=== PATIENT | male | born 1960 | race Caucasian/White ===

== ENCOUNTER 2023-12-15 14:43 | Outpatient (OUT) | payer BC, SELFPAY ==
--- NOTE | 2023-12-15 07:51 | CA_ITS ---
Patient Name: REECE HOGUE MR#: [id number] : 1960 Exam Date: 12/15/2023 Ordering Doctor: JOSE E WOO ECHOCARDIOGRAM REPORT PROCEDURE: CA ECHO DOPPLER COMPLETE INDICATIONS: Hypertensive heart disease without heart failure, Abn EKG COMPARISON: None. DESCRIPTION: COMPLETE ECHOCARDIOGRAM Real-time transthoracic echocardiography with 2D, M-mode, spectral and color flow Doppler performed. QUALITY: Technical quality was adequate. LEFT VENTRICLE: Normal chamber size. Moderate concentric left ventricular hypertrophy. LV EF: Global left ventricular systolic function is normal. Calculated left ventricular ejection fraction is 55% DIASTOLIC: Not adequately assessed due to heart rhythm. ATRIAL SEPTUM: Inadequately seen. LEFT ATRIUM: Severe dilatation. RIGHT ATRIUM: Moderate dilatation. RIGHT VENTRICLE: Mild dilatation. Normal right ventricular systolic function. TRICUSPID VALVE: Normal mobility and thickness. No stenosis with trivial regurgitation. Moderate pulmonary hypertension. RVSP 46mmHg MITRAL VALVE: Normal mobility and thickness. No evidence of mitral valve stenosis. There is no mitral annular calcification. Mild mitral regurgitation. AORTIC VALVE: Normal trileaflet appearance. No visible sclerosis. Normal leaflet mobility. No evidence of aortic valve stenosis. Trivial aortic regurgitation. AORTIC ROOT: Normal diameter and appearance. PULMONIC VALVE: Normal thickness and mobility. No stenosis. Trivial regurgitation. PERICARDIUM: Trivial pericardial effusion. IVC: Collapses with inspirations. Mild dilatation measuring 2.2cm. CONCLUSION: 1. Global left ventricular systolic function is normal; visually estimated ejection is 55 to 60% 2. Moderately increased left ventricular wall thickness 3. The right ventricle is mildly dilated with normal systolic function 4. Biatrial enlargement 5. Moderately increased right ventricular systolic pressure; RVSP 46 mmHg 6. Mild mitral regurgitation 7. Trivial pericardial effusion Adult Echocardiography Procedure Report Left Ventricle LVEDD (3.7 - 5.6 cm): 4.92 cm LVESD (2.2 - 4.0 cm): 3.44 cm LVIVS thickness (0.6 - 1.2 cm): 1.27 cm LVPW thickness (0.5 - 1.0 cm): 1.37 cm e': 0.17 m/s E - e': 4.20 LVOT Max Gradient: 3.17 mm[Hg] LVOT Area (cm2): 0.89 m/s Peak Velocity (LVOT): 0.89 m/s Mean Velocity (LVOT): 0.61 m/s LVOT Diameter 2.34 cm Left Ventricular Ejection Fraction: 55.08 % Left Atrium LA Volume Index (2D A2C): 67.76 ml/m2 Left Atrium Systolic Dimension: 3.87 cm Mitral Valve MV E to A Ratio: 122.69 Mitral Valve A-Wave Peak Velocity: 0.01 m/s Mitral Valve E-Wave Peak Velocity: 0.72 m/s Right Ventricle RV Internal Diastolic Dimension: 4.24 cm Aorta AO Root Diam: 3.60 cm Ascending Ao Diam: 3.30 cm Aortic Valve AoV Area (Peak Carlos): 3.29 cm2, 3.29 cm2 AoV Area (VTI): 3.58 cm2, 3.58 cm2 Peak Velocity(Antegrade Flow): 1.16 m/s Peak Gradient(Antegrade Flow): 5.38 mm[Hg] Mean Velocity(Antegrade Flow): 0.81 m/s Mean Gradient(Antegrade Flow): 3.02 mm[Hg] Velocity Time Integral: 23.39 cm Tricuspid Valve Peak Velocity (Regurgitant Flow): 2.37 m/s, 2.42 m/s, 3.08 m/s Pulmonic Valve Mean Gradient: 2.17 mm[Hg] Mean Velocity: 0.65 m/s Peak Velocity: 1.21 m/s, 1.21 m/s Peak Gradient: 5.83 mm[Hg], 5.83 mm[Hg] Right Atrium Right Atrium Systolic Pressure: 104.78 ml, 104.78 ml Dictated by: Lauro Covarrubias M.D. on 12/17/2023 at 12:56 Approved by: Lauro Covarrubias M.D. on 12/17/2023 at 13:03
== END 2023-12-15 14:44 | disposition home or self-care (01) ==
LOC: CARD 14:44
PROVIDERS: PCP Family Medicine; Visit Provider Internal Medicine Cardiovascular Disease
DX: I11.9 Hypertensive heart disease without heart failure (principal); R94.31 Abnormal electrocardiogram [ECG] [EKG]
CPT/HCPCS: 93306

== ENCOUNTER 2024-01-15 09:32 | Outpatient (REF) | payer BC, OTHER, SELFPAY ==
--- OUTSIDE RECORDS SUMMARY | 2024-01-15 09:37 | XMS_ITS | CCD ---
Author Name Unknown Address [address] [facility] [address] [place] [address] Organization [facility] Care Team Providers Care Patient Accounts Coordinator Name Role Phone PHYSICIAN, DEFAULT Unavailable Unavailable PHYSICIAN, DEFAULT Unavailable Unavailable CHLOÉ, HANI Unavailable Unavailable YURY FUNEZ AM Unavailable Unavailable KACY JACOBSON Unavailable Unavailable PRIMO GLASER Unavailable Unavailable [place] Unavailable Unavailable UNKNOWN, PROVIDER Unavailable Unavailable PHYSICIAN, DEFAULT Unavailable Unavailable PHYSICIAN, DEFAULT Unavailable Unavailable KACY JACOBSON Unavailable Unavailable HAROLDO, RENU Consulting Unavailable HOY ., DR WOODRUFF Primary Care Unavailable HAROLDO, RENU Admitting Unavailable HAROLDO, RENU Attending Unavailable HAROLDO, RENU Attending Unavailable HAROLDO, RENU Consulting Unavailable HOY ., DR WOODRUFF Primary Care Unavailable HAROLDO, RENU Admitting Unavailable HAROLDO, RENU Consulting Unavailable HAROLDO, RENU Admitting Unavailable HOY ., DR WOODRUFF Primary Care Unavailable HAROLDO, RENU Attending Unavailable HAROLDO, RENU Admitting Unavailable HAROLDO, RENU Consulting Unavailable HOY .DR WOODRUFF Primary Care Unavailable HAROLDO, RENU Attending Unavailable HAROLDO, RENU Attending Unavailable HAROLDO, RENU Consulting Unavailable HOY .DR WOODRUFF Primary Care Unavailable HAROLDO, RENU Admitting Unavailable HOY .DR WOODRUFF Primary Care Unavailable HOY ., DR WOODRUFF Admitting Unavailable HOY ., DR WOODRUFF Attending Unavailable HOY ., DR WOODRUFF Consulting Unavailable HOY ., DR WOODRUFF Primary Care Unavailable HOY ., DR WOODRUFF Admitting Unavailable HOY ., DR WOODRUFF Attending Unavailable HOY ., DR WOODRUFF Consulting Unavailable ZIEBER, DR JO Brody Consulting Unavailable Ellie Rodríguez Unavailable Unavailable Luke Reinoso Unavailable Unavailable UNKNOWN, PCP Primary Care Unavailable Luke Reinoso Attending Unavailable UNKNOWN, UNKNOWN Referring Unavailable UNKNOWN, PCP Primary Care Unavailable Dr. Randy Khanna Referring Unavail able Luke Reinoso Attending Unavailable UNKNOWN, PCP Primary Care Unavailable Jaimee Negrete Attending Unavailable Luke Reinoso Referring Unavailable MD Sher Whitfield Attending Provider MD Kacy Jacobson Primary Care Provider Sher Whitfield Unavailable Sher Whitfield Attending Unavailable Sher Whitfield Admitting Unavailable Kacy Jacobson Primary Care Unavailable KATHE DE DIOS Attending Unavailable RANDY CARRANZA Attending Unavailable Allergies Allergy Classification Reported Allergen(s) Allergy Type Date of Onset Reaction(s) Facility (1 source) No Alert Propensity to adverse reactions to drug 3 [facility] Medications Current Medications Medication Drug Class(es) Dates Sig (Normalized) Sig (Original) diclofenac 18 mg oral capsule (1 source) Nonsteroidal Anti-inflammatory Drug take 1 capsule by mouth three times daily as needed Diclofenac 18 MG 1 capsule as needed Orally Three times a day Active lisinopril 10 mg oral tablet (1 source) Angiotensin Converting Enzyme Inhibitor take 1 tablet by mouth every twenty-four hours Lisinopril 10 MG 1 tablet Orally Once a day Active metoprolol tartrate 75 mg oral tablet (1 source) beta-Adrenergic Mehreen take 1 tablet by mouth every twelve hours Metoprolol Tartrate 75 MG 1 tablet with food Orally Twice a day Active rivaroxaban 20 mg oral tablet (1 source) Factor Xa Inhibitor take 1 tablet by mouth every twenty-four hours Xarelto 20 MG 1 tablet with food Orally Once a day Active traZODone hydrochloride 50 mg oral tablet (1 source) Serotonin Reuptake Inhibitor take 1 tablet by mouth every twenty-four hours traZODone HCl 50 MG 1 tablet at bedtime as needed Orally Once a day Active (4 sources) Problems Problem Classification Problem Date Documented Da te Episodic/Chronic Cardiac dysrhythmias (3 sources) Unspecified atrial fibrillation; 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: [Paroxysmal atrial fibrillation] Onset: 09-10-2018 Chronic Hypertension with complications and secondary hypertension (3 sources) Hypertensive heart disease without heart failure; 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: [HTN HEART DISEASE W/O HEART FAIL] Onset: 09-10-2022 Chronic Other aftercare (1 source) 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; 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: [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] Onset: 09-10-2018 Episodic Other aftercare (2 sources) Encounter for removal of sutures Onset: 03-18-2023 Episodic Other connective tissue disease (1 source) Pain in right leg Episodic Other connective tissue disease (1 source) Pain in left leg Episodic Other nervous system disorders (4 sources) Anesthesia of skin; 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: [ANESTHESIA OF SKIN] Onset: 02-18-2023 Episodic Other screening for suspected conditions (not mental disorders or infectious disease) (1 source) Encounter for screening for malignant neoplasm of prostate; 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: [ENC SCREEN MALIG NEOPLASM PROSTATE] Onset: 01-26-2023 Episodic Residual codes; unclassified (4 sources) Obstructive sleep apnea (adult) (pediatric); 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: [OBSTRUCTIVE SLEEP APNEA] Onset: 12-09-2022 Chronic Residual codes; unclassified (2 sources) No current problems or disability; 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: [Other specified conditions influencing health status] Onset: 03-02-2023 Episodic Spondylosis; intervertebral disc disorders; other back problems (1 source) Spinal stenosis, lumbar region without neurogenic claudication Episodic Unclassified (2 sources) Unknown / UNK(Unknown) Onset: 09-10-2018 Unclassified (6 sources) Permanent atrial fibrillation; 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: [PERMANENT ATRIAL FIBRILLATION] Onset: 08-19-2022 Unclassified (6 sources) Chronic atrial fibrillation, unspecified; 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: [CHRONIC ATRIAL FIBRILLATION UNSPEC] Onset: 09-24-2022 Unclassified (1 source) Low back pain, unspecified; 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: [Low back pain, unspecified] Onset: 10-01-2023 Results Test Name Value Interpretation Reference Range Facility Office Visiton 11-10-2023 Follow-up visit [id number] Susanna Hogue 1960 M Date Provider Department Center 11/10/2023 RANDY JOHNSTON BRITNEY [facility] Family History Problem Relation Age of Onset Heart attack Maternal Grandfather Family Status - Relation Status Age at Maternal Grandfather Level of Service:31942 [place] OFFICE/OUTPATIENT ESTABLISHED LOW MDM 20 MIN Normal [facility] Orders Onlyon 11-10-2023 Orders Only [id number] Susanna Hogue D 1960 M Date Provider Department Center 11/10/2023 CRISTINO AYALA BRITNEY Luis Family History Problem Relation Age of Onset Heart attack Maternal Grandfather Family Status - Relation Status Age at Maternal Grandfather [facility] XR lumbar spine 6V w bending on 10-01-2023 XR lumbar spine 6V w bending [facility] [place] [address] [place], [place] [id number] XRay Report Signed Patient: Reece Hogue MR#: [id number] : 1960 Acct:[id number] Age/Sex: 63 / M ADM Date: 10/01/23 Loc: XD Room: Type: [facility] Attending Dr: Sher Whitfield MD Copies to: Sher Whitfield MD Ordering Provider: Sher Whitfield MD Date of Service: 10/01/23 XR/XR lumbar spine 6V w bending: M54.50 LUMBAR SPINE WITH FLEXION, EXTENSION AND BENDING VIEWS - 6 views: CLINICAL HISTORY: Numbness and tingling at the legs. Back pain. COMPARISON: MRI 02/18/2023 Standing AP neutral, right and left bending as well as lateral views in neutral, flexion and extension were obtained. There is osteopenia. There is redemonstration of retrolisthesis of L2 on L3, L3 on L4 and L5 on S1. Alignment does not change significantly with flexion or extension. There are no acute fractures. There is multilevel disc space narrowing, endplate spurring and facet disease. The SI joints show mild sclerosis. There are no paraspinal soft tissue abnormalities. XR/XR lumbar spine 6V w bending IMPRESSION: MULTILEVEL DEGENERATIVE CHANGES. Impression dictated by: Nila Christensen M.D.10/01/2023 12:35 PM Dictation Location: [place] [address] Transcribed By: [facility] 10/01/23 1235 Dictated By: Nila Christensen MD 10/01/23 1226 Signed By: 10/01/23 1235 [facility] Office Visiton 04-01-2023 Follow-up visit [id number] Susanna Hogue Dionicio 1960 M Date Provider Department Center 04/01/2023 KATHE POLLACK Family History Problem Relation Age of Onset Heart attack Maternal Grandfather Family Status - Relation Status Age at Maternal Grandfather Level of Service:52375 [place] OFFICE/OUTPATIENT ESTABLISHED MOD MDM 30-39 MIN Reason for Visit and Comments: Atrial Fibrillation [80] Hypertension [299800] Normal [facility] Dermatopathologyon 3 Dermatopathology Name: REECE HOGUE Pathologist: JAIMEE NEGRETE MD Date of Procedure: 02/24/2023 Date Received: 02/24/2023 Date Reported 02/25/2023 Submitting Physician: LUKE REINOSO MD, Location: [facility] Copy To/Referring/Attending: MD KAUR PERDOMO FINAL DIAGNOSIS 4 SLIDES, [facility], #[id number] (BX: 02/03/2023) SKIN, LEFT NASAL SIDEWALL, SHAVE BIOPSY: MALIGNANT MELANOMA, BRESLOW THICKNESS AT LEAST 0.5 MM, PRESENT ON THE DEEP AND PERIPHERAL MARGIN, SEE NOTE. Note: Microscopic examination reveals a specimen that extends into the mid reticular dermis. There is dense solar elastosis and there is an asymmetric proliferation of nested and single atypical melanocytes along the dermal-epidermal junction and involving follicular epithelium. There is an area of single atypical hyperchromatic cells in the dermis that stain with antibodies against SOX-10 and PRAME. The melanocytes in the epidermis stain weakly with antibodies against Melan-A. Electronically Signed Out by JAIMEE NEGRETE M.D. CANCER SUMMARY REPORT A. 4 SLIDES, [facility], #[id number] (BX: 02/03/2023): SPECIMEN Procedure: Biopsy, shave Specimen Laterality: Left TUMOR Tumor Site: Skin of other and unspecified parts of face: Left nasal sidewall Histologic Type: Lentigo maligna melanoma Maximum Tumor (Breslow) Thickness (Millimeters): At least: 0.5 mm Focally transected on the deep margin. Ulceration: Not identified Anatomic (Tee) Level: At least level: III Focally transected on the deep margin. Mitotic Rate: None identified Microsatellite(s): Not identified Lymphovascular Invasion: Not identified Neurotropism: Not identified Tumor-Infiltrating Lymphocytes: Not identified Tumor Regression: Not identified MARGINS Margin Status for Invasive Melanoma: Invasive melanoma present at margin Margin(s) Involved by Invasive Melanoma: Deep Margin Status for Melanoma in situ: Melanoma in situ present at margin Margin(s) Involved by Melanoma in Situ: Peripheral Deep: At the periphery PATHOLOGIC STAGE CLASSIFICATION (pTNM, AJCC 8th Edition) Reporting of pT categories is based on information available to the pathologist at the time the report is issued. As per the AJCC (Chapter 1, 8th Ed.) it is the managing physician?s responsibility to establish the final pathologic stage based upon all pertinent information, including but potentially not limited to this pathology report. pT Category: pT1a ADDITIONAL FINDINGS Additional Findings: None ADDITIONAL TESTING Wax Pumper Blocks: Normal Block: None Tumor Block: A1 Electronically Signed Out By JAIMEE NEGRETE MD/MARISSA Diagnostic interpretation performed at [facility] [address] [facility], [facility] [address] Clinical History: 8 MM, NEOPLASM OF UNSPECIFIED BEHAVIOR VS. LENTIGO Specimens Submitted As: A: 4 SLIDES, [facility], #[id number] (BX: 02/03/2023) Gross Description: Received for consultation from [facility] are four slides labeled [id number] (BX: 02/03/2023) along with the corresponding pathology report. Slide/Block Description 4 SLIDES, [id number]. Keep Slides: N Slides Returned: N Personal Consult: N [facility] Comment on above: Performed By: #### D #### Dermatopathology MRI LSPINE WO CONon 02-19-20 23 MRI LSPINE WO CON EXAMINATION: MRI LSP INE WO CON HISTORY: Numbness ; chronic numbness and tingling in both legs COMPARISON: No relevant comparison available. TECHNIQUE: A variety of imaging planes and parameters were utilized for visualization of suspected pathology. FINDINGS: For the purposes of numbering, sagittal T2 image # 8 extends from the T11 vertebral body superiorly to the S3 level inferiorly. PARASPINAL AREA: Normal with no visible mass. BONES: No fracture, pars defect, or osseous lesion. CORD/CAUDA EQUINA: Normal caliber, contour, and signal intensity. DISC LEVELS: 12-L1: Moderate degenerative disc disease is present without visible neural impingement. L1-L2: Moderate degenerative disc disease is present without visible neural impingement. L2-L3: Marked central canal narrowing with moderate-marked foramen narrowing bilaterally. Moderate diffuse disc bulging with moderate-marked disc height reduction. Mild degenerative facet arthropathy. L3-L4: Moderate central canal and bilateral foramen narrowing. Mild diffuse disc bulging with moderate disc height reduction. Moderate degenerative facet arthropathy and ligamentum flavum thickening. L4-L5: Marked central canal narrowing. Moderate foramen narrowing bilaterally. Moderate diffuse disc bulging with posterior disc-osteophyte complex. Moderate disc height reduction and marked right, moderate left degenerative facet arthropathy. L5-S1: Mild central canal, moderate right, marked left foramen narrowing. Moderate diffuse disc bulging with mild disc at reduction. Moderate degenerative facet arthropathy bilaterally. IMPRESSION: 1. Marked central canal narrowing L2-L3, L4-L5. Moderate at L3-L4. 2. Multilevel moderate to marked foraminal narrowing secondary to degenerative disc disease and facet arthropathy. Electronically authenticated by: JO RUSSELL Date: 2023-02-18 14:29 Normal [facility] INSULINon 01-23-2023 Insulin 7.9 uIU/mL Normal 2.6-24.9 [facility] Comment on above: Performed By: #### T 7, URIC, TSH, CMP, LIPID #### [facility] [address] [place] [address] [address] Ayush Sorto CBC AUTO DIFFon 01-22-2023 BASO # 0.0 103/ul Normal 0.0-0.1 [facility] Comment on above: Performed By: #### C BC #### [facility] [address] [address] [address] Ayush Sorto Basophils/100 WBC (Bld) 0.6 % Normal 0.2-2.0 [facility] Comment on above: Performed By: #### C BC #### [facility] [address] [address] [address] Ayush Sorto EO # 0.2 103/ul Normal 0.0-0.7 [facility] Comment on above: Performed By: #### C BC #### [facility] [address] [place] [address] Dr. Ayush Sorto Eosinophils/100 WBC (Bld) 2.3 % Normal 0.9-7.0 [facility] Comment on above: Performed By: #### C BC #### [facility] [address] [place] [address] Dr. Ayuhs Sorto Erythrocyte distribution width (RBC) [Ratio] 13.2 % Normal 11.0-15.0 [facility] Comment on above: Performed By: #### C BC #### [facility] [address] [place] [address] Dr. Ayush Sorto Hematocrit (Bld) [Volume fraction] 48.6 % Normal 42.0-54.0 [facility] Comment on above: Performed By: #### C BC #### [facility] [address] [place] [address] Dr. Ayush Sorto Hemoglobin (Bld) [Mass/Vol] 16.4 g/dL Normal 14.0-18.0 [facility] Comment on above: Performed By: #### C BC #### [facility] [address] [place] [address] Dr. Ayush Sorto IG # 0.02 10e3/ul Normal 0.00-0.03 [facility] Comment on above: Performed By: #### C BC #### [facility] [address] [place] [address] Dr. Ayush Sorto IG % 0.3 % Normal 0.0-0.5 [facility] Comment on above: Performed By: #### C BC #### [facility] [address] [place] [address] Dr. Ayush Sorto LYMPH # 1.6 103/ul Normal 1.2-3.8 [facility] Comment on above: Performed By: #### C BC #### [facility] [address] [place] [address] Dr. Ayush Sorto Lymphocytes/100 WBC (Bld) 24.7 % Normal 20.5-60.0 [facility] Comment on above: Performed By: #### C BC #### [facility] [address] [place] [address] Dr. Ayush Sorto MANUAL DIFF REQ NO Normal [facility] Comment on above: Performed By: #### C BC #### [facility] [address] [address] [address] Ayush Sorto MCH (RBC) [Entitic mass] 30.0 pg Normal 25.9-34.0 [facility] Comment on above: Performed By: #### C BC #### [facility] [address] [place] [address] Dr. Ayush Sorto MCHC (RBC) [Mass/Vol] 33.7 g/dL Normal 29.9-35.2 [facility] Comment on above: Performed By: #### C BC #### [facility] [address] [place] [address] Dr. Ayush Sorto MCV (RBC) [Entitic vol] 89.0 fL Normal 80.0-94.0 [facility] Comment on above: Performed By: #### C BC #### [facility] [address] [place] [address] Dr. Ayush Sorto MONO # 0.7 103/ul Normal 0.3-0.8 [facility] Comment on above: Performed By: #### C BC #### [facility] [address] [place] [address] Dr. Ayush Sorto Monocytes/100 WBC (Bld) 10.1 % Normal 1.7-12.0 [facility] Comment on above: Performed By: #### C BC #### [facility] [address] [place] [address] Dr. Ayush Sorto NEUT # 4.1 103/ul Normal 1.4-6.5 [facility] Comment on above: Performed By: #### C BC #### [facility] [address] [place] [address] Dr. Ayush Sorto Neutrophils/100 WBC (Bld) 62.0 % Normal 43.0-75.0 [facility] Comment on above: Performed By: #### C BC #### [facility] [address] [place] [address] Dr. Ayush Sorto Platelet mean volume (Bld) [Entitic vol] 8.6 fL Critically low 9.5-13.5 [facility] Comment on above: Performed By: #### C BC #### [facility] [address] [address] [address] Ayush Sorto PLT 248 103/ul Normal 150-450 [facility] Comment on above: Performed By: #### C BC #### [facility] [address] [place] [address] Dr. Ayush Sorto RBC 5.46 106/ul Normal 4.70-6.10 [facility] Comment on above: Performed By: #### C BC #### [facility] [address] [address] [address] Ayush Sorto WBC 6.6 103/ul Normal 4.0-11.0 [facility] Comment on above: Performed By: #### C BC #### [facility] [address] [place] [address] Dr. Ayush Sorto FREE THYROXINE INDEX T7on FTI 3.31 Normal 1.30-4.50 [facility] Comment on above: Performed By: #### T 7, URIC, TSH, CMP, LIPID #### [facility] [address] [place] [address] Dr. Ayush Sorto T3U 36.0 % Normal 33.0-40.0 [facility] Comment on above: Performed By: #### T 7, URIC, TSH, CMP, LIPID #### [facility] [address] [place] [address] Dr. Ayush Sorto T4 [Mass/Vol] 9.20 ug/dL Normal 4.50-12.10 [facility] Comment on above: Performed By: #### T 7, URIC, TSH, CMP, LIPID #### [facility] [address] [place] [address] Dr. Ayush Sorto GLYCOHEMOGLOBIN A1Con 2022 ADA RECOMMENDATION SEE BELOW Normal [facility] Comment on above: Result Comment: ADA RECOMMENDED LIMIT 4.0 - 6.0 ADA THERAPEUTIC TARGET < 7.0 ACTION SUGGESTED > 7.0 Performed By: #### T 7, URIC, TSH, CMP, LIPID #### [facility] [address] [place] [address] Dr. Ayush Sorto Glucose [Mass/Vol] 117 mg/dL Normal [facility] Comment on above: Performed By: #### T 7, URIC, TSH, CMP, LIPID #### [facility] [address] [address] [address] Ayush Sorto HbA1c (Bld) [Mass fraction] 5.7 % Normal 4.5-6.2 [facility] Comment on above: Performed By: #### T 7, URIC, TSH, CMP, LIPID #### [facility] [address] [address] [address] Ayush Sorot LIPID PROFILEon 01-22-2023 CHOL-HDL RATIO NORM SEE BELOW Normal [facility] Comment on above: Result Comment: 3.3 - 4.4 LOW RISK 4.4 - 7.1 AVERAGE RISK 7.1 - 11.0 MODERATE RISK >11.0 HIGH RISK Performed By: #### T 7, URIC, TSH, CMP, LIPID #### [facility] [address] [place] [address] Dr. Ayush Sorto Cholesterol [Mass/Vol] 216 mg/dL Critically high <=200 [facility] Comment on above: Performed By: #### T 7, URIC, TSH, CMP, LIPID #### [facility] [address] [place] [address] Dr. Ayush Sorto Cholesterol in HDL [Mass/Vol] 68 mg/dL Critically high 40-60 [facility] Comment on above: Performed By: #### T 7, URIC, TSH, CMP, LIPID #### [facility] [address] [place] [address] Dr. Ayush Sorto Cholesterol in LDL [Mass/Vol] 136.6 mg/dL Normal [facility] Comment on above: Performed By: #### T 7, URIC, TSH, CMP, LIPID #### [facility] [address] [place] [address] Dr. Ayush Sorto Cholesterol.total/C holesterol in HDL [Mass ratio] 3.2 {ratio} Normal [facility] Comment on above: Performed By: #### T 7, URIC, TSH, CMP, LIPID #### [facility] [address] [place] [address] Dr. Ayush Sorto HDL NORMAL > or = 60 mg/dl - LO W CARDIOVASCULAR RISK <40 mg/dl - HIGH CARDIOVASCULAR RISK Normal [facility] Comment on above: Performed By: #### T 7, URIC, TSH, CMP, LIPID #### [facility] [address] [place] [address] Dr. Ayush Sorto LDL CALC NORMAL SEE BELOW Normal [facility] Comment on above: Result Comment: <100 mg/dl OPTIMAL 100 - 129 mg/dl NEAR OR ABOVE OPTIMAL 130 - 159 mg/dl BORDERLINE HIGH 160 - 189 mg/dl HIGH >190 mg/dl VERY HIGH Performed By: #### T 7, URIC, TSH, CMP, LIPID #### [facility] [address] [address] [address] Ayush Sorto Triglyceride [Mass/Vol] 57 mg/dL Normal <=150 [facility] Comment on above: Performed By: #### T 7, URIC, TSH, CMP, LIPID #### [facility] [address] [place] [address] Dr. Ayush Sorto VLDL CALC 11.4 mg/dL Normal [facility] Comment on above: Performed By: #### T 7, URIC, TSH, CMP, LIPID #### [facility] [address] [place] [address] Dr. Ayush Sorto PROF 14(COMP METB)on 023 Albumin [Mass/Vol] 4.0 g/dL Normal 3.4-5.0 [facility] Comment on above: Performed By: #### T 7, URIC, TSH, CMP, LIPID #### [facility] [address] [place] [address] Dr. Ayush Sorto Albumin/Globulin [Mass ratio] 1.2 {ratio} Normal [facility] Comment on above: Performed By: #### T 7, URIC, TSH, CMP, LIPID #### [facility] [address] [place] [address] Dr. Ayush Sorto ALP [Catalytic activity/Vol] 85 U/L Normal 46-116 [facility] Comment on above: Performed By: #### T 7, URIC, TSH, CMP, LIPID #### [facility] [address] [address] [address] Ayush Sorto ALT [Catalytic activity/Vol] 28 U/L Normal 16-63 [facility] Comment on above: Performed By: #### T 7, URIC, TSH, CMP, LIPID #### [facility] [address] [address] [address] Ayush Sorto Anion gap [Moles/Vol] 12.9 mmol/L Normal [facility] Comment on above: Performed By: #### T 7, URIC, TSH, CMP, LIPID #### [facility] [address] [address] [address] Ayush Sorto AST [Catalytic activity/Vol] 23 U/L Normal 15-37 [facility] Comment on above: Performed By: #### T 7, URIC, TSH, CMP, LIPID #### [facility] [address] [place] [address] Dr. Ayush Sorto Bilirubin [Mass/Vol] 1.1 mg/dL Critically high 0.2-1.0 [facility] Comment on above: Performed By: #### T 7, URIC, TSH, CMP, LIPID #### [facility] [address] [address] [address] Ayush Sorto Calcium [Mass/Vol] 9.2 mg/dL Normal 8.5-10.1 [facility] Comment on above: Performed By: #### T 7, URIC, TSH, CMP, LIPID #### [facility] [address] [address] [address] Ayush Sorto Chloride [Moles/Vol] 103 mmol/L Normal 98-107 [facility] Comment on above: Performed By: #### T 7, URIC, TSH, CMP, LIPID #### [facility] [address] [address] [address] Ayush Sorto CO2 [Moles/Vol] 27.9 mmol/L Normal 21.0-32.0 [facility] Comment on above: Performed By: #### T 7, URIC, TSH, CMP, LIPID #### [facility] [address] [address] [address] Ayush Sorto Creatinine [Mass/Vol] 0.88 mg/dL Normal 0.70-1.30 [facility] Comment on above: Performed By: #### T 7, URIC, TSH, CMP, LIPID #### [facility] [address] [place] [address] Dr. Ayush Sorto EGFR-AF MONTENEGRIN >60 Normal >=60 [facility] Comment on above: Performed By: #### T 7, URIC, TSH, CMP, LIPID #### [facility] [address] [address] [address] Ayush Sorto EGFR-NON AF MONTENEGRIN >60 Normal >=60 [facility] Comment on above: Performed By: #### T 7, URIC, TSH, CMP, LIPID #### [facility] [address] [place] [address] Dr. Ayush Sorto Globulin (S) [Mass/Vol] 3.4 g/dL Normal [facility] Comment on above: Performed By: #### T 7, URIC, TSH, CMP, LIPID #### [facility] [address] [place] [address] Dr. Ayush Sorto Glucose [Mass/Vol] 93 mg/dL Normal 74-106 [facility] Comment on above: Performed By: #### T 7, URIC, TSH, CMP, LIPID #### [facility] [address] [place] [address] Dr. Ayush Sorto Potassium [Moles/Vol] 4.8 mmol/L Normal 3.5-5.1 [facility] Comment on above: Performed By: #### T 7, URIC, TSH, CMP, LIPID #### [facility] [address] [place] [address] Dr. Ayush Sorto Protein [Mass/Vol] 7.4 g/dL Normal 6.4-8.2 [facility] Comment on above: Performed By: #### T 7, URIC, TSH, CMP, LIPID #### [facility] [address] [place] [address] Dr. Ayush Sorto Sodium [Moles/Vol] 139 mmol/L Normal 136-145 [facility] Comment on above: Performed By: #### T 7, URIC, TSH, CMP, LIPID #### [facility] [address] [place] [address] Dr. Ayush Sorto Urea nitrogen [Mass/Vol] 23.0 mg/dL Critically high 7.0-18.0 [facility] Comment on above: Performed By: #### T 7, URIC, TSH, CMP, LIPID #### [facility] [address] [place] [address] Dr. Ayush Sorto Urea nitrogen/Creatinine [Mass ratio] 26.1 mg/mg Normal [facility] Comment on above: Performed By: #### T 7, URIC, TSH, CMP, LIPID #### [facility] [address] [place] [address] Dr. Ayush Sorto TSHon 01-22-2023 TSH 1.145 uIU/mL Normal 0.358-3.74 0 [facility] Comment on above: Performed By: #### T 7, URIC, TSH, CMP, LIPID #### [facility] [address] [place] [address] Dr. Ayush Sorto URIC ACID SERUMon 01-22-2023 Urate [Mass/Vol] 6.8 mg/dL Normal 3.5-7.2 [facility] Comment on above: Performed By: #### T 7, URIC, TSH, CMP, LIPID #### [facility] [address] [place] [address] Dr. Ayush Sorto VITAMIN D 25 OHon 01-22-2023 VIT D 25-OH 72.7 ng/mL Normal [facility] Comment on above: Performed By: #### V PLACIDO, PSASC #### [facility] [address] [place] [address] Dr. Ayush Sorto VIT D RANGES SEE BELOW Normal [facility] Comment on above: Result Comment: <20 ng/mL Vit D deficient 20 - <30 ng/mL Vit D insufficient 30 - 100 ng/mL Vit D sufficient >100 ng/mL Potential Toxicity Performed By: #### V PLACIDO, PSASC #### [facility] [address] [place] [address] Dr. Ayush Sorto PROF CHEM 8 (BAS METB)on Anion gap [Moles/Vol] 10.1 mmol/L Normal [facility] Comment on above: Performed By: #### T 7, URIC, TSH, CMP, LIPID #### [facility] [address] [place] [address] Dr. Ayush Sorto Calcium [Mass/Vol] 9.3 mg/dL Normal 8.5-10.1 [facility] Comment on above: Performed By: #### T 7, URIC, TSH, CMP, LIPID #### [facility] [address] [place] [address] Dr. Ayush Sorto Chloride [Moles/Vol] 102 mmol/L Normal 98-107 [facility] Comment on above: Performed By: #### T 7, URIC, TSH, CMP, LIPID #### [facility] [address] [place] [address] Dr. Ayush Sorto CO2 [Moles/Vol] 31.8 mmol/L Normal 21.0-32.0 [facility] Comment on above: Performed By: #### T 7, URIC, TSH, CMP, LIPID #### [facility] [address] [place] [address] Dr. Ayush Sorto Creatinine [Mass/Vol] 1.03 mg/dL Normal 0.70-1.30 [facility] Comment on above: Performed By: #### T 7, URIC, TSH, CMP, LIPID #### [facility] [address] [place] [address] Dr. Ayush Sorto EGFR-AF MONTENEGRIN >60 Normal >=60 [facility] Comment on above: Performed By: #### T 7, URIC, TSH, CMP, LIPID #### [facility] [address] [place] [address] Dr. Ayush Sorto EGFR-NON AF MONTENEGRIN >60 Normal >=60 [facility] Comment on above: Performed By: #### T 7, URIC, TSH, CMP, LIPID #### [facility] [address] [place] [address] Dr. Ayush Sorto Glucose [Mass/Vol] 121 mg/dL Critically high 74-106 [facility] Comment on above: Performed By: #### T 7, URIC, TSH, CMP, LIPID #### [facility] [address] [address] [address] Ayush Sorto Potassium [Moles/Vol] 4.9 mmol/L Normal 3.5-5.1 [facility] Comment on above: Performed By: #### T 7, URIC, TSH, CMP, LIPID #### [facility] [address] [address] [address] Ayush Sorto Sodium [Moles/Vol] 139 mmol/L Normal 136-145 [facility] Comment on above: Performed By: #### T 7, URIC, TSH, CMP, LIPID #### [facility] [address] [address] [address] Ayush Sorto Urea nitrogen [Mass/Vol] 15.0 mg/dL Normal 7.0-18.0 [facility] Comment on above: Performed By: #### T 7, URIC, TSH, CMP, LIPID #### [facility] [address] [address] [address] Ayush Sorto Urea nitrogen/Creatinine [Mass ratio] 14.6 mg/mg Normal [facility] Comment on above: Performed By: #### T 7, URIC, TSH, CMP, LIPID #### [facility] [address] [place] [address] Dr. Ayush Sorto ECHOCARDIO M/2D COMPLETEon 1 11-24-2021 ECHOCARDIO M/2D COMPLETE Patient: REECE HOGUE Exam Date: 09/24/2022 : 1960 Gender:M Ordering : RENU ZARCO [facility] Admission #: [id number] Family : DR KACY JACOBSON . Order #: [id number] CLICK HERE TO VIEW EXAM ECHOCARDIOGRAM REPORT PROCEDURE: CARDIO PULMONARY ECHOCARDIO M/2D COMP INDICATIONS: Chronic atrial fibrillation, hypertension COMPARISON: None. DESCRIPTION: COMPLETE ECHOCARDIOGRAM Real-time transthoracic echocardiography with 2D, M-mode, spectral and color flow Doppler performed. QUALITY: Technical quality was good. 76 225# BP 168/96 LEFT VENTRICLE: Normal chamber size. Mild concentric left ventricular hypertrophy. LV EF: Normal left ventricular ejection fraction, (>55%). DIASTOLIC: Not adequately assessed due to heart rhythm. ATRIAL SEPTUM: Visually appears intact. LEFT ATRIUM: Moderate dilatation. RIGHT ATRIUM: Moderate dilatation. RIGHT VENTRICLE: Moderate dilatation. Systolic function appears preserved. TRICUSPID VALVE: Normal mobility and thickness. No stenosis with trivial regurgitation. Doppler studies reveal mildly (35-45) elevated right sided pressures. RVSP 40 mmHg MITRAL VALVE: Normal mobility and thickness. No evidence of mitral valve stenosis. There is no mitral annular calcification. Mild mitral regurgitation. AORTIC VALVE: Normal trileaflet appearance. No visible sclerosis. Normal leaflet mobility. No evidence of aortic valve stenosis. No aortic regurgitation. AORTIC ROOT: Normal diameter and appearance. PULMONIC VALVE: Normal thickness and mobility. No stenosis. Trivial regurgitation. PERICARDIUM: No evidence of pericardial effusion. IVC: Collapses with inspirations. IVC is dilated (2.5 cm). PLEURA: CONCLUSION: 1. Mild concentric left ventricular hypertrophy. Normal left ventricular systolic function. LVEF is 55 to 60%. 2. Moderately dilated right ventricle with preserved systolic function. 3. Moderate biatrial dilatation. 4. No significant valvular dysfunction. 5. Mildly elevated right-sided pressures. 6. No pericardial effusion. Adult Echocardiography Procedure Report Left Ventricle Left Atrium Mitral Valve Right Ventricle Aorta Aortic Valve Tricuspid Valve Pulmonic Valve Right Atrium Dictated by: Lizette Haines M.D. on 09/24/2022 at 16:20 Approved by: Lizette Haines M.D. on 09/24/2022 at 16:24 Normal [facility] CBC AUTO DIFFon 09-10-2022 BASO # 0.1 103/ul Normal 0.0-0.1 [facility] Comment on above: Performed By: #### C BC #### [facility] [address] [place] [address] Dr. Ayush Sorto Basophils/100 WBC (Bld) 0.8 % Normal 0.2-2.0 [facility] Comment on above: Performed By: #### C BC #### [facility] [address] [address] [address] Ayush Sorto EO # 0.1 103/ul Normal 0.0-0.7 [facility] Comment on above: Performed By: #### C BC #### [facility] [address] [place] [address] Dr. Ayush Sorto Eosinophils/100 WBC (Bld) 1.3 % Normal 0.9-7.0 [facility] Comment on above: Performed By: #### C BC #### [facility] [address] [place] [address] Dr. Ayush Sorto Erythrocyte distribution width (RBC) [Ratio] 12.8 % Normal 11.0-15.0 [facility] Comment on above: Performed By: #### C BC #### [facility] [address] [place] [address] Dr. Ayush Sorto Hematocrit (Bld) [Volume fraction] 48.5 % Normal 42.0-54.0 [facility] Comment on above: Performed By: #### C BC #### [facility] [address] [place] [address] Dr. Ayush Sorto Hemoglobin (Bld) [Mass/Vol] 16.2 g/dL Normal 14.0-18.0 [facility] Comment on above: Performed By: #### C BC #### [facility] [address] [place] [address] Dr. Ayush Sorto IG # 0.01 10e3/ul Normal 0.00-0.03 [facility] Comment on above: Performed By: #### C BC #### [facility] [address] [place] [address] Dr. Ayush Sorto IG % 0.2 % Normal 0.0-0.5 [facility] Comment on above: Performed By: #### C BC #### [facility] [address] [place] [address] Dr. Ayush Sorto LYMPH # 1.0 103/ul Critically low 1.2-3.8 [facility] Comment on above: Performed By: #### C BC #### [facility] [address] [place] [address] Dr. Ayush Sorto Lymphocytes/100 WBC (Bld) 15.6 % Critically low 20.5-60.0 [facility] Comment on above: Performed By: #### C BC #### [facility] [address] [place] [address] Dr. Ayush Sorto MANUAL DIFF REQ NO Normal [facility] Comment on above: Performed By: #### C BC #### [facility] [address] [place] [address] Dr. Ayush Sorto MCH (RBC) [Entitic mass] 30.5 pg Normal 25.9-34.0 [facility] Comment on above: Performed By: #### C BC #### [facility] [address] [place] [address] Dr. Ayush Sorto MCHC (RBC) [Mass/Vol] 33.4 g/dL Normal 29.9-35.2 [facility] Comment on above: Performed By: #### C BC #### [facility] [address] [place] [address] Dr. Ayush Sorto MCV (RBC) [Entitic vol] 91.3 fL Normal 80.0-94.0 [facility] Comment on above: Performed By: #### C BC #### [facility] [address] [place] [address] Dr. Ayush Sorto MONO # 0.6 103/ul Normal 0.3-0.8 [facility] Comment on above: Performed By: #### C BC #### [facility] [address] [place] [address] Dr. Ayush Sorto Monocytes/100 WBC (Bld) 9.2 % Normal 1.7-12.0 [facility] Comment on above: Performed By: #### C BC #### [facility] [address] [place] [address] Dr. Ayush Sorto NEUT # 4.5 103/ul Normal 1.4-6.5 [facility] Comment on above: Performed By: #### C BC #### [facility] [address] [place] [address] Dr. Ayush Sorto Neutrophils/100 WBC (Bld) 72.9 % Normal 43.0-75.0 [facility] Comment on above: Performed By: #### C BC #### [facility] [address] [place] [address] Dr. Ayush Sorto Platelet mean volume (Bld) [Entitic vol] 8.9 fL Critically low 9.5-13.5 [facility] Comment on above: Performed By: #### C BC #### [facility] [address] [address] [address] Ayush Sorto PLT 226 103/ul Normal 150-450 [facility] Comment on above: Performed By: #### C BC #### [facility] [address] [address] [address] Ayush Sorto RBC 5.31 106/ul Normal 4.70-6.10 [facility] Comment on above: Performed By: #### C BC #### [facility] [address] [address] [address] Ayush Sorto WBC 6.2 103/ul Normal 4.0-11.0 [facility] Comment on above: Performed By: #### C BC #### [facility] [address] [place] [address] Dr. Ayush Sorto LIPID PROFILEon 09-10-2022 CHOL-HDL RATIO NORM SEE BELOW Normal [facility] Comment on above: Result Comment: 3.3 - 4.4 LOW RISK 4.4 - 7.1 AVERAGE RISK 7.1 - 11.0 MODERATE RISK >11.0 HIGH RISK Performed By: #### T 7, URIC, TSH, CMP, LIPID #### [facility] [address] [place] [address] Dr. Ayush Sorto Cholesterol [Mass/Vol] 206 mg/dL Critically high <=200 [facility] Comment on above: Performed By: #### T 7, URIC, TSH, CMP, LIPID #### [facility] [address] [address] [address] Ayush Sorto Cholesterol in HDL [Mass/Vol] 73 mg/dL Critically high 40-60 [facility] Comment on above: Performed By: #### T 7, URIC, TSH, CMP, LIPID #### [facility] [address] [address] [address] Ayush Sorto Cholesterol in LDL [Mass/Vol] 123.2 mg/dL Normal [facility] Comment on above: Performed By: #### T 7, URIC, TSH, CMP, LIPID #### [facility] [address] [address] [address] Ayush Sorto Cholesterol.total/C holesterol in HDL [Mass ratio] 2.8 {ratio} Normal [facility] Comment on above: Performed By: #### T 7, URIC, TSH, CMP, LIPID #### [facility] [address] [address] [address] Ayush Sorto HDL NORMAL > or = 60 mg/dl - LO W CARDIOVASCULAR RISK <40 mg/dl - HIGH CARDIOVASCULAR RISK Normal [facility] Comment on above: Performed By: #### T 7, URIC, TSH, CMP, LIPID #### [facility] [address] [address] [address] Ayush Sorto LDL CALC NORMAL SEE BELOW Normal [facility] Comment on above: Result Comment: <100 mg/dl OPTIMAL 100 - 129 mg/dl NEAR OR ABOVE OPTIMAL 130 - 159 mg/dl BORDERLINE HIGH 160 - 189 mg/dl HIGH >190 mg/dl VERY HIGH Performed By: #### T 7, URIC, TSH, CMP, LIPID #### [facility] [address] [address] [address] Ayush Sorto Triglyceride [Mass/Vol] 49 mg/dL Normal <=150 [facility] Comment on above: Performed By: #### T 7, URIC, TSH, CMP, LIPID #### [facility] [address] [address] [address] Ayush Sorto VLDL CALC 9.8 mg/dL Normal [facility] Comment on above: Performed By: #### T 7, URIC, TSH, CMP, LIPID #### [facility] [address] [address] [address] Ayush Sorto PROF 14(COMP METB)on 022 Albumin [Mass/Vol] 4.0 g/dL Normal 3.4-5.0 [facility] Comment on above: Performed By: #### T 7, URIC, TSH, CMP, LIPID #### [facility] [address] [address] [address] Ayush Sorto Albumin/Globulin [Mass ratio] 1.2 {ratio} Normal [facility] Comment on above: Performed By: #### T 7, URIC, TSH, CMP, LIPID #### [facility] [address] [place] [address] Dr. Ayush Sorto ALP [Catalytic activity/Vol] 83 U/L Normal 46-116 [facility] Comment on above: Performed By: #### T 7, URIC, TSH, CMP, LIPID #### [facility] [address] [place] [address] Dr. Ayush Sorto ALT [Catalytic activity/Vol] 35 U/L Normal 16-63 [facility] Comment on above: Performed By: #### T 7, URIC, TSH, CMP, LIPID #### [facility] [address] [place] [address] Dr. Ayush Sorto Anion gap [Moles/Vol] 9.0 mmol/L Normal [facility] Comment on above: Performed By: #### T 7, URIC, TSH, CMP, LIPID #### [facility] [address] [place] [address] Dr. Ayush Sorto AST [Catalytic activity/Vol] 26 U/L Normal 15-37 [facility] Comment on above: Performed By: #### T 7, URIC, TSH, CMP, LIPID #### [facility] [address] [place] [address] Dr. Ayush Sorto Bilirubin [Mass/Vol] 1.0 mg/dL Normal 0.2-1.0 [facility] Comment on above: Performed By: #### T 7, URIC, TSH, CMP, LIPID #### [facility] [address] [place] [address] Dr. Ayush Sorto Calcium [Mass/Vol] 9.5 mg/dL Normal 8.5-10.1 [facility] Comment on above: Performed By: #### T 7, URIC, TSH, CMP, LIPID #### [facility] [address] [place] [address] Dr. Ayush Sorot Chloride [Moles/Vol] 105 mmol/L Normal 98-107 [facility] Comment on above: Performed By: #### T 7, URIC, TSH, CMP, LIPID #### [facility] [address] [address] [address] Ayush Sorto CO2 [Moles/Vol] 27.7 mmol/L Normal 21.0-32.0 [facility] Comment on above: Performed By: #### T 7, URIC, TSH, CMP, LIPID #### [facility] [address] [place] [address] Dr. Ayush Sorto Creatinine [Mass/Vol] 0.90 mg/dL Normal 0.70-1.30 [facility] Comment on above: Performed By: #### T 7, URIC, TSH, CMP, LIPID #### [facility] [address] [place] [address] Dr. Ayush Sorto EGFR-AF MONTENEGRIN >60 Normal >=60 [facility] Comment on above: Performed By: #### T 7, URIC, TSH, CMP, LIPID #### [facility] [address] [place] [address] Dr. Ayush Sorto EGFR-NON AF MONTENEGRIN >60 Normal >=60 [facility] Comment on above: Performed By: #### T 7, URIC, TSH, CMP, LIPID #### [facility] [address] [place] [address] Dr. Ayush Sorto Globulin (S) [Mass/Vol] 3.3 g/dL Normal [facility] Comment on above: Performed By: #### T 7, URIC, TSH, CMP, LIPID #### [facility] [address] [place] [address] Dr. Ayush Sorto Glucose [Mass/Vol] 105 mg/dL Normal 74-106 [facility] Comment on above: Performed By: #### T 7, URIC, TSH, CMP, LIPID #### [facility] [address] [place] [address] Dr. Ayush Sorto Potassium [Moles/Vol] 4.7 mmol/L Normal 3.5-5.1 [facility] Comment on above: Performed By: #### T 7, URIC, TSH, CMP, LIPID #### [facility] [address] [place] [address] Dr. Ayush Sorto Protein [Mass/Vol] 7.3 g/dL Normal 6.4-8.2 [facility] Comment on above: Performed By: #### T 7, URIC, TSH, CMP, LIPID #### [facility] [address] [address] [address] Ayush Sorto Sodium [Moles/Vol] 137 mmol/L Normal 136-145 [facility] Comment on above: Performed By: #### T 7, URIC, TSH, CMP, LIPID #### [facility] [address] [address] [address] Ayush Sorto Urea nitrogen [Mass/Vol] 19.0 mg/dL Critically high 7.0-18.0 [facility] Comment on above: Performed By: #### T 7, URIC, TSH, CMP, LIPID #### [facility] [address] [address] [address] Ayush Sorto Urea nitrogen/Creatinine [Mass ratio] 21.1 mg/mg Normal [facility] Comment on above: Performed By: #### T 7, URIC, TSH, CMP, LIPID #### [facility] [address] [address] [address] Ayush Sorto BASIC METABOLIC PANELon 10-2 Calcium mass conc 9.3 mg/dL Normal 8.6-10.3 [facility] Comment on above: Order Comment: No: D o not add to previous draw Performed By: #### 0 [id number], [id number], [id number] ####[facility] [place] [address], [facility] Chloride molar conc 102 mmol/L Normal 98-107 [facility] Comment on above: Order Comment: No: D o not add to previous draw Performed By: #### 0 [id number], [id number], [id number] ####[facility] [place] [address], [facility] CO2 molar conc 27 mmol/L Normal 21-31 [facility] Comment on above: Order Comment: No: D o not add to previous draw Performed By: #### 0 0121, [id number], [id number] ####[facility] [place] [address], [facility] Creatinine mass conc 0.73 mg/dL Normal 0.70-1.30 [facility] Comment on above: Order Comment: No: D o not add to previous draw Performed By: #### 0 0121, [id number], [id number] ####[facility] [place] [address], [facility] GFR/1.73 sq M predicted among blacks MDRD vol rate/area (S/P/Bld) mL/min/{1.73_m2} Normal >60 [facility] Comment on above: Order Comment: No: D o not add to previous draw Performed By: #### 0 0121, 73890, 88277 ####[facility] [address], [facility] GFR/1.73 sq M predicted among non-blacks MDRD vol rate/area (S/P/Bld) mL/min/{1.73_m2} Normal >60 [facility] Comment on above: Order Comment: No: D o not add to previous draw Performed By: #### 0 0121, 98385, 07602 ####[facility] [address], [facility] Glucose mass conc 109 mg/dL High 70-100 [facility] Comment on above: Order Comment: No: D o not add to previous draw Performed By: #### 0 0121, 44490, 96561 ####[facility] [address], [facility] Potassium molar conc 4.1 mmol/L Normal 3.5-5.1 [facility] Comment on above: Order Comment: No: D o not add to previous draw Performed By: #### 0 0121, 62847, 03813 ####[facility] [address], [place] Sodium molar conc 136 mmol/L Normal 136-145 [facility] Comment on above: Order Comment: No: D o not add to previous draw Performed By: #### 0 0121, 46123, 54516 ####[facility] Urea nitrogen mass conc 10 mg/dL Normal 7-25 [facility] Comment on above: Order Comment: No: D o not add to previous draw Performed By: #### 0 0121, 39826, 25414 ####[facility] CBC COMPLETE BLOOD COUNTon Erythrocyte distribution width Auto Ratio (RBC) 12.8 % Normal 11.5-15.0 [facility] Comment on above: Order Comment: No: D o not add to previous draw Performed By: #### 0 0121, 76409, 74683 ####[facility] Hematocrit Auto Volume Fraction (Bld) 45.7 % Normal 39.0-50.0 [facility] Comment on above: Order Comment: No: D o not add to previous draw Performed By: #### 0 0121, 64996, 55314 ####[facility] Hemoglobin mass conc (Bld) 15.6 g/dL Normal 13.0-17.0 [facility] Comment on above: Order Comment: No: D o not add to previous draw Performed By: #### 0 0121, 67756, 93076 ####[facility] MCH Auto Entitic mass (RBC) 30.4 pg Normal 27.0-33.0 [facility] Comment on above: Order Comment: No: D o not add to previous draw Performed By: #### 0 0121, 78079, 92685 ####[facility] MCHC Auto mass conc (RBC) 34.1 g/dL Normal 32.0-35.0 [facility] Comment on above: Order Comment: No: D o not add to previous draw Performed By: #### 0 0121, 80841, 71372 ####[facility] MCV Auto Entitic volume (RBC) 89.1 fL Normal 82.0-98.0 [facility] Comment on above: Order Comment: No: D o not add to previous draw Performed By: #### 0 0121, 08911, 28418 ####[facility] [facility].[address] Nucleated RBC/100 WBC Ratio (Bld) 0 % Normal 0-0 [facility] Comment on above: Order Comment: No: D o not add to previous draw Performed By: #### 0 0121, 58584, 79824 ####[facility].[address] PLAT CNT 218 10*3/uL Normal 150-400 [facility] Comment on above: Order Comment: No: D o not add to previous draw Performed By: #### 0 0121, 69324, 76852 ####[facility].[address] RBC Auto #/vol (Bld) 5.13 10*6/uL Normal 4.20-5.70 [facility] Comment on above: Order Comment: No: D o not add to previous draw Performed By: #### 0 0121, 87458, 89623 ####[facility] [facility] [place] [address], [facility] WBC Auto #/vol (Bld) 6.96 10*3/uL Normal 4.00-10.60 [facility] Comment on above: Order Comment: No: D o not add to previous draw Performed By: #### 0 0121, 17095, 05419 ####[facility] Cardiovascular Lab Reporton 09-14-2018 Cardiovascular Lab Report [facility] MR #: [id number] Physician: Lizette Montano M.D.Medicine Service Date: 09/13/2018Division of Birthdate: 1960Cardiology Room #: 3CD [id number] CardiovascularServicesUnivers[facility] CenterBvfqviiDkhbky[address] [place], [place] [address]Zpwlj Fax Cardiovascular Laboratory ReportPROCEDURE: Transesophageal echocardiogram and cardioversion.INDICATION: Atrial fibrillation.FELLOW: Tanya Botello M.D.PROCEDURE IN DETAIL: An informed consent was obtained from the patientafter explaining indications, risks, and benefits, and alternatives. Thepatient understood and agreed and signed the consent form. The patient wasbrought to the biological lab technician and MOJGAN was performed under conscious sedation. Thepatient obtained a total of 10 mg of Versed and 100 mcg of fentanyl duringthe procedure. The transesophageal echocardiogram did not show anythrombus in the left atrial appendage. Full MOJGAN report is [facility]. After the transesophageal echocardiogram, synchronized biphasiccardioversion was done with 300 joules of energy. The patient successfullyconverted to sinus rhythm as evidenced by the EKG done postprocedure. Nocomplications throughout the procedure.Electronically Signed by:Lizette Haines M.D. 09/19/2018 08:34 P Lizette Haines M.D. I was present for the entire procedure. Date Dict: 09/13/2018/11:49 A/Al Brownlee Trans: 09/14/2018 06:55 A/Marguerite_JN:[id number]: Kacy Jacobson M.D. [address] [place] [address] Yury Funez M.D. [address] [facility] [address] [address] Normal [facility] APTTon 09-13-2018 aPTT Coag time (Bld) 86.4 s Critically high 25.0-35.0 [facility] Comment on above: Order Comment: No: D o not add to previous draw Result Comment: ALL RESULTS MUST BE INTERPRETED WITH RESPECT TO BLOOD DRAWING ARTIFACTOR DILUTION ERROR OF ANTICOAGULANT AT THE TIME OF SAMPLING.THE APTT SHOULD NOT BE USED TO MONITOR UNFRACTIONATED HEPARIN THERAPY, THIS LABORATORY NO LONGER HAS AN ESTABLISHED THERAPEUTIC RANGE BASEDON THE APTT. IT IS RECOMMENDED THAT THE UFH - HEPARIN ASSAY (ANTI-XAACTIVITY) BE USED FOR THIS PURPOSE.RESULT CALLED TO ADRIEL BALDWIN RN [id number] SIGNIFICANCE OF THE PTT RESULT IS QUESTIONABLE IN THE PRESENCEOF HEPARIN. Performed By: #### 0 0121, 88879, 66562 ####[facility] [facility].[address] aPTT Coag time (Bld) 41.4 s High 25.0-35.0 [facility] Comment on above: Result Comment: ALL RESULTS MUST BE INTERPRETED WITH RESPECT TO BLOOD DRAWING ARTIFACTOR DILUTION ERROR OF ANTICOAGULANT AT THE TIME OF SAMPLING.THE APTT SHOULD NOT BE USED TO MONITOR UNFRACTIONATED HEPARIN THERAPY, THIS LABORATORY NO LONGER HAS AN ESTABLISHED THERAPEUTIC RANGE BASEDON THE APTT. IT IS RECOMMENDED THAT THE UFH - HEPARIN ASSAY (ANTI-XAACTIVITY) BE USED FOR THIS PURPOSE. Performed By: #### 0 0121, 67080, 09320 ####[facility] [facility].[address] UFH HEPARIN ASSAYon 09-13-20 18 UNFRACTIONATED HEPARIN 0.64 IU/mL Normal 0.30-0.70 [facility] Comment on above: Result Comment: [place] roxaban and Apixaban will interfere with the anti Xa assay used tomonitor UFH and LMWH. Performed By: #### 0 0121, 59826, 98150 ####[facility] [facility].[address] UNFRACTIONATED HEPARIN 0.25 IU/mL Low 0.30-0.70 [facility] Comment on above: Result Comment: [place] roxaban and Apixaban will interfere with the anti Xa assay used tomonitor UFH and LMWH. Performed By: #### 0 0121, 53673, 95588 ####[facility].[address] BASIC METABOLIC PANELon 10-2 Calcium mass conc 8.6 mg/dL Normal 8.6-10.3 [facility] Comment on above: Order Comment: No: D o not add to previous draw Performed By: #### 0 0121, 41750, 36009 ####[place] [address] [facility].[address] Chloride molar conc 106 mmol/L Normal 98-107 [facility] Comment on above: Order Comment: No: D o not add to previous draw Performed By: #### 0 0121, 22761, 53324 ####[place] [address] [facility].[address] CO2 molar conc 25 mmol/L Normal 21-31 [facility] Comment on above: Order Comment: No: D o not add to previous draw Performed By: #### 0 0121, 61400, 71379 ####[place] [address] [facility].[address] Creatinine mass conc 0.64 mg/dL Low 0.70-1.30 [facility] Comment on above: Order Comment: No: D o not add to previous draw Performed By: #### 0 0121, 25855, 83879 ####[place] [address] [facility].[address] GFR/1.73 sq M predicted among blacks MDRD vol rate/area (S/P/Bld) mL/min/{1.73_m2} Normal >60 [facility] Comment on above: Order Comment: No: D o not add to previous draw Performed By: #### 0 0121, 10144, 54360 ####[facility] [address], [facility] GFR/1.73 sq M predicted among non-blacks MDRD vol rate/area (S/P/Bld) mL/min/{1.73_m2} Normal >60 [facility] Comment on above: Order Comment: No: D o not add to previous draw Performed By: #### 0 0121, 57162, 51613 ####[facility] [address], [facility] Glucose mass conc 100 mg/dL Normal 70-100 [facility] Comment on above: Order Comment: No: D o not add to previous draw Performed By: #### 0 0121, 91598, 00509 ####[facility] [address], [facility] Potassium molar conc 4.0 mmol/L Normal 3.5-5.1 [facility] Comment on above: Order Comment: No: D o not add to previous draw Performed By: #### 0 0121, 07346, 49041 ####[facility] [address], [facility] Sodium molar conc 137 mmol/L Normal 136-145 [facility] Comment on above: Order Comment: No: D o not add to previous draw Performed By: #### 0 0121, 70382, 37243 ####[facility] [address], [facility] Urea nitrogen mass conc 14 mg/dL Normal 7-25 [facility] Comment on above: Order Comment: No: D o not add to previous draw Performed By: #### 0 0121, 92713, 06078 ####[facility] [address], [facility] CBC W/DIFFon 09-12-2018 ABS BASOPHILS 0.0 10*3/uL Normal 0.0-0.2 [facility] Comment on above: Order Comment: No: D o not add to previous draw Performed By: #### 0 0121, 45839, 99556 ####[facility].[address] ABS IMM GRANS 0.0 10*3/uL Normal 0.0-0.2 [facility] Comment on above: Order Comment: No: D o not add to previous draw Performed By: #### 0 0121, 85445, 61690 ####[facility] ABS NEUTROPHILS 3.1 10*3/uL Normal 1.6-7.6 [facility] Comment on above: Order Comment: No: D o not add to previous draw Performed By: #### 0 0121, , 89902 ####[facility] Basophils Auto #/vol (Bld) 0.7 % Normal 0.0-1.0 [facility] Comment on above: Order Comment: No: D o not add to previous draw Performed By: #### 0 0121, 72286, 45209 ####[facility] Eosinophils Auto #/vol (Bld) 0.2 10*3/uL Normal 0.0-0.5 [facility] Comment on above: Order Comment: No: D o not add to previous draw Performed By: #### 0 0121, 58353, 36732 ####[facility].[address] Eosinophils/100 WBC Auto (Bld) 3.6 % Normal 0.0-6.0 [facility] Comment on above: Order Comment: No: D o not add to previous draw Performed By: #### 0 0121, 08075, 49179 ####[facility].[address] Erythrocyte distribution width Auto Ratio (RBC) 12.7 % Normal 11.5-15.0 [facility] Comment on above: Order Comment: No: D o not add to previous draw Performed By: #### 0 0121, 14973, 93092 ####[facility] [facility] Hematocrit Auto Volume Fraction (Bld) 45.5 % Normal 39.0-50.0 [facility] Comment on above: Order Comment: No: D o not add to previous draw Performed By: #### 0 0121, 86816, 64494 ####[facility].[address] Hemoglobin mass conc (Bld) 15.2 g/dL Normal 13.0-17.0 [facility] Comment on above: Order Comment: No: D o not add to previous draw Performed By: #### 0 0121, , 00549 ####[facility].[address] IMMATURE GRANS 0.4 % Normal 0.0-1.0 [facility] Comment on above: Order Comment: No: D o not add to previous draw Performed By: #### 0 0121, , 63594 ####[facility].[address] Lymphocytes Auto #/vol (Bld) 1.5 10*3/uL Normal 1.2-4.0 [facility] Comment on above: Order Comment: No: D o not add to previous draw Performed By: #### 0 0121, 42535, 80226 ####[facility] Lymphocytes/100 WBC Auto (Bld) 27.8 % Normal 20.0-45.0 [facility] Comment on above: Order Comment: No: D o not add to previous draw Performed By: #### 0 0121, 10153, 30398 ####[facility].[address] MCH Auto Entitic mass (RBC) 30.0 pg Normal 27.0-33.0 [facility] Comment on above: Order Comment: No: D o not add to previous draw Performed By: #### 0 0121, 20088, 91536 ####[facility] MCHC Auto mass conc (RBC) 33.4 g/dL Normal 32.0-35.0 [facility] Comment on above: Order Comment: No: D o not add to previous draw Performed By: #### 0 0121, 76304, 14045 ####[facility] MCV Auto Entitic volume (RBC) 89.9 fL Normal 82.0-98.0 [facility] Comment on above: Order Comment: No: D o not add to previous draw Performed By: #### 0 0121, 56305, 34950 ####[facility] Monocytes Auto #/vol (Bld) 0.6 10*3/uL Normal 0.1-1.0 [facility] Comment on above: Order Comment: No: D o not add to previous draw Performed By: #### 0 0121, 45326, 03149 ####[facility].[address] MONOS 11.4 % Normal 5.0-12.0 [facility] Comment on above: Order Comment: No: D o not add to previous draw Performed By: #### 0 0121, 05848, 34573 ####[facility] Neutrophils/100 WBC Auto (Bld) 56.1 % Normal 40.0-72.0 [facility] Comment on above: Order Comment: No: D o not add to previous draw Performed By: #### 0 0121, 57987, 73600 ####[facility].[address] Nucleated RBC/100 WBC Ratio (Bld) 0 % Normal 0-0 [facility] Comment on above: Order Comment: No: D o not add to previous draw Performed By: #### 0 0121, 09018, 03277 ####[facility] [place] [address], [facility] PLAT CNT 188 10*3/uL Normal 150-400 [facility] Comment on above: Order Comment: No: D o not add to previous draw Performed By: #### 0 0121, 32784, 99306 ####[facility].[address] RBC Auto #/vol (Bld) 5.06 10*6/uL Normal 4.20-5.70 [facility] Comment on above: Order Comment: No: D o not add to previous draw Performed By: #### 0 0121, 32490, 50993 ####[facility].[address] WBC Auto #/vol (Bld) 5.54 10*3/uL Normal 4.00-10.60 [facility] Comment on above: Order Comment: No: D o not add to previous draw Performed By: #### 0 0121, 72827, 88218 ####[facility] [place] [address], [facility] MAGNESIUM BLOODon 09-12-2018 Magnesium mass conc 1.9 mg/dL Normal 1.9-2.7 [facility] Comment on above: Order Comment: No: D o not add to previous draw Performed By: #### 0 0121, 46991, 56068 ####[facility] UFH HEPARIN ASSAYon 09-12-20 UNFRACTIONATED HEPARIN 0.26 IU/mL Low 0.30-0.70 [facility] Comment on above: Result Comment: [place] roxaban and Apixaban will interfere with the anti Xa assay used tomonitor UFH and LMWH. Performed By: #### 0 0121, 01462, 85776 ####[facility] UNFRACTIONATED HEPARIN 0.72 IU/mL High 0.30-0.70 [facility] Comment on above: Result Comment: [place] roxaban and Apixaban will interfere with the anti Xa assay used tomonitor UFH and LMWH. Performed By: #### 0 0121, 26399, 61952 ####[facility] UNFRACTIONATED HEPARIN 0.49 IU/mL Normal 0.30-0.70 [facility] Comment on above: Result Comment: [place] roxaban and Apixaban will interfere with the anti Xa assay used tomonitor UFH and LMWH. Performed By: #### 0 0121, 70348, 45939 ####[facility] APTTon 09-11-2018 aPTT Coag time (Bld) 101.0 s Critically high 25.0-35.0 [facility] Comment on above: Order Comment: No: D o not add to previous draw Result Comment: ALL RESULTS MUST BE INTERPRETED WITH RESPECT TO BLOOD DRAWING ARTIFACTOR DILUTION ERROR OF ANTICOAGULANT AT THE TIME OF SAMPLING.THE APTT SHOULD NOT BE USED TO MONITOR UNFRACTIONATED HEPARIN THERAPY, THIS LABORATORY NO LONGER HAS AN ESTABLISHED THERAPEUTIC RANGE BASEDON THE APTT. IT IS RECOMMENDED THAT THE UFH - HEPARIN ASSAY (ANTI-XAACTIVITY) BE USED FOR THIS PURPOSE.CLINICAL SIGNIFICANCE OF THE PTT RESULT IS QUESTIONABLE IN THE PRESENCEOF HEPARIN.RESULTS CHECKED AND CALLED. ACCURATELY READ BACK BY AUBRIE HINOJOSA RNAT 615 Performed By: #### 0 0121, 61010, 25738 ####[facility] [address], [facility] BASIC METABOLIC PANELon 10-2 Calcium mass conc 8.9 mg/dL Normal 8.6-10.3 [facility] Comment on above: Order Comment: No: D o not add to previous draw Performed By: #### 0 0121, 77384, 64229 ####[facility] [address], [facility] Chloride molar conc 106 mmol/L Normal 98-107 [facility] Comment on above: Order Comment: No: D o not add to previous draw Performed By: #### 0 0121, 36659, 55838 ####[facility] [address], [facility] CO2 molar conc 25 mmol/L Normal 21-31 [facility] Comment on above: Order Comment: No: D o not add to previous draw Performed By: #### 0 0121, 82399, 21980 ####[facility] [address], [facility] Creatinine mass conc 0.84 mg/dL Normal 0.70-1.30 [facility] Comment on above: Order Comment: No: D o not add to previous draw Performed By: #### 0 0121, 72307, 32267 ####[facility] [address], [place] GFR/1.73 sq M predicted among blacks MDRD vol rate/area (S/P/Bld) mL/min/{1.73_m2} Normal >60 [facility] Comment on above: Order Comment: No: D o not add to previous draw Performed By: #### 0 0121, 42739, 36285 ####[facility] GFR/1.73 sq M predicted among non-blacks MDRD vol rate/area (S/P/Bld) mL/min/{1.73_m2} Normal >60 [facility] Comment on above: Order Comment: No: D o not add to previous draw Performed By: #### 0 0121, 21581, 75512 ####[facility] [address], [facility] Glucose mass conc 103 mg/dL High 70-100 [facility] Comment on above: Order Comment: No: D o not add to previous draw Performed By: #### 0 0121, 80495, 51615 ####[facility].[address] Potassium molar conc 4.0 mmol/L Normal 3.5-5.1 [facility] Comment on above: Order Comment: No: D o not add to previous draw Performed By: #### 0 0121, 68226, 44516 ####[facility] Sodium molar conc 138 mmol/L Normal 136-145 [facility] Comment on above: Order Comment: No: D o not add to previous draw Performed By: #### 0 0121, 32077, 39621 ####[facility].[address] Urea nitrogen mass conc 20 mg/dL Normal 7-25 [facility] Comment on above: Order Comment: No: D o not add to previous draw Performed By: #### 0 0121, 93631, 03928 ####[facility] [place] [address], [facility] CBC W/DIFFon 09-11-2018 ABS BASOPHILS 0.0 10*3/uL Normal 0.0-0.2 [facility] Comment on above: Order Comment: No: D o not add to previous draw Performed By: #### 5 0103 ####[facility] [address] ABS IMM GRANS 0.0 10*3/uL Normal 0.0-0.2 [facility] Comment on above: Order Comment: No: D o not add to previous draw Performed By: #### 5 0103 ####[facility] [place] [address], [facility] ABS NEUTROPHILS 3.1 10*3/uL Normal 1.6-7.6 [facility] Comment on above: Order Comment: No: D o not add to previous draw Performed By: #### 5 3 ####[facility] [address] Basophils Auto #/vol (Bld) 0.8 % Normal 0.0-1.0 [facility] Comment on above: Order Comment: No: D o not add to previous draw Performed By: #### 5 3 ####[facility] [address] Eosinophils Auto #/vol (Bld) 0.2 10*3/uL Normal 0.0-0.5 [facility] Comment on above: Order Comment: No: D o not add to previous draw Performed By: #### 3 ####[facility] [address] Eosinophils/100 WBC Auto (Bld) 3.5 % Normal 0.0-6.0 [facility] Comment on above: Order Comment: No: D o not add to previous draw Performed By: #### 5 0103 ####[facility] [address] Erythrocyte distribution width Auto Ratio (RBC) 12.8 % Normal 11.5-15.0 [facility] Comment on above: Order Comment: No: D o not add to previous draw Performed By: #### 5 3 ####[facility].[address] Hematocrit Auto Volume Fraction (Bld) 45.3 % Normal 39.0-50.0 [facility] Comment on above: Order Comment: No: D o not add to previous draw Performed By: #### 5 0103 ####[facility] Hemoglobin mass conc (Bld) 15.3 g/dL Normal 13.0-17.0 [facility] Comment on above: Order Comment: No: D o not add to previous draw Performed By: #### 5 0103 ####[facility].[address] IMMATURE GRANS 0.4 % Normal 0.0-1.0 [facility] Comment on above: Order Comment: No: D o not add to previous draw Performed By: #### 5 0103 ####[facility].[address] Lymphocytes Auto #/vol (Bld) 1.4 10*3/uL Normal 1.2-4.0 [facility] Comment on above: Order Comment: No: D o not add to previous draw Performed By: #### 5 0103 ####[facility].[address] Lymphocytes/100 WBC Auto (Bld) 25.9 % Normal 20.0-45.0 [facility] Comment on above: Order Comment: No: D o not add to previous draw Performed By: #### 5 0103 ####[facility] [place] [address], [facility] MCH Auto Entitic mass (RBC) 30.5 pg Normal 27.0-33.0 [facility] Comment on above: Order Comment: No: D o not add to previous draw Performed By: #### 5 0103 ####[facility].[address] MCHC Auto mass conc (RBC) 33.8 g/dL Normal 32.0-35.0 [facility] Comment on above: Order Comment: No: D o not add to previous draw Performed By: #### 5 0103 ####[facility].[address] MCV Auto Entitic volume (RBC) 90.2 fL Normal 82.0-98.0 [facility] Comment on above: Order Comment: No: D o not add to previous draw Performed By: #### 5 3 ####[place] [id number] [facility].[address] Monocytes Auto #/vol (Bld) 0.5 10*3/uL Normal 0.1-1.0 [facility] Comment on above: Order Comment: No: D o not add to previous draw Performed By: #### 5 0103 ####[facility].[address] MONOS 10.2 % Normal 5.0-12.0 [facility] Comment on above: Order Comment: No: D o not add to previous draw Performed By: #### 5 3 ####[address] Neutrophils/100 WBC Auto (Bld) 59.2 % Normal 40.0-72.0 [facility] Comment on above: Order Comment: No: D o not add to previous draw Performed By: #### 5 3 ####[facility].[address] Nucleated RBC/100 WBC Ratio (Bld) 0 % Normal 0-0 [facility] Comment on above: Order Comment: No: D o not add to previous draw Performed By: #### 5 3 ####[facility] PLAT CNT 226 10*3/uL Normal 150-400 [facility] Comment on above: Order Comment: No: D o not add to previous draw Performed By: #### 5 0103 ####[facility] [place] [place].[address] RBC Auto #/vol (Bld) 5.02 10*6/uL Normal 4.20-5.70 [facility] Comment on above: Order Comment: No: D o not add to previous draw Performed By: #### 5 0103 ####[facility].[address] WBC Auto #/vol (Bld) 5.21 10*3/uL Normal 4.00-10.60 [facility] Comment on above: Order Comment: No: D o not add to previous draw Performed By: #### 5 0103 ####[facility] [place] [facility].[address] MAGNESIUM BLOODon 09-11-2018 Magnesium mass conc 1.8 mg/dL Low 1.9-2.7 [facility] Comment on above: Order Comment: No: D o not add to previous draw Performed By: #### 0 0121, 02804, 20533 ####[facility] [place] [facility].[address] PHOSPHORUS BLOODon 8 Phosphate mass conc 3.0 mg/dL Normal 2.5-5.0 [facility] Comment on above: Order Comment: No: D o not add to previous draw Performed By: #### 0 0121, 72616, 41316 ####[facility] PROTHROMBIN TIMEon 8 INR Coag RelTime (PPP) 1.01 {INR} Normal 0.91-1.16 [facility] Comment on above: Order Comment: No: D o not add to previous draw Result Comment: ACCC P RECOMMENDED INR FOR WARFARIN THERAPY CONDITION INRPROPHYLAXIS OF VENOUS THROMBOSIS 2-3(HIGH-RISK SURGERY)TREATMENT OF VENOUS THROMBOSIS 2-3TREATMENT OF PULMONARY EMBOLISM 2-3PREVENTION OF SYSTEMIC EMBOLISM: 2-3 ACUTE MYOCARDIAL INFARCTION TISSUE HEART VALVES VALVULAR HEART DISEASE ATRIAL FIBRILLATION RECURRENT SYSTEMIC EMBOLISMMECHANICAL HEART VALVE 2.5-3.5 FROM: ORAL ANTICOAGULANTS. MECHANISM OF ACTION, CLINICALEFFECTIVENESS, AND OPTIMAL THERAPEUTIC RANGE. [id number];108:231S-246S. Performed By: #### 0 0121, 48697, 79776 ####[facility] [place] [address], [facility] Prothrombin time (PT) Coag time (PPP) 13.3 s Normal 12.3-14.8 [facility] Comment on above: Order Comment: No: D o not add to previous draw Result Comment: ALL RESULTS MUST BE INTERPRETED WITH RESPECT TO BLOOD DRAWING ARTIFACTOR DILUTION ERROR OF ANTICOAGULANT AT THE TIME OF SAMPLING. Performed By: #### 0 0121, 08255, 07417 ####[facility] [place] [address], [facility] TROPONIN-Ion 09-11-2018 Troponin I.cardiac mass conc 0.00 ng/mL Normal 0.00-0.04 [facility] Comment on above: Order Comment: No: D o not add to previous draw Result Comment: REFE RENCE RANGES: 0.00 - 0.14 ng/ml NEGATIVE 0.15 - 0.25 ng/ml INDETERMINATE > 0.25 ng/ml INDICATIVE OF AN M.I. Performed By: #### 3 9910 ####[facility] [place] [address], [facility] UFH HEPARIN ASSAYon 09-11-20 18 UNFRACTIONATED HEPARIN 0.40 IU/mL Normal 0.30-0.70 [facility] Comment on above: Result Comment: [place] roxaban and Apixaban will interfere with the anti Xa assay used tomonitor UFH and LMWH. Performed By: #### 0 0121, 90582, 52448 ####[facility] UNFRACTIONATED HEPARIN 0.39 IU/mL Normal 0.30-0.70 [facility] Comment on above: Result Comment: Lisa roxaban and Apixaban will interfere with the anti Xa assay used tomonitor UFH and LMWH. Performed By: #### 0 0121, 13743, 86441 ####[facility] UNFRACTIONATED HEPARIN 0.70 IU/mL Normal 0.30-0.70 [facility] Comment on above: Result Comment: [place] roxaban and Apixaban will interfere with the anti Xa assay used tomonitor UFH and LMWH. Performed By: #### 0 0121, 69475, 26289 ####[facility] UNFRACTIONATED HEPARIN 0.49 IU/mL Normal 0.30-0.70 [facility] Comment on above: Result Comment: Lisa roxaban and Apixaban will interfere with the anti Xa assay used tomonitor UFH and LMWH. Performed By: #### 3 0477 ####[facility] APTTon 09-10-2018 aPTT Coag time (Bld) 26.2 s Normal 25.0-35.0 [facility] Comment on above: Result Comment: ALL RESULTS MUST BE INTERPRETED WITH RESPECT TO BLOOD DRAWING ARTIFACTOR DILUTION ERROR OF ANTICOAGULANT AT THE TIME OF SAMPLING.THE APTT SHOULD NOT BE USED TO MONITOR UNFRACTIONATED HEPARIN THERAPY, THIS LABORATORY NO LONGER HAS AN ESTABLISHED THERAPEUTIC RANGE BASEDON THE APTT. IT IS RECOMMENDED THAT THE UFH - HEPARIN ASSAY (ANTI-XAACTIVITY) BE USED FOR THIS PURPOSE. Performed By: #### 5 6101, 31375 ####[facility].[address] CBC W/DIFFon 09-10-2018 ABS BASOPHILS 0.0 10*3/uL Normal 0.0-0.2 [facility] Comment on above: Order Comment: No: D o not add to previous draw Performed By: #### 5 0103 ####[address] ABS IMM GRANS 0.0 10*3/uL Normal 0.0-0.2 [facility] Comment on above: Order Comment: No: D o not add to previous draw Performed By: #### 5 0103 ####[facility].[address] ABS NEUTROPHILS 6.0 10*3/uL Normal 1.6-7.6 [facility] Comment on above: Order Comment: No: D o not add to previous draw Performed By: #### 5 0103 ####[place] [address] [facility].[address] Basophils Auto #/vol (Bld) 0.4 % Normal 0.0-1.0 [facility] Comment on above: Order Comment: No: D o not add to previous draw Performed By: #### 5 0103 ####[address] Eosinophils Auto #/vol (Bld) 0.1 10*3/uL Normal 0.0-0.5 [facility] Comment on above: Order Comment: No: D o not add to previous draw Performed By: #### 5 0103 ####[address] Eosinophils/100 WBC Auto (Bld) 1.1 % Normal 0.0-6.0 [facility] Comment on above: Order Comment: No: D o not add to previous draw Performed By: #### 5 0103 ####[facility].[address] Erythrocyte distribution width Auto Ratio (RBC) 12.5 % Normal 11.5-15.0 [facility] Comment on above: Order Comment: No: D o not add to previous draw Performed By: #### 5 0103 ####[facility].[address] Hematocrit Auto Volume Fraction (Bld) 48.8 % Normal 39.0-50.0 [facility] Comment on above: Order Comment: No: D o not add to previous draw Performed By: #### 5 0103 ####[facility].[address] Hemoglobin mass conc (Bld) 16.6 g/dL Normal 13.0-17.0 [facility] Comment on above: Order Comment: No: D o not add to previous draw Performed By: #### 5 0103 ####[facility] IMMATURE GRANS 0.3 % Normal 0.0-1.0 [facility] Comment on above: Order Comment: No: D o not add to previous draw Performed By: #### 5 0103 ####[facility].[address] Lymphocytes Auto #/vol (Bld) 1.2 10*3/uL Normal 1.2-4.0 [facility] Comment on above: Order Comment: No: D o not add to previous draw Performed By: #### 5 0103 ####[facility] Lymphocytes/100 WBC Auto (Bld) 14.7 % Low 20.0-45.0 [facility] Comment on above: Order Comment: No: D o not add to previous draw Performed By: #### 5 0103 ####[facility] MCH Auto Entitic mass (RBC) 30.3 pg Normal 27.0-33.0 [facility] Comment on above: Order Comment: No: D o not add to previous draw Performed By: #### 5 3 ####[facility] [address] MCHC Auto mass conc (RBC) 34.0 g/dL Normal 32.0-35.0 [facility] Comment on above: Order Comment: No: D o not add to previous draw Performed By: #### 5 3 ####[facility] [address] MCV Auto Entitic volume (RBC) 89.2 fL Normal 82.0-98.0 [facility] Comment on above: Order Comment: No: D o not add to previous draw Performed By: #### 5 102 ####[facility] [address] Monocytes Auto #/vol (Bld) 0.6 10*3/uL Normal 0.1-1.0 [facility] Comment on above: Order Comment: No: D o not add to previous draw Performed By: #### 5 3 ####[facility] [address] MONOS 7.9 % Normal 5.0-12.0 [facility] Comment on above: Order Comment: No: D o not add to previous draw Performed By: #### 5 3 ####[facility] [address] Neutrophils/100 WBC Auto (Bld) 75.6 % High 40.0-72.0 [facility] Comment on above: Order Comment: No: D o not add to previous draw Performed By: #### 5 0103 ####[facility] [address], [facility] Nucleated RBC/100 WBC Ratio (Bld) 0 % Normal 0-0 [facility] Comment on above: Order Comment: No: D o not add to previous draw Performed By: #### 5 0103 ####[facility] [address], [facility] PLAT CNT 243 10*3/uL Normal 150-400 [facility] Comment on above: Order Comment: No: D o not add to previous draw Performed By: #### 5 0103 ####[facility] [address], [facility] RBC Auto #/vol (Bld) 5.47 10*6/uL Normal 4.20-5.70 [facility] Comment on above: Order Comment: No: D o not add to previous draw Performed By: #### 5 0103 ####[facility] [address], [facility] WBC Auto #/vol (Bld) 7.87 10*3/uL Normal 4.00-10.60 [facility] Comment on above: Order Comment: No: D o not add to previous draw Performed By: #### 5 0103 ####[facility] [address], [facility] COMP METABOLIC PANELon 09-10 Albumin mass conc 4.0 g/dL Normal 3.5-5.7 [facility] Comment on above: Order Comment: No: D o not add to previous draw Performed By: #### 0 0121, 33629, 81117 ####[facility] [id number], [facility] ALKALINE PHOSPH 59 IU/L Normal 34-104 [facility] Comment on above: Order Comment: No: D o not add to previous draw Performed By: #### 0 0121, 88110, 58485 ####[facility] [address], [place] ALT enzyme act/vol 22 U/L Normal 7-52 [facility] Comment on above: Order Comment: No: D o not add to previous draw Performed By: #### 0 0121, 65572, 48118 ####[facility] [address], [place] AST enzyme act/vol 20 U/L Normal 13-39 [facility] Comment on above: Order Comment: No: D o not add to previous draw Performed By: #### 0 0121, 61168, 58681 ####[facility] [place] [address], [facility] Bilirubin mass conc 0.8 mg/dL Normal 0.3-1.0 [facility] Comment on above: Order Comment: No: D o not add to previous draw Performed By: #### 0 0121, 65493, 70059 ####[facility] [address], [place] Calcium mass conc 8.8 mg/dL Normal 8.6-10.3 [facility] Comment on above: Order Comment: No: D o not add to previous draw Performed By: #### 0 0121, 25119, 85675 ####[facility] [address], [place] Chloride molar conc 103 mmol/L Normal 98-107 [facility] Comment on above: Order Comment: No: D o not add to previous draw Performed By: #### 0 0121, 62522, 90966 ####[facility] [address], [place] CO2 molar conc 28 mmol/L Normal 21-31 [facility] Comment on above: Order Comment: No: D o not add to previous draw Performed By: #### 0 0121, 54029, 53885 ####[facility] [place] [address], [facility] Creatinine mass conc 0.93 mg/dL Normal 0.70-1.30 [facility] Comment on above: Order Comment: No: D o not add to previous draw Performed By: #### 0 0121, 99889, 54418 ####[facility] [place] [address], [facility] GFR/1.73 sq M predicted among blacks MDRD vol rate/area (S/P/Bld) mL/min/{1.73_m2} Normal >60 [facility] Comment on above: Order Comment: No: D o not add to previous draw Performed By: #### 0 0121, 29755, 11942 ####[facility] [place] [address], [facility] GFR/1.73 sq M predicted among non-blacks MDRD vol rate/area (S/P/Bld) mL/min/{1.73_m2} Normal >60 [facility] Comment on above: Order Comment: No: D o not add to previous draw Performed By: #### 0 0121, 99334, 89622 ####[facility] [place] [address], [facility] Glucose mass conc 94 mg/dL Normal 70-100 [facility] Comment on above: Order Comment: No: D o not add to previous draw Performed By: #### 0 0121, 98923, 89996 ####[facility] [place] [address], [facility] Potassium molar conc 4.0 mmol/L Normal 3.5-5.1 [facility] Comment on above: Order Comment: No: D o not add to previous draw Performed By: #### 0 0121, 67746, 39242 ####[facility] Protein mass conc 6.8 g/dL Normal 6.0-8.3 [facility] Comment on above: Order Comment: No: D o not add to previous draw Performed By: #### 0 0121, 34837, 84874 ####[facility].[address] Sodium molar conc 140 mmol/L Normal 136-145 [facility] Comment on above: Order Comment: No: D o not add to previous draw Performed By: #### 0 0121, 88098, 21302 ####[facility].[address] Urea nitrogen mass conc 19 mg/dL Normal 7-25 [facility] Comment on above: Order Comment: No: D o not add to previous draw Performed By: #### 0 0121, 02649, 48139 ####[facility].[address] PROTHROMBIN TIMEon 8 INR Coag RelTime (PPP) 0.93 {INR} Normal 0.91-1.16 [facility] Comment on above: Result Comment: ACC[facility] P RECOMMENDED INR FOR WARFARIN THERAPY CONDITION INRPROPHYLAXIS OF VENOUS THROMBOSIS 2-3(HIGH-RISK SURGERY)TREATMENT OF VENOUS THROMBOSIS 2-3TREATMENT OF PULMONARY EMBOLISM 2-3PREVENTION OF SYSTEMIC EMBOLISM: 2-3 ACUTE MYOCARDIAL INFARCTION TISSUE HEART VALVES VALVULAR HEART DISEASE ATRIAL FIBRILLATION RECURRENT SYSTEMIC EMBOLISMMECHANICAL HEART VALVE 2.5-3.5 FROM: ORAL ANTICOAGULANTS. MECHANISM OF ACTION, CLINICALEFFECTIVENESS, AND OPTIMAL THERAPEUTIC RANGE. [id number];108:231S-246S. Performed By: #### 5 6101, 38255 ####[facility].[address] Prothrombin time (PT) Coag time (PPP) 12.5 s Normal 12.3-14.8 [facility] Comment on above: Result Comment: ALL RESULTS MUST BE INTERPRETED WITH RESPECT TO BLOOD DRAWING ARTIFACTOR DILUTION ERROR OF ANTICOAGULANT AT THE TIME OF SAMPLING. Performed By: #### 5 6101, 29266 ####[facility].[address] TROPONIN-Ion 09-10-2018 Troponin I.cardiac mass conc 0.00 ng/mL Normal 0.00-0.04 [facility] Comment on above: Order Comment: No: D o not add to previous draw Result Comment: REFE RENCE RANGES: 0.00 - 0.14 ng/ml NEGATIVE 0.15 - 0.25 ng/ml INDETERMINATE > 0.25 ng/ml INDICATIVE OF AN M.I. Performed By: #### 3 5200 ####[facility].[address] Troponin I.cardiac mass conc 0.00 ng/mL Normal 0.00-0.04 [facility] Comment on above: Result Comment: REFE RENCE RANGES: 0.00 - 0.14 ng/ml NEGATIVE 0.15 - 0.25 ng/ml INDETERMINATE > 0.25 ng/ml INDICATIVE OF AN M.I. Performed By: #### [id number] ####[facility] [place] [address], [facility] TSH3on 09-10-2018 TSH 3RD GENERATION 1.05 uIU/mL Normal 0.34-5.60 [facility] Comment on above: Performed By: #### [id number], [id number] ####[facility] [address] Vital Signs Date Time Vital Sign Value Performing Clinician Shashank linn 10-01-2023 08:20-0500 Body height 193.04 cm Sher Nahid Other [facility] Other 10-01-2023 08:20-0500 Body mass index (BMI) [Ratio] 27.75 kg/m2 Sher Whitfield Other [facility] Other 10-01-2023 08:20-0500 Body weight 103.42 kg Sherjamie Whitfield Other [facility] Other 1960 23:00-0500 >na< Ellie Rodríguez Dept. of Dermato logy Encounters Encounter Date Encounter Type Care Provider Facility Start: 11-10-2023 End: 11-10-2023 ambulatory [facility] Start: 10-01-2023 Office outpatient ne w 30 minutes Sher Whitfield [facility] Neurosurgery Start: 10-01-2023 End: 10-01-2023 ambulatory Sher Whitfield Facility:[facility] Start: 10-01-2023 End: 10-01-2023 ambulatory MD Kacy Jacobson Work Phone: [facility] Work Phone: Start: 10-01-2023 End: 10-01-2023 Patient encounter procedure MD Kacy Jacobson Work Phone: [facility] Work Phone: Start: 04-01-2023 End: 04-01-2023 ambulatory KATHE [facility] Start: 03-24-2023 Luke Reinoso Dept. of Dermatology Start: 03-24-2023 ambulatory PCP UNKNOWN Facility:[id number] Start: 03-24-2023 Ellie Rodríguez Dept. of D ermatology Start: 03-24-2023 Postop follow up vis it related to original px Luke Reinoso Dept. of Dermatology Start: 03-18-2023 ambulatory PCP UNKNOWN Facility:[id number] Start: 03-02-2023 Ellie Rodríguez Dept. of D ermatology Start: 02-24-2023 ambulatory PCP UNKNOWN Facility:[id number] Start: 02-18-2023 End: 02-19-[address] KACY JACOBSON . Facility:[facility]1 Start: 01-26-2023 Encounter for genera l adult medical examination without abnormal findings DR KACY JACOBSON . [facility] Start: 01-22-2023 End: 01-23-[address] KACY JACOBSON . Facility:[facility] Start: 01-22-2023 End: 01-23-2023 Encounter for general adult medical examination without abnormal findings DR KACY JACOBSON . Facility:[facility] Start: 12-09-2022 End: 12-10-2022 ambulatory RENU HAROLDO Facility:[facility] Start: 10-27-2022 End: 10-28-2022 ambulatory RENU BERRIOSER Facility:[facility] Start: 10-08-2022 End: 10-09-2022 ambulatory RENU ZARCO Facility:[facility] Start: 09-24-2022 End: 09-25-2022 [facility] Start: 09-10-2022 End: 09-11-2022 ambulatory RENU HAROLDO Facility:[facility]1 Start: 09-13-2018 End: 09-14-2018 Patient encounter procedure DEFAULT PHYSICIAN Facility:[facility] Start: 09-10-2018 End: 09-14-2018 Evaluation and management of inpatient AVE LUEVANO Facility:[facility] Start: 08-25-2018 End: 08-26-2018 Patient encounter procedure DEFAULT PHYSICIAN Facility:[facility] Procedures Date Procedure Procedure Detail Performing Clinician Start: 10-01-2023 X-ray of lumbar spin e, six views including bending views MD Kacy Jacobson Work Phone: Start: 03-24-2023 Ellie arita Start: 03-18-2023 [facility] micrographic h/n/h/f/g 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 Ayush Sorto Start: 09-13-2018 [facility] of Cardi ac Rhythm, Single LIZETTE V MOUKARBEL Immunizations Immunization Date Immunization Notes Care Provider Fa cility 1960 pneumococcal conjuga te vaccine, 7 valent Ellie Rodríguez Dept. of Dermatology Payers Date Payer Category Payer Self-pay 2006 Private Health Insurance [id number] 1960 Unknown [id number] 1960 Unknown [id number] 2.16.8 [id number] 1960 Unknown [id number] 2.16.8 [id number] 1959 Unknown [id number] 2.16.8 40.1.132974.3.579.2.647 1959 Unknown [id number] 2.16.84 [id number] 1959 Unknown [id number] 2.16.84 0.1.488139.3.579.2.593 1959 Unknown [id number] 2.16.84 0.1.890493.3.579.2.593 1959 Unknown [id number] 2.16.84 0.1.583683.3.579.2.593 1959 Unknown [id number] 2.16.84 0.1.168488.3.579.2.593 1959 Unknown [id number] 2.16.84 0.1.594880.3.579.2.593 1959 Unknown [id number] 2.16.84 0.1.189250.3.579.2.593 1959 Unknown [id number] 2.16. [id number] 1959 Unknown [id number] 2.16. [id number] 1959 Unknown [id number] 2.16. [id number] Unknown Unknown [id number] 2.16.8 [id number] Social History Date Type Detail Facility Start: 03-02-2023 Dept. of D ermatology Start: 1960 End: 1960 Sex Assigned At Male [facility] Sex Assigned At Sex Assigned At Bir th [facility] Other Goals Date Patient Goal Desired Activity /State Clinical Notes 04-01-2023 to 11-10-2023 Note Date & Type Note Facility 11-10-2023 Note [facility] Electrophysiology Consult Note Reason for visit: afib 11/10/23 patient continues to be asymptomatic with no new issues. he is due for an echocardiogram but otherwise does not endorse any challenges with anticoagulation. blood pressure is slightly elevated today. HPI: Reece Hogue is a 63 y.o. year old with past medical history of htn, afib s/p DCCV which was initially successful with amiodarone on board but soon after reverted to af - slow VR with hx bradycardia. Per pulse check he is in afib. He continues to be asymptomatic and exercises regularly with no concerns for CP, SOB/BENITES. HE denies orthopnea, LE edema. He continues to xarelto with no concerns for bleeding or intolerance ---- -- Per Dr. Carranza 02/04/2022 CC: Afib HPI: 60-year-old male with a history of atrial fibrillation/ HTN and no other cardiac history was recently cardioverted by me at [facility] to SR . He states no significantly better to make a huge difference as he was unaware of his A. fib in the past. He states that on the other hand his brother who also have diagnosis of A. fib is markedly symptomatic. He continues to walk and is active. He has never been evaluated for sleep apnea. Currently his blood pressure is markedly high despite his metoprolol being increased from 50 to 75 mg twice daily. Denies chest pain, shortness of breath, orthopnea, or tachycardia. States he feels like he goes in and out of a fib occasionally. Denies lightheadedness or dizziness, weakness or vision changes. Denies any bleeding tendencies. States he is very active and does regular exercise regimen every day he walks 6 miles on treadmill. EKG 02/04/22 Afib with VR in 40;s Patient underwent cardioversion on 11/20/2021 after he was loaded with amiodarone. Echocardiogram 12/11/2021 shows ejection fraction of 59% with a severely dilated left atrium and right atrium with moderate dilatation of the RV with underlying RVSP of 35 mmHg, mild MR MOJGNA performed on 09/13/2018 shows normal LV size and systolic function with an RV that appears enlarged in the left atrium that appears enlarged with no thrombus. We will do cardioversion was performed at that time to converted to sinus rhythm Echocardiogram on 09/11/2018 showed EF of 60% with left atrium that appears enlarged is mildly enlarged. EKG on 11/20/2021 shows sinus rhythm post cardioversion PMH: Past Medical History: Diagnosis Date Abnormal ECG Arrhythmia Cancer (CMS/HCC) Chronic atrial fibrillation (CMS/HCC) HTN (hypertension) Sleep apnea PSH: Past Surgical History: Procedure Laterality Date ABLATION OF DYSRHYTHMIC FOCUS CARDIOVERSION SH: Social Determinants of Health Tobacco Use: Low Risk (04/01/2023) Patient History Smoking Tobacco Use: Never Smokeless Tobacco Use: Never Passive Exposure: Not on file Alcohol Use: Not on file Financial Resource Strain: Not on file Food Insecurity: Not on file Transportation Needs: Not on file Physical Activity: Not on file Stress: Not on file Social Connections: Not on file Intimate Partner Violence: Not on file Depression: Not on file Housing Stability: Not on file Allergies: No Known Allergies Weight: 103kg Visit Vitals BP (!) 148/92 (BP Location: Left arm, Patient Position: Sitting) Pulse 65 Ht 1.93 m (6' 4 ) Wt 103 kg (226 lb) SpO2 96% BMI 27.51 kg/m??? Smoking Status Never BSA 2.35 m??? Meds: Current Outpatient Medications on File Prior to Visit Medication Sig Dispense Refill lisinopril 10 mg tablet Take 1 tablet (10 mg) by mouth in the morning. 90 tablet 3 metoprolol tartrate 75 mg tablet Take 1 tablet (75 mg) by mouth in the morning and at bedtime. 180 tablet 3 rivaroxaban (Xarelto) 20 mg tablet Take 1 tablet (20 mg) by mouth in the morning. 90 tablet 3 spironolactone (Aldactone) 25 mg tablet Take 1 tablet (25 mg) by mouth in the morning. 90 tablet 3 No current facility-administered medications on file prior to visit. ROS: Review of Systems Musculoskeletal: Positive for myalgias. All other systems reviewed and are negative. Physical Exam: Constitutional General Appearance: well-nourished, well-developed, appears stated age Level of Distress: comfortable Psychiatric Mental Status: alert, normal affect Orientation: oriented to time, place, and person Insight: good judgement Eyes Lids and Conjunctivae: non-injected, no xanthelasma ENMT Ears: no lesions on external ear Nose: no lesions on external nose Oropharynx: no cyanosis, no pallor Neck Neck: supple, trachea midline Carotid Arteries: bilateral normal upstroke, no bruits Jugular Veins: normal jugular venous pressure Thyroid: not enlarged Lungs Respiratory Effort: unlabored Chest Exam: normal curvature, no thoracic deformity Auscultation: clear, no wheezing, no rales, no rhonchi Cardiovascular Rat (more content not included)... [facility] 11-10-2023 Note Patient here for 6 m o follow up chronic afib. No recent labs or imaging. Denies chest pain, SOB, palpitations, lightheadedness/syncope, and bleeding on Xarelto. BP at home when checked averages around 120/80. Review of Systems Musculoskeletal: Positive for myalgias. All other systems reviewed and are negative. [facility] 10-01-2023 Evaluation note Encounter Date Diagnosis Assessment Notes Sep, Lumbar stenosis without neurogenic claudication (ICD-10 - M48.061) Independently looked at the MRI of the lumbar spine and the plain x-ray of the lumbar spine and reports. The patient has no instability with flexion and extension. He has a very spondylitic canal that may be almost completely ankylosed at L4-5 he has a moderate stenosis possibly moderate severe. He has a synovial cyst on the right. Yet this patient is able to walk 5 miles a day he has no true radicular pain and the walking of 5 miles does not cause the pain to occur. This is not a surgical entity in my opinion I think this patient does more than the average at his age. He has no back pain whatsoever. I just do not believe that any surgical intervention will make a difference at this point the patient understands and agrees. Sep, Pain in right leg (ICD-10 - M79.604) Sep, Pain in left leg (ICD-10 - M79.605) [employer] Other [id number] Note-[facility]-BP controlled -ct medications: lisinopril 10mg every day, toprol tartrate 75mg bid, xarelto 20mg, aldactone 25mg qdUnWay[facility]05-17-2023 Note [id number] 1 for htn, will ct xarelto -DCCV x3 with amio, still has afib controlled rate and known hx of slow VR int0 40bpm -surgical ablation was mentioned as an option for ablation vs PPM with AVN ablation, patient does not want to consider at this time -will have him follow up [facility] [address] [facility] NotePatient here for 6 mo follow up persistent afib and hypertension. Had melanoma removed from his nose 2 weeks ago. Didn't have much bleeding he said. Denies chest pain, SOB, palpitations, and bleeding on Xarelto. Had routine labs back in January 2023. Doing great. He did have sleep study and is not able to tolerate machine. He would like to discuss alternatives with someone if possible. Review of Systems Musculoskeletal: Positive for myalgias. All other systems reviewed and are negative.[facility] 04-01-2023 NoteUT Electrophysiology Consult Note Reason for visit: 6 month follow up , afib HPI: Reece Hogue is a 63 y.o. year old with past medical history of htn, afib s/p DCCV which was initially successful with amiodarone on board but soon after reverted to af - slow VR with hx bradycardia. Per pulse check he is in afib. He continues to be asymptomatic and exercises regularly with no concerns for CP, SOB/BENITES. HE denies orthopnea, LE edema. He continues to xarelto with no concerns for bleeding or intolerance -- Per Dr. Carranza 02/04/2022 CC: Afib HPI: 60-year-old male with a history of atrial fibrillation/ HTN and no other cardiac history was recently cardioverted by me at [facility] to SR . He states no significantly better to make a huge difference as he was unaware of his A. fib in the past. He states that on the other hand his brother who also have diagnosis of A. fib is markedly symptomatic. He continues to walk and is active. He has never been evaluated for sleep apnea. Currently his blood pressure is markedly high despite his metoprolol being increased from 50 to 75 mg twice daily. Denies chest pain, shortness of breath, orthopnea, or tachycardia. States he feels like he goes in and out of a fib occasionally. Denies lightheadedness or dizziness, weakness or vision changes. Denies any bleeding tendencies. States he is very active and does regular exercise regimen every day he walks 6 miles on treadmill. EKG 02/04/22 Afib with VR in 40;s Patient underwent cardioversion on 11/20/2021 after he was loaded with amiodarone. Echocardiogram 12/11/2021 shows ejection fraction of 59% with a severely dilated left atrium and right atrium with moderate dilatation of the RV with underlying RVSP of 35 mmHg, mild MR MOJGAN performed on 09/13/2018 shows normal LV size and systolic function with an RV that appears enlarged in the left atrium that appears enlarged with no thrombus. We will do cardioversion was performed at that time to converted to sinus rhythm Echocardiogram on 09/11/2018 showed EF of 60% with left atrium that appears enlarged is mildly enlarged. EKG on 11/20/2021 shows sinus rhythm post cardioversion PMH: Past Medical History: Diagnosis Date Abnormal ECG Arrhythmia Cancer (CMS/HCC) Chronic atrial fibrillation (CMS/HCC) HTN (hypertension) Sleep apnea PSH: Past Surgical History: Procedure Laterality Date ABLATION OF DYSRHYTHMIC FOCUS CARDIOVERSION SH: Social Determinants of Health Tobacco Use: Low Risk Smoking Tobacco Use: Never Smokeless Tobacco Use: Never Passive Exposure: Not on file Alcohol Use: Not on file Financial Resource Strain: Not on file Food Insecurity: Not on file Transportation Needs: Not on file Physical Activity: Not on file Stress: Not on file Social Connections: Not on file Intimate Partner Violence: Not on file Depression: Not on file Housing Stability: Not on file Allergies: No Known Allergies Weight: 104kg Visit Vitals BP 123/80 (BP Location: Left arm, Patient Position: Sitting) Pulse 72 Ht 1.93 m (6' 4 ) Wt 104 kg (230 lb) SpO2 98% BMI 28.00 kg/m??? Smoking Status Never BSA 2.36 m??? Meds: Current Outpatient Medications on File Prior to Visit Medication Sig Dispense Refill lisinopril 10 mg tablet Take 1 tablet (10 mg) by mouth in the morning. 90 tablet 3 metoprolol tartrate 75 mg tablet Take 1 tablet (75 mg) by mouth in the morning and at bedtime. 180 tablet 3 rivaroxaban (Xarelto) 20 mg tablet Take 1 tablet (20 mg) by mouth in the morning. 90 tablet 3 spironolactone (Aldactone) 25 mg tablet Take 1 tablet (25 mg) by mouth in the morning. 90 tablet 3 No current facility-administered medications on file prior to visit. ROS: Cardio Basic Cardiovascular Symptoms: no lightheadedness, no leg edema, no syncope, no orthopnea, no PND, no claudication, Constitutional Constitutional: no fever, no night sweats, no significant weight gain, no significant weight loss, no exercise intolerance Eyes Eyes: no dry eyes, no irritation, no vision change ENMT Ears: no difficulty hearing, no ear pain Nose: no frequent nosebleeds, Mouth/Throat: no sore throat, no bleeding gums, no snoring, no dry mouth, no mouth ulcers, no oral abnormalities, no teeth problems Respiratory Respiratory: no cough, no wheezing, no coughing up blood, no sleep apnea Musculoskeletal Musculoskeletal: no muscle aches, no muscle weakness, joint pain+, no back pain, no swelling in the extremities Integumentary Skin no rash, no ulcer, no varicosities, no discoloration, no pruritus Neurologic Neurologic: no loss of consciousness, no weakness, no numbness, no seizures, no dizziness, no headaches Psychiatric Psych: no depression, feeling safe in relationship, no alcohol abuse, Hematologic/Lymphatic Hematologic/Lymphatic no swoll (more content not included)...[facility] note[facility]/ADept. of Dermatology Evaluation noteNo assessment information available [facility] Work Phone: History general Narrative - Reported* Type Description Date Medical History heart disease Medical History melanoma Surgical History melanoma excision Hospitalization History see above [facility] Other reason for referral (narrative)* Name Reason for referral NA JULIETH Dept. of Dermatology Summary Purpose Family History No Family History Records FoundNo Family History Records FoundNo Family History Records FoundNo Family History Records FoundNo Family History Records Found Advance Directives No Advanced Directives Records Found Advance Directive Response Recorded Date/ Time Advance Directives No October 01, 2023 7:32am Hospital Course Note MR[id number]ogue Admitted: 09/10/2018 Discharged: 09/14/2018 Date of : 1960 Physician: Primo Glaser MD DISCHARGE SUMMARYDISCHARGE ATTENDING PHYSICIAN: Primo Glaser [facility] PHYSICIAN: Dr. Jacobson at [phone].PRINCIPAL DIAGNOSIS: Atrial fibrillation/flutter, status post TEEconversion currently in sinus rate.CONSULTATION: Cardiology consulted during hospice.PROCEDURE: The patient had MOJGAN conversion completed on Thursday, September 13.PHYSICAL EXAMINATION: Today:GENERAL: Alert, awake, oriented x3.HEENT: PERRLA.NECK: Supple.CHEST: S1 and S2. No murmur.RESPIRATORY: Lung sounds clear. No wheeze. Nonlabored.ABDOMEN: soft.EXTREMITIES: No edema. The patient moves all 4 extremities.SKIN: Warm and dry.HOSPITAL COURSE: A 58-year-old male, admitted from cardiology officebecause of atrial fibrillation. The patient has history of atrialfibrillation and was taking Xarelto. The patient admitted from 's of (more content not included)... Chief Complaint and Reason for Visit Chief Complaint m54.50 Additional Source Comments (unrecognized sect ion and content) No Status Records FoundNo Status Records FoundNo Status Records FoundNo Status Records FoundNo Status Records Found INFORMATION SOURCE (unrecogn ized section and content) DATE CREATED AUTHOR 10/23/2018 [facility] DATE CREATED AUTHOR AUTHOR'S ORGANIZ ATION 02/27/2023 [facility] DATE CREATED AUTHOR AUTHOR'S ORGANIZ ATION 03/25/2023 [facility] DATE CREATED AUTHOR AUTHOR'S ORGANIZ ATION 10/09/2023 [facility] DATE CREATED AUTHOR AUTHOR'S ORGANIZ ATION 11/18/2023 [facility] Care Teams (unrecognized sec tion and content) Team Status: Active Member Role Status Dates Kacy Jacobson MD Primary Care Provider Active Team Status: Inactive Member Role Status Dates Sher Whitfield MD Attending Provider Active Kacy Jacobson MD Primary Care Provider Active Goals (unrecognized section and content) Goals may be documented in a n alternate sectionNo Information REASON FOR VISIT (unrecogniz ed section and content) referred by Dr. Jacobson lumbar r adiculopathy FOR RECORDS PERTAINING TO PATIENTS WHO ARE OR HAVE BEEN ENROLLED IN A CHEMICAL DEPENDENCY/SUBSTANCEABUSE PROGRAM, SOME INFORMATION MAY BE OMITTED. This clinical summary was aggregated from multiple sources. Caution should be exercised in using it in the provision of clinical care. This summary normalizes information from multiple sources, and as a consequence, information in this document may materially change the coding, format and clinical context of patient data. In addition, data may be omitted in some cases. CLINICAL DECISIONS SHOULD BE BASED ON THE PRIMARY CLINICAL RECORDS. [facility]. provides no warranty or guarantee of the accuracy or completeness of information in this document.
[2024-01-15 11:47] LABS: Influenza Virus A Antigen Negative; Influenza Virus B Antigen Negative; Internal Control Within Normal Limits; SARS-CoV-2 Ag NEGATIVE (NEGATIVE)
[2024-01-15 16:03] LABS: SARS-CoV-2 NAA NOT DETECTED (NOT DETECTE)
== END 2024-01-15 09:33 | disposition home or self-care (01) ==
LOC: LAB 09:32
PROVIDERS: PCP Family Medicine; Visit Provider Family Medicine
DX: J01.90 Acute sinusitis, unspecified (principal)
CPT/HCPCS: 87635; 87804; 87811

== ENCOUNTER 2024-01-20 16:22 | Outpatient (RCR) | payer BC, OTHER, SELFPAY | END 2024-02-12 11:48 | disposition home or self-care (01) | LOC: PT 16:22 | PROVIDERS: PCP Family Medicine; Visit Provider Psychiatry & Neurology Neurology | DX: M54.18 Radiculopathy, sacral and sacrococcygeal region (principal) | CPT/HCPCS: 97110; 97162 ==

== ENCOUNTER 2024-03-11 08:53 | Outpatient (OUT) | payer OTHER, SELFPAY ==
--- NOTE | 2024-03-11 09:00 | CA_ITS ---
[facility] Test Date: 2024-03-11 Pat Name: REECE HOGUE Department: Room: - Gender: Male [employer]: : 1960 Requested By: KACY MUHAMMAD Order Number: [id number] Reading MD: MEME ANDUJAR Interpretive Statements Biphasic doppler waveforms. PVR waveforms with normal upstroke, amplitude and dicrotic notch. Right: - no significant pressure gradient between cuffs - normal EUGENE Left: - no significant pressure gradient between cuffs - normal EUGENE Impression: Normal arterial evaluation of the lower extremities without hemodynamic impairment of the B/L lower extremities at rest (right EUGENE 1.21, left EUGENE 1.10) Electronically Signed On 03-11-2024 17:56:09 EDT by MEME ANDUJAR
--- OUTSIDE RECORDS SUMMARY | 2024-03-11 09:05 | XMS_ITS | CCD ---
Author Organization [facility] Care Team Providers Care [facility] Name Role Phone PHYSICIAN, DEFAULT Unavailable Unavailable PHYSICIAN, DEFAULT Unavailable Unavailable CHLOÉ, HANI Unavailable Unavailable YURY FUNEZ AM Unavailable Unavailable KACY JACOBSON Unavailable Unavailable RODOLFO, VERAS R Unavailable Unavailable CO Unavailable Unavailable UNKNOWN, PROVIDER Unavailable Unavailable PHYSICIAN, DEFAULT Unavailable Unavailable PHYSICIAN, DEFAULT Unavailable Unavailable SABINA KACY Unavailable Unavailable HAROLDO, RENU Consulting Unavailable HOY [...] Admitting Unavailable HAROLDO, RENU Consulting Unavailable HOY ., DR WOODRUFF Primary Care Unavailable HAROLDO, RENU Attending Unavailable HAROLDO, RENU Attending Unavailable HAROLDO, RENU Consulting Unavailable HOY .DR WOODRUFF Primary Care Unavailable HAROLDO, RENU Admitting Unavailable HOY ., DR WOODRUFF Primary Care Unavailable HOY .DR WOODRUFF Admitting Unavailable HOY ., DR WOODRUFF Attending Unavailable HOY ., DR WOODRUFF Consulting Unavailable HOY ., DR WOODRUFF Primary Care Unavailable HOY ., DR WOODRUFF Admitting Unavailable HOY ., DR WOODRUFF Attending Unavailable HOY ., DR WOODRUFF Consulting Unavailable ZIEBERDR JO Consulting Unavailable Marcos, Ellie Unavailable Unavailable Luke Reinoso Unavailable Unavailable UNKNOWN, PCP Primary Care Unavailable Luke Reinoso Attending Unavailable UNKNOWN, UNKNOWN Referring Unavailable UNKNOWN, PCP [facility] 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; 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: [CORRECTION (CURRENT) USE OF ANTICOAGULANTS] Onset: 09-10-2018 Episodic [...] Range Facility Office Visiton 11-10-2023 Follow-up visit [id number] Susanna Hogue D 1960 M Date Provider Department Center 11/10/2023 RANDY JOHNSTON BRITNEY Luis Family History Problem Relation Age of Onset Heart attack Maternal Grandfather Family Status - Relation Status Age at Maternal Grandfather Level of Service:58452 CO OFFICE/OUTPATIENT ESTABLISHED LOW MDM 20 MIN Normal [facility] Orders Onlyon 11-10-2023 Orders Only [id number] Susanna Hogue D 1960 M Date Provider Department Center 11/10/2023 CRISTINO AYALA BRITNEY Luis Family History Problem Relation Age of Onset Heart attack Maternal Grandfather Family Status - Relation Status Age at Maternal Grandfather [facility] XR lumbar spine 6V w bending on 10-01-2023 XR lumbar spine 6V w bending [facility] [place] [address] [place], [place] [id number] XRay Report Signed Patient: Reece Hogue MR#: [id number] : 1960 Acct:[id number] Age/Sex: 63 / M ADM Date: 10/01/23 Loc: XD Room: Type: [facility] Attending Dr: Sher Whitfield MD Copies to: [...] Nila Christensen M.D.10/01/2023 12:35 PM Dictation Location: [place] [address] Transcribed By: [facility] 10/01/23 1235 Dictated By: Nila Christensen MD 10/01/23 1226 Signed By: 10/01/23 1235 [facility] Office Visiton 04-01-2023 Follow-up visit [id number] Susanna Hogue Dionicio 1960 M Date Provider Department Center 04/01/2023 Joseph-KATHE DE DIOS CARD [facility] Family History Problem Relation Age of Onset Heart attack Maternal Grandfather Family Status - Relation Status Age at Maternal Grandfather Level of Service:26321 CO OFFICE/OUTPATIENT ESTABLISHED MOD MDM 30-39 MIN Reason for Visit and Comments: Atrial Fibrillation [80] Hypertension [465646] Normal [facility] Dermatopathologyon 3 Dermatopathology Name: REECE HOGUE Pathologist: JAIMEE NEGRETE MD Date of Procedure: 02/24/2023 Date Received: 02/24/2023 Date Reported 02/25/2023 Submitting Physician: LUKE REINOSO MD, Location: [facility] Copy To/Referring/Attending: MD KAUR PERDOMO FINAL DIAGNOSIS 4 SLIDES, [facility], #[id number] (BX: 02/03/2023) SKIN, LEFT NASAL SIDEWALL, SHAVE [...] REPORT A. 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 Slide/Block Description 4 SLIDES, [id number]. Keep Slides: N Slides Returned: N Personal Consult: N Normal [facility] Comment on above: Performed By: #### D #### Dermatopathology MRI LSPINE WO CONon 02-19-20 MRI LSPINE WO CON EXAMINATION: MRI LSP [...] JO RUSSELL Date: 2023-02-18 14:29 Normal [facility] INSULINon 01-23-2023 Insulin 7.9 uIU/mL Normal 2.6-24.9 [facility] Comment on above: Performed By: #### T 7, URIC, TSH, CMP, LIPID #### [facility] [address] [place] [address] Dr. Ayush Sorto CBC AUTO DIFFon 01-22-2023 BASO # 0.0 103/ul Normal 0.0-0.1 [facility] Comment on above: Performed By: #### C BC #### [facility] [address] [place] [address] Dr. Ayush Sorto Basophils/100 WBC (Bld) 0.6 % Normal 0.2-2.0 [facility] Comment on above: Performed By: #### C BC #### [facility] [address] [place] [address] Dr. Ayush Sorto EO # 0.2 103/ul Normal 0.0-0.7 [facility] Comment on above: Performed By: #### C BC #### [facility] [address] [place] [address] Dr. Ayush Sorto Eosinophils/100 WBC (Bld) 2.3 % Normal 0.9-7.0 [facility] Comment on above: Performed By: #### C BC #### [facility] [address] [place] [address] Dr. Ayush Sorto Erythrocyte distribution width (RBC) [Ratio] 13.2 % Normal 11.0-15.0 [facility] Comment on above: Performed By: #### C BC #### [facility] [address] [place] [address] Dr. Ayush Sorto Hematocrit (Bld) [Volume fraction] 48.6 % Normal 42.0-54.0 [facility] Comment on above: Performed By: #### C BC #### [facility] [address] [place] [address] Dr. Ayush Sorto Hemoglobin (Bld) [Mass/Vol] 16.4 g/dL Normal 14.0-18.0 [facility] Comment on above: Performed By: #### C BC #### [facility] [address] [place] [address] Dr. Ayush Sorto IG # 0.02 10e3/ul Normal 0.00-0.03 [facility] Comment on above: Performed By: #### C BC #### [facility] [address] [place] [address] Dr. Ayush Sorto IG % 0.3 % Normal 0.0-0.5 [facility] Comment on above: Performed By: #### C BC #### [facility] [address] [place] [address] Dr. Ayush Sorto LYMPH # 1.6 103/ul Normal 1.2-3.8 [facility] Comment on above: Performed By: #### C BC #### [facility] [address] [place] [address] Dr. Ayush Sorto Lymphocytes/100 WBC (Bld) 24.7 % Normal 20.5-60.0 [facility] Comment on above: Performed By: #### C BC #### [facility] [address] [place] [address] Dr. Ayush Sorto MANUAL DIFF REQ NO Normal [facility] Comment on above: Performed By: #### C BC #### [facility] [address] [place] [address] Dr. Ayush Sorto MCH (RBC) [Entitic mass] 30.0 pg Normal 25.9-34.0 [facility] Comment on above: Performed By: #### C BC #### [facility] [address] [place] [address] Dr. Aysuh Sorto MCHC (RBC) [Mass/Vol] 33.7 g/dL Normal 29.9-35.2 [facility] Comment on above: Performed By: #### C BC #### [facility] [address] [place] [address] Dr. Ayush Sorto MCV (RBC) [Entitic vol] 89.0 fL Normal 80.0-94.0 [facility] Comment on above: Performed By: #### C BC #### [facility] [address] [place] [address] Dr. Ayush Sorto MONO # 0.7 103/ul Normal 0.3-0.8 [facility] Comment on above: Performed By: #### C BC #### [facility] [address] [place] [address] Dr. Ayush Sorto Monocytes/100 WBC (Bld) 10.1 % Normal 1.7-12.0 [facility] Comment on above: Performed By: #### C BC #### [facility] [address] [place] [address] Dr. Ayush Sorto NEUT # 4.1 103/ul Normal 1.4-6.5 [facility] Comment on above: Performed By: #### C BC #### [facility] [address] [place] [address] Dr. Ayush Sorto Neutrophils/100 WBC (Bld) 62.0 % Normal 43.0-75.0 [facility] Comment on above: Performed By: #### C BC #### [facility] [address] [place] [address] Dr. Ayush Sorto Platelet mean volume (Bld) [Entitic vol] 8.6 fL Critically low 9.5-13.5 [facility] Comment on above: Performed By: #### C BC #### [facility] [address] [place] [address] Dr. Ayush Sorto PLT 248 103/ul Normal 150-450 [facility] Comment on above: Performed By: #### C BC #### [facility] [address] [place] [address] Dr. Ayush Sorto RBC 5.46 106/ul Normal 4.70-6.10 [facility] Comment on above: Performed By: #### C BC #### [facility] [address] [place] [address] Dr. Ayush Sorto WBC 6.6 103/ul Normal 4.0-11.0 [facility] Comment on above: Performed By: #### C BC #### [facility] [address] [place] [address] Dr. Ayush Sorto FREE THYROXINE INDEX T7on FTI 3.31 Normal 1.30-4.50 [facility] Comment on above: Performed By: #### T 7, URIC, TSH, CMP, LIPID #### [facility] [address] [place] [address] Dr. Ayush Sorto T3U 36.0 % Normal 33.0-40.0 [facility] Comment on above: Performed By: #### T 7, URIC, TSH, CMP, LIPID #### [facility] [address] [place] [address] Dr. Ayush Sorto T4 [Mass/Vol] 9.20 ug/dL Normal 4.50-12.10 [facility] Comment on above: Performed By: #### T 7, URIC, TSH, CMP, LIPID #### [facility] [address] [place] [address] Dr. Ayush Sorto GLYCOHEMOGLOBIN A1Con 2022 ADA RECOMMENDATION SEE BELOW Normal [facility] Comment on above: Result Comment: ADA RECOMMENDED LIMIT 4.0 - 6.0 ADA THERAPEUTIC TARGET < 7.0 ACTION SUGGESTED > 7.0 Performed By: #### T 7, URIC, TSH, CMP, LIPID #### [facility] [address] [place] [address] Dr. Ayush Sorto Glucose [Mass/Vol] 117 mg/dL Normal [facility] Comment on above: Performed By: #### T 7, URIC, TSH, CMP, LIPID #### [facility] [address] [place] [address] [address] Ayush Sorto HbA1c (Bld) [Mass fraction] 5.7 % Normal 4.5-6.2 [facility] Comment on above: Performed By: #### T 7, URIC, TSH, CMP, LIPID #### [facility] [address] [place] [address] [address] Ayush Sorto LIPID PROFILEon 01-22-2023 CHOL-HDL RATIO NORM SEE BELOW Normal [facility] Comment on above: Result Comment: 3.3 - 4.4 LOW RISK 4.4 - 7.1 AVERAGE RISK 7.1 - 11.0 MODERATE RISK >11.0 HIGH RISK Performed By: #### T 7, URIC, TSH, CMP, LIPID #### [facility] [address] [place] [address] [address] Ayush Sorto Cholesterol [Mass/Vol] 216 mg/dL Critically high <=200 [facility] Comment on above: Performed By: #### T 7, URIC, TSH, CMP, LIPID #### [facility] [address] [place] [address] [address] Ayush Sorto Cholesterol in HDL [Mass/Vol] 68 mg/dL Critically high 40-60 [facility] Comment on above: Performed By: #### T 7, URIC, TSH, CMP, LIPID #### [facility] [address] [place] [address] [address] Ayush Sorto Cholesterol in LDL [Mass/Vol] 136.6 mg/dL Normal [facility] Comment on above: Performed By: #### T 7, URIC, TSH, CMP, LIPID #### [facility] [address] [place] [address] [address] Ayush Sorto Cholesterol.total/C holesterol in HDL [Mass ratio] 3.2 {ratio} Normal [facility] Comment on above: Performed By: #### T 7, URIC, TSH, CMP, LIPID #### [facility] [address] [place] [address] [address] Ayush Sorto HDL NORMAL > or = 60 mg/dl - LO W CARDIOVASCULAR RISK <40 mg/dl - HIGH CARDIOVASCULAR RISK Normal [facility] Comment on above: Performed By: #### T 7, URIC, TSH, CMP, LIPID #### [facility] [address] [place] [address] Dr. Ayush Sorto LDL CALC NORMAL SEE BELOW Normal [facility] Comment on above: Result Comment: <100 mg/dl OPTIMAL 100 - 129 mg/dl NEAR OR ABOVE OPTIMAL 130 - 159 mg/dl BORDERLINE HIGH 160 - 189 mg/dl HIGH >190 mg/dl VERY HIGH Performed By: #### T 7, URIC, TSH, CMP, LIPID #### [facility] [address] [place] [address] [address] Ayush Sorto Triglyceride [Mass/Vol] 57 mg/dL Normal <=150 [facility] Comment on above: Performed By: #### T 7, URIC, TSH, CMP, LIPID #### [facility] [address] [place] [address] Dr. Ayush Sorto VLDL CALC 11.4 mg/dL Normal [facility] Comment on above: Performed By: #### T 7, URIC, TSH, CMP, LIPID #### [facility] [address] [place] [address] Dr. Ayush Sorto PROF 14(COMP METB)on 023 Albumin [Mass/Vol] 4.0 g/dL Normal 3.4-5.0 [facility] Comment on above: Performed By: #### T 7, URIC, TSH, CMP, LIPID #### [facility] [address] [place] [address] Dr. Ayush Sorto Albumin/Globulin [Mass ratio] 1.2 {ratio} Normal [facility] Comment on above: Performed By: #### T 7, URIC, TSH, CMP, LIPID #### [facility] [address] [place] [address] [address] Ayush Sorto ALP [Catalytic activity/Vol] 85 U/L Normal 46-116 [facility] Comment on above: Performed By: #### T 7, URIC, TSH, CMP, LIPID #### [facility] [address] [place] [address] [address] Ayush Sorto ALT [Catalytic activity/Vol] 28 U/L Normal 16-63 [facility] Comment on above: Performed By: #### T 7, URIC, TSH, CMP, LIPID #### [facility] [address] [place] [address] Dr. Ayush Sorto Anion gap [Moles/Vol] 12.9 mmol/L Normal [facility] Comment on above: Performed By: #### T 7, URIC, TSH, CMP, LIPID #### [facility] [address] [place] [address] Dr. Ayush Sorto AST [Catalytic activity/Vol] 23 U/L Normal 15-37 [facility] Comment on above: Performed By: #### T 7, URIC, TSH, CMP, LIPID #### [facility] [address] [place] [address] Dr. Ayush Sorto Bilirubin [Mass/Vol] 1.1 mg/dL Critically high 0.2-1.0 [facility] Comment on above: Performed By: #### T 7, URIC, TSH, CMP, LIPID #### [facility] [address] [place] [address] Dr. Ayush Sorto Calcium [Mass/Vol] 9.2 mg/dL Normal 8.5-10.1 [facility] Comment on above: Performed By: #### T 7, URIC, TSH, CMP, LIPID #### [facility] [address] [place] [address] Dr. Ayush Sorto Chloride [Moles/Vol] 103 mmol/L Normal 98-107 [facility] Comment on above: Performed By: #### T 7, URIC, TSH, CMP, LIPID #### [facility] [address] [place] [address] Dr. Ayush Sorto CO2 [Moles/Vol] 27.9 mmol/L Normal 21.0-32.0 [facility] Comment on above: Performed By: #### T 7, URIC, TSH, CMP, LIPID #### [facility] [address] [place] [address] Dr. Ayush Sorto Creatinine [Mass/Vol] 0.88 mg/dL Normal 0.70-1.30 [facility] Comment on above: Performed By: #### T 7, URIC, TSH, CMP, LIPID #### [facility] [address] [place] [address] [address] Ayush Sorto EGFR-AF MACANESE >60 Normal >=60 [facility] Comment on above: Performed By: #### T 7, URIC, TSH, CMP, LIPID #### [facility] [address] [place] [address] [address] Ayush Sorto EGFR-NON AF MACANESE >60 Normal >=60 [facility] Comment on above: Performed By: #### T 7, URIC, TSH, CMP, LIPID #### [facility] [address] [place] [address] [address] Ayush Sorto Globulin (S) [Mass/Vol] 3.4 g/dL Normal [facility] Comment on above: Performed By: #### T 7, URIC, TSH, CMP, LIPID #### [facility] [address] [place] [address] Dr. Ayush Sorto Glucose [Mass/Vol] 93 mg/dL Normal 74-106 [facility] Comment on above: Performed By: #### T 7, URIC, TSH, CMP, LIPID #### [facility] [address] [place] [address] [address] Ayush Sorto Potassium [Moles/Vol] 4.8 mmol/L Normal 3.5-5.1 [facility] Comment on above: Performed By: #### T 7, URIC, TSH, CMP, LIPID #### [facility] [address] [place] [address] [address] Ayush Sorto Protein [Mass/Vol] 7.4 g/dL Normal 6.4-8.2 [facility] Comment on above: Performed By: #### T 7, URIC, TSH, CMP, LIPID #### [facility] [address] [place] [address] Dr. Ayush Sorto Sodium [Moles/Vol] 139 mmol/L Normal 136-145 [facility] Comment on above: Performed By: #### T 7, URIC, TSH, CMP, LIPID #### [facility] [address] [place] [address] Dr. Ayush Sorto Urea nitrogen [Mass/Vol] 23.0 mg/dL Critically high 7.0-18.0 [facility] Comment on above: Performed By: #### T 7, URIC, TSH, CMP, LIPID #### [facility] [address] [place] [address] Dr. Ayush Sorto Urea nitrogen/Creatinine [Mass ratio] 26.1 mg/mg Normal [facility] Comment on above: Performed By: #### T 7, URIC, TSH, CMP, LIPID #### [facility] [address] [place] [address] Dr. Ayush Sorto TSHon 01-22-2023 TSH 1.145 uIU/mL Normal 0.358-3.74 0 [facility] Comment on above: Performed By: #### T 7, URIC, TSH, CMP, LIPID #### [facility] [address] [place] [address] Dr. Ayush Sorto URIC ACID SERUMon 01-22-2023 Urate [Mass/Vol] 6.8 mg/dL Normal 3.5-7.2 [facility] Comment on above: Performed By: #### T 7, URIC, TSH, CMP, LIPID #### [facility] [address] [place] [address] Dr. Ayush Sorto VITAMIN D 25 OHon 01-22-2023 VIT D 25-OH 72.7 ng/mL Normal [facility] Comment on above: Performed By: #### V PLACIDO PSASC #### [facility] [address] [place] [address] Dr. Ayush Sorto VIT D RANGES SEE BELOW Normal [facility] Comment on above: Result Comment: <20 ng/mL Vit D deficient 20 - <30 ng/mL Vit D insufficient 30 - 100 ng/mL Vit D sufficient >100 ng/mL Potential Toxicity Performed By: #### V PLACIDO PSASC #### [facility] [address] [place] [address] Dr. Ayush Sorto PROF CHEM 8 (BAS METB)on Anion gap [Moles/Vol] 10.1 mmol/L Normal [facility] Comment on above: Performed By: #### T 7, URIC, TSH, CMP, LIPID #### [facility] [address] [place] [address] [address] Ayush Sorto Calcium [Mass/Vol] 9.3 mg/dL Normal 8.5-10.1 [facility] Comment on above: Performed By: #### T 7, URIC, TSH, CMP, LIPID #### [facility] [address] [place] [address] [address] Ayush Sorto Chloride [Moles/Vol] 102 mmol/L Normal 98-107 [facility] Comment on above: Performed By: #### T 7, URIC, TSH, CMP, LIPID #### [facility] [address] [place] [address] Dr. Ayush Sorto CO2 [Moles/Vol] 31.8 mmol/L Normal 21.0-32.0 [facility] Comment on above: Performed By: #### T 7, URIC, TSH, CMP, LIPID #### [facility] [address] [place] [address] Dr. Ayush Sorto Creatinine [Mass/Vol] 1.03 mg/dL Normal 0.70-1.30 [facility] Comment on above: Performed By: #### T 7, URIC, TSH, CMP, LIPID #### [facility] [address] [place] [address] Dr. Ayush Sorto EGFR-AF MACANESE >60 Normal >=60 [facility] Comment on above: Performed By: #### T 7, URIC, TSH, CMP, LIPID #### [facility] [address] [place] [address] Dr. Ayush Sorto EGFR-NON AF MACANESE >60 Normal >=60 [facility] Comment on above: Performed By: #### T 7, URIC, TSH, CMP, LIPID #### [facility] [address] [place] [address] Dr. Ayush Sorto Glucose [Mass/Vol] 121 mg/dL Critically high 74-106 [facility] Comment on above: Performed By: #### T 7, URIC, TSH, CMP, LIPID #### [facility] [address] [address] [address] Ayush Sorto Potassium [Moles/Vol] 4.9 mmol/L Normal 3.5-5.1 [facility] Comment on above: Performed By: #### T 7, URIC, TSH, CMP, LIPID #### [facility] [address] [place] [address] [address] Ayush Sorto Sodium [Moles/Vol] 139 mmol/L Normal 136-145 [facility] Comment on above: Performed By: #### T 7, URIC, TSH, CMP, LIPID #### [facility] [address] [address] [address] Ayush Sorto Urea nitrogen [Mass/Vol] 15.0 mg/dL Normal 7.0-18.0 [facility] Comment on above: Performed By: #### T 7, URIC, TSH, CMP, LIPID #### [facility] [address] [place] [address] [address] Ayush Sorto Urea nitrogen/Creatinine [Mass ratio] 14.6 mg/mg Normal [facility] Comment on above: Performed By: #### T 7, URIC, TSH, CMP, LIPID #### [facility] [address] [address] [address] Ayush Sorto ECHOCARDIO M/2D COMPLETEon 1 11-24-2021 ECHOCARDIO M/2D COMPLETE Patient: REECE HOGUE Exam Date: 09/24/2022 : 1960 Gender:M Ordering : RENU ZARCO [facility] Admission #: [id number] Family : DR KACY JACOBSON . Order #: [id number] CLICK HERE TO VIEW EXAM ECHOCARDIOGRAM REPORT [...] M.D. on 09/24/2022 at 16:24 Normal [facility] CBC AUTO DIFFon 09-10-2022 BASO # 0.1 103/ul Normal 0.0-0.1 [facility] Comment on above: Performed By: #### C BC #### [facility] [address] [address] [address] Ayush Sorto Basophils/100 WBC (Bld) 0.8 % Normal 0.2-2.0 [facility] Comment on above: Performed By: #### C BC #### [facility] [address] [address] [address] Ayush Sorto EO # 0.1 103/ul Normal 0.0-0.7 [facility] Comment on above: Performed By: #### C BC #### [facility] [address] [address] [address] Ayush Sorto Eosinophils/100 WBC (Bld) 1.3 % Normal 0.9-7.0 [facility] Comment on above: Performed By: #### C BC #### [facility] [address] [place] [address] Dr. Ayush Sorto Erythrocyte distribution width (RBC) [Ratio] 12.8 % Normal 11.0-15.0 [facility] Comment on above: Performed By: #### C BC #### [facility] [address] [place] [address] Dr. Ayush Sorto Hematocrit (Bld) [Volume fraction] 48.5 % Normal 42.0-54.0 [facility] Comment on above: Performed By: #### C BC #### [facility] [address] [place] [address] Dr. Ayush Sorto Hemoglobin (Bld) [Mass/Vol] 16.2 g/dL Normal 14.0-18.0 [facility] Comment on above: Performed By: #### C BC #### [facility] [address] [place] [address] Dr. Ayush Sorto IG # 0.01 10e3/ul Normal 0.00-0.03 [facility] Comment on above: Performed By: #### C BC #### [facility] [address] [place] [address] Dr. Ayush Sorto IG % 0.2 % Normal 0.0-0.5 [facility] Comment on above: Performed By: #### C BC #### [facility] [address] [place] [address] Dr. Ayush Sorto LYMPH # 1.0 103/ul Critically low 1.2-3.8 [facility] Comment on above: Performed By: #### C BC #### [facility] [address] [place] [address] Dr. Ayush Sorto Lymphocytes/100 WBC (Bld) 15.6 % Critically low 20.5-60.0 [facility] Comment on above: Performed By: #### C BC #### [facility] [address] [place] [address] Dr. Ayush Sorto MANUAL DIFF REQ NO Normal [facility] Comment on above: Performed By: #### C BC #### [facility] [address] [address] [address] Ayush Sorto MCH (RBC) [Entitic mass] 30.5 pg Normal 25.9-34.0 [facility] Comment on above: Performed By: #### C BC #### [facility] [address] [place] [address] Dr. Ayush Sorto MCHC (RBC) [Mass/Vol] 33.4 g/dL Normal 29.9-35.2 [facility] Comment on above: Performed By: #### C BC #### [facility] [address] [place] [address] Dr. Ayush Sorto MCV (RBC) [Entitic vol] 91.3 fL Normal 80.0-94.0 [facility] Comment on above: Performed By: #### C BC #### [facility] [address] [place] [address] Dr. Ayush Sorto MONO # 0.6 103/ul Normal 0.3-0.8 [facility] Comment on above: Performed By: #### C BC #### [facility] [address] [place] [address] Dr. Ayush Sorto Monocytes/100 WBC (Bld) 9.2 % Normal 1.7-12.0 [facility] Comment on above: Performed By: #### C BC #### [facility] [address] [place] [address] Dr. Ayush Sorto NEUT # 4.5 103/ul Normal 1.4-6.5 [facility] Comment on above: Performed By: #### C BC #### [facility] [address] [place] [address] Dr. Ayush Sorto Neutrophils/100 WBC (Bld) 72.9 % Normal 43.0-75.0 [facility] Comment on above: Performed By: #### C BC #### [facility] [address] [place] [address] Dr. Ayush Sorto Platelet mean volume (Bld) [Entitic vol] 8.9 fL Critically low 9.5-13.5 [facility] Comment on above: Performed By: #### C BC #### [facility] [address] [address] [address] Ayush Sorto PLT 226 103/ul Normal 150-450 [facility] Comment on above: Performed By: #### C BC #### [facility] [address] [address] [address] Ayush Sorto RBC 5.31 106/ul Normal 4.70-6.10 [facility] Comment on above: Performed By: #### C BC #### [facility] [address] [address] [address] Ayush Sorto WBC 6.2 103/ul Normal 4.0-11.0 [facility] Comment on above: Performed By: #### C BC #### [facility] [address] [place] [address] Dr. Ayush Sorto LIPID PROFILEon 09-10-2022 CHOL-HDL RATIO NORM SEE BELOW Normal [facility] Comment on above: Result Comment: 3.3 - 4.4 LOW RISK 4.4 - 7.1 AVERAGE RISK 7.1 - 11.0 MODERATE RISK >11.0 HIGH RISK Performed By: #### T 7, URIC, TSH, CMP, LIPID #### [facility] [address] [place] [address] Dr. Ayush Sorto Cholesterol [Mass/Vol] 206 mg/dL Critically high <=200 [facility] Comment on above: Performed By: #### T 7, URIC, TSH, CMP, LIPID #### [facility] [address] [address] [address] Ayush Sorto Cholesterol in HDL [Mass/Vol] 73 mg/dL Critically high 40-60 [facility] Comment on above: Performed By: #### T 7, URIC, TSH, CMP, LIPID #### [facility] [address] [place] [address] Dr. Ayush Sorto Cholesterol in LDL [Mass/Vol] 123.2 mg/dL Normal [facility] Comment on above: Performed By: #### T 7, URIC, TSH, CMP, LIPID #### [facility] [address] [address] [address] Ayush Sorto Cholesterol.total/C holesterol in HDL [Mass ratio] 2.8 {ratio} Normal [facility] Comment on above: Performed By: #### T 7, URIC, TSH, CMP, LIPID #### [facility] [address] [address] [address] Ayush Sorto HDL NORMAL > or = 60 mg/dl - LO W CARDIOVASCULAR RISK <40 mg/dl - HIGH CARDIOVASCULAR RISK Normal [facility] Comment on above: Performed By: #### T 7, URIC, TSH, CMP, LIPID #### [facility] [address] [address] [address] Ayush Sorto LDL CALC NORMAL SEE BELOW Normal [facility] Comment on above: Result Comment: <100 mg/dl OPTIMAL 100 - 129 mg/dl NEAR OR ABOVE OPTIMAL 130 - 159 mg/dl BORDERLINE HIGH 160 - 189 mg/dl HIGH >190 mg/dl VERY HIGH Performed By: #### T 7, URIC, TSH, CMP, LIPID #### [facility] [address] [address] [address] Ayush Sorto Triglyceride [Mass/Vol] 49 mg/dL Normal <=150 [facility] Comment on above: Performed By: #### T 7, URIC, TSH, CMP, LIPID #### [facility] [address] [address] [address] Ayush Sorot VLDL CALC 9.8 mg/dL Normal [facility] Comment on above: Performed By: #### T 7, URIC, TSH, CMP, LIPID #### [facility] [address] [place] [address] Dr. Ayush Sorto PROF 14(COMP METB)on 022 Albumin [Mass/Vol] 4.0 g/dL Normal 3.4-5.0 [facility] Comment on above: Performed By: #### T 7, URIC, TSH, CMP, LIPID #### [facility] [address] [place] [address] Dr. Ayush Sorto Albumin/Globulin [Mass ratio] 1.2 {ratio} Normal [facility] Comment on above: Performed By: #### T 7, URIC, TSH, CMP, LIPID #### [facility] [address] [place] [address] Dr. Ayush Sorto ALP [Catalytic activity/Vol] 83 U/L Normal 46-116 [facility] Comment on above: Performed By: #### T 7, URIC, TSH, CMP, LIPID #### [facility] [address] [place] [address] Dr. Ayush Sorto ALT [Catalytic activity/Vol] 35 U/L Normal 16-63 [facility] Comment on above: Performed By: #### T 7, URIC, TSH, CMP, LIPID #### [facility] [address] [place] [address] Dr. Ayush Sorto Anion gap [Moles/Vol] 9.0 mmol/L Normal [facility] Comment on above: Performed By: #### T 7, URIC, TSH, CMP, LIPID #### [facility] [address] [place] [address] Dr. Ayush Sorto AST [Catalytic activity/Vol] 26 U/L Normal 15-37 [facility] Comment on above: Performed By: #### T 7, URIC, TSH, CMP, LIPID #### [facility] [address] [place] [address] Dr. Ayush Sorto Bilirubin [Mass/Vol] 1.0 mg/dL Normal 0.2-1.0 [facility] Comment on above: Performed By: #### T 7, URIC, TSH, CMP, LIPID #### [facility] [address] [place] [address] Dr. Ayush Sorto Calcium [Mass/Vol] 9.5 mg/dL Normal 8.5-10.1 [facility] Comment on above: Performed By: #### T 7, URIC, TSH, CMP, LIPID #### [facility] [address] [place] [address] Dr. Ayush Sorto Chloride [Moles/Vol] 105 mmol/L Normal 98-107 [facility] Comment on above: Performed By: #### T 7, URIC, TSH, CMP, LIPID #### [facility] [address] [place] [address] Dr. Ayush Sorto CO2 [Moles/Vol] 27.7 mmol/L Normal 21.0-32.0 [facility] Comment on above: Performed By: #### T 7, URIC, TSH, CMP, LIPID #### [facility] [address] [place] [address] Dr. Ayush Sorto Creatinine [Mass/Vol] 0.90 mg/dL Normal 0.70-1.30 [facility] Comment on above: Performed By: #### T 7, URIC, TSH, CMP, LIPID #### [facility] [address] [place] [address] Dr. Ayush Sorto EGFR-AF MACANESE >60 Normal >=60 [facility] Comment on above: Performed By: #### T 7, URIC, TSH, CMP, LIPID #### [facility] [address] [place] [address] Dr. Ayush Sorto EGFR-NON AF MACANESE >60 Normal >=60 [facility] Comment on above: Performed By: #### T 7, URIC, TSH, CMP, LIPID #### [facility] [address] [place] [address] Dr. Ayush Sorto Globulin (S) [Mass/Vol] 3.3 g/dL Normal [facility] Comment on above: Performed By: #### T 7, URIC, TSH, CMP, LIPID #### [facility] [address] [place] [address] Dr. Ayush Sorto Glucose [Mass/Vol] 105 mg/dL Normal 74-106 [facility] Comment on above: Performed By: #### T 7, URIC, TSH, CMP, LIPID #### [facility] [address] [place] [address] Dr. Ayush Sorto Potassium [Moles/Vol] 4.7 mmol/L Normal 3.5-5.1 [facility] Comment on above: Performed By: #### T 7, URIC, TSH, CMP, LIPID #### [facility] [address] [place] [address] Dr. Ayush Sorto Protein [Mass/Vol] 7.3 g/dL Normal 6.4-8.2 [facility] Comment on above: Performed By: #### T 7, URIC, TSH, CMP, LIPID #### [facility] [address] [address] [address] Ayush Sorto Sodium [Moles/Vol] 137 mmol/L Normal 136-145 [facility] Comment on above: Performed By: #### T 7, URIC, TSH, CMP, LIPID #### [facility] [address] [address] [address] Ayush Sorto Urea nitrogen [Mass/Vol] 19.0 mg/dL Critically high 7.0-18.0 [facility] Comment on above: Performed By: #### T 7, URIC, TSH, CMP, LIPID #### [facility] [address] [address] [address] Ayush Sorto Urea nitrogen/Creatinine [Mass ratio] 21.1 mg/mg Normal [facility] Comment on above: Performed By: #### T 7, URIC, TSH, CMP, LIPID #### [facility] [address] [address] [address] Ayush Sorto BASIC METABOLIC PANELon 10-2 Calcium mass conc 9.3 mg/dL Normal 8.6-10.3 [facility] Comment on above: Order Comment: No: D o not add to previous draw Performed By: #### 0 0121, 25521, 77277 ####[facility] [facility] [place] [address], [facility] Chloride molar conc 102 mmol/L Normal 98-107 [facility] Comment on above: Order Comment: No: D o not add to previous draw Performed By: #### 0 0121, 26239, 62855 ####[facility] [address], [place] CO2 molar conc 27 mmol/L Normal 21-31 [facility] Comment on above: Order Comment: No: D o not add to previous draw Performed By: #### 0 0121, 12865, 00371 ####[facility] [place] [address], [place] Creatinine mass conc 0.73 mg/dL Normal 0.70-1.30 [facility] Comment on above: Order Comment: No: D o not add to previous draw Performed By: #### 0 0121, 91516, 74160 ####[facility] [id number], [facility] GFR/1.73 sq M predicted among blacks MDRD vol rate/area (S/P/Bld) mL/min/{1.73_m2} Normal >60 [facility] Comment on above: Order Comment: No: D o not add to previous draw Performed By: #### 0 0121, 20285, 99748 ####[facility] [place] [address], [facility] GFR/1.73 sq M predicted among non-blacks MDRD vol rate/area (S/P/Bld) mL/min/{1.73_m2} Normal >60 [facility] Comment on above: Order Comment: No: D o not add to previous draw Performed By: #### 0 0121, 15563, 47070 ####[facility] [address], [facility] Glucose mass conc 109 mg/dL High 70-100 [facility] Comment on above: Order Comment: No: D o not add to previous draw Performed By: #### 0 0121, 06623, 54279 ####[facility] [address], [facility] Potassium molar conc 4.1 mmol/L Normal 3.5-5.1 [facility] Comment on above: Order Comment: No: D o not add to previous draw Performed By: #### 0 0121, 61148, 26495 ####[facility] [address], [place] Sodium molar conc 136 mmol/L Normal 136-145 [facility] Comment on above: Order Comment: No: D o not add to previous draw Performed By: #### 0 0121, 50428, 20916 ####[facility] Urea nitrogen mass conc 10 mg/dL Normal 7-25 [facility] Comment on above: Order Comment: No: D o not add to previous draw Performed By: #### 0 0121, 31628, 79033 ####[facility] CBC COMPLETE BLOOD COUNTon Erythrocyte distribution width Auto Ratio (RBC) 12.8 % Normal 11.5-15.0 [facility] Comment on above: Order Comment: No: D o not add to previous draw Performed By: #### 0 0121, 77995, 63500 ####[facility] Hematocrit Auto Volume Fraction (Bld) 45.7 % Normal 39.0-50.0 [facility] Comment on above: Order Comment: No: D o not add to previous draw Performed By: #### 0 0121, 51180, 92624 ####[facility] Hemoglobin mass conc (Bld) 15.6 g/dL Normal 13.0-17.0 [facility] Comment on above: Order Comment: No: D o not add to previous draw Performed By: #### 0 0121, 41190, 64103 ####[facility] [address], [facility] MCH Auto Entitic mass (RBC) 30.4 pg Normal 27.0-33.0 [facility] Comment on above: Order Comment: No: D o not add to previous draw Performed By: #### 0 0121, 60239, 71015 ####[facility] [address], [facility] MCHC Auto mass conc (RBC) 34.1 g/dL Normal 32.0-35.0 [facility] Comment on above: Order Comment: No: D o not add to previous draw Performed By: #### 0 0121, 90552, 68316 ####[facility] MCV Auto Entitic volume (RBC) 89.1 fL Normal 82.0-98.0 [facility] Comment on above: Order Comment: No: D o not add to previous draw Performed By: #### 0 0121, 70178, 61067 ####[facility] Nucleated RBC/100 WBC Ratio (Bld) 0 % Normal 0-0 [facility] Comment on above: Order Comment: No: D o not add to previous draw Performed By: #### 0 0121, 45143, 65298 ####[facility] PLAT CNT 218 10*3/uL Normal 150-400 [facility] Comment on above: Order Comment: No: D o not add to previous draw Performed By: #### 0 0121, 56208, 05193 ####[facility] RBC Auto #/vol (Bld) 5.13 10*6/uL Normal 4.20-5.70 [facility] Comment on above: Order Comment: No: D o not add to previous draw Performed By: #### 0 0121, 43901, 22125 ####[facility] WBC Auto #/vol (Bld) 6.96 10*3/uL Normal 4.00-10.60 [facility] Comment on above: Order Comment: No: D o not add to previous draw Performed By: #### 0 0121, 26385, 56293 ####[facility] Cardiovascular Lab Reporton 09-14-2018 Cardiovascular Lab Report [facility] MR #: [id number] Physician: Lizette Montano M.D.Medicine Service Date: 09/13/2018Division of Birthdate: 1960Cardiology Room #: [facility] [id number] [facility] [address] [address] Cardiovascular Laboratory ReportPROCEDURE: Transesophageal echocardiogram and cardioversion.INDICATION: Atrial fibrillation.FELLOW: Tanya Botello M.D.PROCEDURE IN DETAIL: An informed consent was obtained from the patientafter explaining indications, risks, and benefits, and alternatives. Thepatient understood and agreed and signed the consent form. The patient wasbrought to the electronic lab technician and MOJGAN was performed under conscious sedation. Thepatient obtained a total of 10 mg of Versed and 100 mcg of fentanyl duringthe procedure. The transesophageal echocardiogram did not show anythrombus in the left atrial appendage. Full MOJGAN report is [facility]. After the transesophageal echocardiogram, synchronized biphasiccardioversion was done with 300 joules of energy. The patient successfullyconverted to sinus rhythm as evidenced by the EKG done postprocedure. Nocomplications throughout the procedure.Electronically Signed by:Lizette Haines M.D. 09/19/2018 08:34 P Lizette Haines M.D. I was present for the entire procedure. Date Dict: 09/13/2018/11:49 A/Al Brownlee Trans: 09/14/2018 06:55 A/Marguerite_JN:[id number]: Kacy Jacobson M.D. [address] [facility] [address] Yury Funez M.D. [address] [facility] [address] [address] Normal [facility] APTTon 09-13-2018 aPTT Coag time (Bld) 86.4 s Critically high 25.0-35.0 [facility] Comment on above: Order Comment: [...] PRESENCEOF HEPARIN. Performed By: #### 0 0121, 58998, 52586 ####[facility] [facility].[address] aPTT Coag time (Bld) 41.4 s High 25.0-35.0 [facility] Comment on above: Result Comment: [...] THIS PURPOSE. Performed By: #### 0 0121, 89382, 79921 ####[facility] [facility].[address] UFH HEPARIN ASSAYon 09-13-20 18 UNFRACTIONATED HEPARIN 0.64 IU/mL Normal 0.30-0.70 [facility] Comment on above: Result Comment: [place] roxaban and Apixaban will interfere with the anti Xa assay used tomonitor UFH and LMWH. Performed By: #### 0 0121, 43944, 50642 ####[facility] [facility] [place] [address], [facility] UNFRACTIONATED HEPARIN 0.25 IU/mL Low 0.30-0.70 [facility] Comment on above: Result Comment: [place] roxaban and Apixaban will interfere with the anti Xa assay used tomonitor UFH and LMWH. Performed By: #### 0 0121, 05042, 39347 ####[facility] [place] [address], [facility] BASIC METABOLIC PANELon 10-2 Calcium mass conc 8.6 mg/dL Normal 8.6-10.3 [facility] Comment on above: Order Comment: No: D o not add to previous draw Performed By: #### 0 0121, 98271, 59070 ####[facility] [facility] [address], [facility] Chloride molar conc 106 mmol/L Normal 98-107 [facility] Comment on above: Order Comment: No: D o not add to previous draw Performed By: #### 0 0121, 97448, 27706 ####[facility] [address], [facility] CO2 molar conc 25 mmol/L Normal 21-31 [facility] Comment on above: Order Comment: No: D o not add to previous draw Performed By: #### 0 0121, 80428, 80632 ####[facility] [place] [address], [facility] Creatinine mass conc 0.64 mg/dL Low 0.70-1.30 [facility] Comment on above: Order Comment: No: D o not add to previous draw Performed By: #### 0 0121, 90141, 66154 ####[facility] [place] [address], [facility] GFR/1.73 sq M predicted among blacks MDRD vol rate/area (S/P/Bld) mL/min/{1.73_m2} Normal >60 [facility] Comment on above: Order Comment: No: D o not add to previous draw Performed By: #### 0 0121, 46754, 56227 ####[facility] [facility] [address], [facility] GFR/1.73 sq M predicted among non-blacks MDRD vol rate/area (S/P/Bld) mL/min/{1.73_m2} Normal >60 [facility] Comment on above: Order Comment: No: D o not add to previous draw Performed By: #### 0 0121, 46717, 25812 ####[facility] Glucose mass conc 100 mg/dL Normal 70-100 [facility] Comment on above: Order Comment: No: D o not add to previous draw Performed By: #### 0 0121, 43699, 77286 ####[facility] [facility].[address] Potassium molar conc 4.0 mmol/L Normal 3.5-5.1 [facility] Comment on above: Order Comment: No: D o not add to previous draw Performed By: #### 0 0121, 48520, 53512 ####[facility] [facility] [address], [facility] Sodium molar conc 137 mmol/L Normal 136-145 [facility] Comment on above: Order Comment: No: D o not add to previous draw Performed By: #### 0 0121, 41724, 56613 ####[facility] [facility] [address], [facility] Urea nitrogen mass conc 14 mg/dL Normal 7-25 [facility] Comment on above: Order Comment: No: D o not add to previous draw Performed By: #### 0 0121, 26861, 34290 ####[facility] [place] [address], [facility] CBC W/DIFFon 09-12-2018 ABS BASOPHILS 0.0 10*3/uL Normal 0.0-0.2 [facility] Comment on above: Order Comment: No: D o not add to previous draw Performed By: #### 0 0121, 52639, 96814 ####[facility] [facility].[address] ABS IMM GRANS 0.0 10*3/uL Normal 0.0-0.2 [facility] Comment on above: Order Comment: No: D o not add to previous draw Performed By: #### 0 0121, 76430, 74067 ####[facility] [facility] [place] [address], [facility] ABS NEUTROPHILS 3.1 10*3/uL Normal 1.6-7.6 [facility] Comment on above: Order Comment: No: D o not add to previous draw Performed By: #### 0 0121, 05374, 87359 ####[facility] [facility].[address] Basophils Auto #/vol (Bld) 0.7 % Normal 0.0-1.0 [facility] Comment on above: Order Comment: No: D o not add to previous draw Performed By: #### 0 0121, 92867, 54156 ####[facility] [facility].[address] Eosinophils Auto #/vol (Bld) 0.2 10*3/uL Normal 0.0-0.5 [facility] Comment on above: Order Comment: No: D o not add to previous draw Performed By: #### 0 0121, 71907, 88696 ####[facility] [facility] [place] [address], [facility] Eosinophils/100 WBC Auto (Bld) 3.6 % Normal 0.0-6.0 [facility] Comment on above: Order Comment: No: D o not add to previous draw Performed By: #### 0 0121, 55320, 40199 ####[facility] Erythrocyte distribution width Auto Ratio (RBC) 12.7 % Normal 11.5-15.0 [facility] Comment on above: Order Comment: No: D o not add to previous draw Performed By: #### 0 0121, 12790, 75655 ####[facility] Hematocrit Auto Volume Fraction (Bld) 45.5 % Normal 39.0-50.0 [facility] Comment on above: Order Comment: No: D o not add to previous draw Performed By: #### 0 0121, 50452, 38440 ####[facility] Hemoglobin mass conc (Bld) 15.2 g/dL Normal 13.0-17.0 [facility] Comment on above: Order Comment: No: D o not add to previous draw Performed By: #### 0 0121, 82860, 13644 ####[facility] IMMATURE GRANS 0.4 % Normal 0.0-1.0 [facility] Comment on above: Order Comment: No: D o not add to previous draw Performed By: #### 0 0121, 33024, 68305 ####[facility] Lymphocytes Auto #/vol (Bld) 1.5 10*3/uL Normal 1.2-4.0 [facility] Comment on above: Order Comment: No: D o not add to previous draw Performed By: #### 0 0121, 17705, 07933 ####[facility] Lymphocytes/100 WBC Auto (Bld) 27.8 % Normal 20.0-45.0 [facility] Comment on above: Order Comment: No: D o not add to previous draw Performed By: #### 0 0121, 53896, 92708 ####[facility] MCH Auto Entitic mass (RBC) 30.0 pg Normal 27.0-33.0 [facility] Comment on above: Order Comment: No: D o not add to previous draw Performed By: #### 0 0121, 86546, 93924 ####[facility] MCHC Auto mass conc (RBC) 33.4 g/dL Normal 32.0-35.0 [facility] Comment on above: Order Comment: No: D o not add to previous draw Performed By: #### 0 0121, 84796, 82386 ####[facility] [facility] MCV Auto Entitic volume (RBC) 89.9 fL Normal 82.0-98.0 [facility] Comment on above: Order Comment: No: D o not add to previous draw Performed By: #### 0 0121, , 33515 ####[facility] [facility] Monocytes Auto #/vol (Bld) 0.6 10*3/uL Normal 0.1-1.0 [facility] Comment on above: Order Comment: No: D o not add to previous draw Performed By: #### 0 0121, 60602, 79056 ####[facility] MONOS 11.4 % Normal 5.0-12.0 [facility] Comment on above: Order Comment: No: D o not add to previous draw Performed By: #### 0 0121, 81786, 02917 ####[facility] Neutrophils/100 WBC Auto (Bld) 56.1 % Normal 40.0-72.0 [facility] Comment on above: Order Comment: No: D o not add to previous draw Performed By: #### 0 0121, 45412, 94198 ####[facility] [facility].[address] Nucleated RBC/100 WBC Ratio (Bld) 0 % Normal 0-0 [facility] Comment on above: Order Comment: No: D o not add to previous draw Performed By: #### 0 0121, 04707, 28057 ####[facility]3000 [facility].[address] PLAT CNT 188 10*3/uL Normal 150-400 [facility] Comment on above: Order Comment: No: D o not add to previous draw Performed By: #### 0 0121, 61787, 40186 ####[facility]3000 [facility].[address] RBC Auto #/vol (Bld) 5.06 10*6/uL Normal 4.20-5.70 [facility] Comment on above: Order Comment: No: D o not add to previous draw Performed By: #### 0 0121, 57156, 49601 ####[facility] WBC Auto #/vol (Bld) 5.54 10*3/uL Normal 4.00-10.60 [facility] Comment on above: Order Comment: No: D o not add to previous draw Performed By: #### 0 0121, 77322, 23702 ####[facility] MAGNESIUM BLOODon 09-12-2018 Magnesium mass conc 1.9 mg/dL Normal 1.9-2.7 [facility] Comment on above: Order Comment: No: D o not add to previous draw Performed By: #### 0 0121, 84993, 69915 ####[facility] [facility] UFH HEPARIN ASSAYon 09-12-20 UNFRACTIONATED HEPARIN 0.26 IU/mL Low 0.30-0.70 [facility] Comment on above: Result Comment: [place] roxaban and Apixaban will interfere with the anti Xa assay used tomonitor UFH and LMWH. Performed By: #### 0 0121, 97649, 44963 ####[facility] UNFRACTIONATED HEPARIN 0.72 IU/mL High 0.30-0.70 [facility] Comment on above: Result Comment: [place] roxaban and Apixaban will interfere with the anti Xa assay used tomonitor UFH and LMWH. Performed By: #### 0 0121, 26349, 79619 ####[place] [id number] [facility].[address] UNFRACTIONATED HEPARIN 0.49 IU/mL Normal 0.30-0.70 [facility] Comment on above: Result Comment: [place] roxaban and Apixaban will interfere with the anti Xa assay used tomonitor UFH and LMWH. Performed By: #### 0 0121, 74021, 00140 ####[facility]3000 [facility].[address] APTTon 09-11-2018 aPTT Coag time (Bld) 101.0 s Critically high 25.0-35.0 [facility] Comment on above: Order Comment: [...] RNAT 615 Performed By: #### 0 0121, 95855, 01347 ####[facility] [address], [facility] BASIC METABOLIC PANELon 10-2 Calcium mass conc 8.9 mg/dL Normal 8.6-10.3 [facility] Comment on above: Order Comment: No: D o not add to previous draw Performed By: #### 0 0121, 61645, 85475 ####[facility] [address], [facility] Chloride molar conc 106 mmol/L Normal 98-107 [facility] Comment on above: Order Comment: No: D o not add to previous draw Performed By: #### 0 0121, 96548, 17640 ####[facility] [address], [facility] CO2 molar conc 25 mmol/L Normal 21-31 [facility] Comment on above: Order Comment: No: D o not add to previous draw Performed By: #### 0 0121, 18064, 85749 ####[facility] [address], [facility] Creatinine mass conc 0.84 mg/dL Normal 0.70-1.30 [facility] Comment on above: Order Comment: No: D o not add to previous draw Performed By: #### 0 0121, 03134, 15742 ####[facility] [address], [place] GFR/1.73 sq M predicted among blacks MDRD vol rate/area (S/P/Bld) mL/min/{1.73_m2} Normal >60 [facility] Comment on above: Order Comment: No: D o not add to previous draw Performed By: #### 0 0121, 47157, 30141 ####[facility] [address], [place] GFR/1.73 sq M predicted among non-blacks MDRD vol rate/area (S/P/Bld) mL/min/{1.73_m2} Normal >60 [facility] Comment on above: Order Comment: No: D o not add to previous draw Performed By: #### 0 0121, 29402, 67189 ####[facility] [address], [facility] Glucose mass conc 103 mg/dL High 70-100 [facility] Comment on above: Order Comment: No: D o not add to previous draw Performed By: #### 0 0121, 03820, 16692 ####[facility] [address], [facility] Potassium molar conc 4.0 mmol/L Normal 3.5-5.1 [facility] Comment on above: Order Comment: No: D o not add to previous draw Performed By: #### 0 0121, 65491, 19734 ####[facility] [address], [facility] Sodium molar conc 138 mmol/L Normal 136-145 [facility] Comment on above: Order Comment: No: D o not add to previous draw Performed By: #### 0 0121, 76146, 43685 ####[facility] [address], [facility] Urea nitrogen mass conc 20 mg/dL Normal 7-25 [facility] Comment on above: Order Comment: No: D o not add to previous draw Performed By: #### 0 0121, 80639, 82713 ####[facility] [address], [facility] CBC W/DIFFon 09-11-2018 ABS BASOPHILS 0.0 10*3/uL Normal 0.0-0.2 [facility] Comment on above: Order Comment: No: D o not add to previous draw Performed By: #### 5 0103 ####[facility] [address], [facility] ABS IMM GRANS 0.0 10*3/uL Normal 0.0-0.2 [facility] Comment on above: Order Comment: No: D o not add to previous draw Performed By: #### 5 0103 ####[facility] ABS NEUTROPHILS 3.1 10*3/uL Normal 1.6-7.6 [facility] Comment on above: Order Comment: No: D o not add to previous draw Performed By: #### 5 0103 ####[facility]3000 [facility].[address] Basophils Auto #/vol (Bld) 0.8 % Normal 0.0-1.0 [facility] Comment on above: Order Comment: No: D o not add to previous draw Performed By: #### 5 0103 ####[facility]3000 [facility].[address] Eosinophils Auto #/vol (Bld) 0.2 10*3/uL Normal 0.0-0.5 [facility] Comment on above: Order Comment: No: D o not add to previous draw Performed By: #### 5 0103 ####[facility]3000 [facility].[address] Eosinophils/100 WBC Auto (Bld) 3.5 % Normal 0.0-6.0 [facility] Comment on above: Order Comment: No: D o not add to previous draw Performed By: #### 5 0103 ####[facility]3000 [facility].[address] Erythrocyte distribution width Auto Ratio (RBC) 12.8 % Normal 11.5-15.0 [facility] Comment on above: Order Comment: No: D o not add to previous draw Performed By: #### 5 3 ####[facility]3000 [facility].[address] Hematocrit Auto Volume Fraction (Bld) 45.3 % Normal 39.0-50.0 [facility] Comment on above: Order Comment: No: D o not add to previous draw Performed By: #### 5 0103 ####[facility]3000 [facility].[address] Hemoglobin mass conc (Bld) 15.3 g/dL Normal 13.0-17.0 [facility] Comment on above: Order Comment: No: D o not add to previous draw Performed By: #### 5 0103 ####[facility]3000 [facility].[address] IMMATURE GRANS 0.4 % Normal 0.0-1.0 [facility] Comment on above: Order Comment: No: D o not add to previous draw Performed By: #### 5 3 ####[facility]3000 [facility].[address] Lymphocytes Auto #/vol (Bld) 1.4 10*3/uL Normal 1.2-4.0 [facility] Comment on above: Order Comment: No: D o not add to previous draw Performed By: #### 5 0103 ####[facility]3000 [facility].[address] Lymphocytes/100 WBC Auto (Bld) 25.9 % Normal 20.0-45.0 [facility] Comment on above: Order Comment: No: D o not add to previous draw Performed By: #### 5 0103 ####[facility]3000 [facility].[address] MCH Auto Entitic mass (RBC) 30.5 pg Normal 27.0-33.0 [facility] Comment on above: Order Comment: No: D o not add to previous draw Performed By: #### 5 3 ####[facility]3000 [facility].[address] MCHC Auto mass conc (RBC) 33.8 g/dL Normal 32.0-35.0 [facility] Comment on above: Order Comment: No: D o not add to previous draw Performed By: #### 5 0103 ####[facility]3000 [facility].[address] MCV Auto Entitic volume (RBC) 90.2 fL Normal 82.0-98.0 [facility] Comment on above: Order Comment: No: D o not add to previous draw Performed By: #### 5 3 ####[facility]3000 [facility].[address] Monocytes Auto #/vol (Bld) 0.5 10*3/uL Normal 0.1-1.0 [facility] Comment on above: Order Comment: No: D o not add to previous draw Performed By: #### 5 3 ####[facility]3000 [facility].[address] MONOS 10.2 % Normal 5.0-12.0 [facility] Comment on above: Order Comment: No: D o not add to previous draw Performed By: #### 5 3 ####[facility]3000 [facility].[address] Neutrophils/100 WBC Auto (Bld) 59.2 % Normal 40.0-72.0 [facility] Comment on above: Order Comment: No: D o not add to previous draw Performed By: #### 5 3 ####[facility]3000 [facility].[address] Nucleated RBC/100 WBC Ratio (Bld) 0 % Normal 0-0 [facility] Comment on above: Order Comment: No: D o not add to previous draw Performed By: #### 5 3 ####[facility]3000 [facility] [place] [address], [facility] PLAT CNT 226 10*3/uL Normal 150-400 [facility] Comment on above: Order Comment: No: D o not add to previous draw Performed By: #### 5 0103 ####[facility] RBC Auto #/vol (Bld) 5.02 10*6/uL Normal 4.20-5.70 [facility] Comment on above: Order Comment: No: D o not add to previous draw Performed By: #### 5 0103 ####[facility]3000 [facility] [place] [address], [facility] WBC Auto #/vol (Bld) 5.21 10*3/uL Normal 4.00-10.60 [facility] Comment on above: Order Comment: No: D o not add to previous draw Performed By: #### 5 0103 ####[facility]3000 [facility].[address] MAGNESIUM BLOODon 09-11-2018 Magnesium mass conc 1.8 mg/dL Low 1.9-2.7 [facility] Comment on above: Order Comment: No: D o not add to previous draw Performed By: #### 0 0121, 62159, 89669 ####[facility]3000 [facility].[address] PHOSPHORUS BLOODon 8 Phosphate mass conc 3.0 mg/dL Normal 2.5-5.0 [facility] Comment on above: Order Comment: No: D o not add to previous draw Performed By: #### 0 0121, 16337, 44410 ####[facility]3000 [facility].[address] PROTHROMBIN TIMEon 8 INR Coag RelTime (PPP) 1.01 {INR} Normal 0.91-1.16 [facility] Comment on above: Order Comment: [...] OF ACTION, CLINICALEFFECTIVENESS, AND OPTIMAL THERAPEUTIC RANGE. [id number]. Performed By: #### 0 0121, 83431, 67691 ####[facility] Prothrombin time (PT) Coag time (PPP) 13.3 s Normal 12.3-14.8 [facility] Comment on above: Order Comment: No: D o not add to previous draw Result Comment: ALL RESULTS MUST BE INTERPRETED WITH RESPECT TO BLOOD DRAWING ARTIFACTOR DILUTION ERROR OF ANTICOAGULANT AT THE TIME OF SAMPLING. Performed By: #### 0 0121, 94846, 46666 ####[facility] TROPONIN-Ion 09-11-2018 Troponin I.cardiac mass conc 0.00 ng/mL Normal 0.00-0.04 [facility] Comment on above: Order Comment: No: D o not add to previous draw Result Comment: REFE RENCE RANGES: 0.00 - 0.14 ng/ml NEGATIVE 0.15 - 0.25 ng/ml INDETERMINATE > 0.25 ng/ml INDICATIVE OF AN M.I. Performed By: #### 3 4110 ####[facility] UFH HEPARIN ASSAYon 09-11-20 18 UNFRACTIONATED HEPARIN 0.40 IU/mL Normal 0.30-0.70 [facility] Comment on above: Result Comment: [place] roxaban and Apixaban will interfere with the anti Xa assay used tomonitor UFH and LMWH. Performed By: #### 0 0121, 43847, 68132 ####[facility] UNFRACTIONATED HEPARIN 0.39 IU/mL Normal 0.30-0.70 [facility] Comment on above: Result Comment: [place] roxaban and Apixaban will interfere with the anti Xa assay used tomonitor UFH and LMWH. Performed By: #### 0 0121, 20660, 01080 ####[facility] UNFRACTIONATED HEPARIN 0.70 IU/mL Normal 0.30-0.70 [facility] Comment on above: Result Comment: [place] roxaban and Apixaban will interfere with the anti Xa assay used tomonitor UFH and LMWH. Performed By: #### 0 0121, 19652, 93011 ####[facility] UNFRACTIONATED HEPARIN 0.49 IU/mL Normal 0.30-0.70 [facility] Comment on above: Result Comment: [place] roxaban and Apixaban will interfere with the anti Xa assay used tomonitor UFH and LMWH. Performed By: #### 3 0477 ####[facility] APTTon 09-10-2018 aPTT Coag time (Bld) 26.2 s Normal 25.0-35.0 [facility] Comment on above: Result Comment: [...] THIS PURPOSE. Performed By: #### 5 6101, 01048 ####[address] CBC W/DIFFon 09-10-2018 ABS BASOPHILS 0.0 10*3/uL Normal 0.0-0.2 [facility] Comment on above: Order Comment: No: D o not add to previous draw Performed By: #### 5 0103 ####[facility] ABS IMM GRANS 0.0 10*3/uL Normal 0.0-0.2 [facility] Comment on above: Order Comment: No: D o not add to previous draw Performed By: #### 5 0103 ####[address] ABS NEUTROPHILS 6.0 10*3/uL Normal 1.6-7.6 [facility] Comment on above: Order Comment: No: D o not add to previous draw Performed By: #### 5 0103 ####[address] Basophils Auto #/vol (Bld) 0.4 % Normal 0.0-1.0 [facility] Comment on above: Order Comment: No: D o not add to previous draw Performed By: #### 5 0103 ####[place] [id number] Eosinophils Auto #/vol (Bld) 0.1 10*3/uL Normal 0.0-0.5 [facility] Comment on above: Order Comment: No: D o not add to previous draw Performed By: #### 5 3 ####[address] Eosinophils/100 WBC Auto (Bld) 1.1 % Normal 0.0-6.0 [facility] Comment on above: Order Comment: No: D o not add to previous draw Performed By: #### 5 0103 ####[facility]3000 [facility].[address] Erythrocyte distribution width Auto Ratio (RBC) 12.5 % Normal 11.5-15.0 [facility] Comment on above: Order Comment: No: D o not add to previous draw Performed By: #### 5 0103 ####[facility] Hematocrit Auto Volume Fraction (Bld) 48.8 % Normal 39.0-50.0 [facility] Comment on above: Order Comment: No: D o not add to previous draw Performed By: #### 5 3 ####[facility] Hemoglobin mass conc (Bld) 16.6 g/dL Normal 13.0-17.0 [facility] Comment on above: Order Comment: No: D o not add to previous draw Performed By: #### 5 0103 ####[facility] IMMATURE GRANS 0.3 % Normal 0.0-1.0 [facility] Comment on above: Order Comment: No: D o not add to previous draw Performed By: #### 5 0103 ####[facility]3000 [facility].[address] Lymphocytes Auto #/vol (Bld) 1.2 10*3/uL Normal 1.2-4.0 [facility] Comment on above: Order Comment: No: D o not add to previous draw Performed By: #### 5 0103 ####[facility] Lymphocytes/100 WBC Auto (Bld) 14.7 % Low 20.0-45.0 [facility] Comment on above: Order Comment: No: D o not add to previous draw Performed By: #### 5 0103 ####[facility] MCH Auto Entitic mass (RBC) 30.3 pg Normal 27.0-33.0 [facility] Comment on above: Order Comment: No: D o not add to previous draw Performed By: #### 5 0103 ####[facility] MCHC Auto mass conc (RBC) 34.0 g/dL Normal 32.0-35.0 [facility] Comment on above: Order Comment: No: D o not add to previous draw Performed By: #### 5 3 ####[facility] MCV Auto Entitic volume (RBC) 89.2 fL Normal 82.0-98.0 [facility] Comment on above: Order Comment: No: D o not add to previous draw Performed By: #### 5 3 ####[facility] Monocytes Auto #/vol (Bld) 0.6 10*3/uL Normal 0.1-1.0 [facility] Comment on above: Order Comment: No: D o not add to previous draw Performed By: #### 5 3 ####[facility] MONOS 7.9 % Normal 5.0-12.0 [facility] Comment on above: Order Comment: No: D o not add to previous draw Performed By: #### 5 3 ####[facility] Neutrophils/100 WBC Auto (Bld) 75.6 % High 40.0-72.0 [facility] Comment on above: Order Comment: No: D o not add to previous draw Performed By: #### 5 0103 ####[facility]3000 [facility].[address] Nucleated RBC/100 WBC Ratio (Bld) 0 % Normal 0-0 [facility] Comment on above: Order Comment: No: D o not add to previous draw Performed By: #### 5 0103 ####[facility]3000 [facility] [place] [address], [facility] PLAT CNT 243 10*3/uL Normal 150-400 [facility] Comment on above: Order Comment: No: D o not add to previous draw Performed By: #### 5 0103 ####[facility]3000 [facility].[address] RBC Auto #/vol (Bld) 5.47 10*6/uL Normal 4.20-5.70 [facility] Comment on above: Order Comment: No: D o not add to previous draw Performed By: #### 5 0103 ####[facility]3000 [facility] [place] [address], [facility] WBC Auto #/vol (Bld) 7.87 10*3/uL Normal 4.00-10.60 [facility] Comment on above: Order Comment: No: D o not add to previous draw Performed By: #### 5 0103 ####[facility]3000 [facility].[address] COMP METABOLIC PANELon 09-10 Albumin mass conc 4.0 g/dL Normal 3.5-5.7 [facility] Comment on above: Order Comment: No: D o not add to previous draw Performed By: #### 0 0121, 21545, 85375 ####[facility]3000 [facility] [place] [address], [facility] ALKALINE PHOSPH 59 IU/L Normal 34-104 [facility] Comment on above: Order Comment: No: D o not add to previous draw Performed By: #### 0 0121, 78998, 05059 ####[facility] [address], [place] ALT enzyme act/vol 22 U/L Normal 7-52 [facility] Comment on above: Order Comment: No: D o not add to previous draw Performed By: #### 0 0121, 36865, 79718 ####[facility] [address], [place] AST enzyme act/vol 20 U/L Normal 13-39 [facility] Comment on above: Order Comment: No: D o not add to previous draw Performed By: #### 0 0121, 60958, 63384 ####[facility] [address], [place] Bilirubin mass conc 0.8 mg/dL Normal 0.3-1.0 [facility] Comment on above: Order Comment: No: D o not add to previous draw Performed By: #### 0 0121, 03867, 56567 ####[facility] [address], [place] Calcium mass conc 8.8 mg/dL Normal 8.6-10.3 [facility] Comment on above: Order Comment: No: D o not add to previous draw Performed By: #### 0 0121, 84640, 92439 ####[facility] [address], [place] Chloride molar conc 103 mmol/L Normal 98-107 [facility] Comment on above: Order Comment: No: D o not add to previous draw Performed By: #### 0 0121, 15222, 53104 ####[facility] [address], [place] CO2 molar conc 28 mmol/L Normal 21-31 [facility] Comment on above: Order Comment: No: D o not add to previous draw Performed By: #### 0 0121, 79053, 96511 ####[facility] [address], [facility] Creatinine mass conc 0.93 mg/dL Normal 0.70-1.30 [facility] Comment on above: Order Comment: No: D o not add to previous draw Performed By: #### 0 0121, 97338, 84049 ####[facility] [address], [facility] GFR/1.73 sq M predicted among blacks MDRD vol rate/area (S/P/Bld) mL/min/{1.73_m2} Normal >60 [facility] Comment on above: Order Comment: No: D o not add to previous draw Performed By: #### 0 0121, 89806, 93790 ####[facility] [facility] [address], [facility] GFR/1.73 sq M predicted among non-blacks MDRD vol rate/area (S/P/Bld) mL/min/{1.73_m2} Normal >60 [facility] Comment on above: Order Comment: No: D o not add to previous draw Performed By: #### 0 0121, 56789, 97439 ####[facility] [facility] [address], [facility] Glucose mass conc 94 mg/dL Normal 70-100 [facility] Comment on above: Order Comment: No: D o not add to previous draw Performed By: #### 0 0121, 03311, 12581 ####[facility] [facility] [address], [facility] Potassium molar conc 4.0 mmol/L Normal 3.5-5.1 [facility] Comment on above: Order Comment: No: D o not add to previous draw Performed By: #### 0 0121, 06008, 64779 ####[facility] Protein mass conc 6.8 g/dL Normal 6.0-8.3 [facility] Comment on above: Order Comment: No: D o not add to previous draw Performed By: #### 0 0121, [id number], [id number] ####[facility] Sodium molar conc 140 mmol/L Normal 136-145 [facility] Comment on above: Order Comment: No: D o not add to previous draw Performed By: #### 0 0121, [id number], [id number] ####[facility] Urea nitrogen mass conc 19 mg/dL Normal 7-25 [facility] Comment on above: Order Comment: No: D o not add to previous draw Performed By: #### 0 0121, [id number], [id number] ####[facility] PROTHROMBIN TIMEon 10-19-201 8 INR Coag RelTime (PPP) 0.93 {INR} Normal 0.91-1.16 [facility] Comment on above: Result Comment: ACCC P RECOMMENDED INR FOR WARFARIN THERAPY CONDITION INRPROPHYLAXIS OF VENOUS THROMBOSIS 2-3(HIGH-RISK SURGERY)TREATMENT OF VENOUS THROMBOSIS 2-3TREATMENT OF PULMONARY EMBOLISM 2-3PREVENTION OF SYSTEMIC EMBOLISM: 2-3 ACUTE MYOCARDIAL INFARCTION TISSUE HEART VALVES VALVULAR HEART DISEASE ATRIAL FIBRILLATION RECURRENT SYSTEMIC EMBOLISMMECHANICAL HEART VALVE 2.5-3.5 FROM: ORAL ANTICOAGULANTS. MECHANISM OF ACTION, CLINICALEFFECTIVENESS, AND OPTIMAL THERAPEUTIC RANGE. [id number];108:231S-246S. Performed By: #### 5 6101, [id number] ####[facility]3000 [facility].[address] Prothrombin time (PT) Coag time (PPP) 12.5 s Normal 12.3-14.8 [facility] Comment on above: Result Comment: ALL RESULTS MUST BE INTERPRETED WITH RESPECT TO BLOOD DRAWING ARTIFACTOR DILUTION ERROR OF ANTICOAGULANT AT THE TIME OF SAMPLING. Performed By: #### 5 6101, 06005 ####[facility]3000 [facility].[address] TROPONIN-Ion 09-10-2018 Troponin I.cardiac mass conc 0.00 ng/mL Normal 0.00-0.04 [facility] Comment on above: Order Comment: No: D o not add to previous draw Result Comment: REFE RENCE RANGES: 0.00 - 0.14 ng/ml NEGATIVE 0.15 - 0.25 ng/ml INDETERMINATE > 0.25 ng/ml INDICATIVE OF AN M.I. Performed By: #### 3 5200 ####[place] [id number] [facility].[address] Troponin I.cardiac mass conc 0.00 ng/mL Normal 0.00-0.04 [facility] Comment on above: Result Comment: REFE RENCE RANGES: 0.00 - 0.14 ng/ml NEGATIVE 0.15 - 0.25 ng/ml INDETERMINATE > 0.25 ng/ml INDICATIVE OF AN M.I. Performed By: #### 0 0121, 75719, 06258 ####[facility]3000 [facility] [place] [address], [facility] TSH3on 09-10-2018 TSH 3RD GENERATION 1.05 uIU/mL Normal 0.34-5.60 [facility] Comment on above: Performed By: #### 0 0121, 57633, 91219 ####[facility] Vital Signs Date Time Vital Sign Value Performing Clinician Shashanki kaveh 10-01-2023 08:20-0500 Body height 193.04 cm Sher Nahid Other [facility] [employer] Other 10-01-2023 08:20-0500 Body mass index (BMI) [Ratio] 27.75 kg/m2 Sher Nahid Other [facility] [employer] Other 10-01-2023 08:20-0500 Body weight 103.42 kg Sher Nahid Other [facility] [employer] Other 1960 23:00-0500 >na< Ellie Rodríguez Dept. of Dermato logy Encounters Encounter Date Encounter Type Care Provider Facility Start: 11-10-2023 End: 11-10-2023 ambulatory [facility] Start: 10-01-2023 Office outpatient ne w 30 minutes Sher [facility] Start: 10-01-2023 End: 10-01-2023 ambulatory Sher [facility]field Facility:[place] Start: 10-01-2023 End: 10-01-2023 ambulatory MD Kacy Jacobson Work Phone: [facility] Work Phone: Start: 10-01-2023 End: 10-01-2023 Patient encounter procedure MD Kacy Jacobson Work Phone: [facility] Work Phone: Start: 04-01-2023 End: 04-01-2023 ambulatory [facility] Start: 03-24-2023 Luke Reinoso Dept. of Dermatology [...] without abnormal findings DR KACY JACOBSON . [facility] Start: 01-22-2023 End: 01-23-[address] KACY JACOBSON . Facility:[facility] Start: 01-22-2023 End: 01-23-2023 Encounter for general adult medical examination without abnormal findings DR KACY JACOBSON . Facility:[facility] Start: 12-09-2022 End: 12-10-2022 ambulatory RENUAnna ZARCO Facility:[facility] Start: 10-27-2022 End: 10-28-2022 ambulatory RENU ZARCO Facility:[facility] Start: 10-08-2022 End: 10-09-2022 ambulatory RENU ZARCO Facility:[facility] Start: 09-24-2022 End: 09-25-2022 ambulatory RENU ZARCO Facility:[facility] Start: 09-10-2022 End: 09-11-2022 ambulatory RENU HAROLDO Facility:[facility] Start: 09-13-2018 End: 09-14-2018 Patient encounter procedure DEFAULT PHYSICIAN Facility:[facility] Start: 09-10-2018 End: 09-14-2018 Evaluation and management of inpatient HANI CHLOÉ Facility:[facility] Start: 08-25-2018 End: 08-26-2018 Patient encounter procedure DEFAULT PHYSICIAN Facility:[facility] Procedures Date Procedure Procedure Detail Performing Clinician Start: 10-01-2023 X-ray of lumbar spin e, six views including bending views MD Kacy Jacobson Work Phone: Start: 03-24-2023 Ellie arita Start: 03-18-2023 Mohs micrographic h/n/h/f/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 Ayush Sorto Start: 09-13-2018 [facility], Single LIZETTE V MOUKARBEL Immunizations Immunization Date Immunization Notes Care Provider Fa [facility] 1960 pneumococcal conjuga te vaccine, 7 valent Ellie Rodríguez Dept. of Dermatology Payers Date Payer Category Payer Self-pay 2006 Private Health Insurance [id number] 1960 Unknown [id number] 1960 Unknown [id number] 2.16.8 [id number] 1960 Unknown [id number] 2.16.8 40.1.441440.3.579.2.647 1959 Unknown [id number] 2.16.8 40.1.259678.3.579.2.647 1959 Unknown [id number] 2.16.84 0.1.321887.3.579.2.593 1959 Unknown [id number] 2.16.84 0.1.422077.3.579.2.593 1959 Unknown [id number] 2.16.84 0.1.452907.3.579.2.593 1959 Unknown [id number] 2.16.84 0.1.236646.3.579.2.593 1959 Unknown [id number] 2.16.84 0.1.422644.3.579.2.593 1959 Unknown [id number] 2.16.84 0.1.755484.3.579.2.593 1959 Unknown [id number] 2.16.84 0.1.045222.3.579.2.593 1959 Unknown [id number] 2.16. 840.1.378683.3.579.2.356 1959 Unknown [id number] 2.16. 840.1.996458.3.579.2.356 1959 Unknown [id number] 2.16. 840.1.052618.3.579.2.356 Unknown Unknown [id number] 2.16.8 40.1.988220.3.579.2.531 Social History Date Type Detail Facility Start: 03-02-2023 Dept. of D ermatology Start: 1960 End: 1960 Sex Assigned At Male [place] Sex Assigned At Sex Assigned At Bir th [place] [employer] Other Goals Date Patient Goal Desired Activity /State Clinical Notes 04-01-2023 to 11-10-2023 Note Date & Type Note Facility 11-10-2023 Note [facility] Consult Note Reason for visit: afib [...] history was recently cardioverted by me at [facility] to SR . He states no [...] rhonchi Cardiovascular Rat (more content not included)... [facility] 11-10-2023 Note Patient here for 6 m o follow up chronic afib. No recent labs or imaging. Denies chest pain, SOB, palpitations, lightheadedness/syncope, and bleeding on Xarelto. BP at home when checked averages around 120/80. Review of Systems Musculoskeletal: Positive for myalgias. All other systems reviewed and are negative. [facility] 10-01-2023 Evaluation note Encounter Date [...] Pain in left leg (ICD-10 - M79.605) [facility] Other [id number] Note-advised to maintian compliance with [facility]-BP controlled -ct medications: lisinopril 10mg every day, toprol tartrate 75mg bid, xarelto 20mg, aldactone 25mg qdUnJoint Township [facility]05-17-2023 Note [id number] 1 for htn, will ct xarelto -DCCV x3 with amio, still has afib controlled rate and known hx of slow VR int0 40bpm -surgical ablation was mentioned as an option for ablation vs PPM with AVN ablation, patient does not want to consider at this time -will have him follow up [place] [address] [facility] NotePatient here for 6 mo follow [...] myalgias. All other systems reviewed and are negative.[facility] 04-01-2023 NoteUT Electrophysiology Consult Note [...] history was recently cardioverted by me at [facility] to SR . He states no [...] Hematologic/Lymphatic Hematologic/Lymphatic no swoll (more content not included)...[facility] note[facility]/ADept. of Dermatology Evaluation noteNo assessment information available [facility] Work Phone: History general Narrative - Reported* Type Description Date Medical History heart disease Medical History melanoma Surgical History melanoma excision Hospitalization History see above [facility] Other reason for referral (narrative)* Name Reason [...] 2023 7:32am Hospital Course Note MR[id number] Admitted: 09/10/2018 Discharged: 09/14/2018 Date of : 1960 Physician: Primo Glaser MD DISCHARGE SUMMARYDISCHARGE ATTENDING PHYSICIAN: Primo Glaser [facility] PHYSICIAN: Dr. Jacobson at [phone].PRINCIPAL DIAGNOSIS: Atrial fibrillation/flutter, status post TEEconversion currently [...] section and content) DATE CREATED AUTHOR 10/23/2018 [facility] DATE CREATED AUTHOR AUTHOR'S ORGANIZ ATION 02/27/2023 [facility] DATE CREATED AUTHOR AUTHOR'S ORGANIZ ATION 03/25/2023 [facility] DATE CREATED AUTHOR AUTHOR'S ORGANIZ ATION 10/09/2023 [facility] DATE CREATED AUTHOR AUTHOR'S ORGANIZ ATION 11/18/2023 [facility] [place] Care Teams (unrecognized sec tion and content) [...] BE BASED ON THE PRIMARY CLINICAL RECORDS. [facility] [employer] [facility]. provides no warranty or guarantee of the accuracy or completeness of information in this document.
== END 2024-03-11 08:54 | disposition home or self-care (01) ==
LOC: CARD 08:54
PROVIDERS: PCP Family Medicine; Visit Provider Family Medicine
DX: I73.9 Peripheral vascular disease, unspecified (principal); M79.606 Pain in leg, unspecified
CPT/HCPCS: 93923

== ENCOUNTER 2024-04-22 07:31 | Outpatient (OUT) | payer OTHER, SELFPAY ==
--- OUTSIDE RECORDS SUMMARY | 2024-04-22 07:33 | XMS_ITS | CCD ---
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 Name Role Phone PHYSICIAN, DEFAULT Unavailable Unavailable PHYSICIAN, DEFAULT Unavailable Unavailable CHLOÉ, HANI Unavailable Unavailable YURY FUNEZ AM Unavailable Unavailable KACY JACOBSON Unavailable Unavailable RODOLFO, VERAS R Unavailable Unavailable DC Unavailable Unavailable UNKNOWN, PROVIDER Unavailable Unavailable PHYSICIAN, DEFAULT Unavailable Unavailable PHYSICIAN, DEFAULT Unavailable Unavailable KACY JACOBSON Unavailable Unavailable HAROLDO, RENU Consulting Unavailable HOY ., DR WOODRUFF Primary Care Unavailable HAROLDO, RENU Admitting Unavailable HAROLDO, RENU Attending Unavailable RENU ZARCO Attending Unavailable HAROLDO, RENU Consulting Unavailable HOY [...] HOY .DR WOODRUFF Primary Care Unavailable HOY .DR WOODRUFF Admitting Unavailable HOY ., DR WOODRUFF Attending Unavailable HOY ., DR WOODRUFF Consulting Unavailable HOY ., DR WOODRUFF Primary Care Unavailable HOY ., DR WOODRUFF Admitting Unavailable HOY ., DR WOODRUFF Attending Unavailable HOY ., DR WOODRUFF Consulting Unavailable ZIEBDR JO MATSON Consulting Unavailable Rodríguez, Ellie Unavailable Unavailable Luke Reinoso Unavailable Unavailable UNKNOWN, PCP Primary Care Unavailable Luke Reinoso Attending Unavailable UNKNOWN, UNKNOWN Referring Unavailable UNKNOWN, PCP [facility] Dr. 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] Onset: 09-10-2018 Episodic [...] Range Facility Office Visiton 11-10-2023 Follow-up visit [id number] Susanna Hogue D 1960 M Date Provider Department Center 11/10/2023 RANDY JOHNSTON BRITNEY Luis Family History Problem Relation Age of Onset Heart attack Maternal Grandfather Family Status - Relation Status Age at Maternal Grandfather Level of Service:74104 DC OFFICE/OUTPATIENT ESTABLISHED LOW MDM 20 MIN [facility] Orders Onlyon 11-10-2023 Orders Only [id number] Susanna Hogue D 1960 M Date Provider Department Center 11/10/2023 CRISTINO AYALA BRITNEY [facility] Family History Problem Relation Age of Onset Heart attack Maternal Grandfather Family Status - Relation Status Age at Maternal Grandfather [facility] XR lumbar spine 6V w bending on 10-01-2023 XR lumbar spine 6V w bending [facility] [place] [address] [place] [id number] XRay Report Signed Patient: Reece Hogue MR#: [id number] : 1960 Acct:[id number] Age/Sex: 63 / M ADM Date: 10/01/23 Loc: XD Room: Type: [facility] Attending Dr: Sher Whitfield MD Copies to: [...] Nila Christensen M.D.10/01/2023 12:35 PM Dictation Location: [place] [address] Transcribed By: [facility] 10/01/23 1235 Dictated By: Nila Christensen MD 10/01/23 1226 Signed By: 10/01/23 1235 [facility] Office Visiton 04-01-2023 Follow-up visit [id number] Susanna Hogue Dionicio 1960 M Date Provider Department Center 04/01/2023 Joseph-KATHE DE DIOS [facility] Family History Problem Relation Age of Onset Heart attack Maternal Grandfather Family Status - Relation Status Age at Maternal Grandfather Level of Service:18303 DC OFFICE/OUTPATIENT ESTABLISHED MOD MDM 30-39 MIN Reason for Visit and Comments: Atrial Fibrillation [80] Hypertension [003770] [facility] Dermatopathologyon 3 Dermatopathology Name: REECE HOGUE Pathologist: JAIMEE NEGRETE MD Date of Procedure: 02/24/2023 Date Received: 02/24/2023 Date Reported 02/25/2023 Submitting Physician: LUKE REINOSO MD, Location: [facility] Copy To/Referring/Attending: MD KAUR PERDOMO FINAL DIAGNOSIS 4 SLIDES, [facility], #[id number] (BX: 02/03/2023) SKIN, LEFT NASAL SIDEWALL, SHAVE [...] REPORT A. 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 Slide/Block Description 4 SLIDES, [id number]. Keep Slides: N Slides Returned: N Personal Consult: N Normal [facility] Comment on above: Performed By: #### [...] JO RUSSELL Date: 2023-02-18 14:29 Normal [facility] INSULINon 01-23-2023 Insulin 7.9 uIU/mL Normal 2.6-24.9 [facility] Comment on above: Performed By: #### T 7, URIC, TSH, CMP, LIPID #### [facility] [address] [address] [address] Ayush Sorto CBC AUTO DIFFon 01-22-2023 BASO # 0.0 103/ul Normal 0.0-0.1 [facility] Comment on above: Performed By: #### C BC #### [facility] [address] [address] [address] Ayush Sorto Basophils/100 WBC (Bld) 0.6 % Normal 0.2-2.0 [facility] Comment on above: Performed By: #### C BC #### [facility] [address] [place] [address] Dr. Ayush Sorto EO # 0.2 103/ul Normal 0.0-0.7 [facility] Comment on above: Performed By: #### C BC #### [facility] [address] [address] [address] Ayush Sorto Eosinophils/100 WBC (Bld) 2.3 % Normal 0.9-7.0 [facility] Comment on above: Performed By: #### C BC #### [facility] [address] [place] [address] Dr. Ayush Sorto Erythrocyte distribution width (RBC) [Ratio] 13.2 % Normal 11.0-15.0 [facility] Comment on above: Performed By: #### C BC #### [facility] [address] [place] [address] Dr. Ayush Sorto Hematocrit (Bld) [Volume fraction] 48.6 % Normal 42.0-54.0 [facility] Comment on above: Performed By: #### C BC #### [facility] [address] [place] [address] Dr. Ayush Sorto Hemoglobin (Bld) [Mass/Vol] 16.4 g/dL Normal 14.0-18.0 [facility] Comment on above: Performed By: #### C BC #### [facility] [address] [place] [address] Dr. Ayush Sorto IG # 0.02 10e3/ul Normal 0.00-0.03 [facility] Comment on above: Performed By: #### C BC #### [facility] [address] [place] [address] Dr. Ayush Sorto IG % 0.3 % Normal 0.0-0.5 [facility] Comment on above: Performed By: #### C BC #### [facility] [address] [place] [address] Dr. Ayush Sorto LYMPH # 1.6 103/ul Normal 1.2-3.8 [facility] Comment on above: Performed By: #### C BC #### [facility] [address] [place] [address] Dr. Ayush Sorto Lymphocytes/100 WBC (Bld) 24.7 % Normal 20.5-60.0 [facility] Comment on above: Performed By: #### C BC #### [facility] [address] [place] [address] Dr. Ayush Sorto MANUAL DIFF REQ NO Normal [facility] Comment on above: Performed By: #### C BC #### [facility] [address] [place] [address] Dr. Ayush Sorto MCH (RBC) [Entitic mass] 30.0 pg Normal 25.9-34.0 [facility] Comment on above: Performed By: #### C BC #### [facility] [address] [place] [address] Dr. Ayush Sorto MCHC (RBC) [Mass/Vol] 33.7 g/dL Normal 29.9-35.2 [facility] Comment on above: Performed By: #### C BC #### [facility] [address] [place] [address] Dr. Ayush Sorto MCV (RBC) [Entitic vol] 89.0 fL Normal 80.0-94.0 [facility] Comment on above: Performed By: #### C BC #### [facility] [address] [place] [address] Dr. Ayush Sorto MONO # 0.7 103/ul Normal 0.3-0.8 [facility] Comment on above: Performed By: #### C BC #### [facility] [address] [place] [address] Dr. Ayush Sorto Monocytes/100 WBC (Bld) 10.1 % Normal 1.7-12.0 [facility] Comment on above: Performed By: #### C BC #### [facility] [address] [place] [address] Dr. Ayush Sorto NEUT # 4.1 103/ul Normal 1.4-6.5 [facility] Comment on above: Performed By: #### C BC #### [facility] [address] [place] [address] Dr. Ayush Sorto Neutrophils/100 WBC (Bld) 62.0 % Normal 43.0-75.0 [facility] Comment on above: Performed By: #### C BC #### [facility] [address] [place] [address] Dr. Ayush Sorto Platelet mean volume (Bld) [Entitic vol] 8.6 fL Critically low 9.5-13.5 [facility] Comment on above: Performed By: #### C BC #### [facility] [address] [place] [address] Dr. Ayush Sorto PLT 248 103/ul Normal 150-450 [facility] Comment on above: Performed By: #### C BC #### [facility] [address] [place] [address] Dr. Ayush Sorto RBC 5.46 106/ul Normal 4.70-6.10 [facility] Comment on above: Performed By: #### C BC #### [facility] [address] [place] [address] Dr. Ayush Sorto WBC 6.6 103/ul Normal 4.0-11.0 [facility] Comment on above: Performed By: #### C BC #### [facility] [address] [place] [address] Dr. Ayush Sorto FREE THYROXINE INDEX T7on FTI 3.31 Normal 1.30-4.50 [facility] Comment on above: Performed By: #### T 7, URIC, TSH, CMP, LIPID #### [facility] [address] [place] [address] Dr. Ayush Sorto T3U 36.0 % Normal 33.0-40.0 [facility] Comment on above: Performed By: #### T 7, URIC, TSH, CMP, LIPID #### [facility] [address] [place] [address] Dr. Ayush Sorto T4 [Mass/Vol] 9.20 ug/dL Normal 4.50-12.10 [facility] Comment on above: Performed By: #### T 7, URIC, TSH, CMP, LIPID #### [facility] [address] [place] [address] Dr. Ayush Sorto GLYCOHEMOGLOBIN A1Con 2022 ADA RECOMMENDATION SEE BELOW Normal [facility] Comment on above: Result Comment: ADA RECOMMENDED LIMIT 4.0 - 6.0 ADA THERAPEUTIC TARGET < 7.0 ACTION SUGGESTED > 7.0 Performed By: #### T 7, URIC, TSH, CMP, LIPID #### [facility] [address] [place] [address] Dr. Ayush Sorto Glucose [Mass/Vol] 117 mg/dL Normal [facility] Comment on above: Performed By: #### T 7, URIC, TSH, CMP, LIPID #### [facility] [address] [address] [address] Ayush Sorto HbA1c (Bld) [Mass fraction] 5.7 % Normal 4.5-6.2 [facility] Comment on above: Performed By: #### T 7, URIC, TSH, CMP, LIPID #### [facility] [address] [address] [address] Ayush Sorto LIPID PROFILEon 01-22-2023 CHOL-HDL RATIO NORM SEE BELOW Normal [facility] Comment on above: Result Comment: 3.3 - 4.4 LOW RISK 4.4 - 7.1 AVERAGE RISK 7.1 - 11.0 MODERATE RISK >11.0 HIGH RISK Performed By: #### T 7, URIC, TSH, CMP, LIPID #### [facility] [address] [address] [address] Ayush Sorto Cholesterol [Mass/Vol] 216 mg/dL Critically high <=200 [facility] Comment on above: Performed By: #### T 7, URIC, TSH, CMP, LIPID #### [facility] [address] [address] [address] Ayush Sorto Cholesterol in HDL [Mass/Vol] 68 mg/dL Critically high 40-60 [facility] Comment on above: Performed By: #### T 7, URIC, TSH, CMP, LIPID #### [facility] [address] [address] [address] Ayush Sorto Cholesterol in LDL [Mass/Vol] 136.6 mg/dL Normal [facility] Comment on above: Performed By: #### T 7, URIC, TSH, CMP, LIPID #### [facility] [address] [address] [address] Ayush Sorto Cholesterol.total/C holesterol in HDL [Mass ratio] 3.2 {ratio} Normal [facility] Comment on above: Performed By: #### T 7, URIC, TSH, CMP, LIPID #### [facility] [address] [address] [address] Ayush Sorto HDL NORMAL > or = 60 mg/dl - LO W CARDIOVASCULAR RISK <40 mg/dl - HIGH CARDIOVASCULAR RISK Normal [facility] Comment on above: Performed By: #### T 7, URIC, TSH, CMP, LIPID #### [facility] [address] [place] [address] Dr. Ayush Sorto LDL CALC NORMAL SEE BELOW Normal [facility] Comment on above: Result Comment: <100 mg/dl OPTIMAL 100 - 129 mg/dl NEAR OR ABOVE OPTIMAL 130 - 159 mg/dl BORDERLINE HIGH 160 - 189 mg/dl HIGH >190 mg/dl VERY HIGH Performed By: #### T 7, URIC, TSH, CMP, LIPID #### [facility] [address] [place] [address] Dr. Ayush Sorto Triglyceride [Mass/Vol] 57 mg/dL Normal <=150 [facility] Comment on above: Performed By: #### T 7, URIC, TSH, CMP, LIPID #### [facility] [address] [place] [address] Dr. Ayush Sorto VLDL CALC 11.4 mg/dL Normal [facility] Comment on above: Performed By: #### T 7, URIC, TSH, CMP, LIPID #### [facility] [address] [place] [address] Dr. Ayush Sorto PROF 14(COMP METB)on 023 Albumin [Mass/Vol] 4.0 g/dL Normal 3.4-5.0 [facility] Comment on above: Performed By: #### T 7, URIC, TSH, CMP, LIPID #### [facility] [address] [place] [address] Dr. Ayush Sorto Albumin/Globulin [Mass ratio] 1.2 {ratio} Normal [facility] Comment on above: Performed By: #### T 7, URIC, TSH, CMP, LIPID #### [facility] [address] [place] [address] Dr. Ayush Sorto ALP [Catalytic activity/Vol] 85 U/L Normal 46-116 [facility] Comment on above: Performed By: #### T 7, URIC, TSH, CMP, LIPID #### [facility] [address] [place] [address] Dr. Ayush Sorto ALT [Catalytic activity/Vol] 28 U/L Normal 16-63 [facility] Comment on above: Performed By: #### T 7, URIC, TSH, CMP, LIPID #### [facility] [address] [address] [address] Ayush Sorto Anion gap [Moles/Vol] 12.9 mmol/L Normal [facility] Comment on above: Performed By: #### T 7, URIC, TSH, CMP, LIPID #### [facility] [address] [address] [address] Ayush Sorto AST [Catalytic activity/Vol] 23 U/L Normal 15-37 [facility] Comment on above: Performed By: #### T 7, URIC, TSH, CMP, LIPID #### [facility] [address] [place] [address] Dr. Ayush Sorto Bilirubin [Mass/Vol] 1.1 mg/dL Critically high 0.2-1.0 [facility] Comment on above: Performed By: #### T 7, URIC, TSH, CMP, LIPID #### [facility] [address] [place] [address] Dr. Ayush Sorto Calcium [Mass/Vol] 9.2 mg/dL Normal 8.5-10.1 [facility] Comment on above: Performed By: #### T 7, URIC, TSH, CMP, LIPID #### [facility] [address] [place] [address] Dr. Ayush Sorto Chloride [Moles/Vol] 103 mmol/L Normal 98-107 [facility] Comment on above: Performed By: #### T 7, URIC, TSH, CMP, LIPID #### [facility] [address] [place] [address] Dr. Ayush Sorto CO2 [Moles/Vol] 27.9 mmol/L Normal 21.0-32.0 [facility] Comment on above: Performed By: #### T 7, URIC, TSH, CMP, LIPID #### [facility] [address] [place] [address] Dr. Ayush Sorto Creatinine [Mass/Vol] 0.88 mg/dL Normal 0.70-1.30 [facility] Comment on above: Performed By: #### T 7, URIC, TSH, CMP, LIPID #### [facility] [address] [address] [address] Ayush Sorto EGFR-AF [place]OU[place]ORE[place] >60 Normal >=60 [facility] Comment on above: Performed By: #### T 7, URIC, TSH, CMP, LIPID #### [facility] [address] [address] [address] Ayush Sorto EGFR-NON AF [place] >60 Normal >=60 [facility] Comment on above: Performed By: #### T 7, URIC, TSH, CMP, LIPID #### [facility] [address] [place] [address] Dr. Ayush Sorto Globulin (S) [Mass/Vol] 3.4 g/dL Normal [facility] Comment on above: Performed By: #### T 7, URIC, TSH, CMP, LIPID #### [facility] [address] [place] [address] Dr. Ayush Sorto Glucose [Mass/Vol] 93 mg/dL Normal 74-106 [facility] Comment on above: Performed By: #### T 7, URIC, TSH, CMP, LIPID #### [facility] [address] [place] [address] Dr. Ayush Sorto Potassium [Moles/Vol] 4.8 mmol/L Normal 3.5-5.1 [facility] Comment on above: Performed By: #### T 7, URIC, TSH, CMP, LIPID #### [facility] [address] [place] [address] Dr. Ayush Sorto Protein [Mass/Vol] 7.4 g/dL Normal 6.4-8.2 [facility] Comment on above: Performed By: #### T 7, URIC, TSH, CMP, LIPID #### [facility] [address] [place] [address] Dr. Ayush Sorto Sodium [Moles/Vol] 139 mmol/L Normal 136-145 [facility] Comment on above: Performed By: #### T 7, URIC, TSH, CMP, LIPID #### [facility] [address] [address] [address] Ayush Sorto Urea nitrogen [Mass/Vol] 23.0 mg/dL Critically high 7.0-18.0 [facility] Comment on above: Performed By: #### T 7, URIC, TSH, CMP, LIPID #### [facility] [address] [place] [address] Dr. Ayush Sorto Urea nitrogen/Creatinine [Mass ratio] 26.1 mg/mg Normal [facility] Comment on above: Performed By: #### T 7, URIC, TSH, CMP, LIPID #### [facility] [address] [place] [address] Dr. Ayush Sorto TSHon 01-22-2023 TSH 1.145 uIU/mL Normal 0.358-3.74 0 [facility] Comment on above: Performed By: #### T 7, URIC, TSH, CMP, LIPID #### [facility] [address] [place] [address] Dr. Ayush Sorto URIC ACID SERUMon 01-22-2023 Urate [Mass/Vol] 6.8 mg/dL Normal 3.5-7.2 [facility] Comment on above: Performed By: #### T 7, URIC, TSH, CMP, LIPID #### [facility] [address] [place] [address] Dr. Ayush Sorto VITAMIN D 25 OHon 01-22-2023 VIT D 25-OH 72.7 ng/mL Normal [facility] Comment on above: Performed By: #### V PLACIDO PSASC #### [facility] [address] [place] [address] Dr. Ayush Sorto VIT D RANGES SEE BELOW Normal [facility] Comment on above: Result Comment: <20 ng/mL Vit D deficient 20 - <30 ng/mL Vit D insufficient 30 - 100 ng/mL Vit D sufficient >100 ng/mL Potential Toxicity Performed By: #### Efrain CUMMINS, PSASC #### [facility] [address] [place] [address] Dr. Ayush Sorto PROF CHEM 8 (BAS METB)on Anion gap [Moles/Vol] 10.1 mmol/L Normal [facility] Comment on above: Performed By: #### T 7, URIC, TSH, CMP, LIPID #### [facility] [address] [place] [address] Dr. Ayush Sorto Calcium [Mass/Vol] 9.3 mg/dL Normal 8.5-10.1 [facility] Comment on above: Performed By: #### T 7, URIC, TSH, CMP, LIPID #### [facility] [address] [place] [address] Dr. Ayush Sorto Chloride [Moles/Vol] 102 mmol/L Normal 98-107 [facility] Comment on above: Performed By: #### T 7, URIC, TSH, CMP, LIPID #### [facility] [address] [place] [address] Dr. yAush Sorto CO2 [Moles/Vol] 31.8 mmol/L Normal 21.0-32.0 [facility] Comment on above: Performed By: #### T 7, URIC, TSH, CMP, LIPID #### [facility] [address] [place] [address] Dr. Ayush Sorto Creatinine [Mass/Vol] 1.03 mg/dL Normal 0.70-1.30 [facility] Comment on above: Performed By: #### T 7, URIC, TSH, CMP, LIPID #### [facility] [address] [place] [address] Dr. Ayush Sorto EGFR-AF [place] >60 Normal >=60 [facility] Comment on above: Performed By: #### T 7, URIC, TSH, CMP, LIPID #### [facility] [address] [place] [address] Dr. Ayush Sorto EGFR-NON AF [place] >60 Normal >=60 [facility] Comment on above: Performed By: #### T 7, URIC, TSH, CMP, LIPID #### [facility] [address] [place] [address] Dr. Ayush Sorto Glucose [Mass/Vol] 121 mg/dL Critically high 74-106 [facility] Comment on above: Performed By: #### T 7, URIC, TSH, CMP, LIPID #### [facility] [address] [address] [address] Ayush Sorto Potassium [Moles/Vol] 4.9 mmol/L Normal 3.5-5.1 [facility] Comment on above: Performed By: #### T 7, URIC, TSH, CMP, LIPID #### [facility] [address] [address] [address] Ayush Sorto Sodium [Moles/Vol] 139 mmol/L Normal 136-145 [facility] Comment on above: Performed By: #### T 7, URIC, TSH, CMP, LIPID #### [facility] [address] [address] [address] Ayush Sorto Urea nitrogen [Mass/Vol] 15.0 mg/dL Normal 7.0-18.0 [facility] Comment on above: Performed By: #### T 7, URIC, TSH, CMP, LIPID #### [facility] [address] [address] [address] Ayush Sorto Urea nitrogen/Creatinine [Mass ratio] 14.6 mg/mg Normal [facility] Comment on above: Performed By: #### T 7, URIC, TSH, CMP, LIPID #### [facility] [address] [address] [address] Ayush Sorto ECHOCARDIO M/2D COMPLETEon 1 11-24-2021 ECHOCARDIO M/2D COMPLETE Patient: REECE HOGUE Exam Date: 09/24/2022 : 1960 Gender:M Ordering : RENU ZARCO [facility] Admission #: [id number] Family : DR KACY JACOBSON . Order #: [id number] CLICK HERE TO VIEW EXAM ECHOCARDIOGRAM REPORT [...] M.D. on 09/24/2022 at 16:24 Normal [facility] CBC AUTO DIFFon 09-10-2022 BASO # 0.1 103/ul Normal 0.0-0.1 [facility] Comment on above: Performed By: #### C BC #### [facility] [address] [place] [address] Dr. Ayush Sorto Basophils/100 WBC (Bld) 0.8 % Normal 0.2-2.0 [facility] Comment on above: Performed By: #### C BC #### [facility] [address] [address] [address] Ayush Sorto EO # 0.1 103/ul Normal 0.0-0.7 [facility] Comment on above: Performed By: #### C BC #### [facility] [address] [address] [address] Ayush Sorto Eosinophils/100 WBC (Bld) 1.3 % Normal 0.9-7.0 [facility] Comment on above: Performed By: #### C BC #### [facility] [address] [place] [address] Dr. Ayush Sorto Erythrocyte distribution width (RBC) [Ratio] 12.8 % Normal 11.0-15.0 [facility] Comment on above: Performed By: #### C BC #### [facility] [address] [place] [address] Dr. Ayush Sorto Hematocrit (Bld) [Volume fraction] 48.5 % Normal 42.0-54.0 [facility] Comment on above: Performed By: #### C BC #### [facility] [address] [place] [address] Dr. Ayush Sorto Hemoglobin (Bld) [Mass/Vol] 16.2 g/dL Normal 14.0-18.0 [facility] Comment on above: Performed By: #### C BC #### [facility] [address] [place] [address] Dr. Ayush Sorto IG # 0.01 10e3/ul Normal 0.00-0.03 [facility] Comment on above: Performed By: #### C BC #### [facility] [address] [place] [address] Dr. Ayush Sorto IG % 0.2 % Normal 0.0-0.5 [facility] Comment on above: Performed By: #### C BC #### [facility] [address] [place] [address] Dr. Ayush Sorto LYMPH # 1.0 103/ul Critically low 1.2-3.8 [facility] Comment on above: Performed By: #### C BC #### [facility] [address] [place] [address] Dr. Ayush Sorto Lymphocytes/100 WBC (Bld) 15.6 % Critically low 20.5-60.0 [facility] Comment on above: Performed By: #### C BC #### [facility] [address] [place] [address] Dr. Ayush Sorto MANUAL DIFF REQ NO Normal [facility] Comment on above: Performed By: #### C BC #### [facility] [address] [address] [address] Ayush Sorto MCH (RBC) [Entitic mass] 30.5 pg Normal 25.9-34.0 [facility] Comment on above: Performed By: #### C BC #### [facility] [address] [place] [address] Dr. Ayush Sorto MCHC (RBC) [Mass/Vol] 33.4 g/dL Normal 29.9-35.2 [facility] Comment on above: Performed By: #### C BC #### [facility] [address] [place] [address] Dr. Ayush Sorto MCV (RBC) [Entitic vol] 91.3 fL Normal 80.0-94.0 [facility] Comment on above: Performed By: #### C BC #### [facility] [address] [place] [address] Dr. Ayush Sorto MONO # 0.6 103/ul Normal 0.3-0.8 [facility] Comment on above: Performed By: #### C BC #### [facility] [address] [place] [address] Dr. Ayush Sorto Monocytes/100 WBC (Bld) 9.2 % Normal 1.7-12.0 [facility] Comment on above: Performed By: #### C BC #### [facility] [address] [place] [address] Dr. Ayush Sorto NEUT # 4.5 103/ul Normal 1.4-6.5 [facility] Comment on above: Performed By: #### C BC #### [facility] [address] [place] [address] Dr. Ayush Sorto Neutrophils/100 WBC (Bld) 72.9 % Normal 43.0-75.0 [facility] Comment on above: Performed By: #### C BC #### [facility] [address] [place] [address] Dr. Ayush Sorto Platelet mean volume (Bld) [Entitic vol] 8.9 fL Critically low 9.5-13.5 [facility] Comment on above: Performed By: #### C BC #### [facility] [address] [address] [address] Ayush Sorto PLT 226 103/ul Normal 150-450 [facility] Comment on above: Performed By: #### C BC #### [facility] [address] [place] [address] Dr. Ayush Sorto RBC 5.31 106/ul Normal 4.70-6.10 [facility] Comment on above: Performed By: #### C BC #### [facility] [address] [place] [address] Dr. Ayush Sorto WBC 6.2 103/ul Normal 4.0-11.0 [facility] Comment on above: Performed By: #### C BC #### [facility] [address] [place] [address] Dr. Ayush Sorto LIPID PROFILEon 09-10-2022 CHOL-HDL RATIO NORM SEE BELOW Normal [facility] Comment on above: Result Comment: 3.3 - 4.4 LOW RISK 4.4 - 7.1 AVERAGE RISK 7.1 - 11.0 MODERATE RISK >11.0 HIGH RISK Performed By: #### T 7, URIC, TSH, CMP, LIPID #### [facility] [address] [place] [address] Dr. Ayush Sorto Cholesterol [Mass/Vol] 206 mg/dL Critically high <=200 [facility] Comment on above: Performed By: #### T 7, URIC, TSH, CMP, LIPID #### [facility] [address] [place] [address] Dr. Ayush Sorto Cholesterol in HDL [Mass/Vol] 73 mg/dL Critically high 40-60 [facility] Comment on above: Performed By: #### T 7, URIC, TSH, CMP, LIPID #### [facility] [address] [place] [address] Dr. Ayush Sorto Cholesterol in LDL [Mass/Vol] 123.2 mg/dL Normal [facility] Comment on above: Performed By: #### T 7, URIC, TSH, CMP, LIPID #### [facility] [address] [address] [address] Ayush Sorto Cholesterol.total/C holesterol in HDL [Mass ratio] 2.8 {ratio} Normal [facility] Comment on above: Performed By: #### T 7, URIC, TSH, CMP, LIPID #### [facility] [address] [address] [address] Ayush Sorto HDL NORMAL > or = 60 mg/dl - LO W CARDIOVASCULAR RISK <40 mg/dl - HIGH CARDIOVASCULAR RISK Normal [facility] Comment on above: Performed By: #### T 7, URIC, TSH, CMP, LIPID #### [facility] [address] [address] [address] Ayush Sorto LDL CALC NORMAL SEE BELOW Normal [facility] Comment on above: Result Comment: <100 mg/dl OPTIMAL 100 - 129 mg/dl NEAR OR ABOVE OPTIMAL 130 - 159 mg/dl BORDERLINE HIGH 160 - 189 mg/dl HIGH >190 mg/dl VERY HIGH Performed By: #### T 7, URIC, TSH, CMP, LIPID #### [facility] [address] [address] [address] Ayush Sorto Triglyceride [Mass/Vol] 49 mg/dL Normal <=150 [facility] Comment on above: Performed By: #### T 7, URIC, TSH, CMP, LIPID #### [facility] [address] [address] [address] Ayush Sorto VLDL CALC 9.8 mg/dL Normal [facility] Comment on above: Performed By: #### T 7, URIC, TSH, CMP, LIPID #### [facility] [address] [address] [address] Ayush Sorto PROF 14(COMP METB)on 022 Albumin [Mass/Vol] 4.0 g/dL Normal 3.4-5.0 [facility] Comment on above: Performed By: #### T 7, URIC, TSH, CMP, LIPID #### [facility] [address] [address] [address] Ayush Sorto Albumin/Globulin [Mass ratio] 1.2 {ratio} Normal [facility] Comment on above: Performed By: #### T 7, URIC, TSH, CMP, LIPID #### [facility] [address] [place] [address] Dr. Ayush Sorto ALP [Catalytic activity/Vol] 83 U/L Normal 46-116 [facility] Comment on above: Performed By: #### T 7, URIC, TSH, CMP, LIPID #### [facility] [address] [place] [address] Dr. Ayush Sorto ALT [Catalytic activity/Vol] 35 U/L Normal 16-63 [facility] Comment on above: Performed By: #### T 7, URIC, TSH, CMP, LIPID #### [facility] [address] [place] [address] Dr. Ayush Sorto Anion gap [Moles/Vol] 9.0 mmol/L Normal [facility] Comment on above: Performed By: #### T 7, URIC, TSH, CMP, LIPID #### [facility] [address] [place] [address] Dr. Ayush Sorto AST [Catalytic activity/Vol] 26 U/L Normal 15-37 [facility] Comment on above: Performed By: #### T 7, URIC, TSH, CMP, LIPID #### [facility] [address] [place] [address] Dr. Ayush Sorto Bilirubin [Mass/Vol] 1.0 mg/dL Normal 0.2-1.0 [facility] Comment on above: Performed By: #### T 7, URIC, TSH, CMP, LIPID #### [facility] [address] [place] [address] Dr. Ayush Sorto Calcium [Mass/Vol] 9.5 mg/dL Normal 8.5-10.1 [facility] Comment on above: Performed By: #### T 7, URIC, TSH, CMP, LIPID #### [facility] [address] [place] [address] Dr. Ayush Sorto Chloride [Moles/Vol] 105 mmol/L Normal 98-107 [facility] Comment on above: Performed By: #### T 7, URIC, TSH, CMP, LIPID #### [facility] [address] [place] [address] Dr. Ayush Sorto CO2 [Moles/Vol] 27.7 mmol/L Normal 21.0-32.0 [facility] Comment on above: Performed By: #### T 7, URIC, TSH, CMP, LIPID #### [facility] [address] [address] [address] Ayush Sorto Creatinine [Mass/Vol] 0.90 mg/dL Normal 0.70-1.30 [facility] Comment on above: Performed By: #### T 7, URIC, TSH, CMP, LIPID #### [facility] [address] [address] [address] Ayush Sorto EGFR-AF [place]OU[place]ORE[place] >60 Normal >=60 [facility] Comment on above: Performed By: #### T 7, URIC, TSH, CMP, LIPID #### [facility] [address] [address] [address] Ayush Sorto EGFR-NON AF [place] >60 Normal >=60 [facility] Comment on above: Performed By: #### T 7, URIC, TSH, CMP, LIPID #### [facility] [address] [address] [address] Ayush Sorto Globulin (S) [Mass/Vol] 3.3 g/dL Normal [facility] Comment on above: Performed By: #### T 7, URIC, TSH, CMP, LIPID #### [facility] [address] [address] [address] Ayush Sorto Glucose [Mass/Vol] 105 mg/dL Normal 74-106 [facility] Comment on above: Performed By: #### T 7, URIC, TSH, CMP, LIPID #### [facility] [address] [address] [address] Ayush Sorto Potassium [Moles/Vol] 4.7 mmol/L Normal 3.5-5.1 [facility] Comment on above: Performed By: #### T 7, URIC, TSH, CMP, LIPID #### [facility] [address] [address] [address] Ayush Sorto Protein [Mass/Vol] 7.3 g/dL Normal 6.4-8.2 [facility] Comment on above: Performed By: #### T 7, URIC, TSH, CMP, LIPID #### [facility] [address] [address] [address] Ayush Sorto Sodium [Moles/Vol] 137 mmol/L Normal 136-145 [facility] Comment on above: Performed By: #### T 7, URIC, TSH, CMP, LIPID #### [facility] [address] [address] [address] Ayush Sorto Urea nitrogen [Mass/Vol] 19.0 mg/dL Critically high 7.0-18.0 [facility] Comment on above: Performed By: #### T 7, URIC, TSH, CMP, LIPID #### [facility] [address] [address] [address] Ayush Sorto Urea nitrogen/Creatinine [Mass ratio] 21.1 mg/mg Normal [facility] Comment on above: Performed By: #### T 7, URIC, TSH, CMP, LIPID #### [facility] [address] [place] [address] Dr. Ayush Sorto BASIC METABOLIC PANELon 10-2 Calcium mass conc 9.3 mg/dL Normal 8.6-10.3 [facility] Comment on above: Order Comment: No: D o not add to previous draw Performed By: #### 0 0121, 28108, 45202 ####[facility] [facility] [place] [address], [facility] Chloride molar conc 102 mmol/L Normal 98-107 [facility] Comment on above: Order Comment: No: D o not add to previous draw Performed By: #### 0 0121, 37765, 55280 ####[facility] [facility].[address] [place] [id number], [facility] CO2 molar conc 27 mmol/L Normal 21-31 [facility] Comment on above: Order Comment: No: D o not add to previous draw Performed By: #### 0 0121, 98168, 14675 ####[facility] [facility] [place] [address], [facility] Creatinine mass conc 0.73 mg/dL Normal 0.70-1.30 [facility] Comment on above: Order Comment: No: D o not add to previous draw Performed By: #### 0 0121, 65682, 08042 ####[facility] [place] [address], [facility] GFR/1.73 sq M predicted among blacks MDRD vol rate/area (S/P/Bld) mL/min/{1.73_m2} Normal >60 [facility] Comment on above: Order Comment: No: D o not add to previous draw Performed By: #### 0 0121, 58457, 75376 ####[facility] [facility] [place] [address], [facility] GFR/1.73 sq M predicted among non-blacks MDRD vol rate/area (S/P/Bld) mL/min/{1.73_m2} Normal >60 [facility] Comment on above: Order Comment: No: D o not add to previous draw Performed By: #### 0 0121, 53173, 54273 ####[facility] [facility] [place] [address], [facility] Glucose mass conc 109 mg/dL High 70-100 [facility] Comment on above: Order Comment: No: D o not add to previous draw Performed By: #### 0 0121, 08851, 82589 ####[facility] [place] [address], [facility] Potassium molar conc 4.1 mmol/L Normal 3.5-5.1 [facility] Comment on above: Order Comment: No: D o not add to previous draw Performed By: #### 0 0121, 72676, 59340 ####[facility] [place] [address], [place] Sodium molar conc 136 mmol/L Normal 136-145 [facility] Comment on above: Order Comment: No: D o not add to previous draw Performed By: #### 0 0121, 19625, 07748 ####[facility] [facility].[address] Urea nitrogen mass conc 10 mg/dL Normal 7-25 [facility] Comment on above: Order Comment: No: D o not add to previous draw Performed By: #### 0 0121, 65106, 71281 ####[facility] [facility].[address] CBC COMPLETE BLOOD COUNTon 1 - Erythrocyte distribution width Auto Ratio (RBC) 12.8 % Normal 11.5-15.0 [facility] Comment on above: Order Comment: No: D o not add to previous draw Performed By: #### 0 0121, 01563, 97246 ####[facility] [facility].[address] Hematocrit Auto Volume Fraction (Bld) 45.7 % Normal 39.0-50.0 [facility] Comment on above: Order Comment: No: D o not add to previous draw Performed By: #### 0 0121, 79273, 65217 ####[facility] [facility].[address] Hemoglobin mass conc (Bld) 15.6 g/dL Normal 13.0-17.0 [facility] Comment on above: Order Comment: No: D o not add to previous draw Performed By: #### 0 0121, 30943, 19945 ####[facility] [facility].[address] MCH Auto Entitic mass (RBC) 30.4 pg Normal 27.0-33.0 [facility] Comment on above: Order Comment: No: D o not add to previous draw Performed By: #### 0 0121, 91724, 59110 ####[facility] [facility] [place] [address], [facility] MCHC Auto mass conc (RBC) 34.1 g/dL Normal 32.0-35.0 [facility] Comment on above: Order Comment: No: D o not add to previous draw Performed By: #### 0 0121, 86545, 29625 ####[facility] [facility].[address] MCV Auto Entitic volume (RBC) 89.1 fL Normal 82.0-98.0 [facility] Comment on above: Order Comment: No: D o not add to previous draw Performed By: #### 0 0121, 65211, 51707 ####[facility] [facility].[address] Nucleated RBC/100 WBC Ratio (Bld) 0 % Normal 0-0 [facility] Comment on above: Order Comment: No: D o not add to previous draw Performed By: #### 0 0121, 63226, 98234 ####[facility] [facility].[address] PLAT CNT 218 10*3/uL Normal 150-400 [facility] Comment on above: Order Comment: No: D o not add to previous draw Performed By: #### 0 0121, 45224, 93340 ####[facility] [facility].[address] RBC Auto #/vol (Bld) 5.13 10*6/uL Normal 4.20-5.70 [facility] Comment on above: Order Comment: No: D o not add to previous draw Performed By: #### 0 0121, 85655, 44921 ####[facility] [facility] [place] [address], [facility] WBC Auto #/vol (Bld) 6.96 10*3/uL Normal 4.00-10.60 [facility] Comment on above: Order Comment: No: D o not add to previous draw Performed By: #### 0 0121, 03449, 14394 ####[facility] [facility].[place], [place] [id number] [place] [address] Cardiovascular Lab Reporton 09-14-2018 Cardiovascular Lab Report [facility] Patient [facility] MR #: [id number] Physician: Lizette Montano M.D.Medicine Service Date: 09/13/2018Division of Birthdate: 1960Cardiology Room #: 3CD [id number] CardiovascularServicesUniversi [facility], KnoxvilleSrzztlrUhygyu[address] [place], [place] [address]Sjmce Fax Cardiovascular Laboratory ReportPROCEDURE: Transesophageal echocardiogram and cardioversion.INDICATION: Atrial fibrillation.FELLOW: aTnya Botello M.D.PROCEDURE IN DETAIL: An informed consent was obtained from the patientafter explaining indications, risks, and benefits, and alternatives. Thepatient understood and agreed and signed the consent form. The patient wasbrought to the cardiac cath lab manager and MOJGAN was performed under conscious sedation. Thepatient obtained a total of 10 mg of Versed and 100 mcg of fentanyl duringthe procedure. The transesophageal echocardiogram did not show anythrombus in the left atrial appendage. Full MOJGAN report is dictatedelsohiohealth [facility]. After the transesophageal echocardiogram, synchronized biphasiccardioversion was done with 300 joules of energy. The patient successfullyconverted to sinus rhythm as evidenced by the EKG done postprocedure. Nocomplications throughout the procedure.Electronically Signed by:Lizette Haines M.D. 09/19/2018 08:34 P Lizette Haines M.D. I was present for the entire procedure. Date Dict: 09/13/2018/11:49 A/Al Brownlee Trans: 09/14/2018 06:55 A/Marguerite_JN:[id number]: Kacy Jacobson M.D. [address], [facility] [address] Yury Funez M.D. [address] [facility] [address] [address] Normal [facility] APTTon 09-13-2018 aPTT Coag time (Bld) 86.4 s Critically high 25.0-35.0 [facility] Comment on above: Order Comment: No: [...] PRESENCEOF HEPARIN. Performed By: #### 0 0121, 54021, 52770 ####[facility] [facility].[address] aPTT Coag time (Bld) 41.4 s High 25.0-35.0 [facility] Comment on above: Result Comment: ALL [...] THIS PURPOSE. Performed By: #### 0 0121, 24511, 84951 ####[facility] [facility].[address] UFH HEPARIN ASSAYon 09-13-20 18 UNFRACTIONATED HEPARIN 0.64 IU/mL Normal 0.30-0.70 [facility] Comment on above: Result Comment: Lisa roxaban and Apixaban will interfere with the anti Xa assay used tomonitor UFH and LMWH. Performed By: #### 0 0121, 96776, 83270 ####[facility] [facility] [place] [address], [facility] UNFRACTIONATED HEPARIN 0.25 IU/mL Low 0.30-0.70 [facility] Comment on above: Result Comment: [place] roxaban and Apixaban will interfere with the anti Xa assay used tomonitor UFH and LMWH. Performed By: #### 0 0121, 98937, 99547 ####[facility] BASIC METABOLIC PANELon 10-2 Calcium mass conc 8.6 mg/dL Normal 8.6-10.3 [facility] Comment on above: Order Comment: No: D o not add to previous draw Performed By: #### 0 0121, 48909, 74679 ####[facility] [facility] [place] [address], [facility] Chloride molar conc 106 mmol/L Normal 98-107 [facility] Comment on above: Order Comment: No: D o not add to previous draw Performed By: #### 0 0121, 47542, 88376 ####[facility] [facility] [place] [address], [facility] CO2 molar conc 25 mmol/L Normal 21-31 [facility] Comment on above: Order Comment: No: D o not add to previous draw Performed By: #### 0 0121, 51274, 26136 ####[facility] [place] [address], [facility] Creatinine mass conc 0.64 mg/dL Low 0.70-1.30 [facility] Comment on above: Order Comment: No: D o not add to previous draw Performed By: #### 0 0121, 46643, 93031 ####[facility] [place] [address], [facility] GFR/1.73 sq M predicted among blacks MDRD vol rate/area (S/P/Bld) mL/min/{1.73_m2} Normal >60 [facility] Comment on above: Order Comment: No: D o not add to previous draw Performed By: #### 0 0121, 62860, 37376 ####[facility] [place] [address], [facility] GFR/1.73 sq M predicted among non-blacks MDRD vol rate/area (S/P/Bld) mL/min/{1.73_m2} Normal >60 [facility] Comment on above: Order Comment: No: D o not add to previous draw Performed By: #### 0 0121, 27579, 63246 ####[facility] [place] [address], [facility] Glucose mass conc 100 mg/dL Normal 70-100 [facility] Comment on above: Order Comment: No: D o not add to previous draw Performed By: #### 0 0121, 30753, 53614 ####[facility] [facility] [place] [address], [facility] Potassium molar conc 4.0 mmol/L Normal 3.5-5.1 [facility] Comment on above: Order Comment: No: D o not add to previous draw Performed By: #### 0 0121, 47970, 87312 ####[facility] [facility] [place] [address], [facility] Sodium molar conc 137 mmol/L Normal 136-145 [facility] Comment on above: Order Comment: No: D o not add to previous draw Performed By: #### 0 0121, 60088, 53328 ####[facility] [facility] [place] [address], [facility] Urea nitrogen mass conc 14 mg/dL Normal 7-25 [facility] Comment on above: Order Comment: No: D o not add to previous draw Performed By: #### 0 0121, 42207, 98758 ####[facility] [place] [address], [facility] CBC W/DIFFon 09-12-2018 ABS BASOPHILS 0.0 10*3/uL Normal 0.0-0.2 [facility] Comment on above: Order Comment: No: D o not add to previous draw Performed By: #### 0 0121, 66173, 95507 ####[facility] ABS IMM GRANS 0.0 10*3/uL Normal 0.0-0.2 [facility] Comment on above: Order Comment: No: D o not add to previous draw Performed By: #### 0 0121, 72804, 92777 ####[facility] ABS NEUTROPHILS 3.1 10*3/uL Normal 1.6-7.6 [facility] Comment on above: Order Comment: No: D o not add to previous draw Performed By: #### 0 0121, , 00682 ####[facility] Basophils Auto #/vol (Bld) 0.7 % Normal 0.0-1.0 [facility] Comment on above: Order Comment: No: D o not add to previous draw Performed By: #### 0 0121, 56706, 81862 ####[place] [id number] [address] Eosinophils Auto #/vol (Bld) 0.2 10*3/uL Normal 0.0-0.5 [facility] Comment on above: Order Comment: No: D o not add to previous draw Performed By: #### 0 0121, 44712, 46525 ####[facility] Eosinophils/100 WBC Auto (Bld) 3.6 % Normal 0.0-6.0 [facility] Comment on above: Order Comment: No: D o not add to previous draw Performed By: #### 0 0121, 30199, 02045 ####[facility] Erythrocyte distribution width Auto Ratio (RBC) 12.7 % Normal 11.5-15.0 [facility] Comment on above: Order Comment: No: D o not add to previous draw Performed By: #### 0 0121, 05711, 77785 ####[facility] Hematocrit Auto Volume Fraction (Bld) 45.5 % Normal 39.0-50.0 [facility] Comment on above: Order Comment: No: D o not add to previous draw Performed By: #### 0 0121, 84293, 71225 ####[address] Hemoglobin mass conc (Bld) 15.2 g/dL Normal 13.0-17.0 [facility] Comment on above: Order Comment: No: D o not add to previous draw Performed By: #### 0 0121, 38739, 87301 ####[place] [address] [address] IMMATURE GRANS 0.4 % Normal 0.0-1.0 [facility] Comment on above: Order Comment: No: D o not add to previous draw Performed By: #### 0 0121, 21246, 94568 ####[address] Lymphocytes Auto #/vol (Bld) 1.5 10*3/uL Normal 1.2-4.0 [facility] Comment on above: Order Comment: No: D o not add to previous draw Performed By: #### 0 0121, 89281, 11466 ####[address] Lymphocytes/100 WBC Auto (Bld) 27.8 % Normal 20.0-45.0 [facility] Comment on above: Order Comment: No: D o not add to previous draw Performed By: #### 0 0121, 69555, 18533 ####[facility]3000 [facility].[address] MCH Auto Entitic mass (RBC) 30.0 pg Normal 27.0-33.0 [facility] Comment on above: Order Comment: No: D o not add to previous draw Performed By: #### 0 0121, , 56509 ####[facility]3000 [facility].[address] MCHC Auto mass conc (RBC) 33.4 g/dL Normal 32.0-35.0 [facility] Comment on above: Order Comment: No: D o not add to previous draw Performed By: #### 0 0121, , 35732 ####[facility]3000 [facility].[address] MCV Auto Entitic volume (RBC) 89.9 fL Normal 82.0-98.0 [facility] Comment on above: Order Comment: No: D o not add to previous draw Performed By: #### 0 0121, , 26012 ####[facility]3000 [facility].[address] Monocytes Auto #/vol (Bld) 0.6 10*3/uL Normal 0.1-1.0 [facility] Comment on above: Order Comment: No: D o not add to previous draw Performed By: #### 0 0121, , 53233 ####[facility]3000 [facility].[address] MONOS 11.4 % Normal 5.0-12.0 [facility] Comment on above: Order Comment: No: D o not add to previous draw Performed By: #### 0 0121, 27592, 32843 ####[facility]3000 [facility].[address] Neutrophils/100 WBC Auto (Bld) 56.1 % Normal 40.0-72.0 [facility] Comment on above: Order Comment: No: D o not add to previous draw Performed By: #### 0 0121, 51581, 92143 ####[facility] Nucleated RBC/100 WBC Ratio (Bld) 0 % Normal 0-0 [facility] Comment on above: Order Comment: No: D o not add to previous draw Performed By: #### 0 0121, 45605, 95939 ####[facility]3000 [facility] [place] [address], [facility] PLAT CNT 188 10*3/uL Normal 150-400 [facility] Comment on above: Order Comment: No: D o not add to previous draw Performed By: #### 0 0121, 48869, 11108 ####[facility]3000 [facility].[address] RBC Auto #/vol (Bld) 5.06 10*6/uL Normal 4.20-5.70 [facility] Comment on above: Order Comment: No: D o not add to previous draw Performed By: #### 0 0121, 30820, 64799 ####[facility]3000 [facility] [place] [address], [facility] WBC Auto #/vol (Bld) 5.54 10*3/uL Normal 4.00-10.60 [facility] Comment on above: Order Comment: No: D o not add to previous draw Performed By: #### 0 0121, 04297, 16965 ####[facility]3000 [facility] [place] [address], [facility] MAGNESIUM BLOODon 09-12-2018 Magnesium mass conc 1.9 mg/dL Normal 1.9-2.7 [facility] Comment on above: Order Comment: No: D o not add to previous draw Performed By: #### 0 0121, 50830, 43251 ####[facility] UFH HEPARIN ASSAYon 09-12-20 UNFRACTIONATED HEPARIN 0.26 IU/mL Low 0.30-0.70 [facility] Comment on above: Result Comment: Lisa roxaban and Apixaban will interfere with the anti Xa assay used tomonitor UFH and LMWH. Performed By: #### 0 0121, 87664, 18088 ####[facility] UNFRACTIONATED HEPARIN 0.72 IU/mL High 0.30-0.70 [facility] Comment on above: Result Comment: [place] roxaban and Apixaban will interfere with the anti Xa assay used tomonitor UFH and LMWH. Performed By: #### 0 0121, 21890, 36117 ####[facility] UNFRACTIONATED HEPARIN 0.49 IU/mL Normal 0.30-0.70 [facility] Comment on above: Result Comment: [place] roxaban and Apixaban will interfere with the anti Xa assay used tomonitor UFH and LMWH. Performed By: #### 0 0121, 67985, 28969 ####[facility] APTTon 09-11-2018 aPTT Coag time (Bld) 101.0 s Critically high 25.0-35.0 [facility] Comment on above: Order Comment: No: [...] RNAT 615 Performed By: #### 0 0121, 68809, 00995 ####[facility] [place] [address], [facility] BASIC METABOLIC PANELon 10-2 Calcium mass conc 8.9 mg/dL Normal 8.6-10.3 [facility] Comment on above: Order Comment: No: D o not add to previous draw Performed By: #### 0 0121, 93466, 60535 ####[facility] [place] [address], [facility] Chloride molar conc 106 mmol/L Normal 98-107 [facility] Comment on above: Order Comment: No: D o not add to previous draw Performed By: #### 0 0121, 87341, 94512 ####[facility] [place] [address], [facility] CO2 molar conc 25 mmol/L Normal 21-31 [facility] Comment on above: Order Comment: No: D o not add to previous draw Performed By: #### 0 0121, 59194, 18750 ####[facility] [address], [facility] Creatinine mass conc 0.84 mg/dL Normal 0.70-1.30 [facility] Comment on above: Order Comment: No: D o not add to previous draw Performed By: #### 0 0121, 30202, 43750 ####[facility] [address], [place] GFR/1.73 sq M predicted among blacks MDRD vol rate/area (S/P/Bld) mL/min/{1.73_m2} Normal >60 [facility] Comment on above: Order Comment: No: D o not add to previous draw Performed By: #### 0 0121, 80893, 48670 ####[facility] [place] [address], [place] GFR/1.73 sq M predicted among non-blacks MDRD vol rate/area (S/P/Bld) mL/min/{1.73_m2} Normal >60 [facility] Comment on above: Order Comment: No: D o not add to previous draw Performed By: #### 0 0121, 84256, 49231 ####[facility] [place] [address], [facility] Glucose mass conc 103 mg/dL High 70-100 [facility] Comment on above: Order Comment: No: D o not add to previous draw Performed By: #### 0 0121, 75647, 06560 ####[facility] [address], [facility] Potassium molar conc 4.0 mmol/L Normal 3.5-5.1 [facility] Comment on above: Order Comment: No: D o not add to previous draw Performed By: #### 0 0121, 55329, 47630 ####[facility] [place] [address], [facility] Sodium molar conc 138 mmol/L Normal 136-145 [facility] Comment on above: Order Comment: No: D o not add to previous draw Performed By: #### 0 0121, 50674, 88382 ####[facility] [address], [facility] Urea nitrogen mass conc 20 mg/dL Normal 7-25 [facility] Comment on above: Order Comment: No: D o not add to previous draw Performed By: #### 0 0121, 23009, 10948 ####[facility] [place] [address], [facility] CBC W/DIFFon 09-11-2018 ABS BASOPHILS 0.0 10*3/uL Normal 0.0-0.2 [facility] Comment on above: Order Comment: No: D o not add to previous draw Performed By: #### 5 0103 ####[facility] ABS IMM GRANS 0.0 10*3/uL Normal 0.0-0.2 [facility] Comment on above: Order Comment: No: D o not add to previous draw Performed By: #### 5 0103 ####[facility] ABS NEUTROPHILS 3.1 10*3/uL Normal 1.6-7.6 [facility] Comment on above: Order Comment: No: D o not add to previous draw Performed By: #### 5 0103 ####[facility] Basophils Auto #/vol (Bld) 0.8 % Normal 0.0-1.0 [facility] Comment on above: Order Comment: No: D o not add to previous draw Performed By: #### 5 0103 ####[facility]3000 [facility].[address] Eosinophils Auto #/vol (Bld) 0.2 10*3/uL Normal 0.0-0.5 [facility] Comment on above: Order Comment: No: D o not add to previous draw Performed By: #### 5 0103 ####[facility] Eosinophils/100 WBC Auto (Bld) 3.5 % Normal 0.0-6.0 [facility] Comment on above: Order Comment: No: D o not add to previous draw Performed By: #### 5 3 ####[facility] Erythrocyte distribution width Auto Ratio (RBC) 12.8 % Normal 11.5-15.0 [facility] Comment on above: Order Comment: No: D o not add to previous draw Performed By: #### 5 3 ####[facility] Hematocrit Auto Volume Fraction (Bld) 45.3 % Normal 39.0-50.0 [facility] Comment on above: Order Comment: No: D o not add to previous draw Performed By: #### 5 0103 ####[facility]3000 [facility].[address] Hemoglobin mass conc (Bld) 15.3 g/dL Normal 13.0-17.0 [facility] Comment on above: Order Comment: No: D o not add to previous draw Performed By: #### 5 0103 ####[facility] IMMATURE GRANS 0.4 % Normal 0.0-1.0 [facility] Comment on above: Order Comment: No: D o not add to previous draw Performed By: #### 5 3 ####[facility]3000 [facility].[address] Lymphocytes Auto #/vol (Bld) 1.4 10*3/uL Normal 1.2-4.0 [facility] Comment on above: Order Comment: No: D o not add to previous draw Performed By: #### 5 0103 ####[facility] Lymphocytes/100 WBC Auto (Bld) 25.9 % Normal 20.0-45.0 [facility] Comment on above: Order Comment: No: D o not add to previous draw Performed By: #### 5 0103 ####[facility]3000 [facility].[address] MCH Auto Entitic mass (RBC) 30.5 pg Normal 27.0-33.0 [facility] Comment on above: Order Comment: No: D o not add to previous draw Performed By: #### 5 3 ####[facility]3000 [facility].[address] MCHC Auto mass conc (RBC) 33.8 g/dL Normal 32.0-35.0 [facility] Comment on above: Order Comment: No: D o not add to previous draw Performed By: #### 5 0103 ####[facility] MCV Auto Entitic volume (RBC) 90.2 fL Normal 82.0-98.0 [facility] Comment on above: Order Comment: No: D o not add to previous draw Performed By: #### 5 0103 ####[facility]3000 [facility].[address] Monocytes Auto #/vol (Bld) 0.5 10*3/uL Normal 0.1-1.0 [facility] Comment on above: Order Comment: No: D o not add to previous draw Performed By: #### 5 0103 ####[facility]3000 [facility].[address] MONOS 10.2 % Normal 5.0-12.0 [facility] Comment on above: Order Comment: No: D o not add to previous draw Performed By: #### 5 0103 ####[facility]3000 [facility].[address] Neutrophils/100 WBC Auto (Bld) 59.2 % Normal 40.0-72.0 [facility] Comment on above: Order Comment: No: D o not add to previous draw Performed By: #### 5 0103 ####[facility]3000 [facility].[address] Nucleated RBC/100 WBC Ratio (Bld) 0 % Normal 0-0 [facility] Comment on above: Order Comment: No: D o not add to previous draw Performed By: #### 5 0103 ####[facility] [place] [address], [facility] PLAT CNT 226 10*3/uL Normal 150-400 [facility] Comment on above: Order Comment: No: D o not add to previous draw Performed By: #### 5 0103 ####[facility] RBC Auto #/vol (Bld) 5.02 10*6/uL Normal 4.20-5.70 [facility] Comment on above: Order Comment: No: D o not add to previous draw Performed By: #### 5 0103 ####[facility] WBC Auto #/vol (Bld) 5.21 10*3/uL Normal 4.00-10.60 [facility] Comment on above: Order Comment: No: D o not add to previous draw Performed By: #### 5 0103 ####[facility] MAGNESIUM BLOODon 09-11-2018 Magnesium mass conc 1.8 mg/dL Low 1.9-2.7 [facility] Comment on above: Order Comment: No: D o not add to previous draw Performed By: #### 0 0121, 98798, 79026 ####[facility] PHOSPHORUS BLOODon 8 Phosphate mass conc 3.0 mg/dL Normal 2.5-5.0 [facility] Comment on above: Order Comment: No: D o not add to previous draw Performed By: #### 0 0121, 21318, 24453 ####[facility] PROTHROMBIN TIMEon 8 INR Coag RelTime (PPP) 1.01 {INR} Normal 0.91-1.16 [facility] Comment on above: Order Comment: No: [...] OF ACTION, CLINICALEFFECTIVENESS, AND OPTIMAL THERAPEUTIC RANGE. [id number]. Performed By: #### 0 0121, 76491, 30950 ####[facility] Prothrombin time (PT) Coag time (PPP) 13.3 s Normal 12.3-14.8 [facility] Comment on above: Order Comment: No: D o not add to previous draw Result Comment: ALL RESULTS MUST BE INTERPRETED WITH RESPECT TO BLOOD DRAWING ARTIFACTOR DILUTION ERROR OF ANTICOAGULANT AT THE TIME OF SAMPLING. Performed By: #### 0 0121, 66046, 01803 ####[facility] TROPONIN-Ion 09-11-2018 Troponin I.cardiac mass conc 0.00 ng/mL Normal 0.00-0.04 [facility] Comment on above: Order Comment: No: D o not add to previous draw Result Comment: REFE RENCE RANGES: 0.00 - 0.14 ng/ml NEGATIVE 0.15 - 0.25 ng/ml INDETERMINATE > 0.25 ng/ml INDICATIVE OF AN M.I. Performed By: #### 3 3990 ####[facility] UFH HEPARIN ASSAYon 09-11-20 18 UNFRACTIONATED HEPARIN 0.40 IU/mL Normal 0.30-0.70 [facility] Comment on above: Result Comment: Lisa roxaban and Apixaban will interfere with the anti Xa assay used tomonitor UFH and LMWH. Performed By: #### 0 0121, 59959, 76374 ####[facility] UNFRACTIONATED HEPARIN 0.39 IU/mL Normal 0.30-0.70 [facility] Comment on above: Result Comment: Lisa roxaban and Apixaban will interfere with the anti Xa assay used tomonitor UFH and LMWH. Performed By: #### 0 0121, 03710, 69439 ####[facility] UNFRACTIONATED HEPARIN 0.70 IU/mL Normal 0.30-0.70 [facility] Comment on above: Result Comment: [place] roxaban and Apixaban will interfere with the anti Xa assay used tomonitor UFH and LMWH. Performed By: #### 0 0121, 09476, 49027 ####[facility] UNFRACTIONATED HEPARIN 0.49 IU/mL Normal 0.30-0.70 [facility] Comment on above: Result Comment: [place] roxaban and Apixaban will interfere with the anti Xa assay used tomonitor UFH and LMWH. Performed By: #### 3 0477 ####[facility] APTTon 09-10-2018 aPTT Coag time (Bld) 26.2 s Normal 25.0-35.0 [facility] Comment on above: Result Comment: ALL [...] THIS PURPOSE. Performed By: #### 5 6101, 72893 ####[facility] CBC W/DIFFon 09-10-2018 ABS BASOPHILS 0.0 10*3/uL Normal 0.0-0.2 [facility] Comment on above: Order Comment: No: D o not add to previous draw Performed By: #### 5 0103 ####[facility] ABS IMM GRANS 0.0 10*3/uL Normal 0.0-0.2 [facility] Comment on above: Order Comment: No: D o not add to previous draw Performed By: #### 5 0103 ####[place] [address] [address] ABS NEUTROPHILS 6.0 10*3/uL Normal 1.6-7.6 [facility] Comment on above: Order Comment: No: D o not add to previous draw Performed By: #### 5 0103 ####[place] [address] Basophils Auto #/vol (Bld) 0.4 % Normal 0.0-1.0 [facility] Comment on above: Order Comment: No: D o not add to previous draw Performed By: #### 5 0103 ####[place] [address] Eosinophils Auto #/vol (Bld) 0.1 10*3/uL Normal 0.0-0.5 [facility] Comment on above: Order Comment: No: D o not add to previous draw Performed By: #### 5 0103 ####[place] [address] Eosinophils/100 WBC Auto (Bld) 1.1 % Normal 0.0-6.0 [facility] Comment on above: Order Comment: No: D o not add to previous draw Performed By: #### 5 0103 ####[facility] Erythrocyte distribution width Auto Ratio (RBC) 12.5 % Normal 11.5-15.0 [facility] Comment on above: Order Comment: No: D o not add to previous draw Performed By: #### 5 0103 ####[facility]3000 [facility].[address] Hematocrit Auto Volume Fraction (Bld) 48.8 % Normal 39.0-50.0 [facility] Comment on above: Order Comment: No: D o not add to previous draw Performed By: #### 5 3 ####[facility]3000 [facility].[address] Hemoglobin mass conc (Bld) 16.6 g/dL Normal 13.0-17.0 [facility] Comment on above: Order Comment: No: D o not add to previous draw Performed By: #### 5 0103 ####[facility]3000 [facility].[address] IMMATURE GRANS 0.3 % Normal 0.0-1.0 [facility] Comment on above: Order Comment: No: D o not add to previous draw Performed By: #### 5 0103 ####[facility] Lymphocytes Auto #/vol (Bld) 1.2 10*3/uL Normal 1.2-4.0 [facility] Comment on above: Order Comment: No: D o not add to previous draw Performed By: #### 5 0103 ####[facility] Lymphocytes/100 WBC Auto (Bld) 14.7 % Low 20.0-45.0 [facility] Comment on above: Order Comment: No: D o not add to previous draw Performed By: #### 5 0103 ####[facility]3000 [facility].[address] MCH Auto Entitic mass (RBC) 30.3 pg Normal 27.0-33.0 [facility] Comment on above: Order Comment: No: D o not add to previous draw Performed By: #### 5 0103 ####[facility]3000 [facility].[address] MCHC Auto mass conc (RBC) 34.0 g/dL Normal 32.0-35.0 [facility] Comment on above: Order Comment: No: D o not add to previous draw Performed By: #### 5 0103 ####[facility]3000 [facility].[address] MCV Auto Entitic volume (RBC) 89.2 fL Normal 82.0-98.0 [facility] Comment on above: Order Comment: No: D o not add to previous draw Performed By: #### 5 0103 ####[facility] Monocytes Auto #/vol (Bld) 0.6 10*3/uL Normal 0.1-1.0 [facility] Comment on above: Order Comment: No: D o not add to previous draw Performed By: #### 5 0103 ####[facility]3000 [facility].[address] MONOS 7.9 % Normal 5.0-12.0 [facility] Comment on above: Order Comment: No: D o not add to previous draw Performed By: #### 5 0103 ####[facility] Neutrophils/100 WBC Auto (Bld) 75.6 % High 40.0-72.0 [facility] Comment on above: Order Comment: No: D o not add to previous draw Performed By: #### 5 0103 ####[facility] Nucleated RBC/100 WBC Ratio (Bld) 0 % Normal 0-0 [facility] Comment on above: Order Comment: No: D o not add to previous draw Performed By: #### 5 0103 ####[facility] PLAT CNT 243 10*3/uL Normal 150-400 [facility] Comment on above: Order Comment: No: D o not add to previous draw Performed By: #### 5 0103 ####[facility]3000 [facility].[address] RBC Auto #/vol (Bld) 5.47 10*6/uL Normal 4.20-5.70 [facility] Comment on above: Order Comment: No: D o not add to previous draw Performed By: #### 5 0103 ####[facility] WBC Auto #/vol (Bld) 7.87 10*3/uL Normal 4.00-10.60 [facility] Comment on above: Order Comment: No: D o not add to previous draw Performed By: #### 5 0103 ####[facility] COMP METABOLIC PANELon 09-10 Albumin mass conc 4.0 g/dL Normal 3.5-5.7 [facility] Comment on above: Order Comment: No: D o not add to previous draw Performed By: #### 0 0121, 79568, 09975 ####[facility] ALKALINE PHOSPH 59 IU/L Normal 34-104 [facility] Comment on above: Order Comment: No: D o not add to previous draw Performed By: #### 0 0121, 49597, 36981 ####[facility] [address], [place] ALT enzyme act/vol 22 U/L Normal 7-52 [facility] Comment on above: Order Comment: No: D o not add to previous draw Performed By: #### 0 0121, 31556, 96903 ####[facility] [place] [address], [place] AST enzyme act/vol 20 U/L Normal 13-39 [facility] Comment on above: Order Comment: No: D o not add to previous draw Performed By: #### 0 0121, [id number], [id number] ####[facility] [place] [address], [place] Bilirubin mass conc 0.8 mg/dL Normal 0.3-1.0 [facility] Comment on above: Order Comment: No: D o not add to previous draw Performed By: #### 0 0121, 37717, 20775 ####[facility] [place] [address], [place] Calcium mass conc 8.8 mg/dL Normal 8.6-10.3 [facility] Comment on above: Order Comment: No: D o not add to previous draw Performed By: #### 0 0121, [id number], [id number] ####[facility] [place] [address], [place] Chloride molar conc 103 mmol/L Normal 98-107 [facility] Comment on above: Order Comment: No: D o not add to previous draw Performed By: #### 0 0121, 04459, 95432 ####[facility] [place] [address], [place] CO2 molar conc 28 mmol/L Normal 21-31 [facility] Comment on above: Order Comment: No: D o not add to previous draw Performed By: #### 0 0121, 68458, 55555 ####[facility] [facility] [place] [address], [facility] Creatinine mass conc 0.93 mg/dL Normal 0.70-1.30 [facility] Comment on above: Order Comment: No: D o not add to previous draw Performed By: #### 0 0121, 02844, 82565 ####[facility] [place] [address], [facility] GFR/1.73 sq M predicted among blacks MDRD vol rate/area (S/P/Bld) mL/min/{1.73_m2} Normal >60 [facility] Comment on above: Order Comment: No: D o not add to previous draw Performed By: #### 0 0121, 26660, 39902 ####[facility] [facility] [place] [address], [facility] GFR/1.73 sq M predicted among non-blacks MDRD vol rate/area (S/P/Bld) mL/min/{1.73_m2} Normal >60 [facility] Comment on above: Order Comment: No: D o not add to previous draw Performed By: #### 0 0121, 04474, 39383 ####[place] [address] [facility] [place] [address], [facility] Glucose mass conc 94 mg/dL Normal 70-100 [facility] Comment on above: Order Comment: No: D o not add to previous draw Performed By: #### 0 0121, 25276, 95167 ####[place] [address] [facility] [place] [address], [facility] Potassium molar conc 4.0 mmol/L Normal 3.5-5.1 [facility] Comment on above: Order Comment: No: D o not add to previous draw Performed By: #### 0 0121, 32886, 93008 ####[facility] [facility] Protein mass conc 6.8 g/dL Normal 6.0-8.3 [facility] Comment on above: Order Comment: No: D o not add to previous draw Performed By: #### 0 0121, 62786, 35423 ####[facility] [facility].[address] Sodium molar conc 140 mmol/L Normal 136-145 [facility] Comment on above: Order Comment: No: D o not add to previous draw Performed By: #### 0 0121, 89080, 27494 ####[facility] [facility].[address] Urea nitrogen mass conc 19 mg/dL Normal 7-25 [facility] Comment on above: Order Comment: No: D o not add to previous draw Performed By: #### 0 0121, 45914, 11531 ####[facility] [facility].[address] PROTHROMBIN TIMEon 8 INR Coag RelTime (PPP) 0.93 {INR} Normal 0.91-1.16 [facility] Comment on above: Result Comment: ACCC P RECOMMENDED INR FOR WARFARIN THERAPY CONDITION INRPROPHYLAXIS OF VENOUS THROMBOSIS 2-3(HIGH-RISK SURGERY)TREATMENT OF VENOUS THROMBOSIS 2-3TREATMENT OF PULMONARY EMBOLISM 2-3PREVENTION OF SYSTEMIC EMBOLISM: 2-3 ACUTE MYOCARDIAL INFARCTION TISSUE HEART VALVES VALVULAR HEART DISEASE ATRIAL FIBRILLATION RECURRENT SYSTEMIC EMBOLISMMECHANICAL HEART VALVE 2.5-3.5 FROM: ORAL ANTICOAGULANTS. MECHANISM OF ACTION, CLINICALEFFECTIVENESS, AND OPTIMAL THERAPEUTIC RANGE. [id number]. Performed By: #### 5 6101, 55795 ####[facility] [facility].[address] Prothrombin time (PT) Coag time (PPP) 12.5 s Normal 12.3-14.8 [facility] Comment on above: Result Comment: ALL RESULTS MUST BE INTERPRETED WITH RESPECT TO BLOOD DRAWING ARTIFACTOR DILUTION ERROR OF ANTICOAGULANT AT THE TIME OF SAMPLING. Performed By: #### 5 6101, 09790 ####[facility] [facility].[address] TROPONIN-Ion 09-10-2018 Troponin I.cardiac mass conc 0.00 ng/mL Normal 0.00-0.04 [facility] Comment on above: Order Comment: No: D o not add to previous draw Result Comment: REFE RENCE RANGES: 0.00 - 0.14 ng/ml NEGATIVE 0.15 - 0.25 ng/ml INDETERMINATE > 0.25 ng/ml INDICATIVE OF AN M.I. Performed By: #### 3 5200 ####[place] [address] [facility].[address] Troponin I.cardiac mass conc 0.00 ng/mL Normal 0.00-0.04 [facility] Comment on above: Result Comment: REFE RENCE RANGES: 0.00 - 0.14 ng/ml NEGATIVE 0.15 - 0.25 ng/ml INDETERMINATE > 0.25 ng/ml INDICATIVE OF AN M.I. Performed By: #### 0 0121, 15715, 11892 ####[facility] [facility].[address] TSH3on 09-10-2018 TSH 3RD GENERATION 1.05 uIU/mL Normal 0.34-5.60 [facility] Comment on above: Performed By: #### 0 0121, 26972, 12494 ####[facility] Vital Signs Date Time Vital Sign Value Performing Clinician Shashank linn 10-01-2023 08:20-0500 Body height 193.04 cm Sher Nahid Other [facility] [employer] Other 10-01-2023 08:20-0500 Body mass index (BMI) [Ratio] 27.75 kg/m2 Sher Whitfield Other [facility] [employer] Other 10-01-2023 08:20-0500 Body weight 103.42 kg Sher Whitfield Other [facility] [employer] Other 1960 23:00-0500 >na< Ellie Rodríguez Dept. of Dermato logy Encounters Encounter Date Encounter Type Care Provider Facility Start: 11-10-2023 End: 11-10-2023 ambulatory [facility] Start: 10-01-2023 Office outpatient ne w 30 minutes Sher Whitfield [facility] Start: 10-01-2023 End: 10-01-2023 ambulatory Sher Whitfield Facility:[facility] Start: 10-01-2023 End: 10-01-2023 ambulatory MD Kacy Jacobson Work Phone: [facility] Work Phone: Start: 10-01-2023 End: 10-01-2023 Patient encounter procedure MD Kacy Jacobson Work Phone: [facility] [place] Work Phone: Start: 04-01-2023 End: 04-01-2023 ambulatory [facility] Start: 03-24-2023 Luke Reinoso Dept. of Dermatology [...] without abnormal findings DR KACY JACOBSON . [facility] Start: 01-22-2023 End: 01-23-[address] KACY JACOBSON . Facility:[facility] Start: 01-22-2023 End: 01-23-2023 Encounter for general adult medical examination without abnormal findings DR KACY JACOBSON . Facility:[facility] Start: 12-09-2022 End: 12-10-2022 ambulatory RENUAnna ZARCO Facility:[facility] Start: 10-27-2022 End: [facility] Start: 10-08-2022 End: 10-09-2022 ambulatory [facility] Facility:[facility] Start: 09-24-2022 End: 09-25-2022 ambulatory [facility] Facility:[facility] Start: 09-10-2022 End: 09-11-2022 ambulatory [facility] Facility:[facility] Start: 09-13-2018 End: 09-14-2018 Patient encounter procedure DEFAULT PHYSICIAN Facility:[facility] Start: 09-10-2018 End: 09-14-2018 Evaluation and management of inpatient HANI CHLOÉ Facility:[facility] Start: 08-25-2018 End: 08-26-2018 Patient encounter procedure DEFAULT PHYSICIAN Facility:[facility] Procedures Date Procedure Procedure Detail Performing Clinician Start: 10-01-2023 X-ray of lumbar spin e, six views including bending views MD Kacy Jacobson Work Phone: Start: 03-24-2023 Ellie arita Start: 03-18-2023 [facility] h/n/h/f/g 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 Ayush Sorto Start: 09-13-2018 [facility] Cardi ac Rhythm, Single LIZETTE V MOUKARBEL Immunizations Immunization Date Immunization Notes Care Provider Fa cility 1960 pneumococcal conjuga te vaccine, 7 valent Ellie Rodríguez Dept. of Dermatology Payers Date Payer Category Payer Self-pay 2006 Private Health Insurance [id number] 1960 Unknown [id number] 1960 Unknown [id number] 2.16.8 [id number] 1960 Unknown [id number] 2.16.8 40.1.321037.3.579.2.647 1959 Unknown [id number] 2.16.8 40.1.221880.3.579.2.647 1959 Unknown [id number] 2.16.84 0.1.905344.3.579.2.593 1959 Unknown [id number] 2.16.84 0.1.264489.3.579.2.593 1959 Unknown [id number] 2.16.84 0.1.398182.3.579.2.593 1959 Unknown [id number] 2.16.84 0.1.121400.3.579.2.593 1959 Unknown [id number] 2.16.84 0.1.545063.3.579.2.593 1959 Unknown [id number] 2.16.84 0.1.736041.3.579.2.593 1959 Unknown [id number] 2.16.84 0.1.085247.3.579.2.593 1959 Unknown [id number] 2.16. 840.1.551430.3.579.2.356 1959 Unknown [id number] 2.16. 840.1.053404.3.579.2.356 1959 Unknown [id number] 2.16. 840.1.382146.3.579.2.356 Unknown Unknown [id number] 2.16.8 40.1.723376.3.579.2.531 Social History Date Type Detail Facility Start: 03-02-2023 Dept. of D ermatology Start: 1960 End: 1960 Sex Assigned At Male [facility] Sex Assigned At Sex Assigned At Bir th [facility] [employer] Other Goals Date Patient Goal Desired Activity /State Clinical Notes 04-01-2023 to 11-10-2023 Note Date & Type Note Facility 11-10-2023 Note [place] Electrophysiology Consult Note Reason for visit: afib [...] history was recently cardioverted by me at [facility] to SR . He states no significantly [...] rhonchi Cardiovascular Rat (more content not included)... [facility] 11-10-2023 Note Patient here for 6 m o follow up chronic afib. No recent labs or imaging. Denies chest pain, SOB, palpitations, lightheadedness/syncope, and bleeding on Xarelto. BP at home when checked averages around 120/80. Review of Systems Musculoskeletal: Positive for myalgias. All other systems reviewed and are negative. [facility] 10-01-2023 Evaluation note Encounter Date Diagnosis Assessment [...] Pain in left leg (ICD-10 - M79.605) Familio Other [id number] Note-advised to maintian compliance with [facility] Note-BP controlled -ct medications: lisinopril 10mg every day, toprol tartrate 75mg bid, xarelto 20mg, aldactone 25mg qdUnSumma Health [facility]05-17-2023 Note [id number] 1 for htn, will ct xarelto -DCCV x3 with amio, still has afib controlled rate and known hx of slow VR int0 40bpm -surgical ablation was mentioned as an option for ablation vs PPM with AVN ablation, patient does not want to consider at this time -will have him follow up in [address] [facility]-10-2023 NotePatient here for 6 mo follow up [...] myalgias. All other systems reviewed and are negative.[facility] 04-01-2023 NoteUT Electrophysiology Consult Note Reason for [...] history was recently cardioverted by me at [facility] to SR . He states no significantly [...] Hematologic/Lymphatic Hematologic/Lymphatic no swoll (more content not included)...[facility]/ADept. of Dermatology Evaluation noteNo assessment information available [facility] Work Phone: History general Narrative - Reported* Type Description Date Medical History heart disease Medical History melanoma Surgical History melanoma excision Hospitalization History see above Familio Other reason for referral (narrative)* Name Reason [...] 2023 7:32am Hospital Course Note MR[id number] [facility] Reece [facility]ogue Admitted: 09/10/2018 Discharged: 09/14/2018 Date of : 1960 Physician: Primo Glaser MD DISCHARGE SUMMARYDISCHARGE ATTENDING PHYSICIAN: Primo Glaser [facility] CARE PHYSICIAN: Dr. Jacobson at [phone].PRINCIPAL DIAGNOSIS: Atrial fibrillation/flutter, status post TEEconversion currently [...] section and content) DATE CREATED AUTHOR 10/23/2018 [facility] DATE CREATED AUTHOR AUTHOR'S ORGANIZ ATION 02/27/2023 [facility] DATE CREATED AUTHOR AUTHOR'S ORGANIZ ATION 03/25/2023 [facility] DATE CREATED AUTHOR AUTHOR'S ORGANIZ ATION 10/09/2023 [facility] DATE CREATED AUTHOR AUTHOR'S ORGANIZ ATION 11/18/2023 [facility] Care Teams (unrecognized sec tion and content) Team Status: Active Member Role Status Dates Kacy Jacobson MD Primary Care Provider Active Team Status: Inactive Member Role Status Dates Sher Whtifield MD Attending Provider Active Kacy Jacobson MD [...] BE BASED ON THE PRIMARY CLINICAL RECORDS. [facility]. provides no warranty or guarantee of the accuracy or completeness of information in this document.
--- NOTE | 2024-04-22 07:34 | MR_ITS ---
[place] [id number] Patient Name: REECE HOGUE MRN: [id number] date: 1960 Sex: M Assigned Patient Location: MRI Current Patient Location: Accession/Order Number: [id number] Exam Date: 04/22/2024 07:48 Report Date: 04/25/2024 07:04 At the request of: KACY MUHAMMAD Procedure: MR lumbar spine wo con EXAMINATION: MR lumbar spine wo con HISTORY: Spinal Stenosis Lumbar Region M48.061 ; chronic lumbar pain with pain radiating into bilateral lower legs, weakness COMPARISON: MRI L-spine 02/18/2023 TECHNIQUE: A variety of imaging planes and parameters were utilized for visualization of suspected pathology. FINDINGS: For the purposes of numbering, sagittal T2 image # 8 extends from the T12 vertebral body superiorly to the S2 level inferiorly. PARASPINAL AREA: Normal with no visible mass. BONES: No fracture, pars defect, or osseous lesion. CORD/CAUDA EQUINA: Normal caliber, contour, and signal intensity. DISC LEVELS: 12-L1: Moderate degenerative disc disease is present without visible neural impingement. L1-L2: Moderate central canal and moderate-marked left foramen narrowing. Mild right foramen narrowing. Moderate disc height reduction without significant disc bulging. Left facet moderate degenerative arthropathy. L2-L3: Marked central canal and moderate-marked bilateral foramen narrowing. Marked diffuse disc bulging with moderate disc height reduction. Moderate degenerative facet arthropathy bilaterally. L3-L4: Marked central canal and moderate-marked bilateral foramen narrowing. Marked diffuse disc bulging with moderate disc height reduction. Marked bilateral facet arthropathy. L4-L5: Marked central canal and mild bilateral foramen narrowing. Large posterior disc osteophyte complex with moderate disc height reduction. Moderate-marked bilateral facet arthropathy. L5-S1: Mild central canal and moderate-marked bilateral foramen narrowing. Moderate diffuse disc bulging with mild disc at reduction. Moderate degenerative facet arthropathy. MR/MR lumbar spine wo con IMPRESSION: 1. Marked central canal narrowing L2-3, L3-4, L4-5 with multilevel moderate-marked foramen narrowing. 2. Findings are stable to minimally progressed. No specific site of progression to account for change in patient's symptoms. Electronically authenticated by: JO RUSSELL Date: 04/25/2024 07:04
== END 2024-04-22 07:32 | disposition home or self-care (01) ==
LOC: MRI 07:31
PROVIDERS: PCP Family Medicine; Visit Provider Family Medicine
DX: M48.061 Spinal stenosis, lumbar region without neurogenic claudication (principal)
CPT/HCPCS: 72148

== ENCOUNTER 2024-05-02 12:29 | Outpatient (OUT) | payer OTHER, SELFPAY ==
--- NOTE | 2024-05-02 13:06 | P.CN_ITS ---
Consult Note: HPI Data of Consult Patient: new to practice Consult date: 05/02/24 Requesting Physician: Gold Choi MD Primary Care Provider: Ross Jacobson MD Consult Narrative Reason for consult: low back, bilateral lower extremity pain Narrative: 64yom who presents for evaluation. longstanding low back, bilateral lower extremity pain. worsened in past several months. used to walk long distances, now has significant trouble with ambulation. lumbar mri reviewed, significant for severe stenosis at l2-3, l3-4, l4-5. significant facet arthropathy at multiple lumbar levels. engaged in chiropractic therapy >6 weeks, without relief. uses tizanidine and advil. denies adverse med side effects. cc:: CC: Gold Choi MD Review of Systems ROS Status of ROS 10 or more systems reviewed and unremark able except as noted in history and below Meds Home Medications and Allergies Home Medications ?Medication ?Instructions ?Recorded ?Confirmed ?Type lisinopril 10 mg tablet mg 05/02/24 History metoprolol tartrate 75 mg tablet mg 05/02/24 History multivitamin 1 tab PO DAILY 05/02/24 05/02/24 History omega 7-xmk-usb-fish oil 1,000 mg 1 cap PO DAILY 05/02/24 05/02/24 History (120 mg-180 mg) capsule (Fish Oil) rivaroxaban 20 mg tablet (Xarelto) mg 05/02/24 History spironolactone 25 mg tablet mg 05/02/24 History Allergies Allergy/AdvReac Type Severity Reaction Status Date / Time No Known Drug Allergies Allergy Verified 05/02/24 13:03 Exam Narrative Exam Narrative: Psych-alert and oriented x 3. Attentive and appropriate, constitutionally normal, displays normal mood and affect per situation. There are no obvious deficits in memory, reasoning, or intellect.? Skin-no obvious rashes, bruising, erythema noted to the patient's area of pain.? Extremities- extremities are warm with minimal edema and palpable pulses. Lumbar-tenderness to palpation noted in the lumbar spine and paraspinal musculature. Pain is elicited with flexion, extension, and lateral rotation of the lumbar spine. Range of motion is diminished with these motions. Facet loading maneuvers are positive.? Strength-noted to be unremarkable with the exception of decreased strength rated at 4 out of 5 in bilateral quadriceps femoris, anterior tibialis. Sensory-no notable sensory deficits in the bilateral lower extremities to touch or pinprick in all dermatomal distributions with the exception to decreased sensation to the bilateral L2, 3, 4, 5 dermatomal distribution Coordination remains intact.? Gait remains non-antalgic. Assessment and Plan Assessment and Plan (1) Lumbar stenosis with neurogenic claudication: (2) Lumbar spondylosis: Plan 64yom who presents for evaluation. failed conservative measures, as noted. imaging reviewed, as noted. given symptoms and imaging, prudent to attempt bilateral l4-5 tfesi under fluoroscopic guidance. may even benefit from bilateral l3-4 tfesi under fluoroscopic guidance. he is in agreement. meds reviewed, instructed him to discontinue tizanidine since this was not helping. no additional meds. follow up after procedure.
== END 2024-05-02 12:30 | disposition home or self-care (01) ==
LOC: PM 12:29
PROVIDERS: PCP Family Medicine; Visit Provider Anesthesiology
DX: M48.062 Spinal stenosis, lumbar region with neurogenic claudication (principal); M47.816 Spondylosis without myelopathy or radiculopathy, lumbar region
CPT/HCPCS: G0463

== ENCOUNTER 2024-05-09 10:09 | Day surgery (SDC) | payer OTHER, SELFPAY ==
[2024-05-09 10:31] VITALS: BP 145/89; PULSE 74; TEMP 36.2; O2SAT 96
[2024-05-09] MEDS: 0.9 % SODIUM CHLORIDE 10 ML SYRINGE - SALINE FLUSH INJ (10:56)
[2024-05-09] MEDS: TRIAMCINOLONE ACETONIDE 40 MG/ML VIAL INJ (10:57)
[2024-05-09] MEDS: BUPIVACAINE HCL 0.25% PF 25 MG/10 ML VIAL INJ (10:57)
[2024-05-09] MEDS: IOHEXOL 240 MG/ML - 10 ML VIAL INJ (10:58)
[2024-05-09] MEDS: LIDOCAINE HCL 2% PF 100 MG/5 ML VIAL INJ (10:59)
[2024-05-09 11:01] VITALS: BP 142/90; BP 163/82; PULSE 60; PULSE 64; O2SAT 95; O2SAT 96
--- NOTE | 2024-05-09 11:01 | W.PM.PROCNOT ---
Date of procedure: 05/09/24 Pre-op diagnosis: Pain due to lumbar stenosis with neurogenic claudication Post-op diagnosis: same as pre-op Procedure: Procedure: Bilateral L4-5 transforaminal epidural steroid injection Medications: Bupivacaine 0.25% 2cc, lidocaine 2% 1cc, kenalog 80mg The patient was seen and examined in the preoperative holding area.? Informed consent was obtained and placed on the chart.? Patient was brought to the medical procedure unit and placed in the prone position where a timeout was completed verifying the correct patient, procedure site, position, and planned special equipment using sterile aseptic technique.? Under direct fluoroscopic visualization a 25-gauge Quincke tipped spinal needle was advanced at level left L4-5 to the designated neural foramen where contrast dye was injected to show adequate spread.? There was no evidence of vascular or adverse uptake.? Epidural spread was appreciated.? The above-mentioned injectate was then placed in a 1.5 mL aliquot preceded by negative aspiration.? The needle was removed. The same procedure, at the same level, was completed on the opposite side. ? Patient was taken to the postprocedural recovery area and monitored for an appropriate length of time before found suitable for discharge in the accompaniment of a responsible adult. Anesthesia: Local Surgeon: Gold Choi Pathology: none sent Condition: stable Disposition: no change
== END 2024-05-09 11:04 | disposition home or self-care (01) ==
LOC: SURGOUT 10:10
PROVIDERS: PCP Family Medicine; Visit Provider Anesthesiology
DX: M48.062 Spinal stenosis, lumbar region with neurogenic claudication (principal)
CPT/HCPCS: 64483; J0665; J3301; Q9966

== ENCOUNTER 2024-05-23 09:54 | Day surgery (SDC) | payer OTHER, SELFPAY ==
[2024-05-23 10:10] VITALS: BP 155/95; PULSE 64; TEMP 36.3; O2SAT 99
--- OUTSIDE RECORDS SUMMARY | 2024-05-23 10:14 | XMS_ITS | CCD ---
Author Organization [facility] Care Team Providers Care Manager Floor Name Role Phone PHYSICIAN, DEFAULT Unavailable Unavailable PHYSICIAN, DEFAULT Unavailable Unavailable CHLOÉ, HANI Unavailable Unavailable YURY FUNEZ AM Unavailable Unavailable KACY JACOBSON Unavailable Unavailable RODOLFOPRIMO COLLAZO R Unavailable Unavailable ME Unavailable Unavailable UNKNOWN, PROVIDER Unavailable Unavailable PHYSICIAN, DEFAULT Unavailable Unavailable PHYSICIAN, DEFAULT Unavailable Unavailable SABINA KACY Unavailable Unavailable ASHLEIGH ZARCOA Consulting Unavailable HOY ., DR WOODRUFF Primary Care Unavailable HAROLDO, RENU Admitting Unavailable HAROLDOASHLEIGHA Attending Unavailable RENU ZARCO Attending Unavailable HAROLDO, [...] Unavailable ZIEBER, DR JO Brody Consulting Unavailable Rodríguez, Ellie Unavailable Unavailable Luke Reinoso Unavailable Unavailable UNKNOWN, PCP Primary Care Unavailable Luke Reinoso Attending Unavailable UNKNOWN, UNKNOWN Referring Unavailable UNKNOWN, PCP Primary Care Unavailable Bedocs, Dr. Randy Paige Referring Unavail able Luke Reinoso Attending Unavailable UNKNOWN, PCP Primary Care Unavailable Jaimee Negrete Attending Unavailable Luke Reinoso Referring Unavailable MD Sher Whitfield Attending Provider MD Kacy Jacobson Primary Care Provider [phone] Sher Whitfield Unavailable Sher Whitfield Attending Unavailable Sher Whitfield Admitting Unavailable Kacy Jacobson Primary Care Unavailable KATHE DE DIOS Attending Unavailable RANDY CARRANZA Attending Unavailable Steph ENGEL, Gold Boles Attending Unavailable Steph ENGEL, Gold Boles Attending Unavailable Allergies Allergy Classification Reported Allergen(s) [...] Onset: 09-10-2022 Chronic Other aftercare (1 source) [facility] (current) use of anticoagulants; 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: [RESIDENTIAL (CURRENT) USE OF ANTICOAGULANTS] Onset: 09-10-2018 Episodic [...] Range Facility Office Visiton 11-10-2023 Follow-up visit [id number] Susanna Hogue D 1960 M Date Provider Department Center 11/10/2023 RANDY [facility] Family History Problem Relation Age of Onset Heart attack Maternal Grandfather Family Status - Relation Status Age at Maternal Grandfather Level of Service:19630 ME OFFICE/OUTPATIENT ESTABLISHED LOW MDM 20 MIN Normal [facility] Orders Onlyon 11-10-2023 Orders Only [id number] Susanna Hogue D 1960 M Date Provider Department Center 11/10/2023 CRISTINO AYALA [facility] Family History Problem Relation Age of Onset Heart attack Maternal Grandfather Family Status - Relation Status Age at Maternal Grandfather [facility] XR lumbar spine 6V w bending on 10-01-2023 XR lumbar spine 6V w bending [facility] [place] [address] [place] [address] XRay Report Signed Patient: Reece Hogue MR#: [id number] : 1960 Acct:[id number] Age/Sex: 63 / M ADM Date: 10/01/23 Loc: XD Room: Type: [facility] Attending Dr: Sher Whitfield MD Copies to: [...] Nila Christensen M.D.10/01/2023 12:35 PM Dictation Location: [place] [address] Transcribed By: [facility] 10/01/23 1235 Dictated By: Nila Christensen MD 10/01/23 1226 Signed By: 10/01/23 1235 [facility] Office Visiton 04-01-2023 Follow-up visit [id number] Susanna Hogue naldo Greenberg 1960 M Date Provider Department Center 04/01/2023 1596-KATHE DE DIOS BH CARD [facility] Family History Problem Relation Age of Onset Heart attack Maternal Grandfather Family Status - Relation Status Age at Maternal Grandfather Level of Service:96353 ME OFFICE/OUTPATIENT ESTABLISHED MOD MDM 30-39 MIN Reason for Visit and Comments: Atrial Fibrillation [80] Hypertension [149930] Normal [facility] Dermatopathologyon 3 Dermatopathology Name: REECE HOGUE Pathologist: JAIMEE NEGRETE MD Date of Procedure: 02/24/2023 Date Received: 02/24/2023 Date Reported 02/25/2023 Submitting Physician: LUKE REINOSO MD, Location: [facility] Copy To/Referring/Attending: MD KAUR PERDOMO FINAL DIAGNOSIS 4 SLIDES, [facility], #[id number] (BX: 02/03/2023) SKIN, LEFT NASAL SIDEWALL, SHAVE [...] REPORT A. 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 Slide/Block Description 4 SLIDES, [id number]. Keep Slides: N Slides Returned: N Personal Consult: N Normal [facility] Comment on above: Performed By: #### D [...] JO RUSSELL Date: 2023-02-18 14:29 Normal [facility] INSULINon 01-23-2023 Insulin 7.9 uIU/mL Normal 2.6-24.9 [facility] Comment on above: Performed By: #### T 7, URIC, TSH, CMP, LIPID #### [facility] [address] [place] [address] [address] Ayush Sorto CBC AUTO DIFFon 01-22-2023 BASO # 0.0 103/ul Normal 0.0-0.1 [facility] Comment on above: Performed By: #### C BC #### [facility] [address] [place] [address] [address] Ayush Sorto Basophils/100 WBC (Bld) 0.6 % Normal 0.2-2.0 [facility] Comment on above: Performed By: #### C BC #### [facility] [address] [place] [address] [address] Ayush Sorto EO # 0.2 103/ul Normal 0.0-0.7 [facility] Comment on above: Performed By: #### C BC #### [facility] [address] [address] [address] Ayush Sorto Eosinophils/100 WBC (Bld) 2.3 % Normal 0.9-7.0 [facility] Comment on above: Performed By: #### C BC #### [facility] [address] [place] [address] Dr. Ayush Sorto Erythrocyte distribution width (RBC) [Ratio] 13.2 % Normal 11.0-15.0 [facility] Comment on above: Performed By: #### C BC #### [facility] [address] [place] [address] Dr. Ayush Sorto Hematocrit (Bld) [Volume fraction] 48.6 % Normal 42.0-54.0 [facility] Comment on above: Performed By: #### C BC #### [facility] [address] [place] [address] Dr. Ayush Sorto Hemoglobin (Bld) [Mass/Vol] 16.4 g/dL Normal 14.0-18.0 [facility] Comment on above: Performed By: #### C BC #### [facility] [address] [place] [address] Dr. Ayush Sorto IG # 0.02 10e3/ul Normal 0.00-0.03 [facility] Comment on above: Performed By: #### C BC #### [facility] [address] [place] [address] Dr. Ayush Sorto IG % 0.3 % Normal 0.0-0.5 [facility] Comment on above: Performed By: #### C BC #### [facility] [address] [place] [address] Dr. Ayush Sorto LYMPH # 1.6 103/ul Normal 1.2-3.8 [facility] Comment on above: Performed By: #### C BC #### [facility] [address] [place] [address] Dr. Ayush Sorto Lymphocytes/100 WBC (Bld) 24.7 % Normal 20.5-60.0 [facility] Comment on above: Performed By: #### C BC #### [facility] [address] [place] [address] Dr. Ayush Sorto MANUAL DIFF REQ NO Normal [facility] Comment on above: Performed By: #### C BC #### [facility] [address] [address] [address] Ayush Sorto MCH (RBC) [Entitic mass] 30.0 pg Normal 25.9-34.0 [facility] Comment on above: Performed By: #### C BC #### [facility] [address] [place] [address] Dr. Ayush Sorto MCHC (RBC) [Mass/Vol] 33.7 g/dL Normal 29.9-35.2 [facility] Comment on above: Performed By: #### C BC #### [facility] [address] [place] [address] Dr. Ayush Sorto MCV (RBC) [Entitic vol] 89.0 fL Normal 80.0-94.0 [facility] Comment on above: Performed By: #### C BC #### [facility] [address] [place] [address] Dr. Ayush Sorto MONO # 0.7 103/ul Normal 0.3-0.8 [facility] Comment on above: Performed By: #### C BC #### [facility] [address] [place] [address] Dr. Ayush Sorto Monocytes/100 WBC (Bld) 10.1 % Normal 1.7-12.0 [facility] Comment on above: Performed By: #### C BC #### [facility] [address] [place] [address] Dr. Ayush Sorto NEUT # 4.1 103/ul Normal 1.4-6.5 [facility] Comment on above: Performed By: #### C BC #### [facility] [address] [place] [address] Dr. Ayush Sorto Neutrophils/100 WBC (Bld) 62.0 % Normal 43.0-75.0 [facility] Comment on above: Performed By: #### C BC #### [facility] [address] [place] [address] Dr. Ayush Sorto Platelet mean volume (Bld) [Entitic vol] 8.6 fL Critically low 9.5-13.5 [facility] Comment on above: Performed By: #### C BC #### [facility] [address] [address] [address] Ayush Sorto PLT 248 103/ul Normal 150-450 [facility] Comment on above: Performed By: #### C BC #### [facility] [address] [address] [address] Ayush Sorto RBC 5.46 106/ul Normal 4.70-6.10 [facility] Comment on above: Performed By: #### C BC #### [facility] [address] [address] [address] Ayush Sorto WBC 6.6 103/ul Normal 4.0-11.0 [facility] Comment on above: Performed By: #### C BC #### [facility] [address] [place] [address] Dr. Ayush Sorto FREE THYROXINE INDEX T7on FTI 3.31 Normal 1.30-4.50 [facility] Comment on above: Performed By: #### T 7, URIC, TSH, CMP, LIPID #### [facility] [address] [place] [address] Dr. Ayush Sorto T3U 36.0 % Normal 33.0-40.0 [facility] Comment on above: Performed By: #### T 7, URIC, TSH, CMP, LIPID #### [facility] [address] [place] [address] Dr. Ayush Sorto T4 [Mass/Vol] 9.20 ug/dL Normal 4.50-12.10 [facility] Comment on above: Performed By: #### T 7, URIC, TSH, CMP, LIPID #### [facility] [address] [place] [address] Dr. Ayush Sorto GLYCOHEMOGLOBIN A1Con 2022 ADA RECOMMENDATION SEE BELOW Normal [facility] Comment on above: Result Comment: ADA RECOMMENDED LIMIT 4.0 - 6.0 ADA THERAPEUTIC TARGET < 7.0 ACTION SUGGESTED > 7.0 Performed By: #### T 7, URIC, TSH, CMP, LIPID #### [facility] [address] [address] [address] Ayush Sorto Glucose [Mass/Vol] 117 mg/dL Normal [facility] Comment on above: Performed By: #### T 7, URIC, TSH, CMP, LIPID #### [facility] [address] [place] [address] Dr. Ayush Sorto HbA1c (Bld) [Mass fraction] 5.7 % Normal 4.5-6.2 [facility] Comment on above: Performed By: #### T 7, URIC, TSH, CMP, LIPID #### [facility] [address] [place] [address] Dr. Ayush Sorto LIPID PROFILEon 01-22-2023 CHOL-HDL RATIO NORM SEE BELOW Normal [facility] Comment on above: Result Comment: 3.3 - 4.4 LOW RISK 4.4 - 7.1 AVERAGE RISK 7.1 - 11.0 MODERATE RISK >11.0 HIGH RISK Performed By: #### T 7, URIC, TSH, CMP, LIPID #### [facility] [address] [place] [address] Dr. Ayush Sorto Cholesterol [Mass/Vol] 216 mg/dL Critically high <=200 [facility] Comment on above: Performed By: #### T 7, URIC, TSH, CMP, LIPID #### [facility] [address] [place] [address] Dr. Ayush Sorto Cholesterol in HDL [Mass/Vol] 68 mg/dL Critically high 40-60 [facility] Comment on above: Performed By: #### T 7, URIC, TSH, CMP, LIPID #### [facility] [address] [place] [address] Dr. Ayush Sorto Cholesterol in LDL [Mass/Vol] 136.6 mg/dL Normal [facility] Comment on above: Performed By: #### T 7, URIC, TSH, CMP, LIPID #### [facility] [address] [place] [address] Dr. Ayush Sorto Cholesterol.total/C holesterol in HDL [Mass ratio] 3.2 {ratio} Normal [facility] Comment on above: Performed By: #### T 7, URIC, TSH, CMP, LIPID #### [facility] [address] [address] [address] Ayush Sorto HDL NORMAL > or = 60 mg/dl - LO W CARDIOVASCULAR RISK <40 mg/dl - HIGH CARDIOVASCULAR RISK Normal [facility] Comment on above: Performed By: #### T 7, URIC, TSH, CMP, LIPID #### [facility] [address] [address] [address] Ayush Sorto LDL CALC NORMAL SEE BELOW Normal [facility] Comment on above: Result Comment: <100 mg/dl OPTIMAL 100 - 129 mg/dl NEAR OR ABOVE OPTIMAL 130 - 159 mg/dl BORDERLINE HIGH 160 - 189 mg/dl HIGH >190 mg/dl VERY HIGH Performed By: #### T 7, URIC, TSH, CMP, LIPID #### [facility] [address] [address] [address] Ayush Sorto Triglyceride [Mass/Vol] 57 mg/dL Normal <=150 [facility] Comment on above: Performed By: #### T 7, URIC, TSH, CMP, LIPID #### [facility] [address] [place] [address] Dr. Ayush Sorto VLDL CALC 11.4 mg/dL Normal [facility] Comment on above: Performed By: #### T 7, URIC, TSH, CMP, LIPID #### [facility] [address] [place] [address] Dr. Ayush Sorto PROF 14(COMP METB)on 023 Albumin [Mass/Vol] 4.0 g/dL Normal 3.4-5.0 [facility] Comment on above: Performed By: #### T 7, URIC, TSH, CMP, LIPID #### [facility] [address] [place] [address] Dr. Ayush Sorto Albumin/Globulin [Mass ratio] 1.2 {ratio} Normal [facility] Comment on above: Performed By: #### T 7, URIC, TSH, CMP, LIPID #### [facility] [address] [place] [address] Dr. Ayush Sorto ALP [Catalytic activity/Vol] 85 U/L Normal 46-116 [facility] Comment on above: Performed By: #### T 7, URIC, TSH, CMP, LIPID #### [facility] [address] [address] [address] Ayush Sorto ALT [Catalytic activity/Vol] 28 U/L Normal 16-63 [facility] Comment on above: Performed By: #### T 7, URIC, TSH, CMP, LIPID #### [facility] [address] [place] [address] Dr. Ayush Sorto Anion gap [Moles/Vol] 12.9 mmol/L Normal [facility] Comment on above: Performed By: #### T 7, URIC, TSH, CMP, LIPID #### [facility] [address] [place] [address] Dr. Ayush Sorto AST [Catalytic activity/Vol] 23 U/L Normal 15-37 [facility] Comment on above: Performed By: #### T 7, URIC, TSH, CMP, LIPID #### [facility] [address] [place] [address] Dr. Ayush Sorto Bilirubin [Mass/Vol] 1.1 mg/dL Critically high 0.2-1.0 [facility] Comment on above: Performed By: #### T 7, URIC, TSH, CMP, LIPID #### [facility] [address] [place] [address] Dr. Ayush Sorto Calcium [Mass/Vol] 9.2 mg/dL Normal 8.5-10.1 [facility] Comment on above: Performed By: #### T 7, URIC, TSH, CMP, LIPID #### [facility] [address] [place] [address] Dr. Ayush Sorto Chloride [Moles/Vol] 103 mmol/L Normal 98-107 [facility] Comment on above: Performed By: #### T 7, URIC, TSH, CMP, LIPID #### [facility] [address] [place] [address] Dr. Ayush Sorto CO2 [Moles/Vol] 27.9 mmol/L Normal 21.0-32.0 [facility] Comment on above: Performed By: #### T 7, URIC, TSH, CMP, LIPID #### [facility] [address] [address] [address] Ayush Sorto Creatinine [Mass/Vol] 0.88 mg/dL Normal 0.70-1.30 [facility] Comment on above: Performed By: #### T 7, URIC, TSH, CMP, LIPID #### [facility] [address] [address] [address] Ayush Sorto EGFR-AF KENYAN >60 Normal >=60 [facility] Comment on above: Performed By: #### T 7, URIC, TSH, CMP, LIPID #### [facility] [address] [address] [address] Ayush Sorto EGFR-NON AF KENYAN >60 Normal >=60 [facility] Comment on above: Performed By: #### T 7, URIC, TSH, CMP, LIPID #### [facility] [address] [place] [address] Dr. Ayush Sorto Globulin (S) [Mass/Vol] 3.4 g/dL Normal [facility] Comment on above: Performed By: #### T 7, URIC, TSH, CMP, LIPID #### [facility] [address] [address] [address] Ayush Sorto Glucose [Mass/Vol] 93 mg/dL Normal 74-106 [facility] Comment on above: Performed By: #### T 7, URIC, TSH, CMP, LIPID #### [facility] [address] [place] [address] Dr. Ayush Sorto Potassium [Moles/Vol] 4.8 mmol/L Normal 3.5-5.1 [facility] Comment on above: Performed By: #### T 7, URIC, TSH, CMP, LIPID #### [facility] [address] [place] [address] Dr. Ayush Sorto Protein [Mass/Vol] 7.4 g/dL Normal 6.4-8.2 [facility] Comment on above: Performed By: #### T 7, URIC, TSH, CMP, LIPID #### [facility] [address] [place] [address] Dr. Ayush Sorto Sodium [Moles/Vol] 139 mmol/L Normal 136-145 [facility] Comment on above: Performed By: #### T 7, URIC, TSH, CMP, LIPID #### [facility] [address] [place] [address] Dr. Ayush Sorto Urea nitrogen [Mass/Vol] 23.0 mg/dL Critically high 7.0-18.0 [facility] Comment on above: Performed By: #### T 7, URIC, TSH, CMP, LIPID #### [facility] [address] [place] [address] Dr. Ayush Sorto Urea nitrogen/Creatinine [Mass ratio] 26.1 mg/mg Normal [facility] Comment on above: Performed By: #### T 7, URIC, TSH, CMP, LIPID #### [facility] [address] [place] [address] Dr. Ayush Sorto TSHon 01-22-2023 TSH 1.145 uIU/mL Normal 0.358-3.74 0 [facility] Comment on above: Performed By: #### T 7, URIC, TSH, CMP, LIPID #### [facility] [address] [place] [address] Dr. Ayush Sorto URIC ACID SERUMon 01-22-2023 Urate [Mass/Vol] 6.8 mg/dL Normal 3.5-7.2 [facility] Comment on above: Performed By: #### T 7, URIC, TSH, CMP, LIPID #### [facility] [address] [place] [address] Dr. Ayush Sorto VITAMIN D 25 OHon 01-22-2023 VIT D 25-OH 72.7 ng/mL Normal [facility] Comment on above: Performed By: #### V ITAD, PSASC #### [facility] [address] [place] [address] Dr. Ayush Sorto VIT D RANGES SEE BELOW Normal [facility] Comment on above: Result Comment: <20 ng/mL Vit D deficient 20 - <30 ng/mL Vit D insufficient 30 - 100 ng/mL Vit D sufficient >100 ng/mL Potential Toxicity Performed By: #### V ITAD, PSASC #### [facility] [address] [place] [address] Dr. Ayush Sorto PROF CHEM 8 (BAS METB)on Anion gap [Moles/Vol] 10.1 mmol/L Normal [facility] Comment on above: Performed By: #### T 7, URIC, TSH, CMP, LIPID #### [facility] [address] [place] [address] Dr. Ayush Sorto Calcium [Mass/Vol] 9.3 mg/dL Normal 8.5-10.1 [facility] Comment on above: Performed By: #### T 7, URIC, TSH, CMP, LIPID #### [facility] [address] [place] [address] Dr. Ayush Sorto Chloride [Moles/Vol] 102 mmol/L Normal 98-107 [facility] Comment on above: Performed By: #### T 7, URIC, TSH, CMP, LIPID #### [facility] [address] [place] [address] Dr. Ayush Sorto CO2 [Moles/Vol] 31.8 mmol/L Normal 21.0-32.0 [facility] Comment on above: Performed By: #### T 7, URIC, TSH, CMP, LIPID #### [facility] [address] [place] [address] Dr. Ayush Sorto Creatinine [Mass/Vol] 1.03 mg/dL Normal 0.70-1.30 [facility] Comment on above: Performed By: #### T 7, URIC, TSH, CMP, LIPID #### [facility] [address] [place] [address] Dr. Ayush Sorto EGFR-AF KENYAN >60 Normal >=60 [facility] Comment on above: Performed By: #### T 7, URIC, TSH, CMP, LIPID #### [facility] [address] [place] [address] Dr. Ayush Sorto EGFR-NON AF KENYAN >60 Normal >=60 [facility] Comment on above: Performed By: #### T 7, URIC, TSH, CMP, LIPID #### [facility] [address] [place] [address] Dr. Ayush Sorto Glucose [Mass/Vol] 121 mg/dL Critically high 74-106 [facility] Comment on above: Performed By: #### T 7, URIC, TSH, CMP, LIPID #### [facility] [address] [address] [address] Ayush Sorto Potassium [Moles/Vol] 4.9 mmol/L Normal 3.5-5.1 [facility] Comment on above: Performed By: #### T 7, URIC, TSH, CMP, LIPID #### [facility] [address] [address] [address] Ayush Sorto Sodium [Moles/Vol] 139 mmol/L Normal 136-145 [facility] Comment on above: Performed By: #### T 7, URIC, TSH, CMP, LIPID #### [facility] [address] [place] [address] Dr. Ayush Sorto Urea nitrogen [Mass/Vol] 15.0 mg/dL Normal 7.0-18.0 [facility] Comment on above: Performed By: #### T 7, URIC, TSH, CMP, LIPID #### [facility] [address] [place] [address] Dr. Ayush Sorto Urea nitrogen/Creatinine [Mass ratio] 14.6 mg/mg Normal [facility] Comment on above: Performed By: #### T 7, URIC, TSH, CMP, LIPID #### [facility] [address] [place] [address] Dr. Ayush Sorto ECHOCARDIO M/2D COMPLETEon 1 11-24-2021 ECHOCARDIO M/2D COMPLETE Patient: REECE HOGUE Exam Date: 09/24/2022 : 1960 Gender:M Ordering : RENU ZARCO [facility] Admission #: [id number] Family : DR KACY JACOBSON . Order #: [id number] CLICK HERE TO VIEW EXAM ECHOCARDIOGRAM REPORT [...] M.D. on 09/24/2022 at 16:24 Normal [facility] CBC AUTO DIFFon 09-10-2022 BASO # 0.1 103/ul Normal 0.0-0.1 [facility] Comment on above: Performed By: #### C BC #### [facility] [address] [address] [address] Ayush Sorto Basophils/100 WBC (Bld) 0.8 % Normal 0.2-2.0 [facility] Comment on above: Performed By: #### C BC #### [facility] [address] [address] [address] Ayush Sorto EO # 0.1 103/ul Normal 0.0-0.7 [facility] Comment on above: Performed By: #### C BC #### [facility] [address] [place] [address] Dr. Ayush Sorto Eosinophils/100 WBC (Bld) 1.3 % Normal 0.9-7.0 [facility] Comment on above: Performed By: #### C BC #### [facility] [address] [place] [address] Dr. Ayush Sorto Erythrocyte distribution width (RBC) [Ratio] 12.8 % Normal 11.0-15.0 [facility] Comment on above: Performed By: #### C BC #### [facility] [address] [place] [address] Dr. Ayush Sorto Hematocrit (Bld) [Volume fraction] 48.5 % Normal 42.0-54.0 [facility] Comment on above: Performed By: #### C BC #### [facility] [address] [place] [address] Dr. Ayush Sorto Hemoglobin (Bld) [Mass/Vol] 16.2 g/dL Normal 14.0-18.0 [facility] Comment on above: Performed By: #### C BC #### [facility] [address] [place] [address] Dr. Ayush Sorto IG # 0.01 10e3/ul Normal 0.00-0.03 [facility] Comment on above: Performed By: #### C BC #### [facility] [address] [place] [address] Dr. Ayush Sorto IG % 0.2 % Normal 0.0-0.5 [facility] Comment on above: Performed By: #### C BC #### [facility] [address] [place] [address] Dr. Ayush Sorto LYMPH # 1.0 103/ul Critically low 1.2-3.8 [facility] Comment on above: Performed By: #### C BC #### [facility] [address] [place] [address] Dr. Ayush Sorto Lymphocytes/100 WBC (Bld) 15.6 % Critically low 20.5-60.0 [facility] Comment on above: Performed By: #### C BC #### [facility] [address] [place] [address] Dr. Ayush Sorto MANUAL DIFF REQ NO Normal [facility] Comment on above: Performed By: #### C BC #### [facility] [address] [place] [address] Dr. Ayush Sorto MCH (RBC) [Entitic mass] 30.5 pg Normal 25.9-34.0 [facility] Comment on above: Performed By: #### C BC #### [facility] [address] [place] [address] Dr. Ayush Sorto MCHC (RBC) [Mass/Vol] 33.4 g/dL Normal 29.9-35.2 [facility] Comment on above: Performed By: #### C BC #### [facility] [address] [place] [address] Dr. Ayush Sorto MCV (RBC) [Entitic vol] 91.3 fL Normal 80.0-94.0 [facility] Comment on above: Performed By: #### C BC #### [facility] [address] [place] [address] Dr. Ayush Sorto MONO # 0.6 103/ul Normal 0.3-0.8 [facility] Comment on above: Performed By: #### C BC #### [facility] [address] [place] [address] Dr. Ayush Sorto Monocytes/100 WBC (Bld) 9.2 % Normal 1.7-12.0 [facility] Comment on above: Performed By: #### C BC #### [facility] [address] [place] [address] Dr. Ayush Sorto NEUT # 4.5 103/ul Normal 1.4-6.5 [facility] Comment on above: Performed By: #### C BC #### [facility] [address] [place] [address] Dr. Ayush Sroto Neutrophils/100 WBC (Bld) 72.9 % Normal 43.0-75.0 [facility] Comment on above: Performed By: #### C BC #### [facility] [address] [address] [address] Ayush Sorto Platelet mean volume (Bld) [Entitic vol] 8.9 fL Critically low 9.5-13.5 [facility] Comment on above: Performed By: #### C BC #### [facility] [address] [address] [address] Ayush Sorto PLT 226 103/ul Normal 150-450 [facility] Comment on above: Performed By: #### C BC #### [facility] [address] [address] [address] Ayush Sorto RBC 5.31 106/ul Normal 4.70-6.10 [facility] Comment on above: Performed By: #### C BC #### [facility] [address] [address] [address] Ayush Sorto WBC 6.2 103/ul Normal 4.0-11.0 [facility] Comment on above: Performed By: #### C BC #### [facility] [address] [address] [address] Ayush Sorto LIPID PROFILEon 09-10-2022 CHOL-HDL RATIO NORM SEE BELOW Normal [facility] Comment on above: Result Comment: 3.3 - 4.4 LOW RISK 4.4 - 7.1 AVERAGE RISK 7.1 - 11.0 MODERATE RISK >11.0 HIGH RISK Performed By: #### T 7, URIC, TSH, CMP, LIPID #### [facility] [address] [address] [address] Ayush Sorto Cholesterol [Mass/Vol] 206 mg/dL Critically high <=200 [facility] Comment on above: Performed By: #### T 7, URIC, TSH, CMP, LIPID #### [facility] [address] [address] [address] Ayush Sorto Cholesterol in HDL [Mass/Vol] 73 mg/dL Critically high 40-60 [facility] Comment on above: Performed By: #### T 7, URIC, TSH, CMP, LIPID #### [facility] [address] [address] [address] Ayush Sorto Cholesterol in LDL [Mass/Vol] 123.2 mg/dL Normal [facility] Comment on above: Performed By: #### T 7, URIC, TSH, CMP, LIPID #### [facility] [address] [address] [address] Ayush Sorto Cholesterol.total/C holesterol in HDL [Mass ratio] 2.8 {ratio} Normal [facility] Comment on above: Performed By: #### T 7, URIC, TSH, CMP, LIPID #### [facility] [address] [address] [address] Ayush Sorto HDL NORMAL > or = 60 mg/dl - LO W CARDIOVASCULAR RISK <40 mg/dl - HIGH CARDIOVASCULAR RISK Normal [facility] Comment on above: Performed By: #### T 7, URIC, TSH, CMP, LIPID #### [facility] [address] [place] [address] Dr. Ayush Sorto LDL CALC NORMAL SEE BELOW Normal [facility] Comment on above: Result Comment: <100 mg/dl OPTIMAL 100 - 129 mg/dl NEAR OR ABOVE OPTIMAL 130 - 159 mg/dl BORDERLINE HIGH 160 - 189 mg/dl HIGH >190 mg/dl VERY HIGH Performed By: #### T 7, URIC, TSH, CMP, LIPID #### [facility] [address] [place] [address] Dr. Ayush Sorto Triglyceride [Mass/Vol] 49 mg/dL Normal <=150 [facility] Comment on above: Performed By: #### T 7, URIC, TSH, CMP, LIPID #### [facility] [address] [place] [address] Dr. Ayush Sorto VLDL CALC 9.8 mg/dL Normal [facility] Comment on above: Performed By: #### T 7, URIC, TSH, CMP, LIPID #### [facility] [address] [address] [address] Ayush Sorto PROF 14(COMP METB)on 022 Albumin [Mass/Vol] 4.0 g/dL Normal 3.4-5.0 [facility] Comment on above: Performed By: #### T 7, URIC, TSH, CMP, LIPID #### [facility] [address] [place] [address] Dr. Ayush Sorto Albumin/Globulin [Mass ratio] 1.2 {ratio} Normal [facility] Comment on above: Performed By: #### T 7, URIC, TSH, CMP, LIPID #### [facility] [address] [place] [address] Dr. Ayush Sorto ALP [Catalytic activity/Vol] 83 U/L Normal 46-116 [facility] Comment on above: Performed By: #### T 7, URIC, TSH, CMP, LIPID #### [facility] [address] [place] [address] Dr. Ayush Sorto ALT [Catalytic activity/Vol] 35 U/L Normal 16-63 [facility] Comment on above: Performed By: #### T 7, URIC, TSH, CMP, LIPID #### [facility] [address] [place] [address] Dr. Ayush Sorto Anion gap [Moles/Vol] 9.0 mmol/L Normal [facility] Comment on above: Performed By: #### T 7, URIC, TSH, CMP, LIPID #### [facility] [address] [place] [address] Dr. Ayush Sorto AST [Catalytic activity/Vol] 26 U/L Normal 15-37 [facility] Comment on above: Performed By: #### T 7, URIC, TSH, CMP, LIPID #### [facility] [address] [place] [address] Dr. Ayush Sorto Bilirubin [Mass/Vol] 1.0 mg/dL Normal 0.2-1.0 [facility] Comment on above: Performed By: #### T 7, URIC, TSH, CMP, LIPID #### [facility] [address] [place] [address] Dr. Ayush Sorto Calcium [Mass/Vol] 9.5 mg/dL Normal 8.5-10.1 [facility] Comment on above: Performed By: #### T 7, URIC, TSH, CMP, LIPID #### [facility] [address] [place] [address] Dr. Ayush Sorto Chloride [Moles/Vol] 105 mmol/L Normal 98-107 [facility] Comment on above: Performed By: #### T 7, URIC, TSH, CMP, LIPID #### [facility] [address] [address] [address] Ayush Sorto CO2 [Moles/Vol] 27.7 mmol/L Normal 21.0-32.0 [facility] Comment on above: Performed By: #### T 7, URIC, TSH, CMP, LIPID #### [facility] [address] [place] [address] Dr. Ayush Sorto Creatinine [Mass/Vol] 0.90 mg/dL Normal 0.70-1.30 [facility] Comment on above: Performed By: #### T 7, URIC, TSH, CMP, LIPID #### [facility] [address] [place] [address] Dr. Ayush Sorto EGFR-AF KENYAN >60 Normal >=60 [facility] Comment on above: Performed By: #### T 7, URIC, TSH, CMP, LIPID #### [facility] [address] [place] [address] Dr. Ayush Sorto EGFR-NON AF KENYAN >60 Normal >=60 [facility] Comment on above: Performed By: #### T 7, URIC, TSH, CMP, LIPID #### [facility] [address] [place] [address] Dr. Ayush Sorto Globulin (S) [Mass/Vol] 3.3 g/dL Normal [facility] Comment on above: Performed By: #### T 7, URIC, TSH, CMP, LIPID #### [facility] [address] [place] [address] Dr. Ayush Sorto Glucose [Mass/Vol] 105 mg/dL Normal 74-106 [facility] Comment on above: Performed By: #### T 7, URIC, TSH, CMP, LIPID #### [facility] [address] [place] [address] Dr. Ayush Sorto Potassium [Moles/Vol] 4.7 mmol/L Normal 3.5-5.1 [facility] Comment on above: Performed By: #### T 7, URIC, TSH, CMP, LIPID #### [facility] [address] [address] [address] Ayuhs Sorot Protein [Mass/Vol] 7.3 g/dL Normal 6.4-8.2 [facility] Comment on above: Performed By: #### T 7, URIC, TSH, CMP, LIPID #### [facility] [address] [address] [address] Ayush Sorto Sodium [Moles/Vol] 137 mmol/L Normal 136-145 [facility] Comment on above: Performed By: #### T 7, URIC, TSH, CMP, LIPID #### [facility] [address] [address] [address] Ayush Sorto Urea nitrogen [Mass/Vol] 19.0 mg/dL Critically high 7.0-18.0 [facility] Comment on above: Performed By: #### T 7, URIC, TSH, CMP, LIPID #### [facility] [address] [address] [address] Ayush Sorto Urea nitrogen/Creatinine [Mass ratio] 21.1 mg/mg Normal [facility] Comment on above: Performed By: #### T 7, URIC, TSH, CMP, LIPID #### [facility] [address] [address] [address] Ayush Sorto BASIC METABOLIC PANELon 10-2 Calcium mass conc 9.3 mg/dL Normal 8.6-10.3 [facility] Comment on above: Order Comment: No: D o not add to previous draw Performed By: #### 0 0121, 41463, 06670 ####[facility] [facility] [place] [address], [facility] Chloride molar conc 102 mmol/L Normal 98-107 [facility] Comment on above: Order Comment: No: D o not add to previous draw Performed By: #### 0 0121, 22321, 80696 ####[facility] [place] [address], [place] CO2 molar conc 27 mmol/L Normal 21-31 [facility] Comment on above: Order Comment: No: D o not add to previous draw Performed By: #### 0 0121, 50343, 39325 ####[facility] [address], [facility] Creatinine mass conc 0.73 mg/dL Normal 0.70-1.30 [facility] Comment on above: Order Comment: No: D o not add to previous draw Performed By: #### 0 0121, 75452, 33155 ####[facility] [address], [facility] GFR/1.73 sq M predicted among blacks MDRD vol rate/area (S/P/Bld) mL/min/{1.73_m2} Normal >60 [facility] Comment on above: Order Comment: No: D o not add to previous draw Performed By: #### 0 0121, 47225, 72009 ####[facility] [place] [address], [facility] GFR/1.73 sq M predicted among non-blacks MDRD vol rate/area (S/P/Bld) mL/min/{1.73_m2} Normal >60 [facility] Comment on above: Order Comment: No: D o not add to previous draw Performed By: #### 0 0121, 69992, 22519 ####[facility] [address], [facility] Glucose mass conc 109 mg/dL High 70-100 [facility] Comment on above: Order Comment: No: D o not add to previous draw Performed By: #### 0 0121, 21119, 91919 ####[facility] [address], [facility] Potassium molar conc 4.1 mmol/L Normal 3.5-5.1 [facility] Comment on above: Order Comment: No: D o not add to previous draw Performed By: #### 0 0121, 02262, 39526 ####[facility] Sodium molar conc 136 mmol/L Normal 136-145 [facility] Comment on above: Order Comment: No: D o not add to previous draw Performed By: #### 0 0121, 20410, 76556 ####[facility] Urea nitrogen mass conc 10 mg/dL Normal 7-25 [facility] Comment on above: Order Comment: No: D o not add to previous draw Performed By: #### 0 0121, 82835, 49082 ####[facility] [facility] CBC COMPLETE BLOOD COUNTon Erythrocyte distribution width Auto Ratio (RBC) 12.8 % Normal 11.5-15.0 [facility] Comment on above: Order Comment: No: D o not add to previous draw Performed By: #### 0 0121, 89015, 34833 ####[facility] [facility] Hematocrit Auto Volume Fraction (Bld) 45.7 % Normal 39.0-50.0 [facility] Comment on above: Order Comment: No: D o not add to previous draw Performed By: #### 0 0121, 41319, 77853 ####[facility] [facility] Hemoglobin mass conc (Bld) 15.6 g/dL Normal 13.0-17.0 [facility] Comment on above: Order Comment: No: D o not add to previous draw Performed By: #### 0 0121, 39793, 36850 ####[facility] [address], [facility] MCH Auto Entitic mass (RBC) 30.4 pg Normal 27.0-33.0 [facility] Comment on above: Order Comment: No: D o not add to previous draw Performed By: #### 0 0121, 24912, 40186 ####[facility] MCHC Auto mass conc (RBC) 34.1 g/dL Normal 32.0-35.0 [facility] Comment on above: Order Comment: No: D o not add to previous draw Performed By: #### 0 0121, 69923, 60148 ####[facility] MCV Auto Entitic volume (RBC) 89.1 fL Normal 82.0-98.0 [facility] Comment on above: Order Comment: No: D o not add to previous draw Performed By: #### 0 0121, 34676, 12069 ####[facility] [facility] Nucleated RBC/100 WBC Ratio (Bld) 0 % Normal 0-0 [facility] Comment on above: Order Comment: No: D o not add to previous draw Performed By: #### 0 0121, 76689, 22066 ####[facility] [facility].[address] PLAT CNT 218 10*3/uL Normal 150-400 [facility] Comment on above: Order Comment: No: D o not add to previous draw Performed By: #### 0 0121, 29841, 44095 ####[facility] RBC Auto #/vol (Bld) 5.13 10*6/uL Normal 4.20-5.70 [facility] Comment on above: Order Comment: No: D o not add to previous draw Performed By: #### 0 0121, 20081, 74687 ####[facility] WBC Auto #/vol (Bld) 6.96 10*3/uL Normal 4.00-10.60 [facility] Comment on above: Order Comment: No: D o not add to previous draw Performed By: #### 0 0121, 58886, 71219 ####[facility] [place], [place] [address] [place] [address] Cardiovascular Lab Reporton 09-14-2018 Cardiovascular Lab Report [place] [facility]: [id number] Physician: Lizette Montano M.D.Medicine Service Date: 09/13/2018Division of Birthdate: 1960Cardiology Room #: 3CD [id number] CardiovascularServicesUniversi [facility] CityEtqvtaxBpcpsw[address] [place], [place] [address]Svzuz Fax Cardiovascular Laboratory ReportPROCEDURE: Transesophageal echocardiogram and cardioversion.INDICATION: Atrial fibrillation.FELLOW: Tanya Botello M.D.PROCEDURE IN DETAIL: An informed consent was obtained from the patientafter explaining indications, risks, and benefits, and alternatives. Thepatient understood and agreed and signed the consent form. The patient wasbrought to the animal laboratory technician and MOJGAN was performed under conscious sedation. Thepatient obtained a total of 10 mg of Versed and 100 mcg of fentanyl duringthe procedure. The transesophageal echocardiogram did not show anythrombus in the left atrial appendage. Full MOJGAN report is [facility]elsewfayette [facility]. After the transesophageal echocardiogram, synchronized biphasiccardioversion was done with 300 joules of energy. The patient successfullyconverted to sinus rhythm as evidenced by the EKG done postprocedure. Nocomplications throughout the procedure.Electronically Signed by:Lizette Haines M.D. 09/19/2018 08:34 P Lizette Haines M.D. I was present for the entire procedure. Date Dict: 09/13/2018/11:49 A/Al Brownlee Trans: 09/14/2018 06:55 A/Marguerite_JN:[id number]: Kacy Jacobson M.D. [id number] [facility] [place] [address] Yury Funez M.D. [address] [place] [address] Normal [facility] APTTon 09-13-2018 aPTT Coag time (Bld) 86.4 s Critically high 25.0-35.0 [facility] Comment on above: Order Comment: No: D [...] BE USED FOR THIS PURPOSE.RESULT CALLED TO ADIREL BALDWIN RN 1408CLINICAL SIGNIFICANCE OF THE PTT RESULT IS QUESTIONABLE IN THE PRESENCEOF HEPARIN. Performed By: #### 0 0121, 45023, 73406 ####[facility] [facility].[address] aPTT Coag time (Bld) 41.4 s High 25.0-35.0 [facility] Comment on above: Result Comment: ALL RESULTS [...] THIS PURPOSE. Performed By: #### 0 0121, 19331, 52703 ####[facility] [facility].[address] UFH HEPARIN ASSAYon 09-13-20 18 UNFRACTIONATED HEPARIN 0.64 IU/mL Normal 0.30-0.70 [facility] Comment on above: Result Comment: Lisa roxaban and Apixaban will interfere with the anti Xa assay used tomonitor UFH and LMWH. Performed By: #### 0 0121, 29831, 00677 ####[facility] [facility] UNFRACTIONATED HEPARIN 0.25 IU/mL Low 0.30-0.70 [facility] Comment on above: Result Comment: Bruno roxaban and Apixaban will interfere with the anti Xa assay used tomonitor UFH and LMWH. Performed By: #### 0 0121, 19906, 39760 ####[facility] [facility].[address] BASIC METABOLIC PANELon 10-2 Calcium mass conc 8.6 mg/dL Normal 8.6-10.3 [facility] Comment on above: Order Comment: No: D o not add to previous draw Performed By: #### 0 0121, 12292, 22984 ####[address] [place] [facility] [place] [address], [facility] Chloride molar conc 106 mmol/L Normal 98-107 [facility] Comment on above: Order Comment: No: D o not add to previous draw Performed By: #### 0 0121, 88162, 37540 ####[facility] [facility] [place] [address], [facility] CO2 molar conc 25 mmol/L Normal 21-31 [facility] Comment on above: Order Comment: No: D o not add to previous draw Performed By: #### 0 0121, 68353, 87087 ####[facility] [facility] [place] [address], [facility] Creatinine mass conc 0.64 mg/dL Low 0.70-1.30 [facility] Comment on above: Order Comment: No: D o not add to previous draw Performed By: #### 0 0121, 70099, 72922 ####[facility] [facility] [place] [address], [facility] GFR/1.73 sq M predicted among blacks MDRD vol rate/area (S/P/Bld) mL/min/{1.73_m2} Normal >60 [facility] Comment on above: Order Comment: No: D o not add to previous draw Performed By: #### 0 0121, 64312, 85689 ####[facility] [address], [facility] GFR/1.73 sq M predicted among non-blacks MDRD vol rate/area (S/P/Bld) mL/min/{1.73_m2} Normal >60 [facility] Comment on above: Order Comment: No: D o not add to previous draw Performed By: #### 0 0121, 93513, 53681 ####[facility] [address], [facility] Glucose mass conc 100 mg/dL Normal 70-100 [facility] Comment on above: Order Comment: No: D o not add to previous draw Performed By: #### 0 0121, 13599, 14071 ####[facility] [address], [facility] Potassium molar conc 4.0 mmol/L Normal 3.5-5.1 [facility] Comment on above: Order Comment: No: D o not add to previous draw Performed By: #### 0 0121, 03118, 60609 ####[facility] [address], [place] Sodium molar conc 137 mmol/L Normal 136-145 [facility] Comment on above: Order Comment: No: D o not add to previous draw Performed By: #### 0 0121, 75071, 98901 ####[facility] [address], [facility] Urea nitrogen mass conc 14 mg/dL Normal 7-25 [facility] Comment on above: Order Comment: No: D o not add to previous draw Performed By: #### 0 0121, 04464, 98995 ####[facility] CBC W/DIFFon 09-12-2018 ABS BASOPHILS 0.0 10*3/uL Normal 0.0-0.2 [facility] Comment on above: Order Comment: No: D o not add to previous draw Performed By: #### 0 0121, 87925, 90652 ####[facility] [place] [address] ABS IMM GRANS 0.0 10*3/uL Normal 0.0-0.2 [facility] Comment on above: Order Comment: No: D o not add to previous draw Performed By: #### 0 0121, 96628, 32617 ####[address] ABS NEUTROPHILS 3.1 10*3/uL Normal 1.6-7.6 [facility] Comment on above: Order Comment: No: D o not add to previous draw Performed By: #### 0 0121, 83260, 26837 ####[address] Basophils Auto #/vol (Bld) 0.7 % Normal 0.0-1.0 [facility] Comment on above: Order Comment: No: D o not add to previous draw Performed By: #### 0 0121, 71509, 10558 ####[address] Eosinophils Auto #/vol (Bld) 0.2 10*3/uL Normal 0.0-0.5 [facility] Comment on above: Order Comment: No: D o not add to previous draw Performed By: #### 0 0121, 71571, 59712 ####[place] [address], [facility] Eosinophils/100 WBC Auto (Bld) 3.6 % Normal 0.0-6.0 [facility] Comment on above: Order Comment: No: D o not add to previous draw Performed By: #### 0 0121, 95653, 44683 ####[facility] [facility].[address] Erythrocyte distribution width Auto Ratio (RBC) 12.7 % Normal 11.5-15.0 [facility] Comment on above: Order Comment: No: D o not add to previous draw Performed By: #### 0 0121, 14739, 32694 ####[facility] [facility].[address] Hematocrit Auto Volume Fraction (Bld) 45.5 % Normal 39.0-50.0 [facility] Comment on above: Order Comment: No: D o not add to previous draw Performed By: #### 0 0121, 32928, 93254 ####[facility] [facility].[address] Hemoglobin mass conc (Bld) 15.2 g/dL Normal 13.0-17.0 [facility] Comment on above: Order Comment: No: D o not add to previous draw Performed By: #### 0 0121, 87868, 41559 ####[facility]3000 [facility].[address] IMMATURE GRANS 0.4 % Normal 0.0-1.0 [facility] Comment on above: Order Comment: No: D o not add to previous draw Performed By: #### 0 0121, 93654, 84651 ####[facility]3000 [facility].[address] Lymphocytes Auto #/vol (Bld) 1.5 10*3/uL Normal 1.2-4.0 [facility] Comment on above: Order Comment: No: D o not add to previous draw Performed By: #### 0 0121, 60563, 90179 ####[facility] [place] [address], [facility] Lymphocytes/100 WBC Auto (Bld) 27.8 % Normal 20.0-45.0 [facility] Comment on above: Order Comment: No: D o not add to previous draw Performed By: #### 0 0121, 35258, 12180 ####[facility] MCH Auto Entitic mass (RBC) 30.0 pg Normal 27.0-33.0 [facility] Comment on above: Order Comment: No: D o not add to previous draw Performed By: #### 0 0121, , 86541 ####[facility] MCHC Auto mass conc (RBC) 33.4 g/dL Normal 32.0-35.0 [facility] Comment on above: Order Comment: No: D o not add to previous draw Performed By: #### 0 0121, , 88018 ####[facility] MCV Auto Entitic volume (RBC) 89.9 fL Normal 82.0-98.0 [facility] Comment on above: Order Comment: No: D o not add to previous draw Performed By: #### 0 0121, , 21094 ####[facility] Monocytes Auto #/vol (Bld) 0.6 10*3/uL Normal 0.1-1.0 [facility] Comment on above: Order Comment: No: D o not add to previous draw Performed By: #### 0 0121, 11449, 77938 ####[facility] MONOS 11.4 % Normal 5.0-12.0 [facility] Comment on above: Order Comment: No: D o not add to previous draw Performed By: #### 0 0121, , 51324 ####[facility] [address], [facility] Neutrophils/100 WBC Auto (Bld) 56.1 % Normal 40.0-72.0 [facility] Comment on above: Order Comment: No: D o not add to previous draw Performed By: #### 0 0121, 88676, 47961 ####[facility].[address] Nucleated RBC/100 WBC Ratio (Bld) 0 % Normal 0-0 [facility] Comment on above: Order Comment: No: D o not add to previous draw Performed By: #### 0 0121, 06201, 96314 ####[facility] [facility] [place] [address], [facility] PLAT CNT 188 10*3/uL Normal 150-400 [facility] Comment on above: Order Comment: No: D o not add to previous draw Performed By: #### 0 0121, 49374, 76162 ####[facility]3000 [facility].[address] RBC Auto #/vol (Bld) 5.06 10*6/uL Normal 4.20-5.70 [facility] Comment on above: Order Comment: No: D o not add to previous draw Performed By: #### 0 0121, 61211, 86125 ####[facility] [place] [address], [facility] WBC Auto #/vol (Bld) 5.54 10*3/uL Normal 4.00-10.60 [facility] Comment on above: Order Comment: No: D o not add to previous draw Performed By: #### 0 0121, 41848, 40878 ####[facility] [address], [facility] MAGNESIUM BLOODon 09-12-2018 Magnesium mass conc 1.9 mg/dL Normal 1.9-2.7 [facility] Comment on above: Order Comment: No: D o not add to previous draw Performed By: #### 0 0121, 28505, 80824 ####[facility].[address] UFH HEPARIN ASSAYon 09-12-20 UNFRACTIONATED HEPARIN 0.26 IU/mL Low 0.30-0.70 [facility] Comment on above: Result Comment: Bruno roxaban and Apixaban will interfere with the anti Xa assay used tomonitor UFH and LMWH. Performed By: #### 0 0121, 51098, 31949 ####[facility].[address] UNFRACTIONATED HEPARIN 0.72 IU/mL High 0.30-0.70 [facility] Comment on above: Result Comment: Bruno roxaban and Apixaban will interfere with the anti Xa assay used tomonitor UFH and LMWH. Performed By: #### 0 0121, 90572, 62861 ####[facility]3000 [facility].[address] UNFRACTIONATED HEPARIN 0.49 IU/mL Normal 0.30-0.70 [facility] Comment on above: Result Comment: Lisa roxaban and Apixaban will interfere with the anti Xa assay used tomonitor UFH and LMWH. Performed By: #### 0 0121, 14087, 81007 ####[facility]3000 [facility].[address] APTTon 09-11-2018 aPTT Coag time (Bld) 101.0 s Critically high 25.0-35.0 [facility] Comment on above: Order Comment: No: D [...] RNAT 615 Performed By: #### 0 0121, 47845, 37203 ####[facility] [address], [facility] BASIC METABOLIC PANELon 10-2 Calcium mass conc 8.9 mg/dL Normal 8.6-10.3 [facility] Comment on above: Order Comment: No: D o not add to previous draw Performed By: #### 0 0121, 95191, 84179 ####[facility] [address], [facility] Chloride molar conc 106 mmol/L Normal 98-107 [facility] Comment on above: Order Comment: No: D o not add to previous draw Performed By: #### 0 0121, 28091, 30771 ####[facility] [address], [facility] CO2 molar conc 25 mmol/L Normal 21-31 [facility] Comment on above: Order Comment: No: D o not add to previous draw Performed By: #### 0 0121, 16793, 63775 ####[facility] [address], [facility] Creatinine mass conc 0.84 mg/dL Normal 0.70-1.30 [facility] Comment on above: Order Comment: No: D o not add to previous draw Performed By: #### 0 0121, 62210, 76540 ####[facility] [address], [facility] GFR/1.73 sq M predicted among blacks MDRD vol rate/area (S/P/Bld) mL/min/{1.73_m2} Normal >60 [facility] Comment on above: Order Comment: No: D o not add to previous draw Performed By: #### 0 0121, 51222, 36332 ####[facility] GFR/1.73 sq M predicted among non-blacks MDRD vol rate/area (S/P/Bld) mL/min/{1.73_m2} Normal >60 [facility] Comment on above: Order Comment: No: D o not add to previous draw Performed By: #### 0 0121, 58726, 77144 ####[facility].[address] Glucose mass conc 103 mg/dL High 70-100 [facility] Comment on above: Order Comment: No: D o not add to previous draw Performed By: #### 0 0121, 75010, 09781 ####[facility].[address] Potassium molar conc 4.0 mmol/L Normal 3.5-5.1 [facility] Comment on above: Order Comment: No: D o not add to previous draw Performed By: #### 0 0121, 02336, 80982 ####[facility] [facility].[address] Sodium molar conc 138 mmol/L Normal 136-145 [facility] Comment on above: Order Comment: No: D o not add to previous draw Performed By: #### 0 0121, 63796, 63316 ####[facility] [facility].[address] Urea nitrogen mass conc 20 mg/dL Normal 7-25 [facility] Comment on above: Order Comment: No: D o not add to previous draw Performed By: #### 0 0121, 65794, 38660 ####[facility] [facility] [place] [address], [facility] CBC W/DIFFon 09-11-2018 ABS BASOPHILS 0.0 10*3/uL Normal 0.0-0.2 [facility] Comment on above: Order Comment: No: D o not add to previous draw Performed By: #### 5 0103 ####[facility] [facility].[address] ABS IMM GRANS 0.0 10*3/uL Normal 0.0-0.2 [facility] Comment on above: Order Comment: No: D o not add to previous draw Performed By: #### 5 0103 ####[facility].[address] ABS NEUTROPHILS 3.1 10*3/uL Normal 1.6-7.6 [facility] Comment on above: Order Comment: No: D o not add to previous draw Performed By: #### 5 0103 ####[facility] Basophils Auto #/vol (Bld) 0.8 % Normal 0.0-1.0 [facility] Comment on above: Order Comment: No: D o not add to previous draw Performed By: #### 5 0103 ####[facility] Eosinophils Auto #/vol (Bld) 0.2 10*3/uL Normal 0.0-0.5 [facility] Comment on above: Order Comment: No: D o not add to previous draw Performed By: #### 5 0103 ####[facility] Eosinophils/100 WBC Auto (Bld) 3.5 % Normal 0.0-6.0 [facility] Comment on above: Order Comment: No: D o not add to previous draw Performed By: #### 5 0103 ####[facility] Erythrocyte distribution width Auto Ratio (RBC) 12.8 % Normal 11.5-15.0 [facility] Comment on above: Order Comment: No: D o not add to previous draw Performed By: #### 5 0103 ####[facility].[address] Hematocrit Auto Volume Fraction (Bld) 45.3 % Normal 39.0-50.0 [facility] Comment on above: Order Comment: No: D o not add to previous draw Performed By: #### 5 0103 ####[facility].[address] Hemoglobin mass conc (Bld) 15.3 g/dL Normal 13.0-17.0 [facility] Comment on above: Order Comment: No: D o not add to previous draw Performed By: #### 5 0103 ####[facility].[address] IMMATURE GRANS 0.4 % Normal 0.0-1.0 [facility] Comment on above: Order Comment: No: D o not add to previous draw Performed By: #### 5 0103 ####[facility] [facility].[address] Lymphocytes Auto #/vol (Bld) 1.4 10*3/uL Normal 1.2-4.0 [facility] Comment on above: Order Comment: No: D o not add to previous draw Performed By: #### 5 0103 ####[facility].[address] Lymphocytes/100 WBC Auto (Bld) 25.9 % Normal 20.0-45.0 [facility] Comment on above: Order Comment: No: D o not add to previous draw Performed By: #### 5 0103 ####[facility] [place] [address], [facility] MCH Auto Entitic mass (RBC) 30.5 pg Normal 27.0-33.0 [facility] Comment on above: Order Comment: No: D o not add to previous draw Performed By: #### 5 0103 ####[facility]3000 [facility].[address] MCHC Auto mass conc (RBC) 33.8 g/dL Normal 32.0-35.0 [facility] Comment on above: Order Comment: No: D o not add to previous draw Performed By: #### 5 0103 ####[facility]3000 [facility].[address] MCV Auto Entitic volume (RBC) 90.2 fL Normal 82.0-98.0 [facility] Comment on above: Order Comment: No: D o not add to previous draw Performed By: #### 5 3 ####[facility] Monocytes Auto #/vol (Bld) 0.5 10*3/uL Normal 0.1-1.0 [facility] Comment on above: Order Comment: No: D o not add to previous draw Performed By: #### 5 3 ####[facility] MONOS 10.2 % Normal 5.0-12.0 [facility] Comment on above: Order Comment: No: D o not add to previous draw Performed By: #### 3 ####[facility]3000 [facility].[address] Neutrophils/100 WBC Auto (Bld) 59.2 % Normal 40.0-72.0 [facility] Comment on above: Order Comment: No: D o not add to previous draw Performed By: #### 5 3 ####[facility] Nucleated RBC/100 WBC Ratio (Bld) 0 % Normal 0-0 [facility] Comment on above: Order Comment: No: D o not add to previous draw Performed By: #### 5 3 ####[facility] [address], [facility] PLAT CNT 226 10*3/uL Normal 150-400 [facility] Comment on above: Order Comment: No: D o not add to previous draw Performed By: #### 5 0103 ####[facility] [facility] [place] [address], [facility] RBC Auto #/vol (Bld) 5.02 10*6/uL Normal 4.20-5.70 [facility] Comment on above: Order Comment: No: D o not add to previous draw Performed By: #### 5 0103 ####[facility] [facility] [place] [address], [facility] WBC Auto #/vol (Bld) 5.21 10*3/uL Normal 4.00-10.60 [facility] Comment on above: Order Comment: No: D o not add to previous draw Performed By: #### 5 0103 ####[facility]3000 [facility].[address] MAGNESIUM BLOODon 09-11-2018 Magnesium mass conc 1.8 mg/dL Low 1.9-2.7 [facility] Comment on above: Order Comment: No: D o not add to previous draw Performed By: #### 0 0121, 30340, 54153 ####[facility] [place] [address], [facility] PHOSPHORUS BLOODon 8 Phosphate mass conc 3.0 mg/dL Normal 2.5-5.0 [facility] Comment on above: Order Comment: No: D o not add to previous draw Performed By: #### 0 0121, 53135, 95538 ####[facility] [address], [facility] PROTHROMBIN TIMEon 8 INR Coag RelTime (PPP) 1.01 {INR} Normal 0.91-1.16 [facility] Comment on above: Order Comment: No: D [...] OF ACTION, CLINICALEFFECTIVENESS, AND OPTIMAL THERAPEUTIC RANGE. [id number]. Performed By: #### 0 0121, 38003, 12498 ####[facility]3000 [facility].[address] Prothrombin time (PT) Coag time (PPP) 13.3 s Normal 12.3-14.8 [facility] Comment on above: Order Comment: No: D o not add to previous draw Result Comment: ALL RESULTS MUST BE INTERPRETED WITH RESPECT TO BLOOD DRAWING ARTIFACTOR DILUTION ERROR OF ANTICOAGULANT AT THE TIME OF SAMPLING. Performed By: #### 0 0121, 86435, 90169 ####[facility]3000 [facility].[address] TROPONIN-Ion 09-11-2018 Troponin I.cardiac mass conc 0.00 ng/mL Normal 0.00-0.04 [facility] Comment on above: Order Comment: No: D o not add to previous draw Result Comment: REFE RENCE RANGES: 0.00 - 0.14 ng/ml NEGATIVE 0.15 - 0.25 ng/ml INDETERMINATE > 0.25 ng/ml INDICATIVE OF AN M.I. Performed By: #### 3 5200 ####[facility].[address] UFH HEPARIN ASSAYon 09-11-20 18 UNFRACTIONATED HEPARIN 0.40 IU/mL Normal 0.30-0.70 [facility] Comment on above: Result Comment: Bruno roxaban and Apixaban will interfere with the anti Xa assay used tomonitor UFH and LMWH. Performed By: #### 0 0121, 06573, 60023 ####[facility].[address] UNFRACTIONATED HEPARIN 0.39 IU/mL Normal 0.30-0.70 [facility] Comment on above: Result Comment: Bruno roxaban and Apixaban will interfere with the anti Xa assay used tomonitor UFH and LMWH. Performed By: #### 0 0121, 06333, 74724 ####[facility]3000 [facility].[address] UNFRACTIONATED HEPARIN 0.70 IU/mL Normal 0.30-0.70 [facility] Comment on above: Result Comment: Bruno roxaban and Apixaban will interfere with the anti Xa assay used tomonitor UFH and LMWH. Performed By: #### 0 0121, 93537, 46954 ####[facility]3000 [facility].[address] UNFRACTIONATED HEPARIN 0.49 IU/mL Normal 0.30-0.70 [facility] Comment on above: Result Comment: Lisa roxaban and Apixaban will interfere with the anti Xa assay used tomonitor UFH and LMWH. Performed By: #### 3 0477 ####[facility] APTTon 09-10-2018 aPTT Coag time (Bld) 26.2 s Normal 25.0-35.0 [facility] Comment on above: Result Comment: ALL RESULTS [...] THIS PURPOSE. Performed By: #### 5 6101, 90915 ####[facility] CBC W/DIFFon 09-10-2018 ABS BASOPHILS 0.0 10*3/uL Normal 0.0-0.2 [facility] Comment on above: Order Comment: No: D o not add to previous draw Performed By: #### 5 0103 ####[address] ABS IMM GRANS 0.0 10*3/uL Normal 0.0-0.2 [facility] Comment on above: Order Comment: No: D o not add to previous draw Performed By: #### 5 0103 ####[facility] ABS NEUTROPHILS 6.0 10*3/uL Normal 1.6-7.6 [facility] Comment on above: Order Comment: No: D o not add to previous draw Performed By: #### 5 0103 ####[place] [id number] [address] Basophils Auto #/vol (Bld) 0.4 % Normal 0.0-1.0 [facility] Comment on above: Order Comment: No: D o not add to previous draw Performed By: #### 5 0103 ####[address] Eosinophils Auto #/vol (Bld) 0.1 10*3/uL Normal 0.0-0.5 [facility] Comment on above: Order Comment: No: D o not add to previous draw Performed By: #### 5 0103 ####[facility]3000 [facility].[address] Eosinophils/100 WBC Auto (Bld) 1.1 % Normal 0.0-6.0 [facility] Comment on above: Order Comment: No: D o not add to previous draw Performed By: #### 5 0103 ####[facility]3000 [facility].[address] Erythrocyte distribution width Auto Ratio (RBC) 12.5 % Normal 11.5-15.0 [facility] Comment on above: Order Comment: No: D o not add to previous draw Performed By: #### 5 0103 ####[facility]3000 [facility].[address] Hematocrit Auto Volume Fraction (Bld) 48.8 % Normal 39.0-50.0 [facility] Comment on above: Order Comment: No: D o not add to previous draw Performed By: #### 5 0103 ####[facility]3000 [facility].[address] Hemoglobin mass conc (Bld) 16.6 g/dL Normal 13.0-17.0 [facility] Comment on above: Order Comment: No: D o not add to previous draw Performed By: #### 5 3 ####[facility]3000 [facility].[address] IMMATURE GRANS 0.3 % Normal 0.0-1.0 [facility] Comment on above: Order Comment: No: D o not add to previous draw Performed By: #### 5 0103 ####[facility]3000 [facility].[address] Lymphocytes Auto #/vol (Bld) 1.2 10*3/uL Normal 1.2-4.0 [facility] Comment on above: Order Comment: No: D o not add to previous draw Performed By: #### 5 0103 ####[facility] Lymphocytes/100 WBC Auto (Bld) 14.7 % Low 20.0-45.0 [facility] Comment on above: Order Comment: No: D o not add to previous draw Performed By: #### 5 3 ####[facility] MCH Auto Entitic mass (RBC) 30.3 pg Normal 27.0-33.0 [facility] Comment on above: Order Comment: No: D o not add to previous draw Performed By: #### 5 3 ####[facility] MCHC Auto mass conc (RBC) 34.0 g/dL Normal 32.0-35.0 [facility] Comment on above: Order Comment: No: D o not add to previous draw Performed By: #### 5 3 ####[facility] MCV Auto Entitic volume (RBC) 89.2 fL Normal 82.0-98.0 [facility] Comment on above: Order Comment: No: D o not add to previous draw Performed By: #### 102 ####[facility] Monocytes Auto #/vol (Bld) 0.6 10*3/uL Normal 0.1-1.0 [facility] Comment on above: Order Comment: No: D o not add to previous draw Performed By: #### 5 3 ####[facility] MONOS 7.9 % Normal 5.0-12.0 [facility] Comment on above: Order Comment: No: D o not add to previous draw Performed By: #### 3 ####[facility] [address], [facility] Neutrophils/100 WBC Auto (Bld) 75.6 % High 40.0-72.0 [facility] Comment on above: Order Comment: No: D o not add to previous draw Performed By: #### 5 0103 ####[facility]3000 [facility].[address] Nucleated RBC/100 WBC Ratio (Bld) 0 % Normal 0-0 [facility] Comment on above: Order Comment: No: D o not add to previous draw Performed By: #### 5 0103 ####[facility] [facility] [place] [address], [facility] PLAT CNT 243 10*3/uL Normal 150-400 [facility] Comment on above: Order Comment: No: D o not add to previous draw Performed By: #### 5 0103 ####[facility]3000 [facility].[address] RBC Auto #/vol (Bld) 5.47 10*6/uL Normal 4.20-5.70 [facility] Comment on above: Order Comment: No: D o not add to previous draw Performed By: #### 5 3 ####[facility] [place] [address], [facility] WBC Auto #/vol (Bld) 7.87 10*3/uL Normal 4.00-10.60 [facility] Comment on above: Order Comment: No: D o not add to previous draw Performed By: #### 5 3 ####[facility] [place] [address], [facility] COMP METABOLIC PANELon 09-10 Albumin mass conc 4.0 g/dL Normal 3.5-5.7 [facility] Comment on above: Order Comment: No: D o not add to previous draw Performed By: #### 0 0121, 60011, 67042 ####[facility] [address], [facility] ALKALINE PHOSPH 59 IU/L Normal 34-104 [facility] Comment on above: Order Comment: No: D o not add to previous draw Performed By: #### 0 0121, 57714, 45265 ####[facility] [address], [facility] ALT enzyme act/vol 22 U/L Normal 7-52 [facility] Comment on above: Order Comment: No: D o not add to previous draw Performed By: #### 0 0121, 90614, 38116 ####[facility] [address], [facility] AST enzyme act/vol 20 U/L Normal 13-39 [facility] Comment on above: Order Comment: No: D o not add to previous draw Performed By: #### 0 0121, 40558, 12005 ####[facility] [address], [facility] Bilirubin mass conc 0.8 mg/dL Normal 0.3-1.0 [facility] Comment on above: Order Comment: No: D o not add to previous draw Performed By: #### 0 0121, 79314, 86923 ####[facility] [address], [facility] Calcium mass conc 8.8 mg/dL Normal 8.6-10.3 [facility] Comment on above: Order Comment: No: D o not add to previous draw Performed By: #### 0 0121, 01435, 26548 ####[facility] [address], [facility] Chloride molar conc 103 mmol/L Normal 98-107 [facility] Comment on above: Order Comment: No: D o not add to previous draw Performed By: #### 0 0121, 42911, 33111 ####[facility] [address], [place] CO2 molar conc 28 mmol/L Normal 21-31 [facility] Comment on above: Order Comment: No: D o not add to previous draw Performed By: #### 0 0121, 60322, 34560 ####[facility] [address], [place] Creatinine mass conc 0.93 mg/dL Normal 0.70-1.30 [facility] Comment on above: Order Comment: No: D o not add to previous draw Performed By: #### 0 0121, 92199, 72188 ####[facility] [place] [address], [facility] GFR/1.73 sq M predicted among blacks MDRD vol rate/area (S/P/Bld) mL/min/{1.73_m2} Normal >60 [facility] Comment on above: Order Comment: No: D o not add to previous draw Performed By: #### 0 0121, 11556, 94108 ####[facility] [place] [address], [place] GFR/1.73 sq M predicted among non-blacks MDRD vol rate/area (S/P/Bld) mL/min/{1.73_m2} Normal >60 [facility] Comment on above: Order Comment: No: D o not add to previous draw Performed By: #### 0 0121, 76102, 26943 ####[facility] [address], [place] Glucose mass conc 94 mg/dL Normal 70-100 [facility] Comment on above: Order Comment: No: D o not add to previous draw Performed By: #### 0 0121, 81500, 24313 ####[facility] [facility] [address], [place] Potassium molar conc 4.0 mmol/L Normal 3.5-5.1 [facility] Comment on above: Order Comment: No: D o not add to previous draw Performed By: #### 0 0121, [id number], [id number] ####[facility] Protein mass conc 6.8 g/dL Normal 6.0-8.3 [facility] Comment on above: Order Comment: No: D o not add to previous draw Performed By: #### 0 0121, [id number], 04005 ####[facility] Sodium molar conc 140 mmol/L Normal 136-145 [facility] Comment on above: Order Comment: No: D o not add to previous draw Performed By: #### 0 0121, 63639, [id number] ####[facility] Urea nitrogen mass conc 19 mg/dL Normal 7-25 [facility] Comment on above: Order Comment: No: D o not add to previous draw Performed By: #### 0 0121, 04997, [id number] ####[facility] PROTHROMBIN TIMEon 8 INR Coag RelTime (PPP) 0.93 {INR} Normal 0.91-1.16 [facility] Comment on above: Result Comment: ACCC P RECOMMENDED INR FOR WARFARIN THERAPY CONDITION INRPROPHYLAXIS OF VENOUS THROMBOSIS 2-3(HIGH-RISK SURGERY)TREATMENT OF VENOUS THROMBOSIS 2-3TREATMENT OF PULMONARY EMBOLISM 2-3PREVENTION OF SYSTEMIC EMBOLISM: 2-3 ACUTE MYOCARDIAL INFARCTION TISSUE HEART VALVES VALVULAR HEART DISEASE ATRIAL FIBRILLATION RECURRENT SYSTEMIC EMBOLISMMECHANICAL HEART VALVE 2.5-3.5 FROM: ORAL ANTICOAGULANTS. MECHANISM OF ACTION, CLINICALEFFECTIVENESS, AND OPTIMAL THERAPEUTIC RANGE. [id number]. Performed By: #### 5 6101, 10162 ####[facility].[address] Prothrombin time (PT) Coag time (PPP) 12.5 s Normal 12.3-14.8 [facility] Comment on above: Result Comment: ALL RESULTS MUST BE INTERPRETED WITH RESPECT TO BLOOD DRAWING ARTIFACTOR DILUTION ERROR OF ANTICOAGULANT AT THE TIME OF SAMPLING. Performed By: #### 5 6101, [id number] ####[facility] [place] [address], [facility] TROPONIN-Ion 09-10-2018 Troponin I.cardiac mass conc 0.00 ng/mL Normal 0.00-0.04 [facility] Comment on above: Order Comment: No: D o not add to previous draw Result Comment: REFE RENCE RANGES: 0.00 - 0.14 ng/ml NEGATIVE 0.15 - 0.25 ng/ml INDETERMINATE > 0.25 ng/ml INDICATIVE OF AN M.I. Performed By: #### 3 5200 ####[facility].[address] Troponin I.cardiac mass conc 0.00 ng/mL Normal 0.00-0.04 [facility] Comment on above: Result Comment: REFE RENCE RANGES: 0.00 - 0.14 ng/ml NEGATIVE 0.15 - 0.25 ng/ml INDETERMINATE > 0.25 ng/ml INDICATIVE OF AN M.I. Performed By: #### 0 0121, 27037, [id number] ####[facility] [place] [address], [facility] TSH3on 09-10-2018 TSH 3RD GENERATION 1.05 uIU/mL Normal 0.34-5.60 [facility] Comment on above: Performed By: #### 0 0121, 63286, 72744 ####[facility] Vital Signs Date Time Vital Sign Value Performing Clinician Faci lity 10-01-2023 08:20-0500 Body height 193.04 cm Sher Whitfield Other [facility] [place] Other 10-01-2023 08:20-0500 Body mass index (BMI) [Ratio] 27.75 kg/m2 Sher Whitfield Other [facility] Other 10-01-2023 08:20-0500 Body weight 103.42 kg Sher Whitfield Other [employer] Other 1960 23:00-0500 >na< Ellie Rodríguez Dept. of Dermato logy Encounters Encounter Date Encounter Type Care Provider Facility Start: 05-09-2024 End: 05-09-2024 ambulatory Andrius Efrainytautsonia Villatoroitis Facility: [facility] Start: 05-02-2024 End: 05-02-2024 ambulatory Gold Villatoroitis Facility: [facility] Start: 11-10-2023 End: 11-10-2023 ambulatory RANDY CARRANZA [facility] Start: 10-01-2023 Office outpatient ne w 30 minutes Sher Whitfield [facility] Start: 10-01-2023 End: 10-01-2023 ambulatory Sher Whitfield Facility:[facility] Start: 10-01-2023 End: 10-01-2023 ambulatory MD Kacy Jacobson Work Phone: [facility] Work Phone: Start: 10-01-2023 End: 10-01-2023 Patient encounter procedure MD Kacy Jacobson Work Phone: [facility] Work Phone: Start: 04-01-2023 End: 04-01-2023 ambulatory KATHE [facility] Start: 03-24-2023 Luke Reinoso Dept. of [...] without abnormal findings DR KACY JACOBSON . [facility] Start: 01-22-2023 End: 01-23-[address] KACY JACOBSON . Facility:[facility] Start: 01-22-2023 End: 01-23-2023 Encounter for general adult medical examination without abnormal findings DR KACY JACOBSON . Facility:[facility] Start: 12-09-2022 End: 12-10-2022 ambulatory RENU ZARCO Facility:[facility] Start: 10-27-2022 End: 10-28-2022 ambulatory RENU ZARCO Facility:[facility] Start: 10-08-2022 End: 10-09-2022 ambulatory RENU HAROLDO Facility:[facility] Start: 09-24-2022 End: 09-25-2022 ambulatory RENU HAROLDO Facility:[facility] Start: 09-10-2022 End: 09-11-2022 ambulatory RENU HAROLDO Facility:[facility] Start: 09-13-2018 End: 09-14-2018 Patient encounter procedure DEFAULT PHYSICIAN Facility:[facility] Start: 09-10-2018 End: 09-14-2018 Evaluation and management of inpatient AVE LUEVANO Facility:[facility] Start: 08-25-2018 End: 08-26-2018 Patient encounter procedure DEFAULT PHYSICIAN Facility:[facility] Procedures Date Procedure Procedure [...] T 7, URIC, TSH, CMP, LIPID #### [facility] [address] [place] [address] Dr. Ayush Sorto Start: 09-13-2018 [facility] ac Rhythm, Single LIZETTE V MOUKARBEL Immunizations Immunization Date Immunization Notes Care Provider Taylor madrid 1960 pneumococcal conjuga te vaccine, 7 valent Ellie Rodríguez Dept. of Dermatology Payers Date Payer Category Payer Medicare 2023 Self-pay 2006 Private Health Insurance [id number] 1960 Unknown [id number] 1960 Unknown [id number] 2.16.8 40.1.836485.3.579.2.647 1960 Unknown [id number] 2.16.8 40.1.490983.3.579.2.647 1959 Unknown [id number] 2.16.8 40.1.504721.3.579.2.647 1959 Unknown [id number] 2.16.84 0.1.498657.3.579.2.593 1959 Unknown [id number] 2.16.84 0.1.995020.3.579.2.593 1959 Unknown [id number] 2.16.84 0.1.847832.3.579.2.593 1959 Unknown [id number] 2.16.84 0.1.342662.3.579.2.593 1959 Unknown [id number] 2.16.84 0.1.938706.3.579.2.593 1959 Unknown [id number] 2.16.84 0.1.651889.3.579.2.593 1959 Unknown [id number] 2.16.84 0.1.431653.3.579.2.593 1959 Unknown [id number] 2.16. 840.1.422068.3.579.2.356 1959 Unknown [id number] 2.16. 840.1.679302.3.579.2.356 1959 Unknown [id number] 2.16. 840.1.356935.3.579.2.356 1959 Unknown [id number] 2.16. 840.1.027176.3.579.2.196 1959 Unknown [id number] 2.16. 840.1.018484.3.579.2.196 Unknown Unknown [id number] 2.16.8 40.1.369534.3.579.2.531 Social History Date Type Detail Facility Start: 03-02-2023 Dept. of D ermatology Start: 1960 End: 1960 Sex Assigned At Male [facility] Sex Assigned At Sex Assigned At [facility] [employer] Other Goals Date Patient Goal Desired Activity [...] history was recently cardioverted by me at [facility] to SR . He states no significantly [...] rhonchi Cardiovascular Rat (more content not included)... [facility] 11-10-2023 Note Patient here for 6 m o follow up chronic afib. No recent labs or imaging. Denies chest pain, SOB, palpitations, lightheadedness/syncope, and bleeding on Xarelto. BP at home when checked averages around 120/80. Review of Systems Musculoskeletal: Positive for myalgias. All other systems reviewed and are negative. [facility] 10-01-2023 Evaluation note Encounter Date Diagnosis Assessment [...] Pain in left leg (ICD-10 - M79.605) [employer] Other 05-17-2023 Note-advised to [facility]ian [facility]-BP controlled -ct medications: lisinopril 10mg every day, toprol tartrate 75mg bid, xarelto 20mg, aldactone 25mg qdUnSamaritan [facility] Health Center05-17-2023 Note [id number] 1 for htn, will ct xarelto -DCCV x3 with amio, still has afib controlled rate and known hx of slow VR int0 40bpm -surgical ablation was mentioned as an option for ablation vs PPM with AVN ablation, patient does not want to consider at this time -will have him follow up [place] [address] [facility]23 NotePatient here for 6 mo follow up [...] myalgias. All other systems reviewed and are negative.[facility] 04-01-2023 NoteUT Electrophysiology Consult Note Reason for [...] history was recently cardioverted by me at [facility] to . He states no significantly better to [...] Hematologic/Lymphatic Hematologic/Lymphatic no swoll (more content not included)...[facility]ADept. [facility] Dermatology Evaluation noteNo assessment information available [facility] Work Phone: History general Narrative - Reported* Type Description Date Medical History heart disease Medical History melanoma Surgical History melanoma excision Hospitalization History see above [employer] Other reason for referral (narrative)* Name Reason for referral JULIETH CLANCY Dept. of Dermatology Summary Purpose Family History No Family History Records FoundNo Family History Records FoundNo Family History Records FoundNo Family History Records FoundNo Family History Records FoundNo Family History Records Found Advance Directives No Advanced Directives Records Found Advance Directive Response Recorded Date/ Time Advance Directives No October 01, 2023 7:32am Hospital Course Note [id number] Admitted: 09/10/2018 Discharged: 09/14/2018 Date of : 1960 Physician: Primo Glaser MD DISCHARGE SUMMARYDISCHARGE ATTENDING PHYSICIAN: Primo Glaser [facility] CARE PHYSICIAN: Dr. Jacobson at [phone].PRINCIPAL DIAGNOSIS: Atrial fibrillation/flutter, status post TEEconversion currently in sinus rate.CONSULTATION: Cardiology consulted during hospice.PROCEDURE: The patient had MOJGAN conversion completed on Thursday, August.PHYSICAL EXAMINATION: Today:GENERAL: Alert, awake, oriented x3.HEENT: PERRLA.NECK: [...] and content) DATE CREATED AUTHOR 10/23/2018 [facility] DATE CREATED AUTHOR AUTHOR'S ORGANIZ ATION 02/27/2023 [facility] DATE CREATED AUTHOR AUTHOR'S ORGANIZ ATION 03/25/2023 [facility] DATE CREATED AUTHOR AUTHOR'S ORGANIZ ATION 10/09/2023 [facility] DATE CREATED AUTHOR AUTHOR'S ORGANIZ ATION 11/18/2023 [facility] DATE CREATED AUTHOR AUTHOR'S ORGANIZ ATION 05/15/2024 [facility] Care Teams (unrecognized sec tion and [...] BE BASED ON THE PRIMARY CLINICAL RECORDS. [employer] provides no warranty or guarantee of the accuracy or completeness of information in this document.
[2024-05-23 10:48] VITALS: BP 155/91; PULSE 58; O2SAT 93
[2024-05-23 10:49] VITALS: BP 136/85; PULSE 55; O2SAT 97
[2024-05-23] MEDS: 0.9 % SODIUM CHLORIDE 10 ML SYRINGE - SALINE FLUSH INJ (10:50)
[2024-05-23] MEDS: BUPIVACAINE HCL 0.25% PF 25 MG/10 ML VIAL INJ (10:50)
[2024-05-23] MEDS: DEXAMETHASONE SOD PHOS 10 MG/ML VIAL INJ (10:51)
[2024-05-23] MEDS: LIDOCAINE HCL 2% 400 MG/20 ML MDV 3 ML INJ (10:51)
[2024-05-23] MEDS: IOHEXOL 240 MG/ML - 10 ML VIAL INJ (10:51)
--- NOTE | 2024-05-23 10:53 | W.PM.PROCNOT ---
Date of procedure: 05/23/24 Pre-op diagnosis: Pain due to lumbar stenosis with neurogenic claudication Post-op diagnosis: same as pre-op Procedure: Procedure: Bilateral L3-4 transforaminal epidural steroid injection Medications: Bupivacaine 0.25% 2cc, lidocaine 2% 1cc, dexamethasone 10mg The patient was seen and examined in the preoperative holding area.? Informed consent was obtained and placed on the chart.? Patient was brought to the medical procedure unit and placed in the prone position where a timeout was completed verifying the correct patient, procedure site, position, and planned special equipment using sterile aseptic technique.? Under direct fluoroscopic visualization a 25-gauge Quincke tipped spinal needle was advanced at level left L3-4 to the designated neural foramen where contrast dye was injected to show adequate spread.? There was no evidence of vascular or adverse uptake.? Epidural spread was appreciated.? The above-mentioned injectate was then placed in a 1.5 mL aliquot preceded by negative aspiration.? The needle was removed. The same procedure, at the same level, was completed on the opposite side. ? Patient was taken to the postprocedural recovery area and monitored for an appropriate length of time before found suitable for discharge in the accompaniment of a responsible adult. Anesthesia: Local Surgeon: Gold Choi Pathology: none sent Condition: stable Disposition: no change
== END 2024-05-23 10:55 | disposition home or self-care (01) ==
LOC: SURGOUT 09:55
PROVIDERS: PCP Family Medicine; Visit Provider Anesthesiology
DX: M48.062 Spinal stenosis, lumbar region with neurogenic claudication (principal)
CPT/HCPCS: 64483; J0665; J1100; Q9966

== ENCOUNTER 2024-06-02 07:55 | Outpatient (OUT) | payer OTHER, SELFPAY ==
--- NOTE | 2024-06-02 08:26 | P.CN_ITS ---
Consult Note: HPI Data of Consult Patient: known to practice within the last 3 years Consult date: 05/02/24 Requesting Physician: Shannan Gautam NP Primary Care Provider: Ross Jacobson MD Consult Narrative Reason for consult: low back, bilateral lower extremity pain Narrative: 64yom who presents for evaluation. longstanding low back, bilateral lower extremity pain. worsened in past several months. used to walk long distances, now has significant trouble with ambulation. lumbar mri reviewed, significant for severe stenosis at l2-3, l3-4, l4-5. significant facet arthropathy at multiple lumbar levels. engaged in chiropractic therapy >6 weeks, without relief. uses advil. denies adverse med side effects. on xarelto, should avoid all NSAIDs. Recent bilateral L3/4 TFESI and bilateral L4/5 TFESI provided 90% improvement in pain and functional ability overall, pain 1-2/- WESLEY 2%. Noticing significant improvement in ability to stand and walk. cc:: CC: Shannan Gautam NP Review of Systems ROS Status of ROS 10 or more systems reviewed and unremark able except as noted in history and below Musculoskeletal Reports: back pain PFSH PFS Medical History (Updated 05/09/24 @ 10:40 by Mouna Del Rio) Melanoma ?C43.9 - Malignant melanoma of skin, unspecified (ICD-10) Low back pain ?M54.50 - Low back pain, unspecified (ICD-10) Sleep apnea ?G47.30 - Sleep apnea, unspecified (ICD-10) Afib ?I48.91 - Unspecified atrial fibrillation (ICD-10) Surgical History H/O knee surgery ?Z98.890 - Other specified postprocedural states (ICD-10) Meds Home Medications and Allergies Home Medications ?Medication ?Instructions ?Recorded ?Confirmed ?Type lisinopril 10 mg tablet mg 05/02/24 History metoprolol tartrate 75 mg tablet mg 05/02/24 History multivitamin 1 tab PO DAILY 05/02/24 05/23/24 History omega 0-qbi-wxk-fish oil 1,000 mg 1 cap PO DAILY 05/02/24 05/23/24 History (120 mg-180 mg) capsule (Fish Oil) rivaroxaban 20 mg tablet (Xarelto) mg 05/02/24 History spironolactone 25 mg tablet mg 05/02/24 History Allergies Allergy/AdvReac Type Severity Reaction Status Date / Time No Known Drug Allergies Allergy Verified 05/23/24 10:14 Exam Narrative Exam Narrative: Psych-alert and oriented x 3. Attentive and appropriate, constitutionally normal, displays normal mood and affect per situation. There are no obvious deficits in memory, reasoning, or intellect.? Skin-no obvious rashes, bruising, erythema noted to the patient's area of pain.? Extremities- extremities are warm with minimal edema and palpable pulses. Lumbar-tenderness to palpation noted in the lumbar spine and paraspinal musculature. Pain is elicited with flexion, extension, and lateral rotation of the lumbar spine. Range of motion is diminished with these motions. Facet loading maneuvers are mildly positive.? Strength-noted to be unremarkable Sensory-no notable sensory deficits in the bilateral lower extremities to touch or pinprick in all dermatomal distributions Coordination remains intact.? Gait remains non-antalgic. Constitutional Documenting provider has reviewed patient's vital signs: yes Common normals: no apparent distress, oriented x3, healthy appearing, alert and well nourished General appearance: cooperative HENND Common normals: normocephalic, hearing grossly normal bilaterally and moist oral mucous membranes Head and scalp: normocephalic Eye Common normals: PERRL Pupil: PERRL Neck & C-Spine Common normals: full ROM General: normal visual inspection Chest Common normals: inspection of chest normal Respiratory Common normals: normal respiratory effort, no retractions and no use of accessory muscles Neuro Common normals: oriented x3, CN's II-XII intact bilaterally, moves all extremities, no focal motor deficits, no sensory deficits noted and deep tendon reflexes 2+ bilaterally Sensorium/orientation: alert Motor exam: strength 5/5 throughout and no movement abnormalities noted Psych Common normals: mental status grossly normal, thought process normal, c ooperative, affect normal, speech normal and activity/motor behavior normal Speech: normal speech Thought process: normal thought process Results Additional Findings Additional findings: If on a controlled substance or opioids, I have checked an [place]AR[place] report on this patient and there are no aberrancies noted in the prescribing history.??If on a controlled substance or opioid a drug screen was completed and reviewed within the last year, and if there has not been a drug screen completed we ordered one today to monitor higher risk, state monitored pain medication use. As part of providing excellent, safe, comprehensive care, the following was completed at our patient's visit: 1. A medication reconciliation and review to ensure accurate knowledge of current/active medications, including asking our patients to inform us about any bytv-xxs-dhwexwf medications or herbal remedies/nutritional supplements/alternative remedies. 2. A review to specifically ensure our patients have had annual screening for screening for depression, screening for tobacco use, and screening for unhealthy alcohol use. For concerning screenings had a discussion with the patient, provided patient education, and recommended follow-up with primary care provider when appropriate. If patient noted with a risk of falling, they received education on strength, gait, and balance training to prevent future risk of falling. Assessment and Plan Assessment and Plan (1) Lumbar stenosis with neurogenic claudication: (2) Lumbar spondylosis: Plan continue HEP as tolerated f/u 3 months, sooner if needed
== END 2024-06-02 07:56 | disposition home or self-care (01) ==
LOC: PM 07:56
PROVIDERS: PCP Family Medicine; Visit Provider Nurse Practitioner
DX: M47.816 Spondylosis without myelopathy or radiculopathy, lumbar region (principal); M48.062 Spinal stenosis, lumbar region with neurogenic claudication
CPT/HCPCS: G0463

== ENCOUNTER 2024-08-31 08:09 | Outpatient (OUT) | payer OTHER, SELFPAY ==
--- OUTSIDE RECORDS SUMMARY | 2024-08-31 08:12 | XMS_ITS | CCD ---
Author Organization [facility] Care Team Providers Care Supervisor Pressing Department Name Role Phone PHYSICIAN, DEFAULT Unavailable Unavailable PHYSICIAN, DEFAULT Unavailable Unavailable CHLOÉ, HANI Unavailable Unavailable YURY FUNEZ AM Unavailable Unavailable KACY JACOBSON Unavailable Unavailable RODOLFOPRIMO COLLAZO R Unavailable Unavailable SD Unavailable Unavailable UNKNOWN, PROVIDER Unavailable Unavailable PHYSICIAN, DEFAULT Unavailable Unavailable PHYSICIAN, DEFAULT Unavailable Unavailable INDIRA KACY Unavailable Unavailable RENU ZARCO Consulting Unavailable HOY ., DR WOODRUFF Primary Care Unavailable HAROLDO, RENU Admitting Unavailable RENU ZARCO Attending Unavailable RENU ZARCO Attending Unavailable HAROLDO, RENU Consulting Unavailable HOY ., DR WOODRUFF Primary Care Unavailable HAROLDO, RENU Admitting Unavailable HAROLDO, RENU Consulting Unavailable HAROLDO, RENU Admitting Unavailable HOY .DR [...] PCP Primary Care Unavailable Bedocs, Dr. 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] Onset: 09-10-2018 Episodic [...] Range Facility Office Visiton 11-10-2023 Follow-up visit [id number] Susanna Hogue 1960 M Date Provider Department Center 11/10/2023 RANDY JOHNSTON BRITNEY [facility] Family History Problem Relation Age of Onset Heart attack Maternal Grandfather Family Status - Relation Status Age at Maternal Grandfather Level of Service:85427 SD OFFICE/OUTPATIENT ESTABLISHED LOW MDM 20 MIN Normal [facility] Orders Onlyon 11-10-2023 Orders Only [id number] Susanna Hogue naldo Greenberg 1960 M Date Provider Department Center 11/10/2023 CRISTINO AYALA Jesse Janelle Family History Problem Relation Age of Onset Heart attack Maternal Grandfather Family Status - Relation Status Age at Maternal Grandfather [facility] XR lumbar spine 6V w bending on 10-01-2023 XR lumbar spine 6V w bending [facility] [place] [address] [place] [address] XRay Report Signed Patient: eRece Hogue MR#: [id number] : 1960 Acct:[id number] Age/Sex: 63 / M ADM Date: 10/01/23 Loc: XD Room: Type: [facility] Attending Dr: Sher Whitfield MD Copies to: [...] Nila Christensen M.D.10/01/2023 12:35 PM Dictation Location: [place] [address] Transcribed By: [facility] 10/01/23 1235 Dictated By: Nila Christensen MD 10/01/23 1226 Signed By: 10/01/23 1235 [facility] Office Visiton 04-01-2023 Follow-up visit [id number] Susanna Hogue naldo Greenberg 1960 M Date Provider Department Center 04/01/2023 1596-KATHE DE DIOS BH CARD [facility] Family History Problem Relation Age of Onset Heart attack Maternal Grandfather Family Status - Relation Status Age at Maternal Grandfather Level of Service:81580 SD OFFICE/OUTPATIENT ESTABLISHED MOD MDM 30-39 MIN Reason for Visit and Comments: Atrial Fibrillation [80] Hypertension [426868] Normal [facility] Dermatopathologyon 3 Dermatopathology Name: REECE HOGUEMayank Pathologist: JAIMEE NEGRETE MD Date of Procedure: 02/24/2023 Date Received: 02/24/2023 Date Reported 02/25/2023 Submitting Physician: LUKE REINOSO MD, Location: [facility] Copy To/Referring/Attending: MD KAUR PERDOMO FINAL DIAGNOSIS 4 SLIDES, [facility], #[id number] (BX: 02/03/2023) SKIN, LEFT NASAL SIDEWALL, SHAVE [...] REPORT A. 4 SLIDES, [facility], #[id number] (BX: 02/03/2023): SPECIMEN Procedure: Biopsy, shave Specimen [...] ADDITIONAL FINDINGS Additional Findings: None ADDITIONAL TESTING Lease Administration Analyst Blocks: Normal Block: None Tumor Block: A1 Electronically Signed Out By JAIMEE NEGRETE MD/[facility] Diagnostic interpretation performed at [facility] [address] 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 LENTIGO Specimens Submitted As: A: 4 SLIDES, [facility], #[id number] (BX: 02/03/2023) Gross Description: Received for consultation from [facility] are four slides labeled [id number] (BX: 02/03/2023) along with the corresponding pathology report. Slide/Block Description 4 SLIDES, [id number]. Keep Slides: N Slides Returned: N Personal Consult: N Normal [facility] Comment on above: Performed By: #### D [...] JO RUSSELL Date: 2023-02-18 14:29 Normal [facility] INSULINon 01-23-2023 Insulin 7.9 uIU/mL Normal 2.6-24.9 [facility] Comment on above: Performed By: #### T 7, URIC, TSH, CMP, LIPID #### [facility] [address] [place] [address] Dr. Ayush Sorto CBC AUTO DIFFon 01-22-2023 BASO # 0.0 103/ul Normal 0.0-0.1 [facility] Comment on above: Performed By: #### C BC #### [facility] [address] [place] [address] Dr. Ayush Sorto Basophils/100 WBC (Bld) 0.6 % Normal 0.2-2.0 [facility] Comment on above: Performed By: #### C BC #### [facility] [address] [place] [address] Dr. Ayush Sorto EO # 0.2 103/ul Normal 0.0-0.7 [facility] Comment on above: Performed By: #### C BC #### [facility] [address] [place] [address] Dr. Ayush Sorto Eosinophils/100 WBC (Bld) 2.3 % Normal 0.9-7.0 [facility] Comment on above: Performed By: #### C BC #### [facility] [address] [place] [address] Dr. Ayush Sorto Erythrocyte distribution width (RBC) [Ratio] 13.2 % Normal 11.0-15.0 [facility] Comment on above: Performed By: #### C BC #### [facility] [address] [place] [address] Dr. Ayush Sorto Hematocrit (Bld) [Volume fraction] 48.6 % Normal 42.0-54.0 [facility] Comment on above: Performed By: #### C BC #### [facility] [address] [place] [address] Dr. Ayush Sorto Hemoglobin (Bld) [Mass/Vol] 16.4 g/dL Normal 14.0-18.0 [facility] Comment on above: Performed By: #### C BC #### [facility] [address] [place] [address] Dr. Ayush Sorto IG # 0.02 10e3/ul Normal 0.00-0.03 [facility] Comment on above: Performed By: #### C BC #### [facility] [address] [place] [address] Dr. Ayush Sorto IG % 0.3 % Normal 0.0-0.5 [facility] Comment on above: Performed By: #### C BC #### [facility] [address] [place] [address] Dr. Ayush Sorto LYMPH # 1.6 103/ul Normal 1.2-3.8 [facility] Comment on above: Performed By: #### C BC #### [facility] [address] [place] [address] Dr. Ayush Sorto Lymphocytes/100 WBC (Bld) 24.7 % Normal 20.5-60.0 [facility] Comment on above: Performed By: #### C BC #### [facility] [address] [place] [address] Dr. Ayush Sorto MANUAL DIFF REQ NO Normal [facility] Comment on above: Performed By: #### C BC #### [facility] [address] [place] [address] Dr. Ayush Sorto MCH (RBC) [Entitic mass] 30.0 pg Normal 25.9-34.0 [facility] Comment on above: Performed By: #### C BC #### [facility] [address] [place] [address] Dr. Ayush Sorto MCHC (RBC) [Mass/Vol] 33.7 g/dL Normal 29.9-35.2 [facility] Comment on above: Performed By: #### C BC #### [facility] [address] [place] [address] Dr. Ayush Sorto MCV (RBC) [Entitic vol] 89.0 fL Normal 80.0-94.0 [facility] Comment on above: Performed By: #### C BC #### [facility] [address] [place] [address] Dr. Ayush Sorto MONO # 0.7 103/ul Normal 0.3-0.8 [facility] Comment on above: Performed By: #### C BC #### [facility] [address] [place] [address] Dr. Ayush Sorto Monocytes/100 WBC (Bld) 10.1 % Normal 1.7-12.0 [facility] Comment on above: Performed By: #### C BC #### [facility] [address] [place] [address] Dr. Ayush Sorto NEUT # 4.1 103/ul Normal 1.4-6.5 [facility] Comment on above: Performed By: #### C BC #### [facility] [address] [place] [address] Dr. Ayush Sorto Neutrophils/100 WBC (Bld) 62.0 % Normal 43.0-75.0 [facility] Comment on above: Performed By: #### C BC #### [facility] [address] [place] [address] Dr. Ayush Sorto Platelet mean volume (Bld) [Entitic vol] 8.6 fL Critically low 9.5-13.5 [facility] Comment on above: Performed By: #### C BC #### [facility] [address] [place] [address] Dr. Ayush Sorto PLT 248 103/ul Normal 150-450 [facility] Comment on above: Performed By: #### C BC #### [facility] [address] [place] [address] Dr. Ayush Sorto RBC 5.46 106/ul Normal 4.70-6.10 [facility] Comment on above: Performed By: #### C BC #### [facility] [address] [place] [address] Dr. Ayush Sorto WBC 6.6 103/ul Normal 4.0-11.0 [facility] Comment on above: Performed By: #### C BC #### [facility] [address] [place] [address] Dr. Ayush Sorto FREE THYROXINE INDEX T7on FTI 3.31 Normal 1.30-4.50 [facility] Comment on above: Performed By: #### T 7, URIC, TSH, CMP, LIPID #### [facility] [address] [place] [address] Dr. Ayush Sorto T3U 36.0 % Normal 33.0-40.0 [facility] Comment on above: Performed By: #### T 7, URIC, TSH, CMP, LIPID #### [facility] [address] [place] [address] Dr. Ayush Sorto T4 [Mass/Vol] 9.20 ug/dL Normal 4.50-12.10 [facility] Comment on above: Performed By: #### T 7, URIC, TSH, CMP, LIPID #### [facility] [address] [place] [address] Dr. Ayush Sorto GLYCOHEMOGLOBIN A1Con 2022 ADA RECOMMENDATION SEE BELOW Normal [facility] Comment on above: Result Comment: ADA RECOMMENDED LIMIT 4.0 - 6.0 ADA THERAPEUTIC TARGET < 7.0 ACTION SUGGESTED > 7.0 Performed By: #### T 7, URIC, TSH, CMP, LIPID #### [facility] [address] [place] [address] [address] Ayush Sorto Glucose [Mass/Vol] 117 mg/dL Normal [facility] Comment on above: Performed By: #### T 7, URIC, TSH, CMP, LIPID #### [facility] [address] [place] [address] [address] Ayush Sorto HbA1c (Bld) [Mass fraction] 5.7 % Normal 4.5-6.2 [facility] Comment on above: Performed By: #### T 7, URIC, TSH, CMP, LIPID #### [facility] [address] [place] [address] [address] Ayush Sorto LIPID PROFILEon 01-22-2023 CHOL-HDL RATIO NORM SEE BELOW Normal [facility] Comment on above: Result Comment: 3.3 - 4.4 LOW RISK 4.4 - 7.1 AVERAGE RISK 7.1 - 11.0 MODERATE RISK >11.0 HIGH RISK Performed By: #### T 7, URIC, TSH, CMP, LIPID #### [facility] [address] [place] [address] [address] Ayush Sorto Cholesterol [Mass/Vol] 216 mg/dL Critically high <=200 [facility] Comment on above: Performed By: #### T 7, URIC, TSH, CMP, LIPID #### [facility] [address] [place] [address] [address] Ayush Sorto Cholesterol in HDL [Mass/Vol] 68 mg/dL Critically high 40-60 [facility] Comment on above: Performed By: #### T 7, URIC, TSH, CMP, LIPID #### [facility] [address] [place] [address] [address] Ayush Sorto Cholesterol in LDL [Mass/Vol] 136.6 mg/dL Normal [facility] Comment on above: Performed By: #### T 7, URIC, TSH, CMP, LIPID #### [facility] [address] [place] [address] [address] Ayush Sorto Cholesterol.total/C holesterol in HDL [Mass ratio] 3.2 {ratio} Normal [facility] Comment on above: Performed By: #### T 7, URIC, TSH, CMP, LIPID #### [facility] [address] [place] [address] [address] Ayush Sorto HDL NORMAL > or = 60 mg/dl - LO W CARDIOVASCULAR RISK <40 mg/dl - HIGH CARDIOVASCULAR RISK Normal [facility] Comment on above: Performed By: #### T 7, URIC, TSH, CMP, LIPID #### [facility] [address] [place] [address] [address] Ayush Sorto LDL CALC NORMAL SEE BELOW Normal [facility] Comment on above: Result Comment: <100 mg/dl OPTIMAL 100 - 129 mg/dl NEAR OR ABOVE OPTIMAL 130 - 159 mg/dl BORDERLINE HIGH 160 - 189 mg/dl HIGH >190 mg/dl VERY HIGH Performed By: #### T 7, URIC, TSH, CMP, LIPID #### [facility] [address] [place] [address] [address] Ayush Sorto Triglyceride [Mass/Vol] 57 mg/dL Normal <=150 [facility] Comment on above: Performed By: #### T 7, URIC, TSH, CMP, LIPID #### [facility] [address] [place] [address] [address] Ayush Sorto VLDL CALC 11.4 mg/dL Normal [facility] Comment on above: Performed By: #### T 7, URIC, TSH, CMP, LIPID #### [facility] [address] [place] [address] [address] Ayush Sorto PROF 14(COMP METB)on 023 Albumin [Mass/Vol] 4.0 g/dL Normal 3.4-5.0 [facility] Comment on above: Performed By: #### T 7, URIC, TSH, CMP, LIPID #### [facility] [address] [place] [address] [address] Ayush Sorto Albumin/Globulin [Mass ratio] 1.2 {ratio} Normal [facility] Comment on above: Performed By: #### T 7, URIC, TSH, CMP, LIPID #### [facility] [address] [place] [address] [address] Ayush Sorto ALP [Catalytic activity/Vol] 85 U/L Normal 46-116 [facility] Comment on above: Performed By: #### T 7, URIC, TSH, CMP, LIPID #### [facility] [address] [place] [address] Dr. Ayush Sorto ALT [Catalytic activity/Vol] 28 U/L Normal 16-63 [facility] Comment on above: Performed By: #### T 7, URIC, TSH, CMP, LIPID #### [facility] [address] [place] [address] Dr. Ayush Sorto Anion gap [Moles/Vol] 12.9 mmol/L Normal [facility] Comment on above: Performed By: #### T 7, URIC, TSH, CMP, LIPID #### [facility] [address] [place] [address] Dr. Ayush Sorto AST [Catalytic activity/Vol] 23 U/L Normal 15-37 [facility] Comment on above: Performed By: #### T 7, URIC, TSH, CMP, LIPID #### [facility] [address] [place] [address] Dr. Ayush Sorto Bilirubin [Mass/Vol] 1.1 mg/dL Critically high 0.2-1.0 [facility] Comment on above: Performed By: #### T 7, URIC, TSH, CMP, LIPID #### [facility] [address] [place] [address] Dr. Ayush Sorto Calcium [Mass/Vol] 9.2 mg/dL Normal 8.5-10.1 [facility] Comment on above: Performed By: #### T 7, URIC, TSH, CMP, LIPID #### [facility] [address] [place] [address] Dr. Ayush Sorto Chloride [Moles/Vol] 103 mmol/L Normal 98-107 [facility] Comment on above: Performed By: #### T 7, URIC, TSH, CMP, LIPID #### [facility] [address] [place] [address] Dr. Ayush Sorto CO2 [Moles/Vol] 27.9 mmol/L Normal 21.0-32.0 [facility] Comment on above: Performed By: #### T 7, URIC, TSH, CMP, LIPID #### [facility] [address] [place] [address] [address] Ayush Sorto Creatinine [Mass/Vol] 0.88 mg/dL Normal 0.70-1.30 [facility] Comment on above: Performed By: #### T 7, URIC, TSH, CMP, LIPID #### [facility] [address] [place] [address] Dr. Ayush Sorto EGFR-AF YEMENI >60 Normal >=60 [facility] Comment on above: Performed By: #### T 7, URIC, TSH, CMP, LIPID #### [facility] [address] [place] [address] Dr. Ayush Sorto EGFR-NON AF YEMENI >60 Normal >=60 [facility] Comment on above: Performed By: #### T 7, URIC, TSH, CMP, LIPID #### [facility] [address] [place] [address] Dr. Ayush Sorto Globulin (S) [Mass/Vol] 3.4 g/dL Normal [facility] Comment on above: Performed By: #### T 7, URIC, TSH, CMP, LIPID #### [facility] [address] [place] [address] Dr. Ayush Sorto Glucose [Mass/Vol] 93 mg/dL Normal 74-106 [facility] Comment on above: Performed By: #### T 7, URIC, TSH, CMP, LIPID #### [facility] [address] [place] [address] Dr. Ayush Sorto Potassium [Moles/Vol] 4.8 mmol/L Normal 3.5-5.1 [facility] Comment on above: Performed By: #### T 7, URIC, TSH, CMP, LIPID #### [facility] [address] [place] [address] Dr. Ayush Sorto Protein [Mass/Vol] 7.4 g/dL Normal 6.4-8.2 [facility] Comment on above: Performed By: #### T 7, URIC, TSH, CMP, LIPID #### [facility] [address] [place] [address] Dr. Ayush Sorto Sodium [Moles/Vol] 139 mmol/L Normal 136-145 [facility] Comment on above: Performed By: #### T 7, URIC, TSH, CMP, LIPID #### [facility] [address] [place] [address] Dr. Ayush Sorto Urea nitrogen [Mass/Vol] 23.0 mg/dL Critically high 7.0-18.0 [facility] Comment on above: Performed By: #### T 7, URIC, TSH, CMP, LIPID #### [facility] [address] [place] [address] Dr. Ayush Sorto Urea nitrogen/Creatinine [Mass ratio] 26.1 mg/mg Normal [facility] Comment on above: Performed By: #### T 7, URIC, TSH, CMP, LIPID #### [facility] [address] [place] [address] Dr. Ayush Sorto TSHon 01-22-2023 TSH 1.145 uIU/mL Normal 0.358-3.[address] [facility] Comment on above: Performed By: #### T 7, URIC, TSH, CMP, LIPID #### [facility] [address] [place] [address] Dr. Ayush Sorto URIC ACID SERUMon 01-22-2023 Urate [Mass/Vol] 6.8 mg/dL Normal 3.5-7.2 [facility] Comment on above: Performed By: #### T 7, URIC, TSH, CMP, LIPID #### [facility] [address] [place] [address] Dr. Ayush Sorto VITAMIN D 25 OHon 01-22-2023 VIT D 25-OH 72.7 ng/mL Normal [facility] Comment on above: Performed By: #### V ITAD, PSASC #### [facility] [address] [place] [address] Dr. Ayush Sorto VIT D RANGES SEE BELOW Normal [facility] Comment on above: Result Comment: <20 ng/mL Vit D deficient 20 - <30 ng/mL Vit D insufficient 30 - 100 ng/mL Vit D sufficient >100 ng/mL Potential Toxicity Performed By: #### V ITAD, PSASC #### [facility] [address] [place] [address] Dr. Ayush Sorto PROF CHEM 8 (BAS METB)on Anion gap [Moles/Vol] 10.1 mmol/L Normal [facility] Comment on above: Performed By: #### T 7, URIC, TSH, CMP, LIPID #### [facility] [address] [place] [address] Dr. Ayush Sorto Calcium [Mass/Vol] 9.3 mg/dL Normal 8.5-10.1 [facility] Comment on above: Performed By: #### T 7, URIC, TSH, CMP, LIPID #### [facility] [address] [place] [address] Dr. Ayush Sorto Chloride [Moles/Vol] 102 mmol/L Normal 98-107 [facility] Comment on above: Performed By: #### T 7, URIC, TSH, CMP, LIPID #### [facility] [address] [place] [address] Dr. Ayush Sorto CO2 [Moles/Vol] 31.8 mmol/L Normal 21.0-32.0 [facility] Comment on above: Performed By: #### T 7, URIC, TSH, CMP, LIPID #### [facility] [address] [place] [address] Dr. Ayush Sorto Creatinine [Mass/Vol] 1.03 mg/dL Normal 0.70-1.30 [facility] Comment on above: Performed By: #### T 7, URIC, TSH, CMP, LIPID #### [facility] [address] [place] [address] Dr. Ayush Sorto EGFR-AF YEMENI >60 Normal >=60 [facility] Comment on above: Performed By: #### T 7, URIC, TSH, CMP, LIPID #### [facility] [address] [place] [address] Dr. Ayush Sorto EGFR-NON AF YEMENI >60 Normal >=60 [facility] Comment on above: Performed By: #### T 7, URIC, TSH, CMP, LIPID #### [facility] [address] [place] [address] Dr. Ayush Sorto Glucose [Mass/Vol] 121 mg/dL Critically high 74-106 [facility] Comment on above: Performed By: #### T 7, URIC, TSH, CMP, LIPID #### [facility] [address] [address] [address] Ayush Sorto Potassium [Moles/Vol] 4.9 mmol/L Normal 3.5-5.1 [facility] Comment on above: Performed By: #### T 7, URIC, TSH, CMP, LIPID #### [facility] [address] [address] [address] Ayush Sorto Sodium [Moles/Vol] 139 mmol/L Normal 136-145 [facility] Comment on above: Performed By: #### T 7, URIC, TSH, CMP, LIPID #### [facility] [address] [place] [address] Dr. Ayush Sorto Urea nitrogen [Mass/Vol] 15.0 mg/dL Normal 7.0-18.0 [facility] Comment on above: Performed By: #### T 7, URIC, TSH, CMP, LIPID #### [facility] [address] [place] [address] Dr. Ayush Sorto Urea nitrogen/Creatinine [Mass ratio] 14.6 mg/mg Normal [facility] Comment on above: Performed By: #### T 7, URIC, TSH, CMP, LIPID #### [facility] [address] [place] [address] Dr. Ayush Sorto ECHOCARDIO M/2D COMPLETEon 1 11-24-2021 ECHOCARDIO M/2D COMPLETE Patient: REECE HOGUE Exam Date: 09/24/2022 : 1960 Gender:M Ordering : RENU ZARCO [facility] Admission #: [id number] Family : DR KACY JACOBSON . Order #: [id number] CLICK HERE TO VIEW EXAM ECHOCARDIOGRAM REPORT [...] M.D. on 09/24/2022 at 16:24 Normal [facility] CBC AUTO DIFFon 09-10-2022 BASO # 0.1 103/ul Normal 0.0-0.1 [facility] Comment on above: Performed By: #### C BC #### [facility] [address] [address] [address] Ayush Sorto Basophils/100 WBC (Bld) 0.8 % Normal 0.2-2.0 [facility] Comment on above: Performed By: #### C BC #### [facility] [address] [address] [address] Ayush Sorto EO # 0.1 103/ul Normal 0.0-0.7 [facility] Comment on above: Performed By: #### C BC #### [facility] [address] [place] [address] Dr. Ayush Sorto Eosinophils/100 WBC (Bld) 1.3 % Normal 0.9-7.0 [facility] Comment on above: Performed By: #### C BC #### [facility] [address] [place] [address] Dr. Ayush Sorto Erythrocyte distribution width (RBC) [Ratio] 12.8 % Normal 11.0-15.0 [facility] Comment on above: Performed By: #### C BC #### [facility] [address] [place] [address] Dr. Ayush Sorto Hematocrit (Bld) [Volume fraction] 48.5 % Normal 42.0-54.0 [facility] Comment on above: Performed By: #### C BC #### [facility] [address] [place] [address] Dr. Ayush Sorto Hemoglobin (Bld) [Mass/Vol] 16.2 g/dL Normal 14.0-18.0 [facility] Comment on above: Performed By: #### C BC #### [facility] [address] [place] [address] Dr. Ayush Sorto IG # 0.01 10e3/ul Normal 0.00-0.03 [facility] Comment on above: Performed By: #### C BC #### [facility] [address] [place] [address] Dr. Ayush Sorto IG % 0.2 % Normal 0.0-0.5 [facility] Comment on above: Performed By: #### C BC #### [facility] [address] [place] [address] Dr. Ayush Sorto LYMPH # 1.0 103/ul Critically low 1.2-3.8 [facility] Comment on above: Performed By: #### C BC #### [facility] [address] [place] [address] Dr. Ayush Sorto Lymphocytes/100 WBC (Bld) 15.6 % Critically low 20.5-60.0 [facility] Comment on above: Performed By: #### C BC #### [facility] [address] [place] [address] Dr. Ayush Sorto MANUAL DIFF REQ NO Normal [facility] Comment on above: Performed By: #### C BC #### [facility] [address] [place] [address] Dr. Ayush Sorto MCH (RBC) [Entitic mass] 30.5 pg Normal 25.9-34.0 [facility] Comment on above: Performed By: #### C BC #### [facility] [address] [place] [address] Dr. Ayush Sorto MCHC (RBC) [Mass/Vol] 33.4 g/dL Normal 29.9-35.2 [facility] Comment on above: Performed By: #### C BC #### [facility] [address] [place] [address] Dr. Ayush Sorto MCV (RBC) [Entitic vol] 91.3 fL Normal 80.0-94.0 [facility] Comment on above: Performed By: #### C BC #### [facility] [address] [place] [address] Dr. Ayush Sorto MONO # 0.6 103/ul Normal 0.3-0.8 [facility] Comment on above: Performed By: #### C BC #### [facility] [address] [place] [address] Dr. Ayush Sorto Monocytes/100 WBC (Bld) 9.2 % Normal 1.7-12.0 [facility] Comment on above: Performed By: #### C BC #### [facility] [address] [place] [address] Dr. Ayush Sorto NEUT # 4.5 103/ul Normal 1.4-6.5 [facility] Comment on above: Performed By: #### C BC #### [facility] [address] [place] [address] Dr. Ayush Sorto Neutrophils/100 WBC (Bld) 72.9 % Normal 43.0-75.0 [facility] Comment on above: Performed By: #### C BC #### [facility] [address] [address] [address] Ayush Sorto Platelet mean volume (Bld) [Entitic vol] 8.9 fL Critically low 9.5-13.5 [facility] Comment on above: Performed By: #### C BC #### [facility] [address] [address] [address] Ayush Sorto PLT 226 103/ul Normal 150-450 [facility] Comment on above: Performed By: #### C BC #### [facility] [address] [address] [address] Ayush Sorto RBC 5.31 106/ul Normal 4.70-6.10 [facility] Comment on above: Performed By: #### C BC #### [facility] [address] [place] [address] Dr. Ayush Sorto WBC 6.2 103/ul Normal 4.0-11.0 [facility] Comment on above: Performed By: #### C BC #### [facility] [address] [place] [address] Dr. Ayush Sorto LIPID PROFILEon 09-10-2022 CHOL-HDL RATIO NORM SEE BELOW Normal [facility] Comment on above: Result Comment: 3.3 - 4.4 LOW RISK 4.4 - 7.1 AVERAGE RISK 7.1 - 11.0 MODERATE RISK >11.0 HIGH RISK Performed By: #### T 7, URIC, TSH, CMP, LIPID #### [facility] [address] [place] [address] Dr. Ayush Sorto Cholesterol [Mass/Vol] 206 mg/dL Critically high <=200 [facility] Comment on above: Performed By: #### T 7, URIC, TSH, CMP, LIPID #### [facility] [address] [place] [address] Dr. Ayush Sorto Cholesterol in HDL [Mass/Vol] 73 mg/dL Critically high 40-60 [facility] Comment on above: Performed By: #### T 7, URIC, TSH, CMP, LIPID #### [facility] [address] [place] [address] Dr. Ayush Sorto Cholesterol in LDL [Mass/Vol] 123.2 mg/dL Normal [facility] Comment on above: Performed By: #### T 7, URIC, TSH, CMP, LIPID #### [facility] [address] [place] [address] Dr. Ayush Sorto Cholesterol.total/C holesterol in HDL [Mass ratio] 2.8 {ratio} Normal [facility] Comment on above: Performed By: #### T 7, URIC, TSH, CMP, LIPID #### [facility] [address] [place] [address] Dr. Ayush Sorto HDL NORMAL > or = 60 mg/dl - LO W CARDIOVASCULAR RISK <40 mg/dl - HIGH CARDIOVASCULAR RISK Normal [facility] Comment on above: Performed By: #### T 7, URIC, TSH, CMP, LIPID #### [facility] [address] [place] [address] Dr. Ayush Sorto LDL CALC NORMAL SEE BELOW Normal [facility] Comment on above: Result Comment: <100 mg/dl OPTIMAL 100 - 129 mg/dl NEAR OR ABOVE OPTIMAL 130 - 159 mg/dl BORDERLINE HIGH 160 - 189 mg/dl HIGH >190 mg/dl VERY HIGH Performed By: #### T 7, URIC, TSH, CMP, LIPID #### [facility] [address] [place] [address] Dr. Ayush Sorto Triglyceride [Mass/Vol] 49 mg/dL Normal <=150 [facility] Comment on above: Performed By: #### T 7, URIC, TSH, CMP, LIPID #### [facility] [address] [place] [address] Dr. Ayush Sorto VLDL CALC 9.8 mg/dL Normal [facility] Comment on above: Performed By: #### T 7, URIC, TSH, CMP, LIPID #### [facility] [address] [place] [address] Dr. Ayush Sorto PROF 14(COMP METB)on 022 Albumin [Mass/Vol] 4.0 g/dL Normal 3.4-5.0 [facility] Comment on above: Performed By: #### T 7, URIC, TSH, CMP, LIPID #### [facility] [address] [address] [address] Ayush Sorto Albumin/Globulin [Mass ratio] 1.2 {ratio} Normal [facility] Comment on above: Performed By: #### T 7, URIC, TSH, CMP, LIPID #### [facility] [address] [address] [address] Ayush Sorto ALP [Catalytic activity/Vol] 83 U/L Normal 46-116 [facility] Comment on above: Performed By: #### T 7, URIC, TSH, CMP, LIPID #### [facility] [address] [address] [address] Ayush Sorto ALT [Catalytic activity/Vol] 35 U/L Normal 16-63 [facility] Comment on above: Performed By: #### T 7, URIC, TSH, CMP, LIPID #### [facility] [address] [place] [address] Dr. Ayush Sorto Anion gap [Moles/Vol] 9.0 mmol/L Normal [facility] Comment on above: Performed By: #### T 7, URIC, TSH, CMP, LIPID #### [facility] [address] [address] [address] Ayush Sorto AST [Catalytic activity/Vol] 26 U/L Normal 15-37 [facility] Comment on above: Performed By: #### T 7, URIC, TSH, CMP, LIPID #### [facility] [address] [address] [address] Ayush Sorto Bilirubin [Mass/Vol] 1.0 mg/dL Normal 0.2-1.0 [facility] Comment on above: Performed By: #### T 7, URIC, TSH, CMP, LIPID #### [facility] [address] [address] [address] Ayush Sorto Calcium [Mass/Vol] 9.5 mg/dL Normal 8.5-10.1 [facility] Comment on above: Performed By: #### T 7, URIC, TSH, CMP, LIPID #### [facility] [address] [address] [address] Ayush Sorto Chloride [Moles/Vol] 105 mmol/L Normal 98-107 [facility] Comment on above: Performed By: #### T 7, URIC, TSH, CMP, LIPID #### [facility] [address] [place] [address] Dr. Ayush Sorot CO2 [Moles/Vol] 27.7 mmol/L Normal 21.0-32.0 [facility] Comment on above: Performed By: #### T 7, URIC, TSH, CMP, LIPID #### [facility] [address] [address] [address] Ayush Sorto Creatinine [Mass/Vol] 0.90 mg/dL Normal 0.70-1.30 [facility] Comment on above: Performed By: #### T 7, URIC, TSH, CMP, LIPID #### [facility] [address] [place] [address] Dr. Ayush Sorto EGFR-AF YEMENI >60 Normal >=60 [facility] Comment on above: Performed By: #### T 7, URIC, TSH, CMP, LIPID #### [facility] [address] [place] [address] Dr. Ayush Sorto EGFR-NON AF YEMENI >60 Normal >=60 [facility] Comment on above: Performed By: #### T 7, URIC, TSH, CMP, LIPID #### [facility] [address] [place] [address] Dr. Ayush Sorto Globulin (S) [Mass/Vol] 3.3 g/dL Normal [facility] Comment on above: Performed By: #### T 7, URIC, TSH, CMP, LIPID #### [facility] [address] [place] [address] Dr. Ayush Sorto Glucose [Mass/Vol] 105 mg/dL Normal 74-106 [facility] Comment on above: Performed By: #### T 7, URIC, TSH, CMP, LIPID #### [facility] [address] [place] [address] Dr. Ayush Sorto Potassium [Moles/Vol] 4.7 mmol/L Normal 3.5-5.1 [facility] Comment on above: Performed By: #### T 7, URIC, TSH, CMP, LIPID #### [facility] [address] [address] [address] Ayush Sorto Protein [Mass/Vol] 7.3 g/dL Normal 6.4-8.2 [facility] Comment on above: Performed By: #### T 7, URIC, TSH, CMP, LIPID #### [facility] [address] [address] [address] Ayush Sorto Sodium [Moles/Vol] 137 mmol/L Normal 136-145 [facility] Comment on above: Performed By: #### T 7, URIC, TSH, CMP, LIPID #### [facility] [address] [address] [address] Ayush Sorto Urea nitrogen [Mass/Vol] 19.0 mg/dL Critically high 7.0-18.0 [facility] Comment on above: Performed By: #### T 7, URIC, TSH, CMP, LIPID #### [facility] [address] [address] [address] Ayush Sorto Urea nitrogen/Creatinine [Mass ratio] 21.1 mg/mg Normal [facility] Comment on above: Performed By: #### T 7, URIC, TSH, CMP, LIPID #### [facility] [address] [address] [address] Ayush Sorto BASIC METABOLIC PANELon 10-2 Calcium mass conc 9.3 mg/dL Normal 8.6-10.3 [facility] Comment on above: Order Comment: No: D o not add to previous draw Performed By: #### 0 0121, 84745, 22547 ####[facility] [facility] [place] [address], [place] Chloride molar conc 102 mmol/L Normal 98-107 [facility] Comment on above: Order Comment: No: D o not add to previous draw Performed By: #### 0 0121, 59739, 78743 ####[facility] [place] [address], [place] CO2 molar conc 27 mmol/L Normal 21-31 [facility] Comment on above: Order Comment: No: D o not add to previous draw Performed By: #### 0 0121, 03719, 23935 ####[facility] [facility] [place] [place] [address], [facility] Creatinine mass conc 0.73 mg/dL Normal 0.70-1.30 [facility] Comment on above: Order Comment: No: D o not add to previous draw Performed By: #### 0 0121, 43580, 10339 ####[facility] [facility] [place] [place] [address], [facility] GFR/1.73 sq M predicted among blacks MDRD vol rate/area (S/P/Bld) mL/min/{1.73_m2} Normal >60 [facility] Comment on above: Order Comment: No: D o not add to previous draw Performed By: #### 0 0121, 71154, 80382 ####[facility] [facility] [place] [address], [facility] GFR/1.73 sq M predicted among non-blacks MDRD vol rate/area (S/P/Bld) mL/min/{1.73_m2} Normal >60 [facility] Comment on above: Order Comment: No: D o not add to previous draw Performed By: #### 0 0121, 47875, 14249 ####[address] [facility] [place] [address], [facility] Glucose mass conc 109 mg/dL High 70-100 [facility] Comment on above: Order Comment: No: D o not add to previous draw Performed By: #### 0 0121, 48326, 13666 ####[address] [facility] [place] [address], [facility] Potassium molar conc 4.1 mmol/L Normal 3.5-5.1 [facility] Comment on above: Order Comment: No: D o not add to previous draw Performed By: #### 0 0121, 80876, 02607 ####[facility] Sodium molar conc 136 mmol/L Normal 136-145 [facility] Comment on above: Order Comment: No: D o not add to previous draw Performed By: #### 0 0121, 29444, 81549 ####[facility] Urea nitrogen mass conc 10 mg/dL Normal 7-25 [facility] Comment on above: Order Comment: No: D o not add to previous draw Performed By: #### 0 0121, 18165, 66557 ####[facility] [facility] CBC COMPLETE BLOOD COUNTon Erythrocyte distribution width Auto Ratio (RBC) 12.8 % Normal 11.5-15.0 [facility] Comment on above: Order Comment: No: D o not add to previous draw Performed By: #### 0 0121, 63328, 79354 ####[facility] [facility] Hematocrit Auto Volume Fraction (Bld) 45.7 % Normal 39.0-50.0 [facility] Comment on above: Order Comment: No: D o not add to previous draw Performed By: #### 0 0121, 88703, 42918 ####[facility] [place] [address], [facility] Hemoglobin mass conc (Bld) 15.6 g/dL Normal 13.0-17.0 [facility] Comment on above: Order Comment: No: D o not add to previous draw Performed By: #### 0 0121, 41961, 30969 ####[facility] [address], [facility] MCH Auto Entitic mass (RBC) 30.4 pg Normal 27.0-33.0 [facility] Comment on above: Order Comment: No: D o not add to previous draw Performed By: #### 0 0121, 47045, 32707 ####[facility] [facility].[address] MCHC Auto mass conc (RBC) 34.1 g/dL Normal 32.0-35.0 [facility] Comment on above: Order Comment: No: D o not add to previous draw Performed By: #### 0 0121, 08466, 16523 ####[facility] [facility].[address] MCV Auto Entitic volume (RBC) 89.1 fL Normal 82.0-98.0 [facility] Comment on above: Order Comment: No: D o not add to previous draw Performed By: #### 0 0121, 69814, 58702 ####[address] [facility].[address] Nucleated RBC/100 WBC Ratio (Bld) 0 % Normal 0-0 [facility] Comment on above: Order Comment: No: D o not add to previous draw Performed By: #### 0 0121, 22478, 99092 ####[facility] [facility].[address] PLAT CNT 218 10*3/uL Normal 150-400 [facility] Comment on above: Order Comment: No: D o not add to previous draw Performed By: #### 0 0121, 79328, 32136 ####[facility] [facility].[address] RBC Auto #/vol (Bld) 5.13 10*6/uL Normal 4.20-5.70 [facility] Comment on above: Order Comment: No: D o not add to previous draw Performed By: #### 0 0121, 96423, 42831 ####[facility] [facility].[address] WBC Auto #/vol (Bld) 6.96 10*3/uL Normal 4.00-10.60 [facility] Comment on above: Order Comment: No: D o not add to previous draw Performed By: #### 0 0121, 38498, 03682 ####[facility] Cardiovascular Lab Reporton 09-14-2018 Cardiovascular Lab Report [facility] MR #: [id number] Physician: Lizette Montano M.D.Medicine Service Date: 09/13/2018Division of Birthdate: 1960Cardiology Room #: [id number] CardiovascularServicesUniversi [facility] [place] by [facility]HcyjgvkRjgfng[address], [place] [address]Uitmg Fax Cardiovascular Laboratory ReportPROCEDURE: Transesophageal echocardiogram and cardioversion.INDICATION: Atrial fibrillation.FELLOW: Tanya Botello M.D.PROCEDURE IN DETAIL: An informed consent was obtained from the patientafter explaining indications, risks, and benefits, and alternatives. Thepatient understood and agreed and signed the consent form. The patient wasbrought to the manager cath lab and MOJGAN was performed under conscious sedation. Thepatient obtained a total of 10 mg of Versed and 100 mcg of fentanyl duringthe procedure. The transesophageal echocardiogram did not show anythrombus in the left atrial appendage. Full MOJGAN report is [facility]el[facility]oledo [facility]. After the transesophageal echocardiogram, synchronized biphasiccardioversion was done with 300 joules of energy. The patient successfullyconverted to sinus rhythm as evidenced by the EKG done postprocedure. Nocomplications throughout the procedure.Electronically Signed by:Lizette Haines M.D. 09/19/2018 08:34 P Lizette Haines M.D. I was present for the entire procedure. Date Dict: 09/13/2018/11:49 A/Al Brownlee Trans: 09/14/2018 06:55 A/Marguerite_JN:[id number]: Kacy Jacobson M.D. [address] [facility] [place] [address] Yury Funez M.D. [address] [place] [address] [place], [place] [id number] Normal [facility] APTTon 09-13-2018 aPTT Coag time (Bld) 86.4 s Critically high 25.0-35.0 [facility] Comment on above: Order Comment: No: [...] PRESENCEOF HEPARIN. Performed By: #### 0 0121, 60433, 31180 ####[facility] [facility].[address] aPTT Coag time (Bld) 41.4 s High 25.0-35.0 [facility] Comment on above: Result Comment: ALL [...] THIS PURPOSE. Performed By: #### 0 0121, 99488, 09347 ####[facility] UFH HEPARIN ASSAYon 09-13-20 18 UNFRACTIONATED HEPARIN 0.64 IU/mL Normal 0.30-0.70 [facility] Comment on above: Result Comment: Baring roxaban and Apixaban will interfere with the anti Xa assay used tomonitor UFH and LMWH. Performed By: #### 0 0121, 76275, 04290 ####[facility] [address], [facility] UNFRACTIONATED HEPARIN 0.25 IU/mL Low 0.30-0.70 [facility] Comment on above: Result Comment: Lisa roxaban and Apixaban will interfere with the anti Xa assay used tomonitor UFH and LMWH. Performed By: #### 0 0121, 97774, 38764 ####[facility] [address], [facility] BASIC METABOLIC PANELon 10-2 Calcium mass conc 8.6 mg/dL Normal 8.6-10.3 [facility] Comment on above: Order Comment: No: D o not add to previous draw Performed By: #### 0 0121, 70328, 41209 ####[facility] [place] [address], [facility] Chloride molar conc 106 mmol/L Normal 98-107 [facility] Comment on above: Order Comment: No: D o not add to previous draw Performed By: #### 0 0121, 28013, 89546 ####[facility] [place] [address], [facility] CO2 molar conc 25 mmol/L Normal 21-31 [facility] Comment on above: Order Comment: No: D o not add to previous draw Performed By: #### 0 0121, 17561, 59980 ####[facility] [address], [facility] Creatinine mass conc 0.64 mg/dL Low 0.70-1.30 [facility] Comment on above: Order Comment: No: D o not add to previous draw Performed By: #### 0 0121, 55324, 13578 ####[facility] [address], [facility] GFR/1.73 sq M predicted among blacks MDRD vol rate/area (S/P/Bld) mL/min/{1.73_m2} Normal >60 [facility] Comment on above: Order Comment: No: D o not add to previous draw Performed By: #### 0 0121, 98438, 78891 ####[facility] [address], [facility] GFR/1.73 sq M predicted among non-blacks MDRD vol rate/area (S/P/Bld) mL/min/{1.73_m2} Normal >60 [facility] Comment on above: Order Comment: No: D o not add to previous draw Performed By: #### 0 0121, 47822, 37050 ####[facility] [address], [facility] Glucose mass conc 100 mg/dL Normal 70-100 [facility] Comment on above: Order Comment: No: D o not add to previous draw Performed By: #### 0 0121, 69287, 57378 ####[facility] [address], [facility] Potassium molar conc 4.0 mmol/L Normal 3.5-5.1 [facility] Comment on above: Order Comment: No: D o not add to previous draw Performed By: #### 0 0121, 70806, 83066 ####[facility] [address], [facility] Sodium molar conc 137 mmol/L Normal 136-145 [facility] Comment on above: Order Comment: No: D o not add to previous draw Performed By: #### 0 0121, 79706, 63717 ####[facility] [address], [facility] Urea nitrogen mass conc 14 mg/dL Normal 7-25 [facility] Comment on above: Order Comment: No: D o not add to previous draw Performed By: #### 0 0121, 54029, 34274 ####[facility] [facility].[address] CBC W/DIFFon 09-12-2018 ABS BASOPHILS 0.0 10*3/uL Normal 0.0-0.2 [facility] Comment on above: Order Comment: No: D o not add to previous draw Performed By: #### 0 0121, 90452, 27061 ####[facility] [facility] [place] [place] [address], [facility] ABS IMM GRANS 0.0 10*3/uL Normal 0.0-0.2 [facility] Comment on above: Order Comment: No: D o not add to previous draw Performed By: #### 0 0121, 80694, 06735 ####[facility] [facility].[address] ABS NEUTROPHILS 3.1 10*3/uL Normal 1.6-7.6 [facility] Comment on above: Order Comment: No: D o not add to previous draw Performed By: #### 0 0121, 87043, 04280 ####[facility] [facility].[address] Basophils Auto #/vol (Bld) 0.7 % Normal 0.0-1.0 [facility] Comment on above: Order Comment: No: D o not add to previous draw Performed By: #### 0 0121, 66710, 24428 ####[facility] [facility] [place] [address], [facility] Eosinophils Auto #/vol (Bld) 0.2 10*3/uL Normal 0.0-0.5 [facility] Comment on above: Order Comment: No: D o not add to previous draw Performed By: #### 0 0121, 01996, 37348 ####[place] [address], [facility] Eosinophils/100 WBC Auto (Bld) 3.6 % Normal 0.0-6.0 [facility] Comment on above: Order Comment: No: D o not add to previous draw Performed By: #### 0 0121, 18770, 54276 ####[facility] Erythrocyte distribution width Auto Ratio (RBC) 12.7 % Normal 11.5-15.0 [facility] Comment on above: Order Comment: No: D o not add to previous draw Performed By: #### 0 0121, 71666, 92439 ####[facility] Hematocrit Auto Volume Fraction (Bld) 45.5 % Normal 39.0-50.0 [facility] Comment on above: Order Comment: No: D o not add to previous draw Performed By: #### 0 0121, 86836, 41827 ####[facility] Hemoglobin mass conc (Bld) 15.2 g/dL Normal 13.0-17.0 [facility] Comment on above: Order Comment: No: D o not add to previous draw Performed By: #### 0 0121, 73790, 14560 ####[facility] IMMATURE GRANS 0.4 % Normal 0.0-1.0 [facility] Comment on above: Order Comment: No: D o not add to previous draw Performed By: #### 0 0121, 07141, 34594 ####[facility] Lymphocytes Auto #/vol (Bld) 1.5 10*3/uL Normal 1.2-4.0 [facility] Comment on above: Order Comment: No: D o not add to previous draw Performed By: #### 0 0121, 15504, 49350 ####[facility] Lymphocytes/100 WBC Auto (Bld) 27.8 % Normal 20.0-45.0 [facility] Comment on above: Order Comment: No: D o not add to previous draw Performed By: #### 0 0121, 46466, 98079 ####[facility] MCH Auto Entitic mass (RBC) 30.0 pg Normal 27.0-33.0 [facility] Comment on above: Order Comment: No: D o not add to previous draw Performed By: #### 0 0121, 82525, 24963 ####[facility] MCHC Auto mass conc (RBC) 33.4 g/dL Normal 32.0-35.0 [facility] Comment on above: Order Comment: No: D o not add to previous draw Performed By: #### 0 0121, 57263, 85562 ####[facility] MCV Auto Entitic volume (RBC) 89.9 fL Normal 82.0-98.0 [facility] Comment on above: Order Comment: No: D o not add to previous draw Performed By: #### 0 0121, 23035, 19126 ####[facility] Monocytes Auto #/vol (Bld) 0.6 10*3/uL Normal 0.1-1.0 [facility] Comment on above: Order Comment: No: D o not add to previous draw Performed By: #### 0 0121, 58330, 90120 ####[facility] MONOS 11.4 % Normal 5.0-12.0 [facility] Comment on above: Order Comment: No: D o not add to previous draw Performed By: #### 0 0121, 04878, 59000 ####[facility] [address], [facility] Neutrophils/100 WBC Auto (Bld) 56.1 % Normal 40.0-72.0 [facility] Comment on above: Order Comment: No: D o not add to previous draw Performed By: #### 0 0121, 60297, 47689 ####[facility] Nucleated RBC/100 WBC Ratio (Bld) 0 % Normal 0-0 [facility] Comment on above: Order Comment: No: D o not add to previous draw Performed By: #### 0 0121, 82680, 41722 ####[facility] [facility].[address] PLAT CNT 188 10*3/uL Normal 150-400 [facility] Comment on above: Order Comment: No: D o not add to previous draw Performed By: #### 0 0121, 97765, 66192 ####[facility] [facility].[address] RBC Auto #/vol (Bld) 5.06 10*6/uL Normal 4.20-5.70 [facility] Comment on above: Order Comment: No: D o not add to previous draw Performed By: #### 0 0121, 56713, 24290 ####[facility]3000 [facility] [place] [address], [facility] WBC Auto #/vol (Bld) 5.54 10*3/uL Normal 4.00-10.60 [facility] Comment on above: Order Comment: No: D o not add to previous draw Performed By: #### 0 0121, 70585, 32976 ####[facility] [place] [address], [facility] MAGNESIUM BLOODon 09-12-2018 Magnesium mass conc 1.9 mg/dL Normal 1.9-2.7 [facility] Comment on above: Order Comment: No: D o not add to previous draw Performed By: #### 0 0121, 19382, 17290 ####[facility] [facility].[address] UFH HEPARIN ASSAYon 09-12-20 UNFRACTIONATED HEPARIN 0.26 IU/mL Low 0.30-0.70 [facility] Comment on above: Result Comment: Baring roxaban and Apixaban will interfere with the anti Xa assay used tomonitor UFH and LMWH. Performed By: #### 0 0121, 48784, 27156 ####[facility] [facility].[address] UNFRACTIONATED HEPARIN 0.72 IU/mL High 0.30-0.70 [facility] Comment on above: Result Comment: Lisa roxaban and Apixaban will interfere with the anti Xa assay used tomonitor UFH and LMWH. Performed By: #### 0 0121, 15207, 08349 ####[facility] [facility].[address] UNFRACTIONATED HEPARIN 0.49 IU/mL Normal 0.30-0.70 [facility] Comment on above: Result Comment: Lisa roxaban and Apixaban will interfere with the anti Xa assay used tomonitor UFH and LMWH. Performed By: #### 0 0121, 14363, 96679 ####[facility]3000 [facility].[address] APTTon 09-11-2018 aPTT Coag time (Bld) 101.0 s Critically high 25.0-35.0 [facility] Comment on above: Order Comment: No: [...] RNAT 615 Performed By: #### 0 0121, 41496, 42022 ####[facility] [address], [facility] BASIC METABOLIC PANELon 10-2 Calcium mass conc 8.9 mg/dL Normal 8.6-10.3 [facility] Comment on above: Order Comment: No: D o not add to previous draw Performed By: #### 0 0121, 99409, 23214 ####[facility] [address], [facility] Chloride molar conc 106 mmol/L Normal 98-107 [facility] Comment on above: Order Comment: No: D o not add to previous draw Performed By: #### 0 0121, 61485, 99294 ####[facility] [address], [facility] CO2 molar conc 25 mmol/L Normal 21-31 [facility] Comment on above: Order Comment: No: D o not add to previous draw Performed By: #### 0 0121, 36966, 45615 ####[place] [address] [address], [facility] Creatinine mass conc 0.84 mg/dL Normal 0.70-1.30 [facility] Comment on above: Order Comment: No: D o not add to previous draw Performed By: #### 0 0121, 90730, 56075 ####[facility] [address], [facility] GFR/1.73 sq M predicted among blacks MDRD vol rate/area (S/P/Bld) mL/min/{1.73_m2} Normal >60 [facility] Comment on above: Order Comment: No: D o not add to previous draw Performed By: #### 0 0121, 18709, 87319 ####[facility] [facility] [place] [address], [facility] GFR/1.73 sq M predicted among non-blacks MDRD vol rate/area (S/P/Bld) mL/min/{1.73_m2} Normal >60 [facility] Comment on above: Order Comment: No: D o not add to previous draw Performed By: #### 0 0121, 99202, 71020 ####[facility] [facility].[address] Glucose mass conc 103 mg/dL High 70-100 [facility] Comment on above: Order Comment: No: D o not add to previous draw Performed By: #### 0 0121, 91605, 55034 ####[facility] [facility].[address] Potassium molar conc 4.0 mmol/L Normal 3.5-5.1 [facility] Comment on above: Order Comment: No: D o not add to previous draw Performed By: #### 0 0121, 20049, 45758 ####[facility] [facility].[address] Sodium molar conc 138 mmol/L Normal 136-145 [facility] Comment on above: Order Comment: No: D o not add to previous draw Performed By: #### 0 0121, 22657, 11227 ####[facility] [facility].[address] Urea nitrogen mass conc 20 mg/dL Normal 7-25 [facility] Comment on above: Order Comment: No: D o not add to previous draw Performed By: #### 0 0121, 60226, 70282 ####[facility] [place] [address], [facility] CBC W/DIFFon 09-11-2018 ABS BASOPHILS 0.0 10*3/uL Normal 0.0-0.2 [facility] Comment on above: Order Comment: No: D o not add to previous draw Performed By: #### 5 0103 ####[facility] [facility] [place] [address], [facility] ABS IMM GRANS 0.0 10*3/uL Normal 0.0-0.2 [facility] Comment on above: Order Comment: No: D o not add to previous draw Performed By: #### 5 0103 ####[facility] [place] [address], [facility] ABS NEUTROPHILS 3.1 10*3/uL Normal 1.6-7.6 [facility] Comment on above: Order Comment: No: D o not add to previous draw Performed By: #### 5 0103 ####[facility] [place] [address], [facility] Basophils Auto #/vol (Bld) 0.8 % Normal 0.0-1.0 [facility] Comment on above: Order Comment: No: D o not add to previous draw Performed By: #### 5 0103 ####[facility] [facility] [place] [address], [facility] Eosinophils Auto #/vol (Bld) 0.2 10*3/uL Normal 0.0-0.5 [facility] Comment on above: Order Comment: No: D o not add to previous draw Performed By: #### 5 0103 ####[facility] [place] [address], [facility] Eosinophils/100 WBC Auto (Bld) 3.5 % Normal 0.0-6.0 [facility] Comment on above: Order Comment: No: D o not add to previous draw Performed By: #### 5 0103 ####[facility] [place] [address], [facility] Erythrocyte distribution width Auto Ratio (RBC) 12.8 % Normal 11.5-15.0 [facility] Comment on above: Order Comment: No: D o not add to previous draw Performed By: #### 5 0103 ####[facility] Hematocrit Auto Volume Fraction (Bld) 45.3 % Normal 39.0-50.0 [facility] Comment on above: Order Comment: No: D o not add to previous draw Performed By: #### 5 0103 ####[facility] Hemoglobin mass conc (Bld) 15.3 g/dL Normal 13.0-17.0 [facility] Comment on above: Order Comment: No: D o not add to previous draw Performed By: #### 5 0103 ####[facility] IMMATURE GRANS 0.4 % Normal 0.0-1.0 [facility] Comment on above: Order Comment: No: D o not add to previous draw Performed By: #### 5 3 ####[facility] Lymphocytes Auto #/vol (Bld) 1.4 10*3/uL Normal 1.2-4.0 [facility] Comment on above: Order Comment: No: D o not add to previous draw Performed By: #### 5 0103 ####[facility] Lymphocytes/100 WBC Auto (Bld) 25.9 % Normal 20.0-45.0 [facility] Comment on above: Order Comment: No: D o not add to previous draw Performed By: #### 5 0103 ####[facility] MCH Auto Entitic mass (RBC) 30.5 pg Normal 27.0-33.0 [facility] Comment on above: Order Comment: No: D o not add to previous draw Performed By: #### 5 3 ####[facility] MCHC Auto mass conc (RBC) 33.8 g/dL Normal 32.0-35.0 [facility] Comment on above: Order Comment: No: D o not add to previous draw Performed By: #### 5 3 ####[facility] MCV Auto Entitic volume (RBC) 90.2 fL Normal 82.0-98.0 [facility] Comment on above: Order Comment: No: D o not add to previous draw Performed By: #### 5 3 ####[facility] Monocytes Auto #/vol (Bld) 0.5 10*3/uL Normal 0.1-1.0 [facility] Comment on above: Order Comment: No: D o not add to previous draw Performed By: #### 5 3 ####[facility] MONOS 10.2 % Normal 5.0-12.0 [facility] Comment on above: Order Comment: No: D o not add to previous draw Performed By: #### 5 3 ####[facility] Neutrophils/100 WBC Auto (Bld) 59.2 % Normal 40.0-72.0 [facility] Comment on above: Order Comment: No: D o not add to previous draw Performed By: #### 5 3 ####[facility] Nucleated RBC/100 WBC Ratio (Bld) 0 % Normal 0-0 [facility] Comment on above: Order Comment: No: D o not add to previous draw Performed By: #### 5 0103 ####[facility]3000 [facility] [place] [address], [facility] PLAT CNT 226 10*3/uL Normal 150-400 [facility] Comment on above: Order Comment: No: D o not add to previous draw Performed By: #### 5 0103 ####[facility] [facility] [place] [place] [address], [facility] RBC Auto #/vol (Bld) 5.02 10*6/uL Normal 4.20-5.70 [facility] Comment on above: Order Comment: No: D o not add to previous draw Performed By: #### 5 0103 ####[facility] [facility] [place] [place] [address], [facility] WBC Auto #/vol (Bld) 5.21 10*3/uL Normal 4.00-10.60 [facility] Comment on above: Order Comment: No: D o not add to previous draw Performed By: #### 5 3 ####[facility] [facility].[address] MAGNESIUM BLOODon 09-11-2018 Magnesium mass conc 1.8 mg/dL Low 1.9-2.7 [facility] Comment on above: Order Comment: No: D o not add to previous draw Performed By: #### 0 0121, 05849, 64368 ####[facility] PHOSPHORUS BLOODon 8 Phosphate mass conc 3.0 mg/dL Normal 2.5-5.0 [facility] Comment on above: Order Comment: No: D o not add to previous draw Performed By: #### 0 0121, 69279, 05479 ####[facility] PROTHROMBIN TIMEon 8 INR Coag RelTime (PPP) 1.01 {INR} Normal 0.91-1.16 [facility] Comment on above: Order Comment: [...] OF ACTION, CLINICALEFFECTIVENESS, AND OPTIMAL THERAPEUTIC RANGE. [id number]. Performed By: #### 0 0121, 53970, 84136 ####[facility] [facility].[address] Prothrombin time (PT) Coag time (PPP) 13.3 s Normal 12.3-14.8 [facility] Comment on above: Order Comment: No: D o not add to previous draw Result Comment: ALL RESULTS MUST BE INTERPRETED WITH RESPECT TO BLOOD DRAWING ARTIFACTOR DILUTION ERROR OF ANTICOAGULANT AT THE TIME OF SAMPLING. Performed By: #### 0 0121, 06138, 54860 ####[facility] [facility].[address] TROPONIN-Ion 09-11-2018 Troponin I.cardiac mass conc 0.00 ng/mL Normal 0.00-0.04 [facility] Comment on above: Order Comment: No: D o not add to previous draw Result Comment: REFE RENCE RANGES: 0.00 - 0.14 ng/ml NEGATIVE 0.15 - 0.25 ng/ml INDETERMINATE > 0.25 ng/ml INDICATIVE OF AN M.I. Performed By: #### 3 5200 ####[facility] [facility].[address] UFH HEPARIN ASSAYon 09-11-20 18 UNFRACTIONATED HEPARIN 0.40 IU/mL Normal 0.30-0.70 [facility] Comment on above: Result Comment: Lisa roxaban and Apixaban will interfere with the anti Xa assay used tomonitor UFH and LMWH. Performed By: #### 0 0121, 72046, 54179 ####[facility] [facility].[address] UNFRACTIONATED HEPARIN 0.39 IU/mL Normal 0.30-0.70 [facility] Comment on above: Result Comment: Lisa roxaban and Apixaban will interfere with the anti Xa assay used tomonitor UFH and LMWH. Performed By: #### 0 0121, 21997, 07993 ####[facility] [facility].[address] UNFRACTIONATED HEPARIN 0.70 IU/mL Normal 0.30-0.70 [facility] Comment on above: Result Comment: Baring roxaban and Apixaban will interfere with the anti Xa assay used tomonitor UFH and LMWH. Performed By: #### 0 0121, 72856, 98306 ####[facility] [facility].[address] UNFRACTIONATED HEPARIN 0.49 IU/mL Normal 0.30-0.70 [facility] Comment on above: Result Comment: Lisa roxaban and Apixaban will interfere with the anti Xa assay used tomonitor UFH and LMWH. Performed By: #### 3 0477 ####[facility] APTTon 09-10-2018 aPTT Coag time (Bld) 26.2 s Normal 25.0-35.0 [facility] Comment on above: Result Comment: ALL [...] THIS PURPOSE. Performed By: #### 5 6101, 96251 ####[facility] [place] [address] CBC W/DIFFon 09-10-2018 ABS BASOPHILS 0.0 10*3/uL Normal 0.0-0.2 [facility] Comment on above: Order Comment: No: D o not add to previous draw Performed By: #### 5 0103 ####[address] ABS IMM GRANS 0.0 10*3/uL Normal 0.0-0.2 [facility] Comment on above: Order Comment: No: D o not add to previous draw Performed By: #### 5 0103 ####[place] [address] ABS NEUTROPHILS 6.0 10*3/uL Normal 1.6-7.6 [facility] Comment on above: Order Comment: No: D o not add to previous draw Performed By: #### 5 0103 ####[address] Basophils Auto #/vol (Bld) 0.4 % Normal 0.0-1.0 [facility] Comment on above: Order Comment: No: D o not add to previous draw Performed By: #### 5 0103 ####[address] Eosinophils Auto #/vol (Bld) 0.1 10*3/uL Normal 0.0-0.5 [facility] Comment on above: Order Comment: No: D o not add to previous draw Performed By: #### 5 0103 ####[facility] Eosinophils/100 WBC Auto (Bld) 1.1 % Normal 0.0-6.0 [facility] Comment on above: Order Comment: No: D o not add to previous draw Performed By: #### 5 0103 ####[facility] Erythrocyte distribution width Auto Ratio (RBC) 12.5 % Normal 11.5-15.0 [facility] Comment on above: Order Comment: No: D o not add to previous draw Performed By: #### 5 3 ####[facility] Hematocrit Auto Volume Fraction (Bld) 48.8 % Normal 39.0-50.0 [facility] Comment on above: Order Comment: No: D o not add to previous draw Performed By: #### 5 3 ####[facility] Hemoglobin mass conc (Bld) 16.6 g/dL Normal 13.0-17.0 [facility] Comment on above: Order Comment: No: D o not add to previous draw Performed By: #### 5 3 ####[facility] IMMATURE GRANS 0.3 % Normal 0.0-1.0 [facility] Comment on above: Order Comment: No: D o not add to previous draw Performed By: #### 5 0103 ####[facility] Lymphocytes Auto #/vol (Bld) 1.2 10*3/uL Normal 1.2-4.0 [facility] Comment on above: Order Comment: No: D o not add to previous draw Performed By: #### 5 0103 ####[facility] Lymphocytes/100 WBC Auto (Bld) 14.7 % Low 20.0-45.0 [facility] Comment on above: Order Comment: No: D o not add to previous draw Performed By: #### 5 0103 ####[facility] MCH Auto Entitic mass (RBC) 30.3 pg Normal 27.0-33.0 [facility] Comment on above: Order Comment: No: D o not add to previous draw Performed By: #### 5 0103 ####[facility] MCHC Auto mass conc (RBC) 34.0 g/dL Normal 32.0-35.0 [facility] Comment on above: Order Comment: No: D o not add to previous draw Performed By: #### 5 3 ####[facility] MCV Auto Entitic volume (RBC) 89.2 fL Normal 82.0-98.0 [facility] Comment on above: Order Comment: No: D o not add to previous draw Performed By: #### 5 0103 ####[facility] Monocytes Auto #/vol (Bld) 0.6 10*3/uL Normal 0.1-1.0 [facility] Comment on above: Order Comment: No: D o not add to previous draw Performed By: #### 5 0103 ####[facility] MONOS 7.9 % Normal 5.0-12.0 [facility] Comment on above: Order Comment: No: D o not add to previous draw Performed By: #### 5 0103 ####[facility] [address], [facility] Neutrophils/100 WBC Auto (Bld) 75.6 % High 40.0-72.0 [facility] Comment on above: Order Comment: No: D o not add to previous draw Performed By: #### 5 0103 ####[facility] [facility] Nucleated RBC/100 WBC Ratio (Bld) 0 % Normal 0-0 [facility] Comment on above: Order Comment: No: D o not add to previous draw Performed By: #### 5 0103 ####[facility] [facility].[address] PLAT CNT 243 10*3/uL Normal 150-400 [facility] Comment on above: Order Comment: No: D o not add to previous draw Performed By: #### 5 0103 ####[facility] [facility].[address] RBC Auto #/vol (Bld) 5.47 10*6/uL Normal 4.20-5.70 [facility] Comment on above: Order Comment: No: D o not add to previous draw Performed By: #### 5 3 ####[facility] [facility].[address] WBC Auto #/vol (Bld) 7.87 10*3/uL Normal 4.00-10.60 [facility] Comment on above: Order Comment: No: D o not add to previous draw Performed By: #### 5 3 ####[facility] [facility].[address] COMP METABOLIC PANELon 09-10 Albumin mass conc 4.0 g/dL Normal 3.5-5.7 [facility] Comment on above: Order Comment: No: D o not add to previous draw Performed By: #### 0 0121, 69886, 26507 ####[facility] [address], [facility] ALKALINE PHOSPH 59 IU/L Normal 34-104 [facility] Comment on above: Order Comment: No: D o not add to previous draw Performed By: #### 0 0121, 79716, 85923 ####[facility] [address], [facility] ALT enzyme act/vol 22 U/L Normal 7-52 [facility] Comment on above: Order Comment: No: D o not add to previous draw Performed By: #### 0 0121, 18839, 45796 ####[facility] [address], [facility] AST enzyme act/vol 20 U/L Normal 13-39 [facility] Comment on above: Order Comment: No: D o not add to previous draw Performed By: #### 0 0121, 88716, 33298 ####[facility] [place] [address], [facility] Bilirubin mass conc 0.8 mg/dL Normal 0.3-1.0 [facility] Comment on above: Order Comment: No: D o not add to previous draw Performed By: #### 0 0121, 63227, 83440 ####[facility] [place] [address], [facility] Calcium mass conc 8.8 mg/dL Normal 8.6-10.3 [facility] Comment on above: Order Comment: No: D o not add to previous draw Performed By: #### 0 0121, 57728, 11958 ####[facility] [place] [address], [facility] Chloride molar conc 103 mmol/L Normal 98-107 [facility] Comment on above: Order Comment: No: D o not add to previous draw Performed By: #### 0 0121, 21552, 33965 ####[facility] [address], [facility] CO2 molar conc 28 mmol/L Normal 21-31 [facility] Comment on above: Order Comment: No: D o not add to previous draw Performed By: #### 0 0121, 13468, 23812 ####[facility] [address], [place] Creatinine mass conc 0.93 mg/dL Normal 0.70-1.30 [facility] Comment on above: Order Comment: No: D o not add to previous draw Performed By: #### 0 0121, 92222, 55744 ####[facility] [address], [place] GFR/1.73 sq M predicted among blacks MDRD vol rate/area (S/P/Bld) mL/min/{1.73_m2} Normal >60 [facility] Comment on above: Order Comment: No: D o not add to previous draw Performed By: #### 0 0121, 32722, 12529 ####[facility] [address], [facility] GFR/1.73 sq M predicted among non-blacks MDRD vol rate/area (S/P/Bld) mL/min/{1.73_m2} Normal >60 [facility] Comment on above: Order Comment: No: D o not add to previous draw Performed By: #### 0 0121, 95560, 86707 ####[facility] [address], [place] Glucose mass conc 94 mg/dL Normal 70-100 [facility] Comment on above: Order Comment: No: D o not add to previous draw Performed By: #### 0 0121, 92499, 27766 ####[facility] [address], [place] Potassium molar conc 4.0 mmol/L Normal 3.5-5.1 [facility] Comment on above: Order Comment: No: D o not add to previous draw Performed By: #### 0 0121, 37065, 58895 ####[facility] Protein mass conc 6.8 g/dL Normal 6.0-8.3 [facility] Comment on above: Order Comment: No: D o not add to previous draw Performed By: #### 0 0121, 76960, 96071 ####[facility] Sodium molar conc 140 mmol/L Normal 136-145 [facility] Comment on above: Order Comment: No: D o not add to previous draw Performed By: #### 0 0121, 73054, 21149 ####[facility] Urea nitrogen mass conc 19 mg/dL Normal 7-25 [facility] Comment on above: Order Comment: No: D o not add to previous draw Performed By: #### 0 0121, 15629, 89038 ####[facility] PROTHROMBIN TIMEon 10-19-201 8 INR Coag RelTime (PPP) 0.93 {INR} Normal 0.91-1.16 [facility] Comment on above: Result Comment: ACCC P RECOMMENDED INR FOR WARFARIN THERAPY CONDITION INRPROPHYLAXIS OF VENOUS THROMBOSIS 2-3(HIGH-RISK SURGERY)TREATMENT OF VENOUS THROMBOSIS 2-3TREATMENT OF PULMONARY EMBOLISM 2-3PREVENTION OF SYSTEMIC EMBOLISM: 2-3 ACUTE MYOCARDIAL INFARCTION TISSUE HEART VALVES VALVULAR HEART DISEASE ATRIAL FIBRILLATION RECURRENT SYSTEMIC EMBOLISMMECHANICAL HEART VALVE 2.5-3.5 FROM: ORAL ANTICOAGULANTS. MECHANISM OF ACTION, CLINICALEFFECTIVENESS, AND OPTIMAL THERAPEUTIC RANGE. [id number];108:231S-246S. Performed By: #### 5 6101, 94942 ####[facility] Prothrombin time (PT) Coag time (PPP) 12.5 s Normal 12.3-14.8 [facility] Comment on above: Result Comment: ALL RESULTS MUST BE INTERPRETED WITH RESPECT TO BLOOD DRAWING ARTIFACTOR DILUTION ERROR OF ANTICOAGULANT AT THE TIME OF SAMPLING. Performed By: #### 5 6101, 83135 ####[place] [address] [facility].[address] TROPONIN-Ion 09-10-2018 Troponin I.cardiac mass conc 0.00 ng/mL Normal 0.00-0.04 [facility] Comment on above: Order Comment: No: D o not add to previous draw Result Comment: REFE RENCE RANGES: 0.00 - 0.14 ng/ml NEGATIVE 0.15 - 0.25 ng/ml INDETERMINATE > 0.25 ng/ml INDICATIVE OF AN M.I. Performed By: #### 3 5200 ####[place] [address] [facility].[address] Troponin I.cardiac mass conc 0.00 ng/mL Normal 0.00-0.04 [facility] Comment on above: Result Comment: REFE RENCE RANGES: 0.00 - 0.14 ng/ml NEGATIVE 0.15 - 0.25 ng/ml INDETERMINATE > 0.25 ng/ml INDICATIVE OF AN M.I. Performed By: #### 0 0121, 45217, 66025 ####[facility] [facility] [place] [place] [address], [place] TSH3on 09-10-2018 TSH 3RD GENERATION 1.05 uIU/mL Normal 0.34-5.60 [facility] Comment on above: Performed By: #### 0 0121, 51492, 55364 ####[facility] [address] [address], [facility] Vital Signs Date Time Vital Sign Value Performing Clinician Faci lity 10-01-2023 08:20-0500 Body height 193.04 cm Sher Whitfield Other [employer] Other 10-01-2023 08:20-0500 Body mass index (BMI) [Ratio] 27.75 kg/m2 Sher Whitfield Other [employer] Other 10-01-2023 08:20-0500 Body weight 103.42 kg Sher Whitfield Other [employer] Other 1960 23:00-0500 >na< Ellie Rodríguez Dept. of Dermato logy Encounters Encounter Date Encounter Type Care Provider Facility Start: 05-23-2024 End: 05-23-2024 ambulatory Gold Choi MD Facility: [facility] Start: 05-09-2024 End: 05-09-2024 ambulatory Gold Choi MD Facility: [facility] Start: 05-02-2024 End: 05-02-2024 ambulatory Gold Choi MD Facility: [facility] Start: 11-10-2023 End: 11-10-2023 ambulatory RANDY CARRANZA [facility] Start: 10-01-2023 Office outpatient ne w 30 minutes Sher Whitfield [facility] Start: 10-01-2023 End: 10-01-2023 ambulatory Sher Whitfield Facility:[facility] Start: 10-01-2023 End: 10-01-2023 ambulatory MD Kacy Jacobson Work Phone: [facility] Work Phone: Start: 10-01-2023 End: 10-01-2023 Patient encounter procedure MD Kacy Jacobson Work Phone: [facility] Work Phone: Start: 04-01-2023 End: 04-01-2023 ambulatory [facility] Start: 03-24-2023 Luke Reinoso Dept. of [...] abnormal findings DR KACY JACOBSON . [facility] Start: 01-22-2023 End: 01-23-[address] KACY JACOBSON . Facility:[facility] Start: 01-22-2023 End: 01-23-2023 Encounter for general adult medical examination without abnormal findings DR KACY JACOBSON . Facility:[facility] Start: 12-09-2022 End: 12-10-2022 ambulatory RENU HAROLDO Facility:[facility] Start: 10-27-2022 End: 10-28-2022 ambulatory RENU HAROLDO Facility:[facility] Start: 10-08-2022 End: 10-09-2022 ambulatory RENU HAROLDO Facility:[facility] Start: 09-24-2022 End: 09-25-2022 ambulatory RENU HAROLDO Facility:[facility] Start: 09-10-2022 End: 09-11-2022 ambulatory RENU ZARCO Facility: Start: 09-13-2018 End: 09-14-2018 Patient encounter procedure DEFAULT PHYSICIAN Facility:[facility] Start: 09-10-2018 End: 09-14-2018 Evaluation and management of inpatient AEV LUEVANO Facility:[facility] Start: 08-25-2018 End: 08-26-2018 Patient encounter procedure DEFAULT PHYSICIAN Facility:[facility] Procedures Date Procedure Procedure Detail Performing Clinician Start: 10-01-2023 X-ray of lumbar spin e, six views including bending views MD Kacy Jacobson Work Phone: Start: 03-24-2023 Ellie arita Start: 03-18-2023 Mohs micrographic h/n/h/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 Ayush Sorto Start: 09-13-2018 Congregation of Cardi ac Rhythm, Single LIZETTE V MOUKARBEL Immunizations Immunization Date Immunization Notes Care Provider Taylor madrid 1960 pneumococcal conjuga te vaccine, 7 valent Ellie Rodríguez Dept. of Dermatology Payers Date Payer Category Payer Medicare 2023 Self-pay 2006 Private Health Insurance [id number] 1960 Unknown [id number] 1960 Unknown [id number] 2.16.8 40.1.093067.3.579.2.647 1959 Unknown [id number] 2.16.8 40.1.998372.3.579.2.647 1959 Unknown [id number] 2.16.8 40.1.491824.3.579.2.647 1959 Unknown [id number] 2.16.84 0.1.986953.3.579.2.593 1959 Unknown [id number] 2.16.84 0.1.161877.3.579.2.593 1959 Unknown [id number] 2.16.84 0.1.049704.3.579.2.593 1959 Unknown [id number] 2.16.84 0.1.507592.3.579.2.593 1959 Unknown [id number] 2.16.84 0.1.151139.3.579.2.593 1959 Unknown [id number] 2.16.84 0.1.780147.3.579.2.593 1959 Unknown [id number] 2.16.84 0.1.363409.3.579.2.593 1959 Unknown [id number] 2.16. 840.1.275316.3.579.2.356 1959 Unknown [id number] 2.16. 840.1.485067.3.579.2.356 1959 Unknown [id number] 2.16. 840.1.927230.3.579.2.356 1959 Unknown [id number] 2.16. 840.1.116429.3.579.2.196 1959 Unknown [id number] 2.16. 840.1.347480.3.579.2.196 1959 Unknown [id number] 2.16. 840.1.734517.3.579.2.196 Unknown Unknown [id number] 2.16.8 40.1.925866.3.579.2.531 Social History Date Type Detail Facility Start: 03-02-2023 Dept. of D ermatology Start: 1960 End: 1960 Sex Assigned At Male [facility] Sex Assigned At Sex Assigned At Bir [facility] [employer] Other Goals Date Patient Goal Desired Activity /State Clinical Notes 04-01-2023 to 11-10-2023 Note Date & Type Note Facility 11-10-2023 Note [place] Electrophysiology Consult Note Reason for visit: afib [...] history was recently cardioverted by me at [facility] to SR . He states no [...] rhonchi Cardiovascular Rat (more content not included)... [facility] 11-10-2023 Note Patient here for 6 m o follow up chronic afib. No recent labs or imaging. Denies chest pain, SOB, palpitations, lightheadedness/syncope, and bleeding on Xarelto. BP at home when checked averages around 120/80. Review of Systems Musculoskeletal: Positive for myalgias. All other systems reviewed and are negative. [facility] 10-01-2023 Evaluation note Encounter Date Diagnosis [...] Pain in left leg (ICD-10 - M79.605) [employer] Other [id number] Note-advised to maintian compliance with [facility] Note-BP controlled -ct medications: lisinopril 10mg every day, toprol tartrate 75mg bid, xarelto 20mg, aldactone 25mg qdUnDetwiler [facility] Hospital05-17-2023 Note [id number] 1 for htn, will ct xarelto -DCCV x3 with amio, still has afib controlled rate and known hx of slow VR int0 40bpm -surgical ablation was mentioned as an option for ablation vs PPM with AVN ablation, patient does not want to consider at this time -will have him follow up in [address] [facility] NotePatient here for 6 mo [...] myalgias. All other systems reviewed and are negative.[facility] 04-01-2023 NoteUT Electrophysiology Consult Note Reason [...] history was recently cardioverted by me at [facility] to SR . He states no [...] Hematologic/Lymphatic Hematologic/Lymphatic no swoll (more content not included)...[facility]/ADept. of Dermatology Evaluation noteNo assessment information available [facility] Work Phone: History general Narrative - Reported* Type Description Date Medical History heart disease Medical History melanoma Surgical History melanoma excision Hospitalization History see above [employer] Other reason for referral (narrative)* Name Reason [...] 2023 7:32am Hospital Course Note [id number] Admitted: 09/10/2018 Discharged: 09/14/2018 Date of : 1960 Physician: Primo Glaser MD DISCHARGE SUMMARYDISCHARGE ATTENDING PHYSICIAN: Primo Galser [facility] CARE PHYSICIAN: Dr. Jacobson at [phone].PRINCIPAL DIAGNOSIS: Atrial fibrillation/flutter, status post TEEconversion currently [...] and content) DATE CREATED AUTHOR 10/23/2018 [facility] DATE CREATED AUTHOR AUTHOR'S ORGANIZ ATION 02/27/2023 [facility] DATE CREATED AUTHOR AUTHOR'S ORGANIZ ATION 03/25/2023 [facility] DATE CREATED AUTHOR AUTHOR'S ORGANIZ ATION 10/09/2023 [facility] DATE CREATED AUTHOR AUTHOR'S ORGANIZ ATION 11/18/2023 [facility] DATE CREATED AUTHOR AUTHOR'S ORGANIZ ATION 05/26/2024 [facility] Care Teams (unrecognized sec tion and [...] ed section and content) referred by Dr. Indira sanabria r adiculopathy FOR RECORDS PERTAINING TO PATIENTS [...] BE BASED ON THE PRIMARY CLINICAL RECORDS. [facility] [employer] [facility]. provides no warranty or guarantee of the accuracy or completeness of information in this document.
--- NOTE | 2024-08-31 08:34 | P.CN_ITS ---
Consult Note: HPI Data of Consult Patient: known to practice within the last 3 years Consult date: 05/02/24 Requesting Physician: Shannan Gautam NP Primary Care Provider: Ross Jacobson MD Consult Narrative Reason for consult: low back, bilateral lower extremity pain Narrative: 64yom who presents for evaluation. longstanding low back, bilateral lower extremity pain. worsened in past several months. used to walk long distances, now has significant trouble with ambulation. lumbar mri reviewed, significant for severe stenosis at l2-3, l3-4, l4-5. significant facet arthropathy at multiple lumbar levels. engaged in chiropractic therapy >6 weeks, without relief. uses advil. denies adverse med side effects. on xarelto, should avoid all NSAIDs. Previous bilateral L3-4 TFESI and L4-5 TFESI provided >80% improvement for 3 months. patient noticing over the last few weeks symptoms are returning to baseline. cc:: CC: Shannan Gautam NP Review of Systems ROS Status of ROS 10 or more systems reviewed and unremark able except as noted in history and below Musculoskeletal Reports: back pain PFSH PFSH Medical History (Updated 05/09/24 @ 10:40 by Mouna Del Rio) Melanoma ?C43.9 - Malignant melanoma of skin, unspecified (ICD-10) Low back pain ?M54.50 - Low back pain, unspecified (ICD-10) Sleep apnea ?G47.30 - Sleep apnea, unspecified (ICD-10) Afib ?I48.91 - Unspecified atrial fibrillation (ICD-10) Surgical History H/O knee surgery ?Z98.890 - Other specified postprocedural states (ICD-10) Meds Home Medications and Allergies Home Medications ?Medication ?Instructions ?Recorded ?Confirmed ?Type lisinopril 10 mg tablet mg 05/02/24 History metoprolol tartrate 75 mg tablet mg 05/02/24 History multivitamin 1 tab PO DAILY 05/02/24 05/23/24 History omega 7-dkj-ijd-fish oil 1,000 mg 1 cap PO DAILY 05/02/24 05/23/24 History (120 mg-180 mg) capsule (Fish Oil) rivaroxaban 20 mg tablet (Xarelto) mg 05/02/24 History spironolactone 25 mg tablet mg 05/02/24 History Allergies Allergy/AdvReac Type Severity Reaction Status Date / Time No Known Drug Allergies Allergy Verified 05/23/24 10:14 Exam Narrative Exam Narrative: Psych-alert and oriented x 3. Attentive and appropriate, constitutionally normal, displays normal mood and affect per situation. There are no obvious deficits in memory, reasoning, or intellect.? Skin-no obvious rashes, bruising, erythema noted to the patient's area of pain.? Extremities- extremities are warm with minimal edema and palpable pulses. Lumbar-tenderness to palpation noted in the lumbar spine and paraspinal musculature. Pain is elicited with flexion, extension, and lateral rotation of the lumbar spine. Range of motion is diminished with these motions. Facet loading maneuvers are positive.? Strength-noted to be unremarkable with the exception of decreased strength rated at 4 out of 5 in bilateral quadriceps femoris, anterior tibialis. Sensory-no notable sensory deficits in the bilateral lower extremities to touch or pinprick in all dermatomal distributions with the exception to decreased sensation to the bilateral L2, 3, 4, 5 dermatomal distribution Coordination remains intact.? Gait remains non-antalgic. Results Additional Findings Additional findings: If on a controlled substance or opioids, I have checked an [place] report on this patient and there are no aberrancies noted in the prescribing history.??If on a controlled substance or opioid a drug screen was completed and reviewed within the last year, and if there has not been a drug screen completed we ordered one today to monitor higher risk, state monitored pain medication use. As part of providing excellent, safe, comprehensive care, the following was completed at our patient's visit: 1. A medication reconciliation and review to ensure accurate knowledge of current/active medications, including asking our patients to inform us about any [id number] medications or herbal remedies/nutritional supplements/alternative remedies. 2. A review to specifically ensure our patients have had annual screening for screening for depression, screening for tobacco use, and screening for unhealthy alcohol use. For concerning screenings had a discussion with the patient, provided patient education, and recommended follow-up with primary care provider when appropriate. If patient noted with a risk of falling, they received education on strength, gait, and balance training to prevent future risk of falling. Assessment and Plan Assessment and Plan (1) Lumbar stenosis with neurogenic claudication: Plan repeat bilateral L4-5 TFESI under fluoroscopy, risks vs benefits reviewed defer medication management at this time per pt request f/u 2 weeks after repeat TFESI
== END 2024-08-31 08:10 | disposition home or self-care (01) ==
LOC: PM 08:09
PROVIDERS: PCP Family Medicine; Visit Provider Nurse Practitioner
DX: M48.062 Spinal stenosis, lumbar region with neurogenic claudication (principal)
CPT/HCPCS: G0463

== ENCOUNTER 2024-09-12 08:54 | Day surgery (SDC) | payer OTHER, SELFPAY ==
--- OUTSIDE RECORDS SUMMARY | 2024-09-12 09:13 | XMS_ITS | CCD ---
Author Organization [facility] Care Team Providers Care Digital Artist Name Role Phone PHYSICIAN, DEFAULT Unavailable Unavailable PHYSICIAN, DEFAULT Unavailable Unavailable CHLOÉ, HANI Unavailable Unavailable YURY FUNEZ AM Unavailable Unavailable KACY JACOBSON Unavailable Unavailable RODOLFOPRIMO COLLAZO R Unavailable Unavailable OR Unavailable Unavailable UNKNOWN, PROVIDER Unavailable Unavailable PHYSICIAN, [...] Unavailable MD Sher Whitfield Attending Provider MD Kayc Jacobson Primary Care Provider [phone] Sher Whitfield Unavailable Sher Whitfield Attending [...] Onset: 09-10-2022 Chronic Other aftercare (1 source) [facility] (current) use of anticoagulants; 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: [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) USE OF ANTICOAGULANTS] Onset: 09-10-2018 Episodic [...] Range Facility Office Visiton 11-10-2023 Follow-up visit [id number] Susanna Hogue 1960 M Date Provider Department Center 11/10/2023 RANDY JOHNSTON BRITNEY [facility] Family History Problem Relation Age of Onset Heart attack Maternal Grandfather Family Status - Relation Status Age at Maternal Grandfather Level of Service:85030 OR OFFICE/OUTPATIENT ESTABLISHED LOW MDM 20 MIN Normal [facility] Orders Onlyon 11-10-2023 Orders Only [id number] Susanna Hogue naldo Greenberg 1960 M Date Provider Department Center 11/10/2023 CRISTINO AYALA Jesse Janelle Family History Problem Relation Age of Onset Heart attack Maternal Grandfather Family Status - Relation Status Age at Maternal Grandfather [facility] XR lumbar spine 6V w bending on 10-01-2023 XR lumbar spine 6V w bending [facility] [place] [address] [place] [address] XRay Report Signed Patient: Reece Hogue MR#: [id number] : 1960 Acct:[id number] Age/Sex: 63 / M ADM Date: 10/01/23 Loc: XD Room: Type: [facility] Attending Dr: Sher Whitfield MD Copies [...] Nila Christensen M.D.10/01/2023 12:35 PM Dictation Location: [place] [address] Transcribed By: [facility] 10/01/23 1235 Dictated By: Nila Christensen MD 10/01/23 1226 Signed By: 10/01/23 1235 [facility] Office Visiton 04-01-2023 Follow-up visit [id number] Susanna Hogue naldo Greenberg 1960 M Date Provider Department Center 04/01/2023 1596-KATHE DE DIOS [facility] CARD [facility] Family History Problem Relation Age of Onset Heart attack Maternal Grandfather Family Status - Relation Status Age at Maternal Grandfather Level of Service:74104 OR OFFICE/OUTPATIENT ESTABLISHED MOD MDM 30-39 MIN Reason for Visit and Comments: Atrial Fibrillation [80] Hypertension [672557] Normal [facility] Dermatopathologyon 3 Dermatopathology Name: REECE HOGUEMayank Pathologist: JAIMEE NEGRETE MD Date of Procedure: 02/24/2023 Date Received: 02/24/2023 Date Reported 02/25/2023 Submitting Physician: LUKE REINOSO MD, Location: [facility] Copy To/Referring/Attending: MD KAUR PERDOMO FINAL DIAGNOSIS 4 SLIDES, [facility], #[id number] (BX: 02/03/2023) SKIN, LEFT NASAL SIDEWALL, SHAVE [...] REPORT A. 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 Slide/Block Description 4 SLIDES, [id number]. Keep Slides: N Slides Returned: N Personal Consult: N Normal [facility]3] Comment on above: Performed By: #### D [...] JO RUSSELL Date: 2023-02-18 14:29 Normal [facility] INSULINon 01-23-2023 Insulin 7.9 uIU/mL Normal 2.6-24.9 [facility] Comment on above: Performed By: #### T 7, URIC, TSH, CMP, LIPID #### [facility] [address] [place] [address] Dr. Ayush Sorto CBC AUTO DIFFon 01-22-2023 BASO # 0.0 103/ul Normal 0.0-0.1 [facility] Comment on above: Performed By: #### C BC #### [facility] [address] [place] [address] Dr. Ayush Sorto Basophils/100 WBC (Bld) 0.6 % Normal 0.2-2.0 [facility] Comment on above: Performed By: #### C BC #### [facility] [address] [place] [address] Dr. Ayush Sorto EO # 0.2 103/ul Normal 0.0-0.7 [facility] Comment on above: Performed By: #### C BC #### [facility] [address] [place] [address] Dr. Ayush Sorto Eosinophils/100 WBC (Bld) 2.3 % Normal 0.9-7.0 [facility] Comment on above: Performed By: #### C BC #### [facility] [address] [place] [address] Dr. Ayush Sorto Erythrocyte distribution width (RBC) [Ratio] 13.2 % Normal 11.0-15.0 [facility] Comment on above: Performed By: #### C BC #### [facility] [address] [place] [address] Dr. Ayush Sorto Hematocrit (Bld) [Volume fraction] 48.6 % Normal 42.0-54.0 [facility] Comment on above: Performed By: #### C BC #### [facility] [address] [place] [address] Dr. Ayush Sorto Hemoglobin (Bld) [Mass/Vol] 16.4 g/dL Normal 14.0-18.0 [facility] Comment on above: Performed By: #### C BC #### [facility] [address] [place] [address] Dr. Ayush Sorto IG # 0.02 10e3/ul Normal 0.00-0.03 [facility] Comment on above: Performed By: #### C BC #### [facility] [address] [place] [address] Dr. Ayush Sorto IG % 0.3 % Normal 0.0-0.5 [facility] Comment on above: Performed By: #### C BC #### [facility] [address] [place] [address] Dr. Ayush Sorto LYMPH # 1.6 103/ul Normal 1.2-3.8 [facility] Comment on above: Performed By: #### C BC #### [facility] [address] [place] [address] Dr. Ayush Sorto Lymphocytes/100 WBC (Bld) 24.7 % Normal 20.5-60.0 [facility] Comment on above: Performed By: #### C BC #### [facility] [address] [place] [address] Dr. Ayush Sorto MANUAL DIFF REQ NO Normal [facility] Comment on above: Performed By: #### C BC #### [facility] [address] [place] [address] Dr. Ayush Sorto MCH (RBC) [Entitic mass] 30.0 pg Normal 25.9-34.0 [facility] Comment on above: Performed By: #### C BC #### [facility] [address] [place] [address] Dr. Ayush Sorto MCHC (RBC) [Mass/Vol] 33.7 g/dL Normal 29.9-35.2 [facility] Comment on above: Performed By: #### C BC #### [facility] [address] [place] [address] Dr. Ayush Sorto MCV (RBC) [Entitic vol] 89.0 fL Normal 80.0-94.0 [facility] Comment on above: Performed By: #### C BC #### [facility] [address] [place] [address] Dr. Ayush Sorto MONO # 0.7 103/ul Normal 0.3-0.8 [facility] Comment on above: Performed By: #### C BC #### [facility] [address] [place] [address] Dr. Ayush Sorto Monocytes/100 WBC (Bld) 10.1 % Normal 1.7-12.0 [facility] Comment on above: Performed By: #### C BC #### [facility] [address] [place] [address] Dr. Ayush Sorto NEUT # 4.1 103/ul Normal 1.4-6.5 [facility] Comment on above: Performed By: #### C BC #### [facility] [address] [place] [address] Dr. Ayush Sorto Neutrophils/100 WBC (Bld) 62.0 % Normal 43.0-75.0 [facility] Comment on above: Performed By: #### C BC #### [facility] [address] [place] [address] Dr. Ayush Sorto Platelet mean volume (Bld) [Entitic vol] 8.6 fL Critically low 9.5-13.5 [facility] Comment on above: Performed By: #### C BC #### [facility] [address] [place] [address] Dr. Ayush Sorto PLT 248 103/ul Normal 150-450 [facility] Comment on above: Performed By: #### C BC #### [facility] [address] [place] [address] Dr. Ayush Sorto RBC 5.46 106/ul Normal 4.70-6.10 [facility] Comment on above: Performed By: #### C BC #### [facility] [address] [place] [address] Dr. Ayush Sorto WBC 6.6 103/ul Normal 4.0-11.0 [facility] Comment on above: Performed By: #### C BC #### [facility] [address] [place] [address] Dr. Ayush Sorto FREE THYROXINE INDEX T7on FTI 3.31 Normal 1.30-4.50 [facility] Comment on above: Performed By: #### T 7, URIC, TSH, CMP, LIPID #### [facility] [address] [place] [address] Dr. Ayush Sorto T3U 36.0 % Normal 33.0-40.0 [facility] Comment on above: Performed By: #### T 7, URIC, TSH, CMP, LIPID #### [facility] [address] [place] [address] Dr. Ayush Sorto T4 [Mass/Vol] 9.20 ug/dL Normal 4.50-12.10 [facility] Comment on above: Performed By: #### T 7, URIC, TSH, CMP, LIPID #### [facility] [address] [place] [address] Dr. Ayush Sorto GLYCOHEMOGLOBIN A1Con 2022 ADA RECOMMENDATION SEE BELOW Normal [facility] Comment on above: Result Comment: ADA RECOMMENDED LIMIT 4.0 - 6.0 ADA THERAPEUTIC TARGET < 7.0 ACTION SUGGESTED > 7.0 Performed By: #### T 7, URIC, TSH, CMP, LIPID #### [facility] [address] [place] [address] [address] Ayush Sorto Glucose [Mass/Vol] 117 mg/dL Normal [facility] Comment on above: Performed By: #### T 7, URIC, TSH, CMP, LIPID #### [facility] [address] [address] [address] Ayush Sorto HbA1c (Bld) [Mass fraction] 5.7 % Normal 4.5-6.2 [facility] Comment on above: Performed By: #### T 7, URIC, TSH, CMP, LIPID #### [facility] [address] [address] [address] Ayush Sorto LIPID PROFILEon 01-22-2023 CHOL-HDL RATIO NORM SEE BELOW Normal [facility] Comment on above: Result Comment: 3.3 - 4.4 LOW RISK 4.4 - 7.1 AVERAGE RISK 7.1 - 11.0 MODERATE RISK >11.0 HIGH RISK Performed By: #### T 7, URIC, TSH, CMP, LIPID #### [facility] [address] [address] [address] Ayush Sorto Cholesterol [Mass/Vol] 216 mg/dL Critically high <=200 [facility] Comment on above: Performed By: #### T 7, URIC, TSH, CMP, LIPID #### [facility] [address] [address] [address] Ayush Sorto Cholesterol in HDL [Mass/Vol] 68 mg/dL Critically high 40-60 [facility] Comment on above: Performed By: #### T 7, URIC, TSH, CMP, LIPID #### [facility] [address] [address] [address] Ayush Sorto Cholesterol in LDL [Mass/Vol] 136.6 mg/dL Normal [facility] Comment on above: Performed By: #### T 7, URIC, TSH, CMP, LIPID #### [facility] [address] [address] [address] Ayush Sorto Cholesterol.total/C holesterol in HDL [Mass ratio] 3.2 {ratio} Normal [facility] Comment on above: Performed By: #### T 7, URIC, TSH, CMP, LIPID #### [facility] [address] [address] [address] Ayush Sorto HDL NORMAL > or = 60 mg/dl - LO W CARDIOVASCULAR RISK <40 mg/dl - HIGH CARDIOVASCULAR RISK Normal [facility] Comment on above: Performed By: #### T 7, URIC, TSH, CMP, LIPID #### [facility] [address] [address] [address] Ayush Sorto LDL CALC NORMAL SEE BELOW Normal [facility] Comment on above: Result Comment: <100 mg/dl OPTIMAL 100 - 129 mg/dl NEAR OR ABOVE OPTIMAL 130 - 159 mg/dl BORDERLINE HIGH 160 - 189 mg/dl HIGH >190 mg/dl VERY HIGH Performed By: #### T 7, URIC, TSH, CMP, LIPID #### [facility] [address] [address] [address] Ayush Sorto Triglyceride [Mass/Vol] 57 mg/dL Normal <=150 [facility] Comment on above: Performed By: #### T 7, URIC, TSH, CMP, LIPID #### [facility] [address] [address] [address] Ayush Sorto VLDL CALC 11.4 mg/dL Normal [facility] Comment on above: Performed By: #### T 7, URIC, TSH, CMP, LIPID #### [facility] [address] [address] [address] Ayush Sorto PROF 14(COMP METB)on 023 Albumin [Mass/Vol] 4.0 g/dL Normal 3.4-5.0 [facility] Comment on above: Performed By: #### T 7, URIC, TSH, CMP, LIPID #### [facility] [address] [address] [address] Ayush Sorto Albumin/Globulin [Mass ratio] 1.2 {ratio} Normal [facility] Comment on above: Performed By: #### T 7, URIC, TSH, CMP, LIPID #### [facility] [address] [address] [address] Ayush Sorto ALP [Catalytic activity/Vol] 85 U/L Normal 46-116 [facility] Comment on above: Performed By: #### T 7, URIC, TSH, CMP, LIPID #### [facility] [address] [place] [address] Dr. Ayush Sorto ALT [Catalytic activity/Vol] 28 U/L Normal 16-63 [facility] Comment on above: Performed By: #### T 7, URIC, TSH, CMP, LIPID #### [facility] [address] [place] [address] Dr. Ayush Sorto Anion gap [Moles/Vol] 12.9 mmol/L Normal [facility] Comment on above: Performed By: #### T 7, URIC, TSH, CMP, LIPID #### [facility] [address] [place] [address] Dr. Ayush Sorto AST [Catalytic activity/Vol] 23 U/L Normal 15-37 [facility] Comment on above: Performed By: #### T 7, URIC, TSH, CMP, LIPID #### [facility] [address] [place] [address] Dr. Ayush Sorto Bilirubin [Mass/Vol] 1.1 mg/dL Critically high 0.2-1.0 [facility] Comment on above: Performed By: #### T 7, URIC, TSH, CMP, LIPID #### [facility] [address] [place] [address] Dr. Ayush Sorto Calcium [Mass/Vol] 9.2 mg/dL Normal 8.5-10.1 [facility] Comment on above: Performed By: #### T 7, URIC, TSH, CMP, LIPID #### [facility] [address] [place] [address] Dr. Ayush Sorto Chloride [Moles/Vol] 103 mmol/L Normal 98-107 [facility] Comment on above: Performed By: #### T 7, URIC, TSH, CMP, LIPID #### [facility] [address] [place] [address] Dr. Ayush Sorto CO2 [Moles/Vol] 27.9 mmol/L Normal 21.0-32.0 [facility] Comment on above: Performed By: #### T 7, URIC, TSH, CMP, LIPID #### [facility] [address] [address] [address] Ayush Sorto Creatinine [Mass/Vol] 0.88 mg/dL Normal 0.70-1.30 [facility] Comment on above: Performed By: #### T 7, URIC, TSH, CMP, LIPID #### [facility] [address] [place] [address] Dr. Ayush Sorto EGFR-AF [place] >60 Normal >=60 [facility] Comment on above: Performed By: #### T 7, URIC, TSH, CMP, LIPID #### [facility] [address] [place] [address] Dr. Ayush Sorto EGFR-NON AF [place] >60 Normal >=60 [facility] Comment on above: Performed By: #### T 7, URIC, TSH, CMP, LIPID #### [facility] [address] [place] [address] Dr. Ayush Sorto Globulin (S) [Mass/Vol] 3.4 g/dL Normal [facility] Comment on above: Performed By: #### T 7, URIC, TSH, CMP, LIPID #### [facility] [address] [place] [address] Dr. Ayush Sorto Glucose [Mass/Vol] 93 mg/dL Normal 74-106 [facility] Comment on above: Performed By: #### T 7, URIC, TSH, CMP, LIPID #### [facility] [address] [place] [address] Dr. Ayush Sorto Potassium [Moles/Vol] 4.8 mmol/L Normal 3.5-5.1 [facility] Comment on above: Performed By: #### T 7, URIC, TSH, CMP, LIPID #### [facility] [address] [place] [address] Dr. Ayush Sorto Protein [Mass/Vol] 7.4 g/dL Normal 6.4-8.2 [facility] Comment on above: Performed By: #### T 7, URIC, TSH, CMP, LIPID #### [facility] [address] [place] [address] Dr. Ayush Sorto Sodium [Moles/Vol] 139 mmol/L Normal 136-145 [facility] Comment on above: Performed By: #### T 7, URIC, TSH, CMP, LIPID #### [facility] [address] [place] [address] Dr. Ayush Sorto Urea nitrogen [Mass/Vol] 23.0 mg/dL Critically high 7.0-18.0 [facility] Comment on above: Performed By: #### T 7, URIC, TSH, CMP, LIPID #### [facility] [address] [place] [address] Dr. Ayush Sorto Urea nitrogen/Creatinine [Mass ratio] 26.1 mg/mg Normal [facility] Comment on above: Performed By: #### T 7, URIC, TSH, CMP, LIPID #### [facility] [address] [place] [address] Dr. Ayush Sorto TSHon 01-22-2023 TSH 1.145 uIU/mL Normal 0.358-3.74 0 [facility] Comment on above: Performed By: #### T 7, URIC, TSH, CMP, LIPID #### [facility] [address] [place] [address] Dr. Ayush Sorto URIC ACID SERUMon 01-22-2023 Urate [Mass/Vol] 6.8 mg/dL Normal 3.5-7.2 [facility] Comment on above: Performed By: #### T 7, URIC, TSH, CMP, LIPID #### [facility] [address] [place] [address] Dr. Ayush Sorto VITAMIN D 25 OHon 01-22-2023 VIT D 25-OH 72.7 ng/mL Normal [facility] Comment on above: Performed By: #### V ITAD, PSASC #### [facility] [address] [place] [address] Dr. Ayush Sorto VIT D RANGES SEE BELOW Normal [facility] Comment on above: Result Comment: <20 ng/mL Vit D deficient 20 - <30 ng/mL Vit D insufficient 30 - 100 ng/mL Vit D sufficient >100 ng/mL Potential Toxicity Performed By: #### V ITAD, PSASC #### [facility] [address] [place] [address] Dr. Ayush Sotro PROF CHEM 8 (BAS METB)on Anion gap [Moles/Vol] 10.1 mmol/L Normal [facility] Comment on above: Performed By: #### T 7, URIC, TSH, CMP, LIPID #### [facility] [address] [place] [address] Dr. Ayush Sorto Calcium [Mass/Vol] 9.3 mg/dL Normal 8.5-10.1 [facility] Comment on above: Performed By: #### T 7, URIC, TSH, CMP, LIPID #### [facility] [address] [place] [address] Dr. Ayush Sorto Chloride [Moles/Vol] 102 mmol/L Normal 98-107 [facility] Comment on above: Performed By: #### T 7, URIC, TSH, CMP, LIPID #### [facility] [address] [place] [address] Dr. Ayush Sorto CO2 [Moles/Vol] 31.8 mmol/L Normal 21.0-32.0 [facility] Comment on above: Performed By: #### T 7, URIC, TSH, CMP, LIPID #### [facility] [address] [place] [address] Dr. Ayush Sorto Creatinine [Mass/Vol] 1.03 mg/dL Normal 0.70-1.30 [facility] Comment on above: Performed By: #### T 7, URIC, TSH, CMP, LIPID #### [facility] [address] [place] [address] Dr. Ayush Sorto EGFR-AF [place] >60 Normal >=60 [facility] Comment on above: Performed By: #### T 7, URIC, TSH, CMP, LIPID #### [facility] [address] [place] [address] Dr. Ayush Sorto EGFR-NON AF [place] >60 Normal >=60 [facility] Comment on above: Performed By: #### T 7, URIC, TSH, CMP, LIPID #### [facility] [address] [place] [address] Dr. Ayush Sorto Glucose [Mass/Vol] 121 mg/dL Critically high 74-106 [facility] Comment on above: Performed By: #### T 7, URIC, TSH, CMP, LIPID #### [facility] [address] [address] [address] Ayush Sorto Potassium [Moles/Vol] 4.9 mmol/L Normal 3.5-5.1 [facility] Comment on above: Performed By: #### T 7, URIC, TSH, CMP, LIPID #### [facility] [address] [address] [address] Ayush Sorto Sodium [Moles/Vol] 139 mmol/L Normal 136-145 [facility] Comment on above: Performed By: #### T 7, URIC, TSH, CMP, LIPID #### [facility] [address] [place] [address] Dr. Ayush Sorto Urea nitrogen [Mass/Vol] 15.0 mg/dL Normal 7.0-18.0 [facility] Comment on above: Performed By: #### T 7, URIC, TSH, CMP, LIPID #### [facility] [address] [place] [address] Dr. Ayush Sorto Urea nitrogen/Creatinine [Mass ratio] 14.6 mg/mg Normal [facility] Comment on above: Performed By: #### T 7, URIC, TSH, CMP, LIPID #### [facility] [address] [place] [address] Dr. Ayush Sorto ECHOCARDIO M/2D COMPLETEon 1 11-24-2021 ECHOCARDIO M/2D COMPLETE Patient: REECE HOGUE Exam Date: 09/24/2022 : 1960 Gender:M Ordering : [facility] Admission #: [id number] Family : DR KACY JACOBSON . Order #: [id number] CLICK HERE TO VIEW EXAM ECHOCARDIOGRAM REPORT [...] M.D. on 09/24/2022 at 16:24 Normal [facility] CBC AUTO DIFFon 09-10-2022 BASO # 0.1 103/ul Normal 0.0-0.1 [facility] Comment on above: Performed By: #### C BC #### [facility] [address] [address] [address] Ayush Sorto Basophils/100 WBC (Bld) 0.8 % Normal 0.2-2.0 [facility] Comment on above: Performed By: #### C BC #### [facility] [address] [address] [address] Ayush Sorto EO # 0.1 103/ul Normal 0.0-0.7 [facility] Comment on above: Performed By: #### C BC #### [facility] [address] [place] [address] Dr. Ayush Sorto Eosinophils/100 WBC (Bld) 1.3 % Normal 0.9-7.0 [facility] Comment on above: Performed By: #### C BC #### [facility] [address] [place] [address] Dr. Ayush Sorto Erythrocyte distribution width (RBC) [Ratio] 12.8 % Normal 11.0-15.0 [facility] Comment on above: Performed By: #### C BC #### [facility] [address] [place] [address] Dr. Ayush Sorto Hematocrit (Bld) [Volume fraction] 48.5 % Normal 42.0-54.0 [facility] Comment on above: Performed By: #### C BC #### [facility] [address] [place] [address] Dr. Ayush Sorto Hemoglobin (Bld) [Mass/Vol] 16.2 g/dL Normal 14.0-18.0 [facility] Comment on above: Performed By: #### C BC #### [facility] [address] [place] [address] Dr. Ayush Sorto IG # 0.01 10e3/ul Normal 0.00-0.03 [facility] Comment on above: Performed By: #### C BC #### [facility] [address] [place] [address] Dr. Ayush Sorto IG % 0.2 % Normal 0.0-0.5 [facility] Comment on above: Performed By: #### C BC #### [facility] [address] [place] [address] Dr. Ayush Sorto LYMPH # 1.0 103/ul Critically low 1.2-3.8 [facility] Comment on above: Performed By: #### C BC #### [facility] [address] [place] [address] Dr. Ayush Sorto Lymphocytes/100 WBC (Bld) 15.6 % Critically low 20.5-60.0 [facility] Comment on above: Performed By: #### C BC #### [facility] [address] [place] [address] Dr. Ayush Sorto MANUAL DIFF REQ NO Normal [facility] Comment on above: Performed By: #### C BC #### [facility] [address] [place] [address] Dr. Ayush Sorto MCH (RBC) [Entitic mass] 30.5 pg Normal 25.9-34.0 [facility] Comment on above: Performed By: #### C BC #### [facility] [address] [place] [address] Dr. Ayush Sorto MCHC (RBC) [Mass/Vol] 33.4 g/dL Normal 29.9-35.2 [facility] Comment on above: Performed By: #### C BC #### [facility] [address] [place] [address] Dr. Ayush Sorto MCV (RBC) [Entitic vol] 91.3 fL Normal 80.0-94.0 [facility] Comment on above: Performed By: #### C BC #### [facility] [address] [place] [address] Dr. Ayush Sorto MONO # 0.6 103/ul Normal 0.3-0.8 [facility] Comment on above: Performed By: #### C BC #### [facility] [address] [place] [address] Dr. Ayush Sorto Monocytes/100 WBC (Bld) 9.2 % Normal 1.7-12.0 [facility] Comment on above: Performed By: #### C BC #### [facility] [address] [place] [address] Dr. Ayush Sorto NEUT # 4.5 103/ul Normal 1.4-6.5 [facility] Comment on above: Performed By: #### C BC #### [facility] [address] [place] [address] Dr. Ayush Sorto Neutrophils/100 WBC (Bld) 72.9 % Normal 43.0-75.0 [facility] Comment on above: Performed By: #### C BC #### [facility] [address] [address] [address] Ayush Sorto Platelet mean volume (Bld) [Entitic vol] 8.9 fL Critically low 9.5-13.5 [facility] Comment on above: Performed By: #### C BC #### [facility] [address] [address] [address] Ayush Sorto PLT 226 103/ul Normal 150-450 [facility] Comment on above: Performed By: #### C BC #### [facility] [address] [address] [address] Ayush Sorto RBC 5.31 106/ul Normal 4.70-6.10 [facility] Comment on above: Performed By: #### C BC #### [facility] [address] [place] [address] Dr. Ayush Sorto WBC 6.2 103/ul Normal 4.0-11.0 [facility] Comment on above: Performed By: #### C BC #### [facility] [address] [place] [address] Dr. Ayush Sorto LIPID PROFILEon 09-10-2022 CHOL-HDL RATIO NORM SEE BELOW Normal [facility] Comment on above: Result Comment: 3.3 - 4.4 LOW RISK 4.4 - 7.1 AVERAGE RISK 7.1 - 11.0 MODERATE RISK >11.0 HIGH RISK Performed By: #### T 7, URIC, TSH, CMP, LIPID #### [facility] [address] [place] [address] Dr. Ayush Sorto Cholesterol [Mass/Vol] 206 mg/dL Critically high <=200 [facility] Comment on above: Performed By: #### T 7, URIC, TSH, CMP, LIPID #### [facility] [address] [place] [address] Dr. Ayush Sorto Cholesterol in HDL [Mass/Vol] 73 mg/dL Critically high 40-60 [facility] Comment on above: Performed By: #### T 7, URIC, TSH, CMP, LIPID #### [facility] [address] [place] [address] Dr. Ayush Sorto Cholesterol in LDL [Mass/Vol] 123.2 mg/dL Normal [facility] Comment on above: Performed By: #### T 7, URIC, TSH, CMP, LIPID #### [facility] [address] [place] [address] Dr. Ayush Sorto Cholesterol.total/C holesterol in HDL [Mass ratio] 2.8 {ratio} Normal [facility] Comment on above: Performed By: #### T 7, URIC, TSH, CMP, LIPID #### [facility] [address] [place] [address] Dr. yAush Sorto HDL NORMAL > or = 60 mg/dl - LO W CARDIOVASCULAR RISK <40 mg/dl - HIGH CARDIOVASCULAR RISK Normal [facility] Comment on above: Performed By: #### T 7, URIC, TSH, CMP, LIPID #### [facility] [address] [place] [address] Dr. Ayush Sorto LDL CALC NORMAL SEE BELOW Normal [facility] Comment on above: Result Comment: <100 mg/dl OPTIMAL 100 - 129 mg/dl NEAR OR ABOVE OPTIMAL 130 - 159 mg/dl BORDERLINE HIGH 160 - 189 mg/dl HIGH >190 mg/dl VERY HIGH Performed By: #### T 7, URIC, TSH, CMP, LIPID #### [facility] [address] [place] [address] Dr. Ayush Sorto Triglyceride [Mass/Vol] 49 mg/dL Normal <=150 [facility] Comment on above: Performed By: #### T 7, URIC, TSH, CMP, LIPID #### [facility] [address] [place] [address] Dr. Ayush Sorto VLDL CALC 9.8 mg/dL Normal [facility] Comment on above: Performed By: #### T 7, URIC, TSH, CMP, LIPID #### [facility] [address] [place] [address] Dr. Ayush Sorto PROF 14(COMP METB)on 022 Albumin [Mass/Vol] 4.0 g/dL Normal 3.4-5.0 [facility] Comment on above: Performed By: #### T 7, URIC, TSH, CMP, LIPID #### [facility] [address] [address] [address] Ayush Sorto Albumin/Globulin [Mass ratio] 1.2 {ratio} Normal [facility] Comment on above: Performed By: #### T 7, URIC, TSH, CMP, LIPID #### [facility] [address] [address] [address] Ayush Sorto ALP [Catalytic activity/Vol] 83 U/L Normal 46-116 [facility] Comment on above: Performed By: #### T 7, URIC, TSH, CMP, LIPID #### [facility] [address] [address] [address] Ayush Sorto ALT [Catalytic activity/Vol] 35 U/L Normal 16-63 [facility] Comment on above: Performed By: #### T 7, URIC, TSH, CMP, LIPID #### [facility] [address] [place] [address] Dr. Ayush Sorto Anion gap [Moles/Vol] 9.0 mmol/L Normal [facility] Comment on above: Performed By: #### T 7, URIC, TSH, CMP, LIPID #### [facility] [address] [address] [address] Ayush Sorto AST [Catalytic activity/Vol] 26 U/L Normal 15-37 [facility] Comment on above: Performed By: #### T 7, URIC, TSH, CMP, LIPID #### [facility] [address] [address] [address] Ayush Sorto Bilirubin [Mass/Vol] 1.0 mg/dL Normal 0.2-1.0 [facility] Comment on above: Performed By: #### T 7, URIC, TSH, CMP, LIPID #### [facility] [address] [address] [address] Ayush Sorto Calcium [Mass/Vol] 9.5 mg/dL Normal 8.5-10.1 [facility] Comment on above: Performed By: #### T 7, URIC, TSH, CMP, LIPID #### [facility] [address] [address] [address] Ayush Sorto Chloride [Moles/Vol] 105 mmol/L Normal 98-107 [facility] Comment on above: Performed By: #### T 7, URIC, TSH, CMP, LIPID #### [facility] [address] [place] [address] Dr. Ayush Sorto CO2 [Moles/Vol] 27.7 mmol/L Normal 21.0-32.0 [facility] Comment on above: Performed By: #### T 7, URIC, TSH, CMP, LIPID #### [facility] [address] [address] [address] Ayush Sorto Creatinine [Mass/Vol] 0.90 mg/dL Normal 0.70-1.30 [facility] Comment on above: Performed By: #### T 7, URIC, TSH, CMP, LIPID #### [facility] [address] [place] [address] Dr. Ayush Sorto EGFR-AF [place] >60 Normal >=60 [facility] Comment on above: Performed By: #### T 7, URIC, TSH, CMP, LIPID #### [facility] [address] [place] [address] Dr. Ayush Sorto EGFR-NON AF [place] >60 Normal >=60 [facility] Comment on above: Performed By: #### T 7, URIC, TSH, CMP, LIPID #### [facility] [address] [place] [address] Dr. Ayush Sorto Globulin (S) [Mass/Vol] 3.3 g/dL Normal [facility] Comment on above: Performed By: #### T 7, URIC, TSH, CMP, LIPID #### [facility] [address] [place] [address] Dr. Ayush Sorto Glucose [Mass/Vol] 105 mg/dL Normal 74-106 [facility] Comment on above: Performed By: #### T 7, URIC, TSH, CMP, LIPID #### [facility] [address] [place] [address] Dr. Ayush Sorto Potassium [Moles/Vol] 4.7 mmol/L Normal 3.5-5.1 [facility] Comment on above: Performed By: #### T 7, URIC, TSH, CMP, LIPID #### [facility] [address] [address] [address] Ayush Sorto Protein [Mass/Vol] 7.3 g/dL Normal 6.4-8.2 [facility] Comment on above: Performed By: #### T 7, URIC, TSH, CMP, LIPID #### [facility] [address] [address] [address] Ayush Sorto Sodium [Moles/Vol] 137 mmol/L Normal 136-145 [facility] Comment on above: Performed By: #### T 7, URIC, TSH, CMP, LIPID #### [facility] [address] [address] [address] Ayush Sorto Urea nitrogen [Mass/Vol] 19.0 mg/dL Critically high 7.0-18.0 [facility] Comment on above: Performed By: #### T 7, URIC, TSH, CMP, LIPID #### [facility] [address] [address] [address] Ayush Sorto Urea nitrogen/Creatinine [Mass ratio] 21.1 mg/mg Normal [facility] Comment on above: Performed By: #### T 7, URIC, TSH, CMP, LIPID #### [facility] [address] [address] [address] Ayush Sorto BASIC METABOLIC PANELon 10-2 Calcium mass conc 9.3 mg/dL Normal 8.6-10.3 [facility] Comment on above: Order Comment: No: D o not add to previous draw Performed By: #### 0 0121, 76462, 07433 ####[facility] [facility] [place] [address], [place] Chloride molar conc 102 mmol/L Normal 98-107 [facility] Comment on above: Order Comment: No: D o not add to previous draw Performed By: #### 0 0121, 17022, 81438 ####[facility] [place] [address], [place] CO2 molar conc 27 mmol/L Normal 21-31 [facility] Comment on above: Order Comment: No: D o not add to previous draw Performed By: #### 0 0121, 69728, 45622 ####[facility] [facility] [place] [address], [facility] Creatinine mass conc 0.73 mg/dL Normal 0.70-1.30 [facility] Comment on above: Order Comment: No: D o not add to previous draw Performed By: #### 0 0121, 90187, 62384 ####[facility] [facility] [place] [place] [address], [facility] GFR/1.73 sq M predicted among blacks MDRD vol rate/area (S/P/Bld) mL/min/{1.73_m2} Normal >60 [facility] Comment on above: Order Comment: No: D o not add to previous draw Performed By: #### 0 0121, 78854, 37676 ####[facility] [facility] [place] [place] [address], [facility] GFR/1.73 sq M predicted among non-blacks MDRD vol rate/area (S/P/Bld) mL/min/{1.73_m2} Normal >60 [facility] Comment on above: Order Comment: No: D o not add to previous draw Performed By: #### 0 0121, 43432, 75488 ####[address] [facility] [place] [place] [address], [facility] Glucose mass conc 109 mg/dL High 70-100 [facility] Comment on above: Order Comment: No: D o not add to previous draw Performed By: #### 0 0121, 18197, 26477 ####[address] [facility] [place] [place] [address], [facility] Potassium molar conc 4.1 mmol/L Normal 3.5-5.1 [facility] Comment on above: Order Comment: No: D o not add to previous draw Performed By: #### 0 0121, 94300, 35795 ####[facility] Sodium molar conc 136 mmol/L Normal 136-145 [facility] Comment on above: Order Comment: No: D o not add to previous draw Performed By: #### 0 0121, 76495, 46516 ####[facility] Urea nitrogen mass conc 10 mg/dL Normal 7-25 [facility] Comment on above: Order Comment: No: D o not add to previous draw Performed By: #### 0 0121, 96397, 24205 ####[facility] [facility] CBC COMPLETE BLOOD COUNTon Erythrocyte distribution width Auto Ratio (RBC) 12.8 % Normal 11.5-15.0 [facility] Comment on above: Order Comment: No: D o not add to previous draw Performed By: #### 0 0121, 48520, 14621 ####[facility] [facility] Hematocrit Auto Volume Fraction (Bld) 45.7 % Normal 39.0-50.0 [facility] Comment on above: Order Comment: No: D o not add to previous draw Performed By: #### 0 0121, 87390, 97750 ####[facility] [place] [address], [facility] Hemoglobin mass conc (Bld) 15.6 g/dL Normal 13.0-17.0 [facility] Comment on above: Order Comment: No: D o not add to previous draw Performed By: #### 0 0121, 50301, 87448 ####[facility] [place] [address], [facility] MCH Auto Entitic mass (RBC) 30.4 pg Normal 27.0-33.0 [facility] Comment on above: Order Comment: No: D o not add to previous draw Performed By: #### 0 0121, 26719, 68602 ####[facility] [facility].[address] MCHC Auto mass conc (RBC) 34.1 g/dL Normal 32.0-35.0 [facility] Comment on above: Order Comment: No: D o not add to previous draw Performed By: #### 0 0121, 56839, 81052 ####[facility] [facility].[address] MCV Auto Entitic volume (RBC) 89.1 fL Normal 82.0-98.0 [facility] Comment on above: Order Comment: No: D o not add to previous draw Performed By: #### 0 0121, 17764, 02266 ####[address] [facility].[address] Nucleated RBC/100 WBC Ratio (Bld) 0 % Normal 0-0 [facility] Comment on above: Order Comment: No: D o not add to previous draw Performed By: #### 0 0121, 65888, 92835 ####[facility] [facility].[address] PLAT CNT 218 10*3/uL Normal 150-400 [facility] Comment on above: Order Comment: No: D o not add to previous draw Performed By: #### 0 0121, 38729, 63665 ####[facility] [facility].[address] RBC Auto #/vol (Bld) 5.13 10*6/uL Normal 4.20-5.70 [facility] Comment on above: Order Comment: No: D o not add to previous draw Performed By: #### 0 0121, 72995, 75410 ####[facility] [facility].[address] WBC Auto #/vol (Bld) 6.96 10*3/uL Normal 4.00-10.60 [facility] Comment on above: Order Comment: No: D o not add to previous draw Performed By: #### 0 0121, 73348, 44078 ####[facility] Cardiovascular Lab Reporton 09-14-2018 Cardiovascular Lab Report [facility] #: [id number] Physician: Lizette Montano M.D.Medicine Service Date: 09/13/2018Division of Birthdate: 1960Cardiology Room #: 3CD [id number] CardiovascularServicesUniversi [facility] University HospitalLnizttsZplsie[address], [place] [address]Bcwls Fax Cardiovascular Laboratory ReportPROCEDURE: Transesophageal echocardiogram and cardioversion.INDICATION: Atrial fibrillation.FELLOW: Tanya Botello M.D.PROCEDURE IN DETAIL: An informed consent was obtained from the patientafter explaining indications, risks, and benefits, and alternatives. Thepatient understood and agreed and signed the consent form. The patient wasbrought to the nitriles lab technician and MOJGAN was performed under conscious sedation. Thepatient obtained a total of 10 mg of Versed and 100 mcg of fentanyl duringthe procedure. The transesophageal echocardiogram did not show anythrombus in the left atrial appendage. Full MOJGAN [facility] is [facility]. After the transesophageal echocardiogram, synchronized biphasiccardioversion was done with 300 joules of energy. The patient successfullyconverted to sinus rhythm as evidenced by the EKG done postprocedure. Nocomplications throughout the procedure.Electronically Signed by:Lizette Haines M.D. 09/19/2018 08:34 P Lizette Haines M.D. I was present for the entire procedure. Date Dict: 09/13/2018/11:49 A/Al Brownlee Trans: 09/14/2018 06:55 A/Marguerite_JN:[id number]: Kacy Jacobson M.D. [id number] [facility] [place] [address] Yury Funez M.D. [address] [place] [address] [place], [place] [id number] Normal [facility] APTTon 09-13-2018 aPTT Coag time (Bld) 86.4 s Critically high 25.0-35.0 [facility] Comment on above: Order Comment: No: D [...] PRESENCEOF HEPARIN. Performed By: #### 0 0121, 43475, 84559 ####[facility] [facility].[address] aPTT Coag time (Bld) 41.4 s High 25.0-35.0 [facility] Comment on above: Result Comment: ALL RESULTS [...] THIS PURPOSE. Performed By: #### 0 0121, 10489, 66888 ####[facility] UFH HEPARIN ASSAYon 09-13-20 18 UNFRACTIONATED HEPARIN 0.64 IU/mL Normal 0.30-0.70 [facility] Comment on above: Result Comment: Somers roxaban and Apixaban will interfere with the anti Xa assay used tomonitor UFH and LMWH. Performed By: #### 0 0121, 19681, 02139 ####[facility] [place] [address], [facility] UNFRACTIONATED HEPARIN 0.25 IU/mL Low 0.30-0.70 [facility] Comment on above: Result Comment: Somers roxaban and Apixaban will interfere with the anti Xa assay used tomonitor UFH and LMWH. Performed By: #### 0 0121, 13485, 77864 ####[facility] [place] [address], [facility] BASIC METABOLIC PANELon 10-2 Calcium mass conc 8.6 mg/dL Normal 8.6-10.3 [facility] Comment on above: Order Comment: No: D o not add to previous draw Performed By: #### 0 0121, 09327, 92725 ####[facility] [place] [address], [facility] Chloride molar conc 106 mmol/L Normal 98-107 [facility] Comment on above: Order Comment: No: D o not add to previous draw Performed By: #### 0 0121, 30467, 71095 ####[facility] [place] [address], [facility] CO2 molar conc 25 mmol/L Normal 21-31 [facility] Comment on above: Order Comment: No: D o not add to previous draw Performed By: #### 0 0121, 72586, 55981 ####[facility] [place] [address], [facility] Creatinine mass conc 0.64 mg/dL Low 0.70-1.30 [facility] Comment on above: Order Comment: No: D o not add to previous draw Performed By: #### 0 0121, 10959, 83989 ####[facility] [place] [address], [facility] GFR/1.73 sq M predicted among blacks MDRD vol rate/area (S/P/Bld) mL/min/{1.73_m2} Normal >60 [facility] Comment on above: Order Comment: No: D o not add to previous draw Performed By: #### 0 0121, 43402, 59320 ####[facility] [address], [facility] GFR/1.73 sq M predicted among non-blacks MDRD vol rate/area (S/P/Bld) mL/min/{1.73_m2} Normal >60 [facility] Comment on above: Order Comment: No: D o not add to previous draw Performed By: #### 0 0121, 79214, 57418 ####[facility] [place] [address], [facility] Glucose mass conc 100 mg/dL Normal 70-100 [facility] Comment on above: Order Comment: No: D o not add to previous draw Performed By: #### 0 0121, 74194, 42947 ####[facility] [address], [facility] Potassium molar conc 4.0 mmol/L Normal 3.5-5.1 [facility] Comment on above: Order Comment: No: D o not add to previous draw Performed By: #### 0 0121, 35744, 75589 ####[facility] [address], [facility] Sodium molar conc 137 mmol/L Normal 136-145 [facility] Comment on above: Order Comment: No: D o not add to previous draw Performed By: #### 0 0121, 91245, 66190 ####[facility] [address], [facility] Urea nitrogen mass conc 14 mg/dL Normal 7-25 [facility] Comment on above: Order Comment: No: D o not add to previous draw Performed By: #### 0 0121, 07367, 81001 ####[facility] [facility].[address] CBC W/DIFFon 09-12-2018 ABS BASOPHILS 0.0 10*3/uL Normal 0.0-0.2 [facility] Comment on above: Order Comment: No: D o not add to previous draw Performed By: #### 0 0121, 44016, 87939 ####[facility] [facility] [place] [address], [facility] ABS IMM GRANS 0.0 10*3/uL Normal 0.0-0.2 [facility] Comment on above: Order Comment: No: D o not add to previous draw Performed By: #### 0 0121, 14675, 25588 ####[facility] [facility].[address] ABS NEUTROPHILS 3.1 10*3/uL Normal 1.6-7.6 [facility] Comment on above: Order Comment: No: D o not add to previous draw Performed By: #### 0 0121, 75001, 69737 ####[facility] [facility].[address] Basophils Auto #/vol (Bld) 0.7 % Normal 0.0-1.0 [facility] Comment on above: Order Comment: No: D o not add to previous draw Performed By: #### 0 0121, 73418, 61385 ####[facility] [facility] [place] [place] [address], [facility] Eosinophils Auto #/vol (Bld) 0.2 10*3/uL Normal 0.0-0.5 [facility] Comment on above: Order Comment: No: D o not add to previous draw Performed By: #### 0 0121, 34607, 99067 ####[place] [address], [facility] Eosinophils/100 WBC Auto (Bld) 3.6 % Normal 0.0-6.0 [facility] Comment on above: Order Comment: No: D o not add to previous draw Performed By: #### 0 0121, 40273, 77337 ####[facility] Erythrocyte distribution width Auto Ratio (RBC) 12.7 % Normal 11.5-15.0 [facility] Comment on above: Order Comment: No: D o not add to previous draw Performed By: #### 0 0121, 17405, 59312 ####[facility] Hematocrit Auto Volume Fraction (Bld) 45.5 % Normal 39.0-50.0 [facility] Comment on above: Order Comment: No: D o not add to previous draw Performed By: #### 0 0121, 77769, 38120 ####[facility] Hemoglobin mass conc (Bld) 15.2 g/dL Normal 13.0-17.0 [facility] Comment on above: Order Comment: No: D o not add to previous draw Performed By: #### 0 0121, 84899, 99610 ####[facility] IMMATURE GRANS 0.4 % Normal 0.0-1.0 [facility] Comment on above: Order Comment: No: D o not add to previous draw Performed By: #### 0 0121, 97383, 59938 ####[facility] Lymphocytes Auto #/vol (Bld) 1.5 10*3/uL Normal 1.2-4.0 [facility] Comment on above: Order Comment: No: D o not add to previous draw Performed By: #### 0 0121, 75543, 08255 ####[facility] Lymphocytes/100 WBC Auto (Bld) 27.8 % Normal 20.0-45.0 [facility] Comment on above: Order Comment: No: D o not add to previous draw Performed By: #### 0 0121, 45312, 44249 ####[facility] MCH Auto Entitic mass (RBC) 30.0 pg Normal 27.0-33.0 [facility] Comment on above: Order Comment: No: D o not add to previous draw Performed By: #### 0 0121, 24963, 03272 ####[facility] MCHC Auto mass conc (RBC) 33.4 g/dL Normal 32.0-35.0 [facility] Comment on above: Order Comment: No: D o not add to previous draw Performed By: #### 0 0121, 34231, 05840 ####[facility] MCV Auto Entitic volume (RBC) 89.9 fL Normal 82.0-98.0 [facility] Comment on above: Order Comment: No: D o not add to previous draw Performed By: #### 0 0121, 08983, 04222 ####[facility] Monocytes Auto #/vol (Bld) 0.6 10*3/uL Normal 0.1-1.0 [facility] Comment on above: Order Comment: No: D o not add to previous draw Performed By: #### 0 0121, 85667, 12051 ####[facility] MONOS 11.4 % Normal 5.0-12.0 [facility] Comment on above: Order Comment: No: D o not add to previous draw Performed By: #### 0 0121, 03505, 33457 ####[facility] [address], [facility] Neutrophils/100 WBC Auto (Bld) 56.1 % Normal 40.0-72.0 [facility] Comment on above: Order Comment: No: D o not add to previous draw Performed By: #### 0 0121, 62815, 40206 ####[facility] Nucleated RBC/100 WBC Ratio (Bld) 0 % Normal 0-0 [facility] Comment on above: Order Comment: No: D o not add to previous draw Performed By: #### 0 0121, 83975, 65163 ####[facility] [facility].[address] PLAT CNT 188 10*3/uL Normal 150-400 [facility] Comment on above: Order Comment: No: D o not add to previous draw Performed By: #### 0 0121, 12983, 28984 ####[facility] [facility].[address] RBC Auto #/vol (Bld) 5.06 10*6/uL Normal 4.20-5.70 [facility] Comment on above: Order Comment: No: D o not add to previous draw Performed By: #### 0 0121, 70253, 74960 ####[facility] [facility] [place] [address], [facility] WBC Auto #/vol (Bld) 5.54 10*3/uL Normal 4.00-10.60 [facility] Comment on above: Order Comment: No: D o not add to previous draw Performed By: #### 0 0121, 60582, 99307 ####[facility] [place] [address], [facility] MAGNESIUM BLOODon 09-12-2018 Magnesium mass conc 1.9 mg/dL Normal 1.9-2.7 [facility] Comment on above: Order Comment: No: D o not add to previous draw Performed By: #### 0 0121, 65730, 99262 ####[facility] [facility].[address] UFH HEPARIN ASSAYon 09-12-20 UNFRACTIONATED HEPARIN 0.26 IU/mL Low 0.30-0.70 [facility] Comment on above: Result Comment: Somers roxaban and Apixaban will interfere with the anti Xa assay used tomonitor UFH and LMWH. Performed By: #### 0 0121, 33514, 54046 ####[facility] [facility].[address] UNFRACTIONATED HEPARIN 0.72 IU/mL High 0.30-0.70 [facility] Comment on above: Result Comment: Lisa roxaban and Apixaban will interfere with the anti Xa assay used tomonitor UFH and LMWH. Performed By: #### 0 0121, 32853, 33746 ####[facility] [facility].[address] UNFRACTIONATED HEPARIN 0.49 IU/mL Normal 0.30-0.70 [facility] Comment on above: Result Comment: Somers roxaban and Apixaban will interfere with the anti Xa assay used tomonitor UFH and LMWH. Performed By: #### 0 0121, 03383, 89785 ####[facility] [facility].[address] APTTon 09-11-2018 aPTT Coag time (Bld) 101.0 s Critically high 25.0-35.0 [facility] Comment on above: Order Comment: No: D [...] RNAT 615 Performed By: #### 0 0121, 65470, 18298 ####[facility] [address], [facility] BASIC METABOLIC PANELon 10-2 Calcium mass conc 8.9 mg/dL Normal 8.6-10.3 [facility] Comment on above: Order Comment: No: D o not add to previous draw Performed By: #### 0 0121, 96491, 51290 ####[facility] [address], [facility] Chloride molar conc 106 mmol/L Normal 98-107 [facility] Comment on above: Order Comment: No: D o not add to previous draw Performed By: #### 0 0121, 51536, 21398 ####[facility] [address], [facility] CO2 molar conc 25 mmol/L Normal 21-31 [facility] Comment on above: Order Comment: No: D o not add to previous draw Performed By: #### 0 0121, 93381, 14159 ####[place] [address] [address], [facility] Creatinine mass conc 0.84 mg/dL Normal 0.70-1.30 [facility] Comment on above: Order Comment: No: D o not add to previous draw Performed By: #### 0 0121, 53799, 69285 ####[facility] [address], [facility] GFR/1.73 sq M predicted among blacks MDRD vol rate/area (S/P/Bld) mL/min/{1.73_m2} Normal >60 [facility] Comment on above: Order Comment: No: D o not add to previous draw Performed By: #### 0 0121, 13037, 66142 ####[facility] [facility] [place] [address], [facility] GFR/1.73 sq M predicted among non-blacks MDRD vol rate/area (S/P/Bld) mL/min/{1.73_m2} Normal >60 [facility] Comment on above: Order Comment: No: D o not add to previous draw Performed By: #### 0 0121, 20991, 89641 ####[facility] [facility].[address] Glucose mass conc 103 mg/dL High 70-100 [facility] Comment on above: Order Comment: No: D o not add to previous draw Performed By: #### 0 0121, 24932, 70079 ####[facility] [facility].[address] Potassium molar conc 4.0 mmol/L Normal 3.5-5.1 [facility] Comment on above: Order Comment: No: D o not add to previous draw Performed By: #### 0 0121, 89885, 45778 ####[facility] [facility].[address] Sodium molar conc 138 mmol/L Normal 136-145 [facility] Comment on above: Order Comment: No: D o not add to previous draw Performed By: #### 0 0121, 67180, 93128 ####[facility] [facility].[address] Urea nitrogen mass conc 20 mg/dL Normal 7-25 [facility] Comment on above: Order Comment: No: D o not add to previous draw Performed By: #### 0 0121, 07157, 83472 ####[facility] [place] [address], [facility] CBC W/DIFFon 09-11-2018 ABS BASOPHILS 0.0 10*3/uL Normal 0.0-0.2 [facility] Comment on above: Order Comment: No: D o not add to previous draw Performed By: #### 5 0103 ####[facility] [facility] [place] [place] [address], [facility] ABS IMM GRANS 0.0 10*3/uL Normal 0.0-0.2 [facility] Comment on above: Order Comment: No: D o not add to previous draw Performed By: #### 5 0103 ####[facility] [place] [address], [facility] ABS NEUTROPHILS 3.1 10*3/uL Normal 1.6-7.6 [facility] Comment on above: Order Comment: No: D o not add to previous draw Performed By: #### 5 0103 ####[facility] [place] [address], [facility] Basophils Auto #/vol (Bld) 0.8 % Normal 0.0-1.0 [facility] Comment on above: Order Comment: No: D o not add to previous draw Performed By: #### 5 0103 ####[facility] [facility] [place] [place] [address], [facility] Eosinophils Auto #/vol (Bld) 0.2 10*3/uL Normal 0.0-0.5 [facility] Comment on above: Order Comment: No: D o not add to previous draw Performed By: #### 5 0103 ####[facility] [place] [address], [facility] Eosinophils/100 WBC Auto (Bld) 3.5 % Normal 0.0-6.0 [facility] Comment on above: Order Comment: No: D o not add to previous draw Performed By: #### 5 0103 ####[facility] [place] [address], [facility] Erythrocyte distribution width Auto Ratio (RBC) 12.8 % Normal 11.5-15.0 [facility] Comment on above: Order Comment: No: D o not add to previous draw Performed By: #### 5 0103 ####[facility] Hematocrit Auto Volume Fraction (Bld) 45.3 % Normal 39.0-50.0 [facility] Comment on above: Order Comment: No: D o not add to previous draw Performed By: #### 5 0103 ####[facility] Hemoglobin mass conc (Bld) 15.3 g/dL Normal 13.0-17.0 [facility] Comment on above: Order Comment: No: D o not add to previous draw Performed By: #### 5 0103 ####[facility] IMMATURE GRANS 0.4 % Normal 0.0-1.0 [facility] Comment on above: Order Comment: No: D o not add to previous draw Performed By: #### 5 3 ####[facility] Lymphocytes Auto #/vol (Bld) 1.4 10*3/uL Normal 1.2-4.0 [facility] Comment on above: Order Comment: No: D o not add to previous draw Performed By: #### 5 0103 ####[facility] Lymphocytes/100 WBC Auto (Bld) 25.9 % Normal 20.0-45.0 [facility] Comment on above: Order Comment: No: D o not add to previous draw Performed By: #### 5 0103 ####[facility] MCH Auto Entitic mass (RBC) 30.5 pg Normal 27.0-33.0 [facility] Comment on above: Order Comment: No: D o not add to previous draw Performed By: #### 5 3 ####[facility] MCHC Auto mass conc (RBC) 33.8 g/dL Normal 32.0-35.0 [facility] Comment on above: Order Comment: No: D o not add to previous draw Performed By: #### 5 3 ####[facility] MCV Auto Entitic volume (RBC) 90.2 fL Normal 82.0-98.0 [facility] Comment on above: Order Comment: No: D o not add to previous draw Performed By: #### 5 3 ####[facility] Monocytes Auto #/vol (Bld) 0.5 10*3/uL Normal 0.1-1.0 [facility] Comment on above: Order Comment: No: D o not add to previous draw Performed By: #### 5 3 ####[facility] MONOS 10.2 % Normal 5.0-12.0 [facility] Comment on above: Order Comment: No: D o not add to previous draw Performed By: #### 5 3 ####[facility] Neutrophils/100 WBC Auto (Bld) 59.2 % Normal 40.0-72.0 [facility] Comment on above: Order Comment: No: D o not add to previous draw Performed By: #### 5 3 ####[facility] Nucleated RBC/100 WBC Ratio (Bld) 0 % Normal 0-0 [facility] Comment on above: Order Comment: No: D o not add to previous draw Performed By: #### 5 0103 ####[facility] [facility] [place] [address], [facility] PLAT CNT 226 10*3/uL Normal 150-400 [facility] Comment on above: Order Comment: No: D o not add to previous draw Performed By: #### 5 0103 ####[facility] [facility] [place] [place] [address], [facility] RBC Auto #/vol (Bld) 5.02 10*6/uL Normal 4.20-5.70 [facility] Comment on above: Order Comment: No: D o not add to previous draw Performed By: #### 5 0103 ####[facility] [facility] [place] [place] [address], [facility] WBC Auto #/vol (Bld) 5.21 10*3/uL Normal 4.00-10.60 [facility] Comment on above: Order Comment: No: D o not add to previous draw Performed By: #### 5 3 ####[facility]3000 [facility].[address] MAGNESIUM BLOODon 09-11-2018 Magnesium mass conc 1.8 mg/dL Low 1.9-2.7 [facility] Comment on above: Order Comment: No: D o not add to previous draw Performed By: #### 0 0121, 95082, 15159 ####[facility] PHOSPHORUS BLOODon 8 Phosphate mass conc 3.0 mg/dL Normal 2.5-5.0 [facility] Comment on above: Order Comment: No: D o not add to previous draw Performed By: #### 0 0121, 52944, 02360 ####[facility] PROTHROMBIN TIMEon 8 INR Coag RelTime (PPP) 1.01 {INR} Normal 0.91-1.16 [facility] Comment on above: Order Comment: No: [...] OF ACTION, CLINICALEFFECTIVENESS, AND OPTIMAL THERAPEUTIC RANGE. [id number]. Performed By: #### 0 0121, 71012, 82727 ####[facility] [facility].[address] Prothrombin time (PT) Coag time (PPP) 13.3 s Normal 12.3-14.8 [facility] Comment on above: Order Comment: No: D o not add to previous draw Result Comment: ALL RESULTS MUST BE INTERPRETED WITH RESPECT TO BLOOD DRAWING ARTIFACTOR DILUTION ERROR OF ANTICOAGULANT AT THE TIME OF SAMPLING. Performed By: #### 0 0121, 15464, 04551 ####[facility] [facility].[address] TROPONIN-Ion 09-11-2018 Troponin I.cardiac mass conc 0.00 ng/mL Normal 0.00-0.04 [facility] Comment on above: Order Comment: No: D o not add to previous draw Result Comment: REFE RENCE RANGES: 0.00 - 0.14 ng/ml NEGATIVE 0.15 - 0.25 ng/ml INDETERMINATE > 0.25 ng/ml INDICATIVE OF AN M.I. Performed By: #### 3 5200 ####[facility]3000 [facility].[address] UFH HEPARIN ASSAYon 09-11-20 18 UNFRACTIONATED HEPARIN 0.40 IU/mL Normal 0.30-0.70 [facility] Comment on above: Result Comment: Lisa roxaban and Apixaban will interfere with the anti Xa assay used tomonitor UFH and LMWH. Performed By: #### 0 0121, 34422, 74643 ####[facility] [facility].[address] UNFRACTIONATED HEPARIN 0.39 IU/mL Normal 0.30-0.70 [facility] Comment on above: Result Comment: Somers roxaban and Apixaban will interfere with the anti Xa assay used tomonitor UFH and LMWH. Performed By: #### 0 0121, 94745, 25268 ####[facility] [facility].[address] UNFRACTIONATED HEPARIN 0.70 IU/mL Normal 0.30-0.70 [facility] Comment on above: Result Comment: Somers roxaban and Apixaban will interfere with the anti Xa assay used tomonitor UFH and LMWH. Performed By: #### 0 0121, 52251, 24380 ####[facility] [facility].[address] UNFRACTIONATED HEPARIN 0.49 IU/mL Normal 0.30-0.70 [facility] Comment on above: Result Comment: Lisa roxaban and Apixaban will interfere with the anti Xa assay used tomonitor UFH and LMWH. Performed By: #### 3 0477 ####[facility] APTTon 09-10-2018 aPTT Coag time (Bld) 26.2 s Normal 25.0-35.0 [facility] Comment on above: Result Comment: ALL RESULTS [...] THIS PURPOSE. Performed By: #### 5 6101, 49389 ####[facility] [place] [address] CBC W/DIFFon 09-10-2018 ABS BASOPHILS 0.0 10*3/uL Normal 0.0-0.2 [facility] Comment on above: Order Comment: No: D o not add to previous draw Performed By: #### 5 0103 ####[address] ABS IMM GRANS 0.0 10*3/uL Normal 0.0-0.2 [facility] Comment on above: Order Comment: No: D o not add to previous draw Performed By: #### 5 0103 ####[place] [address] ABS NEUTROPHILS 6.0 10*3/uL Normal 1.6-7.6 [facility] Comment on above: Order Comment: No: D o not add to previous draw Performed By: #### 5 0103 ####[address] Basophils Auto #/vol (Bld) 0.4 % Normal 0.0-1.0 [facility] Comment on above: Order Comment: No: D o not add to previous draw Performed By: #### 5 0103 ####[address] Eosinophils Auto #/vol (Bld) 0.1 10*3/uL Normal 0.0-0.5 [facility] Comment on above: Order Comment: No: D o not add to previous draw Performed By: #### 5 0103 ####[facility] Eosinophils/100 WBC Auto (Bld) 1.1 % Normal 0.0-6.0 [facility] Comment on above: Order Comment: No: D o not add to previous draw Performed By: #### 5 0103 ####[facility] Erythrocyte distribution width Auto Ratio (RBC) 12.5 % Normal 11.5-15.0 [facility] Comment on above: Order Comment: No: D o not add to previous draw Performed By: #### 5 3 ####[facility] Hematocrit Auto Volume Fraction (Bld) 48.8 % Normal 39.0-50.0 [facility] Comment on above: Order Comment: No: D o not add to previous draw Performed By: #### 5 3 ####[facility] Hemoglobin mass conc (Bld) 16.6 g/dL Normal 13.0-17.0 [facility] Comment on above: Order Comment: No: D o not add to previous draw Performed By: #### 5 3 ####[facility] IMMATURE GRANS 0.3 % Normal 0.0-1.0 [facility] Comment on above: Order Comment: No: D o not add to previous draw Performed By: #### 5 0103 ####[facility] Lymphocytes Auto #/vol (Bld) 1.2 10*3/uL Normal 1.2-4.0 [facility] Comment on above: Order Comment: No: D o not add to previous draw Performed By: #### 5 0103 ####[facility] Lymphocytes/100 WBC Auto (Bld) 14.7 % Low 20.0-45.0 [facility] Comment on above: Order Comment: No: D o not add to previous draw Performed By: #### 5 0103 ####[facility] MCH Auto Entitic mass (RBC) 30.3 pg Normal 27.0-33.0 [facility] Comment on above: Order Comment: No: D o not add to previous draw Performed By: #### 5 0103 ####[facility] MCHC Auto mass conc (RBC) 34.0 g/dL Normal 32.0-35.0 [facility] Comment on above: Order Comment: No: D o not add to previous draw Performed By: #### 5 3 ####[facility] MCV Auto Entitic volume (RBC) 89.2 fL Normal 82.0-98.0 [facility] Comment on above: Order Comment: No: D o not add to previous draw Performed By: #### 5 0103 ####[facility] Monocytes Auto #/vol (Bld) 0.6 10*3/uL Normal 0.1-1.0 [facility] Comment on above: Order Comment: No: D o not add to previous draw Performed By: #### 5 0103 ####[facility] MONOS 7.9 % Normal 5.0-12.0 [facility] Comment on above: Order Comment: No: D o not add to previous draw Performed By: #### 5 0103 ####[facility] [place] [address], [facility] Neutrophils/100 WBC Auto (Bld) 75.6 % High 40.0-72.0 [facility] Comment on above: Order Comment: No: D o not add to previous draw Performed By: #### 5 0103 ####[facility]3000 [facility] Nucleated RBC/100 WBC Ratio (Bld) 0 % Normal 0-0 [facility] Comment on above: Order Comment: No: D o not add to previous draw Performed By: #### 5 0103 ####[facility]3000 [facility].[address] PLAT CNT 243 10*3/uL Normal 150-400 [facility] Comment on above: Order Comment: No: D o not add to previous draw Performed By: #### 5 0103 ####[facility]3000 [facility].[address] RBC Auto #/vol (Bld) 5.47 10*6/uL Normal 4.20-5.70 [facility] Comment on above: Order Comment: No: D o not add to previous draw Performed By: #### 5 3 ####[facility]3000 [facility].[address] WBC Auto #/vol (Bld) 7.87 10*3/uL Normal 4.00-10.60 [facility] Comment on above: Order Comment: No: D o not add to previous draw Performed By: #### 5 3 ####[facility]3000 [facility].[address] COMP METABOLIC PANELon 09-10 Albumin mass conc 4.0 g/dL Normal 3.5-5.7 [facility] Comment on above: Order Comment: No: D o not add to previous draw Performed By: #### 0 0121, 01644, 96663 ####[facility] [place] [address], [facility] ALKALINE PHOSPH 59 IU/L Normal 34-104 [facility] Comment on above: Order Comment: No: D o not add to previous draw Performed By: #### 0 0121, 52154, 45657 ####[facility] [place] [address], [facility] ALT enzyme act/vol 22 U/L Normal 7-52 [facility] Comment on above: Order Comment: No: D o not add to previous draw Performed By: #### 0 0121, 21081, 37430 ####[facility] [place] [address], [facility] AST enzyme act/vol 20 U/L Normal 13-39 [facility] Comment on above: Order Comment: No: D o not add to previous draw Performed By: #### 0 0121, 25753, 82756 ####[facility] [place] [address], [facility] Bilirubin mass conc 0.8 mg/dL Normal 0.3-1.0 [facility] Comment on above: Order Comment: No: D o not add to previous draw Performed By: #### 0 0121, 31151, 65490 ####[facility] [place] [address], [facility] Calcium mass conc 8.8 mg/dL Normal 8.6-10.3 [facility] Comment on above: Order Comment: No: D o not add to previous draw Performed By: #### 0 0121, 48498, 00786 ####[facility] [place] [address], [facility] Chloride molar conc 103 mmol/L Normal 98-107 [facility] Comment on above: Order Comment: No: D o not add to previous draw Performed By: #### 0 0121, 27798, 81876 ####[facility] [place] [address], [facility] CO2 molar conc 28 mmol/L Normal 21-31 [facility] Comment on above: Order Comment: No: D o not add to previous draw Performed By: #### 0 0121, 07591, 04411 ####[facility] [place] [address], [place] Creatinine mass conc 0.93 mg/dL Normal 0.70-1.30 [facility] Comment on above: Order Comment: No: D o not add to previous draw Performed By: #### 0 0121, 64348, 58053 ####[facility] [place] [address], [place] GFR/1.73 sq M predicted among blacks MDRD vol rate/area (S/P/Bld) mL/min/{1.73_m2} Normal >60 [facility] Comment on above: Order Comment: No: D o not add to previous draw Performed By: #### 0 0121, 96369, 10656 ####[facility] [place] [address], [facility] GFR/1.73 sq M predicted among non-blacks MDRD vol rate/area (S/P/Bld) mL/min/{1.73_m2} Normal >60 [facility] Comment on above: Order Comment: No: D o not add to previous draw Performed By: #### 0 0121, 67386, 87122 ####[facility] [place] [address], [place] Glucose mass conc 94 mg/dL Normal 70-100 [facility] Comment on above: Order Comment: No: D o not add to previous draw Performed By: #### 0 0121, 94291, 22745 ####[facility] [place] [address], [place] Potassium molar conc 4.0 mmol/L Normal 3.5-5.1 [facility] Comment on above: Order Comment: No: D o not add to previous draw Performed By: #### 0 0121, 95358, 33093 ####[facility] Protein mass conc 6.8 g/dL Normal 6.0-8.3 [facility] Comment on above: Order Comment: No: D o not add to previous draw Performed By: #### 0 0121, 27344, 70693 ####[facility] Sodium molar conc 140 mmol/L Normal 136-145 [facility] Comment on above: Order Comment: No: D o not add to previous draw Performed By: #### 0 0121, 59636, 80960 ####[facility] Urea nitrogen mass conc 19 mg/dL Normal 7-25 [facility] Comment on above: Order Comment: No: D o not add to previous draw Performed By: #### 0 0121, 94195, 89507 ####[facility] PROTHROMBIN TIMEon 10-19-201 8 INR Coag RelTime (PPP) 0.93 {INR} Normal 0.91-1.16 [facility] Comment on above: Result Comment: ACCC P RECOMMENDED INR FOR WARFARIN THERAPY CONDITION INRPROPHYLAXIS OF VENOUS THROMBOSIS 2-3(HIGH-RISK SURGERY)TREATMENT OF VENOUS THROMBOSIS 2-3TREATMENT OF PULMONARY EMBOLISM 2-3PREVENTION OF SYSTEMIC EMBOLISM: 2-3 ACUTE MYOCARDIAL INFARCTION TISSUE HEART VALVES VALVULAR HEART DISEASE ATRIAL FIBRILLATION RECURRENT SYSTEMIC EMBOLISMMECHANICAL HEART VALVE 2.5-3.5 FROM: ORAL ANTICOAGULANTS. MECHANISM OF ACTION, CLINICALEFFECTIVENESS, AND OPTIMAL THERAPEUTIC RANGE. [id number]. Performed By: #### 5 6101, 42160 ####[facility] Prothrombin time (PT) Coag time (PPP) 12.5 s Normal 12.3-14.8 [facility] Comment on above: Result Comment: ALL RESULTS MUST BE INTERPRETED WITH RESPECT TO BLOOD DRAWING ARTIFACTOR DILUTION ERROR OF ANTICOAGULANT AT THE TIME OF SAMPLING. Performed By: #### 5 6101, 10756 ####[place] [address] [facility].[address] TROPONIN-Ion 09-10-2018 Troponin I.cardiac mass conc 0.00 ng/mL Normal 0.00-0.04 [facility] Comment on above: Order Comment: No: D o not add to previous draw Result Comment: REFE RENCE RANGES: 0.00 - 0.14 ng/ml NEGATIVE 0.15 - 0.25 ng/ml INDETERMINATE > 0.25 ng/ml INDICATIVE OF AN M.I. Performed By: #### 3 5200 ####[place] [address] [facility].[address] Troponin I.cardiac mass conc 0.00 ng/mL Normal 0.00-0.04 [facility] Comment on above: Result Comment: REFE RENCE RANGES: 0.00 - 0.14 ng/ml NEGATIVE 0.15 - 0.25 ng/ml INDETERMINATE > 0.25 ng/ml INDICATIVE OF AN M.I. Performed By: #### 0 0121, 93864, 96096 ####[facility]3000 [facility] [place] [address], [place] TSH3on 09-10-2018 TSH 3RD GENERATION 1.05 uIU/mL Normal 0.34-5.60 [facility] Comment on above: Performed By: #### 0 0121, 94030, 02978 ####[facility] [address] [address], [facility] Vital Signs Date Time Vital Sign Value Performing Clinician Faci lity 10-01-2023 08:20-0500 Body height 193.04 cm Sher Whitfield Other [employer] Other 10-01-2023 08:20-0500 Body mass index (BMI) [Ratio] 27.75 kg/m2 Sher Whitfield Other [employer] Other 10-01-2023 08:20-0500 Body weight 103.42 kg Sher Whitfield Other [employer] Other 1960 23:00-0500 >na< Ellie Rodríguez Dept. of Dermato logy Encounters Encounter Date Encounter Type Care Provider Facility Start: 05-23-2024 End: 05-23-2024 ambulatory Gold Choi MD Facility: [facility] Start: 05-09-2024 End: 05-09-2024 ambulatory Gold Choi MD Facility: [facility] Start: 05-02-2024 End: 05-02-2024 ambulatory Gold Choi MD Facility: [facility] Start: 11-10-2023 End: 11-10-2023 ambulatory RANDY CARRANZA [facility] Start: 10-01-2023 Office outpatient ne w 30 minutes Sher Whitfield [facility] Neurosurgery Start: 10-01-2023 End: 10-01-2023 ambulatory Sher Whitfield Facility:[facility] Start: 10-01-2023 End: 10-01-2023 ambulatory MD Kacy Jacobson Work Phone: [facility] Work Phone: Start: 10-01-2023 End: 10-01-2023 Patient encounter procedure MD Kacy Jacobson Work Phone: [facility] Work Phone: Start: 04-01-2023 End: 04-01-2023 ambulatory [facility] Start: 03-24-2023 Luke Reinoso Dept. of [...] abnormal findings DR KACY JACOBSON . [facility] Start: 01-22-2023 End: 01-23-2023 ambulatory [...] End: 09-14-2018 Patient encounter procedure DEFAULT PHYSICIAN Facility:[facility] Start: 09-10-2018 End: 09-14-2018 Evaluation and management of inpatient AVE LUEVANO Facility:[facility] Start: 08-25-2018 End: 08-26-2018 Patient encounter procedure DEFAULT PHYSICIAN Facility:[facility] Procedures Date Procedure Procedure Detail Performing [...] T 7, URIC, TSH, CMP, LIPID #### [facility] [address] [place] [address] Dr. Ayush Sorto Start: 09-13-2018 [facility], Single LIZETTE V MOUKARBEL Immunizations Immunization Date Immunization Notes Care Provider Taylor madrid 1960 pneumococcal conjuga te vaccine, 7 valent Ellie Rodríguez Dept. of Dermatology Payers Date Payer Category Payer Medicare 2023 Self-pay 2006 Private Health Insurance [id number] 1960 Unknown [id number] 1960 Unknown [id number] 2.16.8 40.1.038462.3.579.2.647 1959 Unknown [id number] 2.16.8 40.1.292898.3.579.2.647 1959 Unknown [id number] 2.16.8 40.1.698087.3.579.2.647 1959 Unknown [id number] 2.16.84 0.1.948111.3.579.2.593 1959 Unknown [id number] 2.16.84 0.1.184248.3.579.2.593 1959 Unknown [id number] 2.16.84 0.1.245896.3.579.2.593 1959 Unknown [id number] 2.16.84 0.1.282198.3.579.2.593 1959 Unknown [id number] 2.16.84 0.1.640991.3.579.2.593 1959 Unknown [id number] 2.16.84 0.1.520587.3.579.2.593 1959 Unknown [id number] 2.16.84 0.1.413363.3.579.2.593 1959 Unknown [id number] 2.16. 840.1.687357.3.579.2.356 1959 Unknown [id number] 2.16. 840.1.371945.3.579.2.356 1959 Unknown [id number] 2.16. 840.1.887465.3.579.2.356 1959 Unknown [id number] 2.16. 840.1.121902.3.579.2.196 1959 Unknown [id number] 2.16. 840.1.866840.3.579.2.196 1959 Unknown [id number] 2.16. 840.1.252787.3.579.2.196 Unknown Unknown [id number] 2.16.8 40.1.690434.3.579.2.531 Social History Date Type Detail Facility Start: 03-02-2023 Dept. of D ermatology Start: 1960 End: 1960 Sex Assigned At Male [facility] Sex Assigned At Sex Assigned At Bir [facility] [employer] Other Goals Date Patient Goal Desired Activity /State Clinical Notes 04-01-2023 to 11-10-2023 Note Date & Type Note Facility 11-10-2023 Note [facility] Electrophysiology Consult Note Reason for visit: afib [...] history was recently cardioverted by me at [facility] to SR . He states [...] rhonchi Cardiovascular Rat (more content not included)... [facility] 11-10-2023 Note Patient here for 6 m o follow up chronic afib. No recent labs or imaging. Denies chest pain, SOB, palpitations, lightheadedness/syncope, and bleeding on Xarelto. BP at home when checked averages around 120/80. Review of Systems Musculoskeletal: Positive for myalgias. All other systems reviewed and are negative. [facility] 10-01-2023 Evaluation note Encounter Date Diagnosis Assessment [...] Pain in left leg (ICD-10 - M79.605) [employer] Other [id number] Note-advised to [facility]-BP controlled -ct medications: lisinopril 10mg every day, toprol tartrate 75mg bid, xarelto 20mg, aldactone 25mg qdUnBrown [facility]05-17-2023 Note [id number] 1 for htn, will ct xarelto -DCCV x3 with amio, still has afib controlled rate and known hx of slow VR int0 40bpm -surgical ablation was mentioned as an option for ablation vs PPM with AVN ablation, patient does not want to consider at this time -will have him follow up [place] [address] [facility] NotePatient here for 6 mo [...] myalgias. All other systems reviewed and are negative.[facility] 04-01-2023 NoteUT Electrophysiology Consult Note Reason for [...] history was recently cardioverted by me at [facility] to SR . He states [...] Hematologic/Lymphatic Hematologic/Lymphatic no swoll (more content not included)...[facility]/ADept. of Dermatology Evaluation noteNo assessment information available [facility] Work Phone: History general Narrative - Reported* Type Description Date Medical History heart disease Medical History melanoma Surgical History melanoma excision Hospitalization History see above [employer] Other reason for referral (narrative)* Name Reason [...] 2023 7:32am Hospital Course Note [id number] Admitted: 09/10/2018 Discharged: 09/14/2018 Date of : 1960 Physician: Primo Glaser MD DISCHARGE SUMMARYDISCHARGE ATTENDING PHYSICIAN: Primo Glaser [facility] CARE PHYSICIAN: Dr. Jacobson at [phone].PRINCIPAL DIAGNOSIS: Atrial fibrillation/flutter, status post TEEconversion currently [...] AUTHOR AUTHOR'S ORGANIZ ATION 03/25/2023 [facility] DATE CREATED AUTHOR AUTHOR'S ORGANIZ ATION 10/09/2023 [facility] DATE CREATED AUTHOR AUTHOR'S ORGANIZ ATION 11/18/2023 [facility] DATE CREATED AUTHOR AUTHOR'S ORGANIZ ATION 05/26/2024 [facility] Care Teams (unrecognized sec tion and [...] BE BASED ON THE PRIMARY CLINICAL RECORDS. [facility]. provides no warranty or guarantee of the accuracy or completeness of information in this document.
[2024-09-12 09:17] VITALS: BP 145/84; PULSE 55; TEMP 36.1; O2SAT 98
[2024-09-12] MEDS: BUPIVACAINE HCL 0.25% PF 25 MG/10 ML VIAL INJ (09:47)
[2024-09-12] MEDS: IOHEXOL 240 MG/ML - 10 ML VIAL INJ (09:57)
[2024-09-12] MEDS: TRIAMCINOLONE ACETONIDE 40 MG/ML VIAL 80 MG INJ (09:57)
[2024-09-12] MEDS: 0.9 % SODIUM CHLORIDE 10 ML SYRINGE - SALINE FLUSH INJ (09:57)
[2024-09-12] MEDS: LIDOCAINE HCL 2% 400 MG/20 ML MDV 3 ML INJ (09:57)
[2024-09-12 10:00] VITALS: BP 137/81; BP 146/83; PULSE 52; PULSE 66; O2SAT 96
--- NOTE | 2024-09-12 10:02 | W.PM.PROCNOT ---
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 Informed consent was obtained and placed on the chart.? Patient was brought to the medical procedure unit and placed in the prone position where a timeout was completed verifying the correct patient, procedure site, position, and planned special equipment using sterile aseptic technique.? Under direct fluoroscopic visualization a 25-gauge Quincke tipped spinal needle was advanced at level left L4-5 to the designated neural foramen where contrast dye was injected to show adequate spread.? There was no evidence of vascular or adverse uptake.? Epidural spread was appreciated.? The above-mentioned injectate was then placed in a 1.5 mL aliquot preceded by negative aspiration.? The needle was removed. The same procedure, at the same level, was completed on the opposite side. ? Patient was taken to the postprocedural recovery area and monitored for an appropriate length of time before found suitable for discharge in the accompaniment of a responsible adult. Anesthesia: Local Surgeon: Gold Choi Pathology: none sent Condition: stable Disposition: no change
== END 2024-09-12 10:04 | disposition home or self-care (01) ==
LOC: SURGOUT 08:54
PROVIDERS: PCP Family Medicine; Visit Provider Anesthesiology
DX: M48.062 Spinal stenosis, lumbar region with neurogenic claudication (principal)
CPT/HCPCS: 64483; J0665; J3301; Q9966

== ENCOUNTER 2024-09-21 07:59 | Outpatient (OUT) | payer OTHER, SELFPAY ==
--- OUTSIDE RECORDS SUMMARY | 2024-09-21 08:02 | XMS_ITS | CCD ---
Author Organization [facility] Care Team Providers Care Visitor Services Assistant Name Role Phone PHYSICIAN, DEFAULT Unavailable Unavailable PHYSICIAN, DEFAULT Unavailable Unavailable CHLOÉ, HANI Unavailable Unavailable YURY FUNEZ AM Unavailable Unavailable KACY JACOBSON Unavailable Unavailable RODOLFOPRIMO COLLAZO R Unavailable Unavailable [place] Unavailable Unavailable UNKNOWN, PROVIDER Unavailable Unavailable PHYSICIAN, [...] Provider MD Kacy Jacobson Primary Care Provider [phone] Sher Whitfield Unavailable Sher Whitfield Attending Unavailable Sher Whitfield Admitting Unavailable Kacy Jacobson Primary Care Unavailable KATHE DE DIOS Attending Unavailable RANDY CARRANZA Attending Unavailable Stpeh ENGEL, Gold Boles Attending Unavailable Steph ENGEL, [...] Onset: 09-10-2022 Chronic Other aftercare (1 source) skilled nursing (current) use of anticoagulants; 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 Orders Onlyon 11-10-2023 Orders Only [id number] Susanna Hogue naldo Greenberg 1960 M Date Provider Department Center 11/10/2023 CRISTINO AYALA [facility] Family History Problem Relation Age of Onset Heart attack Maternal Grandfather Family Status - Relation Status Age at Maternal Grandfather [facility] XR lumbar spine 6V w bending on 10-01-2023 XR lumbar spine 6V w bending [facility] [place] [address] [place] [address] XRay Report Signed Patient: Reece Hogue MR#: [id number] : 1960 Acct:[id number] Age/Sex: 63 / M ADM Date: 10/01/23 Loc: XD Room: Type: [facility] Attending Dr: Sher Whitfield MD Copies to: [...] Nila Christensen M.D.10/01/2023 12:35 PM Dictation Location: [place] [address] Transcribed By: [facility] 10/01/23 1235 Dictated By: Nila Christensen MD 10/01/23 1226 Signed By: 10/01/23 1235 [facility] Office Visiton 04-01-2023 Follow-up visit [id number] Susanna Hogue naldo Greenberg 1960 M Date Provider Department Center 04/01/2023 1596-KATHE DE DIOS BH C[facility] Family History Problem Relation Age of Onset Heart attack Maternal Grandfather Family Status - Relation Status Age at Maternal Grandfather Level of Service:60230 [place] OFFICE/OUTPATIENT ESTABLISHED MOD MDM 30-39 MIN Reason for Visit and Comments: Atrial Fibrillation [80] Hypertension [148254] Normal [facility] Dermatopathologyon 3 Dermatopathology Name: REECE HOGUEMayank Pathologist: JAIMEE NEGRETE MD Date of Procedure: 02/24/2023 Date Received: 02/24/2023 Date Reported 02/25/2023 Submitting Physician: LUKE REINOSO MD, Location: [facility] Copy To/Referring/Attending: MD KAUR PERDOMO FINAL DIAGNOSIS 4 SLIDES, [facility], #[id number] (BX: 02/03/2023) SKIN, LEFT NASAL SIDEWALL, SHAVE [...] REPORT A. 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 Slide/Block Description 4 SLIDES, [id number]. Keep Slides: N Slides Returned: N Personal Consult: N Normal [facility] Comment on above: Performed By: [...] JO RUSSELL Date: 2023-02-18 14:29 Normal [facility] INSULINon 01-23-2023 Insulin 7.9 uIU/mL Normal 2.6-24.9 [facility] Comment on above: Performed By: #### T 7, URIC, TSH, CMP, LIPID #### [facility] [address] [place] [address] Dr. Ayush Sorto CBC AUTO DIFFon 01-22-2023 BASO # 0.0 103/ul Normal 0.0-0.1 [facility] Comment on above: Performed By: #### C BC #### [facility] [address] [place] [address] Dr. Ayush Sorto Basophils/100 WBC (Bld) 0.6 % Normal 0.2-2.0 [facility] Comment on above: Performed By: #### C BC #### [facility] [address] [place] [address] Dr. Ayush Sorto EO # 0.2 103/ul Normal 0.0-0.7 [facility] Comment on above: Performed By: #### C BC #### [facility] [address] [place] [address] Dr. Ayush Sorto Eosinophils/100 WBC (Bld) 2.3 % Normal 0.9-7.0 [facility] Comment on above: Performed By: #### C BC #### [facility] [address] [place] [address] Dr. Ayush Sorto Erythrocyte distribution width (RBC) [Ratio] 13.2 % Normal 11.0-15.0 [facility] Comment on above: Performed By: #### C BC #### [facility] [address] [place] [address] Dr. Ayush Sorto Hematocrit (Bld) [Volume fraction] 48.6 % Normal 42.0-54.0 [facility] Comment on above: Performed By: #### C BC #### [facility] [address] [place] [address] Dr. Ayush Sorto Hemoglobin (Bld) [Mass/Vol] 16.4 g/dL Normal 14.0-18.0 [facility] Comment on above: Performed By: #### C BC #### [facility] [address] [place] [address] Dr. Ayush Sorto IG # 0.02 10e3/ul Normal 0.00-0.03 [facility] Comment on above: Performed By: #### C BC #### [facility] [address] [place] [address] Dr. Ayush Sorto IG % 0.3 % Normal 0.0-0.5 [facility] Comment on above: Performed By: #### C BC #### [facility] [address] [place] [address] Dr. Ayush Sorto LYMPH # 1.6 103/ul Normal 1.2-3.8 [facility] Comment on above: Performed By: #### C BC #### [facility] [address] [place] [address] Dr. Ayush Sorto Lymphocytes/100 WBC (Bld) 24.7 % Normal 20.5-60.0 [facility] Comment on above: Performed By: #### C BC #### [facility] [address] [place] [address] Dr. Ayush Sorto MANUAL DIFF REQ NO Normal [facility] Comment on above: Performed By: #### C BC #### [facility] [address] [place] [address] Dr. Ayush Sorto MCH (RBC) [Entitic mass] 30.0 pg Normal 25.9-34.0 [facility] Comment on above: Performed By: #### C BC #### [facility] [address] [place] [address] Dr. Ayush Sorto MCHC (RBC) [Mass/Vol] 33.7 g/dL Normal 29.9-35.2 [facility] Comment on above: Performed By: #### C BC #### [facility] [address] [place] [address] Dr. Ayush Sorto MCV (RBC) [Entitic vol] 89.0 fL Normal 80.0-94.0 [facility] Comment on above: Performed By: #### C BC #### [facility] [address] [place] [address] Dr. Ayush Sorto MONO # 0.7 103/ul Normal 0.3-0.8 [facility] Comment on above: Performed By: #### C BC #### [facility] [address] [place] [address] Dr. Ayush Sorto Monocytes/100 WBC (Bld) 10.1 % Normal 1.7-12.0 [facility] Comment on above: Performed By: #### C BC #### [facility] [address] [place] [address] Dr. Ayush Sorto NEUT # 4.1 103/ul Normal 1.4-6.5 [facility] Comment on above: Performed By: #### C BC #### [facility] [address] [place] [address] Dr. Ayush Sorto Neutrophils/100 WBC (Bld) 62.0 % Normal 43.0-75.0 [facility] Comment on above: Performed By: #### C BC #### [facility] [address] [place] [address] Dr. Ayush Sorto Platelet mean volume (Bld) [Entitic vol] 8.6 fL Critically low 9.5-13.5 [facility] Comment on above: Performed By: #### C BC #### [facility] [address] [place] [address] Dr. Ayush Sorto PLT 248 103/ul Normal 150-450 [facility] Comment on above: Performed By: #### C BC #### [facility] [address] [place] [address] Dr. Ayush Sorto RBC 5.46 106/ul Normal 4.70-6.10 [facility] Comment on above: Performed By: #### C BC #### [facility] [address] [place] [address] Dr. Ayush Sorto WBC 6.6 103/ul Normal 4.0-11.0 [facility] Comment on above: Performed By: #### C BC #### [facility] [address] [place] [address] Dr. Ayush Sorto FREE THYROXINE INDEX T7on FTI 3.31 Normal 1.30-4.50 [facility] Comment on above: Performed By: #### T 7, URIC, TSH, CMP, LIPID #### [facility] [address] [place] [address] Dr. Ayush Sorto T3U 36.0 % Normal 33.0-40.0 [facility] Comment on above: Performed By: #### T 7, URIC, TSH, CMP, LIPID #### [facility] [address] [place] [address] Dr. Ayush Sorto T4 [Mass/Vol] 9.20 ug/dL Normal 4.50-12.10 [facility] Comment on above: Performed By: #### T 7, URIC, TSH, CMP, LIPID #### [facility] [address] [place] [address] Dr. Ayush Sorto GLYCOHEMOGLOBIN A1Con 2022 ADA RECOMMENDATION SEE BELOW Normal [facility] Comment on above: Result Comment: ADA RECOMMENDED LIMIT 4.0 - 6.0 ADA THERAPEUTIC TARGET < 7.0 ACTION SUGGESTED > 7.0 Performed By: #### T 7, URIC, TSH, CMP, LIPID #### [facility] [address] [place] [address] [address] Ayush Sorto Glucose [Mass/Vol] 117 mg/dL Normal [facility] Comment on above: Performed By: #### T 7, URIC, TSH, CMP, LIPID #### [facility] [address] [place] [address] [address] Ayush Sorto HbA1c (Bld) [Mass fraction] 5.7 % Normal 4.5-6.2 [facility] Comment on above: Performed By: #### T 7, URIC, TSH, CMP, LIPID #### [facility] [address] [place] [address] [address] Ayush Sorto LIPID PROFILEon 01-22-2023 CHOL-HDL RATIO NORM SEE BELOW Normal [facility] Comment on above: Result Comment: 3.3 - 4.4 LOW RISK 4.4 - 7.1 AVERAGE RISK 7.1 - 11.0 MODERATE RISK >11.0 HIGH RISK Performed By: #### T 7, URIC, TSH, CMP, LIPID #### [facility] [address] [place] [address] [address] Ayush Sorto Cholesterol [Mass/Vol] 216 mg/dL Critically high <=200 [facility] Comment on above: Performed By: #### T 7, URIC, TSH, CMP, LIPID #### [facility] [address] [place] [address] [address] Ayush Sorto Cholesterol in HDL [Mass/Vol] 68 mg/dL Critically high 40-60 [facility] Comment on above: Performed By: #### T 7, URIC, TSH, CMP, LIPID #### [facility] [address] [place] [address] [address] Ayush Sorto Cholesterol in LDL [Mass/Vol] 136.6 mg/dL Normal [facility] Comment on above: Performed By: #### T 7, URIC, TSH, CMP, LIPID #### [facility] [address] [place] [address] [address] Ayush Sorto Cholesterol.total/C holesterol in HDL [Mass ratio] 3.2 {ratio} Normal [facility] Comment on above: Performed By: #### T 7, URIC, TSH, CMP, LIPID #### [facility] [address] [place] [address] [address] Ayush Sorto HDL NORMAL > or = 60 mg/dl - LO W CARDIOVASCULAR RISK <40 mg/dl - HIGH CARDIOVASCULAR RISK Normal [facility] Comment on above: Performed By: #### T 7, URIC, TSH, CMP, LIPID #### [facility] [address] [place] [address] [address] Ayush Sorto LDL CALC NORMAL SEE BELOW Normal [facility] Comment on above: Result Comment: <100 mg/dl OPTIMAL 100 - 129 mg/dl NEAR OR ABOVE OPTIMAL 130 - 159 mg/dl BORDERLINE HIGH 160 - 189 mg/dl HIGH >190 mg/dl VERY HIGH Performed By: #### T 7, URIC, TSH, CMP, LIPID #### [facility] [address] [place] [address] [address] Ayush Sorto Triglyceride [Mass/Vol] 57 mg/dL Normal <=150 [facility] Comment on above: Performed By: #### T 7, URIC, TSH, CMP, LIPID #### [facility] [address] [place] [address] [address] Ayush Sorto VLDL CALC 11.4 mg/dL Normal [facility] Comment on above: Performed By: #### T 7, URIC, TSH, CMP, LIPID #### [facility] [address] [place] [address] [address] Ayush Sorto PROF 14(COMP METB)on 023 Albumin [Mass/Vol] 4.0 g/dL Normal 3.4-5.0 [facility] Comment on above: Performed By: #### T 7, URIC, TSH, CMP, LIPID #### [facility] [address] [place] [address] [address] Ayush Sorto Albumin/Globulin [Mass ratio] 1.2 {ratio} Normal [facility] Comment on above: Performed By: #### T 7, URIC, TSH, CMP, LIPID #### [facility] [address] [place] [address] [address] Ayush Sorto ALP [Catalytic activity/Vol] 85 U/L Normal 46-116 [facility] Comment on above: Performed By: #### T 7, URIC, TSH, CMP, LIPID #### [facility] [address] [place] [address] Dr. Ayush Sorto ALT [Catalytic activity/Vol] 28 U/L Normal 16-63 [facility] Comment on above: Performed By: #### T 7, URIC, TSH, CMP, LIPID #### [facility] [address] [place] [address] Dr. Ayush Sorto Anion gap [Moles/Vol] 12.9 mmol/L Normal [facility] Comment on above: Performed By: #### T 7, URIC, TSH, CMP, LIPID #### [facility] [address] [place] [address] Dr. Ayush Sorto AST [Catalytic activity/Vol] 23 U/L Normal 15-37 [facility] Comment on above: Performed By: #### T 7, URIC, TSH, CMP, LIPID #### [facility] [address] [place] [address] Dr. Ayush Sorto Bilirubin [Mass/Vol] 1.1 mg/dL Critically high 0.2-1.0 [facility] Comment on above: Performed By: #### T 7, URIC, TSH, CMP, LIPID #### [facility] [address] [place] [address] Dr. Ayush Sorto Calcium [Mass/Vol] 9.2 mg/dL Normal 8.5-10.1 [facility] Comment on above: Performed By: #### T 7, URIC, TSH, CMP, LIPID #### [facility] [address] [place] [address] Dr. Ayush Sorto Chloride [Moles/Vol] 103 mmol/L Normal 98-107 [facility] Comment on above: Performed By: #### T 7, URIC, TSH, CMP, LIPID #### [facility] [address] [place] [address] Dr. Ayush Sorto CO2 [Moles/Vol] 27.9 mmol/L Normal 21.0-32.0 [facility] Comment on above: Performed By: #### T 7, URIC, TSH, CMP, LIPID #### [facility] [address] [address] [address] Ayush Sorto Creatinine [Mass/Vol] 0.88 mg/dL Normal 0.70-1.30 [facility] Comment on above: Performed By: #### T 7, URIC, TSH, CMP, LIPID #### [facility] [address] [place] [address] Dr. Ayush Sorto EGFR-AF SAMOAN >60 Normal >=60 [facility] Comment on above: Performed By: #### T 7, URIC, TSH, CMP, LIPID #### [facility] [address] [place] [address] Dr. Ayush Sorto EGFR-NON AF SAMOAN >60 Normal >=60 [facility] Comment on above: Performed By: #### T 7, URIC, TSH, CMP, LIPID #### [facility] [address] [place] [address] Dr. Ayush Sorto Globulin (S) [Mass/Vol] 3.4 g/dL Normal [facility] Comment on above: Performed By: #### T 7, URIC, TSH, CMP, LIPID #### [facility] [address] [place] [address] Dr. Ayush Sorto Glucose [Mass/Vol] 93 mg/dL Normal 74-106 [facility] Comment on above: Performed By: #### T 7, URIC, TSH, CMP, LIPID #### [facility] [address] [place] [address] Dr. Ayush Sorto Potassium [Moles/Vol] 4.8 mmol/L Normal 3.5-5.1 [facility] Comment on above: Performed By: #### T 7, URIC, TSH, CMP, LIPID #### [facility] [address] [place] [address] Dr. Ayush Sorto Protein [Mass/Vol] 7.4 g/dL Normal 6.4-8.2 [facility] Comment on above: Performed By: #### T 7, URIC, TSH, CMP, LIPID #### [facility] [address] [place] [address] Dr. Ayush Sorto Sodium [Moles/Vol] 139 mmol/L Normal 136-145 [facility] Comment on above: Performed By: #### T 7, URIC, TSH, CMP, LIPID #### [facility] [address] [place] [address] Dr. Ayush Sorto Urea nitrogen [Mass/Vol] 23.0 mg/dL Critically high 7.0-18.0 [facility] Comment on above: Performed By: #### T 7, URIC, TSH, CMP, LIPID #### [facility] [address] [place] [address] Dr. Ayush Sorto Urea nitrogen/Creatinine [Mass ratio] 26.1 mg/mg Normal [facility] Comment on above: Performed By: #### T 7, URIC, TSH, CMP, LIPID #### [facility] [address] [place] [address] Dr. Ayush Sorto TSHon 01-22-2023 TSH 1.145 uIU/mL Normal 0.358-3.74 0 [facility] Comment on above: Performed By: #### T 7, URIC, TSH, CMP, LIPID #### [facility] [address] [place] [address] Dr. Ayush Sorto URIC ACID SERUMon 01-22-2023 Urate [Mass/Vol] 6.8 mg/dL Normal 3.5-7.2 [facility] Comment on above: Performed By: #### T 7, URIC, TSH, CMP, LIPID #### [facility] [address] [place] [address] Dr. Ayush Sorto VITAMIN D 25 OHon 01-22-2023 VIT D 25-OH 72.7 ng/mL Normal [facility] Comment on above: Performed By: #### V ITAD, PSASC #### [facility] [address] [place] [address] Dr. Ayush Sorto VIT D RANGES SEE BELOW Normal [facility] Comment on above: Result Comment: <20 ng/mL Vit D deficient 20 - <30 ng/mL Vit D insufficient 30 - 100 ng/mL Vit D sufficient >100 ng/mL Potential Toxicity Performed By: #### V ITAD, PSASC #### [facility] [address] [place] [address] Dr. Ayush Sorto PROF CHEM 8 (BAS METB)on Anion gap [Moles/Vol] 10.1 mmol/L Normal [facility] Comment on above: Performed By: #### T 7, URIC, TSH, CMP, LIPID #### [facility] [address] [place] [address] Dr. Ayush Sorto Calcium [Mass/Vol] 9.3 mg/dL Normal 8.5-10.1 [facility] Comment on above: Performed By: #### T 7, URIC, TSH, CMP, LIPID #### [facility] [address] [place] [address] Dr. Ayush Sorto Chloride [Moles/Vol] 102 mmol/L Normal 98-107 [facility] Comment on above: Performed By: #### T 7, URIC, TSH, CMP, LIPID #### [facility] [address] [place] [address] Dr. Ayush Sorto CO2 [Moles/Vol] 31.8 mmol/L Normal 21.0-32.0 [facility] Comment on above: Performed By: #### T 7, URIC, TSH, CMP, LIPID #### [facility] [address] [place] [address] Dr. Ayush Sorto Creatinine [Mass/Vol] 1.03 mg/dL Normal 0.70-1.30 [facility] Comment on above: Performed By: #### T 7, URIC, TSH, CMP, LIPID #### [facility] [address] [place] [address] Dr. Ayush Sorto EGFR-AF SAMOAN >60 Normal >=60 [facility] Comment on above: Performed By: #### T 7, URIC, TSH, CMP, LIPID #### [facility] [address] [place] [address] Dr. Ayush Sorto EGFR-NON AF SAMOAN >60 Normal >=60 [facility] Comment on above: Performed By: #### T 7, URIC, TSH, CMP, LIPID #### [facility] [address] [place] [address] Dr. Ayush Sorto Glucose [Mass/Vol] 121 mg/dL Critically high 74-106 [facility] Comment on above: Performed By: #### T 7, URIC, TSH, CMP, LIPID #### [facility] [address] [address] [address] Ayush Sorto Potassium [Moles/Vol] 4.9 mmol/L Normal 3.5-5.1 [facility] Comment on above: Performed By: #### T 7, URIC, TSH, CMP, LIPID #### [facility] [address] [address] [address] Ayush Sorto Sodium [Moles/Vol] 139 mmol/L Normal 136-145 [facility] Comment on above: Performed By: #### T 7, URIC, TSH, CMP, LIPID #### [facility] [address] [place] [address] Dr. Ayush Sorto Urea nitrogen [Mass/Vol] 15.0 mg/dL Normal 7.0-18.0 [facility] Comment on above: Performed By: #### T 7, URIC, TSH, CMP, LIPID #### [facility] [address] [place] [address] Dr. Ayush Sorto Urea nitrogen/Creatinine [Mass ratio] 14.6 mg/mg Normal [facility] Comment on above: Performed By: #### T 7, URIC, TSH, CMP, LIPID #### [facility] [address] [place] [address] Dr. Ayush Sorto ECHOCARDIO M/2D COMPLETEon 1 11-24-2021 ECHOCARDIO M/2D COMPLETE Patient: REECE HOGUE Exam Date: 09/24/2022 : 1960 Gender:M Ordering : RENU ZARCO [facility] [place] Admission #: [id number] Family : DR KACY JACOBSON . Order #: [id number] CLICK HERE TO VIEW EXAM ECHOCARDIOGRAM REPORT [...] M.D. on 09/24/2022 at 16:24 Normal [facility] CBC AUTO DIFFon 09-10-2022 BASO # 0.1 103/ul Normal 0.0-0.1 [facility] Comment on above: Performed By: #### C BC #### [facility] Laboratory [address] [address] [address] Ayush Sorto Basophils/100 WBC (Bld) 0.8 % Normal 0.2-2.0 [facility] Comment on above: Performed By: #### C BC #### [facility] [address] [address] [address] Ayush Sorto EO # 0.1 103/ul Normal 0.0-0.7 [facility] Comment on above: Performed By: #### C BC #### [facility] [address] [place] [address] Dr. Ayush Sorto Eosinophils/100 WBC (Bld) 1.3 % Normal 0.9-7.0 [facility] Comment on above: Performed By: #### C BC #### [facility] [address] [place] [address] Dr. Ayush Sorto Erythrocyte distribution width (RBC) [Ratio] 12.8 % Normal 11.0-15.0 [facility] Comment on above: Performed By: #### C BC #### [facility] [address] [place] [address] Dr. Ayush Sorto Hematocrit (Bld) [Volume fraction] 48.5 % Normal 42.0-54.0 [facility] Comment on above: Performed By: #### C BC #### [facility] [address] [place] [address] Dr. Ayush Sorto Hemoglobin (Bld) [Mass/Vol] 16.2 g/dL Normal 14.0-18.0 [facility] Comment on above: Performed By: #### C BC #### [facility] [address] [place] [address] Dr. Ayush Sorto IG # 0.01 10e3/ul Normal 0.00-0.03 [facility] Comment on above: Performed By: #### C BC #### [facility] [address] [place] [address] Dr. Ayush Sorto IG % 0.2 % Normal 0.0-0.5 [facility] Comment on above: Performed By: #### C BC #### [facility] [address] [place] [address] Dr. Ayush Sorto LYMPH # 1.0 103/ul Critically low 1.2-3.8 [facility] Comment on above: Performed By: #### C BC #### [facility] [address] [place] [address] Dr. Ayush Sorto Lymphocytes/100 WBC (Bld) 15.6 % Critically low 20.5-60.0 [facility] Comment on above: Performed By: #### C BC #### [facility] [address] [place] [address] Dr. Ayush Sorto MANUAL DIFF REQ NO Normal [facility] Comment on above: Performed By: #### C BC #### [facility] [address] [place] [address] Dr. Ayush Sorto MCH (RBC) [Entitic mass] 30.5 pg Normal 25.9-34.0 [facility] Comment on above: Performed By: #### C BC #### [facility] [address] [place] [address] Dr. Ayush Sorto MCHC (RBC) [Mass/Vol] 33.4 g/dL Normal 29.9-35.2 [facility] Comment on above: Performed By: #### C BC #### [facility] [address] [place] [address] Dr. Ayush Sorto MCV (RBC) [Entitic vol] 91.3 fL Normal 80.0-94.0 [facility] Comment on above: Performed By: #### C BC #### [facility] [address] [place] [address] Dr. Ayush Sorto MONO # 0.6 103/ul Normal 0.3-0.8 [facility] Comment on above: Performed By: #### C BC #### [facility] [address] [place] [address] Dr. Ayush Sorto Monocytes/100 WBC (Bld) 9.2 % Normal 1.7-12.0 [facility] Comment on above: Performed By: #### C BC #### [facility] [address] [place] [address] Dr. Ayush Sorto NEUT # 4.5 103/ul Normal 1.4-6.5 [facility] Comment on above: Performed By: #### C BC #### [facility] [address] [place] [address] Dr. Ayush Sorto Neutrophils/100 WBC (Bld) 72.9 % Normal 43.0-75.0 [facility] Comment on above: Performed By: #### C BC #### [facility] [address] [address] [address] Ayush Sorto Platelet mean volume (Bld) [Entitic vol] 8.9 fL Critically low 9.5-13.5 [facility] Comment on above: Performed By: #### C BC #### [facility] [address] [address] [address] Ayush Sorto PLT 226 103/ul Normal 150-450 [facility] Comment on above: Performed By: #### C BC #### [facility] [address] [address] [address] Ayush Sorto RBC 5.31 106/ul Normal 4.70-6.10 [facility] Comment on above: Performed By: #### C BC #### [facility] [address] [place] [address] Dr. Ayush Sorto WBC 6.2 103/ul Normal 4.0-11.0 [facility] Comment on above: Performed By: #### C BC #### [facility] [address] [place] [address] Dr. Ayush Sorto LIPID PROFILEon 09-10-2022 CHOL-HDL RATIO NORM SEE BELOW Normal [facility] Comment on above: Result Comment: 3.3 - 4.4 LOW RISK 4.4 - 7.1 AVERAGE RISK 7.1 - 11.0 MODERATE RISK >11.0 HIGH RISK Performed By: #### T 7, URIC, TSH, CMP, LIPID #### [facility] [address] [place] [address] Dr. Ayush Sorto Cholesterol [Mass/Vol] 206 mg/dL Critically high <=200 [facility] Comment on above: Performed By: #### T 7, URIC, TSH, CMP, LIPID #### [facility] [address] [place] [address] Dr. Ayush Sorto Cholesterol in HDL [Mass/Vol] 73 mg/dL Critically high 40-60 [facility] Comment on above: Performed By: #### T 7, URIC, TSH, CMP, LIPID #### [facility] [address] [place] [address] Dr. Ayush Sorto Cholesterol in LDL [Mass/Vol] 123.2 mg/dL Normal [facility] Comment on above: Performed By: #### T 7, URIC, TSH, CMP, LIPID #### [facility] [address] [place] [address] Dr. Ayush Sorto Cholesterol.total/C holesterol in HDL [Mass ratio] 2.8 {ratio} Normal [facility] Comment on above: Performed By: #### T 7, URIC, TSH, CMP, LIPID #### [facility] [address] [place] [address] Dr. Ayush Sorto HDL NORMAL > or = 60 mg/dl - LO W CARDIOVASCULAR RISK <40 mg/dl - HIGH CARDIOVASCULAR RISK Normal [facility] Comment on above: Performed By: #### T 7, URIC, TSH, CMP, LIPID #### [facility] [address] [place] [address] Dr. Ayush Sorto LDL CALC NORMAL SEE BELOW Normal [facility] Comment on above: Result Comment: <100 mg/dl OPTIMAL 100 - 129 mg/dl NEAR OR ABOVE OPTIMAL 130 - 159 mg/dl BORDERLINE HIGH 160 - 189 mg/dl HIGH >190 mg/dl VERY HIGH Performed By: #### T 7, URIC, TSH, CMP, LIPID #### [facility] [address] [place] [address] Dr. Ayush Sorto Triglyceride [Mass/Vol] 49 mg/dL Normal <=150 [facility] Comment on above: Performed By: #### T 7, URIC, TSH, CMP, LIPID #### [facility] [address] [place] [address] Dr. Ayush Sorto VLDL CALC 9.8 mg/dL Normal [facility] Comment on above: Performed By: #### T 7, URIC, TSH, CMP, LIPID #### [facility] [address] [place] [address] Dr. Ayush Sorto PROF 14(COMP METB)on 022 Albumin [Mass/Vol] 4.0 g/dL Normal 3.4-5.0 [facility] Comment on above: Performed By: #### T 7, URIC, TSH, CMP, LIPID #### [facility] [address] [address] [address] Ayush Sorto Albumin/Globulin [Mass ratio] 1.2 {ratio} Normal [facility] Comment on above: Performed By: #### T 7, URIC, TSH, CMP, LIPID #### [facility] [address] [address] [address] Ayush Sorto ALP [Catalytic activity/Vol] 83 U/L Normal 46-116 [facility] Comment on above: Performed By: #### T 7, URIC, TSH, CMP, LIPID #### [facility] [address] [address] [address] Ayush Sorto ALT [Catalytic activity/Vol] 35 U/L Normal 16-63 [facility] Comment on above: Performed By: #### T 7, URIC, TSH, CMP, LIPID #### [facility] [address] [place] [address] Dr. Ayush Sorto Anion gap [Moles/Vol] 9.0 mmol/L Normal [facility] Comment on above: Performed By: #### T 7, URIC, TSH, CMP, LIPID #### [facility] [address] [address] [address] Ayush Sorto AST [Catalytic activity/Vol] 26 U/L Normal 15-37 [facility] Comment on above: Performed By: #### T 7, URIC, TSH, CMP, LIPID #### [facility] [address] [address] [address] Ayush Sorto Bilirubin [Mass/Vol] 1.0 mg/dL Normal 0.2-1.0 [facility] Comment on above: Performed By: #### T 7, URIC, TSH, CMP, LIPID #### [facility] [address] [address] [address] Ayush Sorto Calcium [Mass/Vol] 9.5 mg/dL Normal 8.5-10.1 [facility] Comment on above: Performed By: #### T 7, URIC, TSH, CMP, LIPID #### [facility] [address] [address] [address] Ayush Sorto Chloride [Moles/Vol] 105 mmol/L Normal 98-107 [facility] Comment on above: Performed By: #### T 7, URIC, TSH, CMP, LIPID #### [facility] [address] [place] [address] Dr. Ayush Sorto CO2 [Moles/Vol] 27.7 mmol/L Normal 21.0-32.0 [facility] Comment on above: Performed By: #### T 7, URIC, TSH, CMP, LIPID #### [facility] [address] [address] [address] Ayush Sorto Creatinine [Mass/Vol] 0.90 mg/dL Normal 0.70-1.30 [facility] Comment on above: Performed By: #### T 7, URIC, TSH, CMP, LIPID #### [facility] [address] [place] [address] Dr. Ayush Sorto EGFR-AF SAMOAN >60 Normal >=60 [facility] Comment on above: Performed By: #### T 7, URIC, TSH, CMP, LIPID #### [facility] [address] [place] [address] Dr. Ayush Sorto EGFR-NON AF SAMOAN >60 Normal >=60 [facility] Comment on above: Performed By: #### T 7, URIC, TSH, CMP, LIPID #### [facility] [address] [place] [address] Dr. Ayush Sorto Globulin (S) [Mass/Vol] 3.3 g/dL Normal [facility] Comment on above: Performed By: #### T 7, URIC, TSH, CMP, LIPID #### [facility] [address] [place] [address] Dr. Ayush Sorto Glucose [Mass/Vol] 105 mg/dL Normal 74-106 [facility] Comment on above: Performed By: #### T 7, URIC, TSH, CMP, LIPID #### [facility] [address] [place] [address] Dr. Ayush Sorto Potassium [Moles/Vol] 4.7 mmol/L Normal 3.5-5.1 [facility] Comment on above: Performed By: #### T 7, URIC, TSH, CMP, LIPID #### [facility] [address] [address] [address] Ayush Sorto Protein [Mass/Vol] 7.3 g/dL Normal 6.4-8.2 [facility] Comment on above: Performed By: #### T 7, URIC, TSH, CMP, LIPID #### [facility] [address] [address] [address] Ayush Sorto Sodium [Moles/Vol] 137 mmol/L Normal 136-145 [facility] Comment on above: Performed By: #### T 7, URIC, TSH, CMP, LIPID #### [facility] [address] [address] [address] Ayush Sorto Urea nitrogen [Mass/Vol] 19.0 mg/dL Critically high 7.0-18.0 [facility] Comment on above: Performed By: #### T 7, URIC, TSH, CMP, LIPID #### [facility] [address] [address] [address] Ayush Sorto Urea nitrogen/Creatinine [Mass ratio] 21.1 mg/mg Normal [facility] Comment on above: Performed By: #### T 7, URIC, TSH, CMP, LIPID #### [facility] [address] [address] [address] Ayush Sorto BASIC METABOLIC PANELon 10-2 Calcium mass conc 9.3 mg/dL Normal 8.6-10.[address] [facility] Comment on above: Order Comment: No: D o not add to previous draw Performed By: #### 0 0121, 96419, 38876 ####[facility] [facility] [place] [address], [place] Chloride molar conc 102 mmol/L Normal 98-[address] [facility] Comment on above: Order Comment: No: D o not add to previous draw Performed By: #### 0 0121, 18781, 12617 ####[facility] [place] [address], [place] CO2 molar conc 27 mmol/L Normal 21-[address] [facility] Comment on above: Order Comment: No: D o not add to previous draw Performed By: #### 0 0121, 00234, 63345 ####[facility] [place] [address], [facility] Creatinine mass conc 0.73 mg/dL Normal 0.70-1.[address] [facility] Comment on above: Order Comment: No: D o not add to previous draw Performed By: #### 0 0121, 99684, 90798 ####[facility] [place] [address], [facility] GFR/1.73 sq M predicted among blacks MDRD vol rate/area (S/P/Bld) mL/min/{1.73_m2} Normal >[address] [facility] Comment on above: Order Comment: No: D o not add to previous draw Performed By: #### 0 0121, 17564, 24346 ####[facility] [place] [address], [facility] GFR/1.73 sq M predicted among non-blacks MDRD vol rate/area (S/P/Bld) mL/min/{1.73_m2} Normal >[address] [facility] Comment on above: Order Comment: No: D o not add to previous draw Performed By: #### 0 0121, 20060, 46362 ####[address] [place] [address], [facility] Glucose mass conc 109 mg/dL High 70-[address] [facility] Comment on above: Order Comment: No: D o not add to previous draw Performed By: #### 0 0121, 99394, 90291 ####[address] [place] [address], [facility] Potassium molar conc 4.1 mmol/L Normal 3.5-5.[address] [facility] Comment on above: Order Comment: No: D o not add to previous draw Performed By: #### 0 0121, 70561, 65540 ####[facility] Sodium molar conc 136 mmol/L Normal 136-[address] [facility] Comment on above: Order Comment: No: D o not add to previous draw Performed By: #### 0 0121, 08273, 34952 ####[facility] Urea nitrogen mass conc 10 mg/dL Normal 7-[address] [facility] Comment on above: Order Comment: No: D o not add to previous draw Performed By: #### 0 0121, 65690, 91604 ####[facility] [facility] CBC COMPLETE BLOOD COUNTon Erythrocyte distribution width Auto Ratio (RBC) 12.8 % Normal 11.5-15.[address] [facility] Comment on above: Order Comment: No: D o not add to previous draw Performed By: #### 0 0121, 03645, 10278 ####[facility] [facility] Hematocrit Auto Volume Fraction (Bld) 45.7 % Normal 39.0-50.[address] [facility] Comment on above: Order Comment: No: D o not add to previous draw Performed By: #### 0 0121, 92038, 89386 ####[facility] [place] [address], [facility] Hemoglobin mass conc (Bld) 15.6 g/dL Normal 13.0-17.[address] [facility] Comment on above: Order Comment: No: D o not add to previous draw Performed By: #### 0 0121, 82341, 60475 ####[facility] [place] [address], [facility] MCH Auto Entitic mass (RBC) 30.4 pg Normal 27.0-33.[address] [facility] Comment on above: Order Comment: No: D o not add to previous draw Performed By: #### 0 0121, 75973, 87141 ####[facility] [facility] MCHC Auto mass conc (RBC) 34.1 g/dL Normal 32.0-35.[address] [facility] Comment on above: Order Comment: No: D o not add to previous draw Performed By: #### 0 0121, 79297, 03807 ####[facility] [facility].[address] MCV Auto Entitic volume (RBC) 89.1 fL Normal 82.0-98.[address] [facility] Comment on above: Order Comment: No: D o not add to previous draw Performed By: #### 0 0121, 72802, 33346 ####[address] [facility].[address] Nucleated RBC/100 WBC Ratio (Bld) 0 % Normal 0-[address] [facility] Comment on above: Order Comment: No: D o not add to previous draw Performed By: #### 0 0121, 87088, 38361 ####[facility] [facility].[address] PLAT CNT 218 10*3/uL Normal 150-[address] [facility] Comment on above: Order Comment: No: D o not add to previous draw Performed By: #### 0 0121, 22520, 73486 ####[facility] [facility] RBC Auto #/vol (Bld) 5.13 10*6/uL Normal 4.20-5.[address] [facility] Comment on above: Order Comment: No: D o not add to previous draw Performed By: #### 0 0121, 78836, 10048 ####[facility] [facility].[address] WBC Auto #/vol (Bld) 6.96 10*3/uL Normal 4.00-10.[address] [facility] Comment on above: Order Comment: No: D o not add to previous draw Performed By: #### 0 0121, 65506, 80725 ####[facility] Cardiovascular Lab Reporton 09-14-2018 Cardiovascular Lab Report [facility]: [id number] Physician: Lizette Montano M.D.Medicine Service Date: 09/13/2018Division of Birthdate: 1960Cardiology Room #: 3CD [id number] CardiovascularServicesUniversi [facility] HospitalFoaqddxMbaadz[address], [place] [address]Nmidt Fax Cardiovascular Laboratory ReportPROCEDURE: Transesophageal echocardiogram and cardioversion.INDICATION: Atrial fibrillation.FELLOW: Tanya Botello M.D.PROCEDURE IN DETAIL: An informed consent was obtained from the patientafter explaining indications, risks, and benefits, and alternatives. Thepatient understood and agreed and signed the consent form. The patient wasbrought to the optical laboratory technician and MOJGAN was performed under conscious sedation. Thepatient obtained a total of 10 mg of Versed and 100 mcg of fentanyl duringthe procedure. The transesophageal echocardiogram did not show anythrombus in the left atrial appendage. [facility]. After the transesophageal echocardiogram, synchronized biphasiccardioversion was done with 300 joules of energy. The patient successfullyconverted to sinus rhythm as evidenced by the EKG done postprocedure. Nocomplications throughout the procedure.Electronically Signed by:Lizette Haines M.D. 09/19/2018 08:34 P Lizette Haines M.D. I was present for the entire procedure. Date Dict: 09/13/2018/11:49 A/Al Brownlee Trans: 09/14/2018 06:55 A/Marguerite_JN:[id number]: Kacy Jacobson M.D. [id number] [facility] [place] [address] Yury Funez M.D. [address] [place] [address] [place], [place] [id number] Normal [facility] APTTon 09-13-2018 aPTT Coag time (Bld) 86.4 s Critically high 25.0-35.[address] [facility] Comment on above: Order Comment: [...] PRESENCEOF HEPARIN. Performed By: #### 0 0121, 07764, 45505 ####[facility] [facility].[address] aPTT Coag time (Bld) 41.4 s High 25.0-35.[address] [facility] Comment on above: Result Comment: [...] THIS PURPOSE. Performed By: #### 0 0121, 32826, 09808 ####[facility] UFH HEPARIN ASSAYon 09-13-20 18 UNFRACTIONATED HEPARIN 0.64 IU/mL Normal 0.30-0.[address] [facility] Comment on above: Result Comment: [place] roxaban and Apixaban will interfere with the anti Xa assay used tomonitor UFH and LMWH. Performed By: #### 0 0121, 93327, 42798 ####[facility] [place] [address], [facility] UNFRACTIONATED HEPARIN 0.25 IU/mL Low 0.30-0.[address] [facility] Comment on above: Result Comment: [place] roxaban and Apixaban will interfere with the anti Xa assay used tomonitor UFH and LMWH. Performed By: #### 0 0121, 05396, 64272 ####[facility] [place] [address], [facility] BASIC METABOLIC PANELon 10-2 Calcium mass conc 8.6 mg/dL Normal 8.6-10.[address] [facility] Comment on above: Order Comment: No: D o not add to previous draw Performed By: #### 0 0121, 65709, 26991 ####[facility] [place] [address], [facility] Chloride molar conc 106 mmol/L Normal 98-[address] [facility] Comment on above: Order Comment: No: D o not add to previous draw Performed By: #### 0 0121, 84675, 31684 ####[facility] [place] [address], [facility] CO2 molar conc 25 mmol/L Normal 21-[address] [facility] Comment on above: Order Comment: No: D o not add to previous draw Performed By: #### 0 0121, 32639, 50614 ####[facility] [place] [address], [facility] Creatinine mass conc 0.64 mg/dL Low 0.70-1.[address] [facility] Comment on above: Order Comment: No: D o not add to previous draw Performed By: #### 0 0121, 84905, 10868 ####[facility] [place] [address], [facility] GFR/1.73 sq M predicted among blacks MDRD vol rate/area (S/P/Bld) mL/min/{1.73_m2} Normal >[address] [facility] Comment on above: Order Comment: No: D o not add to previous draw Performed By: #### 0 0121, 62334, 98886 ####[facility] [place] [address], [facility] GFR/1.73 sq M predicted among non-blacks MDRD vol rate/area (S/P/Bld) mL/min/{1.73_m2} Normal >[address] [facility] Comment on above: Order Comment: No: D o not add to previous draw Performed By: #### 0 0121, 51884, 63386 ####[facility] [place] [address], [facility] Glucose mass conc 100 mg/dL Normal 70-[address] [facility] Comment on above: Order Comment: No: D o not add to previous draw Performed By: #### 0 0121, 86059, 31742 ####[facility] [place] [address], [facility] Potassium molar conc 4.0 mmol/L Normal 3.5-5.[address] [facility] Comment on above: Order Comment: No: D o not add to previous draw Performed By: #### 0 0121, 72643, 60559 ####[facility] [address], [facility] Sodium molar conc 137 mmol/L Normal 136-[address] [facility] Comment on above: Order Comment: No: D o not add to previous draw Performed By: #### 0 0121, 08441, 56807 ####[facility] [address], [facility] Urea nitrogen mass conc 14 mg/dL Normal 7-[address] [facility] Comment on above: Order Comment: No: D o not add to previous draw Performed By: #### 0 0121, 03661, 73870 ####[facility] [facility] CBC W/DIFFon 09-12-2018 ABS BASOPHILS 0.0 10*3/uL Normal 0.0-0.[address] [facility] Comment on above: Order Comment: No: D o not add to previous draw Performed By: #### 0 0121, 29071, 16970 ####[facility] [place] [address], [facility] ABS IMM GRANS 0.0 10*3/uL Normal 0.0-0.[address] [facility] Comment on above: Order Comment: No: D o not add to previous draw Performed By: #### 0 0121, 51026, 37339 ####[facility].[address] ABS NEUTROPHILS 3.1 10*3/uL Normal 1.6-7.[address] [facility] Comment on above: Order Comment: No: D o not add to previous draw Performed By: #### 0 0121, 19858, 60686 ####[facility].[address] Basophils Auto #/vol (Bld) 0.7 % Normal 0.0-1.[address] [facility] Comment on above: Order Comment: No: D o not add to previous draw Performed By: #### 0 0121, 61831, 76335 ####[facility] [place] [address], [facility] Eosinophils Auto #/vol (Bld) 0.2 10*3/uL Normal 0.0-0.[address] [facility] Comment on above: Order Comment: No: D o not add to previous draw Performed By: #### 0 0121, 53338, 17876 ####[place] [address], [facility] Eosinophils/100 WBC Auto (Bld) 3.6 % Normal 0.0-6.[address] [facility] Comment on above: Order Comment: No: D o not add to previous draw Performed By: #### 0 0121, 31373, 51535 ####[facility] Erythrocyte distribution width Auto Ratio (RBC) 12.7 % Normal 11.5-15.[address] [facility] Comment on above: Order Comment: No: D o not add to previous draw Performed By: #### 0 0121, 80403, 98966 ####[facility] Hematocrit Auto Volume Fraction (Bld) 45.5 % Normal 39.0-50.[address] [facility] Comment on above: Order Comment: No: D o not add to previous draw Performed By: #### 0 0121, 25930, 98361 ####[facility] Hemoglobin mass conc (Bld) 15.2 g/dL Normal 13.0-17.[address] [facility] Comment on above: Order Comment: No: D o not add to previous draw Performed By: #### 0 0121, 83026, 16691 ####[facility] IMMATURE GRANS 0.4 % Normal 0.0-1.[address] [facility] Comment on above: Order Comment: No: D o not add to previous draw Performed By: #### 0 0121, 54816, 81114 ####[facility] Lymphocytes Auto #/vol (Bld) 1.5 10*3/uL Normal 1.2-4.[address] [facility] Comment on above: Order Comment: No: D o not add to previous draw Performed By: #### 0 0121, 15294, 22434 ####[facility] Lymphocytes/100 WBC Auto (Bld) 27.8 % Normal 20.0-45.[address] [facility] Comment on above: Order Comment: No: D o not add to previous draw Performed By: #### 0 0121, 76437, 55208 ####[facility] MCH Auto Entitic mass (RBC) 30.0 pg Normal 27.0-33.[address] [facility] Comment on above: Order Comment: No: D o not add to previous draw Performed By: #### 0 0121, 34052, 73751 ####[facility] MCHC Auto mass conc (RBC) 33.4 g/dL Normal 32.0-35.[address] [facility] Comment on above: Order Comment: No: D o not add to previous draw Performed By: #### 0 0121, 59369, 41837 ####[facility] MCV Auto Entitic volume (RBC) 89.9 fL Normal 82.0-98.[address] [facility] Comment on above: Order Comment: No: D o not add to previous draw Performed By: #### 0 0121, 00814, 67910 ####[facility] Monocytes Auto #/vol (Bld) 0.6 10*3/uL Normal 0.1-1.[address] [facility] Comment on above: Order Comment: No: D o not add to previous draw Performed By: #### 0 0121, 70791, 39590 ####[facility] MONOS 11.4 % Normal 5.0-12.[address] [facility] Comment on above: Order Comment: No: D o not add to previous draw Performed By: #### 0 0121, 51057, 05018 ####[facility] [address], [facility] Neutrophils/100 WBC Auto (Bld) 56.1 % Normal 40.0-72.[address] [facility] Comment on above: Order Comment: No: D o not add to previous draw Performed By: #### 0 0121, 84711, 08445 ####[facility] Nucleated RBC/100 WBC Ratio (Bld) 0 % Normal 0-[address] [facility] Comment on above: Order Comment: No: D o not add to previous draw Performed By: #### 0 0121, 00791, 58697 ####[facility] [facility].[address] PLAT CNT 188 10*3/uL Normal 150-[address] [facility] Comment on above: Order Comment: No: D o not add to previous draw Performed By: #### 0 0121, 32366, 36551 ####[facility] [facility].[address] RBC Auto #/vol (Bld) 5.06 10*6/uL Normal 4.20-5.[address] [facility] Comment on above: Order Comment: No: D o not add to previous draw Performed By: #### 0 0121, 65489, 61488 ####[facility] [facility] [place] [address], [facility] WBC Auto #/vol (Bld) 5.54 10*3/uL Normal 4.00-10.[address] [facility] Comment on above: Order Comment: No: D o not add to previous draw Performed By: #### 0 0121, 87558, 36844 ####[facility] [place] [address], [facility] MAGNESIUM BLOODon 09-12-2018 Magnesium mass conc 1.9 mg/dL Normal 1.9-2.[address] [facility] Comment on above: Order Comment: No: D o not add to previous draw Performed By: #### 0 0121, 75947, 05990 ####[facility] [facility].[address] UFH HEPARIN ASSAYon 09-12-20 UNFRACTIONATED HEPARIN 0.26 IU/mL Low 0.30-0.[address] [facility] Comment on above: Result Comment: [place] roxaban and Apixaban will interfere with the anti Xa assay used tomonitor UFH and LMWH. Performed By: #### 0 0121, 05011, 89011 ####[facility] [facility].[address] UNFRACTIONATED HEPARIN 0.72 IU/mL High 0.30-0.[address] [facility] Comment on above: Result Comment: Lisa roxaban and Apixaban will interfere with the anti Xa assay used tomonitor UFH and LMWH. Performed By: #### 0 0121, 73117, 01377 ####[facility] [facility].[address] UNFRACTIONATED HEPARIN 0.49 IU/mL Normal 0.30-0.[address] [facility] Comment on above: Result Comment: [place] roxaban and Apixaban will interfere with the anti Xa assay used tomonitor UFH and LMWH. Performed By: #### 0 0121, 26714, 33023 ####[facility] APTTon 09-11-2018 aPTT Coag time (Bld) 101.0 s Critically high 25.0-35.[address] [facility] Comment on above: Order Comment: [...] RNAT 615 Performed By: #### 0 0121, 50575, 43564 ####[facility] [address], [facility] BASIC METABOLIC PANELon 10-2 Calcium mass conc 8.9 mg/dL Normal 8.6-10.[address] [facility] Comment on above: Order Comment: No: D o not add to previous draw Performed By: #### 0 0121, 46077, 09454 ####[facility] [address], [facility] Chloride molar conc 106 mmol/L Normal 98-[address] [facility] Comment on above: Order Comment: No: D o not add to previous draw Performed By: #### 0 0121, 03042, 46905 ####[facility] [address], [facility] CO2 molar conc 25 mmol/L Normal 21-[address] [facility] Comment on above: Order Comment: No: D o not add to previous draw Performed By: #### 0 0121, 74212, 31055 ####[place] [address] [address], [facility] Creatinine mass conc 0.84 mg/dL Normal 0.70-1.[address] [facility] Comment on above: Order Comment: No: D o not add to previous draw Performed By: #### 0 0121, 92451, 60009 ####[facility] [address], [facility] GFR/1.73 sq M predicted among blacks MDRD vol rate/area (S/P/Bld) mL/min/{1.73_m2} Normal >[address] [facility] Comment on above: Order Comment: No: D o not add to previous draw Performed By: #### 0 0121, 32051, 84191 ####[facility] [facility] [place] [address], [facility] GFR/1.73 sq M predicted among non-blacks MDRD vol rate/area (S/P/Bld) mL/min/{1.73_m2} Normal >[address] [facility] Comment on above: Order Comment: No: D o not add to previous draw Performed By: #### 0 0121, 64639, 50464 ####[facility] Glucose mass conc 103 mg/dL High 70-[address] [facility] Comment on above: Order Comment: No: D o not add to previous draw Performed By: #### 0 0121, 01105, 17507 ####[facility] [facility].[address] Potassium molar conc 4.0 mmol/L Normal 3.5-5.[address] [facility] Comment on above: Order Comment: No: D o not add to previous draw Performed By: #### 0 0121, 70722, 19572 ####[facility] [facility].[address] Sodium molar conc 138 mmol/L Normal 136-[address] [facility] Comment on above: Order Comment: No: D o not add to previous draw Performed By: #### 0 0121, 87472, 56217 ####[facility] [facility].[address] Urea nitrogen mass conc 20 mg/dL Normal 7-[address] [facility] Comment on above: Order Comment: No: D o not add to previous draw Performed By: #### 0 0121, 38579, 57277 ####[facility] [place] [address], [facility] CBC W/DIFFon 09-11-2018 ABS BASOPHILS 0.0 10*3/uL Normal 0.0-0.[address] [facility] Comment on above: Order Comment: No: D o not add to previous draw Performed By: #### 5 0103 ####[facility] [place] [address], [facility] ABS IMM GRANS 0.0 10*3/uL Normal 0.0-0.[address] [facility] Comment on above: Order Comment: No: D o not add to previous draw Performed By: #### 5 0103 ####[facility] [place] [address], [facility] ABS NEUTROPHILS 3.1 10*3/uL Normal 1.6-7.[address] [facility] Comment on above: Order Comment: No: D o not add to previous draw Performed By: #### 5 0103 ####[facility] [place] [address], [facility] Basophils Auto #/vol (Bld) 0.8 % Normal 0.0-1.[address] [facility] Comment on above: Order Comment: No: D o not add to previous draw Performed By: #### 5 0103 ####[facility] [place] [address], [facility] Eosinophils Auto #/vol (Bld) 0.2 10*3/uL Normal 0.0-0.[address] [facility] Comment on above: Order Comment: No: D o not add to previous draw Performed By: #### 5 0103 ####[facility] [place] [address], [facility] Eosinophils/100 WBC Auto (Bld) 3.5 % Normal 0.0-6.[address] [facility] Comment on above: Order Comment: No: D o not add to previous draw Performed By: #### 5 0103 ####[facility] [place] [address], [facility] Erythrocyte distribution width Auto Ratio (RBC) 12.8 % Normal 11.5-15.[address] [facility] Comment on above: Order Comment: No: D o not add to previous draw Performed By: #### 5 0103 ####[facility] Hematocrit Auto Volume Fraction (Bld) 45.3 % Normal 39.0-50.[address] [facility] Comment on above: Order Comment: No: D o not add to previous draw Performed By: #### 5 0103 ####[facility] Hemoglobin mass conc (Bld) 15.3 g/dL Normal 13.0-17.[address] [facility] Comment on above: Order Comment: No: D o not add to previous draw Performed By: #### 5 0103 ####[facility] IMMATURE GRANS 0.4 % Normal 0.0-1.[address] [facility] Comment on above: Order Comment: No: D o not add to previous draw Performed By: #### 5 3 ####[facility] Lymphocytes Auto #/vol (Bld) 1.4 10*3/uL Normal 1.2-4.[address] [facility] Comment on above: Order Comment: No: D o not add to previous draw Performed By: #### 5 0103 ####[facility] Lymphocytes/100 WBC Auto (Bld) 25.9 % Normal 20.0-45.[address] [facility] Comment on above: Order Comment: No: D o not add to previous draw Performed By: #### 5 0103 ####[facility] MCH Auto Entitic mass (RBC) 30.5 pg Normal 27.0-33.[address] [facility] Comment on above: Order Comment: No: D o not add to previous draw Performed By: #### 5 3 ####[facility] MCHC Auto mass conc (RBC) 33.8 g/dL Normal 32.0-35.[address] [facility] Comment on above: Order Comment: No: D o not add to previous draw Performed By: #### 5 3 ####[facility] MCV Auto Entitic volume (RBC) 90.2 fL Normal 82.0-98.[address] [facility] Comment on above: Order Comment: No: D o not add to previous draw Performed By: #### 5 3 ####[facility] Monocytes Auto #/vol (Bld) 0.5 10*3/uL Normal 0.1-1.[address] [facility] Comment on above: Order Comment: No: D o not add to previous draw Performed By: #### 5 3 ####[facility] MONOS 10.2 % Normal 5.0-12.[address] [facility] Comment on above: Order Comment: No: D o not add to previous draw Performed By: #### 5 3 ####[facility] Neutrophils/100 WBC Auto (Bld) 59.2 % Normal 40.0-72.[address] [facility] Comment on above: Order Comment: No: D o not add to previous draw Performed By: #### 5 3 ####[facility] Nucleated RBC/100 WBC Ratio (Bld) 0 % Normal 0-[address] [facility] Comment on above: Order Comment: No: D o not add to previous draw Performed By: #### 5 0103 ####[facility] [facility] [address], [facility] PLAT CNT 226 10*3/uL Normal 150-[address] [facility] Comment on above: Order Comment: No: D o not add to previous draw Performed By: #### 5 0103 ####[facility] [place] [address], [facility] RBC Auto #/vol (Bld) 5.02 10*6/uL Normal 4.20-5.[address] [facility] Comment on above: Order Comment: No: D o not add to previous draw Performed By: #### 5 0103 ####[facility] [place] [address], [facility] WBC Auto #/vol (Bld) 5.21 10*3/uL Normal 4.00-10.[address] [facility] Comment on above: Order Comment: No: D o not add to previous draw Performed By: #### 5 3 ####[facility] [facility].[address] MAGNESIUM BLOODon 09-11-2018 Magnesium mass conc 1.8 mg/dL Low 1.9-2.[address] [facility] Comment on above: Order Comment: No: D o not add to previous draw Performed By: #### 0 0121, 05380, 72964 ####[facility] PHOSPHORUS BLOODon 8 Phosphate mass conc 3.0 mg/dL Normal 2.5-5.[address] [facility] Comment on above: Order Comment: No: D o not add to previous draw Performed By: #### 0 0121, 74942, 59488 ####[facility] PROTHROMBIN TIMEon 8 INR Coag RelTime (PPP) 1.01 {INR} Normal 0.91-1.16 [facility] Comment on above: Order Comment: [...] OF ACTION, CLINICALEFFECTIVENESS, AND OPTIMAL THERAPEUTIC RANGE. [id number]. Performed By: #### 0 0121, 82019, 32319 ####[facility] [facility].[address] Prothrombin time (PT) Coag time (PPP) 13.3 s Normal 12.3-14.8 [facility] Comment on above: Order Comment: No: D o not add to previous draw Result Comment: ALL RESULTS MUST BE INTERPRETED WITH RESPECT TO BLOOD DRAWING ARTIFACTOR DILUTION ERROR OF ANTICOAGULANT AT THE TIME OF SAMPLING. Performed By: #### 0 0121, 99461, 97647 ####[facility] [facility].[address] TROPONIN-Ion 09-11-2018 Troponin I.cardiac mass conc 0.00 ng/mL Normal 0.00-0.[address] [facility] Comment on above: Order Comment: No: D o not add to previous draw Result Comment: REFE RENCE RANGES: 0.00 - 0.14 ng/ml NEGATIVE 0.15 - 0.25 ng/ml INDETERMINATE > 0.25 ng/ml INDICATIVE OF AN M.I. Performed By: #### 3 5200 ####[facility] [facility].[address] UFH HEPARIN ASSAYon 09-11-20 18 UNFRACTIONATED HEPARIN 0.40 IU/mL Normal 0.30-0.[address] [facility] Comment on above: Result Comment: Lisa roxaban and Apixaban will interfere with the anti Xa assay used tomonitor UFH and LMWH. Performed By: #### 0 0121, 28452, 48627 ####[facility] [facility].[address] UNFRACTIONATED HEPARIN 0.39 IU/mL Normal 0.30-0.[address] [facility] Comment on above: Result Comment: [place] roxaban and Apixaban will interfere with the anti Xa assay used tomonitor UFH and LMWH. Performed By: #### 0 0121, 16064, 71093 ####[facility] [facility].[address] UNFRACTIONATED HEPARIN 0.70 IU/mL Normal 0.30-0.[address] [facility] Comment on above: Result Comment: [place] roxaban and Apixaban will interfere with the anti Xa assay used tomonitor UFH and LMWH. Performed By: #### 0 0121, 72209, 02455 ####[facility] [facility].[address] UNFRACTIONATED HEPARIN 0.49 IU/mL Normal 0.30-0.[address] [facility] Comment on above: Result Comment: Lisa roxaban and Apixaban will interfere with the anti Xa assay used tomonitor UFH and LMWH. Performed By: #### 3 0477 ####[facility] APTTon 09-10-2018 aPTT Coag time (Bld) 26.2 s Normal 25.0-35.[address] [facility] Comment on above: Result Comment: [...] THIS PURPOSE. Performed By: #### 5 6101, 85305 ####[facility] [place] [address] CBC W/DIFFon 09-10-2018 ABS BASOPHILS 0.0 10*3/uL Normal 0.0-0.[address] [facility] Comment on above: Order Comment: No: D o not add to previous draw Performed By: #### 5 0103 ####[address] ABS IMM GRANS 0.0 10*3/uL Normal 0.0-0.[address] [facility] Comment on above: Order Comment: No: D o not add to previous draw Performed By: #### 5 0103 ####[place] [address] ABS NEUTROPHILS 6.0 10*3/uL Normal 1.6-7.[address] [facility] Comment on above: Order Comment: No: D o not add to previous draw Performed By: #### 5 0103 ####[address] Basophils Auto #/vol (Bld) 0.4 % Normal 0.0-1.[address] [facility] Comment on above: Order Comment: No: D o not add to previous draw Performed By: #### 5 0103 ####[address] Eosinophils Auto #/vol (Bld) 0.1 10*3/uL Normal 0.0-0.[address] [facility] Comment on above: Order Comment: No: D o not add to previous draw Performed By: #### 5 0103 ####[facility] Eosinophils/100 WBC Auto (Bld) 1.1 % Normal 0.0-6.[address] [facility] Comment on above: Order Comment: No: D o not add to previous draw Performed By: #### 5 0103 ####[facility] Erythrocyte distribution width Auto Ratio (RBC) 12.5 % Normal 11.5-15.[address] [facility] Comment on above: Order Comment: No: D o not add to previous draw Performed By: #### 5 3 ####[facility] Hematocrit Auto Volume Fraction (Bld) 48.8 % Normal 39.0-50.[address] [facility] Comment on above: Order Comment: No: D o not add to previous draw Performed By: #### 5 3 ####[facility] Hemoglobin mass conc (Bld) 16.6 g/dL Normal 13.0-17.[address] [facility] Comment on above: Order Comment: No: D o not add to previous draw Performed By: #### 5 3 ####[facility] IMMATURE GRANS 0.3 % Normal 0.0-1.[address] [facility] Comment on above: Order Comment: No: D o not add to previous draw Performed By: #### 5 0103 ####[facility] Lymphocytes Auto #/vol (Bld) 1.2 10*3/uL Normal 1.2-4.[address] [facility] Comment on above: Order Comment: No: D o not add to previous draw Performed By: #### 5 0103 ####[facility] Lymphocytes/100 WBC Auto (Bld) 14.7 % Low 20.0-45.[address] [facility] Comment on above: Order Comment: No: D o not add to previous draw Performed By: #### 5 0103 ####[facility] MCH Auto Entitic mass (RBC) 30.3 pg Normal 27.0-33.[address] [facility] Comment on above: Order Comment: No: D o not add to previous draw Performed By: #### 5 0103 ####[facility] MCHC Auto mass conc (RBC) 34.0 g/dL Normal 32.0-35.[address] [facility] Comment on above: Order Comment: No: D o not add to previous draw Performed By: #### 5 3 ####[facility] MCV Auto Entitic volume (RBC) 89.2 fL Normal 82.0-98.[address] [facility] Comment on above: Order Comment: No: D o not add to previous draw Performed By: #### 5 0103 ####[facility] Monocytes Auto #/vol (Bld) 0.6 10*3/uL Normal 0.1-1.[address] [facility] Comment on above: Order Comment: No: D o not add to previous draw Performed By: #### 5 0103 ####[facility] MONOS 7.9 % Normal 5.0-12.[address] [facility] Comment on above: Order Comment: No: D o not add to previous draw Performed By: #### 5 0103 ####[facility] [address], [facility] Neutrophils/100 WBC Auto (Bld) 75.6 % High 40.0-72.[address] [facility] Comment on above: Order Comment: No: D o not add to previous draw Performed By: #### 5 0103 ####[facility] Nucleated RBC/100 WBC Ratio (Bld) 0 % Normal 0-[address] [facility] Comment on above: Order Comment: No: D o not add to previous draw Performed By: #### 5 0103 ####[facility] [facility].[address] PLAT CNT 243 10*3/uL Normal 150-[address] [facility] Comment on above: Order Comment: No: D o not add to previous draw Performed By: #### 5 0103 ####[facility] [facility].[address] RBC Auto #/vol (Bld) 5.47 10*6/uL Normal 4.20-5.[address] [facility] Comment on above: Order Comment: No: D o not add to previous draw Performed By: #### 5 3 ####[facility] [facility].[address] WBC Auto #/vol (Bld) 7.87 10*3/uL Normal 4.00-10.[address] [facility] Comment on above: Order Comment: No: D o not add to previous draw Performed By: #### 5 3 ####[facility] [facility].[address] COMP METABOLIC PANELon 09-10 Albumin mass conc 4.0 g/dL Normal 3.5-5.[address] [facility] Comment on above: Order Comment: No: D o not add to previous draw Performed By: #### 0 0121, 84278, 79051 ####[facility] [address], [facility] ALKALINE PHOSPH 59 IU/L Normal 34-[address] [facility] Comment on above: Order Comment: No: D o not add to previous draw Performed By: #### 0 0121, 43400, 28770 ####[facility] [address], [facility] ALT enzyme act/vol 22 U/L Normal 7-[address] [facility] Comment on above: Order Comment: No: D o not add to previous draw Performed By: #### 0 0121, 03587, 00433 ####[facility] [address], [facility] AST enzyme act/vol 20 U/L Normal 13-[address] [facility] [facility] Comment on above: Order Comment: No: D o not add to previous draw Performed By: #### 0 0121, [id number], 02016 ####[facility] [place] [address], [facility] Bilirubin mass conc 0.8 mg/dL Normal 0.3-1.[address] [facility] Comment on above: Order Comment: No: D o not add to previous draw Performed By: #### 0 0121, 38166, 02899 ####[facility] [place] [address], [facility] Calcium mass conc 8.8 mg/dL Normal 8.6-10.[address] [facility] Comment on above: Order Comment: No: D o not add to previous draw Performed By: #### 0 0121, 54294, 51258 ####[facility] [place] [address], [facility] Chloride molar conc 103 mmol/L Normal 98-[address] [facility] Comment on above: Order Comment: No: D o not add to previous draw Performed By: #### 0 0121, 04605, 07322 ####[facility] [place] [address], [facility] CO2 molar conc 28 mmol/L Normal 21-[address] [facility] Comment on above: Order Comment: No: D o not add to previous draw Performed By: #### 0 0121, 25059, 39915 ####[facility] [place] [address], [place] Creatinine mass conc 0.93 mg/dL Normal 0.70-1.[address] [facility] Comment on above: Order Comment: No: D o not add to previous draw Performed By: #### 0 0121, 31279, 66367 ####[facility] [place] [address], [place] GFR/1.73 sq M predicted among blacks MDRD vol rate/area (S/P/Bld) mL/min/{1.73_m2} Normal >[address] [facility] Comment on above: Order Comment: No: D o not add to previous draw Performed By: #### 0 0121, 36774, 37223 ####[facility] [place] [address], [facility] GFR/1.73 sq M predicted among non-blacks MDRD vol rate/area (S/P/Bld) mL/min/{1.73_m2} Normal >[address] [facility] Comment on above: Order Comment: No: D o not add to previous draw Performed By: #### 0 0121, 32804, 29820 ####[facility] [place] [address], [place] Glucose mass conc 94 mg/dL Normal 70-[address] [facility] Comment on above: Order Comment: No: D o not add to previous draw Performed By: #### 0 0121, 52414, 76297 ####[facility] [place] [address], [place] Potassium molar conc 4.0 mmol/L Normal 3.5-5.[address] [facility] Comment on above: Order Comment: No: D o not add to previous draw Performed By: #### 0 0121, 81416, 16427 ####[facility] Protein mass conc 6.8 g/dL Normal 6.0-8.[address] [facility] Comment on above: Order Comment: No: D o not add to previous draw Performed By: #### 0 0121, 09405, 00690 ####[facility] Sodium molar conc 140 mmol/L Normal 136-[address] [facility] Comment on above: Order Comment: No: D o not add to previous draw Performed By: #### 0 0121, 36385, 98618 ####[facility] Urea nitrogen mass conc 19 mg/dL Normal 7-[address] [facility] Comment on above: Order Comment: No: D o not add to previous draw Performed By: #### 0 0121, 43793, 39395 ####[facility] PROTHROMBIN TIMEon 10-19-201 8 INR Coag RelTime (PPP) 0.93 {INR} Normal 0.91-1.[address] [facility] Comment on above: Result Comment: ACCC P RECOMMENDED INR FOR WARFARIN THERAPY CONDITION INRPROPHYLAXIS OF VENOUS THROMBOSIS 2-3(HIGH-RISK SURGERY)TREATMENT OF VENOUS THROMBOSIS 2-3TREATMENT OF PULMONARY EMBOLISM 2-3PREVENTION OF SYSTEMIC EMBOLISM: 2-3 ACUTE MYOCARDIAL INFARCTION TISSUE HEART VALVES VALVULAR HEART DISEASE ATRIAL FIBRILLATION RECURRENT SYSTEMIC EMBOLISMMECHANICAL HEART VALVE 2.5-3.5 FROM: ORAL ANTICOAGULANTS. MECHANISM OF ACTION, CLINICALEFFECTIVENESS, AND OPTIMAL THERAPEUTIC RANGE. [id number];108:231S-246S. Performed By: #### 5 6101, 50785 ####[facility] Prothrombin time (PT) Coag time (PPP) 12.5 s Normal 12.3-14.8 [facility] Comment on above: Result Comment: ALL RESULTS MUST BE INTERPRETED WITH RESPECT TO BLOOD DRAWING ARTIFACTOR DILUTION ERROR OF ANTICOAGULANT AT THE TIME OF SAMPLING. Performed By: #### 5 6101, 74768 ####[place] [address] [facility].[address] TROPONIN-Ion 09-10-2018 Troponin I.cardiac mass conc 0.00 ng/mL Normal 0.00-0.04 [facility] Comment on above: Order Comment: No: D o not add to previous draw Result Comment: REFE RENCE RANGES: 0.00 - 0.14 ng/ml NEGATIVE 0.15 - 0.25 ng/ml INDETERMINATE > 0.25 ng/ml INDICATIVE OF AN M.I. Performed By: #### 3 5200 ####[place] [address] [facility].[address] Troponin I.cardiac mass conc 0.00 ng/mL Normal 0.00-0.04 [facility] Comment on above: Result Comment: REFE RENCE RANGES: 0.00 - 0.14 ng/ml NEGATIVE 0.15 - 0.25 ng/ml INDETERMINATE > 0.25 ng/ml INDICATIVE OF AN M.I. Performed By: #### 0 0121, 34373, 76607 ####[facility] [place] [address], [place] TSH3on 09-10-2018 TSH 3RD GENERATION 1.05 uIU/mL Normal 0.34-5.[address] [facility] Comment on above: Performed By: #### 0 0121, 36903, 97152 ####[facility] [address], [facility] Vital Signs Date Time Vital Sign Value Performing Clinician Faci lity 10-01-2023 08:20-0500 Body height 193.04 cm Sher Whitfield Other [facility] Other 10-01-2023 08:20-0500 Body mass index (BMI) [Ratio] 27.75 kg/m2 Sher Whitfield Other [facility] Other 10-01-2023 08:20-0500 Body weight 103.42 kg Sher Whitfield Other SCH[facility] Other 1960 23:00-0500 >na< Ellie Rodríguez Dept. of Dermato logy Encounters Encounter Date Encounter Type Care Provider Facility Start: 05-23-2024 End: 05-23-2024 ambulatory Gold Choi MD Facility: [facility] Start: 05-09-2024 End: 05-09-2024 ambulatory Gold Choi MD Facility: [facility] Start: 05-02-2024 End: 05-02-2024 ambulatory Gold Choi MD Facility: [facility] Start: 11-10-2023 End: 11-10-[address] [facility] Start: 10-01-2023 Office outpatient ne w 30 minutes Sher Whitfield [facility] [place] [facility] Start: 10-01-2023 End: 10-01-2023 ambulatory Sher Whitfield Facility:[facility] Start: 10-01-2023 End: 10-01-2023 ambulatory MD Kacy Jacobson Work Phone: [facility] Work Phone: Start: 10-01-2023 End: 10-01-2023 Patient encounter procedure MD Kacy Jacobson Work Phone: [facility] Work Phone: Start: 04-01-2023 End: 04-01-2023 ambulatory [facility] Start: 03-24-2023 Luke Reinoso Dept. of [...] abnormal findings DR KACY JACOBSON . [facility] Start: 01-22-2023 End: 01-23-2023 ambulatory [...] End: 09-14-2018 Patient encounter procedure DEFAULT PHYSICIAN Facility:[facility] Start: 09-10-2018 End: 09-14-2018 Evaluation and management of inpatient AVE LUEVANO Facility:[facility] Start: 08-25-2018 End: 08-26-2018 Patient encounter procedure DEFAULT PHYSICIAN Facility:[facility] Procedures Date Procedure Procedure Detail Performing [...] T 7, URIC, TSH, CMP, LIPID #### [facility] [address] [place] [address] Dr. Ayush Sorto Start: 09-13-2018 Buddhism of Cardi ac Rhythm, Single LIZETTE V MOUKARBEL Immunizations Immunization Date Immunization Notes Care Provider Taylor madrid 1960 pneumococcal conjuga te vaccine, 7 valent Ellie Rodríguez Dept. of Dermatology Payers Date Payer Category Payer Medicare 2023 Self-pay 2006 Private Health Insurance [id number] 1960 Unknown [id number] 1960 Unknown [id number] 2.16.8 40.1.333525.3.579.2.647 1959 Unknown [id number] 2.16.8 40.1.210702.3.579.2.647 1959 Unknown [id number] 2.16.8 40.1.880897.3.579.2.647 1959 Unknown [id number] 2.16.84 0.1.473460.3.579.2.593 1959 Unknown [id number] 2.16.84 0.1.832788.3.579.2.593 1959 Unknown [id number] 2.16.84 0.1.214498.3.579.2.593 1959 Unknown [id number] 2.16.84 0.1.850082.3.579.2.593 1959 Unknown [id number] 2.16.84 0.1.885965.3.579.2.593 1959 Unknown [id number] 2.16.84 0.1.961405.3.579.2.593 1959 Unknown [id number] 2.16.84 0.1.881416.3.579.2.593 1959 Unknown [id number] 2.16. 840.1.977751.3.579.2.356 1959 Unknown [id number] 2.16. 840.1.496893.3.579.2.356 1959 Unknown [id number] 2.16. 840.1.061977.3.579.2.356 1959 Unknown [id number] 2.16. 840.1.075640.3.579.2.196 1959 Unknown [id number] 2.16. 840.1.221752.3.579.2.196 1959 Unknown [id number] 2.16. 840.1.993364.3.579.2.196 Unknown Unknown [id number] 2.16.8 40.1.042837.3.579.2.531 Social History Date Type Detail Facility Start: 03-02-2023 Dept. of D ermatology Start: 1960 End: 1960 Sex Assigned At Male [facility] Sex Assigned At Sex Assigned At Bir [facility] Other Goals Date Patient Goal Desired Activity /State Clinical Notes 04-01-2023 to 11-10-2023 Note Date & Type Note Facility 11-10-2023 Note [facility] Electrophysiology Consult Note Reason for visit: afib [...] history was recently cardioverted by me at [facility] to SR . He states [...] rhonchi Cardiovascular Rat (more content not included)... [facility] 11-10-2023 Note Patient here for 6 m o follow up chronic afib. No recent labs or imaging. Denies chest pain, SOB, palpitations, lightheadedness/syncope, and bleeding on Xarelto. BP at home when checked averages around 120/80. Review of Systems Musculoskeletal: Positive for myalgias. All other systems reviewed and are negative. [facility] 10-01-2023 Evaluation note Encounter Date [...] Pain in left leg (ICD-10 - M79.605) [facility] Other [id number] Note-advised to [facility]ian [facility]-BP controlled -ct medications: lisinopril 10mg every day, toprol tartrate 75mg bid, xarelto 20mg, aldactone 25mg qdUnMer[facility] Health [facility]05-17-2023 Note [id number] 1 for htn, will ct xarelto -DCCV x3 with amio, still has afib controlled rate and known hx of slow VR int0 40bpm -surgical ablation was mentioned as an option for ablation vs PPM with AVN ablation, patient does not want to consider at this time -will have him follow up in [address] [facility] NotePatient here for 6 mo follow [...] myalgias. All other systems reviewed and are negative.[facility] 04-01-2023 NoteUT Electrophysiology Consult Note [...] history was recently cardioverted by me at [facility] to SR . He states [...] Hematologic/Lymphatic Hematologic/Lymphatic no swoll (more content not included)...[facility]/ADept. of Dermatology Evaluation noteNo assessment information available [facility] Work Phone: History general Narrative - Reported* Type Description Date Medical History heart disease Medical History melanoma Surgical History melanoma excision Hospitalization History see above SCHEDit Other reason for referral (narrative)* Name Reason [...] 2023 7:32am Hospital Course Note [id number] Admitted: 09/10/2018 Discharged: 09/14/2018 Date of : 1960 Physician: Primo Glaser MD DISCHARGE SUMMARYDISCHARGE ATTENDING PHYSICIAN: Primo Glaser [facility] PHYSICIAN: Dr. Jacobson at [phone].PRINCIPAL DIAGNOSIS: Atrial fibrillation/flutter, status post TEEconversion currently [...] DATE CREATED AUTHOR AUTHOR'S ORGANIZ ATION 03/25/2023 [facility] DATE CREATED AUTHOR AUTHOR'S ORGANIZ ATION 10/09/2023 [facility] DATE CREATED AUTHOR AUTHOR'S ORGANIZ ATION 11/18/2023 [facility] DATE CREATED AUTHOR AUTHOR'S ORGANIZ ATION 05/26/2024 [facility] Care Teams (unrecognized sec tion and [...] BE BASED ON THE PRIMARY CLINICAL RECORDS. [facility] [employer] [facility]. provides no warranty or guarantee of the accuracy or completeness of information in this document.
--- NOTE | 2024-09-21 08:04 | P.CN_ITS ---
Consult Note: HPI Data of Consult Patient: known to practice within the last 3 years Consult date: 05/02/24 Requesting Physician: Shannan Gautam NP Primary Care Provider: Ross Jacobson MD Consult Narrative Reason for consult: low back, bilateral lower extremity pain Narrative: 64yom who presents for evaluation. longstanding low back, bilateral lower extremity pain. worsened in past several months. used to walk long distances, now has significant trouble with ambulation. lumbar mri reviewed, significant for severe stenosis at l2-3, l3-4, l4-5. significant facet arthropathy at multiple lumbar levels. engaged in chiropractic therapy >6 weeks, without relief. uses advil. denies adverse med side effects. on xarelto, should avoid all NSAIDs. Previous bilateral L3-4 TFESI and L4-5 TFESI provided >80% improvement for 3 months. patient noticing over the last few weeks symptoms are returning to baseline. recently underwent repeat bilateral L4-5 TFESI with 90% improvement ongoing. pain today 0/10 increasing to 1/10. cc:: CC: Shannan Gautam NP Review of Systems ROS Status of ROS 10 or more systems reviewed and unremark able except as noted in history and below Musculoskeletal Denies: back pain PFSH PFSH Medical History Melanoma ?C43.9 - Malignant melanoma of skin, unspecified (ICD-10) Low back pain ?M54.50 - Low back pain, unspecified (ICD-10) Sleep apnea ?G47.30 - Sleep apnea, unspecified (ICD-10) Afib ?I48.91 - Unspecified atrial fibrillation (ICD-10) Surgical History H/O knee surgery ?Z98.890 - Other specified postprocedural states (ICD-10) Meds Home Medications and Allergies Home Medications ?Medication ?Instructions ?Recorded ?Confirmed ?Type lisinopril 10 mg tablet mg 05/02/24 History metoprolol tartrate 75 mg tablet mg 05/02/24 History multivitamin 1 tab PO DAILY 05/02/24 09/12/24 History omega 1-egu-cti-fish oil 1,000 mg 1 cap PO DAILY 05/02/24 09/12/24 History (120 mg-180 mg) capsule (Fish Oil) rivaroxaban 20 mg tablet (Xarelto) mg 05/02/24 History spironolactone 25 mg tablet mg 05/02/24 History Allergies Allergy/AdvReac Type Severity Reaction Status Date / Time No Known Drug Allergies Allergy Verified 09/12/24 09:22 Exam Narrative Exam Narrative: Psych-alert and oriented x 3. Attentive and appropriate, constitutionally normal, displays normal mood and affect per situation. There are no obvious deficits in memory, reasoning, or intellect.? Skin-no obvious rashes, bruising, erythema noted to the patient's area of pain.? Extremities- extremities are warm with minimal edema and palpable pulses. Lumbar-no tenderness to palpation noted in the lumbar spine and paraspinal musculature. Pain is not elicited with flexion, extension, and lateral rotation of the lumbar spine. Facet loading maneuvers are negative. Strength-noted to be unremarkable Sensory-no notable sensory deficits in the bilateral lower extremities to touch or pinprick in all dermatomal distributions Coordination remains intact.? Gait remains non-antalgic. Results Additional Findings Additional findings: If on a controlled substance or opioids, I have checked an [place] report on this patient and there are no aberrancies noted in the prescribing history.??If on a controlled substance or opioid a drug screen was completed and reviewed within the last year, and if there has not been a drug screen completed we ordered one today to monitor higher risk, state monitored pain medication use. As part of providing excellent, safe, comprehensive care, the following was completed at our patient's visit: 1. A medication reconciliation and review to ensure accurate knowledge of current/active medications, including asking our patients to inform us about any wygz-ryl-[id number] medications or herbal remedies/nutritional supplements/alternative remedies. 2. A review to specifically ensure our patients have had annual screening for screening for depression, screening for tobacco use, and screening for unhealthy alcohol use. For concerning screenings had a discussion with the patient, provided patient education, and recommended follow-up with primary care provider when appropriate. If patient noted with a risk of falling, they received education on strength, gait, and balance training to prevent future risk of falling. Assessment and Plan Assessment and Plan (1) Lumbar stenosis with neurogenic claudication: Plan 90% improvement ongoing from recent repeat bilateral L4-5 TFESI continue HEP as tolerated should not take NSAIDs, on xarelto f/u 3 months, sooner if needed
== END 2024-09-21 08:00 | disposition home or self-care (01) ==
LOC: PM 08:00
PROVIDERS: PCP Family Medicine; Visit Provider Nurse Practitioner
DX: M47.816 Spondylosis without myelopathy or radiculopathy, lumbar region (principal)
CPT/HCPCS: G0463

== ENCOUNTER 2024-11-02 08:29 | Outpatient (OUT) | payer OTHER, SELFPAY ==
--- OUTSIDE RECORDS SUMMARY | 2024-11-02 08:43 | XMS_ITS | CCD ---
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 Role Phone PHYSICIAN, DEFAULT Unavailable Unavailable PHYSICIAN, DEFAULT Unavailable Unavailable CHLOÉ, HANI Unavailable Unavailable YURY FUNEZ AM Unavailable Unavailable KACY JACOBSON Unavailable Unavailable RODOLFOPRIMO COLLAZO R Unavailable Unavailable [place] Unavailable Unavailable UNKNOWN, PROVIDER Unavailable Unavailable PHYSICIAN, [...] RENU Attending Unavailable HAROLDO, RENU Admitting Unavailable AHROLDO, RENU Consulting Unavailable HOY .DR WOODRUFF Primary [...] DR WOODRUFF Consulting Unavailable ZIEBER, DR JO rBody Consulting Unavailable Rodríguez, Ellie Unavailable Unavailable Luke Reinoso Unavailable Unavailable UNKNOWN, PCP Primary Care Unavailable Luke Reinoso Attending Unavailable UNKNOWN, UNKNOWN Referring Unavailable UNKNOWN, PCP Primary Care Unavailable Bedocs, Dr. Randy Paige Referring Unavail able Luke Reinoso Attending Unavailable UNKNOWN, PCP Primary Care Unavailable Jaimee Negrete Attending Unavailable Luke Reinoso Referring Unavailable MD Sher Whitfield Attending Provider [phone] MD Kacy Jacobson Primary Care Provider [phone] Sher Whitfield Unavailable Sher Whitfield Attending Unavailable Sher Whitfield Admitting Unavailable Kacy Jacobson Primary Care Unavailable KATHE DE DIOS Attending Unavailable RANDY CARRANZA Attending Unavailable Steph ENGEL, Gold Boles Attending Unavailable Steph ENGEL, Andjusto Boles Attending Unavailable Steph ENGEL, Gold Boles [...] Onset: 09-10-2022 Chronic 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; 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] Onset: 09-10-2018 Episodic [...] Range Facility Office Visiton 11-10-2023 Follow-up visit [id number] Susanna Hogue 1960 M Date Provider Department Center 11/10/2023 RANDY JOHNSTON BRITNEY [facility] Family History Problem Relation Age of Onset Heart attack Maternal Grandfather Family Status - Relation Status Age at Maternal Grandfather Level of Service:92796 [place] OFFICE/OUTPATIENT ESTABLISHED LOW MDM 20 MIN Normal [facility] Orders Onlyon 11-10-2023 Orders Only [id number] Susanna Hogeu naldo D 1960 M Date Provider Department Center 11/10/2023 CRISTINO AYALA Jesse Janelle Family History Problem Relation Age of Onset Heart attack Maternal Grandfather Family Status - Relation Status Age at Maternal Grandfather [facility] XR lumbar spine 6V w bending on 10-01-2023 XR lumbar spine 6V w bending [facility] [place] [address] XRay Report Signed Patient: Reece Hogue MR#: [id number] : 1960 Acct:[id number] Age/Sex: 63 / M ADM Date: 10/01/23 Loc: XD Room: Type: [facility] Attending Dr: Sher Whitfield MD Copies to: [...] Nila Christensen M.D.10/01/2023 12:35 PM Dictation Location: [place] [address] Transcribed By: [facility] 10/01/23 1235 Dictated By: Nila Christensen MD 10/01/23 1226 Signed By: 10/01/23 1235 [facility] Office Visiton 04-01-2023 Follow-up visit [id number] Susanna Hogue naldo Greenberg 1960 M Date Provider Department Center 04/01/2023 Daljit6-BOONERamonita KATHE ALEXANDREA Luis Family History Problem Relation Age of Onset Heart attack Maternal Grandfather Family Status - Relation Status Age at Maternal Grandfather Level of Service:70248 [place] OFFICE/OUTPATIENT ESTABLISHED MOD MDM 30-39 MIN Reason for Visit and Comments: Atrial Fibrillation [80] Hypertension [699256] Normal [facility] Dermatopathologyon 3 Dermatopathology Name: REECE HOGUE Pathologist: JAIMEE NEGRETE MD Date of Procedure: 02/24/2023 Date Received: 02/24/2023 Date Reported 02/25/2023 Submitting Physician: LUKE REINOSO MD, Location: [facility] Copy To/Referring/Attending: MD KAUR PERDOMO FINAL DIAGNOSIS 4 SLIDES, [facility], #[id number] (BX: 02/03/2023) SKIN, LEFT NASAL SIDEWALL, SHAVE [...] REPORT A. 4 SLIDES, [facility], #[id number] (BX: 02/03/2023): SPECIMEN Procedure: Biopsy, shave Specimen [...] ADDITIONAL FINDINGS Additional Findings: None ADDITIONAL TESTING Slide Machine Tender Blocks: Normal Block: None Tumor Block: A1 Electronically Signed Out By JAIMEE NEGRETE MD/MARISSA Diagnostic interpretation performed at 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 LENTIGO Specimens Submitted As: A: 4 SLIDES, [facility], #[id number] (BX: 02/03/2023) Gross Description: Received for consultation from [facility] are four slides labeled [id number] (BX: 02/03/2023) along with the corresponding pathology report. Slide/Block Description 4 SLIDES, [id number]. Keep Slides: N Slides Returned: N Personal Consult: N Normal [facility] Comment on above: Performed By: [...] JO RUSSELL Date: 2023-02-18 14:29 Normal [facility] INSULINon 01-23-2023 Insulin 7.9 uIU/mL Normal 2.6-24.9 [facility] Comment on above: Performed By: #### T 7, URIC, TSH, CMP, LIPID #### [facility] [address] [place] [address] [address] Ayush Sorto CBC AUTO DIFFon 01-22-2023 BASO # 0.0 103/ul Normal 0.0-0.1 [facility] Comment on above: Performed By: #### C BC #### [facility] [address] [address] [address] Ayush Sorto Basophils/100 WBC (Bld) 0.6 % Normal 0.2-2.0 [facility] Comment on above: Performed By: #### C BC #### [facility] [address] [place] [address] Dr. Ayush Sorto EO # 0.2 103/ul Normal 0.0-0.7 [facility] Comment on above: Performed By: #### C BC #### [facility] [address] [place] [address] Dr. Ayush Sorto Eosinophils/100 WBC (Bld) 2.3 % Normal 0.9-7.0 [facility] Comment on above: Performed By: #### C BC #### [facility] [address] [place] [address] Dr. Ayush Sorto Erythrocyte distribution width (RBC) [Ratio] 13.2 % Normal 11.0-15.0 [facility] Comment on above: Performed By: #### C BC #### [facility] [address] [place] [address] Dr. Ayush Sorto Hematocrit (Bld) [Volume fraction] 48.6 % Normal 42.0-54.0 [facility] Comment on above: Performed By: #### C BC #### [facility] [address] [place] [address] Dr. Ayush Sorto Hemoglobin (Bld) [Mass/Vol] 16.4 g/dL Normal 14.0-18.0 [facility] Comment on above: Performed By: #### C BC #### [facility] [address] [place] [address] Dr. Ayush Sorto IG # 0.02 10e3/ul Normal 0.00-0.03 [facility] Comment on above: Performed By: #### C BC #### [facility] [address] [place] [address] Dr. Ayush Sorto IG % 0.3 % Normal 0.0-0.5 [facility] Comment on above: Performed By: #### C BC #### [facility] [address] [place] [address] Dr. Ayush Sorto LYMPH # 1.6 103/ul Normal 1.2-3.8 [facility] Comment on above: Performed By: #### C BC #### [facility] [address] [place] [address] Dr. Ayush Sorto Lymphocytes/100 WBC (Bld) 24.7 % Normal 20.5-60.0 [facility] Comment on above: Performed By: #### C BC #### [facility] [address] [place] [address] Dr. Ayush Sorto MANUAL DIFF REQ NO Normal [facility] Comment on above: Performed By: #### C BC #### [facility] [address] [place] [address] Dr. Ayush Sorto MCH (RBC) [Entitic mass] 30.0 pg Normal 25.9-34.0 [facility] Comment on above: Performed By: #### C BC #### [facility] [address] [place] [address] Dr. Ayush Sorto MCHC (RBC) [Mass/Vol] 33.7 g/dL Normal 29.9-35.2 [facility] Comment on above: Performed By: #### C BC #### [facility] [address] [place] [address] Dr. Ayush Sorto MCV (RBC) [Entitic vol] 89.0 fL Normal 80.0-94.0 [facility] Comment on above: Performed By: #### C BC #### [facility] [address] [place] [address] Dr. Ayush Sorto MONO # 0.7 103/ul Normal 0.3-0.8 [facility] Comment on above: Performed By: #### C BC #### [facility] [address] [place] [address] Dr. Ayush Sorto Monocytes/100 WBC (Bld) 10.1 % Normal 1.7-12.0 [facility] Comment on above: Performed By: #### C BC #### [facility] [address] [place] [address] Dr. Ayush Sorto NEUT # 4.1 103/ul Normal 1.4-6.5 [facility] Comment on above: Performed By: #### C BC #### [facility] [address] [place] [address] Dr. Ayush Sorto Neutrophils/100 WBC (Bld) 62.0 % Normal 43.0-75.0 [facility] Comment on above: Performed By: #### C BC #### [facility] [address] [place] [address] Dr. Ayush Sorto Platelet mean volume (Bld) [Entitic vol] 8.6 fL Critically low 9.5-13.5 [facility] Comment on above: Performed By: #### C BC #### [facility] [address] [place] [address] Dr. Ayush Sorto PLT 248 103/ul Normal 150-450 [facility] Comment on above: Performed By: #### C BC #### [facility] [address] [place] [address] Dr. Ayush Sorto RBC 5.46 106/ul Normal 4.70-6.10 [facility] Comment on above: Performed By: #### C BC #### [facility] [address] [place] [address] Dr. Ayush Sorto WBC 6.6 103/ul Normal 4.0-11.0 [facility] Comment on above: Performed By: #### C BC #### [facility] [address] [place] [address] Dr. Ayush Sorto FREE THYROXINE INDEX T7on FTI 3.31 Normal 1.30-4.50 [facility] Comment on above: Performed By: #### T 7, URIC, TSH, CMP, LIPID #### [facility] [address] [place] [address] Dr. Ayush Sorto T3U 36.0 % Normal 33.0-40.0 [facility] Comment on above: Performed By: #### T 7, URIC, TSH, CMP, LIPID #### [facility] [address] [place] [address] Dr. Ayush Sorto T4 [Mass/Vol] 9.20 ug/dL Normal 4.50-12.10 [facility] Comment on above: Performed By: #### T 7, URIC, TSH, CMP, LIPID #### [facility] [address] [place] [address] Dr. Ayush Sorto GLYCOHEMOGLOBIN A1Con 2022 ADA RECOMMENDATION SEE BELOW Normal [facility] Comment on above: Result Comment: ADA RECOMMENDED LIMIT 4.0 - 6.0 ADA THERAPEUTIC TARGET < 7.0 ACTION SUGGESTED > 7.0 Performed By: #### T 7, URIC, TSH, CMP, LIPID #### [facility] [address] [address] [address] Ayush Sorto Glucose [Mass/Vol] 117 mg/dL Normal [facility] Comment on above: Performed By: #### T 7, URIC, TSH, CMP, LIPID #### [facility] [address] [address] [address] Ayush Sorto HbA1c (Bld) [Mass fraction] 5.7 % Normal 4.5-6.2 [facility] Comment on above: Performed By: #### T 7, URIC, TSH, CMP, LIPID #### [facility] [address] [address] [address] Ayush Sorto LIPID PROFILEon 01-22-2023 CHOL-HDL RATIO NORM SEE BELOW Normal [facility] Comment on above: Result Comment: 3.3 - 4.4 LOW RISK 4.4 - 7.1 AVERAGE RISK 7.1 - 11.0 MODERATE RISK >11.0 HIGH RISK Performed By: #### T 7, URIC, TSH, CMP, LIPID #### [facility] [address] [address] [address] Ayush Sorto Cholesterol [Mass/Vol] 216 mg/dL Critically high <=200 [facility] Comment on above: Performed By: #### T 7, URIC, TSH, CMP, LIPID #### [facility] [address] [address] [address] Ayush Sorto Cholesterol in HDL [Mass/Vol] 68 mg/dL Critically high 40-60 [facility] Comment on above: Performed By: #### T 7, URIC, TSH, CMP, LIPID #### [facility] [address] [address] [address] Ayush Sorto Cholesterol in LDL [Mass/Vol] 136.6 mg/dL Normal [facility] Comment on above: Performed By: #### T 7, URIC, TSH, CMP, LIPID #### [facility] [address] [address] [address] Ayush Sorto Cholesterol.total/C holesterol in HDL [Mass ratio] 3.2 {ratio} Normal [facility] Comment on above: Performed By: #### T 7, URIC, TSH, CMP, LIPID #### [facility] [address] [address] [address] Ayush Sorto HDL NORMAL > or = 60 mg/dl - LO W CARDIOVASCULAR RISK <40 mg/dl - HIGH CARDIOVASCULAR RISK Normal [facility] Comment on above: Performed By: #### T 7, URIC, TSH, CMP, LIPID #### [facility] [address] [place] [address] Dr. Ayush Sorto LDL CALC NORMAL SEE BELOW Normal [facility] Comment on above: Result Comment: <100 mg/dl OPTIMAL 100 - 129 mg/dl NEAR OR ABOVE OPTIMAL 130 - 159 mg/dl BORDERLINE HIGH 160 - 189 mg/dl HIGH >190 mg/dl VERY HIGH Performed By: #### T 7, URIC, TSH, CMP, LIPID #### [facility] [address] [place] [address] Dr. Ayush Sorto Triglyceride [Mass/Vol] 57 mg/dL Normal <=150 [facility] Comment on above: Performed By: #### T 7, URIC, TSH, CMP, LIPID #### [facility] [address] [place] [address] Dr. Ayush Sorto VLDL CALC 11.4 mg/dL Normal [facility] Comment on above: Performed By: #### T 7, URIC, TSH, CMP, LIPID #### [facility] [address] [place] [address] Dr. Ayush Sorto PROF 14(COMP METB)on 023 Albumin [Mass/Vol] 4.0 g/dL Normal 3.4-5.0 [facility] Comment on above: Performed By: #### T 7, URIC, TSH, CMP, LIPID #### [facility] [address] [place] [address] Dr. Ayush Sorto Albumin/Globulin [Mass ratio] 1.2 {ratio} Normal [facility] Comment on above: Performed By: #### T 7, URIC, TSH, CMP, LIPID #### [facility] [address] [place] [address] Dr. Ayush Sorto ALP [Catalytic activity/Vol] 85 U/L Normal 46-116 [facility] Comment on above: Performed By: #### T 7, URIC, TSH, CMP, LIPID #### [facility] [address] [address] [address] Ayush Sorto ALT [Catalytic activity/Vol] 28 U/L Normal 16-63 [facility] Comment on above: Performed By: #### T 7, URIC, TSH, CMP, LIPID #### [facility] [address] [address] [address] Ayush Sorto Anion gap [Moles/Vol] 12.9 mmol/L Normal [facility] Comment on above: Performed By: #### T 7, URIC, TSH, CMP, LIPID #### [facility] [address] [place] [address] Dr. Ayush Sorto AST [Catalytic activity/Vol] 23 U/L Normal 15-37 [facility] Comment on above: Performed By: #### T 7, URIC, TSH, CMP, LIPID #### [facility] [address] [place] [address] Dr. Ayush Sorto Bilirubin [Mass/Vol] 1.1 mg/dL Critically high 0.2-1.0 [facility] Comment on above: Performed By: #### T 7, URIC, TSH, CMP, LIPID #### [facility] [address] [place] [address] Dr. Ayush Sorto Calcium [Mass/Vol] 9.2 mg/dL Normal 8.5-10.1 [facility] Comment on above: Performed By: #### T 7, URIC, TSH, CMP, LIPID #### [facility] [address] [place] [address] Dr. Ayush Sorto Chloride [Moles/Vol] 103 mmol/L Normal 98-107 [facility] Comment on above: Performed By: #### T 7, URIC, TSH, CMP, LIPID #### [facility] [address] [place] [address] Dr. Ayush Sorto CO2 [Moles/Vol] 27.9 mmol/L Normal 21.0-32.0 [facility] Comment on above: Performed By: #### T 7, URIC, TSH, CMP, LIPID #### [facility] [address] [place] [address] Dr. Ayush Sorto Creatinine [Mass/Vol] 0.88 mg/dL Normal 0.70-1.30 [facility] Comment on above: Performed By: #### T 7, URIC, TSH, CMP, LIPID #### [facility] [address] [place] [address] Dr. Ayush Sorto EGFR-AF RWANDAN >60 Normal >=60 [facility] Comment on above: Performed By: #### T 7, URIC, TSH, CMP, LIPID #### [facility] [address] [place] [address] Dr. Ayush Sorto EGFR-NON AF RWANDAN >60 Normal >=60 [facility] Comment on above: Performed By: #### T 7, URIC, TSH, CMP, LIPID #### [facility] [address] [place] [address] Dr. Ayush Sorto Globulin (S) [Mass/Vol] 3.4 g/dL Normal [facility] Comment on above: Performed By: #### T 7, URIC, TSH, CMP, LIPID #### [facility] [address] [place] [address] Dr. Ayush Sorto Glucose [Mass/Vol] 93 mg/dL Normal 74-106 [facility] Comment on above: Performed By: #### T 7, URIC, TSH, CMP, LIPID #### [facility] [address] [place] [address] Dr. Ayush Sorto Potassium [Moles/Vol] 4.8 mmol/L Normal 3.5-5.1 [facility] Comment on above: Performed By: #### T 7, URIC, TSH, CMP, LIPID #### [facility] [address] [place] [address] Dr. Ayush Sorto Protein [Mass/Vol] 7.4 g/dL Normal 6.4-8.2 [facility] Comment on above: Performed By: #### T 7, URIC, TSH, CMP, LIPID #### [facility] [address] [place] [address] Dr. Ayush Sorto Sodium [Moles/Vol] 139 mmol/L Normal 136-145 [facility] Comment on above: Performed By: #### T 7, URIC, TSH, CMP, LIPID #### [facility] [address] [place] [address] Dr. Ayush Sorto Urea nitrogen [Mass/Vol] 23.0 mg/dL Critically high 7.0-18.0 [facility] Comment on above: Performed By: #### T 7, URIC, TSH, CMP, LIPID #### [facility] [address] [place] [address] Dr. Ayush Sorto Urea nitrogen/Creatinine [Mass ratio] 26.1 mg/mg Normal [facility] Comment on above: Performed By: #### T 7, URIC, TSH, CMP, LIPID #### [facility] [address] [place] [address] Dr. Ayush Sorto TSHon 01-22-2023 TSH 1.145 uIU/mL Normal 0.358-3.74 0 [facility] Comment on above: Performed By: #### T 7, URIC, TSH, CMP, LIPID #### [facility] [address] [place] [address] Dr. Ayuhs Sorto URIC ACID SERUMon 01-22-2023 Urate [Mass/Vol] 6.8 mg/dL Normal 3.5-7.2 [facility] Comment on above: Performed By: #### T 7, URIC, TSH, CMP, LIPID #### [facility] [address] [place] [address] Dr. Ayush Sorto VITAMIN D 25 OHon 01-22-2023 VIT D 25-OH 72.7 ng/mL Normal [facility] Comment on above: Performed By: #### V ITKENIA, PSASC #### [facility] [address] [place] [address] Dr. Ayush Sorto VIT D RANGES SEE BELOW Normal [facility] Comment on above: Result Comment: <20 ng/mL Vit D deficient 20 - <30 ng/mL Vit D insufficient 30 - 100 ng/mL Vit D sufficient >100 ng/mL Potential Toxicity Performed By: #### V ITAD, PSASC #### [facility] [address] [place] [address] Dr. Ayush Sorto PROF CHEM 8 (BAS METB)on Anion gap [Moles/Vol] 10.1 mmol/L Normal [facility] Comment on above: Performed By: #### T 7, URIC, TSH, CMP, LIPID #### [facility] [address] [place] [address] Dr. Ayush Sorto Calcium [Mass/Vol] 9.3 mg/dL Normal 8.5-10.1 [facility] Comment on above: Performed By: #### T 7, URIC, TSH, CMP, LIPID #### [facility] [address] [place] [address] Dr. Ayush Sorto Chloride [Moles/Vol] 102 mmol/L Normal 98-107 [facility] Comment on above: Performed By: #### T 7, URIC, TSH, CMP, LIPID #### [facility] [address] [place] [address] Dr. Ayush Sorto CO2 [Moles/Vol] 31.8 mmol/L Normal 21.0-32.0 [facility] Comment on above: Performed By: #### T 7, URIC, TSH, CMP, LIPID #### [facility] [address] [place] [address] Dr. Ayush Sorto Creatinine [Mass/Vol] 1.03 mg/dL Normal 0.70-1.30 [facility] Comment on above: Performed By: #### T 7, URIC, TSH, CMP, LIPID #### [facility] [address] [place] [address] Dr. Ayush Sorto EGFR-AF RWANDAN >60 Normal >=60 [facility] Comment on above: Performed By: #### T 7, URIC, TSH, CMP, LIPID #### [facility] [address] [place] [address] Dr. Ayush Sorto EGFR-NON AF RWANDAN >60 Normal >=60 [facility] Comment on above: Performed By: #### T 7, URIC, TSH, CMP, LIPID #### [facility] [address] [address] [address] Ayush Sorto Glucose [Mass/Vol] 121 mg/dL Critically high 74-106 [facility] Comment on above: Performed By: #### T 7, URIC, TSH, CMP, LIPID #### [facility] [address] [address] [address] Ayush Sorto Potassium [Moles/Vol] 4.9 mmol/L Normal 3.5-5.1 [facility] Comment on above: Performed By: #### T 7, URIC, TSH, CMP, LIPID #### [facility] [address] [address] [address] Ayush Sorto Sodium [Moles/Vol] 139 mmol/L Normal 136-145 [facility] Comment on above: Performed By: #### T 7, URIC, TSH, CMP, LIPID #### [facility] [address] [place] [address] Dr. Ayush Sorto Urea nitrogen [Mass/Vol] 15.0 mg/dL Normal 7.0-18.0 [facility] Comment on above: Performed By: #### T 7, URIC, TSH, CMP, LIPID #### [facility] [address] [place] [address] Dr. Ayush Sorto Urea nitrogen/Creatinine [Mass ratio] 14.6 mg/mg Normal [facility] Comment on above: Performed By: #### T 7, URIC, TSH, CMP, LIPID #### [facility] [address] [place] [address] Dr. Ayush Sorto ECHOCARDIO M/2D COMPLETEon 1 11-24-2021 ECHOCARDIO M/2D COMPLETE Patient: REECE HOGUE Exam Date: 09/24/2022 : 1960 Gender:M Ordering : RENU ZARCO [facility] Admission #: [id number] Family : DR KACY JACOBSON . Order #: [id number] CLICK HERE TO VIEW EXAM ECHOCARDIOGRAM REPORT [...] M.D. on 09/24/2022 at 16:24 Normal [facility] CBC AUTO DIFFon 09-10-2022 BASO # 0.1 103/ul Normal 0.0-0.1 [facility] Comment on above: Performed By: #### C BC #### [facility] [address] [place] [address] Dr. Ayush Sorto Basophils/100 WBC (Bld) 0.8 % Normal 0.2-2.0 [facility] Comment on above: Performed By: #### C BC #### [facility] [address] [place] [address] Dr. Ayush Sorto EO # 0.1 103/ul Normal 0.0-0.7 [facility] Comment on above: Performed By: #### C BC #### [facility] [address] [place] [address] Dr. Ayush Sorto Eosinophils/100 WBC (Bld) 1.3 % Normal 0.9-7.0 [facility] Comment on above: Performed By: #### C BC #### [facility] [facility] [address] [place] [address] Dr. Ayush Sorto Erythrocyte distribution width (RBC) [Ratio] 12.8 % Normal 11.0-15.0 [facility] Comment on above: Performed By: #### C BC #### [facility] [address] [place] [address] Dr. Ayush Sorto Hematocrit (Bld) [Volume fraction] 48.5 % Normal 42.0-54.0 [facility] Comment on above: Performed By: #### C BC #### [facility] [address] [place] [address] Dr. Ayush Sorto Hemoglobin (Bld) [Mass/Vol] 16.2 g/dL Normal 14.0-18.0 [facility] Comment on above: Performed By: #### C BC #### [facility] [address] [place] [address] Dr. Ayush Sorto IG # 0.01 10e3/ul Normal 0.00-0.03 [facility] Comment on above: Performed By: #### C BC #### [facility] [address] [place] [address] Dr. Ayush Sorto IG % 0.2 % Normal 0.0-0.5 [facility] Comment on above: Performed By: #### C BC #### [facility] [address] [place] [address] Dr. Ayush Sorto LYMPH # 1.0 103/ul Critically low 1.2-3.8 [facility] Comment on above: Performed By: #### C BC #### [facility] [address] [place] [address] Dr. Ayush Sorto Lymphocytes/100 WBC (Bld) 15.6 % Critically low 20.5-60.0 [facility] Comment on above: Performed By: #### C BC #### [facility] [address] [place] [address] Dr. Ayush Sorto MANUAL DIFF REQ NO Normal [facility] Comment on above: Performed By: #### C BC #### [facility] [address] [place] [address] Dr. Ayush Sorto MCH (RBC) [Entitic mass] 30.5 pg Normal 25.9-34.0 [facility] Comment on above: Performed By: #### C BC #### [facility] [address] [place] [address] Dr. Ayush Sorto MCHC (RBC) [Mass/Vol] 33.4 g/dL Normal 29.9-35.2 [facility] Comment on above: Performed By: #### C BC #### [facility] [address] [place] [address] Dr. Ayush Sorto MCV (RBC) [Entitic vol] 91.3 fL Normal 80.0-94.0 [facility] Comment on above: Performed By: #### C BC #### [facility] [address] [place] [address] Dr. Ayush Sorto MONO # 0.6 103/ul Normal 0.3-0.8 [facility] Comment on above: Performed By: #### C BC #### [facility] [address] [place] [address] Dr. Ayush Sorto Monocytes/100 WBC (Bld) 9.2 % Normal 1.7-12.0 [facility] Comment on above: Performed By: #### C BC #### [facility] [address] [place] [address] Dr. Ayush Sorto NEUT # 4.5 103/ul Normal 1.4-6.5 [facility] Comment on above: Performed By: #### C BC #### [facility] [address] [place] [address] Dr. Ayush Sorto Neutrophils/100 WBC (Bld) 72.9 % Normal 43.0-75.0 [facility] Comment on above: Performed By: #### C BC #### [facility] [address] [address] [address] Ayush Sorto Platelet mean volume (Bld) [Entitic vol] 8.9 fL Critically low 9.5-13.5 [facility] Comment on above: Performed By: #### C BC #### [facility] [address] [address] [address] Ayush Sorto PLT 226 103/ul Normal 150-450 [facility] Comment on above: Performed By: #### C BC #### [facility] [address] [place] [address] Dr. Ayush Sorto RBC 5.31 106/ul Normal 4.70-6.10 [facility] Comment on above: Performed By: #### C BC #### [facility] [address] [place] [address] Dr. Ayush Sorto WBC 6.2 103/ul Normal 4.0-11.0 [facility] Comment on above: Performed By: #### C BC #### [facility] [address] [place] [address] Dr. Ayush Sorto LIPID PROFILEon 09-10-2022 CHOL-HDL RATIO NORM SEE BELOW Normal [facility] Comment on above: Result Comment: 3.3 - 4.4 LOW RISK 4.4 - 7.1 AVERAGE RISK 7.1 - 11.0 MODERATE RISK >11.0 HIGH RISK Performed By: #### T 7, URIC, TSH, CMP, LIPID #### [facility] [address] [place] [address] Dr. Ayush Sorto Cholesterol [Mass/Vol] 206 mg/dL Critically high <=200 [facility] Comment on above: Performed By: #### T 7, URIC, TSH, CMP, LIPID #### [facility] [address] [place] [address] Dr. Ayush Sorto Cholesterol in HDL [Mass/Vol] 73 mg/dL Critically high 40-60 [facility] Comment on above: Performed By: #### T 7, URIC, TSH, CMP, LIPID #### [facility] [address] [address] [address] Ayush Sorto Cholesterol in LDL [Mass/Vol] 123.2 mg/dL Normal [facility] Comment on above: Performed By: #### T 7, URIC, TSH, CMP, LIPID #### [facility] [address] [address] [address] Ayush Sorto Cholesterol.total/C holesterol in HDL [Mass ratio] 2.8 {ratio} Normal [facility] Comment on above: Performed By: #### T 7, URIC, TSH, CMP, LIPID #### [facility] [address] [address] [address] Ayush Sorto HDL NORMAL > or = 60 mg/dl - LO W CARDIOVASCULAR RISK <40 mg/dl - HIGH CARDIOVASCULAR RISK Normal [facility] Comment on above: Performed By: #### T 7, URIC, TSH, CMP, LIPID #### [facility] [address] [address] [address] Ayush Sorto LDL CALC NORMAL SEE BELOW Normal [facility] Comment on above: Result Comment: <100 mg/dl OPTIMAL 100 - 129 mg/dl NEAR OR ABOVE OPTIMAL 130 - 159 mg/dl BORDERLINE HIGH 160 - 189 mg/dl HIGH >190 mg/dl VERY HIGH Performed By: #### T 7, URIC, TSH, CMP, LIPID #### [facility] [address] [address] [address] Ayush Sorto Triglyceride [Mass/Vol] 49 mg/dL Normal <=150 [facility] Comment on above: Performed By: #### T 7, URIC, TSH, CMP, LIPID #### [facility] [address] [address] [address] Ayush Sorto VLDL CALC 9.8 mg/dL Normal [facility] Comment on above: Performed By: #### T 7, URIC, TSH, CMP, LIPID #### [facility] [address] [place] [address] Dr. Ayush Sorto PROF 14(COMP METB)on 022 Albumin [Mass/Vol] 4.0 g/dL Normal 3.4-5.0 [facility] Comment on above: Performed By: #### T 7, URIC, TSH, CMP, LIPID #### [facility] [address] [place] [address] Dr. Ayush Sorto Albumin/Globulin [Mass ratio] 1.2 {ratio} Normal [facility] Comment on above: Performed By: #### T 7, URIC, TSH, CMP, LIPID #### [facility] [address] [place] [address] Dr. Ayush Sorto ALP [Catalytic activity/Vol] 83 U/L Normal 46-116 [facility] Comment on above: Performed By: #### T 7, URIC, TSH, CMP, LIPID #### [facility] [address] [place] [address] Dr. Ayush Sorto ALT [Catalytic activity/Vol] 35 U/L Normal 16-63 [facility] Comment on above: Performed By: #### T 7, URIC, TSH, CMP, LIPID #### [facility] [address] [place] [address] Dr. Ayush Sorto Anion gap [Moles/Vol] 9.0 mmol/L Normal [facility] Comment on above: Performed By: #### T 7, URIC, TSH, CMP, LIPID #### [facility] [address] [place] [address] Dr. Ayush Sorto AST [Catalytic activity/Vol] 26 U/L Normal 15-37 [facility] Comment on above: Performed By: #### T 7, URIC, TSH, CMP, LIPID #### [facility] [address] [place] [address] Dr. Ayush Sorto Bilirubin [Mass/Vol] 1.0 mg/dL Normal 0.2-1.0 [facility] Comment on above: Performed By: #### T 7, URIC, TSH, CMP, LIPID #### [facility] [address] [place] [address] Dr. Ayush Sorto Calcium [Mass/Vol] 9.5 mg/dL Normal 8.5-10.1 [facility] Comment on above: Performed By: #### T 7, URIC, TSH, CMP, LIPID #### [facility] [address] [place] [address] Dr. Ayush Sorto Chloride [Moles/Vol] 105 mmol/L Normal 98-107 [facility] Comment on above: Performed By: #### T 7, URIC, TSH, CMP, LIPID #### [facility] [address] [place] [address] Dr. Ayush Sorto CO2 [Moles/Vol] 27.7 mmol/L Normal 21.0-32.0 [facility] Comment on above: Performed By: #### T 7, URIC, TSH, CMP, LIPID #### [facility] [address] [address] [address] Ayush Sorto Creatinine [Mass/Vol] 0.90 mg/dL Normal 0.70-1.30 [facility] Comment on above: Performed By: #### T 7, URIC, TSH, CMP, LIPID #### [facility] [address] [place] [address] Dr. Ayush Sorto EGFR-AF RWANDAN >60 Normal >=60 [facility] Comment on above: Performed By: #### T 7, URIC, TSH, CMP, LIPID #### [facility] [address] [place] [address] Dr. Ayush Sorto EGFR-NON AF RWANDAN >60 Normal >=60 [facility] Comment on above: Performed By: #### T 7, URIC, TSH, CMP, LIPID #### [facility] [address] [place] [address] Dr. Ayush Sorto Globulin (S) [Mass/Vol] 3.3 g/dL Normal [facility] Comment on above: Performed By: #### T 7, URIC, TSH, CMP, LIPID #### [facility] [address] [place] [address] Dr. Ayush Sorto Glucose [Mass/Vol] 105 mg/dL Normal 74-106 [facility] Comment on above: Performed By: #### T 7, URIC, TSH, CMP, LIPID #### [facility] [address] [address] [address] Ayush Sorto Potassium [Moles/Vol] 4.7 mmol/L Normal 3.5-5.1 [facility] Comment on above: Performed By: #### T 7, URIC, TSH, CMP, LIPID #### [facility] [address] [address] [address] Ayush Sorto Protein [Mass/Vol] 7.3 g/dL Normal 6.4-8.2 [facility] Comment on above: Performed By: #### T 7, URIC, TSH, CMP, LIPID #### [facility] [address] [place] [address] Dr. Ayush Sorto Sodium [Moles/Vol] 137 mmol/L Normal 136-145 [facility] Comment on above: Performed By: #### T 7, URIC, TSH, CMP, LIPID #### [facility] [address] [place] [address] Dr. Ayush Sorto Urea nitrogen [Mass/Vol] 19.0 mg/dL Critically high 7.0-18.0 [facility] Comment on above: Performed By: #### T 7, URIC, TSH, CMP, LIPID #### [facility] [address] [place] [address] Dr. Ayush Sorto Urea nitrogen/Creatinine [Mass ratio] 21.1 mg/mg Normal [facility] Comment on above: Performed By: #### T 7, URIC, TSH, CMP, LIPID #### [facility] [address] [place] [address] Dr. Ayush Sorto BASIC METABOLIC PANELon 10-2 Calcium mass conc 9.3 mg/dL Normal 8.6-10.3 [facility] Comment on above: Order Comment: No: D o not add to previous draw Performed By: #### 0 0121, 50191, 24911 ####[facility] [place] [address], [facility] Chloride molar conc 102 mmol/L Normal 98-107 [facility] Comment on above: Order Comment: No: D o not add to previous draw Performed By: #### 0 0121, 39803, 23199 ####[facility] [place] [address], [place] CO2 molar conc 27 mmol/L Normal 21-31 [facility] Comment on above: Order Comment: No: D o not add to previous draw Performed By: #### 0 0121, 51013, 20336 ####[facility] [place] [address], [facility] Creatinine mass conc 0.73 mg/dL Normal 0.70-1.30 [facility] Comment on above: Order Comment: No: D o not add to previous draw Performed By: #### 0 0121, 39920, 14682 ####[facility] [address], [facility] GFR/1.73 sq M predicted among blacks MDRD vol rate/area (S/P/Bld) mL/min/{1.73_m2} Normal >60 [facility] Comment on above: Order Comment: No: D o not add to previous draw Performed By: #### 0 0121, 50207, 18161 ####[facility] [place] [address], [facility] GFR/1.73 sq M predicted among non-blacks MDRD vol rate/area (S/P/Bld) mL/min/{1.73_m2} Normal >60 [facility] Comment on above: Order Comment: No: D o not add to previous draw Performed By: #### 0 0121, 24606, 37334 ####[facility] [place] [address], [facility] Glucose mass conc 109 mg/dL High 70-100 [facility] Comment on above: Order Comment: No: D o not add to previous draw Performed By: #### 0 0121, 68230, 92599 ####[facility] [place] [address], [facility] Potassium molar conc 4.1 mmol/L Normal 3.5-5.1 [facility] Comment on above: Order Comment: No: D o not add to previous draw Performed By: #### 0 0121, 58545, 71542 ####[facility] Sodium molar conc 136 mmol/L Normal 136-145 [facility] Comment on above: Order Comment: No: D o not add to previous draw Performed By: #### 0 0121, 95625, 13163 ####[facility] Urea nitrogen mass conc 10 mg/dL Normal 7-25 [facility] Comment on above: Order Comment: No: D o not add to previous draw Performed By: #### 0 0121, 66089, 16511 ####[facility] CBC COMPLETE BLOOD COUNTon Erythrocyte distribution width Auto Ratio (RBC) 12.8 % Normal 11.5-15.0 [facility] Comment on above: Order Comment: No: D o not add to previous draw Performed By: #### 0 0121, 64814, 21036 ####[facility] [facility] [address] Hematocrit Auto Volume Fraction (Bld) 45.7 % Normal 39.0-50.0 [facility] Comment on above: Order Comment: No: D o not add to previous draw Performed By: #### 0 0121, 11600, 16880 ####[facility] Hemoglobin mass conc (Bld) 15.6 g/dL Normal 13.0-17.0 [facility] Comment on above: Order Comment: No: D o not add to previous draw Performed By: #### 0 0121, 65179, 07803 ####[facility] [place] [address], [facility] MCH Auto Entitic mass (RBC) 30.4 pg Normal 27.0-33.0 [facility] Comment on above: Order Comment: No: D o not add to previous draw Performed By: #### 0 0121, 03534, 11079 ####[facility] [facility] [address] MCHC Auto mass conc (RBC) 34.1 g/dL Normal 32.0-35.0 [facility] Comment on above: Order Comment: No: D o not add to previous draw Performed By: #### 0 0121, 57723, 69041 ####[facility] MCV Auto Entitic volume (RBC) 89.1 fL Normal 82.0-98.0 [facility] Comment on above: Order Comment: No: D o not add to previous draw Performed By: #### 0 0121, 13551, 17152 ####[facility] [facility].[address] Nucleated RBC/100 WBC Ratio (Bld) 0 % Normal 0-0 [facility] Comment on above: Order Comment: No: D o not add to previous draw Performed By: #### 0 0121, 16753, 67869 ####[facility] [facility].[address] PLAT CNT 218 10*3/uL Normal 150-400 [facility] Comment on above: Order Comment: No: D o not add to previous draw Performed By: #### 0 0121, 08402, 24848 ####[facility] [facility].[address] RBC Auto #/vol (Bld) 5.13 10*6/uL Normal 4.20-5.70 [facility] Comment on above: Order Comment: No: D o not add to previous draw Performed By: #### 0 0121, 12627, 72488 ####[facility] [place] [address], [place] WBC Auto #/vol (Bld) 6.96 10*3/uL Normal 4.00-10.60 [facility] Comment on above: Order Comment: No: D o not add to previous draw Performed By: #### 0 0121, 30576, 37524 ####[facility], [place] [address] Cardiovascular Lab Reporton 09-14-[address] [facility]: [id number] Physician: Lizette Montano M.D.Medicine Service Date: 09/13/2018Division of Birthdate: 1960Cardiology Room #: 3CD [id number] CardiovascularServicesUniversi [facility] HospitalSxckpyjCjidko[address], [place] [address] Cardiovascular Laboratory ReportPROCEDURE: Transesophageal echocardiogram and cardioversion.INDICATION: Atrial fibrillation.FELLOW: Tanya Botello M.D.PROCEDURE IN DETAIL: An informed consent was obtained from the patientafter explaining indications, risks, and benefits, and alternatives. Thepatient understood and agreed and signed the consent form. The patient wasbrought to the lab aid and MOJGAN was performed under conscious sedation. Thepatient obtained a total of 10 mg of Versed and 100 mcg of fentanyl duringthe procedure. The transesophageal echocardiogram did not show anythrombus in the left atrial appendage. Full MOJGAN [facility]. After the transesophageal echocardiogram, synchronized biphasiccardioversion was done with 300 joules of energy. The patient successfullyconverted to sinus rhythm as evidenced by the EKG done postprocedure. Nocomplications throughout the procedure.Electronically Signed by:Lizette Haines M.D. 09/19/2018 08:34 P Lizette Haines M.D. I was present for the entire procedure. Date Dict: 09/13/2018/11:49 A/Al Brownlee Trans: 09/14/2018 06:55 [id number]: Kacy Jacobson M.D. [address] [id number] [facility] [place] [address] Yury Funez M.D. [address] [facility] 111[address] [facility] [address] Normal [facility] APTTon 09-13-2018 aPTT Coag time (Bld) 86.4 s Critically high 25.0-35.0 [facility] Comment on above: Order Comment: No: D [...] PRESENCEOF HEPARIN. Performed By: #### 0 0121, 03283, 48354 ####[facility] [facility] aPTT Coag time (Bld) 41.4 s High 25.0-35.0 [facility] Comment on above: Result Comment: ALL RESULTS [...] THIS PURPOSE. Performed By: #### 0 0121, 35692, 65916 ####[facility] UFH HEPARIN ASSAYon 09-13-20 18 UNFRACTIONATED HEPARIN 0.64 IU/mL Normal 0.30-0.70 [facility] Comment on above: Result Comment: Lisa roxaban and Apixaban will interfere with the anti Xa assay used tomonitor UFH and LMWH. Performed By: #### 0 0121, 02571, 75318 ####[facility] UNFRACTIONATED HEPARIN 0.25 IU/mL Low 0.30-0.70 [facility] Comment on above: Result Comment: Seymour roxaban and Apixaban will interfere with the anti Xa assay used tomonitor UFH and LMWH. Performed By: #### 0 0121, 32658, 71237 ####[facility] BASIC METABOLIC PANELon 10-2 Calcium mass conc 8.6 mg/dL Normal 8.6-10.3 [facility] Comment on above: Order Comment: No: D o not add to previous draw Performed By: #### 0 0121, 81249, 97211 ####[facility] [place] [address], [facility] Chloride molar conc 106 mmol/L Normal 98-107 [facility] Comment on above: Order Comment: No: D o not add to previous draw Performed By: #### 0 0121, 12227, 12974 ####[facility] [facility] CO2 molar conc 25 mmol/L Normal 21-31 [facility] Comment on above: Order Comment: No: D o not add to previous draw Performed By: #### 0 0121, 27637, 70904 ####[facility] [place] [address], [facility] Creatinine mass conc 0.64 mg/dL Low 0.70-1.30 [facility] Comment on above: Order Comment: No: D o not add to previous draw Performed By: #### 0 0121, 48864, 01503 ####[facility] [place] [address], [facility] GFR/1.73 sq M predicted among blacks MDRD vol rate/area (S/P/Bld) mL/min/{1.73_m2} Normal >60 [facility] Comment on above: Order Comment: No: D o not add to previous draw Performed By: #### 0 0121, 20823, 66398 ####[facility] [place] [address], [facility] GFR/1.73 sq M predicted among non-blacks MDRD vol rate/area (S/P/Bld) mL/min/{1.73_m2} Normal >60 [facility] Comment on above: Order Comment: No: D o not add to previous draw Performed By: #### 0 0121, 89050, 00384 ####[facility] [place] [address], [facility] Glucose mass conc 100 mg/dL Normal 70-100 [facility] Comment on above: Order Comment: No: D o not add to previous draw Performed By: #### 0 0121, 82181, 83761 ####[facility] [place] [address], [facility] Potassium molar conc 4.0 mmol/L Normal 3.5-5.1 [facility] Comment on above: Order Comment: No: D o not add to previous draw Performed By: #### 0 0121, 79267, 43368 ####[facility] [place] [address], [facility] Sodium molar conc 137 mmol/L Normal 136-145 [facility] Comment on above: Order Comment: No: D o not add to previous draw Performed By: #### 0 0121, 72673, 36305 ####[facility] [place] [address], [facility] Urea nitrogen mass conc 14 mg/dL Normal 7-25 [facility] Comment on above: Order Comment: No: D o not add to previous draw Performed By: #### 0 0121, 91027, 12294 ####[facility] [facility].[address] CBC W/DIFFon 09-12-2018 ABS BASOPHILS 0.0 10*3/uL Normal 0.0-0.2 [facility] Comment on above: Order Comment: No: D o not add to previous draw Performed By: #### 0 0121, 02238, 36444 ####[facility] ABS IMM GRANS 0.0 10*3/uL Normal 0.0-0.2 [facility] [place] Comment on above: Order Comment: No: D o not add to previous draw Performed By: #### 0 0121, 43572, 62807 ####[facility].[address] ABS NEUTROPHILS 3.1 10*3/uL Normal 1.6-7.6 [facility] [place] Comment on above: Order Comment: No: D o not add to previous draw Performed By: #### 0 0121, 70898, 43864 ####[facility].[address] Basophils Auto #/vol (Bld) 0.7 % Normal 0.0-1.0 [facility] [place] Comment on above: Order Comment: No: D o not add to previous draw Performed By: #### 0 0121, 77819, 09021 ####[facility] [place] [address], [facility] Eosinophils Auto #/vol (Bld) 0.2 10*3/uL Normal 0.0-0.5 [facility] [place] Comment on above: Order Comment: No: D o not add to previous draw Performed By: #### 0 0121, 91209, 69021 ####[facility] [place] [address], [facility] Eosinophils/100 WBC Auto (Bld) 3.6 % Normal 0.0-6.0 [facility] [place] Comment on above: Order Comment: No: D o not add to previous draw Performed By: #### 0 0121, 72576, 43611 ####[facility] Erythrocyte distribution width Auto Ratio (RBC) 12.7 % Normal 11.5-15.0 [facility] [place] Comment on above: Order Comment: No: D o not add to previous draw Performed By: #### 0 0121, 72611, 06594 ####[facility] [facility].[address] Hematocrit Auto Volume Fraction (Bld) 45.5 % Normal 39.0-50.0 [facility] [place] Comment on above: Order Comment: No: D o not add to previous draw Performed By: #### 0 0121, , 76777 ####[facility] [facility].[address] Hemoglobin mass conc (Bld) 15.2 g/dL Normal 13.0-17.0 [facility] [place] Comment on above: Order Comment: No: D o not add to previous draw Performed By: #### 0 0121, 03423, 61834 ####[facility] [facility].[address] IMMATURE GRANS 0.4 % Normal 0.0-1.0 [facility] [place] Comment on above: Order Comment: No: D o not add to previous draw Performed By: #### 0 0121, 47649, 41877 ####[facility] [facility].[address] Lymphocytes Auto #/vol (Bld) 1.5 10*3/uL Normal 1.2-4.0 [facility] [place] Comment on above: Order Comment: No: D o not add to previous draw Performed By: #### 0 0121, 77737, 72530 ####[facility] Lymphocytes/100 WBC Auto (Bld) 27.8 % Normal 20.0-45.0 [facility] [place] Comment on above: Order Comment: No: D o not add to previous draw Performed By: #### 0 0121, 78912, 83360 ####[facility] MCH Auto Entitic mass (RBC) 30.0 pg Normal 27.0-33.0 [facility] [place] Comment on above: Order Comment: No: D o not add to previous draw Performed By: #### 0 0121, 26755, 08651 ####[facility] MCHC Auto mass conc (RBC) 33.4 g/dL Normal 32.0-35.0 [facility] [place] Comment on above: Order Comment: No: D o not add to previous draw Performed By: #### 0 0121, 75019, 52245 ####[facility] MCV Auto Entitic volume (RBC) 89.9 fL Normal 82.0-98.0 [facility] [place] Comment on above: Order Comment: No: D o not add to previous draw Performed By: #### 0 0121, 73374, 58022 ####[facility] Monocytes Auto #/vol (Bld) 0.6 10*3/uL Normal 0.1-1.0 [facility] [place] Comment on above: Order Comment: No: D o not add to previous draw Performed By: #### 0 0121, 70889, 21128 ####[facility] MONOS 11.4 % Normal 5.0-12.0 [facility] [place] Comment on above: Order Comment: No: D o not add to previous draw Performed By: #### 0 0121, 62374, 40673 ####[facility] [place] [address], [facility] Neutrophils/100 WBC Auto (Bld) 56.1 % Normal 40.0-72.0 [facility] [place] Comment on above: Order Comment: No: D o not add to previous draw Performed By: #### 0 0121, 70346, 31434 ####[facility] Nucleated RBC/100 WBC Ratio (Bld) 0 % Normal 0-0 [facility] [place] Comment on above: Order Comment: No: D o not add to previous draw Performed By: #### 0 0121, 82103, 97028 ####[facility] [facility].[address] PLAT CNT 188 10*3/uL Normal 150-400 [facility] [place] Comment on above: Order Comment: No: D o not add to previous draw Performed By: #### 0 0121, 84983, 70750 ####[facility] [facility].[address] RBC Auto #/vol (Bld) 5.06 10*6/uL Normal 4.20-5.70 [facility] [place] Comment on above: Order Comment: No: D o not add to previous draw Performed By: #### 0 0121, 07161, 80701 ####[facility] [place] [address], [facility] WBC Auto #/vol (Bld) 5.54 10*3/uL Normal 4.00-10.60 [facility] [place] Comment on above: Order Comment: No: D o not add to previous draw Performed By: #### 0 0121, 00190, 16375 ####[facility] [place] [address], [facility] MAGNESIUM BLOODon 09-12-2018 Magnesium mass conc 1.9 mg/dL Normal 1.9-2.7 [facility] [place] Comment on above: Order Comment: No: D o not add to previous draw Performed By: #### 0 0121, 15504, 18243 ####[facility] [place] [address], [facility] UFH HEPARIN ASSAYon 09-12-20 18 UNFRACTIONATED HEPARIN 0.26 IU/mL Low 0.30-0.70 [facility] [place] Comment on above: Result Comment: Lisa roxaban and Apixaban will interfere with the anti Xa assay used tomonitor UFH and LMWH. Performed By: #### 0 0121, 40869, 15256 ####[facility] UNFRACTIONATED HEPARIN 0.72 IU/mL High 0.30-0.70 [facility] [place] Comment on above: Result Comment: Seymour roxaban and Apixaban will interfere with the anti Xa assay used tomonitor UFH and LMWH. Performed By: #### 0 0121, 22190, 74804 ####[facility] [place] [address], [facility] UNFRACTIONATED HEPARIN 0.49 IU/mL Normal 0.30-0.70 [facility] [place] Comment on above: Result Comment: Seymour roxaban and Apixaban will interfere with the anti Xa assay used tomonitor UFH and LMWH. Performed By: #### 0 0121, 24741, 81490 ####[facility] [place] [address], [facility] APTTon 09-11-2018 aPTT Coag time (Bld) 101.0 s Critically high 25.0-35.0 [facility] [place] Comment on above: Order Comment: No: D [...] RNAT 615 Performed By: #### 0 0121, 49290, 56442 ####[facility] BASIC METABOLIC PANELon 10-2 Calcium mass conc 8.9 mg/dL Normal 8.6-10.3 [facility] [place] Comment on above: Order Comment: No: D o not add to previous draw Performed By: #### 0 0121, 84446, 56084 ####[facility] [place] [address], [facility] Chloride molar conc 106 mmol/L Normal 98-107 [facility] [place] Comment on above: Order Comment: No: D o not add to previous draw Performed By: #### 0 0121, 53423, 41748 ####[facility] [place] [address], [facility] CO2 molar conc 25 mmol/L Normal 21-31 [facility] [place] Comment on above: Order Comment: No: D o not add to previous draw Performed By: #### 0 0121, 26087, 95652 ####[facility] [place] [address], [facility] Creatinine mass conc 0.84 mg/dL Normal 0.70-1.30 [facility] [place] Comment on above: Order Comment: No: D o not add to previous draw Performed By: #### 0 0121, 34752, 36245 ####[facility] [place] [address], [facility] GFR/1.73 sq M predicted among blacks MDRD vol rate/area (S/P/Bld) mL/min/{1.73_m2} Normal >60 [facility] [place] Comment on above: Order Comment: No: D o not add to previous draw Performed By: #### 0 0121, 35665, 69741 ####[facility] [facility] [address], [facility] GFR/1.73 sq M predicted among non-blacks MDRD vol rate/area (S/P/Bld) mL/min/{1.73_m2} Normal >60 [facility] [place] Comment on above: Order Comment: No: D o not add to previous draw Performed By: #### 0 0121, 38057, 46940 ####[facility] [facility] [address], [facility] Glucose mass conc 103 mg/dL High 70-100 [facility] [place] Comment on above: Order Comment: No: D o not add to previous draw Performed By: #### 0 0121, 94549, 19578 ####[facility] [place] [address], [facility] Potassium molar conc 4.0 mmol/L Normal 3.5-5.1 [facility] [place] Comment on above: Order Comment: No: D o not add to previous draw Performed By: #### 0 0121, 54878, 06244 ####[facility] [place] [address], [facility] Sodium molar conc 138 mmol/L Normal 136-145 [facility] [place] Comment on above: Order Comment: No: D o not add to previous draw Performed By: #### 0 0121, 62778, 71291 ####[facility] [place] [address], [facility] Urea nitrogen mass conc 20 mg/dL Normal 7-25 [facility] [place] Comment on above: Order Comment: No: D o not add to previous draw Performed By: #### 0 0121, 40995, 14020 ####[facility] [place] [address], [facility] CBC W/DIFFon 09-11-2018 ABS BASOPHILS 0.0 10*3/uL Normal 0.0-0.2 [facility] [place] Comment on above: Order Comment: No: D o not add to previous draw Performed By: #### 5 0103 ####[facility] ABS IMM GRANS 0.0 10*3/uL Normal 0.0-0.2 [facility] [place] Comment on above: Order Comment: No: D o not add to previous draw Performed By: #### 5 0103 ####[facility] ABS NEUTROPHILS 3.1 10*3/uL Normal 1.6-7.6 [facility] [place] Comment on above: Order Comment: No: D o not add to previous draw Performed By: #### 5 3 ####[facility] Basophils Auto #/vol (Bld) 0.8 % Normal 0.0-1.0 [facility] [place] Comment on above: Order Comment: No: D o not add to previous draw Performed By: #### 5 0103 ####[facility] Eosinophils Auto #/vol (Bld) 0.2 10*3/uL Normal 0.0-0.5 [facility] [place] Comment on above: Order Comment: No: D o not add to previous draw Performed By: #### 5 0103 ####[facility] Eosinophils/100 WBC Auto (Bld) 3.5 % Normal 0.0-6.0 [facility] [place] Comment on above: Order Comment: No: D o not add to previous draw Performed By: #### 5 3 ####[facility] Erythrocyte distribution width Auto Ratio (RBC) 12.8 % Normal 11.5-15.0 [facility] [place] Comment on above: Order Comment: No: D o not add to previous draw Performed By: #### 5 0103 ####[facility] Hematocrit Auto Volume Fraction (Bld) 45.3 % Normal 39.0-50.0 [facility] [place] Comment on above: Order Comment: No: D o not add to previous draw Performed By: #### 5 3 ####[facility] Hemoglobin mass conc (Bld) 15.3 g/dL Normal 13.0-17.0 [facility] [place] Comment on above: Order Comment: No: D o not add to previous draw Performed By: #### 3 ####[facility] IMMATURE GRANS 0.4 % Normal 0.0-1.0 [facility] [place] Comment on above: Order Comment: No: D o not add to previous draw Performed By: #### 5 3 ####[place] [id number] Lymphocytes Auto #/vol (Bld) 1.4 10*3/uL Normal 1.2-4.0 [facility] [place] Comment on above: Order Comment: No: D o not add to previous draw Performed By: #### 5 3 ####[facility] Lymphocytes/100 WBC Auto (Bld) 25.9 % Normal 20.0-45.0 [facility] [place] Comment on above: Order Comment: No: D o not add to previous draw Performed By: #### 5 3 ####[facility] [place] [address] MCH Auto Entitic mass (RBC) 30.5 pg Normal 27.0-33.0 [facility] [place] Comment on above: Order Comment: No: D o not add to previous draw Performed By: #### 5 0103 ####[facility] MCHC Auto mass conc (RBC) 33.8 g/dL Normal 32.0-35.0 [facility] [place] Comment on above: Order Comment: No: D o not add to previous draw Performed By: #### 5 0103 ####[facility] MCV Auto Entitic volume (RBC) 90.2 fL Normal 82.0-98.0 [facility] [place] Comment on above: Order Comment: No: D o not add to previous draw Performed By: #### 5 0103 ####[facility] Monocytes Auto #/vol (Bld) 0.5 10*3/uL Normal 0.1-1.0 [facility] [place] Comment on above: Order Comment: No: D o not add to previous draw Performed By: #### 5 0103 ####[facility] MONOS 10.2 % Normal 5.0-12.0 [facility] [place] Comment on above: Order Comment: No: D o not add to previous draw Performed By: #### 5 0103 ####[facility] Neutrophils/100 WBC Auto (Bld) 59.2 % Normal 40.0-72.0 [facility] [place] Comment on above: Order Comment: No: D o not add to previous draw Performed By: #### 5 3 ####[facility] Nucleated RBC/100 WBC Ratio (Bld) 0 % Normal 0-0 [facility] [place] Comment on above: Order Comment: No: D o not add to previous draw Performed By: #### 5 0103 ####[facility] [place] [address], [facility] PLAT CNT 226 10*3/uL Normal 150-400 [facility] [place] Comment on above: Order Comment: No: D o not add to previous draw Performed By: #### 5 0103 ####[facility] RBC Auto #/vol (Bld) 5.02 10*6/uL Normal 4.20-5.70 [facility] [place] Comment on above: Order Comment: No: D o not add to previous draw Performed By: #### 5 0103 ####[facility] [facility] [place] [address], [facility] WBC Auto #/vol (Bld) 5.21 10*3/uL Normal 4.00-10.60 [facility] [place] Comment on above: Order Comment: No: D o not add to previous draw Performed By: #### 5 0103 ####[facility] MAGNESIUM BLOODon 09-11-2018 Magnesium mass conc 1.8 mg/dL Low 1.9-2.7 [facility] [place] Comment on above: Order Comment: No: D o not add to previous draw Performed By: #### 0 0121, 02173, 54082 ####[facility] [place] [address], [facility] PHOSPHORUS BLOODon 8 Phosphate mass conc 3.0 mg/dL Normal 2.5-5.0 [facility] [place] Comment on above: Order Comment: No: D o not add to previous draw Performed By: #### 0 0121, 59255, 46903 ####[facility] PROTHROMBIN TIMEon 10-20-201 8 INR Coag RelTime (PPP) 1.01 {INR} Normal 0.91-1.16 [facility] [place] Comment on above: Order Comment: No: D [...] OF ACTION, CLINICALEFFECTIVENESS, AND OPTIMAL THERAPEUTIC RANGE. [id number]. Performed By: #### 0 0121, 34307, 93871 ####[facility] [facility].[address] Prothrombin time (PT) Coag time (PPP) 13.3 s Normal 12.3-14.8 [facility] [place] Comment on above: Order Comment: No: D o not add to previous draw Result Comment: ALL RESULTS MUST BE INTERPRETED WITH RESPECT TO BLOOD DRAWING ARTIFACTOR DILUTION ERROR OF ANTICOAGULANT AT THE TIME OF SAMPLING. Performed By: #### 0 0121, 67020, 22128 ####[facility] [facility].[address] TROPONIN-Ion 09-11-2018 Troponin I.cardiac mass conc 0.00 ng/mL Normal 0.00-0.04 [facility] [place] Comment on above: Order Comment: No: D o not add to previous draw Result Comment: REFE RENCE RANGES: 0.00 - 0.14 ng/ml NEGATIVE 0.15 - 0.25 ng/ml INDETERMINATE > 0.25 ng/ml INDICATIVE OF AN M.I. Performed By: #### 3 5200 ####[facility] [place] [address], [facility] UFH HEPARIN ASSAYon 09-11-20 18 UNFRACTIONATED HEPARIN 0.40 IU/mL Normal 0.30-0.70 [facility] [place] Comment on above: Result Comment: Lisa roxaban and Apixaban will interfere with the anti Xa assay used tomonitor UFH and LMWH. Performed By: #### 0 0121, 11606, 47496 ####[facility] [facility] [address], [facility] UNFRACTIONATED HEPARIN 0.39 IU/mL Normal 0.30-0.70 [facility] [place] Comment on above: Result Comment: Lisa roxaban and Apixaban will interfere with the anti Xa assay used tomonitor UFH and LMWH. Performed By: #### 0 0121, 45062, 07692 ####[facility] [place] [address], [facility] UNFRACTIONATED HEPARIN 0.70 IU/mL Normal 0.30-0.70 [facility] [place] Comment on above: Result Comment: Seymour roxaban and Apixaban will interfere with the anti Xa assay used tomonitor UFH and LMWH. Performed By: #### 0 0121, 96414, 62391 ####[facility] [place] [address], [facility] UNFRACTIONATED HEPARIN 0.49 IU/mL Normal 0.30-0.70 [facility] [place] Comment on above: Result Comment: Seymour roxaban and Apixaban will interfere with the anti Xa assay used tomonitor UFH and LMWH. Performed By: #### 3 0477 ####[facility] APTTon 09-10-2018 aPTT Coag time (Bld) 26.2 s Normal 25.0-35.0 [facility] [place] Comment on above: Result Comment: ALL RESULTS [...] THIS PURPOSE. Performed By: #### 5 6101, 01578 ####[facility] CBC W/DIFFon 09-10-2018 ABS BASOPHILS 0.0 10*3/uL Normal 0.0-0.2 [facility] [place] Comment on above: Order Comment: No: D o not add to previous draw Performed By: #### 5 0103 ####[place] [address] ABS IMM GRANS 0.0 10*3/uL Normal 0.0-0.2 [facility] [place] Comment on above: Order Comment: No: D o not add to previous draw Performed By: #### 5 0103 ####[place] [address] ABS NEUTROPHILS 6.0 10*3/uL Normal 1.6-7.6 [facility] [place] Comment on above: Order Comment: No: D o not add to previous draw Performed By: #### 5 0103 ####[facility] Basophils Auto #/vol (Bld) 0.4 % Normal 0.0-1.0 [facility] [place] Comment on above: Order Comment: No: D o not add to previous draw Performed By: #### 5 0103 ####[address] Eosinophils Auto #/vol (Bld) 0.1 10*3/uL Normal 0.0-0.5 [facility] [place] Comment on above: Order Comment: No: D o not add to previous draw Performed By: #### 5 0103 ####[facility] Eosinophils/100 WBC Auto (Bld) 1.1 % Normal 0.0-6.0 [facility] [place] Comment on above: Order Comment: No: D o not add to previous draw Performed By: #### 5 0103 ####[facility] Erythrocyte distribution width Auto Ratio (RBC) 12.5 % Normal 11.5-15.0 [facility] [place] Comment on above: Order Comment: No: D o not add to previous draw Performed By: #### 5 0103 ####[facility] Hematocrit Auto Volume Fraction (Bld) 48.8 % Normal 39.0-50.0 [facility] [place] Comment on above: Order Comment: No: D o not add to previous draw Performed By: #### 5 0103 ####[facility] Hemoglobin mass conc (Bld) 16.6 g/dL Normal 13.0-17.0 [facility] [place] Comment on above: Order Comment: No: D o not add to previous draw Performed By: #### 5 0103 ####[facility] IMMATURE GRANS 0.3 % Normal 0.0-1.0 [facility] [place] Comment on above: Order Comment: No: D o not add to previous draw Performed By: #### 5 0103 ####[facility] Lymphocytes Auto #/vol (Bld) 1.2 10*3/uL Normal 1.2-4.0 [facility] [place] Comment on above: Order Comment: No: D o not add to previous draw Performed By: #### 5 0103 ####[facility] Lymphocytes/100 WBC Auto (Bld) 14.7 % Low 20.0-45.0 [facility] [place] Comment on above: Order Comment: No: D o not add to previous draw Performed By: #### 5 0103 ####[facility] [address] MCH Auto Entitic mass (RBC) 30.3 pg Normal 27.0-33.0 [facility] [place] Comment on above: Order Comment: No: D o not add to previous draw Performed By: #### 5 0103 ####[facility] MCHC Auto mass conc (RBC) 34.0 g/dL Normal 32.0-35.0 [facility] [place] Comment on above: Order Comment: No: D o not add to previous draw Performed By: #### 5 0103 ####[facility] MCV Auto Entitic volume (RBC) 89.2 fL Normal 82.0-98.0 [facility] [place] Comment on above: Order Comment: No: D o not add to previous draw Performed By: #### 5 0103 ####[facility] Monocytes Auto #/vol (Bld) 0.6 10*3/uL Normal 0.1-1.0 [facility] [place] Comment on above: Order Comment: No: D o not add to previous draw Performed By: #### 5 0103 ####[facility] MONOS 7.9 % Normal 5.0-12.0 [facility] [place] Comment on above: Order Comment: No: D o not add to previous draw Performed By: #### 5 0103 ####[facility] [place] [address], [facility] Neutrophils/100 WBC Auto (Bld) 75.6 % High 40.0-72.0 [facility] [place] Comment on above: Order Comment: No: D o not add to previous draw Performed By: #### 5 0103 ####[facility] Nucleated RBC/100 WBC Ratio (Bld) 0 % Normal 0-0 [facility] [place] Comment on above: Order Comment: No: D o not add to previous draw Performed By: #### 5 0103 ####[facility]3000 [facility].[address] PLAT CNT 243 10*3/uL Normal 150-400 [facility] [place] Comment on above: Order Comment: No: D o not add to previous draw Performed By: #### 5 0103 ####[facility] RBC Auto #/vol (Bld) 5.47 10*6/uL Normal 4.20-5.70 [facility] [place] Comment on above: Order Comment: No: D o not add to previous draw Performed By: #### 5 0103 ####[facility] [facility].[address] WBC Auto #/vol (Bld) 7.87 10*3/uL Normal 4.00-10.60 [facility] [place] Comment on above: Order Comment: No: D o not add to previous draw Performed By: #### 5 0103 ####[facility] COMP METABOLIC PANELon 09-10 Albumin mass conc 4.0 g/dL Normal 3.5-5.7 [facility] [place] Comment on above: Order Comment: No: D o not add to previous draw Performed By: #### 0 0121, 77650, 75692 ####[facility] [place] [address], [facility] ALKALINE PHOSPH 59 IU/L Normal 34-104 [facility] [place] Comment on above: Order Comment: No: D o not add to previous draw Performed By: #### 0 0121, 63851, 49750 ####[facility] [place] [address], [facility] ALT enzyme act/vol 22 U/L Normal 7-52 [facility] [place] Comment on above: Order Comment: No: D o not add to previous draw Performed By: #### 0 0121, 35244, 76576 ####[facility] [place] [address], [facility] AST enzyme act/vol 20 U/L Normal 13-39 [facility] [place] Comment on above: Order Comment: No: D o not add to previous draw Performed By: #### 0 0121, 73285, 72375 ####[facility] [place] [address], [facility] Bilirubin mass conc 0.8 mg/dL Normal 0.3-1.0 [facility] [place] Comment on above: Order Comment: No: D o not add to previous draw Performed By: #### 0 0121, 97989, 66504 ####[facility] [place] [address], [facility] Calcium mass conc 8.8 mg/dL Normal 8.6-10.3 [facility] [place] Comment on above: Order Comment: No: D o not add to previous draw Performed By: #### 0 0121, 10129, 28380 ####[facility] [place] [address], [place] Chloride molar conc 103 mmol/L Normal 98-107 [facility] [place] Comment on above: Order Comment: No: D o not add to previous draw Performed By: #### 0 0121, 24405, 86223 ####[facility] [place] [address], [facility] CO2 molar conc 28 mmol/L Normal 21-31 [facility] [place] Comment on above: Order Comment: No: D o not add to previous draw Performed By: #### 0 0121, 58503, 80251 ####[facility] [place] [address], [facility] Creatinine mass conc 0.93 mg/dL Normal 0.70-1.30 [facility] [place] Comment on above: Order Comment: No: D o not add to previous draw Performed By: #### 0 0121, 90276, 33667 ####[facility] [place] [address], [facility] GFR/1.73 sq M predicted among blacks MDRD vol rate/area (S/P/Bld) mL/min/{1.73_m2} Normal >60 The [facility] [place] Comment on above: Order Comment: No: D o not add to previous draw Performed By: #### 0 0121, 09646, 69137 ####[facility] [facility] [address], [facility] GFR/1.73 sq M predicted among non-blacks MDRD vol rate/area (S/P/Bld) mL/min/{1.73_m2} Normal >60 The [facility] [place] Comment on above: Order Comment: No: D o not add to previous draw Performed By: #### 0 0121, 52133, 51365 ####[facility] [place] [address], [facility] Glucose mass conc 94 mg/dL Normal 70-100 [facility] [place] Comment on above: Order Comment: No: D o not add to previous draw Performed By: #### 0 0121, 74567, 67106 ####[facility] Potassium molar conc 4.0 mmol/L Normal 3.5-5.1 [facility] [place] Comment on above: Order Comment: No: D o not add to previous draw Performed By: #### 0 0121, 22168, 63709 ####[facility] Protein mass conc 6.8 g/dL Normal 6.0-8.3 [facility] [place] Comment on above: Order Comment: No: D o not add to previous draw Performed By: #### 0 0121, 08374, 59778 ####[facility]3000 [facility].[address] Sodium molar conc 140 mmol/L Normal 136-145 [facility] [place] Comment on above: Order Comment: No: D o not add to previous draw Performed By: #### 0 0121, 05762, 48070 ####[facility]3000 [facility].[address] Urea nitrogen mass conc 19 mg/dL Normal 7-25 [facility] [place] Comment on above: Order Comment: No: D o not add to previous draw Performed By: #### 0 0121, 20223, 56075 ####[facility]3000 [facility].[address] PROTHROMBIN TIMEon 201 8 INR Coag RelTime (PPP) 0.93 {INR} Normal 0.91-1.16 [facility] [place] Comment on above: Result Comment: ACCC P RECOMMENDED INR FOR WARFARIN THERAPY CONDITION INRPROPHYLAXIS OF VENOUS THROMBOSIS 2-3(HIGH-RISK SURGERY)TREATMENT OF VENOUS THROMBOSIS 2-3TREATMENT OF PULMONARY EMBOLISM 2-3PREVENTION OF SYSTEMIC EMBOLISM: 2-3 ACUTE MYOCARDIAL INFARCTION TISSUE HEART VALVES VALVULAR HEART DISEASE ATRIAL FIBRILLATION RECURRENT SYSTEMIC EMBOLISMMECHANICAL HEART VALVE 2.5-3.5 FROM: ORAL ANTICOAGULANTS. MECHANISM OF ACTION, CLINICALEFFECTIVENESS, AND OPTIMAL THERAPEUTIC RANGE. [id number]. Performed By: #### 5 6101, 88746 ####[facility]3000 [facility].[address] Prothrombin time (PT) Coag time (PPP) 12.5 s Normal 12.3-14.8 [facility] Comment on above: Result Comment: ALL RESULTS MUST BE INTERPRETED WITH RESPECT TO BLOOD DRAWING ARTIFACTOR DILUTION ERROR OF ANTICOAGULANT AT THE TIME OF SAMPLING. Performed By: #### 5 6101, 44197 ####[facility] TROPONIN-Ion 09-10-2018 Troponin I.cardiac mass conc 0.00 ng/mL Normal 0.00-0.04 [facility] Comment on above: Order Comment: No: D o not add to previous draw Result Comment: REFE RENCE RANGES: 0.00 - 0.14 ng/ml NEGATIVE 0.15 - 0.25 ng/ml INDETERMINATE > 0.25 ng/ml INDICATIVE OF AN M.I. Performed By: #### 3 5200 ####[facility] [place] [address], [facility] Troponin I.cardiac mass conc 0.00 ng/mL Normal 0.00-0.04 [facility] [place] Comment on above: Result Comment: REFE RENCE RANGES: 0.00 - 0.14 ng/ml NEGATIVE 0.15 - 0.25 ng/ml INDETERMINATE > 0.25 ng/ml INDICATIVE OF AN M.I. Performed By: #### 0 0121, 82039, 34639 ####[facility] [place] [address], [facility] TSH3on 09-10-2018 TSH 3RD GENERATION 1.05 uIU/mL Normal 0.34-5.60 [facility] [place] Comment on above: Performed By: #### 0 0121, 79071, 68791 ####[facility] [place] [address], [facility] Vital Signs Date Time Vital Sign Value Performing Clinician Faci lity 10-01-2023 08:20-0500 Body height 193.04 cm Sher Whitfield Other [facility] Other 10-01-2023 08:20-0500 Body mass index (BMI) [Ratio] 27.75 kg/m2 Sher Whitfield Other [facility] Other 10-01-2023 08:20-0500 Body weight 103.42 kg Sher Whitfield Other [facility] Other 1960 23:00-0500 >na< Ellie Rodríguez Dept. of Dermato logy Encounters Encounter Date Encounter Type Care Provider Facility Start: 09-12-2024 End: 09-12-2024 ambulatory Gold Villatoroitis Facility: [facility] Start: 05-23-2024 End: 05-23-2024 ambulatory Deonteus Efrainytautsonia Villatoroitis Facility: [facility] Start: 05-09-2024 End: 05-09-2024 ambulatory Deonteus Efrainytautas Shaunaitis Facility: [facility] Start: 05-02-2024 End: 05-02-2024 ambulatory Gold Choi MD Facility: [facility] Start: 11-10-2023 End: 11-10-2023 ambulatory RANDY CARRANZA [facility] [place] Start: 10-01-2023 Office outpatient ne w 30 minutes Sher Whitfield [facility] Start: 10-01-2023 End: 10-01-2023 ambulatory Sher Whitfield Facility:[facility] Start: 10-01-2023 End: 10-01-2023 ambulatory MD Kacy Jacobson Work Phone: [facility] Work Phone: Start: 10-01-2023 End: 10-01-2023 Patient encounter procedure MD Kacy Jacobson Work Phone: [facility] [place] Work Phone: Start: 04-01-2023 End: 04-01-2023 ambulatory [facility] Start: 03-24-2023 Luke Reinoso Dept. of Dermatology [...] abnormal findings DR KACY JACOBSON . [facility] Start: 01-22-2023 End: 01-23-[address] KACY JACOBSON . Facility:[facility] Start: 01-22-2023 End: 01-23-2023 Encounter for general adult medical examination without abnormal findings DR KACY JACOBSON . Facility:[facility] Start: 12-09-2022 End: 12-10-20[facility] Start: 10-27-2022 End: 10-28-2022 ambulatory [facility] Facility:[facility] Start: 10-08-2022 End: 10-09-2022 ambulatory RENU ZARCO Facility:[facility] Start: 09-24-2022 End: 09-25-2022 ambulatory RENUYULY ZARCO Facility:[facility] Start: 09-10-2022 End: 09-11-2022 ambulatory RENU ZARCO Facility:[facility] Start: 09-13-2018 End: 09-14-2018 Patient encounter procedure DEFAULT PHYSICIAN Facility:[facility] Start: 09-10-2018 End: 09-14-2018 Evaluation and management of inpatient AVE LUEVANO Facility:[facility] Start: 08-25-2018 End: 08-26-2018 Patient encounter procedure DEFAULT PHYSICIAN Facility:[facility] Procedures Date Procedure Procedure Detail [...] T 7, URIC, TSH, CMP, LIPID #### [facility] [address] [place] [address] Dr. Ayush Sorto Start: 09-13-2018 Rastafari of Cardi ac Rhythm, Single LIZETTE V MOUKARBEL Immunizations Immunization Date Immunization Notes Care Provider Taylor madrid 1960 pneumococcal conjuga te vaccine, 7 valent Ellie Rodríguez Dept. of Dermatology Payers Date Payer Category Payer Medicare 2023 Self-pay 2006 Private Health Insurance [id number] 1960 Unknown [id number] 1960 Unknown [id number] 2.16.8 40.1.293540.3.579.2.647 1959 Unknown [id number] 2.16.8 40.1.519454.3.579.2.647 1959 Unknown [id number] 2.16.8 40.1.306188.3.579.2.647 1959 Unknown [id number] 2.16.84 0.1.934098.3.579.2.593 1959 Unknown [id number] 2.16.84 0.1.640363.3.579.2.593 1959 Unknown [id number] 2.16.84 0.1.022858.3.579.2.593 1959 Unknown [id number] 2.16.84 0.1.605168.3.579.2.593 1959 Unknown [id number] 2.16.84 0.1.354294.3.579.2.593 1959 Unknown [id number] 2.16.84 0.1.447943.3.579.2.593 1959 Unknown [id number] 2.16.84 0.1.031418.3.579.2.593 1959 Unknown [id number] 2.16. 840.1.741152.3.579.2.356 1959 Unknown [id number] 2.16. 840.1.279622.3.579.2.356 1959 Unknown [id number] 2.16. 840.1.370214.3.579.2.356 1959 Unknown [id number] 2.16. 840.1.293194.3.579.2.196 1959 Unknown [id number] 2.16. 840.1.892779.3.579.2.196 1959 Unknown [id number] 2.16. 840.1.509864.3.579.2.196 1959 Unknown [id number] 2.16. 840.1.493594.3.579.2.196 Unknown Unknown [id number] 2.16.8 40.1.608953.3.579.2.531 Social History Date Type Detail Facility Start: 03-02-2023 Dept. of D ermatology Start: 1960 End: 1960 Sex Assigned At Male [facility] Sex Assigned At Sex Assigned At Bir th [facility] Other Goals Date Patient Goal Desired Activity /State Clinical Notes 04-01-2023 to 11-10-2023 Note Date & Type Note Facility 11-10-2023 Note [place] Electrophysiology Consult Note Reason for visit: afib [...] history was recently cardioverted by me at [facility] to SR . He states no [...] rhonchi Cardiovascular Rat (more content not included)... [facility] 11-10-2023 Note Patient here for 6 m o follow up chronic afib. No recent labs or imaging. Denies chest pain, SOB, palpitations, lightheadedness/syncope, and bleeding on Xarelto. BP at home when checked averages around 120/80. Review of Systems Musculoskeletal: Positive for myalgias. All other systems reviewed and are negative. [facility] 10-01-2023 Evaluation note Encounter Date Diagnosis Assessment [...] Pain in left leg (ICD-10 - M79.605) [facility] Other 05-17-2023 Note-advised to [facility]ian [facility] Note-BP controlled -ct medications: lisinopril 10mg every day, toprol tartrate 75mg bid, xarelto 20mg, aldactone 25mg qdUnMcCullough-[facility]05-17-2023 Note [id number] 1 for htn, will ct xarelto -DCCV x3 with amio, still has afib controlled rate and known hx of slow VR int0 40bpm -surgical ablation was mentioned as an option for ablation vs PPM with AVN ablation, patient does not want to consider at this time -will have him follow up [place] [address] [facility]23 NotePatient here for 6 mo [...] myalgias. All other systems reviewed and are negative.[facility] 04-01-2023 NoteUT Electrophysiology Consult Note Reason for [...] history was recently cardioverted by me at [facility] to SR . He states no [...] Hematologic/Lymphatic Hematologic/Lymphatic no swoll (more content not included)...[facility]/ADept. of Dermatology Evaluation noteNo assessment information available [facility] Work Phone: History general Narrative - Reported* Type Description Date Medical History heart disease Medical History melanoma Surgical History melanoma excision Hospitalization History see above [facility] Other reason for referral (narrative)* Name Reason for referral NA NA Dept. of Dermatology Summary Purpose Family History No Family History Records FoundNo Family History Records FoundNo Family History Records FoundNo Family History Records FoundNo Family History Records FoundNo Family History Records Found Advance Directives No Advanced Directives Records Found Advance Directive Response Recorded Date/ Time Advance Directives No October 01, 2023 7:32am Hospital Course Note MR#: [id number] [facility] Reece Hogue Admitted: 09/10/2018 Discharged: 09/14/2018 Date of : 1960 Physician: Primo Glaser MD DISCHARGE SUMMARYDISCHARGE ATTENDING PHYSICIAN: Primo Glaser [facility] PHYSICIAN: Dr. Jacobson at [phone].PRINCIPAL DIAGNOSIS: Atrial fibrillation/flutter, status post TEEconversion currently [...] section and content) DATE CREATED AUTHOR 10/23/2018 [facility] DATE CREATED AUTHOR AUTHOR'S ORGANIZ ATION 02/27/2023 [facility] DATE CREATED AUTHOR AUTHOR'S ORGANIZ ATION 03/25/2023 [facility] DATE CREATED AUTHOR AUTHOR'S ORGANIZ ATION 10/09/2023 [facility] DATE CREATED AUTHOR AUTHOR'S ORGANIZ ATION 11/18/2023 [facility] DATE CREATED AUTHOR AUTHOR'S ORGANIZ ATION 09/21/2024 [facility] Care Teams (unrecognized sec tion and content) [...] BE BASED ON THE PRIMARY CLINICAL RECORDS. [facility]. provides no warranty or guarantee of the accuracy or completeness of information in this document.
[2024-11-02 08:45] LABS: Basophils Absolute Auto 0.1 10^3/uL (0.0-0.1); Basophils Percent Auto 0.8 % (0.2-2.0); Eosinophils Absolute Auto 0.1 10^3/uL (0.0-0.7); Eosinophils Percent Auto 1.8 % (0.9-7.0); Hematocrit 48.9 % (42.0-54.0); Hemoglobin 16.7 g/dL (14.0-18.0); Immature Granulocytes Abs Auto 0.02 10^3/uL (0.00-0.03); Immature Granulocytes Pct Auto 0.3 % (0.0-0.5); Lymphocytes Absolute Auto 1.6 10^3/uL (1.2-3.8); Lymphocytes Percent Auto 22.4 % (20.5-60.0); Mean Corpuscular HGB Conc 34.2 g/dL (29.9-35.2); Mean Corpuscular Hemoglobin 31.6 pg (25.9-34.0); Mean Corpuscular Volume 92.6 fL (80.0-94.0); Mean Platelet Volume 8.7 fL (9.5-13.5); Monocytes Absolute Auto 0.8 10^3/uL (0.3-0.8); Monocytes Percent Auto 11.7 % (1.7-12.0); Neutrophils Absolute Auto 4.5 10^3/uL (1.4-6.5); Platelet Count 260 10^3/uL (150-450); Red Blood Count 5.28 10^6/uL (4.70-6.10); Red Cell Distribution Width 12.9 % (11.0-15.0); White Blood Count 7.2 10^3/uL (4.0-11.0)
[2024-11-02 11:15] LABS: Alanine Aminotransferase 32 U/L (16-63); Anion Gap 10.9; Aspartate Amino Transferase 24 U/L (15-37); BUN Creatinine Ratio 17.1; Calcium 9.2 mg/dL (8.5-10.1); Carbon Dioxide 29.9 mmol/L (21.0-32.0); Chloride 105 mmol/L (98-107); Chol HDL Ratio 3.1; Cholesterol 220 mg/dL (<=200); Estimated GFR (African America >60 (>=60 mL/min/1.73m^2); Estimated GFR (Non-African Ame >60 (>=60 mL/min/1.73m^2); Glucose 104 mg/dL (74-106); HDL Cholesterol 70 mg/dL (40-60); Potassium 4.8 mmol/L (3.5-5.1); Sodium 141 mmol/L (136-145); Triglycerides 50 mg/dL (<=150)
== END 2024-11-02 08:30 | disposition home or self-care (01) ==
LOC: LAB 08:31
PROVIDERS: PCP Family Medicine; Visit Provider Internal Medicine Cardiovascular Disease
DX: I11.9 Hypertensive heart disease without heart failure (principal); I48.20 Chronic atrial fibrillation, unspecified; Z79.01 Long term (current) use of anticoagulants; E78.5 Hyperlipidemia, unspecified
CPT/HCPCS: 36415; 80048; 80061; 84450; 84460; 85025

== ENCOUNTER 2024-12-21 07:48 | Outpatient (OUT) | payer OTHER, SELFPAY ==
--- OUTSIDE RECORDS SUMMARY | 2024-12-21 07:57 | XMS_ITS | CCD ---
Author Organization [facility] Care Team Providers Care Career Guidance Technician Name Role Phone PHYSICIAN, DEFAULT Unavailable Unavailable PHYSICIAN, DEFAULT Unavailable Unavailable CHLOÉ, HANI Unavailable Unavailable YURY FUNEZ AM Unavailable Unavailable KACY JACOBSON Unavailable Unavailable RODOLFOPRIMO COLLAZO R Unavailable Unavailable ID Unavailable Unavailable UNKNOWN, PROVIDER Unavailable Unavailable PHYSICIAN, DEFAULT Unavailable Unavailable PHYSICIAN, DEFAULT Unavailable Unavailable SABINA KACY Unavailable Unavailable ASHLEIGH ZARCOA Consulting Unavailable HOY ., DR WOODRUFF Primary Care Unavailable HAROLDO, RENU Admitting Unavailable HAROLDORENU Attending Unavailable RENU ZARCO Attending Unavailable HAROLDO, [...] DR WOODRUFF Attending Unavailable HOY ., DR WOODRFUF Consulting Unavailable ZIEBER, DR JO Brody Consulting [...] Provider MD Kacy Jacobson Primary Care Provider [phone] Sher Whitfield Unavailable Sher Whitfield Attending Unavailable Sher Whitfield Admitting Unavailable Kacy Jacobson Primary Care Unavailable Steph ENGEL, Gold Boles Attending Unavailable Steph ENGEL, Andjusto Boles Attending Unavailable Steph ENGEL, Andrius Boles Attending Unavailable Steph ENGEL, Gold Boles Attending Unavailable RANDY CARRANZA Attending Unavailable FILIPE MCNAIR Attending Unavailable Allergies Allergy Classification Reported Allergen(s) [...] Once a day Active (4 sources) Problems Active Problems Problem Classification Problem Date Documented Da te Episodic/Chronic Cardiac dysrhythmias (3 sources) Unspecified atrial fibrillation; 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: [Paroxysmal atrial fibrillation] Onset: 09-10-2018 Chronic Disorders of lipid metabolism (2 sources) Hyperlipidemia, unspecified; 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: [Hyperlipidemia, unspecified] Onset: 10-31-2024 Chronic Hypertension with complications and secondary hypertension (3 sources) Hypertensive heart disease without heart failure; 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: [HTN HEART DISEASE W/O HEART FAIL] Onset: 09-10-2022 Chronic Other aftercare (3 sources) correction (current) use of anticoagulants; 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: [CORRECTION (CURRENT) [...] [ANESTHESIA OF SKIN] Onset: 02-18-2023 Episodic Other nutritional; endocrine; and metabolic disorders (2 sources) Other obesity due to excess calories; 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: [Other obesity due to excess calories] Onset: 10-31-2024 Chronic Other nutritional; endocrine; and metabolic disorders (2 sources) Body mass index (BMI) 32.0-32.9, adult; 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: [Body mass index (BMI) 32.0-32.9, adult] Onset: 10-31-2024 Chronic Other screening for suspected conditions (not mental disorders or infectious disease) (1 source) Encounter for screening for malignant neoplasm of prostate; 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: [ENC SCREEN MALIG NEOPLASM PROSTATE] Onset: 01-26-2023 Episodic Pulmonary heart disease (2 sources) Pulmonary hypertension, unspecified; 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: [Pulmonary hypertension, unspecified] Onset: 10-31-2024 Chronic Residual codes; unclassified (6 sources) Obstructive sleep apnea (adult) (pediatric); 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: [...] atrial fibrillation; 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: [PERMANENT ATRIAL FIBRILLATION] Onset: 10-27-2022 Unclassified (6 sources) Chronic atrial fibrillation, unspecified; 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: [CHRONIC ATRIAL FIBRILLATION UNSPEC] Onset: 09-24-2022 Unclassified (1 source) Low back pain, unspecified; 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: [Low back pain, unspecified] Onset: 10-01-2023 Unclassified (1 source) Obesity, class 1; 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: [Obesity, class 1] Onset: 10-31-2024 Past or Other Problems Problem Classification Problem Date Documented Da te Episodic/Chronic Unclassified (1 source) Obesity, class 1; 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: [Obesity, class 1] Onset: 10-31-2024 Results Test Name Value Interpretation Reference Range Facility Office Visiton 10-31-2024 Follow-up visit [id number] Jaun Hogueyudi hitchcock D 1960 [facility] Provider Department Center 10/31/2024 FILIPE METCALF [facility] Family History Problem Relation Age of Onset Heart attack Maternal Grandfather Family Status - Relation Status Age at Maternal Grandfather Level of Service:47805 ID OFFICE/OUTPATIENT ESTABLISHED MOD MDM 30 MIN Reason for Visit and Comments: Atrial Fibrillation [80] - Denies bleeding on Xarelto and palpitations. Hypertension [707545] - Had echo in Nov 2023 after last apt in Oct 2023. Also had EUGENE's in February 2024. No recent labs. Denies chest pain and SOB. Weight Gain [180] - +38# since last year. He retired in January 2024. He does walk 4 miles a day on his home treadmill. Normal [facility] Office Visiton 11-10-2023 Follow-up visit [id number] JoaoSusanna hitchcock D 1960 M Date Provider Department Center 11/10/2023 RANDY JOHNSTON [facility] Family History Problem Relation Age of Onset Heart attack Maternal Grandfather Family Status - Relation Status Age at Maternal Grandfather Level of Service:06456 ID OFFICE/OUTPATIENT ESTABLISHED LOW MDM 20 MIN Normal [facility] Orders Onlyon 11-10-2023 Orders Only [id number] Jaun Hogueyudi hitchcock D 1960 M Date Provider Department Center 11/10/2023 CRISTINO AYALA [facility] Family History Problem Relation Age of Onset Heart attack Maternal Grandfather Family Status - Relation Status Age at Maternal Grandfather [facility] XR lumbar spine 6V w bending on 10-01-2023 XR lumbar spine 6V w bending [facility] [place] [address] [place], [place] [id number] XRay Report Signed Patient: Reece Hogue MR#: [id number] : 1960 Acct:[id number] Age/Sex: 63 / M ADM Date: 10/01/23 Loc: XD Room: Type: [facility] Attending Dr: Sher Whitfield MD Copies to: [...] Nila Christensen M.D.10/01/2023 12:35 PM Dictation Location: [place] [address] Transcribed By: [facility] 10/01/23 1235 Dictated By: Nila Christensen MD 10/01/23 1226 Signed By: 10/01/23 1235 [facility] Dermatopathologyon 3 Dermatopathology Name: REECE HOGUE Pathologist: JAIMEE NEGRETE MD Date of Procedure: 02/24/2023 Date Received: 02/24/2023 Date Reported 02/25/2023 Submitting Physician: LUKE REINOSO MD, Location: [facility] Copy To/Referring/Attending: MD KAUR PERDOMO FINAL DIAGNOSIS 4 SLIDES, [facility], #[id number] (BX: 02/03/2023) SKIN, LEFT NASAL SIDEWALL, SHAVE [...] A. 4 SLIDES, [facility], #[id number] (BX: 02/03/2023): SPECIMEN Procedure: Biopsy, shave Specimen [...] ADDITIONAL FINDINGS Additional Findings: None ADDITIONAL TESTING Soda Jerker Blocks: Normal Block: None Tumor Block: A1 Electronically Signed Out By JAIMEE NEGRETE MD/MARISSA Diagnostic interpretation performed at [facility] [address] [facility], [facility] [address] Clinical History: 8 MM, NEOPLASM OF UNSPECIFIED BEHAVIOR VS. LENTIGO Specimens Submitted As: A: 4 SLIDES, [facility], #[id number] (BX: 02/03/2023) Gross Description: Received for consultation from [facility] are four slides labeled [id number] (BX: 02/03/2023) along with the corresponding pathology report. Slide/Block Description 4 SLIDES, [id number]. Keep Slides: N Slides Returned: N Personal Consult: N Normal [facility] Comment on above: Performed By: [...] JO RUSSELL Date: 2023-02-18 14:29 Normal [facility] INSULINon 01-23-2023 Insulin 7.9 uIU/mL Normal 2.6-24.9 [facility] Comment on above: Performed By: #### T 7, URIC, TSH, CMP, LIPID #### [facility] [address] [address] [address] Ayush Sorto CBC AUTO DIFFon 01-22-2023 BASO # 0.0 103/ul Normal 0.0-0.1 [facility] Comment on above: Performed By: #### C BC #### [facility] [address] [place] [address] Dr. Ayush Sorto Basophils/100 WBC (Bld) 0.6 % Normal 0.2-2.0 [facility] Comment on above: Performed By: #### C BC #### [facility] [address] [place] [address] Dr. Ayush Sorto EO # 0.2 103/ul Normal 0.0-0.7 [facility] Comment on above: Performed By: #### C BC #### [facility] [address] [place] [address] Dr. Ayush Sorto Eosinophils/100 WBC (Bld) 2.3 % Normal 0.9-7.0 [facility] Comment on above: Performed By: #### C BC #### [facility] [address] [address] [address] Ayush Sorto Erythrocyte distribution width (RBC) [Ratio] 13.2 % Normal 11.0-15.0 [facility] Comment on above: Performed By: #### C BC #### [facility] [address] [place] [address] Dr. Ayush Sorto Hematocrit (Bld) [Volume fraction] 48.6 % Normal 42.0-54.0 [facility] Comment on above: Performed By: #### C BC #### [facility] [address] [place] [address] Dr. Ayush Sorto Hemoglobin (Bld) [Mass/Vol] 16.4 g/dL Normal 14.0-18.0 [facility] Comment on above: Performed By: #### C BC #### [facility] [address] [place] [address] Dr. Ayush Sorto IG # 0.02 10e3/ul Normal 0.00-0.03 [facility] Comment on above: Performed By: #### C BC #### [facility] [address] [place] [address] Dr. Ayush Sorto IG % 0.3 % Normal 0.0-0.5 [facility] Comment on above: Performed By: #### C BC #### [facility] [address] [place] [address] Dr. Ayush Sorto LYMPH # 1.6 103/ul Normal 1.2-3.8 [facility] Comment on above: Performed By: #### C BC #### [facility] [address] [place] [address] Dr. Ayush Sorto Lymphocytes/100 WBC (Bld) 24.7 % Normal 20.5-60.0 [facility] Comment on above: Performed By: #### C BC #### [facility] [address] [place] [address] Dr. Ayush Sorto MANUAL DIFF REQ NO Normal [facility] Comment on above: Performed By: #### C BC #### [facility] [address] [place] [address] Dr. Ayush Sorto MCH (RBC) [Entitic mass] 30.0 pg Normal 25.9-34.0 [facility] Comment on above: Performed By: #### C BC #### [facility] [address] [place] [address] Dr. Ayush Sorto MCHC (RBC) [Mass/Vol] 33.7 g/dL Normal 29.9-35.2 [facility] Comment on above: Performed By: #### C BC #### [facility] [address] [place] [address] Dr. Ayush Sorto MCV (RBC) [Entitic vol] 89.0 fL Normal 80.0-94.0 [facility] Comment on above: Performed By: #### C BC #### [facility] [address] [place] [address] Dr. Ayush Sorto MONO # 0.7 103/ul Normal 0.3-0.8 [facility] Comment on above: Performed By: #### C BC #### [facility] [address] [place] [address] Dr. Ayush Sorto Monocytes/100 WBC (Bld) 10.1 % Normal 1.7-12.0 [facility] Comment on above: Performed By: #### C BC #### [facility] [address] [place] [address] Dr. Ayush Sorto NEUT # 4.1 103/ul Normal 1.4-6.5 [facility] Comment on above: Performed By: #### C BC #### [facility] [address] [place] [address] Dr. Ayush Sorto Neutrophils/100 WBC (Bld) 62.0 % Normal 43.0-75.0 [facility] Comment on above: Performed By: #### C BC #### [facility] [address] [place] [address] Dr. Ayush Sorto Platelet mean volume (Bld) [Entitic vol] 8.6 fL Critically low 9.5-13.5 [facility] Comment on above: Performed By: #### C BC #### [facility] [address] [place] [address] Dr. Ayush Sorto PLT 248 103/ul Normal 150-450 [facility] Comment on above: Performed By: #### C BC #### [facility] [address] [place] [address] Dr. Ayush Sorto RBC 5.46 106/ul Normal 4.70-6.10 [facility] Comment on above: Performed By: #### C BC #### [facility] [address] [place] [address] Dr. Ayush Sorto WBC 6.6 103/ul Normal 4.0-11.0 [facility] Comment on above: Performed By: #### C BC #### [facility] [address] [address] [address] Ayush Sorto FREE THYROXINE INDEX T7on FTI 3.31 Normal 1.30-4.50 [facility] Comment on above: Performed By: #### T 7, URIC, TSH, CMP, LIPID #### [facility] [address] [place] [address] Dr. Ayush Sorto T3U 36.0 % Normal 33.0-40.0 [facility] Comment on above: Performed By: #### T 7, URIC, TSH, CMP, LIPID #### [facility] [address] [place] [address] Dr. Ayush Sorto T4 [Mass/Vol] 9.20 ug/dL Normal 4.50-12.10 [facility] Comment on above: Performed By: #### T 7, URIC, TSH, CMP, LIPID #### [facility] [address] [place] [address] Dr. Ayush Sorto GLYCOHEMOGLOBIN A1Con 2022 ADA RECOMMENDATION SEE BELOW Normal [facility] Comment on above: Result Comment: ADA RECOMMENDED LIMIT 4.0 - 6.0 ADA THERAPEUTIC TARGET < 7.0 ACTION SUGGESTED > 7.0 Performed By: #### T 7, URIC, TSH, CMP, LIPID #### [facility] [address] [place] [address] Dr. Ayush Sorto Glucose [Mass/Vol] 117 mg/dL Normal [facility] Comment on above: Performed By: #### T 7, URIC, TSH, CMP, LIPID #### [facility] [address] [place] [address] Dr. Ayush Sorto HbA1c (Bld) [Mass fraction] 5.7 % Normal 4.5-6.2 [facility] Comment on above: Performed By: #### T 7, URIC, TSH, CMP, LIPID #### [facility] [address] [place] [address] Dr. Ayush Sorto LIPID PROFILEon 01-22-2023 CHOL-HDL RATIO NORM SEE BELOW Normal [facility] Comment on above: Result Comment: 3.3 - 4.4 LOW RISK 4.4 - 7.1 AVERAGE RISK 7.1 - 11.0 MODERATE RISK >11.0 HIGH RISK Performed By: #### T 7, URIC, TSH, CMP, LIPID #### [facility] [address] [place] [address] Dr. Ayush Sorto Cholesterol [Mass/Vol] 216 mg/dL Critically high <=200 [facility] Comment on above: Performed By: #### T 7, URIC, TSH, CMP, LIPID #### [facility] [address] [address] [address] Ayush Sorto Cholesterol in HDL [Mass/Vol] 68 mg/dL Critically high 40-60 [facility] Comment on above: Performed By: #### T 7, URIC, TSH, CMP, LIPID #### [facility] [address] [place] [address] Dr. Ayush Sorto Cholesterol in LDL [Mass/Vol] 136.6 mg/dL Normal [facility] Comment on above: Performed By: #### T 7, URIC, TSH, CMP, LIPID #### [facility] [address] [place] [address] Dr. Ayush Sorto Cholesterol.total/C holesterol in HDL [Mass ratio] 3.2 {ratio} Normal [facility] Comment on above: Performed By: #### T 7, URIC, TSH, CMP, LIPID #### [facility] [address] [place] [address] Dr. Ayush Sorto HDL NORMAL > or = 60 mg/dl - LO W CARDIOVASCULAR RISK <40 mg/dl - HIGH CARDIOVASCULAR RISK Normal [facility] Comment on above: Performed By: #### T 7, URIC, TSH, CMP, LIPID #### [facility] [address] [place] [address] Dr. Ayush Sorto LDL CALC NORMAL SEE BELOW Normal [facility] Comment on above: Result Comment: <100 mg/dl OPTIMAL 100 - 129 mg/dl NEAR OR ABOVE OPTIMAL 130 - 159 mg/dl BORDERLINE HIGH 160 - 189 mg/dl HIGH >190 mg/dl VERY HIGH Performed By: #### T 7, URIC, TSH, CMP, LIPID #### [facility] [address] [address] [address] Ayush Sorto Triglyceride [Mass/Vol] 57 mg/dL Normal <=150 [facility] Comment on above: Performed By: #### T 7, URIC, TSH, CMP, LIPID #### [facility] [address] [address] [address] Ayush Sorto VLDL CALC 11.4 mg/dL Normal [facility] Comment on above: Performed By: #### T 7, URIC, TSH, CMP, LIPID #### [facility] [address] [place] [address] Dr. Ayush Sorto PROF 14(COMP METB)on 023 Albumin [Mass/Vol] 4.0 g/dL Normal 3.4-5.0 [facility] Comment on above: Performed By: #### T 7, URIC, TSH, CMP, LIPID #### [facility] [address] [place] [address] Dr. Ayush Sorto Albumin/Globulin [Mass ratio] 1.2 {ratio} Normal [facility] Comment on above: Performed By: #### T 7, URIC, TSH, CMP, LIPID #### [facility] [address] [place] [address] Dr. Ayush Sorto ALP [Catalytic activity/Vol] 85 U/L Normal 46-116 [facility] Comment on above: Performed By: #### T 7, URIC, TSH, CMP, LIPID #### [facility] [address] [place] [address] Dr. Ayush Sorto ALT [Catalytic activity/Vol] 28 U/L Normal 16-63 [facility] Comment on above: Performed By: #### T 7, URIC, TSH, CMP, LIPID #### [facility] [address] [place] [address] Dr. Ayush Sorto Anion gap [Moles/Vol] 12.9 mmol/L Normal [facility] Comment on above: Performed By: #### T 7, URIC, TSH, CMP, LIPID #### [facility] [address] [place] [address] Dr. Ayush Sorto AST [Catalytic activity/Vol] 23 U/L Normal 15-37 [facility] Comment on above: Performed By: #### T 7, URIC, TSH, CMP, LIPID #### [facility] [address] [address] [address] Ayush Sorto Bilirubin [Mass/Vol] 1.1 mg/dL Critically high 0.2-1.0 [facility] Comment on above: Performed By: #### T 7, URIC, TSH, CMP, LIPID #### [facility] [address] [address] [address] Ayush Sorto Calcium [Mass/Vol] 9.2 mg/dL Normal 8.5-10.1 [facility] Comment on above: Performed By: #### T 7, URIC, TSH, CMP, LIPID #### [facility] [address] [place] [address] Dr. Ayush Sorto Chloride [Moles/Vol] 103 mmol/L Normal 98-107 [facility] Comment on above: Performed By: #### T 7, URIC, TSH, CMP, LIPID #### [facility] [address] [place] [address] Dr. Ayush Sorto CO2 [Moles/Vol] 27.9 mmol/L Normal 21.0-32.0 [facility] Comment on above: Performed By: #### T 7, URIC, TSH, CMP, LIPID #### [facility] [address] [place] [address] Dr. Ayush Sorto Creatinine [Mass/Vol] 0.88 mg/dL Normal 0.70-1.30 [facility] Comment on above: Performed By: #### T 7, URIC, TSH, CMP, LIPID #### [facility] [address] [address] [address] Ayush Sorto EGFR-AF STATELESS >60 Normal >=60 [facility] Comment on above: Performed By: #### T 7, URIC, TSH, CMP, LIPID #### [facility] [address] [place] [address] Dr. Ayush Sorto EGFR-NON AF STATELESS >60 Normal >=60 [facility] Comment on above: Performed By: #### T 7, URIC, TSH, CMP, LIPID #### [facility] [address] [address] [address] Ayush Sorto Globulin (S) [Mass/Vol] 3.4 g/dL Normal [facility] Comment on above: Performed By: #### T 7, URIC, TSH, CMP, LIPID #### [facility] [address] [place] [address] Dr. Ayush Sorto Glucose [Mass/Vol] 93 mg/dL Normal 74-106 [facility] Comment on above: Performed By: #### T 7, URIC, TSH, CMP, LIPID #### [facility] [address] [place] [address] Dr. Ayush Sorto Potassium [Moles/Vol] 4.8 mmol/L Normal 3.5-5.1 [facility] Comment on above: Performed By: #### T 7, URIC, TSH, CMP, LIPID #### [facility] [address] [place] [address] Dr. Ayush Sorto Protein [Mass/Vol] 7.4 g/dL Normal 6.4-8.2 [facility] Comment on above: Performed By: #### T 7, URIC, TSH, CMP, LIPID #### [facility] [address] [place] [address] Dr. Ayush Sorto Sodium [Moles/Vol] 139 mmol/L Normal 136-145 [facility] Comment on above: Performed By: #### T 7, URIC, TSH, CMP, LIPID #### [facility] [address] [place] [address] Dr. Ayush Sorto Urea nitrogen [Mass/Vol] 23.0 mg/dL Critically high 7.0-18.0 [facility] Comment on above: Performed By: #### T 7, URIC, TSH, CMP, LIPID #### [facility] [address] [place] [address] Dr. Ayush Sorto Urea nitrogen/Creatinine [Mass ratio] 26.1 mg/mg Normal [facility] Comment on above: Performed By: #### T 7, URIC, TSH, CMP, LIPID #### [facility] [address] [place] [address] Dr. Ayush Sorto TSHon 01-22-2023 TSH 1.145 uIU/mL Normal 0.358-3.74 0 [facility] Comment on above: Performed By: #### T 7, URIC, TSH, CMP, LIPID #### [facility] [address] [place] [address] Dr. Ayush Sorto URIC ACID SERUMon 01-22-2023 Urate [Mass/Vol] 6.8 mg/dL Normal 3.5-7.2 [facility] Comment on above: Performed By: #### T 7, URIC, TSH, CMP, LIPID #### [facility] [address] [place] [address] Dr. Ayush Sorto VITAMIN D 25 OHon 01-22-2023 VIT D 25-OH 72.7 ng/mL Normal [facility] Comment on above: Performed By: #### V PLACIDO, PSASC #### [facility] [address] [place] [address] Dr. Ayush Sorto VIT D RANGES SEE BELOW Normal [facility] Comment on above: Result Comment: <20 ng/mL Vit D deficient 20 - <30 ng/mL Vit D insufficient 30 - 100 ng/mL Vit D sufficient >100 ng/mL Potential Toxicity Performed By: #### V PLACIDO, PSASC #### [facility] [address] [place] [address] Dr. Ayush Sorto PROF CHEM 8 (BAS METB)on Anion gap [Moles/Vol] 10.1 mmol/L Normal [facility] Comment on above: Performed By: #### T 7, URIC, TSH, CMP, LIPID #### [facility] [address] [place] [address] Dr. Ayush Sorto Calcium [Mass/Vol] 9.3 mg/dL Normal 8.5-10.1 [facility] Comment on above: Performed By: #### T 7, URIC, TSH, CMP, LIPID #### [facility] [address] [place] [address] Dr. Ayush Sorto Chloride [Moles/Vol] 102 mmol/L Normal 98-107 [facility] Comment on above: Performed By: #### T 7, URIC, TSH, CMP, LIPID #### [facility] [address] [address] [address] Ayush Sorto CO2 [Moles/Vol] 31.8 mmol/L Normal 21.0-32.0 [facility] Comment on above: Performed By: #### T 7, URIC, TSH, CMP, LIPID #### [facility] [address] [address] [address] Ayush Sorto Creatinine [Mass/Vol] 1.03 mg/dL Normal 0.70-1.30 [facility] Comment on above: Performed By: #### T 7, URIC, TSH, CMP, LIPID #### [facility] [address] [address] [address] Ayush Sorto EGFR-AF STATELESS >60 Normal >=60 [facility] Comment on above: Performed By: #### T 7, URIC, TSH, CMP, LIPID #### [facility] [address] [address] [address] Ayush Sorto EGFR-NON AF STATELESS >60 Normal >=60 [facility] Comment on above: Performed By: #### T 7, URIC, TSH, CMP, LIPID #### [facility] [address] [address] [address] Ayush Sorto Glucose [Mass/Vol] 121 mg/dL Critically high 74-106 [facility] Comment on above: Performed By: #### T 7, URIC, TSH, CMP, LIPID #### [facility] [address] [address] [address] Ayush Sorto Potassium [Moles/Vol] 4.9 mmol/L Normal 3.5-5.1 [facility] Comment on above: Performed By: #### T 7, URIC, TSH, CMP, LIPID #### [facility] [address] [address] [address] Ayush Sorto Sodium [Moles/Vol] 139 mmol/L Normal 136-145 [facility] Comment on above: Performed By: #### T 7, URIC, TSH, CMP, LIPID #### [facility] [address] [place], [place] [address] Dr. Ayush Sorto Urea nitrogen [Mass/Vol] 15.0 mg/dL Normal 7.0-18.0 [facility] Comment on above: Performed By: #### T 7, URIC, TSH, CMP, LIPID #### [facility] [address] [place], [place] [address] Dr. Ayush Sorto Urea nitrogen/Creatinine [Mass ratio] 14.6 mg/mg Normal [facility] Comment on above: Performed By: #### T 7, URIC, TSH, CMP, LIPID #### [facility] [address] [place], [place] [address] Dr. Ayush Sorto ECHOCARDIO M/2D COMPLETEon 1 11-24-2021 ECHOCARDIO M/2D COMPLETE Patient: REECE HOGUE Exam Date: 09/24/2022 : 1960 Gender:M Ordering : RENU ZARCO [facility] Admission #: [id number] Family : DR KACY JACOBSON . Order #: [id number] CLICK HERE TO VIEW EXAM ECHOCARDIOGRAM REPORT [...] M.D. on 09/24/2022 at 16:24 Normal [facility] CBC AUTO DIFFon 09-10-2022 BASO # 0.1 103/ul Normal 0.0-0.1 [facility] Comment on above: Performed By: #### C BC #### [facility] [address] [place] [address] Dr. Ayush Sorto Basophils/100 WBC (Bld) 0.8 % Normal 0.2-2.0 [facility] Comment on above: Performed By: #### C BC #### [facility] [address] [place] [address] Dr. Ayush Sorto EO # 0.1 103/ul Normal 0.0-0.7 [facility] Comment on above: Performed By: #### C BC #### [facility] [address] [place] [address] Dr. Ayush Sorto Eosinophils/100 WBC (Bld) 1.3 % Normal 0.9-7.0 [facility] Comment on above: Performed By: #### C BC #### [facility] [address] [place] [address] Dr. Ayush Sorto Erythrocyte distribution width (RBC) [Ratio] 12.8 % Normal 11.0-15.0 [facility] Comment on above: Performed By: #### C BC #### [facility] [address] [place] [address] Dr. Ayush Sorto Hematocrit (Bld) [Volume fraction] 48.5 % Normal 42.0-54.0 [facility] Comment on above: Performed By: #### C BC #### [facility] [address] [place] [address] Dr. Ayush Sorto Hemoglobin (Bld) [Mass/Vol] 16.2 g/dL Normal 14.0-18.0 [facility] Comment on above: Performed By: #### C BC #### [facility] [address] [place] [address] Dr. Ayush Sorto IG # 0.01 10e3/ul Normal 0.00-0.03 [facility] Comment on above: Performed By: #### C BC #### [facility] [address] [place] [address] Dr. Ayush Sorto IG % 0.2 % Normal 0.0-0.5 [facility] Comment on above: Performed By: #### C BC #### [facility] [address] [place] [address] Dr. Ayush Sorto LYMPH # 1.0 103/ul Critically low 1.2-3.8 [facility] Comment on above: Performed By: #### C BC #### [facility] [address] [place] [address] Dr. Ayush Sorto Lymphocytes/100 WBC (Bld) 15.6 % Critically low 20.5-60.0 [facility] Comment on above: Performed By: #### C BC #### [facility] [address] [place] [address] Dr. Ayush Sorto MANUAL DIFF REQ NO Normal [facility] Comment on above: Performed By: #### C BC #### [facility] [address] [place] [address] Dr. Ayush Sorto MCH (RBC) [Entitic mass] 30.5 pg Normal 25.9-34.0 [facility] Comment on above: Performed By: #### C BC #### [facility] [address] [place] [address] Dr. Ayush Sorto MCHC (RBC) [Mass/Vol] 33.4 g/dL Normal 29.9-35.2 [facility] Comment on above: Performed By: #### C BC #### [facility] [address] [address] [address] Ayush Sorto MCV (RBC) [Entitic vol] 91.3 fL Normal 80.0-94.0 [facility] Comment on above: Performed By: #### C BC #### [facility] [address] [address] [address] Ayush Sorto MONO # 0.6 103/ul Normal 0.3-0.8 [facility] Comment on above: Performed By: #### C BC #### [facility] [address] [address] [address] Ayush Sorto Monocytes/100 WBC (Bld) 9.2 % Normal 1.7-12.0 [facility] Comment on above: Performed By: #### C BC #### [facility] [address] [place] [address] Dr. Ayush Sorto NEUT # 4.5 103/ul Normal 1.4-6.5 [facility] Comment on above: Performed By: #### C BC #### [facility] [address] [place] [address] Dr. Ayush Sorto Neutrophils/100 WBC (Bld) 72.9 % Normal 43.0-75.0 [facility] Comment on above: Performed By: #### C BC #### [facility] [address] [address] [address] Ayush Sorto Platelet mean volume (Bld) [Entitic vol] 8.9 fL Critically low 9.5-13.5 [facility] Comment on above: Performed By: #### C BC #### [facility] [address] [address] [address] Ayush Sorto PLT 226 103/ul Normal 150-450 [facility] Comment on above: Performed By: #### C BC #### [facility] [address] [address] [address] Ayush Sorto RBC 5.31 106/ul Normal 4.70-6.10 [facility] Comment on above: Performed By: #### C BC #### [facility] [address] [address] [address] Ayush Sorto WBC 6.2 103/ul Normal 4.0-11.0 [facility] Comment on above: Performed By: #### C BC #### [facility] [address] [address] [address] Ayush Sorto LIPID PROFILEon 09-10-2022 CHOL-HDL RATIO NORM SEE BELOW Normal [facility] Comment on above: Result Comment: 3.3 - 4.4 LOW RISK 4.4 - 7.1 AVERAGE RISK 7.1 - 11.0 MODERATE RISK >11.0 HIGH RISK Performed By: #### T 7, URIC, TSH, CMP, LIPID #### [facility] [address] [place] [address] Dr. Ayush Sorto Cholesterol [Mass/Vol] 206 mg/dL Critically high <=200 [facility] Comment on above: Performed By: #### T 7, URIC, TSH, CMP, LIPID #### [facility] [address] [place] [address] Dr. Ayush Sorto Cholesterol in HDL [Mass/Vol] 73 mg/dL Critically high 40-60 [facility] Comment on above: Performed By: #### T 7, URIC, TSH, CMP, LIPID #### [facility] [address] [address] [address] Ayush Sorto Cholesterol in LDL [Mass/Vol] 123.2 mg/dL Normal [facility] Comment on above: Performed By: #### T 7, URIC, TSH, CMP, LIPID #### [facility] [address] [place] [address] Dr. Ayush Sorto Cholesterol.total/C holesterol in HDL [Mass ratio] 2.8 {ratio} Normal [facility] Comment on above: Performed By: #### T 7, URIC, TSH, CMP, LIPID #### [facility] [address] [place] [address] Dr. Ayush Sorto HDL NORMAL > or = 60 mg/dl - LO W CARDIOVASCULAR RISK <40 mg/dl - HIGH CARDIOVASCULAR RISK Normal [facility] Comment on above: Performed By: #### T 7, URIC, TSH, CMP, LIPID #### [facility] [address] [address] [address] Ayush Sorto LDL CALC NORMAL SEE BELOW Normal [facility] Comment on above: Result Comment: <100 mg/dl OPTIMAL 100 - 129 mg/dl NEAR OR ABOVE OPTIMAL 130 - 159 mg/dl BORDERLINE HIGH 160 - 189 mg/dl HIGH >190 mg/dl VERY HIGH Performed By: #### T 7, URIC, TSH, CMP, LIPID #### [facility] [address] [address] [address] Ayush Sorto Triglyceride [Mass/Vol] 49 mg/dL Normal <=150 [facility] Comment on above: Performed By: #### T 7, URIC, TSH, CMP, LIPID #### [facility] [address] [address] [address] Ayush Sorto VLDL CALC 9.8 mg/dL Normal [facility] Comment on above: Performed By: #### T 7, URIC, TSH, CMP, LIPID #### [facility] [address] [place] [address] Dr. Ayush Sorto PROF 14(COMP METB)on 022 Albumin [Mass/Vol] 4.0 g/dL Normal 3.4-5.0 [facility] Comment on above: Performed By: #### T 7, URIC, TSH, CMP, LIPID #### [facility] [address] [address] [address] Ayush Sorto Albumin/Globulin [Mass ratio] 1.2 {ratio} Normal [facility] Comment on above: Performed By: #### T 7, URIC, TSH, CMP, LIPID #### [facility] [address] [address] [address] Ayush Sorto ALP [Catalytic activity/Vol] 83 U/L Normal 46-116 [facility] Comment on above: Performed By: #### T 7, URIC, TSH, CMP, LIPID #### [facility] [address] [address] [address] Ayush Sorto ALT [Catalytic activity/Vol] 35 U/L Normal 16-63 [facility] Comment on above: Performed By: #### T 7, URIC, TSH, CMP, LIPID #### [facility] [address] [address] [address] Ayush Sorto Anion gap [Moles/Vol] 9.0 mmol/L Normal [facility] Comment on above: Performed By: #### T 7, URIC, TSH, CMP, LIPID #### [facility] [address] [place] [address] Dr. Ayush Sorto AST [Catalytic activity/Vol] 26 U/L Normal 15-37 [facility] Comment on above: Performed By: #### T 7, URIC, TSH, CMP, LIPID #### [facility] [address] [place] [address] Dr. Ayush Sorto Bilirubin [Mass/Vol] 1.0 mg/dL Normal 0.2-1.0 [facility] Comment on above: Performed By: #### T 7, URIC, TSH, CMP, LIPID #### [facility] [address] [place] [address] Dr. Ayush Sorto Calcium [Mass/Vol] 9.5 mg/dL Normal 8.5-10.1 [facility] Comment on above: Performed By: #### T 7, URIC, TSH, CMP, LIPID #### [facility] [address] [place] [address] Dr. Ayush Sorto Chloride [Moles/Vol] 105 mmol/L Normal 98-107 [facility] Comment on above: Performed By: #### T 7, URIC, TSH, CMP, LIPID #### [facility] [address] [place] [address] Dr. Ayush Sorto CO2 [Moles/Vol] 27.7 mmol/L Normal 21.0-32.0 [facility] Comment on above: Performed By: #### T 7, URIC, TSH, CMP, LIPID #### [facility] [address] [place] [address] Dr. Ayush Sorto Creatinine [Mass/Vol] 0.90 mg/dL Normal 0.70-1.30 [facility] Comment on above: Performed By: #### T 7, URIC, TSH, CMP, LIPID #### [facility] [address] [address] [address] Ayush Sorto EGFR-AF STATELESS >60 Normal >=60 [facility] Comment on above: Performed By: #### T 7, URIC, TSH, CMP, LIPID #### [facility] [address] [address] [address] Ayush Sorto EGFR-NON AF STATELESS >60 Normal >=60 [facility] Comment on above: Performed By: #### T 7, URIC, TSH, CMP, LIPID #### [facility] [address] [address] [address] Ayush Sorto Globulin (S) [Mass/Vol] 3.3 g/dL Normal [facility] Comment on above: Performed By: #### T 7, URIC, TSH, CMP, LIPID #### [facility] [address] [place] [address] Dr. Ayush Sorto Glucose [Mass/Vol] 105 mg/dL Normal 74-106 [facility] Comment on above: Performed By: #### T 7, URIC, TSH, CMP, LIPID #### [facility] [address] [address] [address] Ayush Sorto Potassium [Moles/Vol] 4.7 mmol/L Normal 3.5-5.1 [facility] Comment on above: Performed By: #### T 7, URIC, TSH, CMP, LIPID #### [facility] [address] [address] [address] Ayush Sorto Protein [Mass/Vol] 7.3 g/dL Normal 6.4-8.2 [facility] Comment on above: Performed By: #### T 7, URIC, TSH, CMP, LIPID #### [facility] [address] [address] [address] Ayush Sorto Sodium [Moles/Vol] 137 mmol/L Normal 136-145 [facility] Comment on above: Performed By: #### T 7, URIC, TSH, CMP, LIPID #### [facility] [address] [address] [address] Ayush Sorto Urea nitrogen [Mass/Vol] 19.0 mg/dL Critically high 7.0-18.0 [facility] Comment on above: Performed By: #### T 7, URIC, TSH, CMP, LIPID #### [facility] [address] [place], [place] [address] Dr. Ayush Sorto Urea nitrogen/Creatinine [Mass ratio] 21.1 mg/mg Normal [facility] Comment on above: Performed By: #### T 7, URIC, TSH, CMP, LIPID #### [facility] [address] [place], [place] [address] Dr. Ayush Sorto BASIC METABOLIC PANELon 10-2 Calcium mass conc 9.3 mg/dL Normal 8.6-10.3 [facility] Comment on above: Order Comment: No: D o not add to previous draw Performed By: #### 0 0121, 66761, 05270 ####[facility] [place] [address], [facility] Chloride molar conc 102 mmol/L Normal 98-107 [facility] Comment on above: Order Comment: No: D o not add to previous draw Performed By: #### 0 0121, 27217, 22852 ####[facility] [address], [facility] CO2 molar conc 27 mmol/L Normal 21-31 [facility] Comment on above: Order Comment: No: D o not add to previous draw Performed By: #### 0 0121, 64026, 72379 ####[facility] [address], [place] Creatinine mass conc 0.73 mg/dL Normal 0.70-1.30 [facility] Comment on above: Order Comment: No: D o not add to previous draw Performed By: #### 0 0121, 17080, 72732 ####[facility] [address], [place] GFR/1.73 sq M predicted among blacks MDRD vol rate/area (S/P/Bld) mL/min/{1.73_m2} Normal >60 [facility] Comment on above: Order Comment: No: D o not add to previous draw Performed By: #### 0 0121, 26782, 14990 ####[facility] [place] [address], [facility] GFR/1.73 sq M predicted among non-blacks MDRD vol rate/area (S/P/Bld) mL/min/{1.73_m2} Normal >60 [facility] Comment on above: Order Comment: No: D o not add to previous draw Performed By: #### 0 0121, 16588, 83363 ####[facility] [place] [address], [facility] Glucose mass conc 109 mg/dL High 70-100 [facility] Comment on above: Order Comment: No: D o not add to previous draw Performed By: #### 0 0121, 33394, 65329 ####[facility] [address], [facility] Potassium molar conc 4.1 mmol/L Normal 3.5-5.1 [facility] Comment on above: Order Comment: No: D o not add to previous draw Performed By: #### 0 0121, 59006, 60636 ####[facility] [address], [facility] Sodium molar conc 136 mmol/L Normal 136-145 [facility] Comment on above: Order Comment: No: D o not add to previous draw Performed By: #### 0 0121, 49054, 20488 ####[facility] [place] [address], [facility] Urea nitrogen mass conc 10 mg/dL Normal 7-25 [facility] Comment on above: Order Comment: No: D o not add to previous draw Performed By: #### 0 0121, 58762, 52155 ####[facility] CBC COMPLETE BLOOD COUNTon 1 - Erythrocyte distribution width Auto Ratio (RBC) 12.8 % Normal 11.5-15.0 [facility] Comment on above: Order Comment: No: D o not add to previous draw Performed By: #### 0 0121, 52925, 92843 ####[facility] [facility] Hematocrit Auto Volume Fraction (Bld) 45.7 % Normal 39.0-50.0 [facility] Comment on above: Order Comment: No: D o not add to previous draw Performed By: #### 0 0121, 87424, 65056 ####[facility] Hemoglobin mass conc (Bld) 15.6 g/dL Normal 13.0-17.0 [facility] Comment on above: Order Comment: No: D o not add to previous draw Performed By: #### 0 0121, 24396, 02122 ####[facility] [facility].[address] MCH Auto Entitic mass (RBC) 30.4 pg Normal 27.0-33.0 [facility] Comment on above: Order Comment: No: D o not add to previous draw Performed By: #### 0 0121, 27891, 29186 ####[facility] [facility].[address] MCHC Auto mass conc (RBC) 34.1 g/dL Normal 32.0-35.0 [facility] Comment on above: Order Comment: No: D o not add to previous draw Performed By: #### 0 0121, 82447, 67779 ####[facility] [facility] MCV Auto Entitic volume (RBC) 89.1 fL Normal 82.0-98.0 [facility] Comment on above: Order Comment: No: D o not add to previous draw Performed By: #### 0 0121, 37915, 77407 ####[facility] [facility].[address] Nucleated RBC/100 WBC Ratio (Bld) 0 % Normal 0-0 [facility] Comment on above: Order Comment: No: D o not add to previous draw Performed By: #### 0 0121, 26218, 37377 ####[facility] [facility].[address] PLAT CNT 218 10*3/uL Normal 150-400 [facility] Comment on above: Order Comment: No: D o not add to previous draw Performed By: #### 0 0121, 79239, 00027 ####[facility] RBC Auto #/vol (Bld) 5.13 10*6/uL Normal 4.20-5.70 [facility] Comment on above: Order Comment: No: D o not add to previous draw Performed By: #### 0 0121, 87973, 14057 ####[facility] [facility].[address] WBC Auto #/vol (Bld) 6.96 10*3/uL Normal 4.00-10.60 [facility] Comment on above: Order Comment: No: D o not add to previous draw Performed By: #### 0 0121, 86244, 51215 ####[facility] [facility].[address] Cardiovascular Lab Reporton 09-14-2018 Cardiovascular Lab Report [facility] #: [id number] Physician: Lizette Montano M.D.Medicine Service Date: 09/13/2018Division of Birthdate: 1960Cardiology Room #: 3CD [id number] CardiovascularServicesUniversi [facility] HospitalNzivalzLvgpsj[address], [place] [address]Spbwo Fax Cardiovascular Laboratory ReportPROCEDURE: Transesophageal echocardiogram and cardioversion.INDICATION: Atrial fibrillation.FELLOW: Tanya Botello M.D.PROCEDURE IN DETAIL: An informed consent was obtained from the patientafter explaining indications, risks, and benefits, and alternatives. Thepatient understood and agreed and signed the consent form. The patient wasbrought to the irrigation laborer and MOJGAN was performed under conscious sedation. Thepatient obtained a total of 10 mg of Versed and 100 mcg of fentanyl duringthe procedure. The transesophageal echocardiogram did not show anythrombus in the left atrial appendage. Full MOJGAN report is dictatedelsewohiohealth [facility]. After the transesophageal echocardiogram, synchronized biphasiccardioversion was done with 300 joules of energy. The patient successfullyconverted to sinus rhythm as evidenced by the EKG done postprocedure. Nocomplications throughout the procedure.Electronically Signed by:Lizette Haines M.D. 09/19/2018 08:34 P Lizette Haines M.D. I was present for the entire procedure. Date Dict: 09/13/2018/11:49 Yudi/Al Brownlee Trans: 09/14/2018 06:55 A/Marguerite_JN:[id number]: Kacy Jacobson M.D. [address] [facility] [id number] Yury Funez M.D. [address] [place] [address] Normal [facility] APTTon 09-13-2018 aPTT Coag time (Bld) 86.4 s Critically high 25.0-35.0 [facility] Comment on above: Order Comment: No: D [...] PRESENCEOF HEPARIN. Performed By: #### 0 0121, 96833, 13536 ####[facility] [facility].[address] aPTT Coag time (Bld) 41.4 s High 25.0-35.0 [facility] Comment on above: Result Comment: ALL RESULTS [...] THIS PURPOSE. Performed By: #### 0 0121, 13595, 00095 ####[facility] [facility].[address] UFH HEPARIN ASSAYon 09-13-20 18 UNFRACTIONATED HEPARIN 0.64 IU/mL Normal 0.30-0.70 The [facility] Comment on above: Result Comment: [place] roxaban and Apixaban will interfere with the anti Xa assay used tomonitor UFH and LMWH. Performed By: #### 0 0121, 62795, 83948 ####[facility] [facility].[address] UNFRACTIONATED HEPARIN 0.25 IU/mL Low 0.30-0.70 The [facility] Comment on above: Result Comment: [place] roxaban and Apixaban will interfere with the anti Xa assay used tomonitor UFH and LMWH. Performed By: #### 0 0121, 31396, 94391 ####[place] [address] [facility].[address] BASIC METABOLIC PANELon 10-2 Calcium mass conc 8.6 mg/dL Normal 8.6-10.3 [facility] Comment on above: Order Comment: No: D o not add to previous draw Performed By: #### 0 0121, 29025, 18213 ####[facility] [id number], [facility] Chloride molar conc 106 mmol/L Normal 98-107 [facility] Comment on above: Order Comment: No: D o not add to previous draw Performed By: #### 0 0121, 38346, 17914 ####[facility] [address], [place] CO2 molar conc 25 mmol/L Normal 21-31 The [facility] Comment on above: Order Comment: No: D o not add to previous draw Performed By: #### 0 0121, 11296, 80137 ####[facility] [place] [address], [place] Creatinine mass conc 0.64 mg/dL Low 0.70-1.30 The [facility] Comment on above: Order Comment: No: D o not add to previous draw Performed By: #### 0 0121, 62170, 81519 ####[facility] [address], [place] GFR/1.73 sq M predicted among blacks MDRD vol rate/area (S/P/Bld) mL/min/{1.73_m2} Normal >60 The [facility] Comment on above: Order Comment: No: D o not add to previous draw Performed By: #### 0 0121, 47363, 77815 ####[facility] [address], [place] GFR/1.73 sq M predicted among non-blacks MDRD vol rate/area (S/P/Bld) mL/min/{1.73_m2} Normal >60 The [facility] Comment on above: Order Comment: No: D o not add to previous draw Performed By: #### 0 0121, 62375, 31392 ####[facility] [address], [facility] Glucose mass conc 100 mg/dL Normal 70-100 The [facility] Comment on above: Order Comment: No: D o not add to previous draw Performed By: #### 0 0121, 63692, 22688 ####[facility] [place] [address], [facility] Potassium molar conc 4.0 mmol/L Normal 3.5-5.1 [facility] Comment on above: Order Comment: No: D o not add to previous draw Performed By: #### 0 0121, 08382, 96440 ####[facility] [facility].[address] Sodium molar conc 137 mmol/L Normal 136-145 [facility] Comment on above: Order Comment: No: D o not add to previous draw Performed By: #### 0 0121, 50489, 74141 ####[facility] [facility].[address] Urea nitrogen mass conc 14 mg/dL Normal 7-25 [facility] Comment on above: Order Comment: No: D o not add to previous draw Performed By: #### 0 0121, 74163, 87695 ####[facility] [facility].[address] CBC W/DIFFon 09-12-2018 ABS BASOPHILS 0.0 10*3/uL Normal 0.0-0.2 [facility] Comment on above: Order Comment: No: D o not add to previous draw Performed By: #### 0 0121, 25668, 97022 ####[facility] [facility].[address] ABS IMM GRANS 0.0 10*3/uL Normal 0.0-0.2 [facility] Comment on above: Order Comment: No: D o not add to previous draw Performed By: #### 0 0121, 21562, 23047 ####[facility] [place] [address], [facility] ABS NEUTROPHILS 3.1 10*3/uL Normal 1.6-7.6 [facility] Comment on above: Order Comment: No: D o not add to previous draw Performed By: #### 0 0121, 26985, 96225 ####[facility] [address], [facility] Basophils Auto #/vol (Bld) 0.7 % Normal 0.0-1.0 [facility] Comment on above: Order Comment: No: D o not add to previous draw Performed By: #### 0 0121, 37742, 23476 ####[facility] [facility] [place] [address], [facility] Eosinophils Auto #/vol (Bld) 0.2 10*3/uL Normal 0.0-0.5 [facility] Comment on above: Order Comment: No: D o not add to previous draw Performed By: #### 0 0121, 16226, 02596 ####[facility] [facility] [place] [address], [facility] Eosinophils/100 WBC Auto (Bld) 3.6 % Normal 0.0-6.0 [facility] Comment on above: Order Comment: No: D o not add to previous draw Performed By: #### 0 0121, 09764, 70062 ####[facility] [facility] [place] [address], [facility] Erythrocyte distribution width Auto Ratio (RBC) 12.7 % Normal 11.5-15.0 [facility] Comment on above: Order Comment: No: D o not add to previous draw Performed By: #### 0 0121, 86245, 94968 ####[facility] [place] [address], [facility] Hematocrit Auto Volume Fraction (Bld) 45.5 % Normal 39.0-50.0 [facility] Comment on above: Order Comment: No: D o not add to previous draw Performed By: #### 0 0121, 03538, 40181 ####[facility] [facility].[address] Hemoglobin mass conc (Bld) 15.2 g/dL Normal 13.0-17.0 [facility] Comment on above: Order Comment: No: D o not add to previous draw Performed By: #### 0 0121, 94873, 67003 ####[facility] [facility].[address] IMMATURE GRANS 0.4 % Normal 0.0-1.0 [facility] Comment on above: Order Comment: No: D o not add to previous draw Performed By: #### 0 0121, 68815, 28316 ####[facility] [facility].[address] Lymphocytes Auto #/vol (Bld) 1.5 10*3/uL Normal 1.2-4.0 [facility] Comment on above: Order Comment: No: D o not add to previous draw Performed By: #### 0 0121, 73867, 55309 ####[place] [address] [facility].[address] Lymphocytes/100 WBC Auto (Bld) 27.8 % Normal 20.0-45.0 [facility] Comment on above: Order Comment: No: D o not add to previous draw Performed By: #### 0 0121, 60151, 40894 ####[facility] [facility].[address] MCH Auto Entitic mass (RBC) 30.0 pg Normal 27.0-33.0 [facility] Comment on above: Order Comment: No: D o not add to previous draw Performed By: #### 0 0121, 68048, 11114 ####[facility] MCHC Auto mass conc (RBC) 33.4 g/dL Normal 32.0-35.0 [facility] Comment on above: Order Comment: No: D o not add to previous draw Performed By: #### 0 0121, 89507, 21522 ####[facility].[address] MCV Auto Entitic volume (RBC) 89.9 fL Normal 82.0-98.0 [facility] Comment on above: Order Comment: No: D o not add to previous draw Performed By: #### 0 0121, 01590, 83302 ####[facility] [facility].[address] Monocytes Auto #/vol (Bld) 0.6 10*3/uL Normal 0.1-1.0 [facility] Comment on above: Order Comment: No: D o not add to previous draw Performed By: #### 0 0121, 79286, 40920 ####[facility] [facility].[address] MONOS 11.4 % Normal 5.0-12.0 [facility] Comment on above: Order Comment: No: D o not add to previous draw Performed By: #### 0 0121, 94679, 28205 ####[facility] [facility].[address] Neutrophils/100 WBC Auto (Bld) 56.1 % Normal 40.0-72.0 [facility] Comment on above: Order Comment: No: D o not add to previous draw Performed By: #### 0 0121, 98178, 65481 ####[facility] [place] [address], [facility] Nucleated RBC/100 WBC Ratio (Bld) 0 % Normal 0-0 [facility] Comment on above: Order Comment: No: D o not add to previous draw Performed By: #### 0 0121, 79496, 47327 ####[facility] PLAT CNT 188 10*3/uL Normal 150-400 [facility] Comment on above: Order Comment: No: D o not add to previous draw Performed By: #### 0 0121, 82228, 35670 ####[facility] RBC Auto #/vol (Bld) 5.06 10*6/uL Normal 4.20-5.70 [facility] Comment on above: Order Comment: No: D o not add to previous draw Performed By: #### 0 0121, 16143, 88822 ####[facility].[address] WBC Auto #/vol (Bld) 5.54 10*3/uL Normal 4.00-10.60 [facility] Comment on above: Order Comment: No: D o not add to previous draw Performed By: #### 0 0121, 71356, 53279 ####[place] [address] [facility].[address] MAGNESIUM BLOODon 09-12-2018 Magnesium mass conc 1.9 mg/dL Normal 1.9-2.7 [facility] Comment on above: Order Comment: No: D o not add to previous draw Performed By: #### 0 0121, 00735, 24664 ####[facility] UFH HEPARIN ASSAYon 09-12-20 18 UNFRACTIONATED HEPARIN 0.26 IU/mL Low 0.30-0.70 [facility] Comment on above: Result Comment: [place] roxaban and Apixaban will interfere with the anti Xa assay used tomonitor UFH and LMWH. Performed By: #### 0 0121, 16949, 88721 ####[facility] UNFRACTIONATED HEPARIN 0.72 IU/mL High 0.30-0.70 [facility] Comment on above: Result Comment: [place] roxaban and Apixaban will interfere with the anti Xa assay used tomonitor UFH and LMWH. Performed By: #### 0 0121, 07946, 63600 ####[facility] UNFRACTIONATED HEPARIN 0.49 IU/mL Normal 0.30-0.70 [facility] Comment on above: Result Comment: [place] roxaban and Apixaban will interfere with the anti Xa assay used tomonitor UFH and LMWH. Performed By: #### 0 0121, 14403, 85519 ####[facility] APTTon 09-11-2018 aPTT Coag time (Bld) 101.0 s Critically high 25.0-35.0 [facility] Comment on above: Order Comment: No: D [...] RNAT 615 Performed By: #### 0 0121, 17958, 34188 ####[facility] BASIC METABOLIC PANELon 2 Calcium mass conc 8.9 mg/dL Normal 8.6-10.3 [facility] Comment on above: Order Comment: No: D o not add to previous draw Performed By: #### 0 0121, 90956, 92479 ####[facility] [address], [facility] Chloride molar conc 106 mmol/L Normal 98-107 [facility] Comment on above: Order Comment: No: D o not add to previous draw Performed By: #### 0 0121, 14694, 86010 ####[facility] [place] [address], [place] CO2 molar conc 25 mmol/L Normal 21-31 [facility] Comment on above: Order Comment: No: D o not add to previous draw Performed By: #### 0 0121, 87823, 31593 ####[facility] [facility] [place] [address], [facility] Creatinine mass conc 0.84 mg/dL Normal 0.70-1.30 [facility] Comment on above: Order Comment: No: D o not add to previous draw Performed By: #### 0 0121, 18623, 60460 ####[facility] [facility] [place] [address], [place] GFR/1.73 sq M predicted among blacks MDRD vol rate/area (S/P/Bld) mL/min/{1.73_m2} Normal >60 [facility] Comment on above: Order Comment: No: D o not add to previous draw Performed By: #### 0 0121, 81500, 20109 ####[facility] [facility] [place] [address], [facility] GFR/1.73 sq M predicted among non-blacks MDRD vol rate/area (S/P/Bld) mL/min/{1.73_m2} Normal >60 [facility] Comment on above: Order Comment: No: D o not add to previous draw Performed By: #### 0 0121, 96160, 35051 ####[facility] [address], [place] Glucose mass conc 103 mg/dL High 70-100 [facility] Comment on above: Order Comment: No: D o not add to previous draw Performed By: #### 0 0121, 09922, 40493 ####[facility] [facility].[address] Potassium molar conc 4.0 mmol/L Normal 3.5-5.1 [facility] Comment on above: Order Comment: No: D o not add to previous draw Performed By: #### 0 0121, 01318, 34002 ####[facility] [facility].[address] Sodium molar conc 138 mmol/L Normal 136-145 [facility] Comment on above: Order Comment: No: D o not add to previous draw Performed By: #### 0 0121, 88883, 66341 ####[facility] [facility].[address] Urea nitrogen mass conc 20 mg/dL Normal 7-25 [facility] Comment on above: Order Comment: No: D o not add to previous draw Performed By: #### 0 0121, 33882, 66782 ####[facility] [facility].[address] CBC W/DIFFon 09-11-2018 ABS BASOPHILS 0.0 10*3/uL Normal 0.0-0.2 [facility] Comment on above: Order Comment: No: D o not add to previous draw Performed By: #### 5 0103 ####[facility] [facility].[address] ABS IMM GRANS 0.0 10*3/uL Normal 0.0-0.2 [facility] Comment on above: Order Comment: No: D o not add to previous draw Performed By: #### 5 0103 ####[facility] [facility].[address] ABS NEUTROPHILS 3.1 10*3/uL Normal 1.6-7.6 [facility] Comment on above: Order Comment: No: D o not add to previous draw Performed By: #### 5 0103 ####[facility] [place] [address], [facility] Basophils Auto #/vol (Bld) 0.8 % Normal 0.0-1.0 [facility] Comment on above: Order Comment: No: D o not add to previous draw Performed By: #### 5 0103 ####[facility] [place] [address], [facility] Eosinophils Auto #/vol (Bld) 0.2 10*3/uL Normal 0.0-0.5 [facility] Comment on above: Order Comment: No: D o not add to previous draw Performed By: #### 5 0103 ####[facility] [place] [address], [facility] Eosinophils/100 WBC Auto (Bld) 3.5 % Normal 0.0-6.0 [facility] Comment on above: Order Comment: No: D o not add to previous draw Performed By: #### 5 0103 ####[facility] Erythrocyte distribution width Auto Ratio (RBC) 12.8 % Normal 11.5-15.0 [facility] Comment on above: Order Comment: No: D o not add to previous draw Performed By: #### 5 0103 ####[facility] Hematocrit Auto Volume Fraction (Bld) 45.3 % Normal 39.0-50.0 [facility] Comment on above: Order Comment: No: D o not add to previous draw Performed By: #### 5 0103 ####[facility] Hemoglobin mass conc (Bld) 15.3 g/dL Normal 13.0-17.0 [facility] Comment on above: Order Comment: No: D o not add to previous draw Performed By: #### 5 0103 ####[facility] IMMATURE GRANS 0.4 % Normal 0.0-1.0 [facility] Comment on above: Order Comment: No: D o not add to previous draw Performed By: #### 5 0103 ####[facility] Lymphocytes Auto #/vol (Bld) 1.4 10*3/uL Normal 1.2-4.0 [facility] Comment on above: Order Comment: No: D o not add to previous draw Performed By: #### 5 0103 ####[facility] Lymphocytes/100 WBC Auto (Bld) 25.9 % Normal 20.0-45.0 [facility] Comment on above: Order Comment: No: D o not add to previous draw Performed By: #### 5 0103 ####[facility] MCH Auto Entitic mass (RBC) 30.5 pg Normal 27.0-33.0 [facility] Comment on above: Order Comment: No: D o not add to previous draw Performed By: #### 5 0103 ####[facility] MCHC Auto mass conc (RBC) 33.8 g/dL Normal 32.0-35.0 [facility] Comment on above: Order Comment: No: D o not add to previous draw Performed By: #### 5 0103 ####[facility] MCV Auto Entitic volume (RBC) 90.2 fL Normal 82.0-98.0 [facility] Comment on above: Order Comment: No: D o not add to previous draw Performed By: #### 5 0103 ####[facility] [place] [address], [facility] Monocytes Auto #/vol (Bld) 0.5 10*3/uL Normal 0.1-1.0 [facility] Comment on above: Order Comment: No: D o not add to previous draw Performed By: #### 5 0103 ####[facility] [facility].[address] MONOS 10.2 % Normal 5.0-12.0 [facility] Comment on above: Order Comment: No: D o not add to previous draw Performed By: #### 5 0103 ####[facility] [facility].[address] Neutrophils/100 WBC Auto (Bld) 59.2 % Normal 40.0-72.0 [facility] Comment on above: Order Comment: No: D o not add to previous draw Performed By: #### 5 0103 ####[facility] [facility].[address] Nucleated RBC/100 WBC Ratio (Bld) 0 % Normal 0-0 [facility] Comment on above: Order Comment: No: D o not add to previous draw Performed By: #### 5 3 ####[facility] [place] [address], [facility] PLAT CNT 226 10*3/uL Normal 150-400 [facility] Comment on above: Order Comment: No: D o not add to previous draw Performed By: #### 5 0103 ####[facility] [place] [address], [facility] RBC Auto #/vol (Bld) 5.02 10*6/uL Normal 4.20-5.70 [facility] Comment on above: Order Comment: No: D o not add to previous draw Performed By: #### 5 0103 ####[facility] WBC Auto #/vol (Bld) 5.21 10*3/uL Normal 4.00-10.60 [facility] Comment on above: Order Comment: No: D o not add to previous draw Performed By: #### 5 0103 ####[facility] MAGNESIUM BLOODon 09-11-2018 Magnesium mass conc 1.8 mg/dL Low 1.9-2.7 [facility] Comment on above: Order Comment: No: D o not add to previous draw Performed By: #### 0 0121, 86778, 43142 ####[facility] PHOSPHORUS BLOODon 8 Phosphate mass conc 3.0 mg/dL Normal 2.5-5.0 [facility] Comment on above: Order Comment: No: D o not add to previous draw Performed By: #### 0 0121, 45071, 24228 ####[facility] PROTHROMBIN TIMEon 8 INR Coag RelTime (PPP) 1.01 {INR} Normal 0.91-1.16 [facility] Comment on above: Order Comment: No: D [...] OF ACTION, CLINICALEFFECTIVENESS, AND OPTIMAL THERAPEUTIC RANGE. [id number]. Performed By: #### 0 0121, 04357, 63515 ####[facility] [facility].[address] Prothrombin time (PT) Coag time (PPP) 13.3 s Normal 12.3-14.8 [facility] Comment on above: Order Comment: No: D o not add to previous draw Result Comment: ALL RESULTS MUST BE INTERPRETED WITH RESPECT TO BLOOD DRAWING ARTIFACTOR DILUTION ERROR OF ANTICOAGULANT AT THE TIME OF SAMPLING. Performed By: #### 0 0121, 20444, 35147 ####[facility] [facility].[address] TROPONIN-Ion 09-11-2018 Troponin I.cardiac mass conc 0.00 ng/mL Normal 0.00-0.04 [facility] Comment on above: Order Comment: No: D o not add to previous draw Result Comment: REFE RENCE RANGES: 0.00 - 0.14 ng/ml NEGATIVE 0.15 - 0.25 ng/ml INDETERMINATE > 0.25 ng/ml INDICATIVE OF AN M.I. Performed By: #### 3 5200 ####[facility] [place] [address], [facility] UFH HEPARIN ASSAYon 09-11-20 18 UNFRACTIONATED HEPARIN 0.40 IU/mL Normal 0.30-0.70 [facility] Comment on above: Result Comment: [place] roxaban and Apixaban will interfere with the anti Xa assay used tomonitor UFH and LMWH. Performed By: #### 0 0121, 28173, 05895 ####[facility] [place] [address], [facility] UNFRACTIONATED HEPARIN 0.39 IU/mL Normal 0.30-0.70 [facility] Comment on above: Result Comment: [place] roxaban and Apixaban will interfere with the anti Xa assay used tomonitor UFH and LMWH. Performed By: #### 0 0121, 13841, 88258 ####[facility] [facility].[address] UNFRACTIONATED HEPARIN 0.70 IU/mL Normal 0.30-0.70 [facility] Comment on above: Result Comment: [place] roxaban and Apixaban will interfere with the anti Xa assay used tomonitor UFH and LMWH. Performed By: #### 0 0121, 35787, 61303 ####[facility] [facility].[address] UNFRACTIONATED HEPARIN 0.49 IU/mL Normal 0.30-0.70 [facility] Comment on above: Result Comment: [place] roxaban and Apixaban will interfere with the anti Xa assay used tomonitor UFH and LMWH. Performed By: #### 3 0477 ####[facility] [facility].[address] APTTon 09-10-2018 aPTT Coag time (Bld) 26.2 s Normal 25.0-35.0 [facility] Comment on above: Result Comment: ALL RESULTS [...] THIS PURPOSE. Performed By: #### 5 6101, 14853 ####[facility] [place] [address], [facility] CBC W/DIFFon 09-10-2018 ABS BASOPHILS 0.0 10*3/uL Normal 0.0-0.2 [facility] Comment on above: Order Comment: No: D o not add to previous draw Performed By: #### 5 0103 ####[facility] ABS IMM GRANS 0.0 10*3/uL Normal 0.0-0.2 [facility] Comment on above: Order Comment: No: D o not add to previous draw Performed By: #### 5 0103 ####[facility] ABS NEUTROPHILS 6.0 10*3/uL Normal 1.6-7.6 [facility] Comment on above: Order Comment: No: D o not add to previous draw Performed By: #### 5 0103 ####[facility] Basophils Auto #/vol (Bld) 0.4 % Normal 0.0-1.0 [facility] Comment on above: Order Comment: No: D o not add to previous draw Performed By: #### 5 0103 ####[facility] Eosinophils Auto #/vol (Bld) 0.1 10*3/uL Normal 0.0-0.5 [facility] Comment on above: Order Comment: No: D o not add to previous draw Performed By: #### 5 0103 ####[facility] Eosinophils/100 WBC Auto (Bld) 1.1 % Normal 0.0-6.0 [facility] Comment on above: Order Comment: No: D o not add to previous draw Performed By: #### 5 0103 ####[facility] Erythrocyte distribution width Auto Ratio (RBC) 12.5 % Normal 11.5-15.0 [facility] Comment on above: Order Comment: No: D o not add to previous draw Performed By: #### 5 0103 ####[facility] [facility].[address] Hematocrit Auto Volume Fraction (Bld) 48.8 % Normal 39.0-50.0 [facility] Comment on above: Order Comment: No: D o not add to previous draw Performed By: #### 5 0103 ####[facility].[address] Hemoglobin mass conc (Bld) 16.6 g/dL Normal 13.0-17.0 [facility] Comment on above: Order Comment: No: D o not add to previous draw Performed By: #### 5 0103 ####[facility] [facility].[address] IMMATURE GRANS 0.3 % Normal 0.0-1.0 [facility] Comment on above: Order Comment: No: D o not add to previous draw Performed By: #### 5 0103 ####[facility] [facility].[address] Lymphocytes Auto #/vol (Bld) 1.2 10*3/uL Normal 1.2-4.0 [facility] Comment on above: Order Comment: No: D o not add to previous draw Performed By: #### 5 3 ####[facility] [facility].[address] Lymphocytes/100 WBC Auto (Bld) 14.7 % Low 20.0-45.0 [facility] Comment on above: Order Comment: No: D o not add to previous draw Performed By: #### 5 0103 ####[facility] [facility].[address] MCH Auto Entitic mass (RBC) 30.3 pg Normal 27.0-33.0 [facility] Comment on above: Order Comment: No: D o not add to previous draw Performed By: #### 5 0103 ####[facility] [facility].[address] MCHC Auto mass conc (RBC) 34.0 g/dL Normal 32.0-35.0 [facility] Comment on above: Order Comment: No: D o not add to previous draw Performed By: #### 5 0103 ####[facility] [facility].[address] MCV Auto Entitic volume (RBC) 89.2 fL Normal 82.0-98.0 [facility] Comment on above: Order Comment: No: D o not add to previous draw Performed By: #### 5 0103 ####[facility] Monocytes Auto #/vol (Bld) 0.6 10*3/uL Normal 0.1-1.0 [facility] Comment on above: Order Comment: No: D o not add to previous draw Performed By: #### 5 3 ####[facility] MONOS 7.9 % Normal 5.0-12.0 [facility] Comment on above: Order Comment: No: D o not add to previous draw Performed By: #### 5 3 ####[facility] [facility].[address] Neutrophils/100 WBC Auto (Bld) 75.6 % High 40.0-72.0 [facility] Comment on above: Order Comment: No: D o not add to previous draw Performed By: #### 5 0103 ####[facility] Nucleated RBC/100 WBC Ratio (Bld) 0 % Normal 0-0 [facility] Comment on above: Order Comment: No: D o not add to previous draw Performed By: #### 5 0103 ####[facility] [address], [facility] PLAT CNT 243 10*3/uL Normal 150-400 [facility] Comment on above: Order Comment: No: D o not add to previous draw Performed By: #### 5 102 ####[facility] [facility] [place] [address], [facility] RBC Auto #/vol (Bld) 5.47 10*6/uL Normal 4.20-5.70 [facility] Comment on above: Order Comment: No: D o not add to previous draw Performed By: #### 5 102 ####[facility] WBC Auto #/vol (Bld) 7.87 10*3/uL Normal 4.00-10.60 [facility] Comment on above: Order Comment: No: D o not add to previous draw Performed By: #### 5 102 ####[facility] [facility].[address] COMP METABOLIC PANELon 09-10 Albumin mass conc 4.0 g/dL Normal 3.5-5.7 [facility] Comment on above: Order Comment: No: D o not add to previous draw Performed By: #### 0 0121, 75690, 15187 ####[facility] [facility].[address] ALKALINE PHOSPH 59 IU/L Normal 34-104 [facility] Comment on above: Order Comment: No: D o not add to previous draw Performed By: #### 0 0121, 37534, 90022 ####[facility] [facility].[address] ALT enzyme act/vol 22 U/L Normal 7-52 [facility] Comment on above: Order Comment: No: D o not add to previous draw Performed By: #### 0 0121, 25853, 66886 ####[facility] [address], [facility] AST enzyme act/vol 20 U/L Normal 13-39 [facility] Comment on above: Order Comment: No: D o not add to previous draw Performed By: #### 0 0121, 68367, 84573 ####[facility] [address], [place] Bilirubin mass conc 0.8 mg/dL Normal 0.3-1.0 [facility] Comment on above: Order Comment: No: D o not add to previous draw Performed By: #### 0 0121, 71404, 75941 ####[facility] [address], [facility] Calcium mass conc 8.8 mg/dL Normal 8.6-10.3 [facility] Comment on above: Order Comment: No: D o not add to previous draw Performed By: #### 0 0121, 49645, 17755 ####[facility] [place] [address], [place] Chloride molar conc 103 mmol/L Normal 98-107 [facility] Comment on above: Order Comment: No: D o not add to previous draw Performed By: #### 0 0121, 49390, 31723 ####[facility] [place] [address], [place] CO2 molar conc 28 mmol/L Normal 21-31 [facility] Comment on above: Order Comment: No: D o not add to previous draw Performed By: #### 0 0121, 40967, 66785 ####[facility] [address], [place] Creatinine mass conc 0.93 mg/dL Normal 0.70-1.30 [facility] Comment on above: Order Comment: No: D o not add to previous draw Performed By: #### 0 0121, 22103, 94306 ####[facility] [place] [address], [facility] GFR/1.73 sq M predicted among blacks MDRD vol rate/area (S/P/Bld) mL/min/{1.73_m2} Normal >60 [facility] Comment on above: Order Comment: No: D o not add to previous draw Performed By: #### 0 0121, 93859, 17203 ####[facility] [place] [address], [place] GFR/1.73 sq M predicted among non-blacks MDRD vol rate/area (S/P/Bld) mL/min/{1.73_m2} Normal >60 [facility] Comment on above: Order Comment: No: D o not add to previous draw Performed By: #### 0 0121, 57385, 78997 ####[facility] [place] [address], [facility] Glucose mass conc 94 mg/dL Normal 70-100 [facility] Comment on above: Order Comment: No: D o not add to previous draw Performed By: #### 0 0121, 16684, 81821 ####[facility] [place] [address], [facility] Potassium molar conc 4.0 mmol/L Normal 3.5-5.1 [facility] Comment on above: Order Comment: No: D o not add to previous draw Performed By: #### 0 0121, 32246, 37956 ####[facility] [address], [facility] Protein mass conc 6.8 g/dL Normal 6.0-8.3 [facility] Comment on above: Order Comment: No: D o not add to previous draw Performed By: #### 0 0121, 18820, 53353 ####[facility] [address], [place] Sodium molar conc 140 mmol/L Normal 136-145 [facility] Comment on above: Order Comment: No: D o not add to previous draw Performed By: #### 0 0121, 98120, 40846 ####[facility] [facility].[address] Urea nitrogen mass conc 19 mg/dL Normal 7-25 [facility] Comment on above: Order Comment: No: D o not add to previous draw Performed By: #### 0 0121, 36827, 75655 ####[facility] [facility].[address] PROTHROMBIN TIMEon 8 INR Coag RelTime (PPP) 0.93 {INR} Normal 0.91-1.16 [facility] Comment on above: Result Comment: ACCC P RECOMMENDED INR FOR WARFARIN THERAPY CONDITION INRPROPHYLAXIS OF VENOUS THROMBOSIS 2-3(HIGH-RISK SURGERY)TREATMENT OF VENOUS THROMBOSIS 2-3TREATMENT OF PULMONARY EMBOLISM 2-3PREVENTION OF SYSTEMIC EMBOLISM: 2-3 ACUTE MYOCARDIAL INFARCTION TISSUE HEART VALVES VALVULAR HEART DISEASE ATRIAL FIBRILLATION RECURRENT SYSTEMIC EMBOLISMMECHANICAL HEART VALVE 2.5-3.5 FROM: ORAL ANTICOAGULANTS. MECHANISM OF ACTION, CLINICALEFFECTIVENESS, AND OPTIMAL THERAPEUTIC RANGE. [id number];108:[id number]-246S. Performed By: #### 5 1881, 26909 ####[facility] [facility].[address] Prothrombin time (PT) Coag time (PPP) 12.5 s Normal 12.3-14.8 [facility] Comment on above: Result Comment: ALL RESULTS MUST BE INTERPRETED WITH RESPECT TO BLOOD DRAWING ARTIFACTOR DILUTION ERROR OF ANTICOAGULANT AT THE TIME OF SAMPLING. Performed By: #### 5 6101, 80884 ####[facility] TROPONIN-Ion 09-10-2018 Troponin I.cardiac mass conc 0.00 ng/mL Normal 0.00-0.04 [facility] Comment on above: Order Comment: No: D o not add to previous draw Result Comment: REFE RENCE RANGES: 0.00 - 0.14 ng/ml NEGATIVE 0.15 - 0.25 ng/ml INDETERMINATE > 0.25 ng/ml INDICATIVE OF AN M.I. Performed By: #### 3 5200 ####[place] [address] [address] Troponin I.cardiac mass conc 0.00 ng/mL Normal 0.00-0.04 [facility] Comment on above: Result Comment: REFE RENCE RANGES: 0.00 - 0.14 ng/ml NEGATIVE 0.15 - 0.25 ng/ml INDETERMINATE > 0.25 ng/ml INDICATIVE OF AN M.I. Performed By: #### 0 0121, 68402, 22002 ####[facility] [place] [address], [facility] TSH3on 09-10-2018 TSH 3RD GENERATION 1.05 uIU/mL Normal 0.34-5.60 [facility] Comment on above: Performed By: #### 0 0121, 38516, 79067 ####[facility] [facility].[address] Vital Signs Date Time Vital Sign Value Performing Clinician Shashank linn 10-01-2023 08:20-0500 Body height 193.04 cm Sher Whitfield Other [facility] Other 10-01-2023 08:20-0500 Body mass index (BMI) [Ratio] 27.75 kg/m2 Sher Whitfiled Other [facility] Other 10-01-2023 08:20-0500 Body weight 103.42 kg Sher Whitfield Other [facility] Other 1960 23:00-0500 >na< Ellie Rodríguez Dept. of Dermato logy Encounters Encounter Date Encounter Type Care Provider Facility Start: 10-31-2024 End: 10-31-2024 ambulatory [facility] Start: 09-12-2024 End: 09-12-2024 ambulatory Gold Choi MD Facility:[facility] Start: 05-23-2024 End: 05-23-2024 ambulatory Gold Choi MD Facility:[facility] Start: 05-09-2024 End: 05-09-2024 ambulatory Gold Choi MD Facility:[facility] Start: 05-02-2024 End: 05-02-2024 [facility] Start: 11-10-2023 End: 11-10-2023 ambulatory [facility] Start: 10-01-2023 Office outpatient ne w 30 minutes Sher Whitfield [facility] Start: 10-01-2023 End: 10-01-2023 ambulatory Sher Whitfield Facility:[facility] Start: 10-01-2023 End: 10-01-2023 ambulatory MD Kacy Jacobson Work Phone: [facility] Work Phone: Start: 10-01-2023 End: 10-01-2023 Patient encounter procedure MD Kacy Jacobson Work Phone: [facility] Work Phone: Start: 03-24-2023 Luke Reinoso Dept. of Dermatology [...] without abnormal findings DR KACY JACOBSON . [facility] Start: 01-22-2023 End: 01-23-[address] KACY JACOBSON . Facility:[facility] Start: 01-22-2023 End: 01-23-2023 Encounter for general adult medical examination without abnormal findings DR KACY JACOBSON . Facility:[facility] Start: 12-09-2022 End: 12-10-2022 ambulatory RENU HAROLDO Facility:[facility] Start: 10-27-2022 End: 10-28-2022 ambulatory RENU BERRIOSER Facility:[facility] Start: 10-08-2022 End: 10-09-2022 ambulatory RENU ZARCO Facility:[facility] Start: 09-24-2022 End: 09-25-[address] [facility] Start: 09-10-2022 End: 09-11-2022 ambulatory RENU ZARCO Facility:[facility] Start: 09-13-2018 End: 09-14-2018 Patient encounter procedure DEFAULT PHYSICIAN Facility:[facility] Start: 09-10-2018 End: 09-14-2018 Evaluation and management of inpatient AVE LUEVANO Facility:[facility] Start: 08-25-2018 End: 08-26-2018 Patient encounter procedure DEFAULT PHYSICIAN Facility:[facility] Procedures Date Procedure Procedure Detail Performing Clinician Start: 10-01-2023 X-ray of lumbar spin e, six views including bending views MD Kacy Jacobson Work Phone: Start: 03-24-2023 Ellie arita Start: 03-18-2023 [facility] micrographic h/n/h/f/g 1st stage 5 blocks Luke Reinoso Start: 03-02-2023 Ellie arita Start: 01-22-2023 PSA screening RENU GARCIA Comment on above: Performed By: #### T 7, URIC, TSH, CMP, LIPID #### [facility] [address] [place], [place] [address] Dr. Ayush Sorto Start: 09-13-2018 [facility] Rhythm, Single LIZETTE V MOUKARBEL Immunizations Immunization Date Immunization Notes Care Provider Fa cility 1960 pneumococcal conjuga te vaccine, 7 valent Ellie Rodríguez Dept. of Dermatology Payers Date Payer Category Payer Unknown [id number] 2023 Medicare 2023 Self-pay 2006 Private Health Insurance [id number] 1960 Unknown [id number] 1960 Unknown [id number] 2.16.8 40.1.075146.3.579.2.647 1959 Unknown [id number] 2.16.8 40.1.736091.3.579.2.647 1959 Unknown [id number] 2.16.8 40.1.891671.3.579.2.647 1959 Unknown [id number] 2.16.84 0.1.868917.3.579.2.593 1959 Unknown [id number] 2.16.84 0.1.717712.3.579.2.593 1959 Unknown [id number] 2.16.84 0.1.861947.3.579.2.593 1959 Unknown [id number] 2.16.84 0.1.422258.3.579.2.593 1959 Unknown [id number] 2.16.84 0.1.441566.3.579.2.593 1959 Unknown [id number] 2.16.84 0.1.816928.3.579.2.593 1959 Unknown [id number] 2.16.84 0.1.277221.3.579.2.593 1959 Unknown [id number] 2.16. 840.1.619927.3.579.2.356 1959 Unknown [id number] 2.16. 840.1.191713.3.579.2.356 1959 Unknown [id number] 2.16. 840.1.595405.3.579.2.356 1959 Unknown [id number] 2.16. 840.1.157899.3.579.2.196 1959 Unknown [id number] 2.16. 840.1.057258.3.579.2.196 1959 Unknown [id number] 2.16. 840.1.410279.3.579.2.196 1959 Unknown [id number] 2.16. 840.1.217592.3.579.2.196 Unknown Unknown [id number] 2.16.8 40.1.058698.3.579.2.531 Social History Date Type Detail Facility Start: 03-02-2023 Dept. of D ermatology Start: 1960 End: 1960 Sex Assigned At Male [facility] Sex Assigned At Sex Assigned At [facility] [employer] Other Goals Date Patient Goal Desired Activity /State Progress note 10-31-2024 Note Date & Type Note Facility 10-31-2024 Note [facility] Subjective Reece Hogue is a 64 y.o. year old male patient being seen for Atrial Fibrillation (Denies bleeding on Xarelto and palpitations. ), Hypertension (Had echo in Nov 2023 after last apt in Oct 2023. Also had EUGENE's in February 2024. No recent labs. Denies chest pain and SOB.), and Weight Gain (+38# since last year. He retired in January 2024. He does walk 4 miles a day on his home treadmill. 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 He walks 4 miles a day on his home treatment without any problems, he does also weight lifting. He states that his work used to be very physical therefore his weight was less. Otherwise, He states that he has been doing well. He denies any chest discomfort at rest or with exertion. He denies exertional dyspnea, orthopnea or paroxysmal nocturnal dyspnea. He denies dizziness, syncope or near syncope. He denies palpitations, legs edema or discomfort on exertion. ROS All systems were reviewed and they were negative except for the positive findings noted above in the history Past Medical History: Diagnosis Date Abnormal ECG Arrhythmia Cancer (CMS/HCC) Chronic atrial fibrillation (CMS/HCC) HTN (hypertension) Sleep apnea Past Surgical History: Procedure Laterality Date ABLATION OF DYSRHYTHMIC FOCUS CARDIOVERSION Family History Problem Relation Name Age of Onset Heart attack Maternal Grandfather Social History Tobacco Use Smoking status: Never Smokeless tobacco: Never Substance Use Topics Alcohol use: Yes Comment: occasional Drug use: Never Allergies No Known Allergies Medications Current Outpatient Medications: lisinopril 10 mg tablet, TAKE 1 TABLET BY MOUTH EVERY DAY IN THE MORNING, Disp: 90 tablet, Rfl: 3 metoprolol tartrate (Lopressor) 25 mg tablet, Take 1 tablet (25 mg) by mouth in the morning and at bedtime. To be taken with 50 mg tablet for a total of 75 mg BID, Disp: 180 tablet, Rfl: 3 metoprolol tartrate (Lopressor) 50 mg tablet, Take 1 tablet (50 mg) by mouth in the morning and at bedtime. Take with 25mg tablet for a total of 75mg BID, Disp: 180 tablet, Rfl: 3 rivaroxaban (Xarelto) 20 mg tablet, Take 1 tablet (20 mg) by mouth in the morning., Disp: 90 tablet, Rfl: 3 spironolactone (Aldactone) 25 mg tablet, Take 1 tablet (25 mg) by mouth in the morning., Disp: 90 tablet, Rfl: 3 metoprolol tartrate 75 mg tablet, Take 1 tablet (75 mg) by mouth in the morning and at bedtime., Disp: 180 tablet, Rfl: 3 Objective Visit Vitals BP 144/88 (BP Location: Left arm, Patient Position: Sitting) Pulse 64 Ht 1.93 m (6' 4 ) Wt 120 kg (264 lb) SpO2 98% BMI 32.14 kg/m??? Smoking Status Never BSA 2.54 m??? Physical exam: GENERAL: alert and oriented x3, well developed, in no acute distress. HEAD: atraumatic, normocephalic. EYES: NIKA, EOMI. NECK: trachea midline, no JVD present, no carotid bruits present. CARDIAC: S1, S2 present. Irregular irregularity. No murmur, rubs, or gallops. RESPIRATORY: CTAB, no increased effort of breathing, no rales, rhonchi, or wheezing. ABDOMEN: soft, nontender, nondistended. EXTREMITIES: Trivial legs edema bilaterally. No rash/skin discoloration present. NEURO: strength/sensation equal and symmetric in bilateral upper and lower extremities. PSYCH: appropriate mood, affect, and judgement. Recent Labs 01/22/2023 White blood count 8.6, hemoglobin 16, hematocrit 49, platelets 248 Total protein 7.4, total bilirubin 1.1, ALT 28, AST 23, alk phos 85, and Sodium 139, potassium 4.8, glucose 93, BUN 23, creatinine 0.88, GFR above 60 Cholesterol 216, HDL 68, triglyceride 57, LDL 137 TSH 1.145, T49.2, Imaging and other tests EKG: Echo: 12/15/2023 at [facility] Echo 09/24/2022 MOJGAN 09/13/2018 Global left ventricular systolic function is normal. The left ventricle is normal size. Normal right ventricular systolic function. The right ventricle appears enlarged. The left atrium appears enlarged. No thrombus seen in the left atrial appendage. - No significant valvular abnormalities - Biphasic cardioversion was performed at 300 J, the patient was converted to sinus rhythm EUGENE of lower extremities 03/11/2024 Stress test: Cardiac cath: Event Monitor: Cardiac MRI: CX ray: Assessment/Plan Chronic atrial fibrillation (CMS/HCC) Status post cardioversion x 3 whi (more content not included)... [facility] Progress note 11-10-2023 Note Date & Type Note Facility 11-10-2023 Note Patient here for 6 m o follow up chronic afib. No recent labs or imaging. Denies chest pain, SOB, palpitations, lightheadedness/syncope, and bleeding on Xarelto. BP at home when checked averages around 120/80. Review of Systems Musculoskeletal: Positive for myalgias. All other systems reviewed and are negative. [facility] Progress note 11-10-2023 Note Date & Type Note Facility [...] history was recently cardioverted by me at [facility] to SR . He states no [...] rhonchi Cardiovascular Rat (more content not included)... [facility] Evaluation note 10-01-2023 Note Date & Type Note Facility 10-01-2023 Evaluation note Encounter Date Diagnosis Assessment [...] Pain in left leg (ICD-10 - M79.605) [facility] Other Evaluation note Note Date & Type Note Facility Evaluation note N/A Dept. of Dermato logy Evaluation note Note Date & Type Note Facility Evaluation note No assessment information availa [facility] Work Phone: History general Narrative - Reported Note Date & Type Note Facility History general Narrative - Reported Type Medical History heart disease Medical History melanoma Surgical History melanoma excision Hospitalization History see above [facility] Other Reason for referral (narrative) Note Date & Type Note Facility Reason for referral (narrati ve) NA NA Dept. of Dermatology Summary Purpose Family History No Family History Records FoundNo Family History Records FoundNo Family History Records FoundNo Family History Records FoundNo Family History Records FoundNo Family History Records Found Advance Directives No Advanced Directives Records Found Advance Directive Response Recorded Date/ Time Advance Directives No October 01, 2023 7:32am Hospital Course Note MR[id number] Admitted: 09/10/2018 Discharged: 09/14/2018 Date of : 1960 Physician: Primo Glaser MD DISCHARGE SUMMARYDISCHARGE ATTENDING PHYSICIAN: Primo Glaser [facility]: Dr. Jacobson at [phone].PRINCIPAL DIAGNOSIS: Atrial fibrillation/flutter, status post TEEconversion currently [...] and content) DATE CREATED AUTHOR 10/23/2018 [facility] DATE CREATED AUTHOR AUTHOR'S ORGANIZ ATION 02/27/2023 [facility] [place] DATE CREATED AUTHOR AUTHOR'S ORGANIZ ATION 03/25/2023 [facility] DATE CREATED AUTHOR AUTHOR'S ORGANIZ ATION 10/09/2023 [facility] DATE CREATED AUTHOR AUTHOR'S ORGANIZ ATION 09/21/2024 [facility] DATE CREATED AUTHOR AUTHOR'S ORGANIZ ATION 11/03/2024 [facility] Care Teams (unrecognized sec tion and [...] BE BASED ON THE PRIMARY CLINICAL RECORDS. [employer] [facility]. provides no warranty or guarantee of the accuracy or completeness of information in this document.
--- NOTE | 2024-12-21 08:10 | PM.CN ---
Consult Note: HPI Data of Consult Patient: known to practice within the last 3 years Requesting Physician: Shannan Gautam NP Primary Care Provider: Ross Jacobson MD Consult Narrative Reason for consult: low back, bilateral lower extremity pain Narrative: 64yom who presents for evaluation. longstanding low back, bilateral lower extremity pain. worsened in past several months. used to walk long distances, now has significant trouble with ambulation. lumbar mri reviewed, significant for severe stenosis at l2-3, l3-4, l4-5. significant facet arthropathy at multiple lumbar levels. engaged in chiropractic therapy >6 weeks, without relief. uses advil. denies adverse med side effects. on xarelto, should avoid all NSAIDs. Previous bilateral L3-4 TFESI and L4-5 TFESI provided >80% improvement for 3 months. pain 9/10, severe numbness tingling to BLE increased with standing walking improved with sitting. cc:: CC: Shannan Gautam NP Review of Systems ROS Status of ROS 10 or more systems reviewed and unremarkable except as noted in history and below Musculoskeletal Reports: back pain and extremity pain PFSH PFSH Medical History Melanoma ?C43.9 - Malignant melanoma of skin, unspecified (ICD-10) Low back pain ?M54.50 - Low back pain, unspecified (ICD-10) Sleep apnea ?G47.30 - Sleep apnea, unspecified (ICD-10) Afib ?I48.91 - Unspecified atrial fibrillation (ICD-10) Surgical History H/O knee surgery ?Z98.890 - Other specified postprocedural states (ICD-10) Meds Home Medications and Allergies Home Medications ?Medication ?Instructions ?Recorded ?Confirmed ?Type lisinopril 10 mg tablet mg 05/02/24 History metoprolol tartrate 75 mg tablet mg 05/02/24 History multivitamin 1 tab PO DAILY 05/02/24 09/12/24 History omega 3-yog-iyc-fish oil 1,000 mg 1 cap PO DAILY 05/02/24 09/12/24 History (120 mg-180 mg) capsule (Fish Oil) rivaroxaban 20 mg tablet (Xarelto) mg 05/02/24 History spironolactone 25 mg tablet mg 05/02/24 History Allergies Allergy/AdvReac Type Severity Reaction Status Date / Time No Known Drug Allergies Allergy Verified 09/12/24 09:22 Exam Constitutional Documenting provider has reviewed patient's vital signs: yes Common normals: no apparent distress, oriented x3, healthy appearing, alert and well nourished General appearance: cooperative HENMT Common normals: normocephalic, hearing grossly normal bilaterally and moist oral mucous membranes Head and scalp: normocephalic Eye Common normals: PERRL Pupil: PERRL Neck & C-Spine Common normals: full ROM General: normal visual inspection Chest Common normals: inspection of chest normal Respiratory Common normals: normal respiratory effort, no retractions and no use of accessory muscles Back & Pelvis Lumbar spine/lower back: lumbar ROM normal, straight leg raise positive right and straight leg raise positive left; ROM not limited and no pain with ROM Other: significant pain following bilateral L4/5/S1 pattern strength 4/5 in BLE Neuro Common normals: oriented x3, CN's II-XII intact bilaterally, moves all extremities, no focal motor deficits, no sensory deficits noted and deep tendon reflexes 2+ bilaterally Sensorium/orientation: alert Motor exam: no movement abnormalities noted Psych Common normals: mental status grossly normal, thought process normal, cooperative, affect normal, speech normal and activity/motor behavior normal Speech: normal speech Thought process: normal thought process Results Additional Findings Additional findings: If on a controlled substance or opioids, I have checked an [place] report on this patient and there are no aberrancies noted in the prescribing history.??If on a controlled substance or opioid a drug screen was completed and reviewed within the last year, and if there has not been a drug screen completed we ordered one today to monitor higher risk, state monitored pain medication use. As part of providing excellent, safe, comprehensive care, the following was completed at our patient's visit: 1. A medication reconciliation and review to ensure accurate knowledge of current/active medications, including asking our patients to inform us about any [id number] medications or herbal remedies/nutritional supplements/alternative remedies. 2. A review to specifically ensure our patients have had annual screening for screening for depression, screening for tobacco use, and screening for unhealthy alcohol use. For concerning screenings had a discussion with the patient, provided patient education, and recommended follow-up with primary care provider when appropriate. If patient noted with a risk of falling, they received education on strength, gait, and balance training to prevent future risk of falling. Portions of this note may have been carried over from the previous visit and updated as appropriate. Please note this office utilizes paper charting in addition to the electronic medical record. A list of current medications, vitals, and PMH is available there as the clinical staff outside of myself do not have access to [employer] charting during the clinic day operations. As part of providing quality comprehensive care the current medications, vitals, and PMH were reviewed in the paper chart. Assessment and Plan Assessment and Plan (1) Lumbar stenosis with neurogenic claudication: Plan repeat bilateral L4/5 TFESI under fluoroscopy for lumbar stenosis with NC. previous injection provided >50% improvement in pain and functional ability for 3 months continue HEP as tolerated f/u 2 weeks after injection
== END 2024-12-21 07:49 | disposition home or self-care (01) ==
LOC: PM 07:48
PROVIDERS: PCP Family Medicine; Visit Provider Nurse Practitioner
DX: M48.062 Spinal stenosis, lumbar region with neurogenic claudication (principal)
CPT/HCPCS: G0463

== ENCOUNTER 2025-01-02 09:42 | Day surgery (SDC) | payer OTHER, SELFPAY ==
[2025-01-02 09:46] VITALS: BP 136/91; PULSE 58; TEMP 35.8; O2SAT 98
--- OUTSIDE RECORDS SUMMARY | 2025-01-02 09:52 | XMS_ITS | CCD ---
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 Hypertension [079193] - Had echo in Nov 2023 after last apt in Oct 2023. Also had EUGENE's in February 2024. No recent labs. Denies chest pain and SOB. Weight Gain [180] - +38# since last year. He retired in January 2024. He does walk 4 miles a day on his home treadmill. Normal [facility] Office Visiton 11-10-2023 Follow-up visit [id number] JoaoSusanna hitchcock D 1960 M Date Provider Department Center 11/10/2023 RANDY JOHNSTON [facility] Family History Problem Relation Age of Onset Heart attack Maternal Grandfather Family Status - Relation Status Age at Maternal Grandfather Level of Service:10484 OR OFFICE/OUTPATIENT ESTABLISHED LOW MDM 20 MIN Normal [facility] Orders Onlyon 11-10-2023 Orders Only [id number] Jaun Hogueyudi hitchcock D 1960 M Date Provider Department Center 11/10/2023 CRISTINO AYALA [facility] Family History Problem Relation Age of Onset Heart attack Maternal Grandfather Family Status - Relation Status Age at Maternal Grandfather [facility] XR lumbar spine 6V w bending on 10-01-2023 XR lumbar spine 6V w bending [facility] [place] [address] [place], [place] [id number] XRay Report Signed Patient: Reece Hogue MR#: [id number] : 1960 Acct:[id number] Age/Sex: 63 / M ADM Date: 10/01/23 Loc: XD [facility]: [facility] Dr: Sher Whitfield MD Copies to: [...] Nila Christensen M.D.10/01/2023 12:35 PM Dictation Location: [place] [address] Transcribed By: [facility] 10/01/23 1235 Dictated By: Nila Christensen MD 10/01/23 1226 Signed By: 10/01/23 1235 [facility] Dermatopathologyon 3 Dermatopathology Name: REECE HOGUE Pathologist: JAIMEE NEGRETE MD Date of Procedure: 02/24/2023 Date Received: 02/24/2023 Date Reported 02/25/2023 Submitting Physician: LUKE REINOSO MD, Location: [facility] Copy To/Referring/Attending: MD KAUR PERDOMO FINAL DIAGNOSIS 4 SLIDES, [facility], #[id number] (BX: 02/03/2023) SKIN, LEFT NASAL SIDEWALL, SHAVE [...] SLIDES, [facility], #[id number] (BX: 02/03/2023): SPECIMEN Procedure: Biopsy, shave Specimen [...] ADDITIONAL FINDINGS Additional Findings: None ADDITIONAL TESTING Director Hardware Blocks: Normal Block: None Tumor Block: A1 Electronically Signed Out By JAIMEE NEGRETE MD/MARISSA Diagnostic interpretation performed at [facility] [address] [id number], [facility] [address] Clinical History: 8 MM, NEOPLASM OF UNSPECIFIED BEHAVIOR VS. LENTIGO Specimens Submitted As: A: 4 SLIDES, [facility], #[id number] (BX: 02/03/2023) Gross Description: Received for consultation from [facility] are four slides labeled [id number] (BX: 02/03/2023) along with the corresponding pathology report. Slide/Block Description 4 SLIDES, [id number]. Keep Slides: N Slides Returned: N Personal Consult: N Normal [facility] Comment on above: Performed By: [...] JO RUSSELL Date: 2023-02-18 14:29 Normal [facility] INSULINon 01-23-2023 Insulin 7.9 uIU/mL Normal 2.6-24.9 [facility] Comment on above: Performed By: #### T 7, URIC, TSH, CMP, LIPID #### [facility] [address] [address] [address] Ayush Sorto CBC AUTO DIFFon 01-22-2023 BASO # 0.0 103/ul Normal 0.0-0.1 [facility] Comment on above: Performed By: #### C BC #### [facility] [address] [place] [address] Dr. Ayush Sorto Basophils/100 WBC (Bld) 0.6 % Normal 0.2-2.0 [facility] Comment on above: Performed By: #### C BC #### [facility] [address] [place] [address] Dr. Ayush Sorto EO # 0.2 103/ul Normal 0.0-0.7 [facility] Comment on above: Performed By: #### C BC #### [facility] [address] [place] [address] Dr. Ayush Sorto Eosinophils/100 WBC (Bld) 2.3 % Normal 0.9-7.0 [facility] Comment on above: Performed By: #### C BC #### [facility] [address] [address] [address] Ayush Sorto Erythrocyte distribution width (RBC) [Ratio] 13.2 % Normal 11.0-15.0 [facility] Comment on above: Performed By: #### C BC #### [facility] [address] [place] [address] Dr. Ayush Sorto Hematocrit (Bld) [Volume fraction] 48.6 % Normal 42.0-54.0 [facility] Comment on above: Performed By: #### C BC #### [facility] [address] [place] [address] Dr. Ayush Sorto Hemoglobin (Bld) [Mass/Vol] 16.4 g/dL Normal 14.0-18.0 [facility] Comment on above: Performed By: #### C BC #### [facility] [address] [place] [address] Dr. Ayush Sorto IG # 0.02 10e3/ul Normal 0.00-0.03 [facility] Comment on above: Performed By: #### C BC #### [facility] [address] [place] [address] Dr. Ayush Sorto IG % 0.3 % Normal 0.0-0.5 [facility] Comment on above: Performed By: #### C BC #### [facility] [address] [place] [address] Dr. Ayush Sorto LYMPH # 1.6 103/ul Normal 1.2-3.8 [facility] Comment on above: Performed By: #### C BC #### [facility] [address] [place] [address] Dr. Ayush Sorto Lymphocytes/100 WBC (Bld) 24.7 % Normal 20.5-60.0 [facility] Comment on above: Performed By: #### C BC #### [facility] [address] [place] [address] Dr. Ayush Sorto MANUAL DIFF REQ NO Normal [facility] Comment on above: Performed By: #### C BC #### [facility] [address] [place] [address] Dr. Ayush Sorto MCH (RBC) [Entitic mass] 30.0 pg Normal 25.9-34.0 [facility] Comment on above: Performed By: #### C BC #### [facility] [address] [place] [address] Dr. Ayush Sorto MCHC (RBC) [Mass/Vol] 33.7 g/dL Normal 29.9-35.2 [facility] Comment on above: Performed By: #### C BC #### [facility] [address] [place] [address] Dr. Ayush Sorto MCV (RBC) [Entitic vol] 89.0 fL Normal 80.0-94.0 [facility] Comment on above: Performed By: #### C BC #### [facility] [address] [place] [address] Dr. Ayush Sorto MONO # 0.7 103/ul Normal 0.3-0.8 [facility] Comment on above: Performed By: #### C BC #### [facility] [address] [place] [address] Dr. Ayush Sorto Monocytes/100 WBC (Bld) 10.1 % Normal 1.7-12.0 [facility] Comment on above: Performed By: #### C BC #### [facility] [address] [place] [address] Dr. Ayush Sorto NEUT # 4.1 103/ul Normal 1.4-6.5 [facility] Comment on above: Performed By: #### C BC #### [facility] [address] [place] [address] Dr. Ayush Sorto Neutrophils/100 WBC (Bld) 62.0 % Normal 43.0-75.0 [facility] Comment on above: Performed By: #### C BC #### [facility] [address] [place] [address] Dr. Ayush Sorto Platelet mean volume (Bld) [Entitic vol] 8.6 fL Critically low 9.5-13.5 [facility] Comment on above: Performed By: #### C BC #### [facility] [address] [place] [address] Dr. Ayush Sorto PLT 248 103/ul Normal 150-450 [facility] Comment on above: Performed By: #### C BC #### [facility] [address] [place] [address] Dr. Ayush Sorto RBC 5.46 106/ul Normal 4.70-6.10 [facility] Comment on above: Performed By: #### C BC #### [facility] [address] [place] [address] Dr. Ayush Sorto WBC 6.6 103/ul Normal 4.0-11.0 [facility] Comment on above: Performed By: #### C BC #### [facility] [address] [address] [address] Ayuhs Sorto FREE THYROXINE INDEX T7on FTI 3.31 Normal 1.30-4.50 [facility] Comment on above: Performed By: #### T 7, URIC, TSH, CMP, LIPID #### [facility] [address] [place] [address] Dr. Ayush Sorto T3U 36.0 % Normal 33.0-40.0 [facility] Comment on above: Performed By: #### T 7, URIC, TSH, CMP, LIPID #### [facility] [address] [place] [address] Dr. Ayush Sorto T4 [Mass/Vol] 9.20 ug/dL Normal 4.50-12.10 [facility] Comment on above: Performed By: #### T 7, URIC, TSH, CMP, LIPID #### [facility] [address] [place] [address] Dr. Ayush Sorto GLYCOHEMOGLOBIN A1Con 2022 ADA RECOMMENDATION SEE BELOW Normal [facility] Comment on above: Result Comment: ADA RECOMMENDED LIMIT 4.0 - 6.0 ADA THERAPEUTIC TARGET < 7.0 ACTION SUGGESTED > 7.0 Performed By: #### T 7, URIC, TSH, CMP, LIPID #### [facility] [address] [place] [address] Dr. Ayush Sorto Glucose [Mass/Vol] 117 mg/dL Normal [facility] Comment on above: Performed By: #### T 7, URIC, TSH, CMP, LIPID #### [facility] [address] [place] [address] Dr. Ayush Sorto HbA1c (Bld) [Mass fraction] 5.7 % Normal 4.5-6.2 [facility] Comment on above: Performed By: #### T 7, URIC, TSH, CMP, LIPID #### [facility] [address] [place] [address] Dr. Ayush Sorto LIPID PROFILEon 01-22-2023 CHOL-HDL RATIO NORM SEE BELOW Normal [facility] Comment on above: Result Comment: 3.3 - 4.4 LOW RISK 4.4 - 7.1 AVERAGE RISK 7.1 - 11.0 MODERATE RISK >11.0 HIGH RISK Performed By: #### T 7, URIC, TSH, CMP, LIPID #### [facility] [address] [place] [address] Dr. Ayush Sorto Cholesterol [Mass/Vol] 216 mg/dL Critically high <=200 [facility] Comment on above: Performed By: #### T 7, URIC, TSH, CMP, LIPID #### [facility] [address] [address] [address] Ayush Sorto Cholesterol in HDL [Mass/Vol] 68 mg/dL Critically high 40-60 [facility] Comment on above: Performed By: #### T 7, URIC, TSH, CMP, LIPID #### [facility] [address] [place] [address] Dr. Ayush Sroto Cholesterol in LDL [Mass/Vol] 136.6 mg/dL Normal [facility] Comment on above: Performed By: #### T 7, URIC, TSH, CMP, LIPID #### [facility] [address] [place] [address] Dr. Ayush Sorto Cholesterol.total/C holesterol in HDL [Mass ratio] 3.2 {ratio} Normal [facility] Comment on above: Performed By: #### T 7, URIC, TSH, CMP, LIPID #### [facility] [address] [place] [address] Dr. Ayush Sorto HDL NORMAL > or = 60 mg/dl - LO W CARDIOVASCULAR RISK <40 mg/dl - HIGH CARDIOVASCULAR RISK Normal [facility] Comment on above: Performed By: #### T 7, URIC, TSH, CMP, LIPID #### [facility] [address] [place] [address] Dr. Ayush Sorto LDL CALC NORMAL SEE BELOW Normal [facility] Comment on above: Result Comment: <100 mg/dl OPTIMAL 100 - 129 mg/dl NEAR OR ABOVE OPTIMAL 130 - 159 mg/dl BORDERLINE HIGH 160 - 189 mg/dl HIGH >190 mg/dl VERY HIGH Performed By: #### T 7, URIC, TSH, CMP, LIPID #### [facility] [address] [address] [address] Ayush Sorto Triglyceride [Mass/Vol] 57 mg/dL Normal <=150 [facility] Comment on above: Performed By: #### T 7, URIC, TSH, CMP, LIPID #### [facility] [address] [address] [address] Ayush Sorto VLDL CALC 11.4 mg/dL Normal [facility] Comment on above: Performed By: #### T 7, URIC, TSH, CMP, LIPID #### [facility] [address] [place] [address] Dr. Ayush Sorto PROF 14(COMP METB)on 023 Albumin [Mass/Vol] 4.0 g/dL Normal 3.4-5.0 [facility] Comment on above: Performed By: #### T 7, URIC, TSH, CMP, LIPID #### [facility] [address] [place] [address] Dr. Ayush Sorto Albumin/Globulin [Mass ratio] 1.2 {ratio} Normal [facility] Comment on above: Performed By: #### T 7, URIC, TSH, CMP, LIPID #### [facility] [address] [place] [address] Dr. Ayush Sorto ALP [Catalytic activity/Vol] 85 U/L Normal 46-116 [facility] Comment on above: Performed By: #### T 7, URIC, TSH, CMP, LIPID #### [facility] [address] [place] [address] Dr. Ayush Sorto ALT [Catalytic activity/Vol] 28 U/L Normal 16-63 [facility] Comment on above: Performed By: #### T 7, URIC, TSH, CMP, LIPID #### [facility] [address] [place] [address] Dr. Ayush Sorto Anion gap [Moles/Vol] 12.9 mmol/L Normal [facility] Comment on above: Performed By: #### T 7, URIC, TSH, CMP, LIPID #### [facility] [address] [place] [address] Dr. Ayush Sorto AST [Catalytic activity/Vol] 23 U/L Normal 15-37 [facility] Comment on above: Performed By: #### T 7, URIC, TSH, CMP, LIPID #### [facility] [address] [address] [address] Ayush Sorto Bilirubin [Mass/Vol] 1.1 mg/dL Critically high 0.2-1.0 [facility] Comment on above: Performed By: #### T 7, URIC, TSH, CMP, LIPID #### [facility] [address] [address] [address] Ayush Sorto Calcium [Mass/Vol] 9.2 mg/dL Normal 8.5-10.1 [facility] Comment on above: Performed By: #### T 7, URIC, TSH, CMP, LIPID #### [facility] [address] [place] [address] Dr. Ayush Sorto Chloride [Moles/Vol] 103 mmol/L Normal 98-107 [facility] Comment on above: Performed By: #### T 7, URIC, TSH, CMP, LIPID #### [facility] [address] [place] [address] Dr. Ayush Sorto CO2 [Moles/Vol] 27.9 mmol/L Normal 21.0-32.0 [facility] Comment on above: Performed By: #### T 7, URIC, TSH, CMP, LIPID #### [facility] [address] [place] [address] Dr. Ayush Sorto Creatinine [Mass/Vol] 0.88 mg/dL Normal 0.70-1.30 [facility] Comment on above: Performed By: #### T 7, URIC, TSH, CMP, LIPID #### [facility] [address] [address] [address] Ayush Sorto EGFR-AF MACANESE >60 Normal >=60 [facility] Comment on above: Performed By: #### T 7, URIC, TSH, CMP, LIPID #### [facility] [address] [place] [address] Dr. Ayush Sorto EGFR-NON AF MACANESE >60 Normal >=60 [facility] Comment on above: Performed By: #### T 7, URIC, TSH, CMP, LIPID #### [facility] [address] [address] [address] Ayush Sorto Globulin (S) [Mass/Vol] 3.4 g/dL Normal [facility] Comment on above: Performed By: #### T 7, URIC, TSH, CMP, LIPID #### [facility] [address] [place] [address] Dr. Ayush Sorto Glucose [Mass/Vol] 93 mg/dL Normal 74-106 [facility] Comment on above: Performed By: #### T 7, URIC, TSH, CMP, LIPID #### [facility] [address] [place] [address] Dr. Ayush Sorto Potassium [Moles/Vol] 4.8 mmol/L Normal 3.5-5.1 [facility] Comment on above: Performed By: #### T 7, URIC, TSH, CMP, LIPID #### [facility] [address] [place] [address] Dr. Ayush Sorto Protein [Mass/Vol] 7.4 g/dL Normal 6.4-8.2 [facility] Comment on above: Performed By: #### T 7, URIC, TSH, CMP, LIPID #### [facility] [address] [place] [address] Dr. Ayush Sorto Sodium [Moles/Vol] 139 mmol/L Normal 136-145 [facility] Comment on above: Performed By: #### T 7, URIC, TSH, CMP, LIPID #### [facility] [address] [place] [address] Dr. Ayush Sorto Urea nitrogen [Mass/Vol] 23.0 mg/dL Critically high 7.0-18.0 [facility] Comment on above: Performed By: #### T 7, URIC, TSH, CMP, LIPID #### [facility] [address] [place] [address] Dr. Ayush Sorto Urea nitrogen/Creatinine [Mass ratio] 26.1 mg/mg Normal [facility] Comment on above: Performed By: #### T 7, URIC, TSH, CMP, LIPID #### [facility] [address] [place] [address] Dr. Ayush Sorto TSHon 01-22-2023 TSH 1.145 uIU/mL Normal 0.358-3.74 0 [facility] Comment on above: Performed By: #### T 7, URIC, TSH, CMP, LIPID #### [facility] [address] [place] [address] Dr. Ayush Sorto URIC ACID SERUMon 01-22-2023 Urate [Mass/Vol] 6.8 mg/dL Normal 3.5-7.2 [facility] Comment on above: Performed By: #### T 7, URIC, TSH, CMP, LIPID #### [facility] [address] [place] [address] Dr. Ayush Sorto VITAMIN D 25 OHon 01-22-2023 VIT D 25-OH 72.7 ng/mL Normal [facility] Comment on above: Performed By: #### V PLACIDO, PSASC #### [facility] [address] [place] [address] Dr. Ayush Sorto VIT D RANGES SEE BELOW Normal [facility] Comment on above: Result Comment: <20 ng/mL Vit D deficient 20 - <30 ng/mL Vit D insufficient 30 - 100 ng/mL Vit D sufficient >100 ng/mL Potential Toxicity Performed By: #### V PLACIDO, PSASC #### [facility] [address] [place] [address] Dr. Ayush Sorto PROF CHEM 8 (BAS METB)on Anion gap [Moles/Vol] 10.1 mmol/L Normal [facility] Comment on above: Performed By: #### T 7, URIC, TSH, CMP, LIPID #### [facility] [address] [place] [address] Dr. Ayush Sorto Calcium [Mass/Vol] 9.3 mg/dL Normal 8.5-10.1 [facility] Comment on above: Performed By: #### T 7, URIC, TSH, CMP, LIPID #### [facility] [address] [place] [address] Dr. Ayush Sorto Chloride [Moles/Vol] 102 mmol/L Normal 98-107 [facility] Comment on above: Performed By: #### T 7, URIC, TSH, CMP, LIPID #### [facility] [address] [address] [address] Ayush Sorto CO2 [Moles/Vol] 31.8 mmol/L Normal 21.0-32.0 [facility] Comment on above: Performed By: #### T 7, URIC, TSH, CMP, LIPID #### [facility] [address] [address] [address] Ayush Sorto Creatinine [Mass/Vol] 1.03 mg/dL Normal 0.70-1.30 [facility] Comment on above: Performed By: #### T 7, URIC, TSH, CMP, LIPID #### [facility] [address] [address] [address] Ayush Sorto EGFR-AF MACANESE >60 Normal >=60 [facility] Comment on above: Performed By: #### T 7, URIC, TSH, CMP, LIPID #### [facility] [address] [address] [address] Ayush Sorto EGFR-NON AF MACANESE >60 Normal >=60 [facility] Comment on above: Performed By: #### T 7, URIC, TSH, CMP, LIPID #### [facility] [address] [address] [address] Ayush Sorto Glucose [Mass/Vol] 121 mg/dL Critically high 74-106 [facility] Comment on above: Performed By: #### T 7, URIC, TSH, CMP, LIPID #### [facility] [address] [address] [address] Ayush Sorto Potassium [Moles/Vol] 4.9 mmol/L Normal 3.5-5.1 [facility] Comment on above: Performed By: #### T 7, URIC, TSH, CMP, LIPID #### [facility] [address] [address] [address] Ayush Sorto Sodium [Moles/Vol] 139 mmol/L Normal 136-145 [facility] Comment on above: Performed By: #### T 7, URIC, TSH, CMP, LIPID #### [facility] [address] [place], [place] [address] Dr. Ayush Sorto Urea nitrogen [Mass/Vol] 15.0 mg/dL Normal 7.0-18.0 [facility] Comment on above: Performed By: #### T 7, URIC, TSH, CMP, LIPID #### [facility] [address] [place], [place] [address] Dr. Ayush Sorto Urea nitrogen/Creatinine [Mass ratio] 14.6 mg/mg Normal [facility] Comment on above: Performed By: #### T 7, URIC, TSH, CMP, LIPID #### [facility] [address] [place], [place] [address] Dr. Ayush Sorto ECHOCARDIO M/2D COMPLETEon 1 11-24-2021 ECHOCARDIO M/2D COMPLETE Patient: REECE HOGUE Exam Date: 09/24/2022 : 1960 Gender:M Ordering : RENU ZARCO [facility] Admission #: [id number] Family : DR KACY JACOBSON . Order #: [id number] CLICK HERE TO VIEW EXAM ECHOCARDIOGRAM REPORT [...] M.D. on 09/24/2022 at 16:24 Normal [facility] CBC AUTO DIFFon 09-10-2022 BASO # 0.1 103/ul Normal 0.0-0.1 [facility] Comment on above: Performed By: #### C BC #### [facility] [address] [place] [address] Dr. Ayush Sorto Basophils/100 WBC (Bld) 0.8 % Normal 0.2-2.0 [facility] Comment on above: Performed By: #### C BC #### [facility] [address] [place] [address] Dr. Ayush Sorto EO # 0.1 103/ul Normal 0.0-0.7 [facility] Comment on above: Performed By: #### C BC #### [facility] [address] [place] [address] Dr. Ayush Sorto Eosinophils/100 WBC (Bld) 1.3 % Normal 0.9-7.0 [facility] Comment on above: Performed By: #### C BC #### [facility] [address] [place] [address] Dr. Ayush oSrto Erythrocyte distribution width (RBC) [Ratio] 12.8 % Normal 11.0-15.0 [facility] Comment on above: Performed By: #### C BC #### [facility] [address] [place] [address] Dr. Ayush Sorto Hematocrit (Bld) [Volume fraction] 48.5 % Normal 42.0-54.0 [facility] Comment on above: Performed By: #### C BC #### [facility] Laboratory [address] [place] [address] Dr. Ayush Sorto Hemoglobin (Bld) [Mass/Vol] 16.2 g/dL Normal 14.0-18.0 [facility] Comment on above: Performed By: #### C BC #### [facility] [address] [place] [address] Dr. Ayush Sorto IG # 0.01 10e3/ul Normal 0.00-0.03 [facility] Comment on above: Performed By: #### C BC #### [facility] [address] [place] [address] Dr. Ayush Sorto IG % 0.2 % Normal 0.0-0.5 [facility] Comment on above: Performed By: #### C BC #### [facility] [address] [place] [address] Dr. Ayush Sorto LYMPH # 1.0 103/ul Critically low 1.2-3.8 [facility] Comment on above: Performed By: #### C BC #### [facility] [address] [place] [address] Dr. Ayush Sorto Lymphocytes/100 WBC (Bld) 15.6 % Critically low 20.5-60.0 [facility] Comment on above: Performed By: #### C BC #### [facility] [address] [place] [address] Dr. Ayush Sorto MANUAL DIFF REQ NO Normal [facility] Comment on above: Performed By: #### C BC #### [facility] [address] [place] [address] Dr. Ayush Sorto MCH (RBC) [Entitic mass] 30.5 pg Normal 25.9-34.0 [facility] Comment on above: Performed By: #### C BC #### [facility] [address] [place] [address] Dr. Ayush Sorto MCHC (RBC) [Mass/Vol] 33.4 g/dL Normal 29.9-35.2 [facility] Comment on above: Performed By: #### C BC #### [facility] [address] [address] [address] Ayush Sorto MCV (RBC) [Entitic vol] 91.3 fL Normal 80.0-94.0 [facility] Comment on above: Performed By: #### C BC #### [facility] [address] [address] [address] Ayush Sorto MONO # 0.6 103/ul Normal 0.3-0.8 [facility] Comment on above: Performed By: #### C BC #### [facility] [address] [address] [address] Ayush Sorto Monocytes/100 WBC (Bld) 9.2 % Normal 1.7-12.0 [facility] Comment on above: Performed By: #### C BC #### [facility] [address] [place] [address] Dr. Ayush Sorto NEUT # 4.5 103/ul Normal 1.4-6.5 [facility] Comment on above: Performed By: #### C BC #### [facility] [address] [place] [address] Dr. Ayush Sorto Neutrophils/100 WBC (Bld) 72.9 % Normal 43.0-75.0 [facility] Comment on above: Performed By: #### C BC #### [facility] [address] [address] [address] Ayush Sorto Platelet mean volume (Bld) [Entitic vol] 8.9 fL Critically low 9.5-13.5 [facility] Comment on above: Performed By: #### C BC #### [facility] [address] [address] [address] Ayush Sorto PLT 226 103/ul Normal 150-450 [facility] Comment on above: Performed By: #### C BC #### [facility] [address] [address] [address] Ayush Sorto RBC 5.31 106/ul Normal 4.70-6.10 [facility] Comment on above: Performed By: #### C BC #### [facility] [address] [address] [address] Ayush Sorto WBC 6.2 103/ul Normal 4.0-11.0 [facility] Comment on above: Performed By: #### C BC #### [facility] [address] [address] [address] Ayush Sorto LIPID PROFILEon 09-10-2022 CHOL-HDL RATIO NORM SEE BELOW Normal [facility] Comment on above: Result Comment: 3.3 - 4.4 LOW RISK 4.4 - 7.1 AVERAGE RISK 7.1 - 11.0 MODERATE RISK >11.0 HIGH RISK Performed By: #### T 7, URIC, TSH, CMP, LIPID #### [facility] [address] [place] [address] Dr. Ayush Sorto Cholesterol [Mass/Vol] 206 mg/dL Critically high <=200 [facility] Comment on above: Performed By: #### T 7, URIC, TSH, CMP, LIPID #### [facility] [address] [place] [address] Dr. Ayush Sorto Cholesterol in HDL [Mass/Vol] 73 mg/dL Critically high 40-60 [facility] Comment on above: Performed By: #### T 7, URIC, TSH, CMP, LIPID #### [facility] [address] [address] [address] Ayush Sorto Cholesterol in LDL [Mass/Vol] 123.2 mg/dL Normal [facility] Comment on above: Performed By: #### T 7, URIC, TSH, CMP, LIPID #### [facility] [address] [place] [address] Dr. Ayush Sorto Cholesterol.total/C holesterol in HDL [Mass ratio] 2.8 {ratio} Normal [facility] Comment on above: Performed By: #### T 7, URIC, TSH, CMP, LIPID #### [facility] [address] [place] [address] Dr. Ayush Sorto HDL NORMAL > or = 60 mg/dl - LO W CARDIOVASCULAR RISK <40 mg/dl - HIGH CARDIOVASCULAR RISK Normal [facility] Comment on above: Performed By: #### T 7, URIC, TSH, CMP, LIPID #### [facility] [address] [address] [address] Ayush Sorto LDL CALC NORMAL SEE BELOW Normal [facility] Comment on above: Result Comment: <100 mg/dl OPTIMAL 100 - 129 mg/dl NEAR OR ABOVE OPTIMAL 130 - 159 mg/dl BORDERLINE HIGH 160 - 189 mg/dl HIGH >190 mg/dl VERY HIGH Performed By: #### T 7, URIC, TSH, CMP, LIPID #### [facility] [address] [address] [address] Ayush Sorto Triglyceride [Mass/Vol] 49 mg/dL Normal <=150 [facility] Comment on above: Performed By: #### T 7, URIC, TSH, CMP, LIPID #### [facility] [address] [address] [address] Ayush Sorto VLDL CALC 9.8 mg/dL Normal [facility] Comment on above: Performed By: #### T 7, URIC, TSH, CMP, LIPID #### [facility] [address] [place] [address] Dr. Ayush Sorto PROF 14(COMP METB)on 022 Albumin [Mass/Vol] 4.0 g/dL Normal 3.4-5.0 [facility] Comment on above: Performed By: #### T 7, URIC, TSH, CMP, LIPID #### [facility] [address] [address] [address] Ayush Sorto Albumin/Globulin [Mass ratio] 1.2 {ratio} Normal [facility] Comment on above: Performed By: #### T 7, URIC, TSH, CMP, LIPID #### [facility] [address] [address] [address] Ayush Sorto ALP [Catalytic activity/Vol] 83 U/L Normal 46-116 [facility] Comment on above: Performed By: #### T 7, URIC, TSH, CMP, LIPID #### [facility] [address] [address] [address] Ayush Sorto ALT [Catalytic activity/Vol] 35 U/L Normal 16-63 [facility] Comment on above: Performed By: #### T 7, URIC, TSH, CMP, LIPID #### [facility] [address] [address] [address] Ayush Sorto Anion gap [Moles/Vol] 9.0 mmol/L Normal [facility] Comment on above: Performed By: #### T 7, URIC, TSH, CMP, LIPID #### [facility] [address] [place] [address] Dr. Ayush Sorto AST [Catalytic activity/Vol] 26 U/L Normal 15-37 [facility] Comment on above: Performed By: #### T 7, URIC, TSH, CMP, LIPID #### [facility] [address] [place] [address] Dr. Ayush Sorto Bilirubin [Mass/Vol] 1.0 mg/dL Normal 0.2-1.0 [facility] Comment on above: Performed By: #### T 7, URIC, TSH, CMP, LIPID #### [facility] [address] [place] [address] Dr. Ayush Sorto Calcium [Mass/Vol] 9.5 mg/dL Normal 8.5-10.1 [facility] Comment on above: Performed By: #### T 7, URIC, TSH, CMP, LIPID #### [facility] [address] [place] [address] Dr. Ayush Sorto Chloride [Moles/Vol] 105 mmol/L Normal 98-107 [facility] Comment on above: Performed By: #### T 7, URIC, TSH, CMP, LIPID #### [facility] [address] [place] [address] Dr. Ayush Sorto CO2 [Moles/Vol] 27.7 mmol/L Normal 21.0-32.0 [facility] Comment on above: Performed By: #### T 7, URIC, TSH, CMP, LIPID #### [facility] [address] [place] [address] Dr. Ayush Sorto Creatinine [Mass/Vol] 0.90 mg/dL Normal 0.70-1.30 [facility] Comment on above: Performed By: #### T 7, URIC, TSH, CMP, LIPID #### [facility] [address] [address] [address] Ayush Sorto EGFR-AF MACANESE >60 Normal >=60 [facility] Comment on above: Performed By: #### T 7, URIC, TSH, CMP, LIPID #### [facility] [address] [address] [address] Ayush Sorto EGFR-NON AF MACANESE >60 Normal >=60 [facility] Comment on above: Performed By: #### T 7, URIC, TSH, CMP, LIPID #### [facility] [address] [address] [address] Ayush Sorto Globulin (S) [Mass/Vol] 3.3 g/dL Normal [facility] Comment on above: Performed By: #### T 7, URIC, TSH, CMP, LIPID #### [facility] [address] [place] [address] Dr. Ayush Sorto Glucose [Mass/Vol] 105 mg/dL Normal 74-106 [facility] Comment on above: Performed By: #### T 7, URIC, TSH, CMP, LIPID #### [facility] [address] [address] [address] Ayush Sorto Potassium [Moles/Vol] 4.7 mmol/L Normal 3.5-5.1 [facility] Comment on above: Performed By: #### T 7, URIC, TSH, CMP, LIPID #### [facility] [address] [address] [address] Ayush Sorto Protein [Mass/Vol] 7.3 g/dL Normal 6.4-8.2 [facility] Comment on above: Performed By: #### T 7, URIC, TSH, CMP, LIPID #### [facility] [address] [address] [address] Ayush Sorto Sodium [Moles/Vol] 137 mmol/L Normal 136-145 [facility] Comment on above: Performed By: #### T 7, URIC, TSH, CMP, LIPID #### [facility] [address] [address] [address] Ayush Sorto Urea nitrogen [Mass/Vol] 19.0 mg/dL Critically high 7.0-18.0 [facility] Comment on above: Performed By: #### T 7, URIC, TSH, CMP, LIPID #### [facility] [address] [place], [place] [address] Dr. Ayush Sorto Urea nitrogen/Creatinine [Mass ratio] 21.1 mg/mg Normal [facility] Comment on above: Performed By: #### T 7, URIC, TSH, CMP, LIPID #### [facility] [address] [place], [place] [address] Dr. Ayush Sorto BASIC METABOLIC PANELon 10-2 Calcium mass conc 9.3 mg/dL Normal 8.6-10.3 [facility] Comment on above: Order Comment: No: D o not add to previous draw Performed By: #### 0 0121, 82092, 65212 ####[facility] [place] [address], [facility] Chloride molar conc 102 mmol/L Normal 98-107 [facility] Comment on above: Order Comment: No: D o not add to previous draw Performed By: #### 0 0121, 77126, 85895 ####[facility] [place] [address], [facility] CO2 molar conc 27 mmol/L Normal 21-31 [facility] Comment on above: Order Comment: No: D o not add to previous draw Performed By: #### 0 0121, 41664, 81689 ####[facility] [address], [place] Creatinine mass conc 0.73 mg/dL Normal 0.70-1.30 [facility] Comment on above: Order Comment: No: D o not add to previous draw Performed By: #### 0 0121, 33023, 69592 ####[facility] [place] [address], [place] GFR/1.73 sq M predicted among blacks MDRD vol rate/area (S/P/Bld) mL/min/{1.73_m2} Normal >60 [facility] Comment on above: Order Comment: No: D o not add to previous draw Performed By: #### 0 0121, 02176, 02375 ####[facility] [place] [address], [facility] GFR/1.73 sq M predicted among non-blacks MDRD vol rate/area (S/P/Bld) mL/min/{1.73_m2} Normal >60 [facility] Comment on above: Order Comment: No: D o not add to previous draw Performed By: #### 0 0121, 22399, 46017 ####[facility] [place] [address], [facility] Glucose mass conc 109 mg/dL High 70-100 [facility] Comment on above: Order Comment: No: D o not add to previous draw Performed By: #### 0 0121, 19784, 75582 ####[facility] [place] [address], [facility] Potassium molar conc 4.1 mmol/L Normal 3.5-5.1 [facility] Comment on above: Order Comment: No: D o not add to previous draw Performed By: #### 0 0121, 67576, 67598 ####[facility] [place] [address], [facility] Sodium molar conc 136 mmol/L Normal 136-145 [facility] Comment on above: Order Comment: No: D o not add to previous draw Performed By: #### 0 0121, 20264, 61875 ####[facility] [place] [address], [facility] Urea nitrogen mass conc 10 mg/dL Normal 7-25 [facility] Comment on above: Order Comment: No: D o not add to previous draw Performed By: #### 0 0121, 82668, 87201 ####[facility] CBC COMPLETE BLOOD COUNTon 1 - Erythrocyte distribution width Auto Ratio (RBC) 12.8 % Normal 11.5-15.0 [facility] Comment on above: Order Comment: No: D o not add to previous draw Performed By: #### 0 0121, 36767, 78779 ####[facility] [facility] Hematocrit Auto Volume Fraction (Bld) 45.7 % Normal 39.0-50.0 [facility] Comment on above: Order Comment: No: D o not add to previous draw Performed By: #### 0 0121, 20133, 25100 ####[facility] Hemoglobin mass conc (Bld) 15.6 g/dL Normal 13.0-17.0 [facility] Comment on above: Order Comment: No: D o not add to previous draw Performed By: #### 0 0121, 36748, 66673 ####[facility]3000 [facility].[address] MCH Auto Entitic mass (RBC) 30.4 pg Normal 27.0-33.0 [facility] Comment on above: Order Comment: No: D o not add to previous draw Performed By: #### 0 0121, 08688, 16429 ####[facility] [facility].[address] MCHC Auto mass conc (RBC) 34.1 g/dL Normal 32.0-35.0 [facility] Comment on above: Order Comment: No: D o not add to previous draw Performed By: #### 0 0121, 55851, 77050 ####[facility] [facility] MCV Auto Entitic volume (RBC) 89.1 fL Normal 82.0-98.0 [facility] Comment on above: Order Comment: No: D o not add to previous draw Performed By: #### 0 0121, 68514, 47281 ####[facility] [facility].[address] Nucleated RBC/100 WBC Ratio (Bld) 0 % Normal 0-0 [facility] Comment on above: Order Comment: No: D o not add to previous draw Performed By: #### 0 0121, 55013, 90441 ####[facility] [facility].[address] PLAT CNT 218 10*3/uL Normal 150-400 [facility] Comment on above: Order Comment: No: D o not add to previous draw Performed By: #### 0 0121, 36140, 50675 ####[facility] RBC Auto #/vol (Bld) 5.13 10*6/uL Normal 4.20-5.70 [facility] Comment on above: Order Comment: No: D o not add to previous draw Performed By: #### 0 0121, 80265, 46492 ####[facility] [facility].[address] WBC Auto #/vol (Bld) 6.96 10*3/uL Normal 4.00-10.60 [facility] Comment on above: Order Comment: No: D o not add to previous draw Performed By: #### 0 0121, 30767, 08936 ####[facility] [facility].[address] Cardiovascular Lab Reporton 09-14-2018 Cardiovascular Lab Report [facility]: [id number] Physician: Lizette Montano M.D.Medicine Service Date: 09/13/2018Division of Birthdate: 1960Cardiology Room #: 3CD [id number] CardiovascularServicesUniversi [facility] HospitalRaefvnpZgtvv[address], [place] [address]Cddos Fax Cardiovascular Laboratory ReportPROCEDURE: Transesophageal echocardiogram and cardioversion.INDICATION: Atrial fibrillation.FELLOW: Tanya Botello M.D.PROCEDURE IN DETAIL: An informed consent was obtained from the patientafter explaining indications, risks, and benefits, and alternatives. Thepatient understood and agreed and signed the consent form. The patient wasbrought to the labor relations teacher and MOJGAN was performed under conscious sedation. Thepatient obtained a total of 10 mg of Versed and 100 mcg of fentanyl duringthe procedure. The transesophageal echocardiogram did not show anythrombus in the left atrial appendage. Full MOJGAN report is dictatedelsewrivers[facility]. After the transesophageal echocardiogram, synchronized biphasiccardioversion was done with 300 joules of energy. The patient successfullyconverted to sinus rhythm as evidenced by the EKG done postprocedure. Nocomplications throughout the procedure.Electronically Signed by:Lizette Haines M.D. 09/19/2018 08:34 P Lizette Haines M.D. I was present for the entire procedure. Date Dict: 09/13/2018/11:49 Yudi/Al Brownlee Trans: 09/14/2018 06:55 A/Marguerite_JN:[id number]: Kacy Jacobson M.D. [address] [facility] [address] Yury Funez M.D. [address] [place] [address] Normal [facility] APTTon 09-13-2018 aPTT Coag time (Bld) 86.4 s Critically high 25.0-35.0 [facility] Comment on above: Order Comment: No: D [...] PRESENCEOF HEPARIN. Performed By: #### 0 0121, 23474, 50197 ####[facility] [facility].[address] aPTT Coag time (Bld) 41.4 s High 25.0-35.0 [facility] Comment on above: Result Comment: ALL RESULTS [...] THIS PURPOSE. Performed By: #### 0 0121, 73655, 40065 ####[facility]3000 [facility].[address] UFH HEPARIN ASSAYon 09-13-20 18 UNFRACTIONATED HEPARIN 0.64 IU/mL Normal 0.30-0.70 [facility] Comment on above: Result Comment: Jackson roxaban and Apixaban will interfere with the anti Xa assay used tomonitor UFH and LMWH. Performed By: #### 0 0121, 75363, 66505 ####[facility]3000 [facility].[address] UNFRACTIONATED HEPARIN 0.25 IU/mL Low 0.30-0.70 [facility] Comment on above: Result Comment: Jackson roxaban and Apixaban will interfere with the anti Xa assay used tomonitor UFH and LMWH. Performed By: #### 0 0121, 58207, 37405 ####[place] [address] [facility].[address] BASIC METABOLIC PANELon 10-2 Calcium mass conc 8.6 mg/dL Normal 8.6-10.3 [facility] Comment on above: Order Comment: No: D o not add to previous draw Performed By: #### 0 0121, 72944, 24603 ####[facility] [id number], [facility] Chloride molar conc 106 mmol/L Normal 98-107 [facility] Comment on above: Order Comment: No: D o not add to previous draw Performed By: #### 0 0121, 66926, 54491 ####[facility] [address], [place] CO2 molar conc 25 mmol/L Normal 21-31 [facility] Comment on above: Order Comment: No: D o not add to previous draw Performed By: #### 0 0121, 06817, 50369 ####[facility] [place] [address], [place] Creatinine mass conc 0.64 mg/dL Low 0.70-1.30 [facility] Comment on above: Order Comment: No: D o not add to previous draw Performed By: #### 0 0121, 27313, 21271 ####[facility] [address], [place] GFR/1.73 sq M predicted among blacks MDRD vol rate/area (S/P/Bld) mL/min/{1.73_m2} Normal >60 [facility] Comment on above: Order Comment: No: D o not add to previous draw Performed By: #### 0 0121, 37480, 35046 ####[facility] [address], [place] GFR/1.73 sq M predicted among non-blacks MDRD vol rate/area (S/P/Bld) mL/min/{1.73_m2} Normal >60 [facility] Comment on above: Order Comment: No: D o not add to previous draw Performed By: #### 0 0121, 77591, 42986 ####[facility] [address], [facility] Glucose mass conc 100 mg/dL Normal 70-100 [facility] Comment on above: Order Comment: No: D o not add to previous draw Performed By: #### 0 0121, 38232, 56674 ####[facility] [place] [address], [facility] Potassium molar conc 4.0 mmol/L Normal 3.5-5.1 [facility] Comment on above: Order Comment: No: D o not add to previous draw Performed By: #### 0 0121, 74327, 48882 ####[facility]3000 [facility].[address] Sodium molar conc 137 mmol/L Normal 136-145 [facility] Comment on above: Order Comment: No: D o not add to previous draw Performed By: #### 0 0121, 84820, 41542 ####[facility]3000 [facility].[address] Urea nitrogen mass conc 14 mg/dL Normal 7-25 [facility] Comment on above: Order Comment: No: D o not add to previous draw Performed By: #### 0 0121, 64291, 13319 ####[facility]3000 [facility].[address] CBC W/DIFFon 09-12-2018 ABS BASOPHILS 0.0 10*3/uL Normal 0.0-0.2 [facility] Comment on above: Order Comment: No: D o not add to previous draw Performed By: #### 0 0121, 04591, 94514 ####[facility]3000 [facility].[address] ABS IMM GRANS 0.0 10*3/uL Normal 0.0-0.2 [facility] Comment on above: Order Comment: No: D o not add to previous draw Performed By: #### 0 0121, 03658, 36223 ####[facility] [facility] [place] [address], [facility] ABS NEUTROPHILS 3.1 10*3/uL Normal 1.6-7.6 [facility] Comment on above: Order Comment: No: D o not add to previous draw Performed By: #### 0 0121, 86842, 37055 ####[facility] [place] [address], [facility] Basophils Auto #/vol (Bld) 0.7 % Normal 0.0-1.0 [facility] Comment on above: Order Comment: No: D o not add to previous draw Performed By: #### 0 0121, 08623, 00030 ####[facility] [facility] [place] [address], [facility] Eosinophils Auto #/vol (Bld) 0.2 10*3/uL Normal 0.0-0.5 [facility] Comment on above: Order Comment: No: D o not add to previous draw Performed By: #### 0 0121, 75891, 21267 ####[facility] [facility] [place] [address], [facility] Eosinophils/100 WBC Auto (Bld) 3.6 % Normal 0.0-6.0 [facility] Comment on above: Order Comment: No: D o not add to previous draw Performed By: #### 0 0121, 22455, 03112 ####[facility] [facility] [place] [address], [facility] Erythrocyte distribution width Auto Ratio (RBC) 12.7 % Normal 11.5-15.0 [facility] Comment on above: Order Comment: No: D o not add to previous draw Performed By: #### 0 0121, 32199, 11060 ####[facility] [place] [address], [facility] Hematocrit Auto Volume Fraction (Bld) 45.5 % Normal 39.0-50.0 [facility] Comment on above: Order Comment: No: D o not add to previous draw Performed By: #### 0 0121, 36192, 06265 ####[facility] [facility].[address] Hemoglobin mass conc (Bld) 15.2 g/dL Normal 13.0-17.0 [facility] Comment on above: Order Comment: No: D o not add to previous draw Performed By: #### 0 0121, 04914, 34252 ####[facility] [facility].[address] IMMATURE GRANS 0.4 % Normal 0.0-1.0 [facility] Comment on above: Order Comment: No: D o not add to previous draw Performed By: #### 0 0121, 20335, 90364 ####[facility] [facility].[address] Lymphocytes Auto #/vol (Bld) 1.5 10*3/uL Normal 1.2-4.0 [facility] Comment on above: Order Comment: No: D o not add to previous draw Performed By: #### 0 0121, 32248, 98734 ####[place] [address] [facility].[address] Lymphocytes/100 WBC Auto (Bld) 27.8 % Normal 20.0-45.0 [facility] Comment on above: Order Comment: No: D o not add to previous draw Performed By: #### 0 0121, 97620, 20368 ####[facility] [facility].[address] MCH Auto Entitic mass (RBC) 30.0 pg Normal 27.0-33.0 [facility] Comment on above: Order Comment: No: D o not add to previous draw Performed By: #### 0 0121, 99633, 25194 ####[facility] MCHC Auto mass conc (RBC) 33.4 g/dL Normal 32.0-35.0 [facility] Comment on above: Order Comment: No: D o not add to previous draw Performed By: #### 0 0121, 51788, 44157 ####[facility] [facility] MCV Auto Entitic volume (RBC) 89.9 fL Normal 82.0-98.0 [facility] Comment on above: Order Comment: No: D o not add to previous draw Performed By: #### 0 0121, 47274, 43732 ####[facility] [facility].[address] Monocytes Auto #/vol (Bld) 0.6 10*3/uL Normal 0.1-1.0 [facility] Comment on above: Order Comment: No: D o not add to previous draw Performed By: #### 0 0121, 99258, 86676 ####[facility]3000 [facility].[address] MONOS 11.4 % Normal 5.0-12.0 [facility] Comment on above: Order Comment: No: D o not add to previous draw Performed By: #### 0 0121, 35624, 08737 ####[facility] [facility].[address] Neutrophils/100 WBC Auto (Bld) 56.1 % Normal 40.0-72.0 [facility] Comment on above: Order Comment: No: D o not add to previous draw Performed By: #### 0 0121, 53022, 31702 ####[facility] [place] [address], [facility] Nucleated RBC/100 WBC Ratio (Bld) 0 % Normal 0-0 [facility] Comment on above: Order Comment: No: D o not add to previous draw Performed By: #### 0 0121, 31584, 34118 ####[facility] PLAT CNT 188 10*3/uL Normal 150-400 [facility] Comment on above: Order Comment: No: D o not add to previous draw Performed By: #### 0 0121, 55902, 64860 ####[facility] RBC Auto #/vol (Bld) 5.06 10*6/uL Normal 4.20-5.70 [facility] Comment on above: Order Comment: No: D o not add to previous draw Performed By: #### 0 0121, 00186, 71233 ####[facility] [facility] WBC Auto #/vol (Bld) 5.54 10*3/uL Normal 4.00-10.60 [facility] Comment on above: Order Comment: No: D o not add to previous draw Performed By: #### 0 0121, 69910, 95123 ####[place] [address] [facility].[address] MAGNESIUM BLOODon 09-12-2018 Magnesium mass conc 1.9 mg/dL Normal 1.9-2.7 [facility] Comment on above: Order Comment: No: D o not add to previous draw Performed By: #### 0 0121, 95370, 61746 ####[facility] UFH HEPARIN ASSAYon 09-12-20 18 UNFRACTIONATED HEPARIN 0.26 IU/mL Low 0.30-0.70 [facility] Comment on above: Result Comment: Jackson roxaban and Apixaban will interfere with the anti Xa assay used tomonitor UFH and LMWH. Performed By: #### 0 0121, 27967, 26288 ####[facility] UNFRACTIONATED HEPARIN 0.72 IU/mL High 0.30-0.70 [facility] Comment on above: Result Comment: Jackson roxaban and Apixaban will interfere with the anti Xa assay used tomonitor UFH and LMWH. Performed By: #### 0 0121, 27317, 78119 ####[facility] UNFRACTIONATED HEPARIN 0.49 IU/mL Normal 0.30-0.70 [facility] Comment on above: Result Comment: Lisa roxaban and Apixaban will interfere with the anti Xa assay used tomonitor UFH and LMWH. Performed By: #### 0 0121, 14790, 79421 ####[facility] APTTon 09-11-2018 aPTT Coag time (Bld) 101.0 s Critically high 25.0-35.0 [facility] Comment on above: Order Comment: No: D [...] RNAT 615 Performed By: #### 0 0121, 52991, 44378 ####[facility] BASIC METABOLIC PANELon 2 Calcium mass conc 8.9 mg/dL Normal 8.6-10.3 [facility] Comment on above: Order Comment: No: D o not add to previous draw Performed By: #### 0 0121, 16574, 53990 ####[facility] [address], [facility] Chloride molar conc 106 mmol/L Normal 98-107 [facility] Comment on above: Order Comment: No: D o not add to previous draw Performed By: #### 0 0121, 51827, 22178 ####[facility] [place] [address], [place] CO2 molar conc 25 mmol/L Normal 21-31 [facility] Comment on above: Order Comment: No: D o not add to previous draw Performed By: #### 0 0121, 49571, 81721 ####[facility] [facility] [address], [facility] Creatinine mass conc 0.84 mg/dL Normal 0.70-1.30 [facility] Comment on above: Order Comment: No: D o not add to previous draw Performed By: #### 0 0121, 71356, 15205 ####[facility] [facility] [address], [place] GFR/1.73 sq M predicted among blacks MDRD vol rate/area (S/P/Bld) mL/min/{1.73_m2} Normal >60 [facility] Comment on above: Order Comment: No: D o not add to previous draw Performed By: #### 0 0121, 47311, 71958 ####[facility] [facility] [place] [address], [facility] GFR/1.73 sq M predicted among non-blacks MDRD vol rate/area (S/P/Bld) mL/min/{1.73_m2} Normal >60 [facility] Comment on above: Order Comment: No: D o not add to previous draw Performed By: #### 0 0121, 54856, 96445 ####[facility] [address], [place] Glucose mass conc 103 mg/dL High 70-100 [facility] Comment on above: Order Comment: No: D o not add to previous draw Performed By: #### 0 0121, 62739, 38652 ####[facility] [facility].[address] Potassium molar conc 4.0 mmol/L Normal 3.5-5.1 [facility] Comment on above: Order Comment: No: D o not add to previous draw Performed By: #### 0 0121, 74264, 23737 ####[facility] [facility].[address] Sodium molar conc 138 mmol/L Normal 136-145 [facility] Comment on above: Order Comment: No: D o not add to previous draw Performed By: #### 0 0121, 63813, 97021 ####[facility] [facility].[address] Urea nitrogen mass conc 20 mg/dL Normal 7-25 [facility] Comment on above: Order Comment: No: D o not add to previous draw Performed By: #### 0 0121, 59760, 34838 ####[facility] [facility].[address] CBC W/DIFFon 09-11-2018 ABS BASOPHILS 0.0 10*3/uL Normal 0.0-0.2 [facility] Comment on above: Order Comment: No: D o not add to previous draw Performed By: #### 5 0103 ####[facility] [facility].[address] ABS IMM GRANS 0.0 10*3/uL Normal 0.0-0.2 [facility] Comment on above: Order Comment: No: D o not add to previous draw Performed By: #### 5 0103 ####[facility] [facility].[address] ABS NEUTROPHILS 3.1 10*3/uL Normal 1.6-7.6 [facility] Comment on above: Order Comment: No: D o not add to previous draw Performed By: #### 5 0103 ####[facility] [place] [address], [facility] Basophils Auto #/vol (Bld) 0.8 % Normal 0.0-1.0 [facility] Comment on above: Order Comment: No: D o not add to previous draw Performed By: #### 5 0103 ####[facility] [place] [address], [facility] Eosinophils Auto #/vol (Bld) 0.2 10*3/uL Normal 0.0-0.5 [facility] Comment on above: Order Comment: No: D o not add to previous draw Performed By: #### 5 0103 ####[facility] [place] [address], [facility] Eosinophils/100 WBC Auto (Bld) 3.5 % Normal 0.0-6.0 [facility] Comment on above: Order Comment: No: D o not add to previous draw Performed By: #### 5 0103 ####[facility] Erythrocyte distribution width Auto Ratio (RBC) 12.8 % Normal 11.5-15.0 [facility] Comment on above: Order Comment: No: D o not add to previous draw Performed By: #### 5 0103 ####[facility] Hematocrit Auto Volume Fraction (Bld) 45.3 % Normal 39.0-50.0 [facility] Comment on above: Order Comment: No: D o not add to previous draw Performed By: #### 5 0103 ####[facility] Hemoglobin mass conc (Bld) 15.3 g/dL Normal 13.0-17.0 [facility] Comment on above: Order Comment: No: D o not add to previous draw Performed By: #### 5 0103 ####[facility] IMMATURE GRANS 0.4 % Normal 0.0-1.0 [facility] Comment on above: Order Comment: No: D o not add to previous draw Performed By: #### 5 0103 ####[facility] Lymphocytes Auto #/vol (Bld) 1.4 10*3/uL Normal 1.2-4.0 [facility] Comment on above: Order Comment: No: D o not add to previous draw Performed By: #### 5 0103 ####[facility] Lymphocytes/100 WBC Auto (Bld) 25.9 % Normal 20.0-45.0 [facility] Comment on above: Order Comment: No: D o not add to previous draw Performed By: #### 5 0103 ####[facility] MCH Auto Entitic mass (RBC) 30.5 pg Normal 27.0-33.0 [facility] Comment on above: Order Comment: No: D o not add to previous draw Performed By: #### 5 0103 ####[facility] MCHC Auto mass conc (RBC) 33.8 g/dL Normal 32.0-35.0 [facility] Comment on above: Order Comment: No: D o not add to previous draw Performed By: #### 5 0103 ####[facility] MCV Auto Entitic volume (RBC) 90.2 fL Normal 82.0-98.0 [facility] Comment on above: Order Comment: No: D o not add to previous draw Performed By: #### 5 0103 ####[facility] [place] [address], [facility] Monocytes Auto #/vol (Bld) 0.5 10*3/uL Normal 0.1-1.0 [facility] Comment on above: Order Comment: No: D o not add to previous draw Performed By: #### 5 0103 ####[facility]3000 [facility].[address] MONOS 10.2 % Normal 5.0-12.0 [facility] Comment on above: Order Comment: No: D o not add to previous draw Performed By: #### 5 0103 ####[facility]3000 [facility].[address] Neutrophils/100 WBC Auto (Bld) 59.2 % Normal 40.0-72.0 [facility] Comment on above: Order Comment: No: D o not add to previous draw Performed By: #### 5 0103 ####[facility]3000 [facility].[address] Nucleated RBC/100 WBC Ratio (Bld) 0 % Normal 0-0 [facility] Comment on above: Order Comment: No: D o not add to previous draw Performed By: #### 5 3 ####[facility] [place] [address], [facility] PLAT CNT 226 10*3/uL Normal 150-400 [facility] Comment on above: Order Comment: No: D o not add to previous draw Performed By: #### 5 0103 ####[facility] [place] [address], [facility] RBC Auto #/vol (Bld) 5.02 10*6/uL Normal 4.20-5.70 [facility] Comment on above: Order Comment: No: D o not add to previous draw Performed By: #### 5 0103 ####[facility] WBC Auto #/vol (Bld) 5.21 10*3/uL Normal 4.00-10.60 [facility] Comment on above: Order Comment: No: D o not add to previous draw Performed By: #### 5 0103 ####[facility] MAGNESIUM BLOODon 09-11-2018 Magnesium mass conc 1.8 mg/dL Low 1.9-2.7 [facility] Comment on above: Order Comment: No: D o not add to previous draw Performed By: #### 0 0121, 23901, 72790 ####[facility] PHOSPHORUS BLOODon 8 Phosphate mass conc 3.0 mg/dL Normal 2.5-5.0 [facility] Comment on above: Order Comment: No: D o not add to previous draw Performed By: #### 0 0121, 97783, 38904 ####[facility] PROTHROMBIN TIMEon 8 INR Coag RelTime (PPP) 1.01 {INR} Normal 0.91-1.16 [facility] Comment on above: Order Comment: No: D [...] OF ACTION, CLINICALEFFECTIVENESS, AND OPTIMAL THERAPEUTIC RANGE. [id number]. Performed By: #### 0 0121, 05476, 03159 ####[facility]3000 [facility].[address] Prothrombin time (PT) Coag time (PPP) 13.3 s Normal 12.3-14.8 [facility] Comment on above: Order Comment: No: D o not add to previous draw Result Comment: ALL RESULTS MUST BE INTERPRETED WITH RESPECT TO BLOOD DRAWING ARTIFACTOR DILUTION ERROR OF ANTICOAGULANT AT THE TIME OF SAMPLING. Performed By: #### 0 0121, 56672, 97395 ####[facility]3000 [facility].[address] TROPONIN-Ion 09-11-2018 Troponin I.cardiac mass conc 0.00 ng/mL Normal 0.00-0.04 [facility] Comment on above: Order Comment: No: D o not add to previous draw Result Comment: REFE RENCE RANGES: 0.00 - 0.14 ng/ml NEGATIVE 0.15 - 0.25 ng/ml INDETERMINATE > 0.25 ng/ml INDICATIVE OF AN M.I. Performed By: #### 3 5200 ####[facility] [place] [address], [facility] UFH HEPARIN ASSAYon 09-11-20 18 UNFRACTIONATED HEPARIN 0.40 IU/mL Normal 0.30-0.70 [facility] Comment on above: Result Comment: Jackson roxaban and Apixaban will interfere with the anti Xa assay used tomonitor UFH and LMWH. Performed By: #### 0 0121, 04628, 97557 ####[facility] [place] [address], [facility] UNFRACTIONATED HEPARIN 0.39 IU/mL Normal 0.30-0.70 [facility] Comment on above: Result Comment: Jackson roxaban and Apixaban will interfere with the anti Xa assay used tomonitor UFH and LMWH. Performed By: #### 0 0121, 53467, 98020 ####[facility]3000 [facility].[address] UNFRACTIONATED HEPARIN 0.70 IU/mL Normal 0.30-0.70 [facility] Comment on above: Result Comment: Lisa roxaban and Apixaban will interfere with the anti Xa assay used tomonitor UFH and LMWH. Performed By: #### 0 0121, 12428, 97307 ####[facility]3000 [facility].[address] UNFRACTIONATED HEPARIN 0.49 IU/mL Normal 0.30-0.70 [facility] Comment on above: Result Comment: Jackson roxaban and Apixaban will interfere with the anti Xa assay used tomonitor UFH and LMWH. Performed By: #### 3 0477 ####[facility]3000 [facility].[address] APTTon 09-10-2018 aPTT Coag time (Bld) 26.2 s Normal 25.0-35.0 [facility] Comment on above: Result Comment: ALL RESULTS [...] THIS PURPOSE. Performed By: #### 5 6101, 05313 ####[facility] [place] [address], [facility] CBC W/DIFFon 09-10-2018 ABS BASOPHILS 0.0 10*3/uL Normal 0.0-0.2 [facility] Comment on above: Order Comment: No: D o not add to previous draw Performed By: #### 5 0103 ####[facility] ABS IMM GRANS 0.0 10*3/uL Normal 0.0-0.2 [facility] Comment on above: Order Comment: No: D o not add to previous draw Performed By: #### 5 0103 ####[facility] ABS NEUTROPHILS 6.0 10*3/uL Normal 1.6-7.6 [facility] Comment on above: Order Comment: No: D o not add to previous draw Performed By: #### 5 0103 ####[facility] Basophils Auto #/vol (Bld) 0.4 % Normal 0.0-1.0 [facility] Comment on above: Order Comment: No: D o not add to previous draw Performed By: #### 5 0103 ####[facility] Eosinophils Auto #/vol (Bld) 0.1 10*3/uL Normal 0.0-0.5 [facility] Comment on above: Order Comment: No: D o not add to previous draw Performed By: #### 5 0103 ####[facility] Eosinophils/100 WBC Auto (Bld) 1.1 % Normal 0.0-6.0 [facility] Comment on above: Order Comment: No: D o not add to previous draw Performed By: #### 5 0103 ####[facility] Erythrocyte distribution width Auto Ratio (RBC) 12.5 % Normal 11.5-15.0 [facility] Comment on above: Order Comment: No: D o not add to previous draw Performed By: #### 5 0103 ####[facility]3000 [facility].[address] Hematocrit Auto Volume Fraction (Bld) 48.8 % Normal 39.0-50.0 [facility] Comment on above: Order Comment: No: D o not add to previous draw Performed By: #### 5 0103 ####[facility]3000 [facility] Hemoglobin mass conc (Bld) 16.6 g/dL Normal 13.0-17.0 [facility] Comment on above: Order Comment: No: D o not add to previous draw Performed By: #### 5 0103 ####[facility]3000 [facility].[address] IMMATURE GRANS 0.3 % Normal 0.0-1.0 [facility] Comment on above: Order Comment: No: D o not add to previous draw Performed By: #### 5 0103 ####[facility]3000 [facility].[address] Lymphocytes Auto #/vol (Bld) 1.2 10*3/uL Normal 1.2-4.0 [facility] Comment on above: Order Comment: No: D o not add to previous draw Performed By: #### 5 3 ####[facility]3000 [facility].[address] Lymphocytes/100 WBC Auto (Bld) 14.7 % Low 20.0-45.0 [facility] Comment on above: Order Comment: No: D o not add to previous draw Performed By: #### 5 0103 ####[facility]3000 [facility].[address] MCH Auto Entitic mass (RBC) 30.3 pg Normal 27.0-33.0 [facility] Comment on above: Order Comment: No: D o not add to previous draw Performed By: #### 5 0103 ####[facility]3000 [facility].[address] MCHC Auto mass conc (RBC) 34.0 g/dL Normal 32.0-35.0 [facility] Comment on above: Order Comment: No: D o not add to previous draw Performed By: #### 5 0103 ####[facility]3000 [facility].[address] MCV Auto Entitic volume (RBC) 89.2 fL Normal 82.0-98.0 [facility] Comment on above: Order Comment: No: D o not add to previous draw Performed By: #### 5 0103 ####[facility] Monocytes Auto #/vol (Bld) 0.6 10*3/uL Normal 0.1-1.0 [facility] Comment on above: Order Comment: No: D o not add to previous draw Performed By: #### 5 3 ####[facility] MONOS 7.9 % Normal 5.0-12.0 [facility] Comment on above: Order Comment: No: D o not add to previous draw Performed By: #### 5 3 ####[facility]3000 [facility].[address] Neutrophils/100 WBC Auto (Bld) 75.6 % High 40.0-72.0 [facility] Comment on above: Order Comment: No: D o not add to previous draw Performed By: #### 5 0103 ####[facility] Nucleated RBC/100 WBC Ratio (Bld) 0 % Normal 0-0 [facility] Comment on above: Order Comment: No: D o not add to previous draw Performed By: #### 5 0103 ####[facility] [address], [facility] PLAT CNT 243 10*3/uL Normal 150-400 [facility] Comment on above: Order Comment: No: D o not add to previous draw Performed By: #### 5 102 ####[facility] [facility] [place] [address], [facility] RBC Auto #/vol (Bld) 5.47 10*6/uL Normal 4.20-5.70 [facility] Comment on above: Order Comment: No: D o not add to previous draw Performed By: #### 5 102 ####[facility]3000 [facility] WBC Auto #/vol (Bld) 7.87 10*3/uL Normal 4.00-10.60 [facility] Comment on above: Order Comment: No: D o not add to previous draw Performed By: #### 5 102 ####[facility]3000 [facility].[address] COMP METABOLIC PANELon 09-10 Albumin mass conc 4.0 g/dL Normal 3.5-5.7 [facility] Comment on above: Order Comment: No: D o not add to previous draw Performed By: #### 0 0121, 99714, 06611 ####[facility]3000 [facility].[address] ALKALINE PHOSPH 59 IU/L Normal 34-104 [facility] Comment on above: Order Comment: No: D o not add to previous draw Performed By: #### 0 0121, 37867, 89476 ####[facility]3000 [facility].[address] ALT enzyme act/vol 22 U/L Normal 7-52 [facility] Comment on above: Order Comment: No: D o not add to previous draw Performed By: #### 0 0121, 97322, 71277 ####[facility] [place] [address], [facility] AST enzyme act/vol 20 U/L Normal 13-39 [facility] Comment on above: Order Comment: No: D o not add to previous draw Performed By: #### 0 0121, 71349, 99793 ####[facility] [address], [place] Bilirubin mass conc 0.8 mg/dL Normal 0.3-1.0 [facility] Comment on above: Order Comment: No: D o not add to previous draw Performed By: #### 0 0121, 23536, 33302 ####[facility] [place] [address], [facility] Calcium mass conc 8.8 mg/dL Normal 8.6-10.3 [facility] Comment on above: Order Comment: No: D o not add to previous draw Performed By: #### 0 0121, 72740, 38051 ####[facility] [place] [address], [place] Chloride molar conc 103 mmol/L Normal 98-107 [facility] Comment on above: Order Comment: No: D o not add to previous draw Performed By: #### 0 0121, 12615, 93295 ####[facility] [address], [place] CO2 molar conc 28 mmol/L Normal 21-31 [facility] Comment on above: Order Comment: No: D o not add to previous draw Performed By: #### 0 0121, 80057, 82370 ####[facility] [address], [place] Creatinine mass conc 0.93 mg/dL Normal 0.70-1.30 [facility] Comment on above: Order Comment: No: D o not add to previous draw Performed By: #### 0 0121, 48185, 75938 ####[facility] [place] [address], [facility] GFR/1.73 sq M predicted among blacks MDRD vol rate/area (S/P/Bld) mL/min/{1.73_m2} Normal >60 [facility] Comment on above: Order Comment: No: D o not add to previous draw Performed By: #### 0 0121, 28058, 37016 ####[facility] [place] [address], [place] GFR/1.73 sq M predicted among non-blacks MDRD vol rate/area (S/P/Bld) mL/min/{1.73_m2} Normal >60 [facility] Comment on above: Order Comment: No: D o not add to previous draw Performed By: #### 0 0121, 24768, 59514 ####[facility] [place] [address], [facility] Glucose mass conc 94 mg/dL Normal 70-100 [facility] Comment on above: Order Comment: No: D o not add to previous draw Performed By: #### 0 0121, 59473, 96523 ####[facility] [place] [address], [facility] Potassium molar conc 4.0 mmol/L Normal 3.5-5.1 [facility] Comment on above: Order Comment: No: D o not add to previous draw Performed By: #### 0 0121, 26222, 41390 ####[facility] [place] [address], [facility] Protein mass conc 6.8 g/dL Normal 6.0-8.3 [facility] Comment on above: Order Comment: No: D o not add to previous draw Performed By: #### 0 0121, 97622, 53991 ####[facility] [address], [place] Sodium molar conc 140 mmol/L Normal 136-145 [facility] Comment on above: Order Comment: No: D o not add to previous draw Performed By: #### 0 0121, 61703, 94283 ####[facility]3000 [facility].[address] Urea nitrogen mass conc 19 mg/dL Normal 7-25 [facility] Comment on above: Order Comment: No: D o not add to previous draw Performed By: #### 0 0121, 78595, 02050 ####[facility]3000 [facility].[address] PROTHROMBIN TIMEon 8 INR Coag RelTime (PPP) 0.93 {INR} Normal 0.91-1.16 [facility] Comment on above: Result Comment: ACCC P RECOMMENDED INR FOR WARFARIN THERAPY CONDITION INRPROPHYLAXIS OF VENOUS THROMBOSIS 2-3(HIGH-RISK SURGERY)TREATMENT OF VENOUS THROMBOSIS 2-3TREATMENT OF PULMONARY EMBOLISM 2-3PREVENTION OF SYSTEMIC EMBOLISM: 2-3 ACUTE MYOCARDIAL INFARCTION TISSUE HEART VALVES VALVULAR HEART DISEASE ATRIAL FIBRILLATION RECURRENT SYSTEMIC EMBOLISMMECHANICAL HEART VALVE 2.5-3.5 FROM: ORAL ANTICOAGULANTS. MECHANISM OF ACTION, CLINICALEFFECTIVENESS, AND OPTIMAL THERAPEUTIC RANGE. [id number];108:[id number]-246S. Performed By: #### 5 7041, 41233 ####[facility]3000 [facility].[address] Prothrombin time (PT) Coag time (PPP) 12.5 s Normal 12.3-14.8 [facility] Comment on above: Result Comment: ALL RESULTS MUST BE INTERPRETED WITH RESPECT TO BLOOD DRAWING ARTIFACTOR DILUTION ERROR OF ANTICOAGULANT AT THE TIME OF SAMPLING. Performed By: #### 5 6101, 00708 ####[facility] TROPONIN-Ion 09-10-2018 Troponin I.cardiac mass conc 0.00 ng/mL Normal 0.00-0.04 [facility] Comment on above: Order Comment: No: D o not add to previous draw Result Comment: REFE RENCE RANGES: 0.00 - 0.14 ng/ml NEGATIVE 0.15 - 0.25 ng/ml INDETERMINATE > 0.25 ng/ml INDICATIVE OF AN M.I. Performed By: #### 3 5200 ####[place] [address] Troponin I.cardiac mass conc 0.00 ng/mL Normal 0.00-0.04 [facility] Comment on above: Result Comment: REFE RENCE RANGES: 0.00 - 0.14 ng/ml NEGATIVE 0.15 - 0.25 ng/ml INDETERMINATE > 0.25 ng/ml INDICATIVE OF AN M.I. Performed By: #### 0 0121, 89859, 70352 ####[facility] [place] [address], [facility] TSH3on 09-10-2018 TSH 3RD GENERATION 1.05 uIU/mL Normal 0.34-5.60 [facility] Comment on above: Performed By: #### 0 0121, 62983, 86508 ####[facility]3000 [facility].[address] Vital Signs Date Time Vital Sign Value Performing Clinician Shashank linn 10-01-2023 08:20-0500 Body height 193.04 cm Sher Whitfield Other [facility] Other 10-01-2023 08:20-0500 Body mass index (BMI) [Ratio] 27.75 kg/m2 Sher Whitfield Other [facility] Other 10-01-2023 08:20-0500 Body weight 103.42 kg Sher Whitfield Other [facility] Actual Experience Other 1960 23:00-0500 >na< Ellie Rodríguez Dept. of Dermato logy Encounters Encounter Date Encounter Type Care Provider Facility Start: 10-31-2024 End: 10-31-2024 ambulatory [facility] Start: 09-12-2024 End: 09-12-2024 ambulatory [facility] Start: 05-23-2024 End: 05-23-2024 ambulatory [facility] Start: 05-09-2024 End: 05-09-2024 ambulatory [facility] Start: 05-02-2024 End: 05-02-2024 [facility] Start: 11-10-2023 End: 11-10-2023 ambulatory [facility] Start: 10-01-2023 Office outpatient ne w 30 minutes Sher Whitfield [facility] Start: 10-01-2023 End: 10-01-2023 ambulatory Sher Whitfield Facility:[facility] Start: 10-01-2023 End: 10-01-2023 ambulatory MD Kacy Jacobson Work Phone: [facility] Work Phone: Start: 10-01-2023 End: 10-01-2023 Patient encounter procedure MD Kacy Jacobson Work Phone: [facility] Work Phone: Start: 03-24-2023 Luke Reinoso Dept. [...] without abnormal findings DR KACY JACOBSON . [facility] Start: 01-22-2023 End: 01-23-[address] KACY JACOBSON . Facility:[facility] Start: 01-22-2023 End: 01-23-2023 Encounter for general adult medical examination without abnormal findings DR KACY JACOBSON . Facility:[facility] Start: 12-09-2022 End: 12-10-2022 ambulatory RENU HAROLDO Facility:[facility] Start: 10-27-2022 End: 10-28-2022 ambulatory RENU BERRIOSER Facility:[facility] Start: 10-08-2022 End: 10-09-2022 ambulatory RENU ZARCO Facility:[facility] Start: 09-24-2022 End: 09-25-2022 [facility] Start: 09-10-2022 End: 09-11-2022 ambulatory RENU ZARCO Facility:[facility] Start: 09-13-2018 End: 09-14-2018 Patient encounter procedure DEFAULT PHYSICIAN Facility:[facility] Start: 09-10-2018 End: 09-14-2018 Evaluation and management of inpatient AVE LUEVANO Facility:[facility] Start: 08-25-2018 End: 08-26-2018 Patient encounter procedure DEFAULT PHYSICIAN Facility:[facility] Procedures Date Procedure Procedure Detail Performing Clinician Start: 10-01-2023 X-ray of lumbar spin e, six views including bending views MD Kacy Jacobson Work Phone: Start: 03-24-2023 Ellie arita Start: 03-18-2023 [facility] [place]g 1st stage 5 blocks Luke Reinoso Start: 03-02-2023 Ellie arita Start: 01-22-2023 PSA screening RENU GARCIA Comment on above: Performed By: #### T 7, URIC, TSH, CMP, LIPID #### [facility] [address] [place], [place] [address] Dr. Ayush Sorto Start: 09-13-2018 [facility] Cardi ac Rhythm, Single LIZETTE V MOUKARBEL Immunizations Immunization Date Immunization Notes Care Provider Fa cility 1960 pneumococcal conjuga te vaccine, 7 valent Ellie Rodríguez Dept. of Dermatology Payers Date Payer Category Payer Unknown [id number] 2023 Medicare 2023 Self-pay 2006 Private Health Insurance [id number] 1960 Unknown [id number] 1960 Unknown [id number] 2.16.8 40.1.959468.3.579.2.647 1959 Unknown [id number] 2.16.8 40.1.393779.3.579.2.647 1959 Unknown [id number] 2.16.8 40.1.433310.3.579.2.647 1959 Unknown [id number] 2.16.84 0.1.326304.3.579.2.593 1959 Unknown [id number] 2.16.84 0.1.600164.3.579.2.593 1959 Unknown [id number] 2.16.84 0.1.703344.3.579.2.593 1959 Unknown [id number] 2.16.84 0.1.986843.3.579.2.593 1959 Unknown [id number] 2.16.84 0.1.025137.3.579.2.593 1959 Unknown [id number] 2.16.84 0.1.886566.3.579.2.593 1959 Unknown [id number] 2.16.84 0.1.687804.3.579.2.593 1959 Unknown [id number] 2.16. 840.1.560955.3.579.2.356 1959 Unknown [id number] 2.16. 840.1.247665.3.579.2.356 1959 Unknown [id number] 2.16. 840.1.855680.3.579.2.356 1959 Unknown [id number] 2.16. 840.1.587822.3.579.2.196 1959 Unknown [id number] 2.16. 840.1.925329.3.579.2.196 1959 Unknown [id number] 2.16. 840.1.462732.3.579.2.196 1959 Unknown [id number] 2.16. 840.1.245394.3.579.2.196 Unknown Unknown [id number] 2.16.8 40.1.742346.3.579.2.531 Social History Date Type Detail Facility Start: 03-02-2023 Dept. of D ermatology Start: 1960 End: 1960 Sex Assigned At Male [facility] Sex Assigned At Sex Assigned At [facility] [employer] Other Goals Date Patient Goal Desired Activity /State Progress note 10-31-2024 Note Date & Type Note Facility 10-31-2024 Note [place] [facility] Subjective Reece Hogue is a 64 [...] and other tests EKG: Echo: 12/15/2023 at [facility] 09/24/2022 MOJGAN 09/13/2018 Global left ventricular [...] x 3 whi (more content not included)... [facility] Progress note 11-10-2023 Note Date & Type Note Facility 11-10-2023 Note Patient here for 6 m o follow up chronic afib. No recent labs or imaging. Denies chest pain, SOB, palpitations, lightheadedness/syncope, and bleeding on Xarelto. BP at home when checked averages around 120/80. Review of Systems Musculoskeletal: Positive for myalgias. All other systems reviewed and are negative. [facility] Progress note 11-10-2023 Note Date & Type [...] history was recently cardioverted by me at [facility] to SR . He states no significantly [...] rhonchi Cardiovascular Rat (more content not included)... [facility] Evaluation note 10-01-2023 Note Date & Type [...] Pain in left leg (ICD-10 - M79.605) [facility] Other Evaluation note Note Date & Type [...] History melanoma excision Hospitalization History see above [facility] Other Reason for referral (narrative) Note Date [...] 2023 7:32am [facility] Course [id number] Admitted: 09/10/2018 Discharged: 09/14/2018 Date of : 1960 Physician: Primo Glaser MD DISCHARGE SUMMARYDISCHARGE ATTENDING PHYSICIAN: Primo Glaser [facility] PHYSICIAN: Dr. Jacobson at [phone].PRINCIPAL DIAGNOSIS: Atrial fibrillation/flutter, status post TEEconversion currently [...] and content) DATE CREATED AUTHOR 10/23/2018 [facility] DATE CREATED AUTHOR AUTHOR'S ORGANIZ ATION 02/27/2023 [facility] DATE CREATED AUTHOR AUTHOR'S ORGANIZ ATION 03/25/2023 [facility] DATE CREATED AUTHOR AUTHOR'S ORGANIZ ATION 10/09/2023 [facility] DATE CREATED AUTHOR AUTHOR'S ORGANIZ ATION 09/21/2024 [facility] DATE CREATED AUTHOR AUTHOR'S ORGANIZ ATION 11/03/2024 [facility] Care Teams (unrecognized sec tion and [...] BE BASED ON THE PRIMARY CLINICAL RECORDS. [facility] [employer] [facility]. provides no warranty or guarantee of the accuracy or completeness of information in this document.
[2025-01-02 10:23] VITALS: BP 167/98; BP 170/103; PULSE 68; PULSE 78; O2SAT 95; O2SAT 96
--- NOTE | 2025-01-02 10:29 | W.PM.PROCNOT ---
Date of procedure: 01/02/25 Pre-op diagnosis: Pain due to lumbar stenosis with neurogenic claudication Post-op diagnosis: same as pre-op Procedure: Procedure: Bilateral L4-5 transforaminal epidural steroid injection Medications: Bupivacaine 0.25% 2cc, lidocaine 2% 1cc, depomedrol 80mg The patient was seen and examined in the preoperative holding area.? Informed consent was obtained and placed on the chart.? Patient was brought to the medical procedure unit and placed in the prone position where a timeout was completed verifying the correct patient, procedure site, position, and planned special equipment using sterile aseptic technique.? Under direct fluoroscopic visualization a 25-gauge Quincke tipped spinal needle was advanced at level left L4-5 to the designated neural foramen where contrast dye was injected to show adequate spread.? There was no evidence of vascular or adverse uptake.? Epidural spread was appreciated.? The above-mentioned injectate was then placed in a 1.5 mL aliquot preceded by negative aspiration.? The needle was removed. The same procedure, at the same level, was completed on the opposite side. ? Patient was taken to the postprocedural recovery area and monitored for an appropriate length of time before found suitable for discharge in the accompaniment of a responsible adult. Anesthesia: Local Surgeon: Gold Choi Pathology: none sent Condition: stable Disposition: no change
[2025-01-02] MEDS: 0.9 % SODIUM CHLORIDE 10 ML SYRINGE - SALINE FLUSH INJ (10:30)
[2025-01-02] MEDS: LIDOCAINE HCL 2% 400 MG/20 ML MDV INJ (10:31)
[2025-01-02] MEDS: BUPIVACAINE HCL 0.25% PF 25 MG/10 ML VIAL INJ (10:31)
[2025-01-02] MEDS: METHYLPREDNISOLONE ACETATE 80 MG/ML VIAL INJ (10:31)
[2025-01-02] MEDS: IOHEXOL 240 MG/ML - 10 ML VIAL 24 MG INJ (10:31)
== END 2025-01-02 10:32 | disposition home or self-care (01) ==
LOC: SURGOUT 09:43
PROVIDERS: PCP Family Medicine; Visit Provider Anesthesiology
DX: M48.062 Spinal stenosis, lumbar region with neurogenic claudication (principal); M54.50 Low back pain, unspecified
CPT/HCPCS: 64483; J0665; J1010; Q9966

== ENCOUNTER 2025-01-12 08:07 | Outpatient (OUT) | payer OTHER, SELFPAY ==
--- OUTSIDE RECORDS SUMMARY | 2025-01-12 08:11 | XMS_ITS | CCD ---
Author Organization [facility] Care Team Providers Care Clin Nurse Spec Name Role Phone PHYSICIAN, DEFAULT Unavailable Unavailable PHYSICIAN, DEFAULT Unavailable Unavailable CHLOÉ, HANI Unavailable Unavailable YURY FUNEZ AM Unavailable Unavailable KACY JACOBSON Unavailable Unavailable RODOLFOPRIMO COLLAZO R Unavailable Unavailable [place] Unavailable Unavailable UNKNOWN, PROVIDER Unavailable Unavailable PHYSICIAN, DEFAULT Unavailable Unavailable PHYSICIAN, DEFAULT Unavailable Unavailable SABINA KACY Unavailable Unavailable RENU ZARCO Consulting Unavailable [...] Referring Unavailable MD Sher Whitfield Attending Provider [phone] MD Kacy Jacobson Primary Care Provider [phone] Sher Whitfield Unavailable Sher Whitfield Attending Unavailable Sher Whitfield Admitting Unavailable Kacy Jacobson Primary Care Unavailable RANDY CARRANZA Attending Unavailable FILIPE MCNAIR Attending Unavailable Giedraitis , Andjusto Boles Attending Unavailable Giedraitis , Andrius Ramana Attending Unavailable Gieditis , Andrius Ramana Attending Unavailable Giedraitis , Andrius Valvertoautsonia Attending Unavailable Gieditis , Andrius Vshaila Attending Unavailable Allergies Allergy Classification Reported Allergen(s) [...] Onset: 09-10-2022 Chronic Other aftercare (3 sources) assisted (current) use of anticoagulants; 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: [NURSING HOME (CURRENT) USE OF ANTICOAGULANTS] Onset: 09-10-2018 Episodic [...] Range Facility Office Visiton 10-31-2024 Follow-up visit [id number] JoaoSusanna D 1960 M Date Provider Department Center 10/31/2024 [id number] MANZANO BRITNEY Luis Family History Problem Relation Age of Onset Heart attack Maternal Grandfather Family Status - Relation Status Age at Maternal Grandfather Level of Service:10167 [place] OFFICE/OUTPATIENT ESTABLISHED MOD MDM 30 MIN Reason for Visit and Comments: Atrial Fibrillation [80] - Denies bleeding on Xarelto and palpitations. Hypertension [866772] - Had echo in Nov 2023 after last apt in Oct 2023. Also had EUGENE's in February 2024. No recent labs. Denies chest pain and SOB. Weight Gain [180] - +38# since last year. He retired in January 2024. He does walk 4 miles a day on his home treadmill. Normal [facility] Office Visiton 11-10-2023 Follow-up visit [id number] Susanna Hogue D 1960 M Date Provider Department Center 11/10/2023 RANDY JOHNSTON BRITNEY Luis Family History Problem Relation Age of Onset Heart attack Maternal Grandfather Family Status - Relation Status Age at Maternal Grandfather Level of Service:23238 [place] OFFICE/OUTPATIENT ESTABLISHED LOW MDM 20 MIN Normal [facility] Orders Onlyon 11-10-2023 Orders Only [id number] Susanna Hogue D 1960 M Date Provider Department Center 11/10/2023 CRISTINO AYALA BH BRITNEY [facility] Family History Problem Relation Age of Onset Heart attack Maternal Grandfather Family Status - Relation Status Age at Maternal Grandfather [facility] XR lumbar spine 6V w bending on 10-01-2023 XR lumbar spine 6V w bending [facility] Main [place] [address] [place], [place] [id number] XRay Report Signed Patient: Reece Hogue MR#: [id number] : 1960 Acct:[id number] Age/Sex: 63 / M ADM Date: 10/01/23 Loc: XD Room: Type: [facility] Attending Dr: Sher Whitfield MD Copies [...] Nila Christensen M.D.10/01/2023 12:35 PM Dictation Location: [place] [address] Transcribed By: [facility] 10/01/23 1235 Dictated By: Nila Christensen MD 10/01/23 1226 Signed By: 10/01/23 1235 [facility] Dermatopathologyon Dermatopathology Name: REECE HOGUE Pathologist: JAIMEE NEGRETE MD Date of Procedure: 02/24/2023 Date Received: 02/24/2023 Date Reported 02/25/2023 Submitting Physician: LUKE REINOSO MD, Location: [facility] [place] Copy To/Referring/Attending: MD KAUR PERDOMO FINAL DIAGNOSIS 4 SLIDES, [facility], #[id number] (BX: 02/03/2023) SKIN, LEFT NASAL SIDEWALL, SHAVE [...] REPORT A. 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 LENTIGO Specimens Submitted As: A: 4 SLIDES, [facility], #[id number] (BX: 02/03/2023) Gross Description: Received for consultation from [facility] are four slides labeled [id number] (BX: 02/03/2023) along with the corresponding pathology report. Slide/Block Description 4 SLIDES, [id number]. Keep Slides: N Slides Returned: N Personal Consult: N Normal [facility] Comment on above: Performed By: [...] Date: 2023-02-18 14:29 Normal [facility] INSULINon 01-23-2023 Insulin 7.9 uIU/mL Normal 2.6-24.9 [facility] Comment on above: Performed By: #### T 7, URIC, TSH, CMP, LIPID #### [facility] [address] [place] [address] Dr. Ayush Sorto CBC AUTO DIFFon 01-22-2023 BASO # 0.0 103/ul Normal 0.0-0.1 [facility] Comment on above: Performed By: #### C BC #### [facility] [address] [place] [address] Dr. Ayush Sorto Basophils/100 WBC (Bld) 0.6 % Normal 0.2-2.0 [facility] Comment on above: Performed By: #### C BC #### [facility] [address] [place] [address] Dr. Ayush Sorto EO # 0.2 103/ul Normal 0.0-0.7 [facility] Comment on above: Performed By: #### C BC #### [facility] [address] [place] [address] Dr. Ayush Sorto Eosinophils/100 WBC (Bld) 2.3 % Normal 0.9-7.0 [facility] Comment on above: Performed By: #### C BC #### [facility] [address] [place] [address] Dr. Ayush Sorto Erythrocyte distribution width (RBC) [Ratio] 13.2 % Normal 11.0-15.0 [facility] Comment on above: Performed By: #### C BC #### [facility] [address] [place] [address] Dr. Ayush Sorto Hematocrit (Bld) [Volume fraction] 48.6 % Normal 42.0-54.0 [facility] Comment on above: Performed By: #### C BC #### [facility] [address] [place] [address] Dr. Ayush Sorto Hemoglobin (Bld) [Mass/Vol] 16.4 g/dL Normal 14.0-18.0 [facility] Comment on above: Performed By: #### C BC #### [facility] [address] [place] [address] Dr. Ayush Sorto IG # 0.02 10e3/ul Normal 0.00-0.03 [facility] Comment on above: Performed By: #### C BC #### [facility] [address] [place] [address] Dr. Ayush Sorto IG % 0.3 % Normal 0.0-0.5 [facility] Comment on above: Performed By: #### C BC #### [facility] [address] [place] [address] Dr. Ayush Sorto LYMPH # 1.6 103/ul Normal 1.2-3.8 [facility] Comment on above: Performed By: #### C BC #### [facility] [address] [place] [address] Dr. Ayush Sorto Lymphocytes/100 WBC (Bld) 24.7 % Normal 20.5-60.0 [facility] Comment on above: Performed By: #### C BC #### [facility] [address] [place] [address] Dr. Ayush Sorto MANUAL DIFF REQ NO Normal [facility] Comment on above: Performed By: #### C BC #### [facility] [address] [place] [address] Dr. Ayush Sorto MCH (RBC) [Entitic mass] 30.0 pg Normal 25.9-34.0 [facility] Comment on above: Performed By: #### C BC #### [facility] [address] [place] [address] Dr. Ayush Sorto MCHC (RBC) [Mass/Vol] 33.7 g/dL Normal 29.9-35.2 [facility] Comment on above: Performed By: #### C BC #### [facility] [address] [id number] [address] Ayush Sorto MCV (RBC) [Entitic vol] 89.0 fL Normal 80.0-94.0 [facility] Comment on above: Performed By: #### C BC #### [facility] [address] [place] [address] [address] Ayush Sorto MONO # 0.7 103/ul Normal 0.3-0.8 [facility] Comment on above: Performed By: #### C BC #### [facility] [address] [place] [address] Dr. Ayush Sorto Monocytes/100 WBC (Bld) 10.1 % Normal 1.7-12.0 [facility] Comment on above: Performed By: #### C BC #### [facility] [address] [place] [address] Dr. Ayush Sorto NEUT # 4.1 103/ul Normal 1.4-6.5 [facility] Comment on above: Performed By: #### C BC #### [facility] [address] [place] [address] Dr. Ayush Sorto Neutrophils/100 WBC (Bld) 62.0 % Normal 43.0-75.0 [facility] Comment on above: Performed By: #### C BC #### [facility] [address] [place] [address] Dr. Ayush Sorto Platelet mean volume (Bld) [Entitic vol] 8.6 fL Critically low 9.5-13.5 [facility] Comment on above: Performed By: #### C BC #### [facility] [address] [place] [address] Dr. Ayush Sorto PLT 248 103/ul Normal 150-450 [facility] Comment on above: Performed By: #### C BC #### [facility] [address] [place] [address] Dr. Ayush Sorto RBC 5.46 106/ul Normal 4.70-6.10 [facility] Comment on above: Performed By: #### C BC #### [facility] [address] [place] [address] Dr. Ayush Sorto WBC 6.6 103/ul Normal 4.0-11.0 [facility] Comment on above: Performed By: #### C BC #### [facility] [address] [place] [address] Dr. Ayush Sorto FREE THYROXINE INDEX T7on FTI 3.31 Normal 1.30-4.50 [facility] Comment on above: Performed By: #### T 7, URIC, TSH, CMP, LIPID #### [facility] [address] [place] [address] Dr. Ayush Sorto T3U 36.0 % Normal 33.0-40.0 [facility] Comment on above: Performed By: #### T 7, URIC, TSH, CMP, LIPID #### [facility] [address] [place] [address] Dr. Ayush Sorto T4 [Mass/Vol] 9.20 ug/dL Normal 4.50-12.10 [facility] Comment on above: Performed By: #### T 7, URIC, TSH, CMP, LIPID #### [facility] [address] [place] [address] Dr. Ayush Sorto GLYCOHEMOGLOBIN A1Con 2022 ADA RECOMMENDATION SEE BELOW Normal [facility] Comment on above: Result Comment: ADA RECOMMENDED LIMIT 4.0 - 6.0 ADA THERAPEUTIC TARGET < 7.0 ACTION SUGGESTED > 7.0 Performed By: #### T 7, URIC, TSH, CMP, LIPID #### [facility] [address] [place] [address] Dr. Ayush Sorto Glucose [Mass/Vol] 117 mg/dL Normal [facility] Comment on above: Performed By: #### T 7, URIC, TSH, CMP, LIPID #### [facility] [address] [place] [address] Dr. Ayush Sorto HbA1c (Bld) [Mass fraction] 5.7 % Normal 4.5-6.2 [facility] Comment on above: Performed By: #### T 7, URIC, TSH, CMP, LIPID #### [facility] [address] [place] [address] Dr. Ayush Sorto LIPID PROFILEon 03-02-2023 CHOL-HDL RATIO NORM SEE BELOW Normal [facility] Comment on above: Result Comment: 3.3 - 4.4 LOW RISK 4.4 - 7.1 AVERAGE RISK 7.1 - 11.0 MODERATE RISK >11.0 HIGH RISK Performed By: #### T 7, URIC, TSH, CMP, LIPID #### [facility] [address] [address] [address] Ayush Sorto Cholesterol [Mass/Vol] 216 mg/dL Critically high <=200 [facility] Comment on above: Performed By: #### T 7, URIC, TSH, CMP, LIPID #### [facility] [address] [place] [address] [address] Ayush Sorto Cholesterol in HDL [Mass/Vol] 68 mg/dL Critically high 40-60 [facility] Comment on above: Performed By: #### T 7, URIC, TSH, CMP, LIPID #### [facility] [address] [place] [address] Dr. Ayush Sorto Cholesterol in LDL [Mass/Vol] 136.6 mg/dL Normal [facility] Comment on above: Performed By: #### T 7, URIC, TSH, CMP, LIPID #### [facility] [address] [place] [address] Dr. Ayush Sorto Cholesterol.total/C holesterol in HDL [Mass ratio] 3.2 {ratio} Normal [facility] Comment on above: Performed By: #### T 7, URIC, TSH, CMP, LIPID #### [facility] [address] [place] [address] Dr. Ayush Sorto HDL NORMAL > or = 60 mg/dl - LO W CARDIOVASCULAR RISK <40 mg/dl - HIGH CARDIOVASCULAR RISK Normal [facility] Comment on above: Performed By: #### T 7, URIC, TSH, CMP, LIPID #### [facility] [address] [place] [address] Dr. Ayush Sorto LDL CALC NORMAL SEE BELOW Normal [facility] Comment on above: Result Comment: <100 mg/dl OPTIMAL 100 - 129 mg/dl NEAR OR ABOVE OPTIMAL 130 - 159 mg/dl BORDERLINE HIGH 160 - 189 mg/dl HIGH >190 mg/dl VERY HIGH Performed By: #### T 7, URIC, TSH, CMP, LIPID #### [facility] [address] [address] [address] Ayush Sorto Triglyceride [Mass/Vol] 57 mg/dL Normal <=150 [facility] Comment on above: Performed By: #### T 7, URIC, TSH, CMP, LIPID #### [facility] [address] [address] [address] Ayush Sorto VLDL CALC 11.4 mg/dL Normal [facility] Comment on above: Performed By: #### T 7, URIC, TSH, CMP, LIPID #### [facility] [address] [address] [address] Ayush Sorto PROF 14(COMP METB)on 023 Albumin [Mass/Vol] 4.0 g/dL Normal 3.4-5.0 [facility] Comment on above: Performed By: #### T 7, URIC, TSH, CMP, LIPID #### [facility] [address] [place] [address] Dr. Ayush Sorto Albumin/Globulin [Mass ratio] 1.2 {ratio} Normal [facility] Comment on above: Performed By: #### T 7, URIC, TSH, CMP, LIPID #### [facility] [address] [place] [address] Dr. Ayush Sorto ALP [Catalytic activity/Vol] 85 U/L Normal 46-116 [facility] Comment on above: Performed By: #### T 7, URIC, TSH, CMP, LIPID #### [facility] [address] [place] [address] Dr. Ayush Sorto ALT [Catalytic activity/Vol] 28 U/L Normal 16-63 [facility] Comment on above: Performed By: #### T 7, URIC, TSH, CMP, LIPID #### [facility] [address] [place] [address] Dr. Ayush Sorto Anion gap [Moles/Vol] 12.9 mmol/L Normal [facility] Comment on above: Performed By: #### T 7, URIC, TSH, CMP, LIPID #### [facility] [address] [place] [address] Dr. Ayush Sorto AST [Catalytic activity/Vol] 23 U/L Normal 15-37 [facility] Comment on above: Performed By: #### T 7, URIC, TSH, CMP, LIPID #### [facility] [address] [place] [address] Dr. Ayush Sorto Bilirubin [Mass/Vol] 1.1 mg/dL Critically high 0.2-1.0 [facility] Comment on above: Performed By: #### T 7, URIC, TSH, CMP, LIPID #### [facility] [address] [place] [address] Dr. Ayush Sorto Calcium [Mass/Vol] 9.2 mg/dL Normal 8.5-10.1 [facility] Comment on above: Performed By: #### T 7, URIC, TSH, CMP, LIPID #### [facility] [address] [place] [address] Dr. Ayush Sorto Chloride [Moles/Vol] 103 mmol/L Normal 98-107 [facility] Comment on above: Performed By: #### T 7, URIC, TSH, CMP, LIPID #### [facility] [address] [place] [address] Dr. Ayush Sorto CO2 [Moles/Vol] 27.9 mmol/L Normal 21.0-32.0 [facility] Comment on above: Performed By: #### T 7, URIC, TSH, CMP, LIPID #### [facility] [address] [place] [address] Dr. Ayush Sorto Creatinine [Mass/Vol] 0.88 mg/dL Normal 0.70-1.30 [facility] Comment on above: Performed By: #### T 7, URIC, TSH, CMP, LIPID #### [facility] [address] [place] [address] Dr. Ayush Sorto EGFR-AF GUYANESE >60 Normal >=60 [facility] Comment on above: Performed By: #### T 7, URIC, TSH, CMP, LIPID #### [facility] [address] [place] [address] Dr. Ayush Sorto EGFR-NON AF GUYANESE >60 Normal >=60 [facility] Comment on above: Performed By: #### T 7, URIC, TSH, CMP, LIPID #### [facility] [address] [address] [address] Ayush Sorto Globulin (S) [Mass/Vol] 3.4 g/dL Normal [facility] Comment on above: Performed By: #### T 7, URIC, TSH, CMP, LIPID #### [facility] [address] [address] [address] Ayush Sorto Glucose [Mass/Vol] 93 mg/dL Normal 74-106 [facility] Comment on above: Performed By: #### T 7, URIC, TSH, CMP, LIPID #### [facility] [address] [place] [address] Dr. Ayush Sorto Potassium [Moles/Vol] 4.8 mmol/L Normal 3.5-5.1 [facility] Comment on above: Performed By: #### T 7, URIC, TSH, CMP, LIPID #### [facility] [address] [place] [address] Dr. Ayush Sorto Protein [Mass/Vol] 7.4 g/dL Normal 6.4-8.2 [facility] Comment on above: Performed By: #### T 7, URIC, TSH, CMP, LIPID #### [facility] [address] [place] [address] Dr. Ayush Sorto Sodium [Moles/Vol] 139 mmol/L Normal 136-145 [facility] Comment on above: Performed By: #### T 7, URIC, TSH, CMP, LIPID #### [facility] [address] [place] [address] Dr. Ayush Sorto Urea nitrogen [Mass/Vol] 23.0 mg/dL Critically high 7.0-18.0 [facility] Comment on above: Performed By: #### T 7, URIC, TSH, CMP, LIPID #### [facility] [address] [place] [address] Dr. Ayush Sorto Urea nitrogen/Creatinine [Mass ratio] 26.1 mg/mg Normal [facility] Comment on above: Performed By: #### T 7, URIC, TSH, CMP, LIPID #### [facility] [address] [place] [address] Dr. Ayush Sorto TSHon 01-22-2023 TSH 1.145 uIU/mL Normal 0.358-3.74 0 [facility] Comment on above: Performed By: #### T 7, URIC, TSH, CMP, LIPID #### [facility] [address] [place] [address] Dr. Ayush Sorto URIC ACID SERUMon 01-22-2023 Urate [Mass/Vol] 6.8 mg/dL Normal 3.5-7.2 [facility] Comment on above: Performed By: #### T 7, URIC, TSH, CMP, LIPID #### [facility] [address] [place] [address] Dr. Ayush Sorto VITAMIN D 25 OHon 01-22-2023 VIT D 25-OH 72.7 ng/mL Normal [facility] Comment on above: Performed By: #### V PLACIDO, PSASC #### [facility] [address] [place] [address] Dr. Ayush Sorto VIT D RANGES SEE BELOW Normal [facility] Comment on above: Result Comment: <20 ng/mL Vit D deficient 20 - <30 ng/mL Vit D insufficient 30 - 100 ng/mL Vit D sufficient >100 ng/mL Potential Toxicity Performed By: #### V PLACIDO, PSASC #### [facility] [address] [place] [address] Dr. Ayush Sorto PROF CHEM 8 (BAS METB)on Anion gap [Moles/Vol] 10.1 mmol/L Normal [facility] Comment on above: Performed By: #### T 7, URIC, TSH, CMP, LIPID #### [facility] [address] [place] [address] Dr. Ayush Sorto Calcium [Mass/Vol] 9.3 mg/dL Normal 8.5-10.1 [facility] Comment on above: Performed By: #### T 7, URIC, TSH, CMP, LIPID #### [facility] [address] [address] [address] Ayush Sorto Chloride [Moles/Vol] 102 mmol/L Normal 98-107 [facility] Comment on above: Performed By: #### T 7, URIC, TSH, CMP, LIPID #### [facility] [address] [address] [address] Ayush Sorto CO2 [Moles/Vol] 31.8 mmol/L Normal 21.0-32.0 [facility] Comment on above: Performed By: #### T 7, URIC, TSH, CMP, LIPID #### [facility] [address] [address] [address] yAush Sorto Creatinine [Mass/Vol] 1.03 mg/dL Normal 0.70-1.30 [facility] Comment on above: Performed By: #### T 7, URIC, TSH, CMP, LIPID #### [facility] [address] [place] [address] Dr. Ayush Sorto EGFR-AF GUYANESE >60 Normal >=60 [facility] Comment on above: Performed By: #### T 7, URIC, TSH, CMP, LIPID #### [facility] [address] [address] [address] Ayush Sorto EGFR-NON AF GUYANESE >60 Normal >=60 [facility] Comment on above: Performed By: #### T 7, URIC, TSH, CMP, LIPID #### [facility] [address] [address] [address] Ayush Sorto Glucose [Mass/Vol] 121 mg/dL Critically high 74-106 [facility] Comment on above: Performed By: #### T 7, URIC, TSH, CMP, LIPID #### [facility] [address] [address] [address] Ayush Sorto Potassium [Moles/Vol] 4.9 mmol/L Normal 3.5-5.1 [facility] Comment on above: Performed By: #### T 7, URIC, TSH, CMP, LIPID #### [facility] [address] [address] [address] Ayush Sorto Sodium [Moles/Vol] 139 mmol/L Normal 136-145 [facility] Comment on above: Performed By: #### T 7, URIC, TSH, CMP, LIPID #### [facility] [address] [place], [place] [address] Dr. Ayush Sorto Urea nitrogen [Mass/Vol] 15.0 mg/dL Normal 7.0-18.0 [facility] Comment on above: Performed By: #### T 7, URIC, TSH, CMP, LIPID #### [facility] [address] [id number] [address] Ayush Sorto Urea nitrogen/Creatinine [Mass ratio] 14.6 mg/mg Normal [facility] Comment on above: Performed By: #### T 7, URIC, TSH, CMP, LIPID #### [facility] [id number] [address] Ayush Sorto ECHOCARDIO M/2D COMPLETEon 1 11-24-2021 ECHOCARDIO M/2D COMPLETE Patient: REECE HOGUE Exam Date: 09/24/2022 : 1960 Gender:M Ordering : RENU ZARCO [facility] Admission #: [id number] Family : DR KACY JACOBSON . Order #: [id number] CLICK HERE TO VIEW EXAM ECHOCARDIOGRAM REPORT [...] 09/24/2022 at 16:24 Normal [facility] CBC AUTO DIFFon 09-10-2022 BASO # 0.1 103/ul Normal 0.0-0.1 [facility] Comment on above: Performed By: #### C BC #### [facility] [address] [place] [address] Dr. Ayush Sorto Basophils/100 WBC (Bld) 0.8 % Normal 0.2-2.0 [facility] Comment on above: Performed By: #### C BC #### [facility] [address] [place] [address] Dr. Ayush Sorto EO # 0.1 103/ul Normal 0.0-0.7 [facility] Comment on above: Performed By: #### C BC #### [facility] [address] [address] [address] Ayush Sorto Eosinophils/100 WBC (Bld) 1.3 % Normal 0.9-7.0 [facility] Comment on above: Performed By: #### C BC #### [facility] [address] [place] [address] Dr. Ayush Sorto Erythrocyte distribution width (RBC) [Ratio] 12.8 % Normal 11.0-15.0 [facility] Comment on above: Performed By: #### C BC #### [facility] [address] [place] [address] Dr. Ayush Sorto Hematocrit (Bld) [Volume fraction] 48.5 % Normal 42.0-54.0 [facility] Comment on above: Performed By: #### C BC #### [facility] [address] [place] [address] Dr. Ayush Sorto Hemoglobin (Bld) [Mass/Vol] 16.2 g/dL Normal 14.0-18.0 [facility] Comment on above: Performed By: #### C BC #### [facility] [address] [place] [address] Dr. Ayush Sorto IG # 0.01 10e3/ul Normal 0.00-0.03 [facility] Comment on above: Performed By: #### C BC #### [facility] [address] [place] [address] Dr. Ayush Sorto IG % 0.2 % Normal 0.0-0.5 [facility] Comment on above: Performed By: #### C BC #### [facility] [address] [place] [address] Dr. Ayush Sorto LYMPH # 1.0 103/ul Critically low 1.2-3.8 [facility] Comment on above: Performed By: #### C BC #### [facility] [address] [place] [address] Dr. Ayush Sorto Lymphocytes/100 WBC (Bld) 15.6 % Critically low 20.5-60.0 [facility] Comment on above: Performed By: #### C BC #### [facility] [address] [place] [address] Dr. Ayush Sorto MANUAL DIFF REQ NO Normal [facility] Comment on above: Performed By: #### C BC #### [facility] [address] [place] [address] Dr. Ayush Sorto MCH (RBC) [Entitic mass] 30.5 pg Normal 25.9-34.0 [facility] Comment on above: Performed By: #### C BC #### [facility] [address] [place] [address] Dr. Ayush Sorto MCHC (RBC) [Mass/Vol] 33.4 g/dL Normal 29.9-35.2 [facility] Comment on above: Performed By: #### C BC #### [facility] [address] [place] [address] Dr. Ayush Sorto MCV (RBC) [Entitic vol] 91.3 fL Normal 80.0-94.0 [facility] Comment on above: Performed By: #### C BC #### [facility] [address] [place] [address] Dr. Ayush Sorto MONO # 0.6 103/ul Normal 0.3-0.8 [facility] Comment on above: Performed By: #### C BC #### [facility] [address] [place] [address] Dr. Ayush Sorto Monocytes/100 WBC (Bld) 9.2 % Normal 1.7-12.0 [facility] Comment on above: Performed By: #### C BC #### [facility] [address] [place] [address] Dr. Ayush Sorto NEUT # 4.5 103/ul Normal 1.4-6.5 [facility] Comment on above: Performed By: #### C BC #### [facility] [address] [place] [address] Dr. Ayush Sorto Neutrophils/100 WBC (Bld) 72.9 % Normal 43.0-75.0 [facility] Comment on above: Performed By: #### C BC #### [facility] [address] [place] [address] Dr. Ayush Sorto Platelet mean volume (Bld) [Entitic vol] 8.9 fL Critically low 9.5-13.5 [facility] Comment on above: Performed By: #### C BC #### [facility] [address] [place] [address] Dr. Ayush Sorto PLT 226 103/ul Normal 150-450 [facility] Comment on above: Performed By: #### C BC #### [facility] [address] [place] [address] Dr. Ayush Sorto RBC 5.31 106/ul Normal 4.70-6.10 [facility] Comment on above: Performed By: #### C BC #### [facility] [address] [address] [address] Ayush Sorto WBC 6.2 103/ul Normal 4.0-11.0 [facility] Comment on above: Performed By: #### C BC #### [facility] [address] [address] [address] Ayush Sorto LIPID PROFILEon 09-10-2022 CHOL-HDL RATIO NORM SEE BELOW Normal [facility] Comment on above: Result Comment: 3.3 - 4.4 LOW RISK 4.4 - 7.1 AVERAGE RISK 7.1 - 11.0 MODERATE RISK >11.0 HIGH RISK Performed By: #### T 7, URIC, TSH, CMP, LIPID #### [facility] [address] [address] [address] Ayush Sorto Cholesterol [Mass/Vol] 206 mg/dL Critically high <=200 [facility] Comment on above: Performed By: #### T 7, URIC, TSH, CMP, LIPID #### [facility] [address] [address] [address] Ayush Sorto Cholesterol in HDL [Mass/Vol] 73 mg/dL Critically high 40-60 [facility] Comment on above: Performed By: #### T 7, URIC, TSH, CMP, LIPID #### [facility] [address] [address] [address] Ayush Sorto Cholesterol in LDL [Mass/Vol] 123.2 mg/dL Normal [facility] Comment on above: Performed By: #### T 7, URIC, TSH, CMP, LIPID #### [facility] [address] [address] [address] Ayush Sorto Cholesterol.total/C holesterol in HDL [Mass ratio] 2.8 {ratio} Normal [facility] Comment on above: Performed By: #### T 7, URIC, TSH, CMP, LIPID #### [facility] [address] [address] [address] Ayush Sorto HDL NORMAL > or = 60 mg/dl - LO W CARDIOVASCULAR RISK <40 mg/dl - HIGH CARDIOVASCULAR RISK Normal [facility] Comment on above: Performed By: #### T 7, URIC, TSH, CMP, LIPID #### [facility] [address] [place] [address] Dr. Ayush Sorto LDL CALC NORMAL SEE BELOW Normal [facility] Comment on above: Result Comment: <100 mg/dl OPTIMAL 100 - 129 mg/dl NEAR OR ABOVE OPTIMAL 130 - 159 mg/dl BORDERLINE HIGH 160 - 189 mg/dl HIGH >190 mg/dl VERY HIGH Performed By: #### T 7, URIC, TSH, CMP, LIPID #### [facility] [address] [address] [address] Ayush Sorto Triglyceride [Mass/Vol] 49 mg/dL Normal <=150 [facility] Comment on above: Performed By: #### T 7, URIC, TSH, CMP, LIPID #### [facility] [address] [place] [address] Dr. Ayush Sorto VLDL CALC 9.8 mg/dL Normal [facility] Comment on above: Performed By: #### T 7, URIC, TSH, CMP, LIPID #### [facility] [address] [place] [address] Dr. Ayush Sorto PROF 14(COMP METB)on 022 Albumin [Mass/Vol] 4.0 g/dL Normal 3.4-5.0 [facility] Comment on above: Performed By: #### T 7, URIC, TSH, CMP, LIPID #### [facility] [address] [place] [address] Dr. Ayush Sorto Albumin/Globulin [Mass ratio] 1.2 {ratio} Normal [facility] Comment on above: Performed By: #### T 7, URIC, TSH, CMP, LIPID #### [facility] [address] [place] [address] Dr. Ayush Sorto ALP [Catalytic activity/Vol] 83 U/L Normal 46-116 [facility] Comment on above: Performed By: #### T 7, URIC, TSH, CMP, LIPID #### [facility] [address] [place] [address] Dr. Ayush Sorto ALT [Catalytic activity/Vol] 35 U/L Normal 16-63 [facility] Comment on above: Performed By: #### T 7, URIC, TSH, CMP, LIPID #### [facility] [address] [place] [address] Dr. Ayush Sorto Anion gap [Moles/Vol] 9.0 mmol/L Normal [facility] Comment on above: Performed By: #### T 7, URIC, TSH, CMP, LIPID #### [facility] [address] [address] [address] Ayush Sorto AST [Catalytic activity/Vol] 26 U/L Normal 15-37 [facility] Comment on above: Performed By: #### T 7, URIC, TSH, CMP, LIPID #### [facility] [address] [place] [address] Dr. Ayush Sorto Bilirubin [Mass/Vol] 1.0 mg/dL Normal 0.2-1.0 [facility] Comment on above: Performed By: #### T 7, URIC, TSH, CMP, LIPID #### [facility] [address] [place] [address] Dr. Ayush Sorto Calcium [Mass/Vol] 9.5 mg/dL Normal 8.5-10.1 [facility] Comment on above: Performed By: #### T 7, URIC, TSH, CMP, LIPID #### [facility] [address] [place] [address] Dr. Ayush Sorto Chloride [Moles/Vol] 105 mmol/L Normal 98-107 [facility] Comment on above: Performed By: #### T 7, URIC, TSH, CMP, LIPID #### [facility] [address] [place] [address] Dr. Ayush Sorto CO2 [Moles/Vol] 27.7 mmol/L Normal 21.0-32.0 [facility] Comment on above: Performed By: #### T 7, URIC, TSH, CMP, LIPID #### [facility] [address] [place] [address] Dr. Ayush Sorto Creatinine [Mass/Vol] 0.90 mg/dL Normal 0.70-1.30 [facility] Comment on above: Performed By: #### T 7, URIC, TSH, CMP, LIPID #### [facility] [address] [address] [address] Ayush Sorto EGFR-AF GUYANESE >60 Normal >=60 [facility] Comment on above: Performed By: #### T 7, URIC, TSH, CMP, LIPID #### [facility] [address] [address] [address] Ayush Sorto EGFR-NON AF GUYANESE >60 Normal >=60 [facility] Comment on above: Performed By: #### T 7, URIC, TSH, CMP, LIPID #### [facility] [address] [address] [address] Ayush Sorto Globulin (S) [Mass/Vol] 3.3 g/dL Normal [facility] Comment on above: Performed By: #### T 7, URIC, TSH, CMP, LIPID #### [facility] [address] [address] [address] Ayush Sorto Glucose [Mass/Vol] 105 mg/dL Normal 74-106 [facility] Comment on above: Performed By: #### T 7, URIC, TSH, CMP, LIPID #### [facility] [address] [address] [address] Ayush Sorto Potassium [Moles/Vol] 4.7 mmol/L Normal 3.5-5.1 [facility] Comment on above: Performed By: #### T 7, URIC, TSH, CMP, LIPID #### [facility] [address] [address] [address] Ayush Sorto Protein [Mass/Vol] 7.3 g/dL Normal 6.4-8.2 [facility] Comment on above: Performed By: #### T 7, URIC, TSH, CMP, LIPID #### [facility] [address] [address] [address] Ayush Sorto Sodium [Moles/Vol] 137 mmol/L Normal 136-145 [facility] Comment on above: Performed By: #### T 7, URIC, TSH, CMP, LIPID #### [facility] [address] [place] [address] Dr. Ayush Sorto Urea nitrogen [Mass/Vol] 19.0 mg/dL Critically high 7.0-18.0 [facility] Comment on above: Performed By: #### T 7, URIC, TSH, CMP, LIPID #### [facility] [address] [address] [address] Ayush Sorto Urea nitrogen/Creatinine [Mass ratio] 21.1 mg/mg Normal [facility] Comment on above: Performed By: #### T 7, URIC, TSH, CMP, LIPID #### [facility] [address] [address] [address] Ayush Sorto BASIC METABOLIC PANELon 10-2 Calcium mass conc 9.3 mg/dL Normal 8.6-10.3 [facility] Comment on above: Order Comment: No: D o not add to previous draw Performed By: #### 0 0121, 27260, 22284 ####[facility] [place] [address], [facility] Chloride molar conc 102 mmol/L Normal 98-107 [facility] Comment on above: Order Comment: No: D o not add to previous draw Performed By: #### 0 0121, 12799, 10643 ####[facility] [place] [address], [place] CO2 molar conc 27 mmol/L Normal 21-31 [facility] Comment on above: Order Comment: No: D o not add to previous draw Performed By: #### 0 0121, 81638, 94836 ####[facility] [place] [address], [place] Creatinine mass conc 0.73 mg/dL Normal 0.70-1.30 [facility] Comment on above: Order Comment: No: D o not add to previous draw Performed By: #### 0 0121, 65944, 19435 ####[facility] [place] [address], [place] GFR/1.73 sq M predicted among blacks MDRD vol rate/area (S/P/Bld) mL/min/{1.73_m2} Normal >60 [facility] Comment on above: Order Comment: No: D o not add to previous draw Performed By: #### 0 0121, 68395, 00095 ####[facility] [place] [address], [facility] GFR/1.73 sq M predicted among non-blacks MDRD vol rate/area (S/P/Bld) mL/min/{1.73_m2} Normal >60 [facility] Comment on above: Order Comment: No: D o not add to previous draw Performed By: #### 0 0121, 15944, 46949 ####[facility] [place] [address], [facility] Glucose mass conc 109 mg/dL High 70-100 [facility] Comment on above: Order Comment: No: D o not add to previous draw Performed By: #### 0 0121, 10048, 60238 ####[facility] [place] [address], [facility] Potassium molar conc 4.1 mmol/L Normal 3.5-5.1 [facility] Comment on above: Order Comment: No: D o not add to previous draw Performed By: #### 0 0121, 62279, 92087 ####[facility] [place] [address], [facility] Sodium molar conc 136 mmol/L Normal 136-145 [facility] Comment on above: Order Comment: No: D o not add to previous draw Performed By: #### 0 0121, 69252, 91088 ####[facility] [address], [facility] Urea nitrogen mass conc 10 mg/dL Normal 7-25 [facility] Comment on above: Order Comment: No: D o not add to previous draw Performed By: #### 0 0121, 63512, 93876 ####[facility] [facility] CBC COMPLETE BLOOD COUNTon Erythrocyte distribution width Auto Ratio (RBC) 12.8 % Normal 11.5-15.0 [facility] Comment on above: Order Comment: No: D o not add to previous draw Performed By: #### 0 0121, 43237, 77511 ####[facility] Hematocrit Auto Volume Fraction (Bld) 45.7 % Normal 39.0-50.0 [facility] Comment on above: Order Comment: No: D o not add to previous draw Performed By: #### 0 0121, 17192, 61616 ####[facility] [facility] Hemoglobin mass conc (Bld) 15.6 g/dL Normal 13.0-17.0 [facility] Comment on above: Order Comment: No: D o not add to previous draw Performed By: #### 0 0121, 27408, 42491 ####[facility] [facility] MCH Auto Entitic mass (RBC) 30.4 pg Normal 27.0-33.0 [facility] Comment on above: Order Comment: No: D o not add to previous draw Performed By: #### 0 0121, 85061, 66486 ####[facility] MCHC Auto mass conc (RBC) 34.1 g/dL Normal 32.0-35.0 [facility] Comment on above: Order Comment: No: D o not add to previous draw Performed By: #### 0 0121, 50261, 50938 ####[facility] [place] [address], [facility] MCV Auto Entitic volume (RBC) 89.1 fL Normal 82.0-98.0 [facility] Comment on above: Order Comment: No: D o not add to previous draw Performed By: #### 0 0121, 18440, 14137 ####[facility] Nucleated RBC/100 WBC Ratio (Bld) 0 % Normal 0-0 [facility] Comment on above: Order Comment: No: D o not add to previous draw Performed By: #### 0 0121, 95643, 55752 ####[facility] [address], [facility] PLAT CNT 218 10*3/uL Normal 150-400 [facility] Comment on above: Order Comment: No: D o not add to previous draw Performed By: #### 0 0121, 68736, 06135 ####[facility] [place] [address], [facility] RBC Auto #/vol (Bld) 5.13 10*6/uL Normal 4.20-5.70 [facility] Comment on above: Order Comment: No: D o not add to previous draw Performed By: #### 0 0121, 34053, 93406 ####[facility] [place] [address], [facility] WBC Auto #/vol (Bld) 6.96 10*3/uL Normal 4.00-10.60 [facility] Comment on above: Order Comment: No: D o not add to previous draw Performed By: #### 0 0121, 18322, 95570 ####[facility] [facility] Cardiovascular Lab Reporton 09-14-2018 Cardiovascular Lab Report [facility] #: [id number] Physician: Lizette Montano M.D.Medicine Service Date: 09/13/2018Division of Birthdate: 1960Cardiology Room #: [id number] CardiovascularServicesUniversi [id number] [facility]ie.[place] [address]Phone Fax Cardiovascular Laboratory ReportPROCEDURE: Transesophageal echocardiogram and cardioversion.INDICATION: Atrial fibrillation.FELLOW: Tanya Botello M.D.PROCEDURE IN DETAIL: An informed consent was obtained from the patientafter explaining indications, risks, and benefits, and alternatives. Thepatient understood and agreed and signed the consent form. The patient wasbrought to the labor relations officer and MOJGAN was performed under conscious sedation. Thepatient obtained a total of 10 mg of Versed and 100 mcg of fentanyl duringthe procedure. The transesophageal echocardiogram did not show anythrombus in the left atrial appendage. Full MOJGAN report is dictatedelsewhere. After the transesophageal echocardiogram, synchronized biphasiccardioversion was done with 300 joules of energy. The patient successfullyconverted to sinus rhythm as evidenced by the EKG done postprocedure. Nocomplications throughout the procedure.Electronically Signed by:Lizette Haines M.D. 09/19/2018 08:34 P Lizette Haines M.D. I was present for the entire procedure. Date Dict: 09/13/2018/11:49 A/Al Brownlee Trans: 09/14/2018 06:55 A/[id number]:[id number]: Kacy Jacobson M.D. [address] [facility] [place] [address] Yury Funez M.D. [address] [place] [address] Normal [facility] APTTon 09-13-2018 aPTT Coag time (Bld) 86.4 s Critically high 25.0-35.0 [facility] Comment on above: Order Comment: No: [...] PRESENCEOF HEPARIN. Performed By: #### 0 0121, 51350, 00712 ####[facility] [facility].[address] aPTT Coag time (Bld) 41.4 s High 25.0-35.0 [facility] Comment on above: Result Comment: ALL RESULTS [...] THIS PURPOSE. Performed By: #### 0 0121, 88713, 47636 ####[facility] [facility].[address] UFH HEPARIN ASSAYon 09-13-20 18 UNFRACTIONATED HEPARIN 0.64 IU/mL Normal 0.30-0.70 [facility] Comment on above: Result Comment: Poneto roxaban and Apixaban will interfere with the anti Xa assay used tomonitor UFH and LMWH. Performed By: #### 0 0121, 49568, 98550 ####[facility] [facility].[address] UNFRACTIONATED HEPARIN 0.25 IU/mL Low 0.30-0.70 [facility] Comment on above: Result Comment: Lisa roxaban and Apixaban will interfere with the anti Xa assay used tomonitor UFH and LMWH. Performed By: #### 0 0121, 57081, 27182 ####[facility] [facility].[address] BASIC METABOLIC PANELon 10-2 Calcium mass conc 8.6 mg/dL Normal 8.6-10.3 [facility] Comment on above: Order Comment: No: D o not add to previous draw Performed By: #### 0 0121, 50862, 87508 ####[facility] [address], [facility] Chloride molar conc 106 mmol/L Normal 98-107 [facility] Comment on above: Order Comment: No: D o not add to previous draw Performed By: #### 0 0121, 89587, 38183 ####[facility] [address], [place] CO2 molar conc 25 mmol/L Normal 21-31 [facility] Comment on above: Order Comment: No: D o not add to previous draw Performed By: #### 0 0121, 09348, 24437 ####[facility] [address], [facility] Creatinine mass conc 0.64 mg/dL Low 0.70-1.30 [facility] Comment on above: Order Comment: No: D o not add to previous draw Performed By: #### 0 0121, 92927, 54992 ####[facility] [address], [place] GFR/1.73 sq M predicted among blacks MDRD vol rate/area (S/P/Bld) mL/min/{1.73_m2} Normal >60 [facility] Comment on above: Order Comment: No: D o not add to previous draw Performed By: #### 0 0121, 34029, 89662 ####[facility] [address], [place] GFR/1.73 sq M predicted among non-blacks MDRD vol rate/area (S/P/Bld) mL/min/{1.73_m2} Normal >60 [facility] Comment on above: Order Comment: No: D o not add to previous draw Performed By: #### 0 0121, 54768, 13591 ####[facility] [address], [facility] Glucose mass conc 100 mg/dL Normal 70-100 [facility] Comment on above: Order Comment: No: D o not add to previous draw Performed By: #### 0 0121, 76214, 23519 ####[facility] [place] [address], [facility] Potassium molar conc 4.0 mmol/L Normal 3.5-5.1 [facility] Comment on above: Order Comment: No: D o not add to previous draw Performed By: #### 0 0121, 48877, 92786 ####[facility] Sodium molar conc 137 mmol/L Normal 136-145 [facility] Comment on above: Order Comment: No: D o not add to previous draw Performed By: #### 0 0121, 71013, 76501 ####[facility] [facility].[address] Urea nitrogen mass conc 14 mg/dL Normal 7-25 [facility] Comment on above: Order Comment: No: D o not add to previous draw Performed By: #### 0 0121, 86261, 68155 ####[facility] [facility] [place] [address], [facility] CBC W/DIFFon 09-12-2018 ABS BASOPHILS 0.0 10*3/uL Normal 0.0-0.2 [facility] Comment on above: Order Comment: No: D o not add to previous draw Performed By: #### 0 0121, 68507, 86836 ####[facility] [place] [address], [facility] ABS IMM GRANS 0.0 10*3/uL Normal 0.0-0.2 [facility] Comment on above: Order Comment: No: D o not add to previous draw Performed By: #### 0 0121, 13319, 73619 ####[facility] [facility] [place] [address], [facility] ABS NEUTROPHILS 3.1 10*3/uL Normal 1.6-7.6 [facility] Comment on above: Order Comment: No: D o not add to previous draw Performed By: #### 0 0121, 14203, 08385 ####[facility] [facility] [place] [address], [facility] Basophils Auto #/vol (Bld) 0.7 % Normal 0.0-1.0 [facility] Comment on above: Order Comment: No: D o not add to previous draw Performed By: #### 0 0121, 40723, 23793 ####[facility] [facility] [place] [address], [facility] Eosinophils Auto #/vol (Bld) 0.2 10*3/uL Normal 0.0-0.5 [facility] Comment on above: Order Comment: No: D o not add to previous draw Performed By: #### 0 0121, 43274, 84855 ####[facility] [facility].[address] Eosinophils/100 WBC Auto (Bld) 3.6 % Normal 0.0-6.0 [facility] Comment on above: Order Comment: No: D o not add to previous draw Performed By: #### 0 0121, 37531, 91917 ####[facility] [facility].[address] Erythrocyte distribution width Auto Ratio (RBC) 12.7 % Normal 11.5-15.0 [facility] Comment on above: Order Comment: No: D o not add to previous draw Performed By: #### 0 0121, 23202, 02460 ####[facility] [facility].[address] [address] Hematocrit Auto Volume Fraction (Bld) 45.5 % Normal 39.0-50.0 [facility] Comment on above: Order Comment: No: D o not add to previous draw Performed By: #### 0 0121, 37441, 05139 ####[facility] [facility].[address] Hemoglobin mass conc (Bld) 15.2 g/dL Normal 13.0-17.0 [facility] Comment on above: Order Comment: No: D o not add to previous draw Performed By: #### 0 0121, , 94040 ####[facility] IMMATURE GRANS 0.4 % Normal 0.0-1.0 [facility] Comment on above: Order Comment: No: D o not add to previous draw Performed By: #### 0 0121, , 52786 ####[facility] Lymphocytes Auto #/vol (Bld) 1.5 10*3/uL Normal 1.2-4.0 [facility] Comment on above: Order Comment: No: D o not add to previous draw Performed By: #### 0 0121, , 57883 ####[facility] [facility].[address] Lymphocytes/100 WBC Auto (Bld) 27.8 % Normal 20.0-45.0 [facility] Comment on above: Order Comment: No: D o not add to previous draw Performed By: #### 0 0121, , 76552 ####[facility] [facility] [place] [address], [facility] MCH Auto Entitic mass (RBC) 30.0 pg Normal 27.0-33.0 [facility] Comment on above: Order Comment: No: D o not add to previous draw Performed By: #### 0 0121, 27617, 38916 ####[facility] MCHC Auto mass conc (RBC) 33.4 g/dL Normal 32.0-35.0 [facility] Comment on above: Order Comment: No: D o not add to previous draw Performed By: #### 0 0121, 77132, 87989 ####[facility] MCV Auto Entitic volume (RBC) 89.9 fL Normal 82.0-98.0 [facility] Comment on above: Order Comment: No: D o not add to previous draw Performed By: #### 0 0121, 13123, 79138 ####[facility] Monocytes Auto #/vol (Bld) 0.6 10*3/uL Normal 0.1-1.0 [facility] Comment on above: Order Comment: No: D o not add to previous draw Performed By: #### 0 0121, , 92454 ####[facility] [facility].[address] MONOS 11.4 % Normal 5.0-12.0 [facility] Comment on above: Order Comment: No: D o not add to previous draw Performed By: #### 0 0121, 24418, 70262 ####[facility] [facility].[address] Neutrophils/100 WBC Auto (Bld) 56.1 % Normal 40.0-72.0 [facility] Comment on above: Order Comment: No: D o not add to previous draw Performed By: #### 0 0121, 81315, 69508 ####[facility] Nucleated RBC/100 WBC Ratio (Bld) 0 % Normal 0-0 [facility] Comment on above: Order Comment: No: D o not add to previous draw Performed By: #### 0 0121, 89621, 68166 ####[facility] [facility].[address] PLAT CNT 188 10*3/uL Normal 150-400 [facility] Comment on above: Order Comment: No: D o not add to previous draw Performed By: #### 0 0121, 60158, 54048 ####[facility] [facility].[address] RBC Auto #/vol (Bld) 5.06 10*6/uL Normal 4.20-5.70 [facility] Comment on above: Order Comment: No: D o not add to previous draw Performed By: #### 0 0121, 42084, 07561 ####[facility] [facility].[address] WBC Auto #/vol (Bld) 5.54 10*3/uL Normal 4.00-10.60 [facility] Comment on above: Order Comment: No: D o not add to previous draw Performed By: #### 0 0121, 11469, 37408 ####[facility] [facility].[address] MAGNESIUM BLOODon 09-12-2018 Magnesium mass conc 1.9 mg/dL Normal 1.9-2.7 [facility] Comment on above: Order Comment: No: D o not add to previous draw Performed By: #### 0 0121, 19706, 31390 ####[facility] [facility].[address] UFH HEPARIN ASSAYon 09-12-20 18 UNFRACTIONATED HEPARIN 0.26 IU/mL Low 0.30-0.70 [facility] Comment on above: Result Comment: Lisa roxaban and Apixaban will interfere with the anti Xa assay used tomonitor UFH and LMWH. Performed By: #### 0 0121, 03536, 98055 ####[facility] UNFRACTIONATED HEPARIN 0.72 IU/mL High 0.30-0.70 [facility] Comment on above: Result Comment: Lisa roxaban and Apixaban will interfere with the anti Xa assay used tomonitor UFH and LMWH. Performed By: #### 0 0121, 19439, 20671 ####[facility] UNFRACTIONATED HEPARIN 0.49 IU/mL Normal 0.30-0.70 [facility] Comment on above: Result Comment: Lisa roxaban and Apixaban will interfere with the anti Xa assay used tomonitor UFH and LMWH. Performed By: #### 0 0121, 73286, 22438 ####[facility] [facility].[address] APTTon 09-11-2018 aPTT Coag time (Bld) 101.0 s Critically high 25.0-35.0 [facility] Comment on above: Order Comment: No: [...] RNAT 615 Performed By: #### 0 0121, 24940, 45311 ####[facility] [facility].[address] BASIC METABOLIC PANELon 08-24 Calcium mass conc 8.9 mg/dL Normal 8.6-10.3 [facility] Comment on above: Order Comment: No: D o not add to previous draw Performed By: #### 0 0121, 02045, 50354 ####[facility] [address], [facility] Chloride molar conc 106 mmol/L Normal 98-107 [facility] Comment on above: Order Comment: No: D o not add to previous draw Performed By: #### 0 0121, 94398, 93002 ####[facility] [address], [place] CO2 molar conc 25 mmol/L Normal 21-31 [facility] Comment on above: Order Comment: No: D o not add to previous draw Performed By: #### 0 0121, 49821, 49162 ####[facility] [address], [facility] Creatinine mass conc 0.84 mg/dL Normal 0.70-1.30 [facility] Comment on above: Order Comment: No: D o not add to previous draw Performed By: #### 0 0121, 11506, 98737 ####[facility] [address], [place] GFR/1.73 sq M predicted among blacks MDRD vol rate/area (S/P/Bld) mL/min/{1.73_m2} Normal >60 [facility] Comment on above: Order Comment: No: D o not add to previous draw Performed By: #### 0 0121, 91496, 37479 ####[facility] [address], [place] GFR/1.73 sq M predicted among non-blacks MDRD vol rate/area (S/P/Bld) mL/min/{1.73_m2} Normal >60 [facility] Comment on above: Order Comment: No: D o not add to previous draw Performed By: #### 0 0121, 25931, 73710 ####[facility] [address], [place] Glucose mass conc 103 mg/dL High 70-100 [facility] Comment on above: Order Comment: No: D o not add to previous draw Performed By: #### 0 0121, 16764, 67742 ####[facility] Potassium molar conc 4.0 mmol/L Normal 3.5-5.1 [facility] Comment on above: Order Comment: No: D o not add to previous draw Performed By: #### 0 0121, 02834, 04421 ####[facility] Sodium molar conc 138 mmol/L Normal 136-145 [facility] Comment on above: Order Comment: No: D o not add to previous draw Performed By: #### 0 0121, 54068, 58159 ####[facility] Urea nitrogen mass conc 20 mg/dL Normal 7-25 [facility] Comment on above: Order Comment: No: D o not add to previous draw Performed By: #### 0 0121, 80199, 96516 ####[facility] [facility].[address] CBC W/DIFFon 09-11-2018 ABS BASOPHILS 0.0 10*3/uL Normal 0.0-0.2 [facility] Comment on above: Order Comment: No: D o not add to previous draw Performed By: #### 5 0103 ####[facility] ABS IMM GRANS 0.0 10*3/uL Normal 0.0-0.2 [facility] Comment on above: Order Comment: No: D o not add to previous draw Performed By: #### 5 0103 ####[facility] [place] [address], [facility] ABS NEUTROPHILS 3.1 10*3/uL Normal 1.6-7.6 [facility] Comment on above: Order Comment: No: D o not add to previous draw Performed By: #### 5 0103 ####[facility] [address], [facility] Basophils Auto #/vol (Bld) 0.8 % Normal 0.0-1.0 [facility] Comment on above: Order Comment: No: D o not add to previous draw Performed By: #### 5 0103 ####[facility]3000 [place] [address], [facility] Eosinophils Auto #/vol (Bld) 0.2 10*3/uL Normal 0.0-0.5 [facility] Comment on above: Order Comment: No: D o not add to previous draw Performed By: #### 5 0103 ####[facility] [place] [address], [facility] Eosinophils/100 WBC Auto (Bld) 3.5 % Normal 0.0-6.0 [facility] Comment on above: Order Comment: No: D o not add to previous draw Performed By: #### 5 0103 ####[facility] [facility].[address] Erythrocyte distribution width Auto Ratio (RBC) 12.8 % Normal 11.5-15.0 [facility] Comment on above: Order Comment: No: D o not add to previous draw Performed By: #### 5 0103 ####[facility] [facility].[address] Hematocrit Auto Volume Fraction (Bld) 45.3 % Normal 39.0-50.0 [facility] Comment on above: Order Comment: No: D o not add to previous draw Performed By: #### 5 0103 ####[facility] Hemoglobin mass conc (Bld) 15.3 g/dL Normal 13.0-17.0 [facility] Comment on above: Order Comment: No: D o not add to previous draw Performed By: #### 5 0103 ####[facility] IMMATURE GRANS 0.4 % Normal 0.0-1.0 [facility] Comment on above: Order Comment: No: D o not add to previous draw Performed By: #### 5 0103 ####[facility] Lymphocytes Auto #/vol (Bld) 1.4 10*3/uL Normal 1.2-4.0 [facility] Comment on above: Order Comment: No: D o not add to previous draw Performed By: #### 5 0103 ####[facility] Lymphocytes/100 WBC Auto (Bld) 25.9 % Normal 20.0-45.0 [facility] Comment on above: Order Comment: No: D o not add to previous draw Performed By: #### 5 0103 ####[facility] MCH Auto Entitic mass (RBC) 30.5 pg Normal 27.0-33.0 [facility] Comment on above: Order Comment: No: D o not add to previous draw Performed By: #### 5 0103 ####[facility] MCHC Auto mass conc (RBC) 33.8 g/dL Normal 32.0-35.0 [facility] Comment on above: Order Comment: No: D o not add to previous draw Performed By: #### 5 0103 ####[facility] MCV Auto Entitic volume (RBC) 90.2 fL Normal 82.0-98.0 [facility] Comment on above: Order Comment: No: D o not add to previous draw Performed By: #### 5 0103 ####[facility] Monocytes Auto #/vol (Bld) 0.5 10*3/uL Normal 0.1-1.0 [facility] Comment on above: Order Comment: No: D o not add to previous draw Performed By: #### 5 0103 ####[facility] MONOS 10.2 % Normal 5.0-12.0 [facility] Comment on above: Order Comment: No: D o not add to previous draw Performed By: #### 5 0103 ####[facility] Neutrophils/100 WBC Auto (Bld) 59.2 % Normal 40.0-72.0 [facility] Comment on above: Order Comment: No: D o not add to previous draw Performed By: #### 5 0103 ####[facility] [facility].[address] Nucleated RBC/100 WBC Ratio (Bld) 0 % Normal 0-0 [facility] Comment on above: Order Comment: No: D o not add to previous draw Performed By: #### 5 0103 ####[facility] [facility].[address] PLAT CNT 226 10*3/uL Normal 150-400 [facility] Comment on above: Order Comment: No: D o not add to previous draw Performed By: #### 5 0103 ####[facility] [facility].[address] RBC Auto #/vol (Bld) 5.02 10*6/uL Normal 4.20-5.70 [facility] Comment on above: Order Comment: No: D o not add to previous draw Performed By: #### 5 0103 ####[facility] [facility].[address] WBC Auto #/vol (Bld) 5.21 10*3/uL Normal 4.00-10.60 [facility] Comment on above: Order Comment: No: D o not add to previous draw Performed By: #### 5 0103 ####[facility] [facility].[address] MAGNESIUM BLOODon 09-11-2018 Magnesium mass conc 1.8 mg/dL Low 1.9-2.7 [facility] Comment on above: Order Comment: No: D o not add to previous draw Performed By: #### 0 0121, 49707, 39078 ####[facility] [facility].[address] PHOSPHORUS BLOODon 8 Phosphate mass conc 3.0 mg/dL Normal 2.5-5.0 [facility] Comment on above: Order Comment: No: D o not add to previous draw Performed By: #### 0 0121, 12758, 81567 ####[facility] PROTHROMBIN TIMEon 8 INR Coag RelTime (PPP) 1.01 {INR} Normal 0.91-1.16 [facility] Comment on above: Order Comment: No: [...] OF ACTION, CLINICALEFFECTIVENESS, AND OPTIMAL THERAPEUTIC RANGE. [id number]. Performed By: #### 0 0121, 54857, 60683 ####[facility] [facility].[address] Prothrombin time (PT) Coag time (PPP) 13.3 s Normal 12.3-14.8 [facility] Comment on above: Order Comment: No: D o not add to previous draw Result Comment: ALL RESULTS MUST BE INTERPRETED WITH RESPECT TO BLOOD DRAWING ARTIFACTOR DILUTION ERROR OF ANTICOAGULANT AT THE TIME OF SAMPLING. Performed By: #### 0 0121, 05023, 42156 ####[facility] [facility].[address] TROPONIN-Ion 09-11-2018 Troponin I.cardiac mass conc 0.00 ng/mL Normal 0.00-0.04 [facility] Comment on above: Order Comment: No: D o not add to previous draw Result Comment: REFE RENCE RANGES: 0.00 - 0.14 ng/ml NEGATIVE 0.15 - 0.25 ng/ml INDETERMINATE > 0.25 ng/ml INDICATIVE OF AN M.I. Performed By: #### 3 5200 ####[facility] [place] [address], [facility] UFH HEPARIN ASSAYon 09-11-20 18 UNFRACTIONATED HEPARIN 0.40 IU/mL Normal 0.30-0.70 [facility] Comment on above: Result Comment: Lisa roxaban and Apixaban will interfere with the anti Xa assay used tomonitor UFH and LMWH. Performed By: #### 0 0121, 37111, 10127 ####[facility] UNFRACTIONATED HEPARIN 0.39 IU/mL Normal 0.30-0.70 [facility] Comment on above: Result Comment: Lisa roxaban and Apixaban will interfere with the anti Xa assay used tomonitor UFH and LMWH. Performed By: #### 0 0121, 21229, 37369 ####[address] UNFRACTIONATED HEPARIN 0.70 IU/mL Normal 0.30-0.70 [facility] Comment on above: Result Comment: Poneto roxaban and Apixaban will interfere with the anti Xa assay used tomonitor UFH and LMWH. Performed By: #### 0 0121, 73816, 38351 ####[address] UNFRACTIONATED HEPARIN 0.49 IU/mL Normal 0.30-0.70 [facility] Comment on above: Result Comment: Lisa roxaban and Apixaban will interfere with the anti Xa assay used tomonitor UFH and LMWH. Performed By: #### 3 0477 ####[address] APTTon 09-10-2018 aPTT Coag time (Bld) 26.2 s Normal 25.0-35.0 [facility] Comment on above: Result Comment: ALL RESULTS [...] THIS PURPOSE. Performed By: #### 5 6101, 92405 ####[address] CBC W/DIFFon 09-10-2018 ABS BASOPHILS 0.0 10*3/uL Normal 0.0-0.2 [facility] Comment on above: Order Comment: No: D o not add to previous draw Performed By: #### 5 0103 ####[facility] [facility] [place] [address], [facility] ABS IMM GRANS 0.0 10*3/uL Normal 0.0-0.2 [facility] Comment on above: Order Comment: No: D o not add to previous draw Performed By: #### 5 0103 ####[facility] [place] [address], [facility] ABS NEUTROPHILS 6.0 10*3/uL Normal 1.6-7.6 [facility] Comment on above: Order Comment: No: D o not add to previous draw Performed By: #### 5 0103 ####[facility] [facility] [place] [address], [facility] Basophils Auto #/vol (Bld) 0.4 % Normal 0.0-1.0 [facility] Comment on above: Order Comment: No: D o not add to previous draw Performed By: #### 5 0103 ####[facility] [facility] [place] [address], [facility] Eosinophils Auto #/vol (Bld) 0.1 10*3/uL Normal 0.0-0.5 [facility] Comment on above: Order Comment: No: D o not add to previous draw Performed By: #### 5 0103 ####[facility] [place] [address], [facility] Eosinophils/100 WBC Auto (Bld) 1.1 % Normal 0.0-6.0 [facility] Comment on above: Order Comment: No: D o not add to previous draw Performed By: #### 5 0103 ####[facility] [place] [address], [facility] Erythrocyte distribution width Auto Ratio (RBC) 12.5 % Normal 11.5-15.0 [facility] Comment on above: Order Comment: No: D o not add to previous draw Performed By: #### 5 0103 ####[facility] Hematocrit Auto Volume Fraction (Bld) 48.8 % Normal 39.0-50.0 [facility] Comment on above: Order Comment: No: D o not add to previous draw Performed By: #### 5 0103 ####[facility] Hemoglobin mass conc (Bld) 16.6 g/dL Normal 13.0-17.0 [facility] Comment on above: Order Comment: No: D o not add to previous draw Performed By: #### 5 0103 ####[facility] IMMATURE GRANS 0.3 % Normal 0.0-1.0 [facility] Comment on above: Order Comment: No: D o not add to previous draw Performed By: #### 5 3 ####[facility] Lymphocytes Auto #/vol (Bld) 1.2 10*3/uL Normal 1.2-4.0 [facility] Comment on above: Order Comment: No: D o not add to previous draw Performed By: #### 5 0103 ####[facility] Lymphocytes/100 WBC Auto (Bld) 14.7 % Low 20.0-45.0 [facility] Comment on above: Order Comment: No: D o not add to previous draw Performed By: #### 5 0103 ####[facility] MCH Auto Entitic mass (RBC) 30.3 pg Normal 27.0-33.0 [facility] Comment on above: Order Comment: No: D o not add to previous draw Performed By: #### 5 3 ####[facility] MCHC Auto mass conc (RBC) 34.0 g/dL Normal 32.0-35.0 [facility] Comment on above: Order Comment: No: D o not add to previous draw Performed By: #### 5 3 ####[facility] MCV Auto Entitic volume (RBC) 89.2 fL Normal 82.0-98.0 [facility] Comment on above: Order Comment: No: D o not add to previous draw Performed By: #### 5 3 ####[facility] Monocytes Auto #/vol (Bld) 0.6 10*3/uL Normal 0.1-1.0 [facility] Comment on above: Order Comment: No: D o not add to previous draw Performed By: #### 5 3 ####[facility] MONOS 7.9 % Normal 5.0-12.0 [facility] Comment on above: Order Comment: No: D o not add to previous draw Performed By: #### 5 3 ####[facility] Neutrophils/100 WBC Auto (Bld) 75.6 % High 40.0-72.0 [facility] Comment on above: Order Comment: No: D o not add to previous draw Performed By: #### 5 3 ####[facility] [place] [address] Nucleated RBC/100 WBC Ratio (Bld) 0 % Normal 0-0 [facility] Comment on above: Order Comment: No: D o not add to previous draw Performed By: #### 5 0103 ####[facility] [address], [facility] PLAT CNT 243 10*3/uL Normal 150-400 [facility] Comment on above: Order Comment: No: D o not add to previous draw Performed By: #### 5 0103 ####[facility] [place] [address], [facility] RBC Auto #/vol (Bld) 5.47 10*6/uL Normal 4.20-5.70 [facility] Comment on above: Order Comment: No: D o not add to previous draw Performed By: #### 5 0103 ####[facility] [place] [address], [facility] WBC Auto #/vol (Bld) 7.87 10*3/uL Normal 4.00-10.60 [facility] Comment on above: Order Comment: No: D o not add to previous draw Performed By: #### 5 3 ####[facility] [facility].[address] COMP METABOLIC PANELon 09-10 Albumin mass conc 4.0 g/dL Normal 3.5-5.7 [facility] Comment on above: Order Comment: No: D o not add to previous draw Performed By: #### 0 0121, 61624, 66879 ####[facility] ALKALINE PHOSPH 59 IU/L Normal 34-104 [facility] Comment on above: Order Comment: No: D o not add to previous draw Performed By: #### 0 0121, 64233, 89655 ####[facility] ALT enzyme act/vol 22 U/L Normal 7-52 [facility] Comment on above: Order Comment: No: D o not add to previous draw Performed By: #### 0 0121, 79462, 71434 ####[facility] [id number], [facility] AST enzyme act/vol 20 U/L Normal 13-39 [facility] Comment on above: Order Comment: No: D o not add to previous draw Performed By: #### 0 0121, 57339, 35690 ####[facility] [address], [facility] Bilirubin mass conc 0.8 mg/dL Normal 0.3-1.0 [facility] Comment on above: Order Comment: No: D o not add to previous draw Performed By: #### 0 0121, 07451, 49481 ####[facility] [address], [facility] Calcium mass conc 8.8 mg/dL Normal 8.6-10.3 [facility] Comment on above: Order Comment: No: D o not add to previous draw Performed By: #### 0 0121, 34337, 61117 ####[facility] [address], [facility] Chloride molar conc 103 mmol/L Normal 98-107 [facility] Comment on above: Order Comment: No: D o not add to previous draw Performed By: #### 0 0121, 03163, 48256 ####[facility] [address], [place] CO2 molar conc 28 mmol/L Normal 21-31 [facility] Comment on above: Order Comment: No: D o not add to previous draw Performed By: #### 0 0121, 03361, 00553 ####[facility] [address], [place] Creatinine mass conc 0.93 mg/dL Normal 0.70-1.30 [facility] Comment on above: Order Comment: No: D o not add to previous draw Performed By: #### 0 0121, 74729, 25810 ####[facility] [address], [place] GFR/1.73 sq M predicted among blacks MDRD vol rate/area (S/P/Bld) mL/min/{1.73_m2} Normal >60 [facility] Comment on above: Order Comment: No: D o not add to previous draw Performed By: #### 0 0121, 59099, 43381 ####[facility] [address], [place] GFR/1.73 sq M predicted among non-blacks MDRD vol rate/area (S/P/Bld) mL/min/{1.73_m2} Normal >60 [facility] Comment on above: Order Comment: No: D o not add to previous draw Performed By: #### 0 0121, [id number], [id number] ####[facility] [address], [place] Glucose mass conc 94 mg/dL Normal 70-100 [facility] Comment on above: Order Comment: No: D o not add to previous draw Performed By: #### 0 0121, [id number], [id number] ####[facility] [address], [place] Potassium molar conc 4.0 mmol/L Normal 3.5-5.1 [facility] Comment on above: Order Comment: No: D o not add to previous draw Performed By: #### 0 0121, 47072, 50007 ####[facility] [address], [place] Protein mass conc 6.8 g/dL Normal 6.0-8.3 [facility] Comment on above: Order Comment: No: D o not add to previous draw Performed By: #### 0 0121, 82559, 68601 ####[facility] [address], [place] Sodium molar conc 140 mmol/L Normal 136-145 [facility] Comment on above: Order Comment: No: D o not add to previous draw Performed By: #### 0 0121, 04553, 03308 ####[facility] [facility] [place] [address], [facility] Urea nitrogen mass conc 19 mg/dL Normal 7-25 [facility] Comment on above: Order Comment: No: D o not add to previous draw Performed By: #### 0 0121, 22709, 51571 ####[facility] [facility] [place] [place] [address], [facility] PROTHROMBIN TIMEon 10--201 8 INR Coag RelTime (PPP) 0.93 {INR} Normal 0.91-1.16 [facility] Comment on above: Result Comment: ACCC P RECOMMENDED INR FOR WARFARIN THERAPY CONDITION INRPROPHYLAXIS OF VENOUS THROMBOSIS 2-3(HIGH-RISK SURGERY)TREATMENT OF VENOUS THROMBOSIS 2-3TREATMENT OF PULMONARY EMBOLISM 2-3PREVENTION OF SYSTEMIC EMBOLISM: 2-3 ACUTE MYOCARDIAL INFARCTION TISSUE HEART VALVES VALVULAR HEART DISEASE ATRIAL FIBRILLATION RECURRENT SYSTEMIC EMBOLISMMECHANICAL HEART VALVE 2.5-3.5 FROM: ORAL ANTICOAGULANTS. MECHANISM OF ACTION, CLINICALEFFECTIVENESS, AND OPTIMAL THERAPEUTIC RANGE. [id number];108:231S-246S. Performed By: #### 5 6101, [id number] ####[facility] [facility] [place] [address], [facility] Prothrombin time (PT) Coag time (PPP) 12.5 s Normal 12.3-14.8 The [facility] Comment on above: Result Comment: ALL RESULTS MUST BE INTERPRETED WITH RESPECT TO BLOOD DRAWING ARTIFACTOR DILUTION ERROR OF ANTICOAGULANT AT THE TIME OF SAMPLING. Performed By: #### 5 6101, [id number] ####[facility] [facility].[address] TROPONIN-Ion 09-10-2018 Troponin I.cardiac mass conc 0.00 ng/mL Normal 0.00-0.04 [facility] Comment on above: Order Comment: No: D o not add to previous draw Result Comment: REFE RENCE RANGES: 0.00 - 0.14 ng/ml NEGATIVE 0.15 - 0.25 ng/ml INDETERMINATE > 0.25 ng/ml INDICATIVE OF AN M.I. Performed By: #### 3 5200 ####[facility] [facility] [place] [address], [facility] Troponin I.cardiac mass conc 0.00 ng/mL Normal 0.00-0.04 [facility] Comment on above: Result Comment: REFE RENCE RANGES: 0.00 - 0.14 ng/ml NEGATIVE 0.15 - 0.25 ng/ml INDETERMINATE > 0.25 ng/ml INDICATIVE OF AN M.I. Performed By: #### 0 0121, [id number], [id number] ####[facility] [address], [facility] TSH3on 09-10-2018 TSH 3RD GENERATION 1.05 uIU/mL Normal 0.34-5.60 [facility] Comment on above: Performed By: #### 0 0121, 94905, 76810 ####[facility] [facility].[address] Vital Signs Date Time Vital Sign Value Performing Clinician Shashank linn 10-01-2023 08:20-0500 Body height 193.04 cm Sher Whitfield Other [facility] Other 10-01-2023 08:20-0500 Body mass index (BMI) [Ratio] 27.75 kg/m2 Sher Nahid Other [facility] Other 10-01-2023 08:20-0500 Body weight 103.42 kg Sher Whitfield Other [facility] Other 1960 23:00-0500 >na< Ellie Rodríguez Dept. of Dermato logy Encounters Encounter Date Encounter Type Care Provider Facility Start: 01-02-2025 End: 01-02-2025 ambulatory [facility] Start: 10-31-2024 End: 10-31-2024 ambulatory [facility] Start: 09-12-2024 End: 09-12-2024 ambulatory Gold Choi MD Facility: [facility] Start: 05-23-2024 End: 05-23-2024 ambulatory Gold Villatoroitis Facility: [facility] Start: 05-09-2024 End: 05-09-2024 ambulatory Gold Villatoroitis Facility: [facility] Start: 05-02-2024 End: 05-02-2024 ambulatory Gold Villatoroitis [facility] Start: 11-10-2023 End: 11-10-2023 ambulatory [facility] Start: 10-01-2023 Office outpatient ne w 30 minutes Sher Whitfield [facility] Start: 10-01-2023 End: 10-01-2023 ambulatory Sher Whitfield Facility:[facility] Start: 10-01-2023 End: 10-01-2023 ambulatory MD Kacy Jacobson Work Phone: [facility] Work Phone: Start: 10-01-2023 End: 10-01-2023 Patient encounter procedure MD Kacy Jacobson Work Phone: [facility] Work Phone: Start: 03-24-2023 Luke Reinoso Dept. [...] without abnormal findings DR KACY JACOBSON . [facility] Start: 01-22-2023 End: 01-23-[address] [...] End: 09-14-2018 Patient encounter procedure DEFAULT PHYSICIAN Facility:[facility] Start: 09-10-2018 End: 09-14-2018 Evaluation and management of inpatient HANI CHLOÉ Facility:[facility] Start: 08-25-2018 End: 08-26-2018 Patient encounter procedure DEFAULT PHYSICIAN Facility:[facility] Procedures Date Procedure Procedure Detail [...] URIC, TSH, CMP, LIPID #### [facility] [address] [address] [address] Ayush Sorto Start: 09-13-2018 Tenriism of Cardi ac Rhythm, Single LIZETTE V MOUKARBEL Immunizations Immunization Date Immunization Notes Care Provider Taylor madrid 1960 pneumococcal conjuga te vaccine, 7 valent Ellie Rodríguez Dept. of Dermatology Payers Date Payer Category Payer Unknown [id number] 2023 Medicare 2023 Self-pay 2006 Private Health Insurance [id number] 1960 Unknown [id number] 1960 Unknown [id number] 2.16.8 40.1.835564.3.579.2.647 1959 Unknown [id number] 2.16.8 40.1.785681.3.579.2.647 1959 Unknown [id number] 2.16.8 40.1.555013.3.579.2.647 1959 Unknown [id number] 2.16.84 0.1.732629.3.579.2.593 1959 Unknown [id number] 2.16.84 0.1.452716.3.579.2.593 1959 Unknown [id number] 2.16.84 0.1.772511.3.579.2.593 1959 Unknown [id number] 2.16.84 0.1.173786.3.579.2.593 1959 Unknown [id number] 2.16.84 0.1.200892.3.579.2.593 1959 Unknown [id number] 2.16.84 0.1.601386.3.579.2.593 1959 Unknown [id number] 2.16.84 0.1.497818.3.579.2.593 1959 Unknown [id number] 2.16. 840.1.218790.3.579.2.356 1959 Unknown [id number] 2.16. 840.1.840246.3.579.2.356 1959 Unknown [id number] 2.16. 840.1.238626.3.579.2.356 1959 Unknown [id number] 2.16. 840.1.328293.3.579.2.196 1959 Unknown [id number] 2.16. 840.1.310770.3.579.2.196 1959 Unknown [id number] 2.16. 840.1.343652.3.579.2.196 1959 Unknown [id number] 2.16. 840.1.877507.3.579.2.196 1960 Unknown [id number] 2.16. 840.1.578295.3.579.2.196 Unknown Unknown [id number] 2.16.8 40.1.078026.3.579.2.531 Social History Date Type Detail Facility Start: 03-02-2023 Dept. of D ermatology Start: 1960 End: 1960 Sex Assigned At Male [facility] Sex Assigned At Sex Assigned At Bir th [facility] Other Goals Date Patient Goal Desired Activity /State Progress note 10-31-2024 Note Date & Type Note Facility 10-31-2024 Note [facility] Subjective Reece Hogue is a [...] tests EKG: Echo: 12/15/2023 at [facility] 09/24/2022 MOJGAN 09/13/2018 Global left ventricular [...] x 3 whi (more content not included)... [facility] Progress note 11-10-2023 Note Date & Type Note Facility 11-10-2023 Note Patient here for 6 m o follow up chronic afib. No recent labs or imaging. Denies chest pain, SOB, palpitations, lightheadedness/syncope, and bleeding on Xarelto. BP at home when checked averages around 120/80. Review of Systems Musculoskeletal: Positive for myalgias. All other systems reviewed and are negative. [facility] Progress note 11-10-2023 Note Date & Type Note Facility 11-10-2023 Note [place] Electrophysiology Consult Note Reason for visit: afib [...] recently cardioverted by me at [facility] to SR . He states no significantly [...] rhonchi Cardiovascular Rat (more content not included)... [facility] Evaluation note 10-01-2023 Note Date & Type [...] Pain in left leg (ICD-10 - M79.605) [facility] Other Evaluation note Note Date & Type Note Facility Evaluation note N/A Dept. of Dermato logy Evaluation note Note Date & Type Note Facility Evaluation note No assessment information availa [facility] Work Phone: History general Narrative - Reported Note Date & Type Note Facility History general Narrative - Reported Type Medical History heart disease Medical History melanoma Surgical History melanoma excision Hospitalization History see above [facility] Other Reason for referral (narrative) Note Date [...] 2023 7:32am Hospital Course Note MR[id number] [facility] Name: Reece Hogue Admitted: 09/10/2018 Discharged: 09/14/2018 Date of : 1960 Physician: Primo Glaser MD DISCHARGE SUMMARYDISCHARGE ATTENDING PHYSICIAN: Primo Glaser [facility] PHYSICIAN: Dr. Jacobson at [phone].PRINCIPAL DIAGNOSIS: Atrial fibrillation/flutter, status post TEEconversion currently [...] section and content) DATE CREATED AUTHOR 10/23/2018 [facility] DATE CREATED AUTHOR AUTHOR'S ORGANIZ ATION 02/27/2023 [facility] DATE CREATED AUTHOR AUTHOR'S ORGANIZ ATION 03/25/2023 [facility] DATE CREATED AUTHOR AUTHOR'S ORGANIZ ATION 10/09/2023 [facility] DATE CREATED AUTHOR AUTHOR'S ORGANIZ ATION 11/03/2024 [facility] DATE CREATED AUTHOR AUTHOR'S ORGANIZ ATION 01/10/2025 [facility] Care Teams (unrecognized sec tion and content) [...] BE BASED ON THE PRIMARY CLINICAL RECORDS. [facility] [employer] [facility]. provides no warranty or guarantee of the accuracy or completeness of information in this document.
--- NOTE | 2025-01-12 08:39 | P.CN_ITS ---
Consult Note: HPI Data of Consult Patient: known to practice within the last 3 years Requesting Physician: Shannan Gautam NP Primary Care Provider: Ross Jacobson MD Consult Narrative Reason for consult: low back, bilateral lower extremity pain Narrative: 65yom who presents for evaluation. longstanding low back, bilateral lower extremity pain. worsened in past several months. used to walk long distances, now has significant trouble with ambulation. lumbar mri reviewed, significant for severe stenosis at l2-3, l3-4, l4-5. significant facet arthropathy at multiple lumbar levels. engaged in chiropractic therapy >6 weeks, without relief. uses advil. denies adverse med side effects. on xarelto, should avoid all NSAIDs. Recently underwent repeat bilateral L5/S1 TFESI with 80% improvement ongoing. cc:: CC: Shannan Gautam NP Review of Systems 2 ROS Status of ROS 10 or more systems reviewed and unremark able except as noted in history and below Musculoskeletal Reports: back pain and extremity pain PFSH PFSH Medical History Melanoma ?C43.9 - Malignant melanoma of skin, unspecified (ICD-10) Low back pain ?M54.50 - Low back pain, unspecified (ICD-10) Sleep apnea ?G47.30 - Sleep apnea, unspecified (ICD-10) Afib ?I48.91 - Unspecified atrial fibrillation (ICD-10) Surgical History H/O knee surgery ?Z98.890 - Other specified postprocedural states (ICD-10) Meds Home Medications and Allergies Home Medications ?Medication ?Instructions ?Recorded ?Confirmed ?Type lisinopril 10 mg tablet 10 mg 05/02/24 History metoprolol tartrate 75 mg tablet 75 mg 05/02/24 History multivitamin 1 tab PO DAILY 05/02/24 01/02/25 History omega 1-kpi-tvu-fish oil 1,000 mg 1 cap PO DAILY 05/02/24 01/02/25 History (120 mg-180 mg) capsule (Fish Oil) rivaroxaban 20 mg tablet (Xarelto) 20 mg 05/02/24 History spironolactone 25 mg tablet 25 mg 05/02/24 History Allergies Allergy/AdvReac Type Severity Reaction Status Date / Time No Known Drug Allergies Allergy Verified 01/02/25 09:52 Exam Constitutional Documenting provider has reviewed patient's vital signs: yes Common normals: no apparent distress, oriented x3, healthy appearing, alert and well nourished General appearance: cooperative HENMT Common normals: normocephalic, hearing grossly normal bilaterally and moist oral mucous membranes Head and scalp: normocephalic Eye Common normals: PERRL Pupil: PERRL Neck & C-Spine Common normals: full ROM General: normal visual inspection Chest Common normals: inspection of chest normal Respiratory Common normals: normal respiratory effort, no retractions and no use of accessory muscles Back & Pelvis Lumbar spine/lower back: lumbar ROM normal and straight leg raise negative bilaterally; ROM not limited and no pain with ROM Other: little pain following bilateral L4/5/S1 pattern strength 5/5 in BLE Neuro Common normals: oriented x3, CN's II-XII intact bilaterally, moves all extremities, no focal motor deficits, no sensory deficits noted and deep tendon reflexes 2+ bilaterally Sensorium/orientation: alert Motor exam: strength 5/5 throughout and no movement abnormalities noted Psych Common normals: mental status grossly normal, thought process normal, cooperative, affect normal, speech normal and activity/motor behavior normal Speech: normal speech Thought process: normal thought process Results Additional Findings Additional findings: If on a controlled substance or opioids, I have checked an [place] report on this patient and there are no aberrancies noted in the prescribing history.??If on a controlled substance or opioid a drug screen was completed and reviewed within the last year, and if there has not been a drug screen completed we ordered one today to monitor higher risk, state monitored pain medication use. As part of providing excellent, safe, comprehensive care, the following was completed at our patient's visit: 1. A medication reconciliation and review to ensure accurate knowledge of current/active medications, including asking our patients to inform us about any bvai-kkk-[id number] medications or herbal remedies/nutritional supplements/alternative remedies. 2. A review to specifically ensure our patients have had annual screening for screening for depression, screening for tobacco use, and screening for unhealthy alcohol use. For concerning screenings had a discussion with the patient, provided patient education, and recommended follow-up with primary care provider when appropriate. If patient noted with a risk of falling, they received education on strength, gait, and balance training to prevent future risk of falling. Portions of this note may have been carried over from the previous visit and updated as appropriate. Please note this office utilizes paper charting in addition to the electronic medical record. A list of current medications, vitals, and PMH is available there as the clinical staff outside of myself do not have access to [employer] charting during the clinic day operations. As part of providing quality comprehensive care the current medications, vitals, and PMH were reviewed in the paper chart. Assessment and Plan Assessment and Plan (1) Lumbar stenosis with neurogenic claudication: Plan repeat bilateral L4/5 TFESI under fluoroscopy for lumbar stenosis with NC. previous injection provided >50% improvement in pain and functional ability for 3 months continue HEP as tolerated update lumbar xray with flexion to evaluate stability in consideration for vertiflex in the future f/u wtih Dr Choi in 3 months per pt request
== END 2025-01-12 08:08 | disposition home or self-care (01) ==
LOC: PM 08:07
PROVIDERS: PCP Family Medicine; Visit Provider Nurse Practitioner
DX: M48.062 Spinal stenosis, lumbar region with neurogenic claudication (principal)
CPT/HCPCS: G0463

== ENCOUNTER 2025-04-04 12:41 | Outpatient (OUT) | payer OTHER, SELFPAY ==
--- NOTE | 2025-04-04 12:49 | XR_ITS ---
The [place] [address] Patient Name: REECE HOGUE MRN: [id number] date: 1960 Sex: M Assigned Patient Location: [facility] Current Patient Location: [facility] Accession/Order Number: [id number] Exam Date: 04/04/2025 13:32 Report Date: 04/04/2025 13:35 At the request of: MARCUS UGARTE NP Procedure: XR lumbar spine 6V w bending XR lumbar spine 6V w bending 04/04/2025 12:58 PM SIGNS AND SYMPTOMS: ^Asses For Instability, Listhesis ^Lumbar Stenosis PROTOCOLS: Frontal, lateral, and oblique radiographs of the lumbar spine including flexion and extension COMPARISON: 04/22/2024 FINDINGS: There is 7 mm of retrolisthesis of L2 upon L3 without pathologic movement on flexion or extension. There is severe disc height loss at L2-L3. There is moderate disc height loss throughout otherwise. There is mild anterior osteophyte formation throughout. Facet hypertrophy which is greatest in the lower lumbar spine. Vertebral body heights are preserved.. The sacrum and sacroiliac joints are normal. XR/XR lumbar spine 6V w bending IMPRESSION: No acute bony injury. There is 7 mm of retrolisthesis of L2 upon L3 without pathologic movement on flexion or extension. Multilevel degenerative changes redemonstrated as above. This cyst is Impression dictated by: Jorge Walker M.D. 04/04/2025 1:35 PM Dictation Location: [place] [address] Electronically authenticated by: [id number] Y Date: 04/04/2025 13:35
== END 2025-04-04 12:42 | disposition home or self-care (01) ==
LOC: RAD 12:43
PROVIDERS: PCP Family Medicine; Visit Provider Nurse Practitioner
DX: M48.062 Spinal stenosis, lumbar region with neurogenic claudication (principal); M51.369 Other intervertebral disc degeneration, lumbar region without mention of lumbar back pain or lower extremity pain
CPT/HCPCS: 72114

== ENCOUNTER 2025-04-10 12:23 | Outpatient (OUT) | payer OTHER, SELFPAY ==
--- NOTE | 2025-04-10 13:42 | P.CN_ITS ---
Consult Note: HPI Data of Consult Patient: known to practice within the last 3 years Consult date: 04/10/25 Requesting Physician: Gold Choi MD Primary Care Provider: Ross Jacobson MD Consult Narrative Reason for consult: low back, bilateral lower extremity weakness, numbness Narrative: 65yom who presents for assessment. notes persistence of pain that radiates into bilateral extremities. imaging reviewed, significant for multilevel severe stenosis. patient adamant that he is not interested in surgical options. continues in a series of provider directed home exercises, which he has attempted >6 weeks, without benefit. uses otc meds as needed. cc:: CC: Gold Choi MD Review of Systems ROS Status of ROS 10 or more systems reviewed and unremark able except as noted in history and below [facility] Medical History Melanoma ?C43.9 - Malignant melanoma of skin, unspecified (ICD-10) Low back pain ?M54.50 - Low back pain, unspecified (ICD-10) Sleep apnea ?G47.30 - Sleep apnea, unspecified (ICD-10) Afib ?I48.91 - Unspecified atrial fibrillation (ICD-10) Surgical History H/O knee surgery ?Z98.890 - Other specified postprocedural states (ICD-10) Meds Home Medications and Allergies Home Medications ?Medication ?Instructions ?Recorded ?Confirmed ?Type lisinopril 10 mg tablet 10 mg 05/02/24 History metoprolol tartrate 75 mg tablet 75 mg 05/02/24 Histo ry multivitamin 1 tab PO DAILY 05/02/2412/24 History omega 6-ueg-soc-fish oil 1,000 mg 1 cap PO DAILY 05/0201/02/25 History (120 mg-180 mg) capsule (Fish Oil) rivaroxaban 20 mg tablet (Xarelto) 20 mg 05/02/24 His tory spironolactone 25 mg tablet 25 mg 05/02/24 History Allergies Allergy/AdvReac Type Severity Reaction Status Date / Time No Known Drug Allergies Allergy Verified 01/02/25 09:52 Exam Narrative Exam Narrative: Psych-alert and oriented x 3. Attentive and appropriate, constitutionally normal, displays normal mood and affect per situation. There are no obvious deficits in memory, reasoning, or intellect.? Skin-no obvious rashes, bruising, erythema noted to the patient's area of pain.? Extremities- extremities are warm with minimal edema and palpable pulses. Lumbar-tenderness to palpation noted in the lumbar spine and paraspinal musculature. Pain is not elicited with flexion, extension, and lateral rotation of the lumbar spine. Range of motion is not diminished with these motions. Facet loading maneuvers are negative.? Strength-noted to be unremarkable Sensory-no notable sensory deficits in the bilateral lower extremities to touch or pinprick in all dermatomal distributions with the exception to decreased sensation to the bilateral L4, 5 dermatomal distribution Coordination remains intact.? Gait remains non-antalgic. Assessment and Plan Assessment and Plan (1) Lumbar stenosis with neurogenic claudication: Plan 65yom who presents for assessment. failed conservative measures, as noted. imaging reviewed, as noted. given symptoms and imaging, discussed that he may benefit from scs vs. surgical evaluation. he is adamant that does not want any type of back surgery. he has undergone various interventional modalities, with fleeting benefit. at this point, would be prudent to attempt scs trial. will order psych eval in anticipation of this. he is in agreement. will have xarelto hold clearance before trial is complete. meds reviewed, no changes. follow up after procedure.
== END 2025-04-10 12:24 | disposition home or self-care (01) ==
LOC: PM 12:23
PROVIDERS: PCP Family Medicine; Visit Provider Anesthesiology
DX: M48.062 Spinal stenosis, lumbar region with neurogenic claudication (principal)
CPT/HCPCS: G0463